=== PATIENT | female | born 1935 | race Caucasian/White ===

== ENCOUNTER 2016-05-03 12:39 | Emergency (ER) | payer MEDICARE, OTHER ==
[2016-05-03 12:58] LABS: Glucose,Whole Blood 226 mg/dL (75-99)
[2016-05-03] MEDS ORDERED: SODIUM CHLORIDE 0.9% 1,000 ML IV STA ×2 (13:02)
--- NOTE | 2016-05-03 13:28 | ED ---
General Adult HPI - General Chief complaint: Syncope Stated complaint: Fall/left arm pain Time Seen by Provider: 05/03/16 12:45 Source: patient, RN notes reviewed, old records reviewed Mode of arrival: EMS Limitations: physical limitation - History of Present Illness Initial comments: This is an 80-year-old female to the ER status post fall. Patient has syncope then fall. Patient states she went to give her son a hog he is coming over the house, she turned around and then doesn't remember anything woke up on the ground. Patient denies hitting her head complaining of left shoulder pain. Patient denies any history of chest pain shortness of breath without pain or headache. Patient currently is without chest patient was developing a headache. Patient left - Related Data Home Medications Medication Instructions Recorded Confirmed Donepezil [Aricept] 10 mg PO HS 02/15/15 05/03/16 Fenofibrate [Lofibra] 160 mg PO HS 02/15/15 05/03/16 Pantoprazole Sodium [Protonix] 40 mg PO QAM 02/15/15 05/03/16 Ascorbic Acid [Vitamin C] 500 mg PO HS 05/03/16 05/03/16 Cetirizine HCl 10 mg PO DAILY 05/03/16 05/03/16 Cholecalciferol [Vitamin D3] 5,000 unit PO HS 05/03/16 05/03/16 Clopidogrel [Plavix] 75 mg PO DAILY 05/03/16 05/03/16 Ferrous Sulfate [Feosol] 325 mg PO HS 05/03/16 05/03/16 Furosemide [Lasix] 40 mg PO DAILY 05/03/16 05/03/16 Glimepiride [Amaryl] 1 mg PO AC-BRKFST 05/03/16 05/03/16 Losartan/Hydrochlorothiazide 0.5 tab PO QAM 05/03/16 05/03/16 [Losartan-Hctz 100-25 mg Tab] Metoprolol Tartrate [Lopressor] 12.5 mg PO HS 05/03/16 05/03/16 Multivitamins, Thera [Multivitamin] 1 tab PO HS 05/03/16 05/03/16 Potassium Chloride ER [K-Dur 10] 10 meq PO HS 05/03/16 05/03/16 Sennosides [Senna] 8.6 mg PO HS PRN 05/03/16 05/03/16 Sertraline [Zoloft] 100 mg PO HS 05/03/16 05/03/16 Allergies Allergy/AdvReac Type Severity Reaction Status Date / Time No Known Allergies Allergy Verified 05/03/16 13:39 Review of Systems ROS Statement: Those systems with pertinent positive or pertinent negative responses have been documented in the HPI. ROS Other: All systems not noted in ROS Statement are negative. Past Medical History Past Medical History: Coronary Artery Disease (CAD), Diabetes Mellitus, GERD/ Reflux, Hyperlipidemia, Hypertension, Liver Disease, Myocardial Infarction (NH) , Osteoarthritis (OA) Additional Past Medical History / Comment(s): 02/15/15 Pt transferred from [facility] with L sided acdominal pain with onset 1500 02/14/15. Pain radiated to L shoulder. Pt admitted with SBO. Other HX: dysphagia at times, falls, cirrhosis, anemia, blood in stool. Last Myocardial Infarction Date:: 2009 History of Any Multi-Drug Resistant Organisms: None Reported Past Surgical History: Adenoidectomy, Cholecystectomy, Coronary Bypass/CABG, Heart Catheterization, Tonsillectomy, Tubal Ligation Additional Past Surgical History / Comment(s): 2009 Cab[facility] in [place], 04/16/10 colonoscopy with benign polypectomy, liver surgery-unkn what type, cataract removal bilaterally. Past Anesthesia/Blood Transfusion Reactions: Postoperative Nausea & Vomiting ( PONV) Past Psychological History: Depression Additional Psychological History / Comment(s): Pt has history of depression but states that was in the past and no longer an issue for her. She is . She lives alone. She uses a walker to ambulate. She does not drive-her family take her places. Smoking Status: Never smoker Past Alcohol Use History: None Reported Past Drug Use History: None Reported - Past Family History Father Family Medical History: Diabetes Mellitus Additional Family Medical History / Comment(s): Pt believes her father was diabetic. He had toes amputated. He in his 90s Mother Family Medical History: Unable to Obtain Additional Family Medical History / Comment(s): Pt knows that her mother was unhealthy but does not know what health problems she might have had. she at 87yrs. General Exam Limitations: physical limitation General appearance: alert, in no apparent distress Head exam: Present: atraumatic, normocephalic, normal inspection Eye exam: Present: normal appearance, PERRL, EOMI. Absent: scleral icterus, conjunctival injection, periorbital swelling ENT exam: Present: normal exam, mucous membranes moist Neck exam: Present: normal inspection. Absent: tenderness, meningismus, lymphadenopathy Respiratory exam: Present: normal lung sounds bilaterally. Absent: respiratory distress, wheezes, rales, rhonchi, stridor Cardiovascular Exam: Present: regular rate, normal rhythm, normal heart sounds. Absent: systolic murmur, diastolic murmur, rubs, gallop, clicks GI/Abdominal exam: Present: soft, normal bowel sounds. Absent: distended, tenderness, guarding, rebound, rigid Extremities exam: Present: normal inspection, full ROM, normal capillary refill , other (Left shoulder deformity). Absent: tenderness, pedal edema, joint swelling, calf tenderness Back exam: Present: normal inspection Neurological exam: Present: alert, oriented X3, CN II-XII intact Psychiatric exam: Present: normal affect, normal mood Skin exam: Present: warm, dry, intact, normal color. Absent: rash Course Vital Signs 05/03/16 05/03/16 05/03/16 12:41 14:20 15:14 Temperature 100.0 F H 97.8 F Pulse Rate 71 71 70 Respiratory 18 Rate Blood Pressure 149/63 88/45 O2 Sat by Pulse 95 96 98 Oximetry 05/03/16 15:47 Temperature Pulse Rate 73 Respiratory 16 Rate Blood Pressure 123/58 O2 Sat by Pulse 98 Oximetry - Reevaluation(s) Reevaluation #1: 05/03/16 16:40 Patient was no found cause of syncope. Feeling well, pain is controlled. Ambulatory without difficulty EKG Findings - EKG Comments: EKG Findings:: EKG shows normal sinus rhythm rate 76, DC 150, QRS 144, QTC 549 Medical Decision Making - Medical Decision Making 80 female to ER status post fall, fall and syncopal event, no final cause of syncope. Patient has no chest pain shortness of breath or abdominal pain, scans and tests are all negative, patient does have left humerus fracture will follow up with orthopedics with pain control - Lab Data Result diagrams: 05/03/16 13:20 05/03/16 13:20 Lab Results 05/03/16 05/03/16 05/03/16 Range/Units 12:58 13:20 13:20 WBC 8.8 (3.8-10.6) k/uL RBC 3.28 L (3.80-5.40) m/uL Hgb 9.6 L (11.4-16.0) gm/dL Hct 30.4 L (34.0-46.0) % MCV 92.8 (80.0-100.0) fL MCH 29.2 (25.0-35.0) pg MCHC 31.5 (31.0-37.0) g/dL RDW 14.2 (11.5-15.5) % Plt Count 299 (150-450) k/uL Neutrophils % 76 % Lymphocytes % 14 % Monocytes % 7 % Eosinophils % 1 % Basophils % 0 % Neutrophils # 6.7 (1.3-7.7) k/uL Lymphocytes # 1.3 (1.0-4.8) k/uL Monocytes # 0.6 (0-1.0) k/uL Eosinophils # 0.1 (0-0.7) k/uL Basophils # 0.0 (0-0.2) k/uL PT (9.0-12.0) sec INR (<1.1) APTT (22.0-30.0) sec D-Dimer (<0.60) mg/L FEU Sodium (137-145) mmol/L Potassium (3.5-5.1) mmol/L Chloride (98-107) mmol/L Carbon Dioxide (22-30) mmol/L Anion Gap mmol/L BUN (7-17) mg/dL Creatinine (0.52-1.04) mg/dL Est GFR (MDRD) Af Amer (>60 ml/min/1.73 sqM) Est GFR (MDRD) Non-Af (>60 ml/min/1.73 sqM) Glucose (74-99) mg/dL POC Glucose (mg/dL) 226 H (75-99) mg/dL POC Glu Music Director ID Gabbi, Jillian Calcium (8.4-10.2) mg/dL Phosphorus (2.5-4.5) mg/dL Magnesium (1.6-2.3) mg/dL Total Bilirubin (0.2-1.3) mg/dL AST (14-36) U/L ALT (9-52) U/L Alkaline Phosphatase (38-126) U/L Total Creatine Kinase 60 (30-135) U/L CK-MB (CK-2) 0.6 (0.0-2.4) ng/mL CK-MB (CK-2) Rel Index 1.0 Troponin I <0.012 (0.000-0.034) ng/mL Total Protein (6.3-8.2) g/dL Albumin (3.5-5.0) g/dL 05/03/16 05/03/16 Range/Units 13:20 13:20 WBC (3.8-10.6) k/uL RBC (3.80-5.40) m/uL Hgb (11.4-16.0) gm/dL Hct (34.0-46.0) % MCV (80.0-100.0) fL MCH (25.0-35.0) pg MCHC (31.0-37.0) g/dL RDW (11.5-15.5) % Plt Count (150-450) k/uL Neutrophils % % Lymphocytes % % Monocytes % % Eosinophils % % Basophils % % Neutrophils # (1.3-7.7) k/uL Lymphocytes # (1.0-4.8) k/uL Monocytes # (0-1.0) k/uL Eosinophils # (0-0.7) k/uL Basophils # (0-0.2) k/uL PT 10.6 (9.0-12.0) sec INR 1.1 (<1.1) APTT 20.8 L (22.0-30.0) sec D-Dimer 5.57 H (<0.60) mg/L FEU Sodium 141 (137-145) mmol/L Potassium 3.6 (3.5-5.1) mmol/L Chloride 102 (98-107) mmol/L Carbon Dioxide 28 (22-30) mmol/L Anion Gap 11 mmol/L BUN 32 H (7-17) mg/dL Creatinine 1.28 H (0.52-1.04) mg/dL Est GFR (MDRD) Af Amer 49 (>60 ml/min/1.73 sqM) Est GFR (MDRD) Non-Af 40 (>60 ml/min/1.73 sqM) Glucose 207 H (74-99) mg/dL POC Glucose (mg/dL) (75-99) mg/dL POC Glu Music Director ID Calcium 9.5 (8.4-10.2) mg/dL Phosphorus 2.8 (2.5-4.5) mg/dL Magnesium 2.0 (1.6-2.3) mg/dL Total Bilirubin 0.4 (0.2-1.3) mg/dL AST 27 (14-36) U/L ALT 24 (9-52) U/L Alkaline Phosphatase 47 (38-126) U/L Total Creatine Kinase (30-135) U/L CK-MB (CK-2) (0.0-2.4) ng/mL CK-MB (CK-2) Rel Index Troponin I (0.000-0.034) ng/mL Total Protein 6.5 (6.3-8.2) g/dL Albumin 3.9 (3.5-5.0) g/dL - Radiology Data Radiology results: report reviewed (X-ray left humerus positive for comminuted fracture, chest x-ray pelvis x-ray negative for traumatic injury, is CT chest for PE is negative, LOWER EXTREMITY IS NEGATIVE FOR DVT, CT BRAIN AND C-SPINE NEGATIVE FOR ACUTE DISEASE), image reviewed Disposition Clinical Impression: Comminuted left humeral fracture Disposition: HOME SELF-CARE Condition: Good Referrals: Franca Irving DO [Primary Care Provider] - 1-2 days Reed Lopez MD [STAFF PHYSICIAN] - 1-2 days
[2016-05-03 13:33] LABS: Basophils % (A) 0 %; CH 29.8; CHCM 32.3; Eosinophils # (A) 0.1 k/uL (0-0.7); Eosinophils % (A) 1 %; HCT 30.4 % (34.0-46.0); HDW 2.45; HGB 9.6 gm/dL (11.4-16.0); Luc # (Auto) 0.12; Luc % (Auto) 1; Lymphocytes # (A) 1.3 k/uL (1.0-4.8); Lymphocytes % (A) 14 %; MCH 29.2 pg (25.0-35.0); MCHC 31.5 g/dL (31.0-37.0); MCV 92.8 fL (80.0-100.0); Monocytes # (A) 0.6 k/uL (0-1.0); Monocytes % (A) 7 %; Neutrophils # (A) 6.7 k/uL (1.3-7.7); Neutrophils % (A) 76 %; RBC 3.28 m/uL (3.80-5.40); RDW 14.2 % (11.5-15.5); WBC 8.8 k/uL (3.8-10.6); WBC (Perox) 8.84
[2016-05-03 13:52] LABS: Calcium 9.5 mg/dL (8.4-10.2); Phosphorous 2.8 mg/dL (2.5-4.5); Potassium 3.6 mmol/L (3.5-5.1); Total Bilirubin 0.4 mg/dL (0.2-1.3); Total Protein 6.5 g/dL (6.3-8.2)
[2016-05-03 13:58] LABS: Creatine Kinase 60 U/L (30-135); INR 1.1 (<1.1); Prothrombin Time 10.6 sec (9.0-12.0)
[2016-05-03 14:07] LABS: Partial Thromboplastin Time 20.8 sec (22.0-30.0)
[2016-05-03 14:11] LABS: Creatine Kinase MB 0.6 ng/mL (0.0-2.4); Troponin I <0.012 ng/mL (0.000-0.034)
--- NOTE | 2016-05-03 14:12 | CT ---
EXAMINATION TYPE: CT brain melissa sunshine con DATE OF EXAM: 05/03/2016 1:48 PM COMPARISON: NONE HISTORY: Fall. Syncopal episode CT DLP: 1407.50 mGycm Automated exposure control for dose reduction was used. TECHNIQUE: CT scan of the head and cervical spine are performed without contrast. FINDINGS: There is cerebral cortical atrophy. There is no mass effect or midline shift. There is no sign of intracranial hemorrhage. The calvarium is intact. The cervical vertebra have fairly normal alignment. There is degenerative disc space narrowing from C 4 to C7 with spurring of the endplates. Facet joints are intact. I see no fracture. Skull base is int act. There is posterior endplate spur formation from C4 to C7 with variable bony spinal stenosis. Pos terior elements are intact. IMPRESSION: Cerebral atrophy. No acute intracranial abnormality. Multilevel spondylosis with evidence of some bony spinal stenosis at C4-5 and C6-7. No fracture.
[2016-05-03] MEDS ORDERED: RX INFO: IV CONTRAST WAS GIVEN 1 EACH MISC MISCELLANE PRN (14:28)
--- NOTE | 2016-05-03 14:32 | XR ---
EXAMINATION TYPE: XR humerus LT DATE OF EXAM: 05/03/2016 2:15 PM COMPARISON: NONE HISTORY: Fall. Pain and swelling. TECHNIQUE: 3 views FINDINGS: There is a comminuted impacted humeral neck fracture. There is no dislocation. There is dis placement up to 1 cm. Elbow joint appears intact. There is soft tissue deformity over the posterior e lbow that could relate to laceration. IMPRESSION: Impacted comminuted humeral neck fracture. Possible laceration at the elbow.
--- NOTE | 2016-05-03 14:34 | XR ---
EXAMINATION TYPE: XR chest 1V DATE OF EXAM: 05/03/2016 2:15 PM COMPARISON: 02/26/2015 HISTORY: Injury TECHNIQUE: Single frontal view of the chest is obtained. FINDINGS: The heart is enlarged. There is no heart failure. Costophrenic angles are clear. There are no hilar masses. Thoracic aorta is atheromatous. There are sternal wires. IMPRESSION: Cardiomegaly. No heart failure. Lungs appear clear. There is clearing of pleural effusio ns bilaterally compared to old exam.
--- NOTE | 2016-05-03 14:35 | XR ---
EXAMINATION TYPE: XR pelvis AP view DATE OF EXAM: 05/03/2016 2:15 PM COMPARISON: NONE HISTORY: Injury. Pain. TECHNIQUE: Single view FINDINGS: The pelvic ring is intact. Proximal femurs are intact. There is acetabular spurring. There is some atherosclerotic mild vascular calcification. Sacroiliac joints appear intact. IMPRESSION: No acute abnormality of the pelvis.
[2016-05-03] MEDS ORDERED: SODIUM CHLORIDE 0.9% 1,000 ML IV ONE (15:14)
--- NOTE | 2016-05-03 15:39 | CT ---
EXAMINATION TYPE: CT angio chest DATE OF EXAM: 05/03/2016 3:33 PM COMPARISON: NONE HISTORY: Fall. Syncope. Left arm pain. CT DLP: 309.70 mGycm Automated exposure control for dose reduction was used. CONTRAST: CTA scan of the thorax is performed with IV Contrast, patient injected with 80 ml mL of Visipaque 320 , pulmonary embolism protocol. There are 3-D post processed images.. FINDINGS: There is mild linear density at the lung bases consistent with focal atelectasis. Heart is enlarged. There is no pericardial effusion. There is no pleural effusion. Thoracic aorta is atheromatous. There is mild aneurysm of the ascending aorta measures 4 cm. There is normal contrast opacification of the pulmonary arteries. I see no filling defect. There are no hilar masses. There is no mediastinal adenopathy. The bony thorax is intact. IMPRESSION: NO EVIDENCE OF PULMONARY EMBOLISM. ATHEROSCLEROTIC VASCULAR DISEASE. 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 MILD ATELECTASIS AT THE POSTERIOR LUNG BASES. CARDIOMEGALY.
[2016-05-03 15:51] VITALS: BP 123/58; PULSE 73; RESP 16
[2016-05-03] MEDS ORDERED: MORPHINE SULFATE 4 MG/ML SYRINGE IVP STA (15:51)
--- NOTE | 2016-05-03 16:53 | US ---
EXAMINATION TYPE: US venous doppler duplex LE BI DATE OF EXAM: 05/03/2016 2:29 PM COMPARISON: NONE CLINICAL HISTORY: Pain. Fall SIDE PERFORMED: Bilateral VESSELS IMAGED: External Iliac Vein (EIV) Common Femoral Vein Deep Femoral Vein Greater Saphenous Vein * Femoral Vein Popliteal Vein Small Saphenous Vein * Proximal Calf Veins (* superficial vessels) TECHNOLOGIST IMPRESSION: wnl Right Leg: Negative for DVT Left Leg: Negative for DVT IMPRESSION: Normal exam. No evidence of deep venous thrombosis in the left and right leg.
[2016-05-03 17:12] LABS: Appearance,Urine Clear (Clear); Bilirubin,Urine Negative (Negative); Glucose,Urine (UA) 1+ (Negative); Ketones,Urine Negative (Negative); Leukocyte Esterase,Urine Negative (Negative); Nitrite,Urine Negative (Negative); Protein,Urine Negative (Negative); Specific Gravity,Urine 1.013 (1.001-1.035); UA Billing (MACRO vs. MICRO) CHEM; Urobilinogen,Urine <2.0 mg/dL (<2.0)
[2016-05-03 17:26] VITALS: TEMP 96.6
== END 2016-05-03 17:30 | disposition home or self-care (01) ==
LOC: EC 12:39
DX: S42.292A Other displaced fracture of upper end of left humerus, initial encounter for closed fracture (principal); R55 Syncope and collapse; W18.39XA Other fall on same level, initial encounter; I10 Essential (primary) hypertension; E78.5 Hyperlipidemia, unspecified; E11.9 Type 2 diabetes mellitus without complications; K21.9 Gastro-esophageal reflux disease without esophagitis; I25.10 Atherosclerotic heart disease of native coronary artery without angina pectoris; M19.90 Unspecified osteoarthritis, unspecified site; F32.9 Major depressive disorder, single episode, unspecified; K74.60 Unspecified cirrhosis of liver; Z95.1 Presence of aortocoronary bypass graft; Z79.02 Long term (current) use of antithrombotics/antiplatelets; Z79.84 Long term (current) use of oral hypoglycemic drugs; Z79.899 Other long term (current) drug therapy
CPT/HCPCS: 99285 ×2; 96374 ×2; 96361 ×5; 36415; 93005; 85379; 80053; 82550; 82553; 83735; 84100; 84484; 85025; 85610; 85730; 81003; 87086; 71010; 72170; 73060; 93970; 72125; 70450; 71275; J2270; Q9967

== ENCOUNTER → 2016-05-08 | Outpatient (CLI) | payer MEDICARE, OTHER ==
--- NOTE | 2016-05-09 08:26 | CT ---
EXAMINATION TYPE: CT upper extremity LT wo con DATE OF EXAM: 05/08/2016 8:03 PM COMPARISON: NONE HISTORY: Left humerus fx. CT DLP: 349.[address] of the left shoulder with reconstruction imaging. TECHNIQUE: Unenhanced CT of the left shoulder was performed with bone and soft tissue window settings submitted in the axial coronal and sagittal planes. At a separate workstation [id number] TR imaging was ob tained. FINDINGS: Mildly comminuted, mildly impacted left humeral neck fracture. 6 mm displacement of a fracture compon ent. Nondisplaced fracture is also noted in the region of the greater tuberosity. There is associated sharmin rthrosis. No additional fractures within the field of view. Glenohumeral joint space is well-preserved. There is evidence of AC joint arthropathy. Osseous struct ures about the left elbow and left ribs are grossly intact. IMPRESSION: 1. Mildly comminuted, mildly impacted left humeral neck fracture.
== END | disposition home or self-care (01) ==
LOC: RADCTMAIN 19:13
PROVIDERS: ATTEND Orthopaedic Surgery
DX: S42.292A Other displaced fracture of upper end of left humerus, initial encounter for closed fracture (principal)

== ENCOUNTER 2016-05-30 19:34 | Inpatient (IN) | payer MEDICARE, OTHER ==
[2016-05-30 20:10] LABS: Basophils % (A) 0 %; CHCM 30.8; Eosinophils # (A) 0.2 k/uL (0-0.7); Eosinophils % (A) 3 %; HCT 24.2 % (34.0-46.0); HDW 3.17; Hypochromasia Marked; Luc # (Auto) 0.21; Luc % (Auto) 4; Lymphocytes # (A) 1.3 k/uL (1.0-4.8); Lymphocytes % (A) 21 %; MCHC 30.7 g/dL (31.0-37.0); MCV 91.4 fL (80.0-100.0); Mean Platelet Volume 7.5; Monocytes # (A) 0.5 k/uL (0-1.0); Monocytes % (A) 9 %; Neutrophils # (A) 3.9 k/uL (1.3-7.7); Neutrophils % (A) 64 %; RBC 2.64 m/uL (3.80-5.40); RDW 14.4 % (11.5-15.5); WBC 6.1 k/uL (3.8-10.6); WBC (Perox) 6.22
[2016-05-30 20:18] LABS: HGB 7.4 gm/dL (11.4-16.0)
[2016-05-30 20:21] LABS: INR 1.2 (<1.1); Partial Thromboplastin Time 22.8 sec (22.0-30.0); Prothrombin Time 11.8 sec (9.0-12.0)
[2016-05-30] MEDS ORDERED: ALBUTEROL NEBULIZED 2.5 MG/3 ML INHALATION STA (20:21)
--- NOTE | 2016-05-30 20:25 | ED ---
General Adult HPI - General Chief complaint: Chest Pain Stated complaint: hyperglycemia Time Seen by Provider: 05/30/16 20:08 Source: patient Mode of arrival: EMS Limitations: no limitations - History of Present Illness Initial comments: 80-year-old female history of coronary disease with previous coronary bypass surgery about 7 years ago since with sharp anterior chest pain that began about 6:30 tonight. She's been coughing for the last several days no phlegm no distinct fever or chills. Some shortness of breath. Declines that she smokes. No nausea vomiting no radiation of pain recently broke her left shoulder is tender to focal numbness or weakness. Pain is described it somewhat pleuritic with worse with cough and deep breathe - Related Data Home Medications Medication Instructions Recorded Confirmed Donepezil [Aricept] 10 mg PO HS 02/15/15 05/30/16 Fenofibrate [Lofibra] 160 mg PO HS 02/15/15 05/30/16 Pantoprazole Sodium [Protonix] 40 mg PO QA 02/15/15 05/30/16 Ascorbic Acid [Vitamin C] 500 mg PO HS 05/03/16 05/30/16 Cetirizine HCl 10 mg PO DAILY 05/03/16 05/30/16 Cholecalciferol [Vitamin D3] 5,000 unit PO HS 05/03/16 05/30/16 Clopidogrel [Plavix] 75 mg PO DAILY 05/03/16 05/30/16 Ferrous Sulfate [Feosol] 325 mg PO HS 05/03/16 05/30/16 Furosemide [Lasix] 40 mg PO DAILY 05/03/16 05/30/16 Metoprolol Tartrate [Lopressor] 12.5 mg PO HS 05/03/16 05/30/16 Multivitamins, Thera [Multivitamin] 1 tab PO HS 05/03/16 05/30/16 Potassium Chloride ER [K-Dur 10] 10 meq PO HS 05/03/16 05/30/16 Sennosides [Senna] 8.6 mg PO HS PRN 05/03/16 05/30/16 Sertraline [Zoloft] 100 mg PO HS 05/03/16 05/30/16 Acetaminophen [Tylenol Arthritis] 1,300 mg PO BID PRN 05/30/16 05/30/16 Nitroglycerin Sl Tabs [Nitrostat] 0.4 mg SUBLINGUAL Q5M PRN 05/30/16 05/30/16 Allergies Allergy/AdvReac Type Severity Reaction Status Date / Time No Known Allergies Allergy Verified 05/30/16 20:01 Review of Systems ROS Statement: Those systems with pertinent positive or pertinent negative responses have been documented in the HPI. ROS Other: All systems not noted in ROS Statement are negative. Constitutional: Denies: fever, chills ENT: Denies: ear pain, throat pain Respiratory: Reports: cough Cardiovascular: Reports: chest pain Gastrointestinal: Denies: abdominal pain, nausea, vomiting Genitourinary: Denies: frequency Skin: Denies: rash Neurological: Denies: headache Psychiatric: Denies: anxiety, depression Hematological/Lymphatic: Denies: easy bleeding, easy bruising Past Medical History Past Medical History: Coronary Artery Disease (CAD), Diabetes Mellitus, GERD/ Reflux, Hyperlipidemia, Hypertension, Liver Disease, Myocardial Infarction (IA) , Osteoarthritis (OA) Additional Past Medical History / Comment(s): 02/15/15 Pt transferred from [facility] with L sided acdominal pain with onset 1500 02/14/15. Pain radiated to L shoulder. Pt admitted with SBO. Other HX: dysphagia at times, falls, cirrhosis, anemia, blood in stool. Last Myocardial Infarction Date:: 2009 History of Any Multi-Drug Resistant Organisms: None Reported Past Surgical History: Adenoidectomy, Cholecystectomy, Coronary Bypass/CABG, Heart Catheterization, Tonsillectomy, Tubal Ligation Additional Past Surgical History / Comment(s): 2009 Cabg in [place], 04/16/10 colonoscopy with benign polypectomy, liver surgery-unkn what type, cataract removal bilaterally. Past Anesthesia/Blood Transfusion Reactions: Postoperative Nausea & Vomiting ( PONV) Past Psychological History: Depression Additional Psychological History / Comment(s): Pt has history of depression but states that was in the past and no longer an issue for her. She is . She lives alone. She uses a walker to ambulate. She does not drive-her family take her places. Smoking Status: Never smoker Past Alcohol Use History: None Reported Past Drug Use History: None Reported - Past Family History Father Family Medical History: Diabetes Mellitus Additional Family Medical History / Comment(s): Pt believes her father was diabetic. He had toes amputated. He in his 90s Mother Family Medical History: Unable to Obtain Additional Family Medical History / Comment(s): Pt knows that her mother was unhealthy but does not know what health problems she might have had. she at 87yrs. General Exam Limitations: no limitations General appearance: alert, in no apparent distress Head exam: Present: atraumatic Eye exam: Present: PERRL, EOMI ENT exam: Present: normal oropharynx Respiratory exam: Present: wheezes Cardiovascular Exam: Present: regular rate, normal heart sounds GI/Abdominal exam: Present: soft. Absent: distended, tenderness Neurological exam: Present: alert, CN II-XII intact Psychiatric exam: Present: normal affect, normal mood Skin exam: Present: warm, dry Course Vital Signs 05/30/16 05/30/16 05/30/16 19:50 20:51 21:04 Temperature 99.3 F Pulse Rate 89 84 82 Respiratory 26 H Rate Blood Pressure 185/107 O2 Sat by Pulse 91 L Oximetry 05/30/16 21:49 Temperature 99.9 F H Pulse Rate 88 Respiratory 20 Rate Blood Pressure 158/72 O2 Sat by Pulse 98 Oximetry Medical Decision Making - Medical Decision Making Discussed with the Dr. Arechiga patient is admitted. - Lab Data Result diagrams: 05/30/16 20:00 05/30/16 20:00 Lab Results 05/30/16 05/30/16 05/30/16 Range/Units 20:00 20:00 20:00 WBC 6.1 (3.8-10.6) k/uL RBC 2.64 L (3.80-5.40) m/uL Hgb 7.4 L D (11.4-16.0) gm/dL Hct 24.2 L (34.0-46.0) % MCV 91.4 (80.0-100.0) fL MCH 28.0 (25.0-35.0) pg MCHC 30.7 L (31.0-37.0) g/dL RDW 14.4 (11.5-15.5) % Plt Count 347 (150-450) k/uL Neutrophils % 64 % Lymphocytes % 21 % Monocytes % 9 % Eosinophils % 3 % Basophils % 0 % Neutrophils # 3.9 (1.3-7.7) k/uL Lymphocytes # 1.3 (1.0-4.8) k/uL Monocytes # 0.5 (0-1.0) k/uL Eosinophils # 0.2 (0-0.7) k/uL Basophils # 0.0 (0-0.2) k/uL Hypochromasia Marked PT (9.0-12.0) sec INR (<1.1) APTT (22.0-30.0) sec D-Dimer (<0.60) mg/L FEU Sodium 140 (137-145) mmol/L Potassium 3.3 L (3.5-5.1) mmol/L Chloride 103 (98-107) mmol/L Carbon Dioxide 25 (22-30) mmol/L Anion Gap 12 mmol/L BUN 17 (7-17) mg/dL Creatinine 1.08 H (0.52-1.04) mg/dL Est GFR (MDRD) Af Amer 59 (>60 ml/min/1.73 sqM) Est GFR (MDRD) Non-Af 49 (>60 ml/min/1.73 sqM) Glucose 211 H (74-99) mg/dL Calcium 8.7 (8.4-10.2) mg/dL Magnesium 1.7 (1.6-2.3) mg/dL Total Bilirubin 0.6 (0.2-1.3) mg/dL AST 19 (14-36) U/L ALT 19 (9-52) U/L Alkaline Phosphatase 61 (38-126) U/L Total Creatine Kinase 25 L (30-135) U/L CK-MB (CK-2) 0.3 (0.0-2.4) ng/mL CK-MB (CK-2) Rel Index 1.2 Troponin I 0.034 (0.000-0.034) ng/mL NT-Pro-B Natriuret Pep pg/mL Total Protein 5.7 L (6.3-8.2) g/dL Albumin 3.2 L (3.5-5.0) g/dL Stool Occult Blood (Negative) Blood Type Blood Type Recheck Antibody Screen Spec Expiration Date 05/30/16 05/30/16 05/30/16 Range/Units 20:00 20:00 20:00 WBC (3.8-10.6) k/uL RBC (3.80-5.40) m/uL Hgb (11.4-16.0) gm/dL Hct (34.0-46.0) % MCV (80.0-100.0) fL MCH (25.0-35.0) pg MCHC (31.0-37.0) g/dL RDW (11.5-15.5) % Plt Count (150-450) k/uL Neutrophils % % Lymphocytes % % Monocytes % % Eosinophils % % Basophils % % Neutrophils # (1.3-7.7) k/uL Lymphocytes # (1.0-4.8) k/uL Monocytes # (0-1.0) k/uL Eosinophils # (0-0.7) k/uL Basophils # (0-0.2) k/uL Hypochromasia PT 11.8 (9.0-12.0) sec INR 1.2 (<1.1) APTT 22.8 (22.0-30.0) sec D-Dimer 3.03 H (<0.60) mg/L FEU Sodium (137-145) mmol/L Potassium (3.5-5.1) mmol/L Chloride (98-107) mmol/L Carbon Dioxide (22-30) mmol/L Anion Gap mmol/L BUN (7-17) mg/dL Creatinine (0.52-1.04) mg/dL Est GFR (MDRD) Af Amer (>60 ml/min/1.73 sqM) Est GFR (MDRD) Non-Af (>60 ml/min/1.73 sqM) Glucose (74-99) mg/dL Calcium (8.4-10.2) mg/dL Magnesium (1.6-2.3) mg/dL Total Bilirubin (0.2-1.3) mg/dL AST (14-36) U/L ALT (9-52) U/L Alkaline Phosphatase (38-126) U/L Total Creatine Kinase (30-135) U/L CK-MB (CK-2) (0.0-2.4) ng/mL CK-MB (CK-2) Rel Index Troponin I (0.000-0.034) ng/mL NT-Pro-B Natriuret Pep 3000 pg/mL Total Protein (6.3-8.2) g/dL Albumin (3.5-5.0) g/dL Stool Occult Blood (Negative) Blood Type Blood Type Recheck Antibody Screen Spec Expiration Date 05/30/16 05/30/16 Range/Units 20:00 21:15 WBC (3.8-10.6) k/uL RBC (3.80-5.40) m/uL Hgb (11.4-16.0) gm/dL Hct (34.0-46.0) % MCV (80.0-100.0) fL MCH (25.0-35.0) pg MCHC (31.0-37.0) g/dL RDW (11.5-15.5) % Plt Count (150-450) k/uL Neutrophils % % Lymphocytes % % Monocytes % % Eosinophils % % Basophils % % Neutrophils # (1.3-7.7) k/uL Lymphocytes # (1.0-4.8) k/uL Monocytes # (0-1.0) k/uL Eosinophils # (0-0.7) k/uL Basophils # (0-0.2) k/uL Hypochromasia PT (9.0-12.0) sec INR (<1.1) APTT (22.0-30.0) sec D-Dimer (<0.60) mg/L FEU Sodium (137-145) mmol/L Potassium (3.5-5.1) mmol/L Chloride (98-107) mmol/L Carbon Dioxide (22-30) mmol/L Anion Gap mmol/L BUN (7-17) mg/dL Creatinine (0.52-1.04) mg/dL Est GFR (MDRD) Af Amer (>60 ml/min/1.73 sqM) Est GFR (MDRD) Non-Af (>60 ml/min/1.73 sqM) Glucose (74-99) mg/dL Calcium (8.4-10.2) mg/dL Magnesium (1.6-2.3) mg/dL Total Bilirubin (0.2-1.3) mg/dL AST (14-36) U/L ALT (9-52) U/L Alkaline Phosphatase (38-126) U/L Total Creatine Kinase (30-135) U/L CK-MB (CK-2) (0.0-2.4) ng/mL CK-MB (CK-2) Rel Index Troponin I (0.000-0.034) ng/mL NT-Pro-B Natriuret Pep pg/mL Total Protein (6.3-8.2) g/dL Albumin (3.5-5.0) g/dL Stool Occult Blood Positive H (Negative) Blood Type A Positive Blood Type Recheck No Antibody Screen NEGATIVE Spec Expiration Date 06/02/2016 - 2300 - EKG Data -: EKG Interpreted by Me 05/30/16 20:22 EKG 05/30/2016 1947 ventricular rate 89 bpm, UT interval 158 ms, QRS duration 48 ms, QT interval 480 ms normal sinus rhythm right bundle branch block no acute ST-T changes - Radiology Data Radiology results: report reviewed Chest x-ray shows changes of congestive heart failure. Critical Care Time Critical Care Time: Yes Total Critical Care Time: 30 Disposition Clinical Impression: Upper GI bleeding, CHF (congestive heart failure) Disposition: ADMITTED IP TO THIS [facility] Condition: Critical Referrals: Franca Irving DO [Primary Care Provider] - 1-2 days Time of Disposition: 22:24
[2016-05-30 20:39] LABS: Calcium 8.7 mg/dL (8.4-10.2); Magnesium 1.7 mg/dL (1.6-2.3); Potassium 3.3 mmol/L (3.5-5.1); Total Bilirubin 0.6 mg/dL (0.2-1.3); Total Protein 5.7 g/dL (6.3-8.2)
--- NOTE | 2016-05-30 21:00 | XR ---
EXAMINATION TYPE: XR chest 2V DATE OF EXAM: 05/30/2016 8:42 PM COMPARISON: 05/03/2016 HISTORY: 80-year-old female with chest pain TECHNIQUE: Frontal and lateral views FINDINGS: Heart is mildly enlarged. Perihilar and interstitial densities are present with trace effusions. No f rank consolidation. IMPRESSION: Correlate for CHF with mild interstitial pulmonary edema. Trace pleural effusions.
[2016-05-30 21:10] LABS: Creatine Kinase MB 0.3 ng/mL (0.0-2.4); Troponin I 0.034 ng/mL (0.000-0.034)
[2016-05-30] MEDS ORDERED: FUROSEMIDE 10 MG/ML 2 ML VIAL IV ONE (21:28)
[2016-05-30] MEDS ORDERED: PANTOPRAZOLE 40 MG/10 ML VIAL IVP STA (21:38)
[2016-05-30] MEDS ORDERED: HYDROmorphone 1 MG/ML 1 ML SYRINGE IVP STA (21:48)
[2016-05-30] MEDS ORDERED: POTASSIUM CHLORIDE 10 MEQ, LIDOCAINE 2% INJ 10 MG in SODIUM CHLORIDE 0.9% 100 ML IVPB SCH (22:00)
[2016-05-30] MEDS ORDERED: NALOXONE 0.4 MG/ML 1 ML VIAL IV PRN (22:28)
[2016-05-30 23:33] LABS: Glucose,Whole Blood 203 mg/dL (75-99)
[2016-05-31 00:06] VITALS: BMI 31.6
[2016-05-31] MEDS ORDERED: SENNOSIDES 8.6 MG TAB PO PRN (00:54)
[2016-05-31] MEDS: HYDROmorphone 1 MG/ML 1 ML SYRINGE IVP PRN ×3 (01:08→19:46)
[2016-05-31] MEDS: ONDANSETRON 4 MG/2 ML VIAL IVP PRN (01:08)
[2016-05-31] MEDS ORDERED: BENZOCAINE/MENTHOL LOZENG 1 EACH LOZENGE MUCOUS MEM PRN (01:49)
[2016-05-31] MEDS ORDERED: RX INFO: IV CONTRAST WAS GIVEN 1 EACH MISC MISCELLANE PRN (03:06)
[2016-05-31 03:22] LABS: Anion Gap 14 mmol/L; Blood Urea Nitrogen 17 mg/dL (7-17); Calcium 8.5 mg/dL (8.4-10.2); Carbon Dioxide 21 mmol/L (22-30); Chloride 107 mmol/L (98-107); Glucose 173 mg/dL (74-99); Magnesium 1.6 mg/dL (1.6-2.3); Non-African American GFR(MDRD) 53 (>60 ml/min/1.73 sqM); Phosphorous 3.5 mg/dL (2.5-4.5); Potassium 3.4 mmol/L (3.5-5.1); Sodium 142 mmol/L (137-145)
--- NOTE | 2016-05-31 03:59 | CT ---
EXAM: CT Angiography Chest With Intravenous Contrast. CLINICAL HISTORY: Reason: SOB, Chest pain TECHNIQUE: Axial computed tomographic angiography images of the chest with intravenous contrast using pulmonary embolism protocol. CTDI is 85.10 mGy and DLP is 433.50 mGy-cm MIP reconstructed images were created and reviewed. COMPARISON: 05/03/16 CTA chest. FINDINGS: Pulmonary arteries: Current exam is more limited including in relation to motion related artifact through the lower lung allen. Also, somewhat suboptimal contrast bolus in that the degree of pulmonary arterial enhancement is less than the degree of systemic arterial enhancement. No definite central or large segmental PE is seen allowing for these limitations. Aorta: No acute findings. Thoracic aorta intact without evidence of dissection. Lungs: There are dependent changes within both lungs, right greater than left, and increased from the prior exam. No mass. Pleural spaces: New small to moderate right and small left pleural effusions. No pneumothorax. Heart: Atherosclerotic disease again includes diffuse coronary artery calcification with previous median sternotomy and CABG. Stable appearance of cardiomegaly with left ventricular hypertrophy, and aortic valve calcification. No significant pericardial effusion. No evidence of RV dysfunction. Bones: Bones are stable including multilevel degenerative changes without acute fracture seen. Thyroid: Note is made of a tiny 3 mm right thyroid nodule on series 4 image 2. Lymph nodes: Unremarkable. No enlarged lymph nodes. Upper abdomen: Stable appearance of the upper abdomen, where included. IMPRESSION: 1. No definite evidence of pulmonary embolism, assessment for which is more limited than on the prior exam however. 2. Right greater than left pleural effusion suggesting a component of mild volume overload/CHF. 3. Additional findings as above.
[2016-05-31] MEDS ORDERED: Potassium Replacement Protocol 1 EACH MISC MISCELLANE PRN (04:17)
[2016-05-31] MEDS ORDERED: Magnesium Replacement Protocol 1 EACH MISC MISCELLANE PRN (04:18)
[2016-05-31] MEDS: MAGNESIUM SULFATE-D5W PMX 1 GM in DEXTROSE/WATER 1 100ML.BAG IVPB SCH ×2 (04:51→08:40)
[2016-05-31] MEDS ORDERED: POTASSIUM CHLORIDE ER 20 MEQ TAB.ER PO SCH (05:00)
[2016-05-31 07:20] LABS: Appearance,Urine Clear (Clear); Bilirubin,Urine Negative (Negative); Glucose,Urine (UA) Negative (Negative); Ketones,Urine Negative (Negative); Leukocyte Esterase,Urine Negative (Negative); Nitrite,Urine Negative (Negative); PH, Urine 5.5 (5.0-8.0); Protein,Urine Negative (Negative); Specific Gravity,Urine 1.014 (1.001-1.035); UA Billing (MACRO vs. MICRO) CHEM; Urobilinogen,Urine <2.0 mg/dL (<2.0)
--- NOTE | 2016-05-31 07:22 | XR ---
EXAMINATION TYPE: XR chest 1V DATE OF EXAM: 05/31/2016 6:42 AM COMPARISON: 05/30/2016 HISTORY: 80 year-old female shortness of breath TECHNIQUE: Single frontal view of the chest is obtained. FINDINGS: Heart remains mild to moderately enlarged. Median sternotomy wires. Perihilar and interstitial densit ies persist but shows slight interval improvement. IMPRESSION: Continued but improving CHF with interstitial pulmonary edema.
[2016-05-31 07:50] LABS: Glucose,Whole Blood 208 mg/dL (75-99)
[2016-05-31] MEDS: LORATADINE 10 MG TAB PO SCH (08:39)
[2016-05-31] MEDS: PANTOPRAZOLE 40 MG/10 ML VIAL IV SCH (08:39)
[2016-05-31] MEDS: FUROSEMIDE 40 MG TAB PO SCH (08:39)
[2016-05-31] MEDS: INSULIN LISPRO (humaLOG) 300 UNIT/3 ML VIAL SQ SCH ×5 (08:41→20:28)
[2016-05-31 08:42] LABS: Glucose,Whole Blood 289 mg/dL (75-99)
[2016-05-31] MEDS ORDERED: PANTOPRAZOLE 40 MG/10 ML VIAL IVP SCH (09:00)
--- NOTE | 2016-05-31 09:40 | XR ---
EXAMINATION TYPE: XR abdomen 2V DATE OF EXAM: 05/31/2016 9:30 AM CLINICAL DATA: 80 year-old female with abdominal pain, H COMPARISON: 02/25/2015 FINDINGS: There is some patchy bibasilar densities projecting behind the heart on both sides. Cholecystectomy clips. No evidence for free intraperitoneal air. Scattered colonic gas is present extending distally to the rectum. No significant stool burden. No dilated small bowel or air-fluid levels seen. Some left-sided calcifications could be vascular or could represent adrenal calculi measuring up to 7 mm. Surgical material seen in the pelvis. Visceral arterial calcifications noted in the upper abdomen. Pham catheter is present. IMPRESSION: 1. Some patchy bibasilar atelectasis or infiltrates. 2.No evidence of bowel obstruction or free intraperitoneal air. 3. Either some vascular calcifications or left-sided nephrolithiasis measuring up to 7 mm.
[2016-05-31 10:39] LABS: Basophils % (A) 0 %; CH 28.3; CHCM 30.6; Eosinophils # (A) 0.1 k/uL (0-0.7); Eosinophils % (A) 1 %; HCT 31.3 % (34.0-46.0); HDW 4.06; Hypochromasia Marked; Luc % (Auto) 1; Lymphocytes # (A) 0.6 k/uL (1.0-4.8); Lymphocytes % (A) 7 %; MCH 29.1 pg (25.0-35.0); MCHC 31.2 g/dL (31.0-37.0); MCV 93.3 fL (80.0-100.0); Mean Platelet Volume 6.7; Monocytes # (A) 0.4 k/uL (0-1.0); Monocytes % (A) 4 %; Neutrophils # (A) 7.7 k/uL (1.3-7.7); Neutrophils % (A) 87 %; Poikilocytosis Moderate; RBC 3.35 m/uL (3.80-5.40); RDW 14.6 % (11.5-15.5); WBC 8.9 k/uL (3.8-10.6); WBC (Perox) 9.81
[2016-05-31 10:40] LABS: HGB 9.8 gm/dL (11.4-16.0)
--- NOTE | 2016-05-31 11:00 | CONS ---
DATE OF CONSULTATION: REASON FOR CONSULTATION: Coffee-ground emesis and severe anemia. HISTORY OF PRESENT ILLNESS: The patient is an 80-year-old pleasant lady with history of coronary artery disease status post CABG seven years ago, was admitted to the hospital because of chest pain and shortness of breath. Apparently before coming to the hospital she had an episode of coffee-ground emesis at home. She has been complaining of chest pain and epigastric pain for the last 3 days' duration. She denies any recent NSAID use. No prior history of peptic ulcer disease. She is presently receiving 2 units of PRBC transfusion for a hemoglobin of 7, since being in the hospital, she did not have any further episodes of bleeding and no black or tarry stools. She did have EGD and colonoscopy multiple years ago. PAST MEDICAL HISTORY: Significant for coronary artery disease, diabetes mellitus, hypertension, hypercholesterolemia, history of [place] in the past, degenerative joint disease. PAST SURGICAL HISTORY: Appendectomy, cholecystectomy, CABG, tonsillectomy, tubal ligation, MEDICATIONS AT HOME: 1. Nitrostat. 2. Tylenol arthritis. 3. Zoloft. 4. Senna. 5. K-Dur, 6. Multivitamin. 7. Lopressor. 8. Lasix. 9. Feosol. 10. Plavix. 11. Vitamin D3. 12. Protonix. 13. ( ). 14. Aricept. ALLERGIES: None. SOCIAL HISTORY: No smoking. No alcohol use. FAMILY HISTORY: Unremarkable. REVIEW OF SYSTEMS: CARDIOPULMONARY: Some chest pain and shortness of breath. NEUROLOGICAL: Unremarkable. SKIN: Unremarkable. ENDOCRINE: Unremarkable. PSYCHIATRIC: Unremarkable. ENT: Vision unremarkable. GENITOURINARY: Unremarkable. HEMATOLOGY: Severe anemia. PSYCHIATRIC: Unremarkable. MUSCULOSKELETAL: Chronic back pain. ENDOCRINE: Unremarkable. On physical examination, she appears comfortable in no apparent distress. Vitals as are stable. Blood pressure is 137/75, pulse 68, temperature afebrile. HEENT examination unremarkable. Conjunctivae pink. Sclerae anicteric. Oral cavity, no lesions. NECK: No JVD or lymph node enlargement. Chest was clear to auscultation. HEART: Regular rate and rhythm. ABDOMEN: Slightly distended but it was very soft, tenderness in the epigastric area. EXTREMITIES: No organomegaly. No pedal edema. SKIN: No rashes. NEURO: She is alert and oriented x3. No focal deficits. Labs done at the time of admission to hospital: Hemoglobin 7.4. WBC 6.1, platelets are normal. BUN is 21, creatinine one, troponin 0.166. BNP 3000. IMPRESSION: 1. This is a lady who presents with chest pain, epigastric pain, coffee-ground emesis x1 yesterday and noted to have severe anemia with a hemoglobin of 6 requiring 2 units of PRBC transfusion and she had mild elevation of troponin. Cardiology is going to evaluate the patient. No prior history of peptic ulcer disease or recent NSAID use. Presently receiving 2 units of PRBC transfusion and feeling much better. 2. Mild abdominal distention, rule out obstruction. 3. Exacerbation of congestive heart failure. RECOMMENDATIONS: 1. Continue with Protonix 40 mg q.12h. 2. Agree with PRBC transfusion. 3. Repeat CBC. 4. Because of the acute upper gastrointestinal bleed, will proceed with an upper endoscopy tomorrow. Discussed with the patient the risks, benefits complications and she is agreeable to it. Thank you for this consultation.
--- NOTE | 2016-05-31 11:10 | P.HPIM ---
History of Present Illness H&P Date: 05/31/16 Chief Complaint: Chest pain and shortness of breath Patient is an 80-year-old female who presented to [facility] emergency room with a chief complaint of chest pain and shortness of breath. Patient describes a sharp pain in the left side of her chest underneath her breast that comes and goes, she states that pain started 2-3 days ago and has been increasing. Patient also has a history of an episode of loss of consciousness with fall and left shoulder fracture 3 weeks ago per patient. She was evaluated in the emergency room, troponin level was slightly elevated, patient also had evidence of anemia was hemoglobin of 7.4, she had heme positive stools she was admitted to ICU she received red blood cell transfusion. Cardiology consultation and pulmonary consultation were requested for further evaluation of her chest pain and her shortness of breath. Gastroenterology consultation was requested for evaluation of anemia with heme positive stools. Past Medical History Past Medical History: Coronary Artery Disease (CAD), Diabetes Mellitus, GERD/ Reflux, Hyperlipidemia, Hypertension, Liver Disease, Myocardial Infarction ([place]) , Osteoarthritis (OA) Additional Past Medical History / Comment(s): 02/15/15 Pt transferred from [facility] with L sided acdominal pain with onset 1500 02/14/15. Pain radiated to L shoulder. Pt admitted with SBO. Other HX: dysphagia at times, falls, cirrhosis, anemia, blood in stool. Last Myocardial Infarction Date:: 2009 History of Any Multi-Drug Resistant Organisms: None Reported Past Surgical History: Adenoidectomy, Cholecystectomy, Coronary Bypass/CABG, Heart Catheterization, Tonsillectomy, Tubal Ligation Additional Past Surgical History / Comment(s): 2009 Cabg in [place], 04/16/10 colonoscopy with benign polypectomy, liver surgery-unkn what type, cataract removal bilaterally. Past Anesthesia/Blood Transfusion Reactions: Postoperative Nausea & Vomiting ( PONV) Past Psychological History: Depression Additional Psychological History / Comment(s): Pt has history of depression but states that was in the past and no longer an issue for her. She is . She lives alone. She uses a walker to ambulate. She does not drive-her family take her places. Smoking Status: Never smoker Past Alcohol Use History: None Reported Past Drug Use History: None Reported - Past Family History Father Family Medical History: Diabetes Mellitus Additional Family Medical History / Comment(s): Pt believes her father was diabetic. He had toes amputated. He in his 90s Mother Family Medical History: Unable to Obtain Additional Family Medical History / Comment(s): Pt knows that her mother was unhealthy but does not know what health problems she might have had. she at 87yrs. Medications and Allergies Home Medications Medication Instructions Recorded Confirmed Type Donepezil [Aricept] 10 mg PO HS 02/15/15 05/30/16 History Fenofibrate [Lofibra] 160 mg PO HS 02/15/15 05/30/16 History Pantoprazole Sodium [Protonix] 40 mg PO QAM 02/15/15 05/30/16 History Ascorbic Acid [Vitamin C] 500 mg PO HS 05/03/16 05/30/16 History Cetirizine HCl 10 mg PO DAILY 05/03/16 05/30/16 History Cholecalciferol [Vitamin D3] 5,000 unit PO HS 05/03/16 05/30/16 History Clopidogrel [Plavix] 75 mg PO DAILY 05/03/16 05/30/16 History Ferrous Sulfate [Feosol] 325 mg PO HS 05/03/16 05/30/16 History Furosemide [Lasix] 40 mg PO DAILY 05/03/16 05/30/16 History Metoprolol Tartrate [Lopressor] 12.5 mg PO HS 05/03/16 05/30/16 History Multivitamins, Thera [Multivitamin] 1 tab PO HS 05/03/16 05/30/16 History Potassium Chloride ER [K-Dur 10] 10 meq PO HS 05/03/16 05/30/16 History Sennosides [Senna] 8.6 mg PO HS PRN 05/03/16 05/30/16 History Sertraline [Zoloft] 100 mg PO HS 05/03/16 05/30/16 History Acetaminophen [Tylenol Arthritis] 1,300 mg PO BID PRN 05/30/16 05/30/16 History Nitroglycerin Sl Tabs [Nitrostat] 0.4 mg SUBLINGUAL Q5M PRN 05/30/16 05/30/16 History Allergies Allergy/AdvReac Type Severity Reaction Status Date / Time No Known Allergies Allergy Verified 05/30/16 20:01 Physical Exam Vitals: Vital Signs Temp Pulse Resp BP Pulse Ox 05/31/16 10:00 72 30 H 114/55 99 05/31/16 09:00 79 31 H 130/67 96 05/31/16 08:49 99.6 F 75 22 130/67 97 05/31/16 08:00 99.6 F 82 23 140/74 100 05/31/16 07:00 88 20 137/75 100 05/31/16 06:47 98.7 F 87 18 118/67 05/31/16 06:17 98.7 F 89 16 163/74 99 05/31/16 06:07 99.5 F 92 17 137/74 100 05/31/16 06:00 93 22 130/76 100 05/31/16 05:00 96 13 140/71 100 05/31/16 04:00 99.6 F 100 16 137/76 100 05/31/16 03:45 99.6 F 101 H 18 137/73 05/31/16 03:00 114 H 20 113/60 82 L 05/31/16 02:00 112 H 29 H 142/65 93 L 05/31/16 01:58 22 05/31/16 01:30 107 H 32 H 164/65 93 L 05/31/16 01:11 98.7 F 108 H 22 119/66 92 L 05/31/16 01:00 84 23 153/57 92 L 05/31/16 00:41 99.1 F 85 20 153/65 92 L 05/31/16 00:31 98.6 F 82 16 152/65 93 L 05/31/16 00:30 83 23 141/63 93 L 05/31/16 00:00 98.7 F 85 13 148/61 95 05/30/16 23:34 94 L 05/30/16 23:33 91 93 L 05/30/16 22:45 98.8 F Intake and Output 05/30/16 05/31/16 05/31/16 22:59 06:59 14:59 Intake Total 430 630 Output Total 450 190 Balance -20 440 Intake: IV 100 80 .9 KVO 100 80 Oral 20 240 Blood Product 310 310 Rc As-1 Unit 310 [id number] Rc As-1 Unit 0 310 [id number] Output: Urine 450 190 Other: Voiding Method Indwelling Catheter Indwelling Catheter # Emeses 1 Weight 76 kg 76 kg 76 kg Patient Weight 06/01/16 06:59 Weight 76 kg In general patient is alert and oriented 3 in no apparent distress HEENT head normocephalic and atraumatic Neck is supple no JVD no goiter no lymphadenopathy Chest exam reveals a few scattered crackles bilaterally no wheezing Cardiac exam reveals regular heart sounds no gallops no murmurs Abdomen is soft nontender no organomegaly Extremity exam reveals no edema no cyanosis or clubbing Results CBC & Chem 7: 05/31/16 09:58 05/31/16 02:38 Labs: Abnormal Lab Results - Last 24 Hours (Table) 05/30/16 05/31/16 05/31/16 Range/Units 23:31 02:38 02:38 RBC (3.80-5.40) m/uL Hgb (11.4-16.0) gm/dL Hct (34.0-46.0) % Lymphocytes # (1.0-4.8) k/uL Potassium 3.4 L (3.5-5.1) mmol/L Carbon Dioxide 21 L (22-30) mmol/L Glucose 173 H (74-99) mg/dL POC Glucose (mg/dL) 203 H (75-99) mg/dL Troponin I 0.166 H* (0.000-0.034) ng/mL 05/31/16 05/31/16 05/31/16 Range/Units 07:47 08:41 09:58 RBC 3.35 L (3.80-5.40) m/uL Hgb 9.8 L D (11.4-16.0) gm/dL Hct 31.3 L (34.0-46.0) % Lymphocytes # 0.6 L (1.0-4.8) k/uL Potassium (3.5-5.1) mmol/L Carbon Dioxide (22-30) mmol/L Glucose (74-99) mg/dL POC Glucose (mg/dL) 208 H 289 H (75-99) mg/dL Troponin I (0.000-0.034) ng/mL Thrombosis Risk Factor Assmnt - Choose All That Apply Any of the Below Risk Factors Present?: No Other Risk Factors: No Other congenital or acquired thrombophilia - If yes, enter type in comment: No Thrombosis Risk Factor Assessment Level: Very Low Risk Assessment and Plan Plan: #1 episodes of chest pain in the last 2-3 days, with minimal elevation in troponin level EKG showing normal sinus rhythm with right bundle branch block without acute ST or T-wave changes, continue to check troponin level cardiology consult was requested #2 anemia hemoglobin 7.4 on presentation was heme positive stools gastroenterology consultation was requested patient received red blood cell transfusion hemoglobin is up to 9.8 today, no evidence of active bleeding at this time #3 chest x-ray revealing congestive heart failure with interstitial pulmonary edema #4 elevated d-dimer CT angiogram of the chest was done and revealed no definite evidence of pulmonary embolism, exam was suboptimal. It also revealed evidence of bilateral pleural effusion right greater than left. #5 echocardiogram was ordered to rule out pericardial effusion #6 underlying history of coronary artery disease was previous history of coronary artery bypass graft surgery in the past #7 underlying history of hyperlipidemia At this time, patient is stable will monitor hemoglobin closely will monitor troponin levels Chest pain and shortness of breath has improved since admission Awaiting input from cardiology and pulmonary Awaiting echocardiogram results will follow closely
--- NOTE | 2016-05-31 12:19 | CONS ---
DATE OF CONSULTATION: Mrs. Braswell is an 80 year old female with known history of coronary artery disease, status post coronary artery bypass grafting done 7 to 8 years ago done in [place] who presented with symptoms of progressive dyspnea. She was noted to be anemic in the emergency room and received 1 unit of transfusion. She denies any change in the color or her stool or car knowledge of any acute bleeding. Sometimes she gets some blood when she wipes, but not on a regular basis. Her level of activity is limited. She has chronic dyspnea on exertion. She has been complaining of episode of chest discomfort lasting for about a minute, at times worse with deep breathing happening for the last few days. She has not been followed by cardiology for the last few years. She does not recall any recent cardiac work-up. She has no palpitation. She had a syncopal episode 2 weeks ago according to the son. She came in to open the door and then she had a syncopal episode lasting for less than a minute and she fractured her left shoulder. She has no arrhythmia. She has no clear PND, orthopnea. She has occasional peripheral edema. Her coronary risk factors are remarkable for hypertension, borderline diabetes and hyperlipidemia. Her medications at home include: 1. Potassium. 2. Protonix. 3. Metoprolol tartrate 12.5 mg daily. 4. Lasix 40 mg daily. 5. Iron. 6. Fenofibrate. 7. ( ) 60 mg daily. 8. Aricept 10 mg daily. 9. Plavix 75 mg daily. REVIEW OF SYSTEMS: RESPIRATORY SYSTEM: She had dyspnea on exertion. No recent wheezing. No history of obstructive lung disease. GI system: No documented history of peptic ulcer disease. No significant GI bleeding in the past. system: No dysuria or hematuria. Nervous system: No stroke or seizure. Past surgical history is remarkable for the coronary artery bypass grafting. PHYSICAL EXAMINATION: She is an 80-year-old female, alert, oriented, in no apparent distress. Blood pressure 140/70 with a heart rate in the 70s. HEAD: Normocephalic. EYES: Sclerae anicteric. NECK: Good upstroke. No bruit. No jugular venous distention. LUNGS: Clear to auscultation. HEART: Regular rate rhythm. S1, S2, no S3, with systolic murmur heard at the base 2/6. No diastolic murmur. No rub. ABDOMEN: Soft, nontender, positive bowel sounds. No organomegaly. EXTREMITIES: No edema. Decreased distal pulses. Lab data on presentation, her hemoglobin was 7.4, she received 1 unit of blood. It is 9.8 now. Her troponin is 0.034, 0.166 and 1.93. BUN and creatinine of 17 and 1.1. Potassium 3.4. Her chest x-ray revealed signs of heart failure, improving. Her chest CT angiogram revealed no evidence of pulmonary embolism with pleural effusion. Her EKG revealed sinus mechanism, rate of 89 right bundle branch block. No acute ST segment changes. IMPRESSION: 1. Acute anemia etiology unclear work-up in progress. The patient has heme positive stool. Source is not clear. 2. Non-ST segment elevation myocardial infarction. 3. Status post coronary artery bypass grafting. 4. History of hypertension. 5. Hyperlipidemia. RECOMMENDATIONS: From the cardiac standpoint, because of the bleeding, patient is not a candidate for anticoagulation or aggressive work-up. I will obtain echocardiogram and Doppler, increase the dose of her beta rosalba, add nitrate to her regimen as well statin. We will try to obtain the report from prior work-up in [place]. Depending on her progress, further recommendation made. Will follow her renal function closely. Depending on her heart rate, the dose of beta rosalba can be further adjusted. Thank you for this consult. We will follow with you.
[2016-05-31] MEDS: ATORVASTATIN 40 MG TAB PO SCH (12:33)
[2016-05-31 12:38] LABS: Glucose,Whole Blood 60 mg/dL (75-99)
[2016-05-31 13:01] LABS: Glucose,Whole Blood 63 mg/dL (75-99)
[2016-05-31 13:21] LABS: Glucose,Whole Blood 89 mg/dL (75-99)
[2016-05-31] MEDS: NITROGLYCERIN OINT 1 INCH/GM PACKET TOPICAL SCH ×2 (16:22→18:03)
[2016-05-31] MEDS: PIPERACILLIN-TAZOBACTAM 3.375 GM in DEXTROSE/WATER 1 50ML.BAG IVPB SCH (16:23)
[2016-05-31 17:29] LABS: Glucose,Whole Blood 104 mg/dL (75-99)
--- NOTE | 2016-05-31 18:56 | P.CNPUL ---
History of Present Illness Consult date: 05/31/16 Reason for consult: chest pain Chief complaint: Chest pain, suspected GI bleeding. History of present illness: 80-year-old female patient was presenting to the hospital because of pain across her lower chest that is somewhat pleuritic in nature it's been going on for the past 24 hours. Noted the patient to follow approximately 3 weeks ago and she sustained a fracture to her left humerus and this was being treated conservatively and she did not require any surgical intervention. Her pain started approximately 24 hours ago. No fever. No chills. Minimal amount of sputum production. She in the burst department, the patient was also found to be anemic with a hemoglobin of 7.4. She had a heme positive stool and she is suspected to have a GI bleeding. She was brought into the intensive care unit. A CT angios the chest was done that showed no evidence of any pulmonary embolism. Nevertheless, there is some infiltration in lung bases bilaterally along with some small pleural effusions typical of an underlying pneumonia. Hemodynamically she is stable. She hasn't shown any signs of GI bleeding further. The intensive care unit. She is known to have coronary artery disease along with hypertension and hyperlipidemia and diabetes mellitus. Her troponin came back positive and peaked at 1.9. EKG showing a right bundle branch block pattern with a normal sinus rhythm. The patient was also seen by cardiology. Review of Systems Further review of system was done and the positive findings are almost above the history of present illness Past Medical History Past Medical History: Coronary Artery Disease (CAD), Diabetes Mellitus, GERD/ Reflux, Hyperlipidemia, Hypertension, Liver Disease, Myocardial Infarction ([place]) , Osteoarthritis (OA) Additional Past Medical History / Comment(s): Coronary artery disease, hypertension, diabetes mellitus, hyperlipidemia, recent fall following an episode of syncope during which the patient sustained a left humeral fracture, episodes of dysphagia, chronic anemia, history of small bowel obstruction related to a ultimately turned out to be benign and was resected, chronic renal failure with stage III kidney disease, CHF with diastolic dysfunction with an ejection fraction of 55-60% based on previous echocardiogram along with aortic stenosis, previous carotid bypass surgery, osteoarthritis Last Myocardial Infarction Date:: 2009 History of Any Multi-Drug Resistant Organisms: None Reported Past Surgical History: Adenoidectomy, Cholecystectomy, Coronary Bypass/CABG, Heart Catheterization, Tonsillectomy, Tubal Ligation Additional Past Surgical History / Comment(s): 2010 Cabg in [place], 04/16/10 colonoscopy with benign polypectomy, liver surgery-unkn what type, cataract removal bilaterally. Past Anesthesia/Blood Transfusion Reactions: Postoperative Nausea & Vomiting ( PONV) Past Psychological History: Depression Additional Psychological History / Comment(s): Pt has history of depression but states that was in the past and no longer an issue for her. She is . She lives alone. She uses a walker to ambulate. She does not drive-her family take her places. Smoking Status: Never smoker Past Alcohol Use History: None Reported Past Drug Use History: None Reported - Past Family History Father Family Medical History: Diabetes Mellitus Additional Family Medical History / Comment(s): Pt believes her father was diabetic. He had toes amputated. He in his 90s Mother Family Medical History: Unable to Obtain Additional Family Medical History / Comment(s): Pt knows that her mother was unhealthy but does not know what health problems she might have had. she at 87yrs. Medications and Allergies Home Medications Medication Instructions Recorded Confirmed Type Donepezil [Aricept] 10 mg PO HS 02/15/15 05/30/16 History Fenofibrate [Lofibra] 160 mg PO 02/15/15 05/30/16 History Pantoprazole Sodium [Protonix] 40 mg PO [facility] 02/15/15 05/30/16 History Ascorbic Acid [Vitamin C] 500 mg PO HS 05/03/16 05/30/16 History Cetirizine HCl 10 mg PO DAILY 05/03/16 05/30/16 History Cholecalciferol [Vitamin D3] 5,000 unit PO 05/03/16 05/30/16 History Clopidogrel [Plavix] 75 mg PO DAILY 05/03/16 05/30/16 History Ferrous Sulfate [Feosol] 325 mg PO 05/03/16 05/30/16 History Furosemide [Lasix] 40 mg PO DAILY 05/03/16 05/30/16 History Metoprolol Tartrate [Lopressor] 12.5 mg PO HS 05/03/16 05/30/16 History Multivitamins, Thera [Multivitamin] 1 tab PO HS 05/03/16 05/30/16 History Potassium Chloride ER [K-Dur 10] 10 meq PO 05/03/16 05/30/16 History Sennosides [Senna] 8.6 mg PO HS PRN 05/03/16 05/30/16 History Sertraline [Zoloft] 100 mg PO HS 05/03/16 05/30/16 History Acetaminophen [Tylenol Arthritis] 1,300 mg PO BID PRN 05/30/16 05/30/16 History Nitroglycerin Sl Tabs [Nitrostat] 0.4 mg SUBLINGUAL Q5M PRN 05/30/16 05/30/16 History Allergies Allergy/AdvReac Type Severity Reaction Status Date / Time No Known Allergies Allergy Verified 05/30/16 20:01 Physical Exam Vitals: Vital Signs Temp Pulse Resp BP Pulse Ox 05/31/16 18:00 74 13 159/73 100 05/31/16 17:00 76 26 H 144/71 96 05/31/16 16:00 69 14 154/79 98 05/31/16 15:00 72 10 L 146/78 100 05/31/16 14:00 72 27 H 136/67 100 05/31/16 13:00 72 25 H 137/69 98 05/31/16 12:00 97.5 F L 76 25 H 150/76 100 05/31/16 11:00 72 19 135/74 98 05/31/16 10:00 72 30 H 114/55 99 05/31/16 09:00 79 31 H 130/67 96 05/31/16 08:49 99.6 F 75 22 130/67 97 05/31/16 08:00 99.6 F 82 23 140/74 100 05/31/16 07:00 88 20 137/75 100 05/31/16 06:47 98.7 F 87 18 118/67 05/31/16 06:17 98.7 F 89 16 163/74 99 05/31/16 06:07 99.5 F 92 17 137/74 100 05/31/16 06:00 93 22 130/76 100 05/31/16 05:00 96 13 140/71 100 05/31/16 04:00 99.6 F 100 16 137/76 100 05/31/16 03:45 99.6 F 101 H 18 137/73 05/31/16 03:00 114 H 20 113/60 82 L 05/31/16 02:00 112 H 29 H 142/65 93 L 05/31/16 01:58 22 05/31/16 01:30 107 H 32 H 164/65 93 L 05/31/16 01:11 98.7 F 108 H 22 119/66 92 L 05/31/16 01:00 84 23 153/57 92 L 05/31/16 00:41 99.1 F 85 20 153/65 92 L 05/31/16 00:31 98.6 F 82 16 152/65 93 L 05/31/16 00:30 83 23 141/63 93 L 05/31/16 00:00 98.7 F 85 13 148/61 95 05/30/16 23:34 94 L 05/30/16 23:33 91 93 L 05/30/16 22:45 98.8 F Intake and Output 05/31/16 05/31/16 05/31/16 06:59 14:59 22:59 Intake Total 430 1430 320 Output Total 450 430 585 Balance -20 1000 -265 Intake: IV 100 160 80 .9 KVO 100 160 80 Oral 20 960 240 Blood Product 310 310 Rc As-1 Unit 310 [id number] Rc As-1 Unit 0 310 [id number] Output: Urine 450 430 585 Other: Voiding Method Indwelling Catheter Indwelling Catheter Indwelling Catheter # Emeses 1 Weight 76 kg 76 kg 76 kg Patient Weight 06/01/16 06:59 Weight 76 kg Head exam was generally normal. There was no scleral icterus or corneal arcus. Mucous membranes were moist. Neck was supple and without jugular venous distension, thyromegaly, or carotid bruits. Carotids were easily palpable bilaterally. There was no adenopathy. Lung sounds are diminished bilaterally otherwise clear. There is some few crackles in lung bases bilaterally.Cardiac exam revealed the PMI to be normally situated and sized. The rhythm was regular and no extrasystoles were noted during several minutes of auscultation. The first and second heart sounds were normal and physiologic splitting of the second heart sound was noted. There were no murmurs, rubs, clicks, or gallops.Abdominal exam revealed normal bowel sounds. The abdomen was soft, non- tender, and without masses, organomegaly, or appreciable enlargement of the abdominal aorta.Examination of the extremities revealed easily palpable radial, femoral and pedal pulses. There was no cyanosis, clubbing or edema. Results - Laboratory Findings CBC and BMP: 05/31/16 09:58 05/31/16 02:38 PT/INR, D-dimer PT 11.8 sec (9.0-12.0) 05/30/16 20:00 INR 1.2 (<1.1) 05/30/16 20:00 D-Dimer 3.03 mg/L FEU (<0.60) H 05/30/16 20:00 Abnormal lab findings: Abnormal Labs 05/30/16 05/31/16 05/31/16 23:31 02:38 02:38 RBC Hgb Hct Lymphocytes # Potassium 3.4 L Carbon Dioxide 21 L Glucose 173 H POC Glucose (mg/dL) 203 H Troponin I 0.166 H* 05/31/16 05/31/16 05/31/16 07:47 08:41 09:58 RBC 3.35 L Hgb 9.8 L D Hct 31.3 L Lymphocytes # 0.6 L Potassium Carbon Dioxide Glucose POC Glucose (mg/dL) 208 H 289 H Troponin I 05/31/16 05/31/16 05/31/16 09:58 12:36 13:00 RBC Hgb Hct Lymphocytes # Potassium Carbon Dioxide Glucose POC Glucose (mg/dL) 60 L 63 L Troponin I 1.930 H* 05/31/16 17:27 RBC Hgb Hct Lymphocytes # Potassium Carbon Dioxide Glucose POC Glucose (mg/dL) 104 H Troponin I - Diagnostic Findings Chest x-ray: image reviewed CT scan - chest: image reviewed Assessment and Plan Plan: Assessment 1 acute bilateral lower chest pain, pleuritic in nature with development of bibasilar pulmonary infiltrates and small effusions with no evidence of any pulmonary embolism based on the CAT scan findings. Suspect bilateral pneumonia knowing that his infiltrates and effusions are on a new onset there were not present approximately 3 weeks ago. 2 troponin leak, with a right bundle branch block pattern. Patient is awaiting a cardiac evaluation by Dr. Garcia. 3 coronary artery disease appears bypass surgery 4 aortic stenosis 5 CHF with diastolic dysfunction and ejection fraction of 55-60% 6 hypertension 7 diabetes mellitus type 2 8 hyperlipidemia 9 recent syncope with a fall and fracture of the left humerus 10 anemia with suspected GI bleeding. The patient got was used with 2 units packed RBCs Plan Covered the patient wiht IV Zosyn. Watch for any signs of GI bleeding. Cardiology ventilation regarding the troponin leak. GI consultation. We'll continue to follow.
[2016-05-31] MEDS: MULTIVITAMINS, THERA 1 EACH TAB PO SCH (20:21)
[2016-05-31] MEDS: ASCORBIC ACID 500 MG TAB PO SCH (20:21)
[2016-05-31] MEDS: SERTRALINE 100 MG TAB PO SCH (20:21)
[2016-05-31] MEDS: CHOLECALCIFEROL 1,000 UNIT TAB PO SCH (20:21)
[2016-05-31] MEDS: FENOFIBRATE 160 MG TAB PO SCH (20:21)
[2016-05-31] MEDS: DONEPEZIL 10 MG TAB PO SCH (20:21)
[2016-05-31] MEDS: METOPROLOL TARTRATE 12.5 MG TAB PO SCH (20:22)
[2016-05-31] MEDS: POTASSIUM CHLORIDE ER 10 MEQ TAB.ER.PRT PO SCH (20:22)
[2016-05-31 20:29] LABS: Glucose,Whole Blood 161 mg/dL (75-99)
[2016-05-31] MEDS ORDERED: METOPROLOL TARTRATE 12.5 MG TAB PO SCH (21:00)
[2016-06-01] MEDS: HYDROmorphone 1 MG/ML 1 ML SYRINGE IVP PRN ×2 (01:33→19:47)
[2016-06-01] MEDS: PIPERACILLIN-TAZOBACTAM 3.375 GM in DEXTROSE/WATER 1 50ML.BAG IVPB SCH ×3 (01:36→15:15)
[2016-06-01] MEDS: NITROGLYCERIN OINT 1 INCH/GM PACKET TOPICAL SCH ×3 (01:36→15:15)
[2016-06-01 01:49] LABS: Glucose,Whole Blood 115 mg/dL (75-99)
[2016-06-01 04:21] LABS: Glucose,Whole Blood 240 mg/dL (75-99)
[2016-06-01 05:31] LABS: Basophils % (A) 0 %; CH 28.4; CHCM 31.2; Eosinophils # (A) 0.3 k/uL (0-0.7); Eosinophils % (A) 5 %; HCT 33.3 % (34.0-46.0); HDW 4.15; HGB 10.5 gm/dL (11.4-16.0); Hypochromasia Marked; Luc # (Auto) 0.27; Luc % (Auto) 4; Lymphocytes # (A) 0.8 k/uL (1.0-4.8); Lymphocytes % (A) 12 %; MCH 28.8 pg (25.0-35.0); MCHC 31.5 g/dL (31.0-37.0); MCV 91.6 fL (80.0-100.0); Mean Platelet Volume 6.7; Monocytes # (A) 0.7 k/uL (0-1.0); Monocytes % (A) 10 %; Neutrophils # (A) 4.7 k/uL (1.3-7.7); Neutrophils % (A) 68 %; Poikilocytosis Moderate; RBC 3.64 m/uL (3.80-5.40); RDW 14.5 % (11.5-15.5); WBC 6.8 k/uL (3.8-10.6); WBC (Perox) 7.08
[2016-06-01 06:16] LABS: Calcium 8.6 mg/dL (8.4-10.2); Magnesium 2.2 mg/dL (1.6-2.3); Phosphorous 3.9 mg/dL (2.5-4.5); Potassium 4.2 mmol/L (3.5-5.1)
[2016-06-01 07:26] LABS: Glucose,Whole Blood 143 mg/dL (75-99)
--- NOTE | 2016-06-01 08:40 | XR ---
EXAMINATION TYPE: XR chest 1V DATE OF EXAM: 06/01/2016 6:51 AM COMPARISON: 05/31/2016 INDICATION: Short of breath TECHNIQUE: Single frontal view of the chest is obtained. FINDINGS: The heart size is enlarged. The pulmonary vasculature is normal. There is interval development of a density at the right base. Correlate for developing pneumonia. IMPRESSION: 1. Clinical correlation recommended for developing pneumonia right middle lobe. 2. Increasing cardiomegaly.
[2016-06-01] MEDS: INSULIN LISPRO (humaLOG) 300 UNIT/3 ML VIAL SQ SCH ×4 (09:01→22:13)
[2016-06-01] MEDS: FUROSEMIDE 40 MG TAB PO SCH (09:04)
[2016-06-01] MEDS: METOPROLOL TARTRATE 12.5 MG TAB PO SCH ×2 (09:04→20:34)
[2016-06-01] MEDS: PANTOPRAZOLE 40 MG/10 ML VIAL IV SCH (09:04)
[2016-06-01] MEDS: LORATADINE 10 MG TAB PO SCH (09:05)
[2016-06-01] MEDS: ATORVASTATIN 40 MG TAB PO SCH (09:05)
[2016-06-01] MEDS ORDERED: PROPOFOL 10 MG/ML 20 ML VIAL IV ONE (10:02)
[2016-06-01] MEDS ORDERED: LIDOCAINE 1% INJ 10MG/ML (20 ML MDV) ONE (10:02)
[2016-06-01] MEDS ORDERED: ONDANSETRON 4 MG/2 ML VIAL ONE (10:02)
[2016-06-01] MEDS ORDERED: IV FLUID CONTINUATION 300 ML IV ONE (10:06)
--- NOTE | 2016-06-01 10:23 | ECHOF ---
Referral Reason:cad MEASUREMENTS -------- HEIGHT: 154.9 cm WEIGHT: 80.3 kg BP: 156/78 RVIDd: 3.5 cm (< 3.3) IVSd: 1.5 cm (0.6 - 1.1) LVIDd: 4.5 cm (3.9 - 5.3) LVPWd: 1.2 cm (0.6 - 1.1) IVSs: 2.0 cm LVIDs: 3.5 cm LVPWs: 1.9 cm LA Diam: 3.7 cm (2.7 - 3.8) LAESV Index (A-L): 23.04 ml/m Ao Diam: 2.9 cm (2.0 - 3.7) LA Diam: 3.4 cm (2.7 - 3.8) MV EXCURSION: 16.312 mm (> 18.000) MV EF SLOPE: 31 mm/s (70 - 150) EPSS: 1.6 cm MV E Fei: 1.71 m/s MV DecT: 290 ms MV A Fei: 1.66 m/s MV E/A Ratio: 1.03 AV maxP.52 mmHg AV meanP.09 mmHg RAP: 5.00 mmHg RVSP: 44.76 mmHg FINDINGS -------- Sinus rhythm. This was a technically adequate study. The left ventricular size is normal. There is mild concentric left ventricular hypertrophy. Overall left ventricular systolic function is normal with, an EF between 55 - 60 %. The right ventricle is mildly enlarged. Normal LA size by volume 22+/-6 ml/m2. The right atrium is normal in size. Aortic valve is trileaflet and is moderately thickened. There is moderate aortic stenosis present. Peak/mean gradient across the Aortic Valve is 41.52mmHg / 25.09mmHg. The mitral valve leaflets are mildly thickened. Mild mitral annular calcification present. Moderate mitral regurgitation is present. The peak and mean MV gradients are 19.23mmHg 7.81mmHg as measured by doppler. Mild tricuspid regurgitation present. There is mild pulmonary hypertension. The right ventricular systolic pressure, as measured by Doppler, is 44.76mmHg. The pulmonic valve was not well visualized. The aortic root size is normal. Normal inferior vena cava with normal inspiratory collapse consistent with estimated right atrial pressure of 5 mmHg. There is no pericardial effusion. CONCLUSIONS -------- 1. Sinus rhythm. 2. There is moderate aortic stenosis present. 3. Peak/mean gradient across the Aortic Valve is 41.52mmHg / 25.09mmHg. 4. The mitral valve leaflets are mildly thickened. 5. Mild mitral annular calcification present. 6. Moderate mitral regurgitation is present. 7. The peak and mean MV gradients are 19.23mmHg 7.81mmHg as measured by doppler. 8. Mild tricuspid regurgitation present. 9. There is mild pulmonary hypertension. 10. The right ventricular systolic pressure, as measured by Doppler, is 44.76mmHg. 11. The pulmonic valve was not well visualized. 12. This was a technically adequate study. 13. The aortic root size is normal. 14. Normal inferior vena cava with normal inspiratory collapse consistent with estimated right atrial pressure of 5 mmHg. 15. There is no pericardial effusion. 16. The left ventricular size is normal. 17. There is mild concentric left ventricular hypertrophy. 18. Overall left ventricular systolic function is normal with, an EF between 55 - 60 %. 19. The right ventricle is mildly enlarged. 20. Normal LA size by volume 22+/-6 ml/m2. 21. The right atrium is normal in size. 22. Aortic valve is trileaflet and is moderately thickened. GENERAL INTERN: Malathi García RDCS
--- NOTE | 2016-06-01 10:43 | P.PCN ---
Date of Procedure: 06/01/16 Procedure(s) Performed: BRIEF HISTORY: Patient is a 80-year-old, pleasant, white female, scheduled for an upper endoscopy as a part of evaluation of recent episode of coffee-ground emesis and anemia with a hemoglobin of 67.5 requiring 2 units of PRBC transfusion. PROCEDURE PERFORMED: Esophagogastroduodenoscopy. PREOPERATIVE DIAGNOSIS: Coffee-ground emesis and anemia. IV sedation per anesthesia. PROCEDURE: After informed consent was obtained, the patient was brought into the endoscopy unit. IV conscious sedation was administered by Anesthesia under continuous monitoring. Initially the Olympus GIF-140 video endoscope was inserted into the mouth. Esophagus intubated without any difficulty. It was gradually advanced into the stomach and duodenum and carefully examined. The bulb and the second part of the duodenum appeared normal. The scope at this time was withdrawn to the stomach, adequately insufflated with air, and upon careful examination, mucosa of the antrum, had mild diffuse gastritis. The body , cardia and the fundus appeared normal. The scope was then withdrawn into the esophagus. The GE junction was located at 41 cm from the incisors. The esophagus appeared normal. There were no erosions or ulcerations seen and the patient tolerated the procedure well. IMPRESSION: 1. Mild diffuse gastritis. 2. No evidence of esophagitis or peptic ulcer disease. 3. No active bleeding. RECOMMENDATIONS: The findings of this examination were discussed with the patient. She can be transferred to the floor. She will be started on a regular diet..
[2016-06-01 11:41] LABS: Glucose,Whole Blood 127 mg/dL (75-99)
--- NOTE | 2016-06-01 16:05 | P.PN ---
Subjective Principal diagnosis: Acute anemia and acute non-ST segment elevation myocardial infarction. 1-year-old female patient was presenting to the hospital because of pain across her lower chest that is somewhat pleuritic in nature it's been going on for the past 24 hours. Noted the patient to follow approximately 3 weeks ago and she sustained a fracture to her left humerus and this was being treated conservatively and she did not require any surgical intervention. Her pain started approximately 24 hours ago. No fever. No chills. Minimal amount of sputum production. She in the burst department, the patient was also found to be anemic with a hemoglobin of 7.4. She had a heme positive stool and she is suspected to have a GI bleeding. She was brought into the intensive care unit. A CT angios the chest was done that showed no evidence of any pulmonary embolism. Nevertheless, there is some infiltration in lung bases bilaterally along with some small pleural effusions typical of an underlying pneumonia. Hemodynamically she is stable. She hasn't shown any signs of GI bleeding further. The intensive care unit. She is known to have coronary artery disease along with hypertension and hyperlipidemia and diabetes mellitus. Her troponin came back positive and peaked at 1.9. EKG showing a right bundle branch block pattern with a normal sinus rhythm. The patient was also seen by cardiology. Patient was seen today on 06/01/2016, she underwent EGD and she was found to have mild diffuse gastritis, no evidence of peptic ulcer disease and no evidence of active bleeding. Patient had initial presentation of coffee-ground emesis and anemia with low hemoglobin requiring 2 units of packed RBC transfusion. Chest x-ray showed minimal density in the right lower lobe suggestive of possible pneumonia or right lower lobe atelectasis. There is also prominence of the pulmonary vasculature suggestive of mild interstitial edema. Labs showed no evidence of leukocytosis her electrolytes and basic metabolic profile are normal. Creatinine is up to 1.20 today Objective - Vital Signs Vital signs: Vital Signs Temp 98.8 F 06/01/16 09:00 Pulse 71 06/01/16 09:00 Resp 20 06/01/16 10:00 BP 143/65 06/01/16 10:00 Pulse Ox 95 06/01/16 11:15 Intake & Output 05/31/16 06/01/16 06/01/16 18:59 06:59 18:59 Intake Total 1750 240 430 Output Total 1015 625 735 Balance 735 -385 -305 Weight 76 kg 80.6 kg Intake: IV 240 240 140 .9 KVO 240 240 40 Intake, IV Titration 50 Amount Piperacillin-Tazobactam 3 50 .375 gm In Dextrose/Water 1 50ml.bag @ 12.5 mls/hr IVPB Q8HR [facility] Rx#: [id number] Oral 1200 240 Blood Product 310 Rc As-1 Unit 310 [id number] Output: Urine 101 625 735 Uretheral (Pham) 600 Other: Voiding Method Indwelling Catheter Indwelling Catheter Indwelling Catheter - Exam Head exam was generally normal. There was no scleral icterus or corneal arcus. Mucous membranes were moist. Neck was supple and without jugular venous distension, thyromegaly, or carotid bruits. Carotids were easily palpable bilaterally. There was no adenopathy. Lung sounds are diminished bilaterally otherwise clear. There is some few crackles in lung bases bilaterally.Cardiac exam revealed the PMI to be normally situated and sized. The rhythm was regular and no extrasystoles were noted during several minutes of auscultation. The first and second heart sounds were normal and physiologic splitting of the second heart sound was noted. There were no murmurs, rubs, clicks, or gallops.Abdominal exam revealed normal bowel sounds. The abdomen was soft, non- tender, and without masses, organomegaly, or appreciable enlargement of the abdominal aorta.Examination of the extremities revealed easily palpable radial, femoral and pedal pulses. There was no cyanosis, clubbing or edema. - Labs CBC & Chem 7: 06/01/16 05:03 06/01/16 05:03 Labs: Abnormal Lab Results - Last 24 Hours (Table) 05/31/16 05/31/16 06/01/16 Range/Units 17:27 20:28 01:47 RBC (3.80-5.40) m/uL Hgb (11.4-16.0) gm/dL Hct (34.0-46.0) % Lymphocytes # (1.0-4.8) k/uL Creatinine (0.52-1.04) mg/dL Glucose (74-99) mg/dL POC Glucose (mg/dL) 104 H 161 H 115 H (75-99) mg/dL 06/01/16 06/01/16 06/01/16 Range/Units 05:03 05:03 07:25 RBC 3.64 L (3.80-5.40) m/uL Hgb 10.5 L (11.4-16.0) gm/dL Hct 33.3 L (34.0-46.0) % Lymphocytes # 0.8 L (1.0-4.8) k/uL Creatinine 1.20 H (0.52-1.04) mg/dL Glucose 130 H (74-99) mg/dL POC Glucose (mg/dL) 143 H (75-99) mg/dL 06/01/16 Range/Units 11:39 RBC (3.80-5.40) m/uL Hgb (11.4-16.0) gm/dL Hct (34.0-46.0) % Lymphocytes # (1.0-4.8) k/uL Creatinine (0.52-1.04) mg/dL Glucose (74-99) mg/dL POC Glucose (mg/dL) 127 H (75-99) mg/dL Assessment and Plan Plan: 1 acute bilateral lower chest pain, pleuritic in nature with development of bibasilar pulmonary infiltrates and small effusions with no evidence of any pulmonary embolism based on the CAT scan findings. Suspect bilateral pneumonia knowing that his infiltrates and effusions are on a new onset there were not present approximately 3 weeks ago. 2 troponin leak, with a right bundle branch block pattern. Patient is awaiting a cardiac evaluation by Dr. Garcia. 3 coronary artery disease appears bypass surgery 4 aortic stenosis 5 CHF with diastolic dysfunction and ejection fraction of 55-60% 6 hypertension 7 diabetes mellitus type 2 8 hyperlipidemia 9 recent syncope with a fall and fracture of the left humerus 10 anemia with suspected GI bleeding. The patient got was used with 2 units packed RBCs 11 acute non-ST segment elevation myocardial infarction, suspect some component of diastolic dysfunction and interstitial edema. 12 erosive gastritis but no evidence of peptic ulcer disease being addressed by GI on the case. Patient is status post EGD. Recommendation: Continue present treatment plan, antibiotics, diuretics, and Protonix. We'll continue to follow. Follow-up chest x-ray in a.m. Time with Patient: Less than 30
[2016-06-01 16:32] LABS: Glucose,Whole Blood 134 mg/dL (75-99)
--- NOTE | 2016-06-01 16:36 | CDI ---
In responding to this query, please exercise your independent professional judgment. The [facility] Coding Staff and Clinical Documentation Specialists appreciate your assistance in clarifying documentation, maintaining compliance with coding guidelines, accurately documenting patients condition and capturing severity of illness. The fact that a question is asked does not imply that any particular answer is desired or expected. Communication forms are a method of clarifying documentation and are not made part of the Legal Health Record. Thank you in advance for your clarification. Last Revision, February 2015 Louis Goetz [address] [place] [address] Documentation Clarification Form Date: 06/01/2016 4:30:00 PM From: Kb Shaw, RN, BSN, CDI Admit Date: 05/30/2016 10:28:00 PM Patient Name: Dulce Maria Braswell Visit Number: [id number] Dr. Dana Matt: A diagnosis of anemia lacks specificity to accurately reflect your patients severity of condition and clarification is needed. Patient history/risk factors: 80 yo female presents with c/o chest pain, mild SOB and coffee ground emesis. Clinical Indicators: Hemoglobin: 7.4 Hematocrit: 24.2 FOB: + Treatment: 2U PRBC's, daily CBC, GI consult, cardiology consult In order to capture the severity of condition, please clarify the type of anemia and etiology if known: Acute blood loss anemia Acute on chronic blood loss anemia Chronic blood loss anemia Iron deficiency anemia Hemolytic anemia Drug induced anemia Anemia due to malignancy Nutritional anemia Anemia of chronic kidney disease Unable to determine Other, please specify Please document in your progress notes and discharge summary in order to capture severity of illness and risk of mortality. Include clinical findings that support your diagnosis. FYI: Press F11 to launch patient chart. Place X here if this finding has no clinical significance, is not applicable or if you are not able to provide any additional documentation. CHRISTINA
--- NOTE | 2016-06-01 16:44 | CDI ---
In responding to this query, please exercise your independent professional judgment. The [facility] Coding Staff and Clinical Documentation Specialists appreciate your assistance in clarifying documentation, maintaining compliance with coding guidelines, accurately documenting patients condition and capturing severity of illness. The fact that a question is asked does not imply that any particular answer is desired or expected. Communication forms are a method of clarifying documentation and are not made part of the Legal Health Record. Thank you in advance for your clarification. Last Revision, June 2015 Louis Goetz [address] [place] [address] Documentation Clarification Form Date: 06/01/2016 4:36:00 PM From: Kb Shaw, RN, BSN, CDI Admit Date: 05/30/2016 10:28:00 PM Patient Name: Dulce Maria Braswell Visit Number: [id number] Dr. Dana Matt: CHF is documented in the ED impressions, H&P and GI consult . Per the GI consult "CHF is exacerbated". History/Risk Factors: 80 yo female with a history of CAD, DM, GERD, hyperlipidemia, HTN and CABG presents with c/o chest pain, mild SOB and an episode of coffee ground emesis. Clinical Indicators: VS/Pulse OX: 185/107, 89, 26, 99.3, 91% RA BNP: not done Echocardiogram Results: LVEF 55-60% Chest X Ray (on admission): correlate for CHF with mild interstitial pulmonary edema, trace pleural effusions CXR on 05/31: improving CHF with interstitial pulmonary edema Treatment: Lasix 20mg IVP x1, Lasix 40mg PO QD, Lopressor Consults: Cardiology consult In your professional opinion, can you please clarify the acuity and type of CHF if known? Acute Chronic Acute on Chronic AND Systolic Diastolic Systolic and Diastolic Unable to determine Other, please specify If known, please specify if Heart Failure is due to: Hypertension Rheumatic Fever If the diagnosis of CHF has been ruled out, please document accordingly. Please document in your progress notes and discharge summary in order to capture severity of illness and risk of mortality. Include clinical findings that support your diagnosis. FYI: Press F11 to launch patient chart. Place X here if this finding has no clinical significance, is not applicable or if you are not able to provide any additional documentation. MTDD
--- NOTE | 2016-06-01 16:50 | CDI ---
In responding to this query, please exercise your independent professional judgment. The [facility] Coding Staff and Clinical Documentation Specialists appreciate your assistance in clarifying documentation, maintaining compliance with coding guidelines, accurately documenting patients condition and capturing severity of illness. The fact that a question is asked does not imply that any particular answer is desired or expected. Communication forms are a method of clarifying documentation and are not made part of the Legal Health Record. Thank you in advance for your clarification. Last Revision, June 2015 Louis Goetz [address] [place] [address] Documentation Clarification Form Date: 06/01/2016 4:44:00 PM From: Kb Shaw, RN, BSN, CDI Admit Date: 05/30/2016 10:28:00 PM Patient Name: Dulce Maria Braswell Visit Number: [id number] Dr. Dana Matt: "Anemia with suspected GI bleed" is documented in the pulmonary consult. Patient history/risk factors: 80 yo female with history of CAD, DM, GERD presents with chest pain, mild SOB and coffee ground emesis. Clinical Indicators: EGD/colonoscopy performed and findings: Labs: H&H on admission: 7.4, Hct: 24.2, +FOB Vital Signs: 185/107, 89, 26, 99.3, 91% RA EGD results: mild diffuse gastritis, no evidence of esophagitis or PUD, no active bleeding Medication: Protonix Consults: GI In your professional opinion, can you please clarify the underlying cause of GI bleed if known? Mild diffuse gastritis Suspected GIB ruled out Other, please specify Unable to determine Please document in your progress notes and discharge summary in order to capture severity of illness and risk of mortality. Include clinical findings that support your diagnosis. FYI: Press F11 to launch patient chart Place X here if this finding has no clinical significance, is not applicable or if you are not able to provide any additional documentation. MTDD
--- NOTE | 2016-06-01 17:08 | P.PN ---
Subjective Patient is doing fairly well today. She just returned from her EGD. Does not have any specific concerns or complaints. Objective - Vital Signs Vital signs: Vital Signs Temp 98.6 F 06/01/16 15:00 Pulse 64 06/01/16 16:00 Resp 16 06/01/16 16:00 BP 123/60 06/01/16 15:00 Pulse Ox 91 L 06/01/16 15:00 Intake & Output 05/31/16 06/01/16 06/01/16 18:59 06:59 18:59 Intake Total 1750 240 430 Output Total 6714 505 2233 Balance 565 -646 -724 Weight 76 kg 80.6 kg Intake: IV 240 240 140 .9 KVO 240 240 40 Intake, IV Titration 50 Amount Piperacillin-Tazobactam 3 50 .375 gm In Dextrose/Water 1 50ml.bag @ 12.5 mls/hr IVPB Q8HR [facility] Rx#: [id number] Oral 1200 240 Blood Product 310 Rc As-1 Unit 310 [id number] Output: Urine 4181 524 3509 Uretheral (Pham) 600 Other: Voiding Method Indwelling Catheter Indwelling Catheter Indwelling Catheter - Exam General: The patient is awake and alert, in no distress Eye: there is normal conjunctiva bilaterally. Neck: The neck is supple, there is no JVD. Cardiovascular: Normal S1-S2, no S3-S4, no murmurs. Respiratory: Lungs clear to auscultation bilaterally Gastrointestinal: Abdomen is soft, nontender Musculoskeletal: There is no pedal edema. Neurological:. Speech is normal. Skin: Skin is warm and dry - Labs CBC & Chem 7: 06/01/16 05:03 06/01/16 05:03 Labs: Abnormal Lab Results - Last 24 Hours (Table) 05/31/16 05/31/16 06/01/16 Range/Units 17:27 20:28 01:47 RBC (3.80-5.40) m/uL Hgb (11.4-16.0) gm/dL Hct (34.0-46.0) % Lymphocytes # (1.0-4.8) k/uL Creatinine (0.52-1.04) mg/dL Glucose (74-99) mg/dL POC Glucose (mg/dL) 104 H 161 H 115 H (75-99) mg/dL 06/01/16 06/01/16 06/01/16 Range/Units 05:03 05:03 07:25 RBC 3.64 L (3.80-5.40) m/uL Hgb 10.5 L (11.4-16.0) gm/dL Hct 33.3 L (34.0-46.0) % Lymphocytes # 0.8 L (1.0-4.8) k/uL Creatinine 1.20 H (0.52-1.04) mg/dL Glucose 130 H (74-99) mg/dL POC Glucose (mg/dL) 143 H (75-99) mg/dL 06/01/16 06/01/16 Range/Units 11:39 16:31 RBC (3.80-5.40) m/uL Hgb (11.4-16.0) gm/dL Hct (34.0-46.0) % Lymphocytes # (1.0-4.8) k/uL Creatinine (0.52-1.04) mg/dL Glucose (74-99) mg/dL POC Glucose (mg/dL) 127 H 134 H (75-99) mg/dL Assessment and Plan Plan: #1 non-ST elevation [place] on presentation: Seen and evaluated by cardiology. Was not a candidate for anticoagulation given GI bleed on presentation. Managed medically. Echocardiogram showed preserved EF of 55-60%. No significant valvular abnormalities. No significant wall motion abnormality reported. Appreciate cardiology recommendations. #2 chronic blood loss anemia: Status post 2 units of blood transfusion during this admission. EGD showed mild gastritis with no evidence of ulcers or active bleeding. Continue Protonix daily #3 underlying bibasilar pneumonia: Seen and evaluated by pulmonology. Currently on IV Zosyn. Improving clinically. #4 mixed hyperlipidemia: Started on Lipitor. I would check fasting lipid profile. #5 Essential hypertension: Blood pressure not well controlled. Add lisinopril 5 mg daily and continue to monitor closely. #6 coronary artery disease with history of CABG years ago Today, I reviewed her medication list and lab work results. Continue current regimen. Appreciate rehab consultant's recommendations. PT/OT evaluation. Encouraged ambulation. Advance diet as tolerated. Repeat lab work in the morning.
[2016-06-01] MEDS: LISINOPRIL 5 MG TAB PO SCH (18:22)
[2016-06-01] MEDS: MULTIVITAMINS, THERA 1 EACH TAB PO SCH (20:34)
[2016-06-01] MEDS: ASCORBIC ACID 500 MG TAB PO SCH (20:34)
[2016-06-01] MEDS: FENOFIBRATE 160 MG TAB PO SCH (20:34)
[2016-06-01] MEDS: DONEPEZIL 10 MG TAB PO SCH (20:34)
[2016-06-01] MEDS: CHOLECALCIFEROL 1,000 UNIT TAB PO SCH (20:35)
[2016-06-01] MEDS: POTASSIUM CHLORIDE ER 10 MEQ TAB.ER.PRT PO SCH (20:35)
[2016-06-01] MEDS: SERTRALINE 100 MG TAB PO SCH (20:35)
--- NOTE | 2016-06-01 20:46 | PN ---
This patient was admitted with anemia and shortness of breath. Patient had a marginally elevated troponin. Patient has a prior history of coronary artery bypass surgery. Patient's echocardiogram reveals overall normal left ventricular systolic function with mild to moderate degree of aortic stenosis and mild degree of mitral stenosis and calcified mitral annulus. Patient's initial BNP level was 3000. Chest x-ray is suggestive of congestive cardiac failure. Patient's electrolytes are normal. This patient's upper GI endoscopy showed evidence of gastritis. Patient's hemoglobin is now 10.5. Patient has microcytic anemia. Further evaluation of [id number] anemia may be considered. Patient's creatinine is 1.30. We will give patient Lasix 40 mg IV q.8 hourly, 2 doses. Her chest x-ray is suggestive of congestive cardiac failure.
[2016-06-01 21:08] LABS: Glucose,Whole Blood 203 mg/dL (75-99)
[2016-06-02] MEDS: PIPERACILLIN-TAZOBACTAM 3.375 GM in DEXTROSE/WATER 1 50ML.BAG IVPB SCH ×4 (00:53→23:05)
[2016-06-02] MEDS: NITROGLYCERIN OINT 1 INCH/GM PACKET TOPICAL SCH ×4 (01:00→23:05)
[2016-06-02] MEDS: ONDANSETRON 4 MG/2 ML VIAL IVP PRN (04:37)
[2016-06-02 07:57] LABS: Glucose,Whole Blood 144 mg/dL (75-99)
[2016-06-02] MEDS: PANTOPRAZOLE 40 MG/10 ML VIAL IV SCH (08:05)
[2016-06-02] MEDS: METOPROLOL TARTRATE 12.5 MG TAB PO SCH ×2 (08:05→20:17)
[2016-06-02] MEDS: LORATADINE 10 MG TAB PO SCH (08:05)
[2016-06-02] MEDS: INSULIN LISPRO (humaLOG) 300 UNIT/3 ML VIAL SQ SCH ×4 (08:06→21:49)
[2016-06-02] MEDS: ATORVASTATIN 40 MG TAB PO SCH (08:06)
[2016-06-02] MEDS: LISINOPRIL 5 MG TAB PO SCH (08:06)
[2016-06-02] MEDS: FUROSEMIDE 40 MG TAB PO SCH (08:06)
[2016-06-02 08:13] LABS: Basophils % (A) 0 %; CH 28.1; CHCM 30.6; Eosinophils # (A) 0.2 k/uL (0-0.7); Eosinophils % (A) 5 %; HCT 31.4 % (34.0-46.0); HDW 3.98; HGB 9.8 gm/dL (11.4-16.0); Hypochromasia Marked; Luc % (Auto) 4; Lymphocytes # (A) 0.8 k/uL (1.0-4.8); Lymphocytes % (A) 15 %; MCH 28.9 pg (25.0-35.0); MCHC 31.3 g/dL (31.0-37.0); MCV 92.5 fL (80.0-100.0); Mean Platelet Volume 6.8; Monocytes # (A) 0.4 k/uL (0-1.0); Monocytes % (A) 9 %; Neutrophils # (A) 3.4 k/uL (1.3-7.7); Neutrophils % (A) 67 %; Poikilocytosis Slight; RBC 3.39 m/uL (3.80-5.40); WBC 5.1 k/uL (3.8-10.6); WBC (Perox) 5.41
--- NOTE | 2016-06-02 08:13 | XR ---
EXAMINATION TYPE: XR chest 1V portable DATE OF EXAM: 06/02/2016 8:07 AM Comparison: 06/01/2016 Clinical History: 80-year-old female with CHF Findings: Median sternotomy wires are present with post-CABG clips in the mediastinum. The heart is mildly enla rged. Diffuse perihilar and interstitial densities and some patchy right basilar density, all relativ mariella similar prior exam. Trace fluid thickening the minor fissure. There may be trace left pleural eff usion as well. Partially visualized proximal left humeral fracture. Impression: Overall stable exam suggesting CHF with mild interstitial pulmonary edema.
[2016-06-02 08:46] LABS: Magnesium 1.8 mg/dL (1.6-2.3); Phosphorous 3.1 mg/dL (2.5-4.5)
--- NOTE | 2016-06-02 08:59 | P.PN ---
Subjective Principal diagnosis: Upper GI bleed coffee-ground emesis 80-year-old female status post EGD yesterday for coffee ground emesis evaluation with findings of mild diffuse gastritis. Tolerating small amounts of diet. Mild epigastric discomfort. Reports back pain today. Afebrile. Hemoglobin 9.8. Objective - Vital Signs Vital signs: Vital Signs Temp 97.4 F L 06/02/16 07:00 Pulse 67 06/02/16 07:00 Resp 18 06/02/16 07:00 BP 141/67 06/02/16 07:00 Pulse Ox 97 06/02/16 07:00 Intake & Output 06/01/16 06/02/16 06/02/16 18:59 06:59 18:59 Intake Total 430 250 Output Total 1335 Balance -905 250 Intake: IV 140 .9 KVO 40 Intake, IV Titration 50 Amount Piperacillin-Tazobactam 3 50 .375 gm In Dextrose/Water 1 50ml.bag @ 12.5 mls/hr IVPB Q8HR [facility] Rx#: [id number] Oral 240 250 Output: Urine 1335 Uretheral (Pham) 600 Other: Voiding Method Indwelling Catheter Bedside Commode # Voids 2 # Bowel Movements 1 - Exam General appearance: The patient is alert, oriented, in no acute distress. HET: Head is normocephalic and atraumatic. Pupils are equal and reactive. Oropharynx is clear without lesions. Neck: Supple without lymphadenopathy. Trachea midline. Heart: S1 S2. Regular rate and rhythm. Lungs: No crackles or wheezes are heard. Abdomen: Soft, mild midepigastric tenderness, nondistended with bowel sounds. No peritoneal signs. No palpable organomegaly or masses. Extremities: Normal skin color and turgor. No cyanosis, rash, ulceration, clubbing, or edema. Radial and pedal pulses are 2/4 bilaterally. Neurological: No focal deficits. Strength and sensation are grossly intact. - Labs CBC & Chem 7: 06/02/16 07:15 06/01/16 05:03 Labs: Abnormal Lab Results - Last 24 Hours (Table) 06/01/16 06/01/16 06/01/16 Range/Units 11:39 16:31 20:57 RBC (3.80-5.40) m/uL Hgb (11.4-16.0) gm/dL Hct (34.0-46.0) % Lymphocytes # (1.0-4.8) k/uL POC Glucose (mg/dL) 127 H 134 H 203 H (75-99) mg/dL Triglycerides (<150) mg/dL HDL Cholesterol (40-60) mg/dL 06/02/16 06/02/16 06/02/16 Range/Units 07:05 07:15 07:15 RBC 3.39 L (3.80-5.40) m/uL Hgb 9.8 L (11.4-16.0) gm/dL Hct 31.4 L (34.0-46.0) % Lymphocytes # 0.8 L (1.0-4.8) k/uL POC Glucose (mg/dL) 144 H (75-99) mg/dL Triglycerides 219 H (<150) mg/dL HDL Cholesterol 28 L (40-60) mg/dL Assessment and Plan (1) Coffee ground emesis Status: Acute (2) Gastritis Status: Acute (3) Upper GI bleeding Status: Acute (4) Acute blood loss anemia Status: Acute Plan: 1. Symptomatic supportive measures. Continue with Protonix 40 mg daily. 2. Monitor CBC. Continue to follow. Assessment and plan of care discussed with Dr. Santiago.
[2016-06-02 12:31] LABS: Glucose,Whole Blood 139 mg/dL (75-99)
--- NOTE | 2016-06-02 12:44 | P.PN ---
Subjective Patient is doing fairly well today. She is up in the chair Objective - Vital Signs Vital signs: Vital Signs Temp 97.4 F L 06/02/16 07:00 Pulse 67 06/02/16 07:00 Resp 18 06/02/16 07:00 BP 141/67 06/02/16 07:00 Pulse Ox 97 06/02/16 07:00 Intake & Output 06/01/16 06/02/16 06/02/16 18:59 06:59 18:59 Intake Total 430 250 Output Total 1335 Balance -905 250 Intake: IV 140 .9 KVO 40 Intake, IV Titration 50 Amount Piperacillin-Tazobactam 3 50 .375 gm In Dextrose/Water 1 50ml.bag @ 12.5 mls/hr IVPB Q8HR [facility] Rx#: [id number] Oral 240 250 Output: Urine 1335 Uretheral (Pham) 600 Other: Voiding Method Indwelling Catheter Bedside Commode # Voids 2 # Bowel Movements 1 - Exam General: The patient is awake and alert, in no distress Eye: there is normal conjunctiva bilaterally. Neck: The neck is supple, there is no JVD. Cardiovascular: Normal S1-S2, no S3-S4, no murmurs. Respiratory: Lungs clear to auscultation bilaterally Gastrointestinal: Abdomen is soft, nontender Musculoskeletal: There is no pedal edema. Neurological:. Speech is normal. Skin: Skin is warm and dry - Labs CBC & Chem 7: 06/02/16 07:15 06/01/16 05:03 Labs: Abnormal Lab Results - Last 24 Hours (Table) 06/01/16 06/01/16 06/02/16 Range/Units 16:31 20:57 07:05 RBC (3.80-5.40) m/uL Hgb (11.4-16.0) gm/dL Hct (34.0-46.0) % Lymphocytes # (1.0-4.8) k/uL POC Glucose (mg/dL) 134 H 203 H 144 H (75-99) mg/dL Triglycerides (<150) mg/dL HDL Cholesterol (40-60) mg/dL 06/02/16 06/02/16 06/02/16 Range/Units 07:15 07:15 12:24 RBC 3.39 L (3.80-5.40) m/uL Hgb 9.8 L (11.4-16.0) gm/dL Hct 31.4 L (34.0-46.0) % Lymphocytes # 0.8 L (1.0-4.8) k/uL POC Glucose (mg/dL) 139 H (75-99) mg/dL Triglycerides 219 H (<150) mg/dL HDL Cholesterol 28 L (40-60) mg/dL Assessment and Plan Plan: #1 non-ST elevation [place] on presentation: Seen and evaluated by cardiology. Was not a candidate for anticoagulation given GI bleed on presentation. Managed medically. Echocardiogram showed preserved EF of 55-60%. No significant valvular abnormalities. No significant wall motion abnormality reported. Appreciate cardiology recommendations. #2 chronic blood loss anemia: Status post 2 units of blood transfusion during this admission. EGD showed mild gastritis with no evidence of ulcers or active bleeding. Continue Protonix daily #3 underlying bibasilar pneumonia: Seen and evaluated by pulmonology. Currently on IV Zosyn. Improving clinically. #4 mixed hyperlipidemia: Started on Lipitor. Cholesterol level at goal. LDL 54 #5 Essential hypertension: Blood pressure well controlled. Added lisinopril 5 mg daily during this admission #6 coronary artery disease with history of CABG years ago Today, I reviewed her medication list and lab work results. Continue current regimen. Appreciate market research consultant's recommendations. PT/OT evaluation. Encouraged ambulation. Advance diet as tolerated. Repeat lab work in the morning. Discharge planning
[2016-06-02] MEDS: HYDROmorphone 1 MG/ML 1 ML SYRINGE IVP PRN (15:42)
[2016-06-02] MEDS: FUROSEMIDE 10 MG/ML 4 ML VIAL IV SCH ×2 (15:42→23:05)
--- NOTE | 2016-06-02 16:13 | PN ---
This patient was admitted with GI bleeding. Patient has a history of coronary artery bypass surgery. Patient is feeling better. Denies any significant shortness of breath or orthopnea or PND or cough. Patient's chest x-ray still shows evidence of congestive cardiac failure. Blood pressure is 140/67 mmHg. Oxygen saturation is 97%. HEART: S1 and S2 normal. Lungs reveal bilateral few basal rales. We will give this patient additional dose of Lasix 40 mg IV b.i.d. today and then probably continue the oral medications.
--- NOTE | 2016-06-02 16:23 | P.PN ---
Subjective 80-year-old female patient was presenting to the hospital because of pain across her lower chest that is somewhat pleuritic in nature it's been going on for the past 24 hours. Noted the patient to follow approximately 3 weeks ago and she sustained a fracture to her left humerus and this was being treated conservatively and she did not require any surgical intervention. Her pain started approximately 24 hours ago. No fever. No chills. Minimal amount of sputum production. She in the burst department, the patient was also found to be anemic with a hemoglobin of 7.4. She had a heme positive stool and she is suspected to have a GI bleeding. She was brought into the intensive care unit. A CT angios the chest was done that showed no evidence of any pulmonary embolism. Nevertheless, there is some infiltration in lung bases bilaterally along with some small pleural effusions typical of an underlying pneumonia. Hemodynamically she is stable. She hasn't shown any signs of GI bleeding further. The intensive care unit. She is known to have coronary artery disease along with hypertension and hyperlipidemia and diabetes mellitus. Her troponin came back positive and peaked at 1.9. EKG showing a right bundle branch block pattern with a normal sinus rhythm. The patient was also seen by cardiology. Patient was seen today on 06/01/2016, she underwent EGD and she was found to have mild diffuse gastritis, no evidence of peptic ulcer disease and no evidence of active bleeding. Patient had initial presentation of coffee-ground emesis and anemia with low hemoglobin requiring 2 units of packed RBC transfusion. Chest x-ray showed minimal density in the right lower lobe suggestive of possible pneumonia or right lower lobe atelectasis. There is also prominence of the pulmonary vasculature suggestive of mild interstitial edema. Labs showed no evidence of leukocytosis her electrolytes and basic metabolic profile are normal. Creatinine is up to 1.20 today The patient is seen again today 06/02/2016 in follow-up on the regular medical floor. She is awake and alert in no acute distress. Her hemoglobin has been stable currently at 9.8. She is being diuresed with Lasix 40 mg IV every 8 hours. Today's chest x-ray shows congestive heart failure with mild interstitial pulmonary edema. He is maintaining good O2 saturations in the mid 90s on room air. Currently afebrile. Objective - Vital Signs Vital signs: Vital Signs Temp 97.2 F L 06/02/16 15:00 Pulse 65 06/02/16 15:00 Resp 16 06/02/16 15:00 BP 141/89 06/02/16 15:00 Pulse Ox 94 L 06/02/16 15:00 Intake & Output 06/01/16 06/02/16 06/02/16 18:59 06:59 18:59 Intake Total 430 250 240 Output Total 1335 Balance -905 250 240 Intake: IV 140 .9 KVO 40 Intake, IV Titration 50 Amount Piperacillin-Tazobactam 3 50 .375 gm In Dextrose/Water 1 50ml.bag @ 12.5 mls/hr IVPB Q8HR [facility] Rx#: [id number] Oral 240 250 240 Output: Urine 1335 Uretheral (Pham) 600 Other: Voiding Method Indwelling Catheter Bedside Commode # Voids 2 1 # Bowel Movements 1 1 - Exam Head exam was generally normal. There was no scleral icterus or corneal arcus. Mucous membranes were moist. Neck was supple and without jugular venous distension, thyromegaly, or carotid bruits. Carotids were easily palpable bilaterally. There was no adenopathy. Lung sounds are diminished bilaterally otherwise clear. There is some few crackles in lung bases bilaterally.Cardiac exam revealed the PMI to be normally situated and sized. The rhythm was regular and no extrasystoles were noted during several minutes of auscultation. The first and second heart sounds were normal and physiologic splitting of the second heart sound was noted. There were no murmurs, rubs, clicks, or gallops.Abdominal exam revealed normal bowel sounds. The abdomen was soft, non- tender, and without masses, organomegaly, or appreciable enlargement of the abdominal aorta.Examination of the extremities revealed easily palpable radial, femoral and pedal pulses. There was no cyanosis, clubbing or edema. - Labs CBC & Chem 7: 06/02/16 07:15 06/01/16 05:03 Labs: Abnormal Lab Results - Last 24 Hours (Table) 06/01/16 06/01/16 06/02/16 Range/Units 16:31 20:57 07:05 RBC (3.80-5.40) m/uL Hgb (11.4-16.0) gm/dL Hct (34.0-46.0) % Lymphocytes # (1.0-4.8) k/uL POC Glucose (mg/dL) 134 H 203 H 144 H (75-99) mg/dL Triglycerides (<150) mg/dL HDL Cholesterol (40-60) mg/dL 06/02/16 06/02/16 06/02/16 Range/Units 07:15 07:15 12:24 RBC 3.39 L (3.80-5.40) m/uL Hgb 9.8 L (11.4-16.0) gm/dL Hct 31.4 L (34.0-46.0) % Lymphocytes # 0.8 L (1.0-4.8) k/uL POC Glucose (mg/dL) 139 H (75-99) mg/dL Triglycerides 219 H (<150) mg/dL HDL Cholesterol 28 L (40-60) mg/dL Assessment and Plan Plan: Assessment 1 acute bilateral lower chest pain, pleuritic in nature with development of bibasilar pulmonary infiltrates and small effusions with no evidence of any pulmonary embolism based on the CAT scan findings. Suspect bilateral pneumonia knowing that his infiltrates and effusions are on a new onset there were not present approximately 3 weeks ago. 2 troponin leak, with a right bundle branch block pattern. 3 coronary artery disease with previous bypass surgery 4 aortic stenosis 5 CHF with diastolic dysfunction and ejection fraction of 55-60% 6 hypertension 7 diabetes mellitus type 2 8 hyperlipidemia 9 recent syncope with a fall and fracture of the left humerus 10 anemia with suspected GI bleeding. The patient got transfused with 2 units packed RBCs Plan The patient was seen and evaluated by Dr. Hardy. She is currently stable from the pulmonary and critical care standpoint. She remains on Zosyn. No continued active bleeding. Hemoglobin stable at 9.8. We'll continue to monitor for any signs of recurrent GI bleeding. We'll continue to follow make further recommendations based on her clinical status.
[2016-06-02 16:37] LABS: Glucose,Whole Blood 139 mg/dL (75-99)
[2016-06-02] MEDS: SERTRALINE 100 MG TAB PO SCH (20:17)
[2016-06-02] MEDS: MULTIVITAMINS, THERA 1 EACH TAB PO SCH (20:17)
[2016-06-02] MEDS: POTASSIUM CHLORIDE ER 10 MEQ TAB.ER.PRT PO SCH (20:17)
[2016-06-02] MEDS: FENOFIBRATE 160 MG TAB PO SCH (20:17)
[2016-06-02] MEDS: ASCORBIC ACID 500 MG TAB PO SCH (20:17)
[2016-06-02] MEDS: CHOLECALCIFEROL 1,000 UNIT TAB PO SCH (20:17)
[2016-06-02] MEDS: DONEPEZIL 10 MG TAB PO SCH (20:17)
[2016-06-02 21:23] LABS: Glucose,Whole Blood 164 mg/dL (75-99)
[2016-06-03] MEDS: HYDROmorphone 1 MG/ML 1 ML SYRINGE IVP PRN ×3 (00:42→22:24)
[2016-06-03 07:27] LABS: Glucose,Whole Blood 152 mg/dL (75-99)
[2016-06-03] MEDS: FUROSEMIDE 40 MG TAB PO SCH (08:02)
[2016-06-03] MEDS: METOPROLOL TARTRATE 12.5 MG TAB PO SCH ×2 (08:02→21:59)
[2016-06-03] MEDS: INSULIN LISPRO (humaLOG) 300 UNIT/3 ML VIAL SQ SCH ×4 (08:02→22:01)
[2016-06-03] MEDS: PIPERACILLIN-TAZOBACTAM 3.375 GM in DEXTROSE/WATER 1 50ML.BAG IVPB SCH (08:02)
[2016-06-03] MEDS: PANTOPRAZOLE 40 MG/10 ML VIAL IV SCH (08:02)
[2016-06-03] MEDS: ATORVASTATIN 40 MG TAB PO SCH (08:02)
[2016-06-03] MEDS: LISINOPRIL 5 MG TAB PO SCH (08:02)
[2016-06-03] MEDS: NITROGLYCERIN OINT 1 INCH/GM PACKET TOPICAL SCH ×2 (08:02→15:50)
[2016-06-03] MEDS: LORATADINE 10 MG TAB PO SCH (08:02)
[2016-06-03 09:12] LABS: Calcium 8.9 mg/dL (8.4-10.2); Magnesium 1.5 mg/dL (1.6-2.3); Phosphorous 2.9 mg/dL (2.5-4.5); Potassium 3.6 mmol/L (3.5-5.1); Total Bilirubin 0.6 mg/dL (0.2-1.3); Total Protein 5.8 g/dL (6.3-8.2)
[2016-06-03 09:16] LABS: Basophils % (A) 0 %; CH 28.1; CHCM 31.3; Eosinophils # (A) 0.2 k/uL (0-0.7); Eosinophils % (A) 5 %; HCT 33.4 % (34.0-46.0); HDW 4.03; HGB 10.4 gm/dL (11.4-16.0); Hypochromasia Marked; Luc # (Auto) 0.16; Luc % (Auto) 3; Lymphocytes # (A) 0.9 k/uL (1.0-4.8); Lymphocytes % (A) 18 %; MCV 90.2 fL (80.0-100.0); Mean Platelet Volume 6.8; Monocytes # (A) 0.4 k/uL (0-1.0); Monocytes % (A) 8 %; Neutrophils # (A) 3.1 k/uL (1.3-7.7); Neutrophils % (A) 65 %; Poikilocytosis Moderate; RDW 13.5 % (11.5-15.5); WBC 4.8 k/uL (3.8-10.6); WBC (Perox) 5.34
--- NOTE | 2016-06-03 09:59 | P.PN ---
Subjective Principal diagnosis: Upper GI bleed coffee-ground emesis 80-year-old female status post EGD yesterday for coffee ground emesis evaluation with findings of mild diffuse gastritis. Tolerating healthy heart diet. Denies abdominal pain. Afebrile. Hemoglobin 10.4. No reports of GI bleeding hematemesis hematochezia or melena Objective - Vital Signs Vital signs: Vital Signs Temp 98.6 F 06/03/16 07:00 Pulse 67 06/03/16 07:00 Resp 18 06/03/16 07:00 BP 162/70 06/03/16 07:00 Pulse Ox 93 L 06/03/16 07:05 Intake & Output 06/02/16 06/03/16 06/03/16 18:59 06:59 18:59 Intake Total 480 790 Balance 480 790 Intake: IV 220 .9 KVO 220 Intake, IV Titration 50 Amount Piperacillin-Tazobactam 3 50 .375 gm In Dextrose/Water 1 50ml.bag @ 12.5 mls/hr IVPB Q8HR [facility] Rx#: [id number] Oral 480 520 Other: Voiding Method Bedside Commode Bedside Commode # Voids 3 1 # Bowel Movements 1 1 - Exam General appearance: The patient is alert, oriented, in no acute distress. HET: Head is normocephalic and atraumatic. Pupils are equal and reactive. Oropharynx is clear without lesions. Neck: Supple without lymphadenopathy. Trachea midline. Heart: S1 S2. Regular rate and rhythm. Lungs: No crackles or wheezes are heard. Abdomen: Soft, nontender, nondistended with bowel sounds. No peritoneal signs. No palpable organomegaly or masses. Extremities: Normal skin color and turgor. No cyanosis, rash, ulceration, clubbing, or edema. Radial and pedal pulses are 2/4 bilaterally. Neurological: No focal deficits. Strength and sensation are grossly intact. - Labs CBC & Chem 7: 06/03/16 08:21 06/03/16 08:21 Labs: Abnormal Lab Results - Last 24 Hours (Table) 06/02/16 06/02/16 06/02/16 Range/Units 12:24 16:34 20:54 RBC (3.80-5.40) m/uL Hgb (11.4-16.0) gm/dL Hct (34.0-46.0) % Lymphocytes # (1.0-4.8) k/uL Chloride (98-107) mmol/L Carbon Dioxide (22-30) mmol/L BUN (7-17) mg/dL Creatinine (0.52-1.04) mg/dL Glucose (74-99) mg/dL POC Glucose (mg/dL) 139 H 139 H 164 H (75-99) mg/dL Magnesium (1.6-2.3) mg/dL Total Protein (6.3-8.2) g/dL Albumin (3.5-5.0) g/dL 06/03/16 06/03/16 06/03/16 Range/Units 06:55 08:21 08:21 RBC 3.70 L (3.80-5.40) m/uL Hgb 10.4 L (11.4-16.0) gm/dL Hct 33.4 L (34.0-46.0) % Lymphocytes # 0.9 L (1.0-4.8) k/uL Chloride 95 L (98-107) mmol/L Carbon Dioxide 35 H (22-30) mmol/L BUN 19 H (7-17) mg/dL Creatinine 1.25 H (0.52-1.04) mg/dL Glucose 121 H (74-99) mg/dL POC Glucose (mg/dL) 152 H (75-99) mg/dL Magnesium 1.5 L (1.6-2.3) mg/dL Total Protein 5.8 L (6.3-8.2) g/dL Albumin 3.2 L (3.5-5.0) g/dL Assessment and Plan (1) Coffee ground emesis Narrative/Plan: Mild diffuse gastritis Status: Acute (2) Gastritis Status: Acute (3) Upper GI bleeding Status: Acute (4) Acute blood loss anemia Status: Acute Plan: 1. Discharge per medicine. We'll defer to medicine for continuance of antiplatelet therapy. Assessment and plan of care discussed with Dr. Santiago.
--- NOTE | 2016-06-03 11:44 | CDI ---
In responding to this query, please exercise your independent professional judgment. The [facility] Coding Staff and Clinical Documentation Specialists appreciate your assistance in clarifying documentation, maintaining compliance with coding guidelines, accurately documenting patients condition and capturing severity of illness. The fact that a question is asked does not imply that any particular answer is desired or expected. Communication forms are a method of clarifying documentation and are not made part of the Legal Health Record. Thank you in advance for your clarification. Last Revision, June 2015 Louis Goetz [address] [place] [address] Documentation Clarification Form Date: 06/01/2016 4:36:00 PM From: Kb Shaw, RN, BSN, CDI Admit Date: 05/30/2016 10:28:00 PM Patient Name: Dulce Maria Braswell Visit Number: [id number] Dr. Dafne Gutierrez: CHF is documented in the ED impressions, H&P and cardiology and GI consult . Per the GI consult "CHF is exacerbated". History/Risk Factors: 80 yo female with a history of CAD, DM, GERD, hyperlipidemia, HTN and CABG presents with c/o chest pain, mild SOB and an episode of coffee ground emesis. Clinical Indicators: VS/Pulse OX: 185/107, 89, 26, 99.3, 91% RA BNP: not done Echocardiogram Results: LVEF 55-60% Chest X Ray (on admission): correlate for CHF with mild interstitial pulmonary edema, trace pleural effusions CXR on 05/31: improving CHF with interstitial pulmonary edema Treatment: Lasix 20mg IVP x1, Lasix 40mg PO QD, Lopressor Consults: Cardiology consult Update: on 06/02: cardiology documents "CXR still shows evidence of congestive cardiac failure, lungs reveal b/l few rales, will give additional dose of Lasix 40mg IVP BID today and then probably continue the oral medications". In your professional opinion, can you please clarify the acuity and type of CHF if known? Acute Chronic Acute on Chronic AND Systolic Diastolic Systolic and Diastolic Unable to determine Other, please specify If known, please specify if Heart Failure is due to: Hypertension Rheumatic Fever If the diagnosis of CHF has been ruled out, please document accordingly. Please document in your progress notes and discharge summary in order to capture severity of illness and risk of mortality. Include clinical findings that support your diagnosis. FYI: Press F11 to launch patient chart. Place X here if this finding has no clinical significance, is not applicable or if you are not able to provide any additional documentation. CHRISTINA
[2016-06-03 12:04] LABS: Hemoglobin A1C 5.2 % (4.2-6.1)
[2016-06-03 12:31] LABS: Glucose,Whole Blood 184 mg/dL (75-99)
--- NOTE | 2016-06-03 13:32 | P.PN ---
Subjective Patient is doing fairly well today. She is complaining of multiple episodes of diarrhea approximately 4 bowel movements yesterday and one this morning that was mushy and watery. No fevers documented. No blood in stool. Objective - Vital Signs Vital signs: Vital Signs Temp 98.6 F 06/03/16 07:00 Pulse 67 06/03/16 07:00 Resp 18 06/03/16 07:00 BP 162/70 06/03/16 07:00 Pulse Ox 93 L 06/03/16 07:05 Intake & Output 06/02/16 06/03/16 06/03/16 18:59 06:59 18:59 Intake Total 480 790 240 Balance 480 790 240 Intake: IV 220 .9 KVO 220 Intake, IV Titration 50 Amount Piperacillin-Tazobactam 3 50 .375 gm In Dextrose/Water 1 50ml.bag @ 12.5 mls/hr IVPB Q8HR [facility] Rx#: [id number] Oral 480 520 240 Other: Voiding Method Bedside Commode Bedside Commode # Voids 3 1 # Bowel Movements 1 1 - Exam General: The patient is awake and alert, in no distress Eye: there is normal conjunctiva bilaterally. Neck: The neck is supple, there is no JVD. Cardiovascular: Normal S1-S2, no S3-S4, no murmurs. Respiratory: Lungs clear to auscultation bilaterally Gastrointestinal: Abdomen is soft, nontender Musculoskeletal: There is no pedal edema. Neurological:. Speech is normal. Skin: Skin is warm and dry - Labs CBC & Chem 7: 06/03/16 08:21 06/03/16 08:21 Labs: Abnormal Lab Results - Last 24 Hours (Table) 06/02/16 06/02/16 06/03/16 Range/Units 16:34 20:54 06:55 RBC (3.80-5.40) m/uL Hgb (11.4-16.0) gm/dL Hct (34.0-46.0) % Lymphocytes # (1.0-4.8) k/uL Chloride (98-107) mmol/L Carbon Dioxide (22-30) mmol/L BUN (7-17) mg/dL Creatinine (0.52-1.04) mg/dL Glucose (74-99) mg/dL POC Glucose (mg/dL) 139 H 164 H 152 H (75-99) mg/dL Magnesium (1.6-2.3) mg/dL Total Protein (6.3-8.2) g/dL Albumin (3.5-5.0) g/dL 06/03/16 06/03/16 06/03/16 Range/Units 08:21 08:21 12:26 RBC 3.70 L (3.80-5.40) m/uL Hgb 10.4 L (11.4-16.0) gm/dL Hct 33.4 L (34.0-46.0) % Lymphocytes # 0.9 L (1.0-4.8) k/uL Chloride 95 L (98-107) mmol/L Carbon Dioxide 35 H (22-30) mmol/L BUN 19 H (7-17) mg/dL Creatinine 1.25 H (0.52-1.04) mg/dL Glucose 121 H (74-99) mg/dL POC Glucose (mg/dL) 184 H (75-99) mg/dL Magnesium 1.5 L (1.6-2.3) mg/dL Total Protein 5.8 L (6.3-8.2) g/dL Albumin 3.2 L (3.5-5.0) g/dL Assessment and Plan Plan: #1 non-ST elevation [place] on presentation: Seen and evaluated by cardiology. Was not a candidate for anticoagulation given GI bleed on presentation. Managed medically. Echocardiogram showed preserved EF of 55-60%. No significant valvular abnormalities. No significant wall motion abnormality reported. Appreciate cardiology recommendations. #2 chronic blood loss anemia: Status post 2 units of blood transfusion during this admission. EGD showed mild gastritis with no evidence of ulcers or active bleeding. Continue Protonix daily #3 underlying bibasilar pneumonia: Seen and evaluated by pulmonology. Currently on IV Zosyn. Improving clinically. #4 mixed hyperlipidemia: Started on Lipitor. Cholesterol level at goal. LDL 54 #5 Essential hypertension: Blood pressure well controlled. Added lisinopril 5 mg daily during this admission #6 coronary artery disease with history of CABG years ago #7 Acute diarrhea: Obtain stool sample to rule out C. diff Today, I reviewed her medication list and lab work results. Continue current regimen. Plan to discharge home tomorrow if stool sample is negative for C. diff. Finish antibiotic course with Augmentin.
--- NOTE | 2016-06-03 14:25 | P.PN ---
Subjective 80-year-old female patient was presenting to the hospital because of pain across her lower chest that is somewhat pleuritic in nature it's been going on for the past 24 hours. Noted the patient to follow approximately 3 weeks ago and she sustained a fracture to her left humerus and this was being treated conservatively and she did not require any surgical intervention. Her pain started approximately 24 hours ago. No fever. No chills. Minimal amount of sputum production. She in the burst department, the patient was also found to be anemic with a hemoglobin of 7.4. She had a heme positive stool and she is suspected to have a GI bleeding. She was brought into the intensive care unit. A CT angios the chest was done that showed no evidence of any pulmonary embolism. Nevertheless, there is some infiltration in lung bases bilaterally along with some small pleural effusions typical of an underlying pneumonia. Hemodynamically she is stable. She hasn't shown any signs of GI bleeding further. The intensive care unit. She is known to have coronary artery disease along with hypertension and hyperlipidemia and diabetes mellitus. Her troponin came back positive and peaked at 1.9. EKG showing a right bundle branch block pattern with a normal sinus rhythm. The patient was also seen by cardiology. Patient was seen today on 06/01/2016, she underwent EGD and she was found to have mild diffuse gastritis, no evidence of peptic ulcer disease and no evidence of active bleeding. Patient had initial presentation of coffee-ground emesis and anemia with low hemoglobin requiring 2 units of packed RBC transfusion. Chest x-ray showed minimal density in the right lower lobe suggestive of possible pneumonia or right lower lobe atelectasis. There is also prominence of the pulmonary vasculature suggestive of mild interstitial edema. Labs showed no evidence of leukocytosis her electrolytes and basic metabolic profile are normal. Creatinine is up to 1.20 today The patient is seen again today 06/02/2016 in follow-up on the regular medical floor. She is awake and alert in no acute distress. Her hemoglobin has been stable currently at 9.8. She is being diuresed with Lasix 40 mg IV every 8 hours. Today's chest x-ray shows congestive heart failure with mild interstitial pulmonary edema. She is maintaining good O2 saturations in the mid 90s on room air. Currently afebrile. The patient is seen again today 06/03/2016 in follow-up on the regular medical floor. She is awake and alert in no acute distress. She denies any worsening shortness of breath, cough or congestion. She is hypoxic on room air at 88%. Her hemoglobin remains stable at 10.4. She is status post 2 units of packed red blood cells. She denies any dizziness or lightheadedness. Objective - Vital Signs Vital signs: Vital Signs Temp 98.6 F 06/03/16 07:00 Pulse 67 06/03/16 07:00 Resp 18 06/03/16 07:00 BP 162/70 06/03/16 07:00 Pulse Ox 93 L 06/03/16 07:05 Intake & Output 06/02/16 06/03/16 06/03/16 18:59 06:59 18:59 Intake Total 480 790 240 Balance 480 790 240 Intake: IV 220 .9 KVO 220 Intake, IV Titration 50 Amount Piperacillin-Tazobactam 3 50 .375 gm In Dextrose/Water 1 50ml.bag @ 12.5 mls/hr IVPB Q8HR [facility] Rx#: [id number] Oral 480 520 240 Other: Voiding Method Bedside Commode Bedside Commode # Voids 3 1 2 # Bowel Movements 1 1 2 - Exam Head exam was generally normal. There was no scleral icterus or corneal arcus. Mucous membranes were moist. Neck was supple and without jugular venous distension, thyromegaly, or carotid bruits. Carotids were easily palpable bilaterally. There was no adenopathy. Lung sounds are diminished bilaterally otherwise clear. There is some few crackles in lung bases bilaterally.Cardiac exam revealed the PMI to be normally situated and sized. The rhythm was regular and no extrasystoles were noted during several minutes of auscultation. The first and second heart sounds were normal and physiologic splitting of the second heart sound was noted. There were no murmurs, rubs, clicks, or gallops.Abdominal exam revealed normal bowel sounds. The abdomen was soft, non- tender, and without masses, organomegaly, or appreciable enlargement of the abdominal aorta.Examination of the extremities revealed easily palpable radial, femoral and pedal pulses. There was no cyanosis, clubbing or edema. - Labs CBC & Chem 7: 06/03/16 08:21 06/03/16 08:21 Labs: Abnormal Lab Results - Last 24 Hours (Table) 06/02/16 06/02/16 06/03/16 Range/Units 16:34 20:54 06:55 RBC (3.80-5.40) m/uL Hgb (11.4-16.0) gm/dL Hct (34.0-46.0) % Lymphocytes # (1.0-4.8) k/uL Chloride (98-107) mmol/L Carbon Dioxide (22-30) mmol/L BUN (7-17) mg/dL Creatinine (0.52-1.04) mg/dL Glucose (74-99) mg/dL POC Glucose (mg/dL) 139 H 164 H 152 H (75-99) mg/dL Magnesium (1.6-2.3) mg/dL Total Protein (6.3-8.2) g/dL Albumin (3.5-5.0) g/dL 06/03/16 06/03/16 06/03/16 Range/Units 08:21 08:21 12:26 RBC 3.70 L (3.80-5.40) m/uL Hgb 10.4 L (11.4-16.0) gm/dL Hct 33.4 L (34.0-46.0) % Lymphocytes # 0.9 L (1.0-4.8) k/uL Chloride 95 L (98-107) mmol/L Carbon Dioxide 35 H (22-30) mmol/L BUN 19 H (7-17) mg/dL Creatinine 1.25 H (0.52-1.04) mg/dL Glucose 121 H (74-99) mg/dL POC Glucose (mg/dL) 184 H (75-99) mg/dL Magnesium 1.5 L (1.6-2.3) mg/dL Total Protein 5.8 L (6.3-8.2) g/dL Albumin 3.2 L (3.5-5.0) g/dL Assessment and Plan Plan: Assessment 1 acute bilateral lower chest pain, pleuritic in nature with development of bibasilar pulmonary infiltrates and small effusions with no evidence of any pulmonary embolism based on the CAT scan findings. Suspect bilateral pneumonia knowing that his infiltrates and effusions are on a new onset there were not present approximately 3 weeks ago. 2 troponin leak, with a right bundle branch block pattern. 3 coronary artery disease with previous bypass surgery 4 aortic stenosis 5 acute exacerbation of CHF with diastolic dysfunction and ejection fraction of 55-60% 6 hypertension 7 diabetes mellitus type 2 8 hyperlipidemia 9 recent syncope with a fall and fracture of the left humerus 10 anemia with suspected GI bleeding. The patient got transfused with 2 units packed RBCs Plan The patient was seen and evaluated by Dr. Hardy. She is currently stable from the pulmonary standpoint. She remains on Augmentin. No continued active bleeding. Hemoglobin stable at 10.4. We'll continue to monitor for any signs of recurrent GI bleeding. She remains on oral diuretics. C. diff toxin screen is uncollected thus far. We will increase her activity as tolerated.
[2016-06-03 17:22] LABS: Glucose,Whole Blood 113 mg/dL (75-99)
[2016-06-03 20:54] LABS: Glucose,Whole Blood 163 mg/dL (75-99)
[2016-06-03] MEDS: CHOLECALCIFEROL 1,000 UNIT TAB PO SCH (21:59)
[2016-06-03] MEDS: ASCORBIC ACID 500 MG TAB PO SCH (21:59)
[2016-06-03] MEDS: DONEPEZIL 10 MG TAB PO SCH (22:00)
[2016-06-03] MEDS: MULTIVITAMINS, THERA 1 EACH TAB PO SCH (22:00)
[2016-06-03] MEDS: SERTRALINE 100 MG TAB PO SCH (22:00)
[2016-06-03] MEDS: POTASSIUM CHLORIDE ER 10 MEQ TAB.ER.PRT PO SCH (22:00)
[2016-06-03] MEDS: FENOFIBRATE 160 MG TAB PO SCH (22:00)
[2016-06-04] MEDS: NITROGLYCERIN OINT 1 INCH/GM PACKET TOPICAL SCH ×2 (02:13→10:00)
[2016-06-04] MEDS: AMOXIC-POT CLAV 500-125 MG 1 EACH TAB PO SCH ×2 (02:13→09:59)
[2016-06-04 06:55] LABS: Glucose,Whole Blood 144 mg/dL (75-99)
[2016-06-04 07:44] VITALS: BP 150/94; PULSE 79; RESP 24; TEMP 97.4
[2016-06-04] MEDS: INSULIN LISPRO (humaLOG) 300 UNIT/3 ML VIAL SQ SCH ×2 (09:59→12:22)
[2016-06-04] MEDS: PANTOPRAZOLE 40 MG/10 ML VIAL IV SCH (09:59)
[2016-06-04] MEDS: ATORVASTATIN 40 MG TAB PO SCH (10:00)
[2016-06-04] MEDS: LISINOPRIL 5 MG TAB PO SCH (10:00)
[2016-06-04] MEDS: METOPROLOL TARTRATE 12.5 MG TAB PO SCH (10:00)
[2016-06-04] MEDS: FUROSEMIDE 40 MG TAB PO SCH (10:01)
[2016-06-04] MEDS: LORATADINE 10 MG TAB PO SCH (10:01)
[2016-06-04] MEDS: HYDROmorphone 1 MG/ML 1 ML SYRINGE IVP PRN (10:08)
[2016-06-04 10:10] LABS: Basophils # (A) 0.1 k/uL (0-0.2); Basophils % (A) 2 %; CHCM 32.2; Eosinophils # (A) 0.2 k/uL (0-0.7); Eosinophils % (A) 4 %; HCT 35.3 % (34.0-46.0); HDW 4.06; HGB 11.5 gm/dL (11.4-16.0); Hypochromasia Moderate; Luc # (Auto) 0.15; Luc % (Auto) 3; Lymphocytes # (A) 0.9 k/uL (1.0-4.8); Lymphocytes % (A) 17 %; MCH 28.6 pg (25.0-35.0); MCHC 32.7 g/dL (31.0-37.0); MCV 87.3 fL (80.0-100.0); Mean Platelet Volume 7.5; Monocytes # (A) 0.4 k/uL (0-1.0); Monocytes % (A) 8 %; Neutrophils # (A) 3.7 k/uL (1.3-7.7); Neutrophils % (A) 67 %; Poikilocytosis Moderate; RBC 4.04 m/uL (3.80-5.40); RDW 13.6 % (11.5-15.5); WBC 5.4 k/uL (3.8-10.6); WBC (Perox) 5.94
[2016-06-04 10:45] LABS: ALT 22 U/L (9-52); AST 29 U/L (14-36); Alkaline Phosphatase 60 U/L (38-126); Anion Gap 11 mmol/L; Blood Urea Nitrogen 19 mg/dL (7-17); Calcium 9.5 mg/dL (8.4-10.2); Carbon Dioxide 32 mmol/L (22-30); Chloride 96 mmol/L (98-107); Glucose 120 mg/dL (74-99); Magnesium 1.7 mg/dL (1.6-2.3); Non-African American GFR(MDRD) 57 (>60 ml/min/1.73 sqM); Phosphorous 2.6 mg/dL (2.5-4.5); Potassium 3.8 mmol/L (3.5-5.1); Sodium 139 mmol/L (137-145); Total Bilirubin 0.7 mg/dL (0.2-1.3)
[2016-06-04 12:36] LABS: Glucose,Whole Blood 144 mg/dL (75-99)
--- NOTE | 2016-06-04 13:32 | P.PN ---
Subjective 80-year-old female patient was presenting to the hospital because of pain across her lower chest that is somewhat pleuritic in nature it's been going on for the past 24 hours. Noted the patient to follow approximately 3 weeks ago and she sustained a fracture to her left humerus and this was being treated conservatively and she did not require any surgical intervention. Her pain started approximately 24 hours ago. No fever. No chills. Minimal amount of sputum production. She in the burst department, the patient was also found to be anemic with a hemoglobin of 7.4. She had a heme positive stool and she is suspected to have a GI bleeding. She was brought into the intensive care unit. A CT angios the chest was done that showed no evidence of any pulmonary embolism. Nevertheless, there is some infiltration in lung bases bilaterally along with some small pleural effusions typical of an underlying pneumonia. Hemodynamically she is stable. She hasn't shown any signs of GI bleeding further. The intensive care unit. She is known to have coronary artery disease along with hypertension and hyperlipidemia and diabetes mellitus. Her troponin came back positive and peaked at 1.9. EKG showing a right bundle branch block pattern with a normal sinus rhythm. The patient was also seen by cardiology. Patient was seen today on 06/01/2016, she underwent EGD and she was found to have mild diffuse gastritis, no evidence of peptic ulcer disease and no evidence of active bleeding. Patient had initial presentation of coffee-ground emesis and anemia with low hemoglobin requiring 2 units of packed RBC transfusion. Chest x-ray showed minimal density in the right lower lobe suggestive of possible pneumonia or right lower lobe atelectasis. There is also prominence of the pulmonary vasculature suggestive of mild interstitial edema. Labs showed no evidence of leukocytosis her electrolytes and basic metabolic profile are normal. Creatinine is up to 1.20 today The patient is seen again today 06/02/2016 in follow-up on the regular medical floor. She is awake and alert in no acute distress. Her hemoglobin has been stable currently at 9.8. She is being diuresed with Lasix 40 mg IV every 8 hours. Today's chest x-ray shows congestive heart failure with mild interstitial pulmonary edema. She is maintaining good O2 saturations in the mid 90s on room air. Currently afebrile. The patient is seen again today 06/03/2016 in follow-up on the regular medical floor. She is awake and alert in no acute distress. She denies any worsening shortness of breath, cough or congestion. She is hypoxic on room air at 88%. Her hemoglobin remains stable at 10.4. She is status post 2 units of packed red blood cells. She denies any dizziness or lightheadedness. The patient is seen again today 06/04/2016 in follow-up. She is awake and alert in no acute distress. She is now maintaining good O2 saturations in the mid 90s on room air. She has no pulmonary complaints. Her hemoglobin is stable currently at 11.5. She is diuresed well and currently on Lasix orally. Objective - Vital Signs Vital signs: Vital Signs Temp 97.4 F L 06/04/16 07:00 Pulse 79 06/04/16 07:00 Resp 24 06/04/16 07:00 BP 150/94 06/04/16 07:00 Pulse Ox 94 L 06/04/16 07:00 Intake & Output 06/03/16 06/04/16 06/04/16 18:59 06:59 18:59 Intake Total 720 500 Output Total 600 Balance 720 -100 Weight 80 kg Intake: Oral 720 500 Output: Urine 600 Other: Voiding Method Bedside Commode Bedside Commode Bedside Commode # Voids 2 2 # Bowel Movements 2 1 - Exam Head exam was generally normal. There was no scleral icterus or corneal arcus. Mucous membranes were moist. Neck was supple and without jugular venous distension, thyromegaly, or carotid bruits. Carotids were easily palpable bilaterally. There was no adenopathy. Lung sounds are diminished bilaterally otherwise clear. There is some few crackles in lung bases bilaterally.Cardiac exam revealed the PMI to be normally situated and sized. The rhythm was regular and no extrasystoles were noted during several minutes of auscultation. The first and second heart sounds were normal and physiologic splitting of the second heart sound was noted. There were no murmurs, rubs, clicks, or gallops.Abdominal exam revealed normal bowel sounds. The abdomen was soft, non- tender, and without masses, organomegaly, or appreciable enlargement of the abdominal aorta.Examination of the extremities revealed easily palpable radial, femoral and pedal pulses. There was no cyanosis, clubbing or edema. - Labs CBC & Chem 7: 06/04/16 09:37 06/04/16 09:32 Labs: Abnormal Lab Results - Last 24 Hours (Table) 06/03/16 06/03/16 06/04/16 Range/Units 17:03 20:39 06:52 Lymphocytes # (1.0-4.8) k/uL Chloride (98-107) mmol/L Carbon Dioxide (22-30) mmol/L BUN (7-17) mg/dL Glucose (74-99) mg/dL POC Glucose (mg/dL) 113 H 163 H 144 H (75-99) mg/dL Total Protein (6.3-8.2) g/dL Albumin (3.5-5.0) g/dL 06/04/16 06/04/16 06/04/16 Range/Units 09:32 09:37 12:21 Lymphocytes # 0.9 L (1.0-4.8) k/uL Chloride 96 L (98-107) mmol/L Carbon Dioxide 32 H (22-30) mmol/L BUN 19 H (7-17) mg/dL Glucose 120 H (74-99) mg/dL POC Glucose (mg/dL) 144 H (75-99) mg/dL Total Protein 6.0 L (6.3-8.2) g/dL Albumin 3.4 L (3.5-5.0) g/dL Assessment and Plan Plan: Assessment 1 acute bilateral lower chest pain, pleuritic in nature with development of bibasilar pulmonary infiltrates and small effusions with no evidence of any pulmonary embolism based on the CAT scan findings. Suspect bilateral pneumonia knowing that his infiltrates and effusions are on a new onset there were not present approximately 3 weeks ago. 2 troponin leak, with a right bundle branch block pattern. 3 coronary artery disease with previous bypass surgery 4 aortic stenosis 5 acute exacerbation of CHF with diastolic dysfunction and ejection fraction of 55-60% 6 hypertension 7 diabetes mellitus type 2 8 hyperlipidemia 9 recent syncope with a fall and fracture of the left humerus 10 anemia with suspected GI bleeding. Status post transfusion of 2 units packed RBCs Plan The patient was seen and evaluated by Dr. Hardy. She is cleared for discharge from the pulmonary standpoint. She remains on Augmentin. No continued active bleeding. Hemoglobin stable at 11.5. She remains on oral diuretics. No further diarrhea.
--- NOTE | 2016-06-04 14:38 | P.DS ---
Providers Date of admission: 05/30/16 22:28 Expected date of discharge: 06/04/16 Attending physician: Dana Matt Consults: 05/31/16 06:54 Consult Physician Urgent Consulting Provider: Majo Garcia Consult Reason/Comments: Chest Pain, elevated troponins Do you want consulting provider notified?: Already Contacted Primary care physician: Franca Irving [facility] Course: This is a 80-year-old female with past medical history noted below who presented to the hospital initially with chest discomfort and pressure. She was evaluated in the emergency room and underwent a CT angiogram showing no evidence of PE. Patient was noted to have elevated troponin but 12 leads EKG showed no acute ischemic changes. She was noted to be anemic with a hemoglobin of 7 with no evidence of ongoing bleed. She was admitted to the intensive care unit and was seen by different specialists including cardiology, gastroenterology, and pulmonology. Below is a list of her medical problems addressed during this hospitalization. Patient improved significantly throughout her hospital stay. She was evaluated by PT/OT and was cleared for discharge home. She will follow-up with her primary care physician within the next 3-5 days. #1 non-ST elevation [place] on presentation: Seen and evaluated by cardiology. Was not a candidate for anticoagulation given GI bleed on presentation. Managed medically. Echocardiogram showed preserved EF of 55-60%. No significant valvular abnormalities. No significant wall motion abnormality reported. Appreciate cardiology recommendations. #2 chronic blood loss anemia: Status post 2 units of blood transfusion during this admission. EGD showed mild gastritis with no evidence of ulcers or active bleeding. Continue Protonix daily #3 underlying bibasilar pneumonia: Seen and evaluated by pulmonology. Will finish antibiotic course with Augmentin at home #4 mixed hyperlipidemia: Started on Lipitor. Cholesterol level at goal. LDL 54 #5 Essential hypertension: Blood pressure well controlled. Added lisinopril 5 mg daily during this admission #6 coronary artery disease with history of CABG years ago Patient Condition at Discharge: Critical Plan - Discharge Summary New Discharge Prescriptions: Amoxic-Pot Clav 875-125Mg [Augmentin 875-125] 1 tab PO Q12HR #10 tablet Lisinopril [Zestril] 5 mg PO DAILY #30 tab Discharge Medication List Donepezil [Aricept] 10 mg PO HS 02/15/15 [History] Fenofibrate [Lofibra] 160 mg PO HS 02/15/15 [History] Pantoprazole Sodium [Protonix] 40 mg PO QAM 02/15/15 [History] Ascorbic Acid [Vitamin C] 500 mg PO HS 05/03/16 [History] Cetirizine HCl 10 mg PO DAILY 05/03/16 [History] Cholecalciferol [Vitamin D3] 5,000 unit PO HS 05/03/16 [History] Clopidogrel [Plavix] 75 mg PO DAILY 05/03/16 [History] Ferrous Sulfate [Iron (65 MG Elemental)] 325 mg PO HS 05/03/16 [History] Furosemide [Lasix] 40 mg PO DAILY 05/03/16 [History] Metoprolol Tartrate [Lopressor] 12.5 mg PO HS 05/03/16 [History] Multivitamins, Thera [Multivitamin] 1 tab PO HS 05/03/16 [History] Potassium Chloride ER [K-Dur 10] 10 meq PO HS 05/03/16 [History] Sennosides [Senna] 8.6 mg PO HS PRN 05/03/16 [History] Sertraline [Zoloft] 100 mg PO HS 05/03/16 [History] Acetaminophen [Tylenol Arthritis] 1,300 mg PO BID PRN 05/30/16 [History] Nitroglycerin Sl Tabs [Nitrostat] 0.4 mg SUBLINGUAL Q5M PRN 05/30/16 [History] Amoxic-Pot Clav 875-125Mg [Augmentin 875-125] 1 tab PO Q12HR #10 tablet [Rx] Lisinopril [Zestril] 5 mg PO DAILY #30 tab 06/04/16 [Rx] Follow up Appointment(s)/Referral(s): [facility], [NON-STAFF] - Franca Irving DO [Primary Care Provider] - 3 Days Patient Instructions/Handouts: Heart Failure (DC), Gastrointestinal Bleeding ( DC) Activity/Diet/Wound Care/Special Instructions: Cardiac, diabetic diet- diabetic folder given. Discharge Disposition: HOME SELF-CARE
== END 2016-06-04 16:09 | disposition home health service (06) | DRG 377 ==
LOC: EC 19:34 → 6ICU 22:28 → 4MS4W 06-01 11:10
PROVIDERS: ADMIT Internal Medicine; ATTEND Internal Medicine
PROC: 30233N1 Transfusion of Nonautologous Red Blood Cells into Peripheral Vein, Percutaneous Approach (ICD-10-PCS; 2016-05-31)
PROC: 0T9B70Z Drainage of Bladder with Drainage Device, Via Natural or Artificial Opening (ICD-10-PCS; 2016-05-31)
PROC: 0DJ08ZZ Inspection of Upper Intestinal Tract, Via Natural or Artificial Opening Endoscopic (ICD-10-PCS; principal; 2016-06-01 07:45)
DX: K29.61 Other gastritis with bleeding (principal); I21.4 Non-ST elevation (NSTEMI) myocardial infarction; J18.9 Pneumonia, unspecified organism; I50.33 Acute on chronic diastolic (congestive) heart failure; E11.22 Type 2 diabetes mellitus with diabetic chronic kidney disease; N18.3 Chronic kidney disease, stage 3 (moderate); I13.0 Hypertensive heart and chronic kidney disease with heart failure and stage 1 through stage 4 chronic kidney disease, or unspecified chronic kidney disease; D62 Acute posthemorrhagic anemia; R13.10 Dysphagia, unspecified; I45.10 Unspecified right bundle-branch block; Z95.1 Presence of aortocoronary bypass graft; I25.10 Atherosclerotic heart disease of native coronary artery without angina pectoris; I25.2 Old myocardial infarction; K21.9 Gastro-esophageal reflux disease without esophagitis; F32.9 Major depressive disorder, single episode, unspecified; E78.2 Mixed hyperlipidemia; R29.6 Repeated falls; E78.00 Pure hypercholesterolemia, unspecified; R09.02 Hypoxemia; I08.0 Rheumatic disorders of both mitral and aortic valves; R19.7 Diarrhea, unspecified; R14.0 Abdominal distension (gaseous); K92.0 Hematemesis; G89.29 Other chronic pain; S42.302D Unspecified fracture of shaft of humerus, left arm, subsequent encounter for fracture with routine healing; M54.9 Dorsalgia, unspecified; M19.90 Unspecified osteoarthritis, unspecified site; Z79.899 Other long term (current) drug therapy; Z83.3 Family history of diabetes mellitus; Z79.02 Long term (current) use of antithrombotics/antiplatelets; Z90.49 Acquired absence of other specified parts of digestive tract; Z98.51 Tubal ligation status; Z98.42 Cataract extraction status, left eye; Z98.41 Cataract extraction status, right eye; Z86.010 Personal history of colon polyps; Z87.81 Personal history of (healed) traumatic fracture; Z87.19 Personal history of other diseases of the digestive system; Z91.81 History of falling
CPT/HCPCS: 36415; 43235; 71010; 71020; 71275; 74020; 80048; 80053; 80061; 81003; 82272; 82550; 82553; 83036; 83735; 83880; 84100; 84484; 85025; 85379; 85610; 85730; 86850; 86900; 86901; 86920; 93005; 93306; 94640; 96365; 96366; 96375; 99291

== ENCOUNTER 2016-08-13 02:54 | Inpatient (IN) | payer MEDICARE, OTHER ==
[2016-08-13] MEDS ORDERED: IPRATROPIUM-ALBUTEROL 3 ML NEB INHALATION STA (03:05)
[2016-08-13] MEDS ORDERED: VANCOMYCIN 1,000 MG in SODIUM CHLORIDE 0.9% 250 ML IVPB STA (03:06)
[2016-08-13 03:44] LABS: Basophils % (A) 0 %; CH 27.6; CHCM 30.3; Eosinophils % (A) 0 %; HCT 27.7 % (34.0-46.0); HDW 2.95; HGB 8.6 gm/dL (11.4-16.0); Hypochromasia Marked; Luc % (Auto) 4; Lymphocytes # (A) 1.3 k/uL (1.0-4.8); Lymphocytes % (A) 10 %; MCH 28.6 pg (25.0-35.0); MCHC 31.2 g/dL (31.0-37.0); MCV 91.7 fL (80.0-100.0); Mean Platelet Volume 7.6; Monocytes # (A) 1.1 k/uL (0-1.0); Monocytes % (A) 8 %; Neutrophils # (A) 10.1 k/uL (1.3-7.7); Neutrophils % (A) 78 %; RBC 3.02 m/uL (3.80-5.40); RDW 14.8 % (11.5-15.5); WBC (Perox) 12.66
[2016-08-13 03:52] LABS: INR 1.3 (<1.1); Partial Thromboplastin Time 24.3 sec (22.0-30.0); Prothrombin Time 12.5 sec (9.0-12.0)
[2016-08-13 04:15] LABS: Creatine Kinase MB 1.5 ng/mL (0.0-2.4)
[2016-08-13 04:25] LABS: Troponin I 2.1 ng/mL (0.000-0.034)
[2016-08-13] MEDS ORDERED: NALOXONE 0.4 MG/ML 1 ML VIAL IV PRN (04:51)
--- NOTE | 2016-08-13 04:51 | ED ---
SOB HPI - General Chief Complaint: Shortness of Breath Stated Complaint: fever Time Seen by Provider: 08/13/16 02:56 Source: family, EMS Mode of arrival: EMS - History of Present Illness Initial Comments: Patient complains of shortness of breath. Her symptoms have been getting worse for several days. She has not taken any specific medication for her symptoms. She was not doing anything when she began to feel this way. She denies any recent illnesses or sick contacts. She has no pain or swelling the legs. She has no palpitations. Nothing makes her symptoms better or worse. She has no headache. She has no diaphoresis. She has no nausea. - Related Data Home Medications Medication Instructions Recorded Confirmed Donepezil [Aricept] 10 mg PO HS 02/15/15 05/30/16 Fenofibrate [Lofibra] 160 mg PO HS 02/15/15 05/30/16 Pantoprazole Sodium [Protonix] 40 mg PO QAM 02/15/15 05/30/16 Ascorbic Acid [Vitamin C] 500 mg PO HS 05/03/16 05/30/16 Cetirizine HCl 10 mg PO DAILY 05/03/16 05/30/16 Cholecalciferol [Vitamin D3] 5,000 unit PO HS 05/03/16 05/30/16 Clopidogrel [Plavix] 75 mg PO DAILY 05/03/16 05/30/16 Ferrous Sulfate [Iron (65 MG 325 mg PO HS 05/03/16 05/30/16 Elemental)] Furosemide [Lasix] 40 mg PO DAILY 05/03/16 05/30/16 Metoprolol Tartrate [Lopressor] 12.5 mg PO HS 05/03/16 05/30/16 Multivitamins, Thera [Multivitamin 1 tab PO HS 05/03/16 05/30/16 (formulary)] Potassium Chloride ER [K-Dur 10] 10 meq PO HS 05/03/16 05/30/16 Sennosides [Senna] 8.6 mg PO HS PRN 05/03/16 05/30/16 Sertraline [Zoloft] 100 mg PO HS 05/03/16 05/30/16 Acetaminophen [Tylenol Arthritis] 1,300 mg PO BID PRN 05/30/16 05/30/16 Nitroglycerin Sl Tabs [Nitrostat] 0.4 mg SUBLINGUAL Q5M PRN 05/30/16 05/30/16 Previous Rx's Medication Instructions Recorded Amoxic-Pot Clav 875-125Mg 1 tab PO Q12HR #10 tablet 06/04/16 [Augmentin 875-125] Lisinopril [Zestril] 5 mg PO DAILY #30 tab 06/04/16 Allergies Allergy/AdvReac Type Severity Reaction Status Date / Time No Known Allergies Allergy Verified 05/30/16 20:01 Review of Systems ROS Statement: Those systems with pertinent positive or pertinent negative responses have been documented in the HPI. ROS Other: All systems not noted in ROS Statement are negative. Past Medical History Past Medical History: Coronary Artery Disease (CAD), Diabetes Mellitus, GERD/ Reflux, Hyperlipidemia, Hypertension, Liver Disease, Myocardial Infarction (DE) , Osteoarthritis (OA) Additional Past Medical History / Comment(s): Coronary artery disease, hypertension, diabetes mellitus, hyperlipidemia, recent fall following an episode of syncope during which the patient sustained a left humeral fracture, episodes of dysphagia, chronic anemia, history of small bowel obstruction related to a ultimately turned out to be benign and was resected, chronic renal failure with stage III kidney disease, CHF with diastolic dysfunction with an ejection fraction of 55-60% based on previous echocardiogram along with aortic stenosis, previous carotid bypass surgery, osteoarthritis Last Myocardial Infarction Date:: 2009 History of Any Multi-Drug Resistant Organisms: None Reported Past Surgical History: Adenoidectomy, Cholecystectomy, Coronary Bypass/CABG, Heart Catheterization, Tonsillectomy, Tubal Ligation Additional Past Surgical History / Comment(s): 2009 Cabg in [place], 04/16/10 colonoscopy with benign polypectomy, liver surgery-unkn what type, cataract removal bilaterally. Past Anesthesia/Blood Transfusion Reactions: Postoperative Nausea & Vomiting ( PONV) Past Psychological History: Depression Additional Psychological History / Comment(s): Pt has history of depression but states that was in the past and no longer an issue for her. She is . She lives alone. She uses a walker to ambulate. She does not drive-her family take her places. Smoking Status: Never smoker Past Alcohol Use History: None Reported Past Drug Use History: None Reported - Past Family History Father Family Medical History: Diabetes Mellitus Additional Family Medical History / Comment(s): Pt believes her father was diabetic. He had toes amputated. He in his 90s Mother Family Medical History: Unable to Obtain Additional Family Medical History / Comment(s): Pt knows that her mother was unhealthy but does not know what health problems she might have had. she at 87yrs. General Exam General appearance: alert, in no apparent distress Head exam: Present: atraumatic, normocephalic, normal inspection Eye exam: Present: normal appearance, PERRL, EOMI. Absent: scleral icterus, conjunctival injection, periorbital swelling ENT exam: Present: normal exam, mucous membranes moist Neck exam: Present: normal inspection. Absent: tenderness, meningismus, lymphadenopathy Respiratory exam: Present: normal lung sounds bilaterally. Absent: respiratory distress, wheezes, rales, rhonchi, stridor Cardiovascular Exam: Present: regular rate, normal rhythm, normal heart sounds. Absent: systolic murmur, diastolic murmur, rubs, gallop, clicks GI/Abdominal exam: Present: soft, normal bowel sounds. Absent: distended, tenderness, guarding, rebound, rigid Extremities exam: Present: normal inspection, full ROM, normal capillary refill. Absent: tenderness, pedal edema, joint swelling, calf tenderness Back exam: Present: normal inspection Neurological exam: Present: alert, oriented X3, CN II-XII intact Psychiatric exam: Present: normal affect, normal mood Skin exam: Present: warm, dry, intact, normal color. Absent: rash Course Vital Signs 08/13/16 08/13/16 08/13/16 02:56 03:14 03:23 Temperature 100.0 F H Pulse Rate 86 73 73 Respiratory 24 Rate Blood Pressure 116/53 O2 Sat by Pulse 98 Oximetry Medical Decision Making - Medical Decision Making Patient complains of shortness of breath. Her hemoglobin is low. It has dropped several grams from prior testing. She has a GI bleed. She has extremely elevated BNP. She has evidence of heart failure and her chest x-ray. Her troponin is positive. She will require admission to the hospital. - Lab Data Result diagrams: 08/13/16 03:15 Lab Results 08/13/16 08/13/16 08/13/16 Range/Units 03:15 03:15 03:15 WBC 13.0 H (3.8-10.6) k/uL RBC 3.02 L (3.80-5.40) m/uL Hgb 8.6 L (11.4-16.0) gm/dL Hct 27.7 L (34.0-46.0) % MCV 91.7 (80.0-100.0) fL MCH 28.6 (25.0-35.0) pg MCHC 31.2 (31.0-37.0) g/dL RDW 14.8 (11.5-15.5) % Plt Count 252 (150-450) k/uL Neutrophils % 78 % Lymphocytes % 10 % Monocytes % 8 % Eosinophils % 0 % Basophils % 0 % Neutrophils # 10.1 H (1.3-7.7) k/uL Lymphocytes # 1.3 (1.0-4.8) k/uL Monocytes # 1.1 H (0-1.0) k/uL Eosinophils # 0.0 (0-0.7) k/uL Basophils # 0.0 (0-0.2) k/uL Hypochromasia Marked PT (9.0-12.0) sec INR (<1.1) APTT (22.0-30.0) sec Magnesium 1.9 (1.6-2.3) mg/dL Total Creatine Kinase 448 H (30-135) U/L CK-MB (CK-2) 1.5 (0.0-2.4) ng/mL CK-MB (CK-2) Rel Index 0.3 Troponin I 2.100 H* (0.000-0.034) ng/mL NT-Pro-B Natriuret Pep pg/mL 08/13/16 08/13/16 Range/Units 03:15 03:15 WBC (3.8-10.6) k/uL RBC (3.80-5.40) m/uL Hgb (11.4-16.0) gm/dL Hct (34.0-46.0) % MCV (80.0-100.0) fL MCH (25.0-35.0) pg MCHC (31.0-37.0) g/dL RDW (11.5-15.5) % Plt Count (150-450) k/uL Neutrophils % % Lymphocytes % % Monocytes % % Eosinophils % % Basophils % % Neutrophils # (1.3-7.7) k/uL Lymphocytes # (1.0-4.8) k/uL Monocytes # (0-1.0) k/uL Eosinophils # (0-0.7) k/uL Basophils # (0-0.2) k/uL Hypochromasia PT 12.5 H (9.0-12.0) sec INR 1.3 (<1.1) APTT 24.3 (22.0-30.0) sec Magnesium (1.6-2.3) mg/dL Total Creatine Kinase (30-135) U/L CK-MB (CK-2) (0.0-2.4) ng/mL CK-MB (CK-2) Rel Index Troponin I (0.000-0.034) ng/mL NT-Pro-B Natriuret Pep [id number] pg/mL 08/13/16 04:50 twelve-lead EKG is obtained, interpreted by me showing ventricular rate 77 bpm, normal [place] interval and QRS complexes, no ST elevation or depression, interpreted by me as normal sinus rhythm. Disposition Clinical Impression: Heart failure, NSTEMI (non-ST elevated myocardial infarction) Disposition: ADMITTED IP TO THIS HOSP Condition: Serious Time of Disposition: 04:51
[2016-08-13] MEDS ORDERED: MORPHINE SULFATE 4 MG/ML SYRINGE IV STA (05:10)
--- NOTE | 2016-08-13 05:18 | XR ---
EXAM: XR Chest, 2 Views CLINICAL HISTORY: Reason: Chest Pain TECHNIQUE: Frontal and lateral views of the chest. COMPARISON: 06/02/16 chest x-ray, 05/31/15 CT FINDINGS: Lungs: Mild left basilar atelectasis or airspace disease. Pleural space: Query small left pleural effusion Heart: Median sternotomy as on prior. CABG. Cardiomegaly. Normal pulmonary vasculature. Mediastinum: Unremarkable. Bones/joints: Left proximal humerus fracture was seen on prior imaging, however, now with new rounded lytic appearance within the proximal fragment. Vasculature: Aortic calcifications. IMPRESSION: 1. Mild left basilar atelectasis or airspace disease. Possible small left pleural effusion. 2. Left proximal humerus fracture was seen on prior imaging, however, now with new rounded lytic appearance within the proximal fragment. Correlate clinically with other imaging for underlying lytic lesion and pathologic fracture versus other etiology.
[2016-08-13 05:30] LABS: Appearance,Urine Cloudy (Clear); Bacteria,Urine Rare /hpf; Bilirubin,Urine Negative (Negative); Glucose,Urine (UA) Negative (Negative); Ketones,Urine Negative (Negative); Leukocyte Esterase,Urine Moderate (Negative); Mucus,Urine Rare /hpf; Nitrite,Urine Negative (Negative); Particle Count 3961; Protein,Urine Negative (Negative); RBC,Urine 2 /hpf (0-5); Specific Gravity,Urine 1.014 (1.001-1.035); Squamous Epithelial Cell,Urine <1 /hpf (0-4); UA Billing (MACRO vs. MICRO) MICRO; Urobilinogen,Urine <2.0 mg/dL (<2.0); WBC,Urine 23 /hpf (0-5)
[2016-08-13] MEDS: ALPRAZolam 0.25 MG TAB PO PRN ×2 (08:49→22:26)
[2016-08-13] MEDS ORDERED: LISINOPRIL 5 MG TAB PO SCH (09:00)
[2016-08-13] MEDS ORDERED: CLOPIDOGREL 75 MG TAB PO SCH (09:00)
[2016-08-13] MEDS ORDERED: FAMOTIDINE 20 MG TAB PO SCH ×2 (09:00)
[2016-08-13] MEDS ORDERED: ACETAMINOPHEN TAB 325 MG TAB PO PRN (09:05)
[2016-08-13] MEDS: FUROSEMIDE 40 MG TAB PO SCH (10:01)
[2016-08-13] MEDS: HYDROmorphone 1 MG/ML 1 ML SYRINGE IVP PRN ×3 (13:06→22:26)
[2016-08-13] MEDS: PANTOPRAZOLE 40 MG/10 ML VIAL IVP SCH (13:07)
[2016-08-13] MEDS ORDERED: RX INFO: IV CONTRAST WAS GIVEN 1 EACH MISC MISCELLANE PRN (13:13)
--- NOTE | 2016-08-13 13:45 | P.HPIM ---
History of Present Illness H&P Date: 08/13/16 Chief Complaint: Chest pain and shortness of breath This is a 80-year-old female, patient of [facility]. She has a known past medical history of myocardial infarction and three-vessel coronary artery bypass graft, coronary artery disease, hyperlipidemia, hypertension, diabetes, chronic kidney disease and dementia. Also history of anemia with recent EGD and May 2016 revealing gastritis colonoscopy was several years ago. Patient reports that she has not been feeling well over the last few days. And yesterday started having chest pains across her chest radiating up into her neck down her arms. Also is having some shortness of breath and nausea. Patient is also been reporting diarrhea with black stools. She did have some bright red blood about a month ago. On admission her hemoglobin is 8.6, white count 13 troponin elevated at 2.100 BNP elevated at 13,400. She did have a temp of 100.5. She has been admitted to the hospital for a possible non- ST elevated ND and congestive heart failure. Cardiology is consulted. She's also reporting several episodes of diarrhea and stools have been black. Stool for occult blood is been ordered as well as check for C. diff. She has evidence of urinary tract infection and has been started on IV Rocephin. Review of Systems please refer to HPI otherwise unremarkable Past Medical History Past Medical History: Coronary Artery Disease (CAD), Diabetes Mellitus, GERD/ Reflux, Hyperlipidemia, Hypertension, Liver Disease, Myocardial Infarction (ND) , Osteoarthritis (OA) Additional Past Medical History / Comment(s): Coronary artery disease, hypertension, diabetes mellitus, hyperlipidemia, recent fall following an episode of syncope during which the patient sustained a left humeral fracture, episodes of dysphagia, chronic anemia, history of small bowel obstruction related to a ultimately turned out to be benign and was resected, chronic renal failure with stage III kidney disease, CHF with diastolic dysfunction with an ejection fraction of 55-60% based on previous echocardiogram along with aortic stenosis, previous carotid bypass surgery, osteoarthritis Last Myocardial Infarction Date:: 2009 History of Any Multi-Drug Resistant Organisms: None Reported Past Surgical History: Adenoidectomy, Cholecystectomy, Coronary Bypass/CABG, Heart Catheterization, Tonsillectomy, Tubal Ligation Additional Past Surgical History / Comment(s): 2009 Cabg in [place], 04/16/10 colonoscopy with benign polypectomy, liver surgery-unkn what type, cataract removal bilaterally. Past Anesthesia/Blood Transfusion Reactions: Postoperative Nausea & Vomiting ( PONV) Past Psychological History: Depression Additional Psychological History / Comment(s): Pt has history of depression but states that was in the past and no longer an issue for her. She is . She lives alone. She uses a walker to ambulate. She does not drive-her family take her places. Patient states no changes to Smoking Status: Never smoker Past Alcohol Use History: None Reported Past Drug Use History: None Reported - Past Family History Father Family Medical History: Diabetes Mellitus Additional Family Medical History / Comment(s): Pt believes her father was diabetic. He had toes amputated. He in his 90s Mother Family Medical History: Unable to Obtain Additional Family Medical History / Comment(s): Pt knows that her mother was unhealthy but does not know what health problems she might have had. she at 87yrs. Medications and Allergies Home Medications Medication Instructions Recorded Confirmed Type Donepezil [Aricept] 10 mg PO HS 02/15/15 08/13/16 History Fenofibrate [Lofibra] 160 mg PO HS 02/15/15 08/13/16 History Pantoprazole Sodium [Protonix] 40 mg PO QA 02/15/15 08/13/16 History Ascorbic Acid [Vitamin C] 500 mg PO HS 05/03/16 08/13/16 History Cetirizine HCl 10 mg PO DAILY PRN 05/03/16 08/13/16 History Cholecalciferol [Vitamin D3] 5,000 unit PO HS 05/03/16 08/13/16 History Clopidogrel [Plavix] 75 mg PO DAILY 05/03/16 08/13/16 History Furosemide [Lasix] 40 mg PO DAILY 05/03/16 08/13/16 History Metoprolol Tartrate [Lopressor] 25 mg PO HS 05/03/16 08/13/16 History Multivitamins, Thera [Multivitamin 1 tab PO HS 05/03/16 08/13/16 History (formulary)] Potassium Chloride ER [K-Dur 10] 10 meq PO HS 05/03/16 08/13/16 History Sennosides [Senna] 8.6 mg PO HS PRN 05/03/16 08/13/16 History Sertraline [Zoloft] 100 mg PO HS 05/03/16 08/13/16 History Nitroglycerin Sl Tabs [Nitrostat] 0.4 mg SUBLINGUAL Q5M PRN 05/30/16 08/13/16 History Ezetimibe [Zetia] 10 mg PO DAILY 08/13/16 08/13/16 History Allergies Allergy/AdvReac Type Severity Reaction Status Date / Time No Known Allergies Allergy Verified 08/13/16 08:10 Physical Exam Vitals: Vital Signs Temp Pulse Pulse Resp BP BP Pulse Ox 08/13/16 11:15 99.3 F 73 18 98/50 98 08/13/16 07:39 100.5 F H 79 22 117/56 99 08/13/16 07:00 84 20 122/60 98 08/13/16 06:00 60 20 116/58 98 08/13/16 05:07 81 20 115/55 99 Intake and Output 08/12/16 08/13/16 08/13/16 22:59 06:59 14:59 Other: Voiding Method Bedpan Weight 70.76 kg Patient Weight 08/14/16 06:59 Weight 70.76 kg Head normocephalic Neck supple Lungs clear to auscultation bilaterally no wheezing or crackles Heart regular rate and rhythm S1-S2, no rub or gallop Abdomen is soft diffuse tenderness positive bowel sounds Extremities no edema Neuro alert and orientated to 3 Results CBC & Chem 7: 08/13/16 03:15 Labs: Abnormal Lab Results - Last 24 Hours (Table) 08/13/16 08/13/16 Range/Units 05:15 09:14 Troponin I 1.590 H* (0.000-0.034) ng/mL Urine Appearance Cloudy H (Clear) Ur Leukocyte Esterase Moderate H (Negative) Urine WBC 23 H (0-5) /hpf Urine Bacteria Rare H (None) /hpf Hyaline Casts 4 H (0-2) /lpf Urine Mucus Rare H (None) /hpf Thrombosis Risk Factor Assmnt - Choose All That Apply Each Factor Represents 1 point: Obesity (BMI >25) Each Risk Factor Represents 3 Points: Age 75 years or older Thrombosis Risk Factor Assessment Total Risk Factor Score: 4 Thrombosis Risk Factor Assessment Level: Moderate Risk Assessment and Plan Plan: 1. Acute non-ST elevated ND with Chest pain with elevated troponins : Patient is been admitted to the sixth floor and cardiology has been consulted. Unable to start IV heparin at this time due to patient's anemia and possible GI bleed. Dr. Uribe has been consulted for critical care 2. abdominal pain with diarrhea: Check stool for C. diff. Check computed tomography scan of the abdomen and pelvis. Consult surgical service 3. Anemia with possible GI bleed: Patient reports having black stools. Hemoglobin 8.6. EGD in May 2016 revealing gastritis no active bleeding. Last colonoscopy several years ago. Consult GI service 4. Urinary tract infection: Check urine culture. Start patient on IV Rocephin 5. History of myocardial infarction with previous three-vessel coronary bypass graft 6.dementia continue Aricept 7. Essential hypertension continue lisinopril metoprolol 8. Hyperlipidemia home medications 9. Possible lytic lesion on left humerus with previous left humerus fracture about 4 months ago. Oncology will be consulted. GI prophylaxis IV Protonix Time with Patient: Greater than 30 (Greater than 50% of the total time spent in counseling and coordination of care.I performed an examination of the patient and discussed their management with the physician Drill Rig Operator Helper. I have reviewed the Physician Drill Rig Operator Helper's notes and agree with the documented findings and plan of care)
[2016-08-13] MEDS: IOHEXOL 350 MG/ML 25 ML BOTTLE (ORAL USE) PO PRN ×2 (14:27→15:36)
[2016-08-13 15:33] LABS: Calcium 8.7 mg/dL (8.4-10.2); Potassium 4.5 mmol/L (3.5-5.1); Total Bilirubin 0.7 mg/dL (0.2-1.3); Total Protein 5.8 g/dL (6.3-8.2)
--- NOTE | 2016-08-13 16:29 | CT ---
EXAMINATION TYPE: CT abdomen pelvis wo con DATE OF EXAM: 08/13/2016 4:16 PM COMPARISON: NONE HISTORY: Generalized abdominal pain with nausea and vomiting. CT DLP: 695.50 mGycm FINDINGS: LUNG BASES: Small basilar effusions and compressive atelectasis identified. There is evidence of card iomegaly. LIVER/GB: Cholecystectomy clips identified. No space-occupying hepatic lesion. PANCREAS: No pancreatic mass identified. No inflammatory process seen. SPLEEN: No evidence for splenomegaly. No intrasplenic lesions seen. ADRENALS: No adrenal nodules identified. No evidence for thickening. KIDNEYS: Atrophic changes of the right kidney. Right-sided renal vascular calcification. No evidence for renal mass. No nephrolithiasis. No hydronephrosis. BOWEL: Appendix not visualized.. No evidence of bowel obstruction. No inflammatory process. Lymph nodes: No evidence for adenopathy greater than 1 cm. Abdominal aorta: Atheromatous changes seen. No evidence for aneurysm. Genital organs: Pelvic ascites is noted. Lobulated appearance of the uterus may reflect underlying le iomyomatous change. No adnexal mass appreciated with certainty. Other: No significant abnormality. IMPRESSION: 1. SMALL BASILAR EFFUSIONS AND COMPRESSIVE ATELECTASIS. 2. ATROPHIC CHANGES OF THE RIGHT KIDNEY. 3. PELVIC ASCITES SMALL IN AMOUNT. 4. PROBABLE MYOMATOUS CHANGE OF THE UTERUS.
--- NOTE | 2016-08-13 16:58 | CONS ---
DATE OF CONSULTATION: This is an 80-year-old female who presented to the emergency department on August 13 with complaints of shortness of breath. Her symptoms have been present for a couple days, getting worse. They had been progressive in nature. She does not take any specific medications for her symptoms. She states that she has not had any recent illness. No sick contacts. Really denies any pain in the chest. No palpitations. No fluttering. No nausea, vomiting. No fever, chills. No diarrhea. She apparently was evaluated in the emergency room and admitted with a diagnosis of heart failure and non-ST segment elevation myocardial infarction. The patient had a chest x-ray that was not entirely compatible with heart failure, had a very high N-terminal proBNP and did have positive troponins. The patient was initially sleeping when I went to the room. When I woke her up, she was in no distress. She was wearing nasal O2. Denies any particular complaints. Medications include Aricept, Lofibra, Protonix, vitamin C, Zyrtec, vitamin D3, Plavix, iron, Lasix, Lopressor, multivitamins, potassium, senna, Zoloft, Tylenol and nitroglycerin. Has also been on lisinopril and Augmentin. ALLERGIES: Denied. Medical history is positive for CAD, diabetes, GERD, hyperlipidemia, hypertension, myocardial infarction, DJD. She also has a history of syncope with a previous left humeral fracture from the fall. Has a history of small bowel obstruction, chronic anemia, dysphagia, and stage III chronic kidney disease. Also suffers from heart failure, mostly diastolic in nature. She also some valvular heart disease in the form of aortic stenosis. Surgical history includes adenoidectomy, cholecystectomy bypass grafting, heart catheterization, tonsillectomy, tubal ligation, colonoscopy, and cataract surgery. Social history is positive for occasional alcohol use. She is a lifelong nonsmoker. No significant occupational history. No illicit drug use. Family history is positive for diabetes with diabetic and organ involvement. Family history is otherwise unremarkable. REVIEW OF SYSTEMS: CONSTITUTIONAL: Negative. NEUROLOGICAL: Negative. HEENT: Negative. CARDIOVASCULAR: Negative. PULMONARY: Shortness of breath. GI/: Negative. RHEUMATOLOGICAL/IMMUNOLOGIC: Negative. ENDOCRINOLOGIC: Negative. Vital signs include a temperature of 99.3, heart rate 73, respiratory rate 18, blood pressure 117/56 with a mean of 76, 2 liters of saturation 98%. Appears in no acute distress. HEENT examination is grossly unremarkable. Mucous membranes are moist. No oral lesions. Nasal O2 in place. Neck is supple. Full range of motion. No adenopathy or thyromegaly. Neck veins are flat. Cardiovascular reveals distant heart sounds. S1, S2 normal. No distinct murmur noted. No S3, S4. Lungs reveal a few scattered bibasilar crackles. All in all lung sounds are not unreasonable. No wheezes. No rhonchi. Abdomen is soft. Bowel sounds are heard. No masses or tenderness. Skin is without rash or lesion. Extremities reveal no cyanosis, clubbing or edema. Neurologic examination is nonfocal. Chest x-ray shows borderline cardiomegaly, not much else in the way of abnormality though. Maybe some minimal infiltrate or atelectasis at the bases. Lab data reveals a white count 13, hemoglobin 8.6, hematocrit 27.7, platelet count 252,000. PT 12.5, INR 1.3, PTT 24.3. CK was 448. Troponins were 2.1 and 1.590. N-terminal proBNP was 13,400. Urine suggests a possibility of a bladder infection. Her urine was cloudy. There is moderate positive leukocyte esterase, wbc's are 23, bacteria were rare. Medications are reviewed. She is on Xanax, Tylenol, vitamin D, Aricept, Zetia, Lofibra, Lasix, Dilaudid, Xopenex and Atrovent, lisinopril, metoprolol, morphine, multiple vitamins, Narcan, Zofran, Protonix, calcium replacement, Zoloft, vancomycin and ceftriaxone. ASSESSMENT: 1. Non- ST segment elevation myocardial infarction. 2. Heart failure secondary to #1. 3. History of coronary artery disease. 4. Diabetes. 5. Gastroesophageal reflux disease. 6. Hyperlipidemia. 7. Hypertension. 8. Previous history of myocardial infarction. 9. Previous bypass grafting. 10. Recent left humeral fracture. 11. Aortic stenosis. PLAN: The patient seemed to be relatively well. She is on appropriate medications. She is on ceftriaxone for possible urinary tract infection. Will continue to follow. No additional recommendations are made. Cardiology sort of running the show at this time given the non- ST segment elevation myocardial infarction and heart failure. Again, will continue to follow.
[2016-08-13] MEDS ORDERED: IV VANCOMYCIN PER PHARMACY 1 EACH MISC MISCELLANE PRN (19:00)
[2016-08-13] MEDS ORDERED: POTASSIUM CHLORIDE ER 10 MEQ TAB.ER.PRT PO SCH (21:00)
[2016-08-13] MEDS ORDERED: VANCOMYCIN 1,250 MG in SODIUM CHLORIDE 0.9% 250 ML IVPB SCH (22:00)
[2016-08-13] MEDS: METOPROLOL TARTRATE 12.5 MG TAB PO SCH (22:18)
[2016-08-13] MEDS: CHOLECALCIFEROL 1,000 UNIT TAB PO SCH (22:19)
[2016-08-13] MEDS: DONEPEZIL 10 MG TAB PO SCH (22:19)
[2016-08-13] MEDS: FENOFIBRATE 160 MG TAB PO SCH (22:20)
[2016-08-13] MEDS: MULTIVITAMINS, THERA 1 EACH TAB PO SCH (22:20)
[2016-08-13] MEDS: SERTRALINE 100 MG TAB PO SCH (22:20)
[2016-08-14 06:29] LABS: Calcium 8.4 mg/dL (8.4-10.2); Potassium 5.1 mmol/L (3.5-5.1); Total Bilirubin 0.5 mg/dL (0.2-1.3); Total Protein 5.3 g/dL (6.3-8.2)
[2016-08-14 06:33] LABS: Basophils % (A) 0 %; CH 26.7; CHCM 28.6; Eosinophils % (A) 0 %; HCT 24.6 % (34.0-46.0); HDW 2.83; Hypochromasia Marked; Luc # (Auto) 0.35; Luc % (Auto) 4; Lymphocytes # (A) 0.7 k/uL (1.0-4.8); Lymphocytes % (A) 8 %; MCH 27.1 pg (25.0-35.0); MCHC 28.9 g/dL (31.0-37.0); Mean Platelet Volume 7.4; Monocytes # (A) 0.8 k/uL (0-1.0); Monocytes % (A) 9 %; Neutrophils # (A) 6.8 k/uL (1.3-7.7); Neutrophils % (A) 78 %; RBC 2.62 m/uL (3.80-5.40); RDW 14.6 % (11.5-15.5); WBC 8.6 k/uL (3.8-10.6); WBC (Perox) 9.18
[2016-08-14] MEDS: HYDROmorphone 1 MG/ML 1 ML SYRINGE IVP PRN ×2 (06:38→23:20)
[2016-08-14 06:42] LABS: HGB 7.1 gm/dL (11.4-16.0)
[2016-08-14] MEDS ORDERED: PANTOPRAZOLE 40 MG TABLET PO SCH (07:30)
[2016-08-14] MEDS: PANTOPRAZOLE 40 MG/10 ML VIAL IVP SCH (08:15)
[2016-08-14] MEDS: FUROSEMIDE 40 MG TAB PO SCH (08:15)
[2016-08-14] MEDS: EZETIMIBE 10 MG TAB PO SCH (08:15)
--- NOTE | 2016-08-14 09:18 | P.CONS ---
History of Present Illness - Reason for Consult Consult date: 08/14/16 anemia Requesting physician: Dana Matt - History of Present Illness 80-year-old female patient Dr. Irving with a past medical history fall 3 months ago with fractured left humerus, small bowel resection secondary to adhesions and not malignant tumor in 2015, CAD/CABG, CHF, OK, diabetes mellitus , chronic kidney disease, depression, GERD, hyperlipidemia, and osteoarthritis. Consultation requested for anemia. Admitted with generalized weakness for the last few days with chest pain and shortness of breath nausea. Hemoglobin 8.6 decreased to 7.1 this morning. White count 13 currently 8.6. MCV 94. Platelet 215. INR 1.3. BUN 19. Creatinine 0.9. Troponin 2.1. ProBNP 13,400. Blood cultures preliminarily presumptive staphylococcus aureus. T-max 100.5. Urinalysis moderate leukocyte esterase. Denies overt bleeding such as hematemesis hematochezia or melena. Nursing staff reports no episodes of active GI bleeding. Computed tomography scan abdomen and pelvis without contrast reported small amount of pelvic ascites probable myomatous change of the uterus. Chest x-ray reported small left pleural effusion and left proximal humerus fracture seen on prior imaging however new rounded lytic appearance within the proximal fragment. Underlying lytic lesion/pathologic fracture versus other etiology. Denies NSAIDs or alcohol. Home medications prior to admission reviewed; Plavix daily no aspirin. Review of medical records average hemoglobin over the last few months 9-10. Reports left arm pain denies abdominal pain. EGD May 2016 for evaluation of coffee-ground emesis and anemia with findings of diffuse mild gastritis no evidence of peptic ulcer disease or active bleeding. Colonoscopy 2010 with polypectomy. Review of Systems Constitutional: Denies fever, chills, sweats, weight gain, or loss. HEENT: Negative for migraines, blurred vision or loss, earaches, drainage, tinnitus, oral mucosal lesions, dysphagia, or odynophagia. CARDIAC: CAD. Hyperlipidemia. Hypertension. CHF. CABG. OK. Negative for chest pain, arrhythmias, or palpitation. RESPIRATORY: Negative for shortness of breath, hemoptysis, cough, or sputum production. GI: See HPI for pertinent findings. : Negative for hematuria, urgency, frequency, polyuria, or dysuria. GYNc: Negative vaginal discharge. MUSCULOSKELETAL: Negative for muscle aches, swelling, arthritis, and arthralgias. NEUROLOGIC: Negative for stroke or TIA. Nephrology: Chronic kidney disease stage III. ENDOCRINE: Negative for thyroid problems. Diabetes mellitus. SKIN: Negative for rash or itching. PSYCHIATRIC: History of depression. Denies anxiety All systems: negative (See HPI) Past Medical History Past Medical History: Coronary Artery Disease (CAD), Diabetes Mellitus, GERD/ Reflux, Hyperlipidemia, Hypertension, Liver Disease, Myocardial Infarction (OK) , Osteoarthritis (OA) Additional Past Medical History / Comment(s): Coronary artery disease, hypertension, diabetes mellitus, hyperlipidemia, recent fall following an episode of syncope during which the patient sustained a left humeral fracture, episodes of dysphagia, chronic anemia, history of small bowel obstruction related to a ultimately turned out to be benign and was resected, chronic renal failure with stage III kidney disease, CHF with diastolic dysfunction with an ejection fraction of 55-60% based on previous echocardiogram along with aortic stenosis, previous carotid bypass surgery, osteoarthritis Last Myocardial Infarction Date:: 2009 History of Any Multi-Drug Resistant Organisms: None Reported Past Surgical History: Adenoidectomy, Cholecystectomy, Coronary Bypass/CABG, Heart Catheterization, Tonsillectomy, Tubal Ligation Additional Past Surgical History / Comment(s): 2009 Cabg in [place], 04/16/10 colonoscopy with benign polypectomy, liver surgery-unkn what type, cataract removal bilaterally. Past Anesthesia/Blood Transfusion Reactions: Postoperative Nausea & Vomiting ( PONV) Past Psychological History: Depression Additional Psychological History / Comment(s): Pt has history of depression but states that was in the past and no longer an issue for her. She is . She lives alone. She uses a walker to ambulate. She does not drive-her family take her places. Patient states no changes to Smoking Status: Never smoker Past Alcohol Use History: None Reported Past Drug Use History: None Reported - Past Family History Father Family Medical History: Diabetes Mellitus Additional Family Medical History / Comment(s): Pt believes her father was diabetic. He had toes amputated. He in his 90s Mother Family Medical History: Unable to Obtain Additional Family Medical History / Comment(s): Pt knows that her mother was unhealthy but does not know what health problems she might have had. she at 87yrs. Medications and Allergies Home Medications Medication Instructions Recorded Confirmed Type Donepezil [Aricept] 10 mg PO HS 02/15/15 08/13/16 History Fenofibrate [Lofibra] 160 mg PO HS 02/15/15 08/13/16 History Pantoprazole Sodium [Protonix] 40 mg PO QAM 02/15/15 08/13/16 History Ascorbic Acid [Vitamin C] 500 mg PO HS 05/03/16 08/13/16 History Cetirizine HCl 10 mg PO DAILY PRN 05/03/16 08/13/16 History Cholecalciferol [Vitamin D3] 5,000 unit PO HS 05/03/16 08/13/16 History Clopidogrel [Plavix] 75 mg PO DAILY 05/03/16 08/13/16 History Furosemide [Lasix] 40 mg PO DAILY 05/03/16 08/13/16 History Metoprolol Tartrate [Lopressor] 25 mg PO HS 05/03/16 08/13/16 History Multivitamins, Thera [Multivitamin 1 tab PO HS 05/03/16 08/13/16 History (formulary)] Potassium Chloride ER [K-Dur 10] 10 meq PO HS 05/03/16 08/13/16 History Sennosides [Senna] 8.6 mg PO HS PRN 05/03/16 08/13/16 History Sertraline [Zoloft] 100 mg PO HS 05/03/16 08/13/16 History Nitroglycerin Sl Tabs [Nitrostat] 0.4 mg SUBLINGUAL Q5M PRN 05/30/16 08/13/16 History Ezetimibe [Zetia] 10 mg PO DAILY 08/13/16 08/13/16 History Allergies Allergy/AdvReac Type Severity Reaction Status Date / Time No Known Allergies Allergy Verified 08/13/16 08:10 Physical Exam Vitals: Vital Signs Temp Pulse Resp BP Pulse Ox 08/14/16 08:00 97.6 F 72 88/49 100 08/14/16 04:00 76 19 90/51 98 08/14/16 00:00 72 19 90/51 96 08/13/16 20:00 97.7 F 78 19 116/55 98 08/13/16 16:00 97.6 F 76 22 112/55 99 08/13/16 11:15 99.3 F 73 18 98/50 98 Intake and Output 05/11/17 05/12/17 05/12/17 22:59 06:59 14:59 Intake Total 490 Balance 490 Intake: IV 240 ns 240 Intake, IV Titration 250 Amount Vancomycin 1,250 mg In 250 Sodium Chloride 0.9% 250 ml @ 125 mls/hr IVPB Q36H [facility] Rx#:[id number] Other: Voiding Method Bedpan Bedpan Weight 74.5 kg General appearance: The patient is weak and lethargic drifting in and out a conversation secondary to recent pain medications but easy to arouse and appropriate conversation. HET: Head is normocephalic and atraumatic. Pupils are equal and reactive. Oropharynx is clear without lesions. Neck: Supple without lymphadenopathy. Trachea midline. Heart: S1 S2. Regular rate and rhythm. Lungs: No crackles or wheezes are heard. Abdomen: Soft, nontender, nondistended with bowel sounds. No peritoneal signs. No palpable organomegaly or masses. Extremities: Limited mobility left upper extremity with pain. Left radial +3. Brisk cap refill. Normal skin color and turgor. No cyanosis, rash, ulceration , clubbing, or edema. Radial and pedal pulses are 2/4 bilaterally. Neurological: No focal deficits. Strength and sensation are grossly intact. Results CBC & Chem 7: 08/14/16 05:58 08/14/16 05:58 Labs: Abnormal Lab Results - Last 24 Hours (Table) 08/13/16 08/13/16 08/13/16 Range/Units 09:14 12:58 15:13 RBC (3.80-5.40) m/uL Hgb (11.4-16.0) gm/dL Hct (34.0-46.0) % MCHC (31.0-37.0) g/dL Lymphocytes # (1.0-4.8) k/uL Sodium 132 L (137-145) mmol/L Carbon Dioxide 20 L (22-30) mmol/L BUN 32 H (7-17) mg/dL Creatinine 1.27 H (0.52-1.04) mg/dL Glucose 182 H (74-99) mg/dL AST 46 H (14-36) U/L Troponin I 1.590 H* 1.370 H* (0.000-0.034) ng/mL Total Protein 5.8 L (6.3-8.2) g/dL Albumin 3.2 L (3.5-5.0) g/dL 08/14/16 08/14/16 Range/Units 05:58 05:58 RBC 2.62 L (3.80-5.40) m/uL Hgb 7.1 L D (11.4-16.0) gm/dL Hct 24.6 L (34.0-46.0) % MCHC 28.9 L (31.0-37.0) g/dL Lymphocytes # 0.7 L (1.0-4.8) k/uL Sodium 131 L (137-145) mmol/L Carbon Dioxide 18 L (22-30) mmol/L BUN 49 H (7-17) mg/dL Creatinine 2.24 H (0.52-1.04) mg/dL Glucose 157 H (74-99) mg/dL AST 39 H (14-36) U/L Troponin I (0.000-0.034) ng/mL Total Protein 5.3 L (6.3-8.2) g/dL Albumin 2.9 L (3.5-5.0) g/dL CT scan - abdomen: report reviewed (Reviewed by Dr. Santiago.) Assessment and Plan Plan: 1. Normocytic hypochromic anemia suspect component of acute blood loss possible GI bleed without overt bleeding at this time. 2. History of recent GI bleed anemia status post EGD May 2016 with findings of mild diffuse gastritis. Colonoscopy 2011 polypectomy. 3. Bacteremia with presumptive Staphylococcus aureus blood cultures. 4. Status post fall 3 months ago with possible lytic lesion left humerus. Cannot rule out underlying malignancy. 5. Non-ST elevated OK. 6. Congestive heart failure. 7. Fever possible UTI. Plan: 1. Hemoccult stool testing requested with additional stool studies. 2. Observe for overt GI bleeding. Antiplatelet medications on hold. 3. Continue to monitor CBC. Transfuse as indicated. 4. IV Protonix 40 mg daily. 5. Oncology referral. 6. Colonoscopy contingent on clinical course at this time patient is profoundly weak with moderate left upper extremity pain which would make it difficult to proceed with bowel prep at this time. We will observe closely and decide timing of inpatient colonoscopy if necessary. For now we'll obtain iron indices and follow with you. Thank you for this kind referral and the opportunity to participate in the care of your patient. This consultation was discussed with Dr. Santiago. The impression and plan of care have been directed as dictated.
[2016-08-14] MEDS ORDERED: IV VANCOMYCIN PER PHARMACY 1 EACH MISC MISCELLANE PRN (09:24)
[2016-08-14] MEDS ORDERED: FUROSEMIDE 10 MG/ML 2 ML VIAL IV ONE (09:27)
--- NOTE | 2016-08-14 10:35 | P.CRDCN ---
History of Present Illness Consult date: 08/14/16 Requesting physician: Yuan Guthrie Consult reason: congestive heart failure Chief complaint: Malaise and chest pain History of present illness: This is an 80-year-old female with known history of prior myocardial infarction and bypass surgery, hypertension, diabetes, hyperlipidemia, chronic kidney disease, anemia with recent EGD in May that revealed gastritis, colonoscopy was several years ago. Patient also has history of mild dementia. She presented to the hospital with symptoms of chest pain which radiated across the chest, up into her neck and down both arms. She was also experiencing associated shortness of breath and nausea. According to the patient shes been having frequent diarrhea stools as well as black stool. HemoGlobin on admission 8.6, 7.1 this morning. Potassium 4.5 on admission, 5.1 this morning. Creatinine 1.2 on admission, 2.2 this morning. BNP level 13,400. Troponins 2.1, 1.5, 1.3. Albumin 2.9. UTI. X-ray reveals mild left basilar atelectasis. Possible small left pleural effusion. Left proximal humerus fracture. CAT scan reveals small basilar effusions and compressive atelectasis. Atrophic changes of the right kidney. Pelvic ascites small. At the time of my examination this morning, patient is in significant pain involving her left arm. She denies any chest pain at present, lying flat in bed at the time of my examination. Is noted to have a temperature of 100.0 on admission. B/P this morning 88/50 with a heart rate in the 70s. Past Medical History Past Medical History: Coronary Artery Disease (CAD), Diabetes Mellitus, GERD/ Reflux, Hyperlipidemia, Hypertension, Liver Disease, Myocardial Infarction ([place]) , Osteoarthritis (OA) Additional Past Medical History / Comment(s): Coronary artery disease, hypertension, diabetes mellitus, hyperlipidemia, recent fall following an episode of syncope during which the patient sustained a left humeral fracture, episodes of dysphagia, chronic anemia, history of small bowel obstruction related to a ultimately turned out to be benign and was resected, chronic renal failure with stage III kidney disease, CHF with diastolic dysfunction with an ejection fraction of 55-60% based on previous echocardiogram along with aortic stenosis, previous carotid bypass surgery, osteoarthritis Last Myocardial Infarction Date:: 2009 History of Any Multi-Drug Resistant Organisms: None Reported Past Surgical History: Adenoidectomy, Cholecystectomy, Coronary Bypass/CABG, Heart Catheterization, Tonsillectomy, Tubal Ligation Additional Past Surgical History / Comment(s): 2010 Cabg in [place], 04/16/10 colonoscopy with benign polypectomy, liver surgery-unkn what type, cataract removal bilaterally. Past Anesthesia/Blood Transfusion Reactions: Postoperative Nausea & Vomiting ( PONV) Past Psychological History: Depression Additional Psychological History / Comment(s): Pt has history of depression but states that was in the past and no longer an issue for her. She is . She lives alone. She uses a walker to ambulate. She does not drive-her family take her places. Patient states no changes to Smoking Status: Never smoker Past Alcohol Use History: None Reported Past Drug Use History: None Reported - Past Family History Father Family Medical History: Diabetes Mellitus Additional Family Medical History / Comment(s): Pt believes her father was diabetic. He had toes amputated. He in his 90s Mother Family Medical History: Unable to Obtain Additional Family Medical History / Comment(s): Pt knows that her mother was unhealthy but does not know what health problems she might have had. she at 87yrs. Medications and Allergies Home Medications Medication Instructions Recorded Confirmed Type Donepezil [Aricept] 10 mg PO HS 02/15/15 08/13/16 History Fenofibrate [Lofibra] 160 mg PO HS 02/15/15 08/13/16 History Pantoprazole Sodium [Protonix] 40 mg PO QAM 02/15/15 08/13/16 History Ascorbic Acid [Vitamin C] 500 mg PO HS 05/03/16 08/13/16 History Cetirizine HCl 10 mg PO DAILY PRN 05/03/16 08/13/16 History Cholecalciferol [Vitamin D3] 5,000 unit PO HS 05/03/16 08/13/16 History Clopidogrel [Plavix] 75 mg PO DAILY 05/03/16 08/13/16 History Furosemide [Lasix] 40 mg PO DAILY 05/03/16 08/13/16 History Metoprolol Tartrate [Lopressor] 25 mg PO HS 05/03/16 08/13/16 History Multivitamins, Thera [Multivitamin 1 tab PO HS 05/03/16 08/13/16 History (formulary)] Potassium Chloride ER [K-Dur 10] 10 meq PO HS 05/03/16 08/13/16 History Sennosides [Senna] 8.6 mg PO HS PRN 05/03/16 08/13/16 History Sertraline [Zoloft] 100 mg PO HS 05/03/16 08/13/16 History Nitroglycerin Sl Tabs [Nitrostat] 0.4 mg SUBLINGUAL Q5M PRN 05/30/16 08/13/16 History Ezetimibe [Zetia] 10 mg PO DAILY 08/13/16 08/13/16 History Allergies Allergy/AdvReac Type Severity Reaction Status Date / Time No Known Allergies Allergy Verified 08/13/16 08:10 Physical Exam Vitals: Vital Signs Temp Pulse Resp BP Pulse Ox 08/14/16 08:00 97.6 F 72 88/49 100 08/14/16 04:00 76 19 90/51 98 08/14/16 00:00 72 19 90/51 96 08/13/16 20:00 97.7 F 78 19 116/55 98 08/13/16 16:00 97.6 F 76 22 112/55 99 08/13/16 11:15 99.3 F 73 18 98/50 98 Intake and Output 08/13/16 08/14/16 08/14/16 22:59 06:59 14:59 Intake Total 490 Balance 490 Intake: IV 240 ns 240 Intake, IV Titration 250 Amount Vancomycin 1,250 mg In 250 Sodium Chloride 0.9% 250 ml @ 125 mls/hr IVPB Q36H [facility] Rx#:[id number] Other: Voiding Method Bedpan Bedpan Weight 74.5 kg PHYSICAL EXAMINATION: HEENT: Head is atraumatic, normocephalic. Pupils equal, round. Neck is supple. There is elevated jugular venous pressure. HEART EXAMINATION: Heart S1 and S2 systolic murmur is heard. CHEST EXAMINATION: Lungs reveal crackles to bilateral bases. ABDOMEN: Soft, nontender. Bowel sounds are heard. No organomegaly noted. EXTREMITIES: 2+ peripheral pulses with trace evidence of peripheral edema and no calf tenderness noted. Significant pain in the left arm. NEUROLOGIC patient is awake, alert and oriented -3. . Results 08/14/16 05:58 08/14/16 05:58 Cardiac Enzymes 08/13/16 08/13/16 08/13/16 Range/Units 09:14 12:58 15:13 AST 46 H (14-36) U/L Troponin I 1.590 H* 1.370 H* (0.000-0.034) ng/mL 08/14/16 Range/Units 05:58 AST 39 H (14-36) U/L Troponin I (0.000-0.034) ng/mL CBC 08/14/16 Range/Units 05:58 WBC 8.6 (3.8-10.6) k/uL RBC 2.62 L (3.80-5.40) m/uL Hgb 7.1 L D (11.4-16.0) gm/dL Hct 24.6 L (34.0-46.0) % Plt Count 215 (150-450) k/uL Comprehensive Metabolic Panel 08/13/16 08/14/16 Range/Units 12:58 05:58 Sodium 132 L 131 L (137-145) mmol/L Potassium 4.5 5.1 (3.5-5.1) mmol/L Chloride 102 102 (98-107) mmol/L Carbon Dioxide 20 L 18 L (22-30) mmol/L BUN 32 H 49 H (7-17) mg/dL Creatinine 1.27 H 2.24 H (0.52-1.04) mg/dL Glucose 182 H 157 H (74-99) mg/dL Calcium 8.7 8.4 (8.4-10.2) mg/dL AST 46 H 39 H (14-36) U/L ALT 35 28 (9-52) U/L Alkaline Phosphatase 85 82 (38-126) U/L Total Protein 5.8 L 5.3 L (6.3-8.2) g/dL Albumin 3.2 L 2.9 L (3.5-5.0) g/dL Current Medications Generic Name Dose Route Start Last Admin Trade Name Freq PRN Reason Stop Dose Admin Acetaminophen 650 mg 08/13/16 09:05 08/13/16 09:58 Tylenol Tab PO 650 mg Q6HR PRN Administration Fever and/ or Pain Alprazolam 0.25 mg 08/13/16 04:51 08/13/16 08:49 Xanax PO 0.25 mg Q6HR PRN Administration Anxiety Cholecalciferol 5,000 unit 08/13/16 21:00 08/13/16 22:19 Vitamin D3 PO 5,000 unit HS [facility]BA Administration Donepezil HCl 10 mg 08/13/16 21:00 08/13/16 22:19 Aricept PO 10 mg HS [facility]BA Administration Ezetimibe 10 mg 08/14/16 09:00 08/14/16 08:15 Zetia PO 10 mg DAILY [facility] Administration Fenofibrate 160 mg 08/13/16 21:00 08/13/16 22:20 Lofibra PO 160 mg HS ALBA Administration Hydromorphone HCl 0.5 mg 08/13/16 12:59 08/14/16 06:38 Dilaudid IVP 0.5 mg Q3HR PRN Administration Pain Ceftriaxone Sodium 1,000 mg/ 50 mls @ 100 mls/hr 08/13/16 09:30 08/14/16 08: 14 Sodium Chloride IVPB 100 mls/hr Q24HR [facility] Administration Iohexol 25 ml 08/13/16 13:13 08/13/16 15:36 Omnipaque 350 Mg/Ml (For Oral Use) PO 08/14/16 13:13 25 ml Q60M PRN Administration CT Scan Metoprolol Tartrate 12.5 mg 08/13/16 21:00 08/13/16 22:18 Lopressor PO 12.5 mg HS [facility]BA Administration Miscellaneous Information 1 each 08/13/16 13:13 Rx Info: Iv Contrast Was Given MISCELLANE 08/15/16 13:13 DAILY PRN Per Protocol Miscellaneous Information 1 each 08/14/16 09:24 Pharmacy To Dose Iv Vancomycin MISCELLANE DIRECTED PRN Per Protocol Multivitamins 1 each 08/13/16 21:00 08/13/16 22:20 Theragran PO 1 each HS [facility]BA Administration Naloxone HCl 0.2 mg 08/13/16 04:51 Narcan IV Q2M PRN Opioid Reversal Ondansetron HCl 4 mg 08/13/16 04:51 Zofran IVP Q8HR PRN Nausea And Vomiting Pantoprazole Sodium 40 mg 08/13/16 12:00 08/14/16 08:15 Protonix IVP 40 mg DAILY [facility]BA Administration Potassium Chloride 10 meq 08/13/16 21:00 08/13/16 22:20 K-Dur 10 PO 10 meq HS [facility] Administration Sertraline HCl 100 mg 08/13/16 21:00 08/13/16 22:20 Zoloft PO 100 mg HS [facility] Administration Intake and Output 08/13/16 08/14/16 08/14/16 22:59 06:59 14:59 Intake Total 490 Balance 490 Intake: IV 240 ns 240 Intake, IV Titration 250 Amount Vancomycin 1,250 mg In 250 Sodium Chloride 0.9% 250 ml @ 125 mls/hr IVPB Q36H [facility] Rx#:[id number] Other: Voiding Method Bedpan Bedpan Weight 74.5 kg 08/14/16 05:58 08/14/16 05:58 EKG Interpretations (text) EKG shows normal sinus rhythm with a right bundle branch block pattern and ST depression noted in the lateral leads. Assessment and Plan Plan: Assessment and plan #1 non-ST elevation myocardial infarction, patient currently not on aspirin because of low hemoglobin and possible GI bleed. #2 abdominal pain with diarrhea and black stools. #3 urinary tract infection with evidence of fever , blood culture positive for staph aureus #4 history of prior myocardial infarction with previous bypass surgery #5 anemia with possible GI bleed #6 hypertension, patient is currently quite hypotensive #7 hyperlipidemia #8 possible lytic lesion on the left humerus with evidence of left humerus fracture #9 congestive heart failure, unknown LV function at this time. #10 acute on chronic renal failure, Lasix and lisinopril have been placed on hold. Plan We will obtain an echocardiogram with Doppler study. Patient is currently not on aspirin because of anemia and suspected GI bleeding. Continue this area, low dose of metoprolol tartrate if the blood pressure tolerates, hold potassium. Recommend renal consult. GI consult requested. DNP note has been reviewed, I agree with a documented findings and plan of care. Patient was seen and examined.
--- NOTE | 2016-08-14 10:56 | P.PN ---
Subjective This is a 80-year-old female, patient of [facility]. She has a known past medical history of myocardial infarction and three-vessel coronary artery bypass graft, coronary artery disease, hyperlipidemia, hypertension, diabetes, chronic kidney disease and dementia. Also history of anemia with recent EGD and May 2016 revealing gastritis colonoscopy was several years ago. She presents to the hospital with complaints of chest pain, abdominal pain , black stools with episodes of diarrhea. She's found have evidence of a non- ST elevated FL. Not able to be on aspirin or IV heparin at this time due to her significant anemia. Patient is found to have a UTI as well as positive blood cultures growing presumptive staph aureus. She currently on vancomycin and Rocephin. She still complaining of some abdominal pain. Also having some shortness of breath. Hemoglobin is 7.1 today she'll get receive 1 unit of blood. Creatinine has jumped up to 2.24. Nephrology will be consulted Lasix and lisinopril are on hold. Objective - Vital Signs Vital signs: Vital Signs Temp 97.6 F 08/14/16 08:00 Pulse 72 08/14/16 08:00 Resp 22 08/14/16 04:00 BP 88/49 08/14/16 08:00 Pulse Ox 100 08/14/16 08:00 Intake & Output 08/13/16 08/14/16 08/14/16 18:59 06:59 18:59 Intake Total 490 Balance 490 Weight 70.76 kg 74.5 kg Intake: IV 240 ns 240 Intake, IV Titration 250 Amount Vancomycin 1,250 mg In 250 Sodium Chloride 0.9% 250 ml @ 125 mls/hr IVPB [facility] Rx#:[id number] Other: Voiding Method Bedpan Bedpan - Exam Head normocephalic Neck supple Lungs diminished bilaterally Heart regular rate and rhythm S1-S2, no rub or gallop Abdomen is soft nondistended positive bowel sounds diffuse abdominal tenderness Extremities no edema Neuro sleepy pain medication. It will answer questions appropriately - Labs CBC & Chem 7: 08/14/16 05:58 08/14/16 05:58 Labs: Abnormal Lab Results - Last 24 Hours (Table) 08/13/16 08/13/16 08/14/16 Range/Units 12:58 15:13 05:58 RBC 2.62 L (3.80-5.40) m/uL Hgb 7.1 L D (11.4-16.0) gm/dL Hct 24.6 L (34.0-46.0) % MCHC 28.9 L (31.0-37.0) g/dL Lymphocytes # 0.7 L (1.0-4.8) k/uL Sodium 132 L (137-145) mmol/L Carbon Dioxide 20 L (22-30) mmol/L BUN 32 H (7-17) mg/dL Creatinine 1.27 H (0.52-1.04) mg/dL Glucose 182 H (74-99) mg/dL AST 46 H (14-36) U/L Troponin I 1.370 H* (0.000-0.034) ng/mL Total Protein 5.8 L (6.3-8.2) g/dL Albumin 3.2 L (3.5-5.0) g/dL /03/21 Range/Units 05:58 RBC (3.80-5.40) m/uL Hgb (11.4-16.0) gm/dL Hct (34.0-46.0) % MCHC (31.0-37.0) g/dL Lymphocytes # (1.0-4.8) k/uL Sodium 131 L (137-145) mmol/L Carbon Dioxide 18 L (22-30) mmol/L BUN 49 H (7-17) mg/dL Creatinine 2.24 H (0.52-1.04) mg/dL Glucose 157 H (74-99) mg/dL AST 39 H (14-36) U/L Troponin I (0.000-0.034) ng/mL Total Protein 5.3 L (6.3-8.2) g/dL Albumin 2.9 L (3.5-5.0) g/dL Assessment and Plan Plan: 1. Acute non-ST elevated FL with Chest pain with elevated troponins : No IV heparin or aspirin started due to suspected GI bleeding and anemia. Patient is followed by cardiology 2. abdominal pain with diarrhea: Check stool for C. diff. computed tomography scan of the abdomen and pelvis showing atrophic changes of the right kidney, pelvic ascites small amount, probable myomatous changes in uterus. Awaiting surgical consult 3. Anemia with possible GI bleed: Patient reports having black stools. Hemoglobin 8.6 on admission. EGD in May 2016 revealing gastritis no active bleeding. Last colonoscopy several years ago. Hemoglobin is down to 7.1. We'll give 1 unit of blood with Lasix 20 mg IV push after transfusion. Patient has been evaluated by GI service and they're not planning for any endoscopy at this point. 4. Urinary tract infection: Check urine culture. Start patient on IV Rocephin 5. History of myocardial infarction with previous three-vessel coronary bypass graft 6. dementia continue Aricept 7. Essential hypertension continue metoprolol 8. Hyperlipidemia home medications 9. Possible lytic lesion on left humerus with previous left humerus fracture about 4 months ago. Oncology will be consulted. 10. Acute on chronic kidney disease stage III: Creatinine has increased to 2.24. Hold Lasix hold lisinopril. Nephrology has been consulted 11. Bacteremia with blood culture positive for presumptive staph aureus. Continue IV vancomycin pharmacy to dose 12. Congestive heart failure: Awaiting echo and further cardiology recommendations. BNP level 14073 on admission GI prophylaxis IV Protonix I performed an examination of the patient and discussed their management with the physician Customer Success Intern. I have reviewed the Physician Customer Success Intern's notes and agree with the documented findings and plan of care
--- NOTE | 2016-08-14 12:28 | P.PN ---
Subjective Principal diagnosis: ST elevation myocardial infarction, anemia This is a pleasant 80-year-old female patient with a known history of coronary artery disease and presented here with complaints of chest pain radiating across her chest. She was found to have a non-ST segment elevation myocardial infarction. She is also found to be quite anemic and had been having diarrhea and black stools. Blood culture is also positive for presumptive staph aureus. Suspect urinary tract infection as well. Chest x-ray revealed some mild left basilar atelectasis and a small left pleural effusion. She is seen again today in follow-up 08/14/2016 on the selective care unit. She is having discomfort in her left arm she had recently sustained a fall with a humerus fracture. The , she denies any worsening shortness of breath at this time. Cough or congestion. She is maintaining good O2 saturations up to 100% on 2 L/m per nasal cannula. She does have a temperature currently at 99.5. White count 8.6. Hemoglobin 7.1. Creatinine 2.4. Echocardiogram is pending. Objective - Vital Signs Vital signs: Vital Signs Temp 99.0 F 08/14/16 12:06 Pulse 75 08/14/16 12:06 Resp 22 08/14/16 04:00 BP 101/52 08/14/16 12:06 Pulse Ox 99 08/14/16 12:06 Intake & Output 08/13/16 08/14/16 08/14/16 18:59 06:59 18:59 Intake Total 490 120 Output Total 400 Balance 490 -280 Weight 70.76 kg 74.5 kg Intake: IV 240 ns 240 Intake, IV Titration 250 Amount Vancomycin 1,250 mg In 250 Sodium Chloride 0.9% 250 ml @ 125 mls/hr IVPB Q36H [facility] Rx#:[id number] Oral 120 Blood Product 0 Rc As-1 Unit 0 [id number] Output: Urine 400 Other: Voiding Method Bedpan Bedpan - Exam GENERAL EXAM: Weak, pale. EYES: Normal reaction of pupils, equal size. NOSE: Clear with pink turbinates. THROAT: No erythema or exudates. NECK: No masses, no JVD. CHEST: No chest wall deformity. LUNGS: Equal air entry with crackles in the posterior bases more so on the left. CVS: S1 and S2 normal with an audible murmur, regular rhythm. ABDOMEN: No hepatosplenomegaly, normal bowel sounds, no guarding or rigidity. Extremities: There is 1+ peripheral edema. No clubbing, no cyanosis. Peripheral pulses are intact. - Labs CBC & Chem 7: 08/14/16 05:58 08/14/16 05:58 Labs: Abnormal Lab Results - Last 24 Hours (Table) 08/13/16 08/13/16 08/14/16 Range/Units 12:58 15:13 05:58 RBC 2.62 L (3.80-5.40) m/uL Hgb 7.1 L D (11.4-16.0) gm/dL Hct 24.6 L (34.0-46.0) % MCHC 28.9 L (31.0-37.0) g/dL Lymphocytes # 0.7 L (1.0-4.8) k/uL Sodium 132 L (137-145) mmol/L Carbon Dioxide 20 L (22-30) mmol/L BUN 32 H (7-17) mg/dL Creatinine 1.27 H (0.52-1.04) mg/dL Glucose 182 H (74-99) mg/dL AST 46 H (14-36) U/L Troponin I 1.370 H* (0.000-0.034) ng/mL Total Protein 5.8 L (6.3-8.2) g/dL Albumin 3.2 L (3.5-5.0) g/dL Crossmatch 08/14/16 08/14/16 Range/Units 05:58 09:40 RBC (3.80-5.40) m/uL Hgb (11.4-16.0) gm/dL Hct (34.0-46.0) % MCHC (31.0-37.0) g/dL Lymphocytes # (1.0-4.8) k/uL Sodium 131 L (137-145) mmol/L Carbon Dioxide 18 L (22-30) mmol/L BUN 49 H (7-17) mg/dL Creatinine 2.24 H (0.52-1.04) mg/dL Glucose 157 H (74-99) mg/dL AST 39 H (14-36) U/L Troponin I (0.000-0.034) ng/mL Total Protein 5.3 L (6.3-8.2) g/dL Albumin 2.9 L (3.5-5.0) g/dL Crossmatch See Detail Assessment and Plan Plan: Impression: #1 Non-ST segment elevation myocardial infarction. #2 Anemia, suspect possible GI bleed in a patient with recent EGD in May 2016, and last colonoscopy 2010. #3 Sepsis secondary to presumptive Staphylococcus aureus #4 Febrile illness secondary to above and suspected urinary tract infection as well. #5 Acute exacerbation of diastolic congestive heart failure. #6 Hyperlipidemia. #7 Diabetes mellitus. #8 Hypertension. #9 History of coronary artery disease with previous coronary artery bypass grafting. #10 Left upper extremity pain secondary to recent left humeral fracture. #11 Valvular heart disease. Plan: The patient was seen and evaluated by Dr. Uribe. She is currently stable from the pulmonary standpoint. GI services are involved regarding the anemia. Cardiology is on the case as well. We'll continue with her current medications. We'll continue to follow.
[2016-08-14] MEDS ORDERED: MEPERIDINE 50 MG/ML SYRINGE IVP STA (13:06)
[2016-08-14] MEDS ORDERED: ALBUTEROL NEBULIZED 2.5 MG/3 ML INHALATION STA (13:14)
--- NOTE | 2016-08-14 13:29 | XR ---
EXAMINATION TYPE: XR chest 1V portable DATE OF EXAM: 08/14/2016 1:24 PM HISTORY: Decreased O2 sats. REFERENCE: Previous study dated 08/13/2016. FINDINGS: There has been a midline sternotomy. The heart is enlarged. There is bibasilar airspace dis ease which may represent atelectasis or early pneumonia. Both CP angles are obscured. I could not exc lude small effusions. IMPRESSION: 1. CARDIOMEGALY. 2. BIBASILAR AIRSPACE DISEASE, WORSE ON THE LEFT THAN THE RIGHT. 3. I CANNOT EXCLUDE SMALL, BILATERAL EFFUSIONS.
[2016-08-14 14:12] LABS: Iron <10 ug/dL (37-170)
[2016-08-14 14:22] LABS: % Iron Saturation <3.3 % (20-50); Total Iron Binding Capacity 301 ug/dL (265-497)
[2016-08-14 15:20] LABS: Amorphous Sediment,Urine Rare /hpf; Appearance,Urine Cloudy (Clear); Bilirubin,Urine Negative (Negative); Glucose,Urine (UA) Negative (Negative); Ketones,Urine Negative (Negative); Leukocyte Esterase,Urine Negative (Negative); Mucus,Urine Few /hpf; Nitrite,Urine Negative (Negative); Particle Count 7682; Protein,Urine Negative (Negative); Specific Gravity,Urine 1.015 (1.001-1.035); Squamous Epithelial Cell,Urine <1 /hpf (0-4); UA Billing (MACRO vs. MICRO) MICRO; Urobilinogen,Urine <2.0 mg/dL (<2.0); WBC,Urine <1 /hpf (0-5)
[2016-08-14] MEDS: ACETAMINOPHEN IV (For NPO) 1,000 MG in EMPTY BAG 1 BAG IVPB PRN (15:22)
[2016-08-14] MEDS ORDERED: DOPamine DRIP 500 ML IV ONE (16:40)
[2016-08-14] MEDS ORDERED: SODIUM CHLORIDE 0.9% 1,000 ML IV ONE (17:11)
[2016-08-14] MEDS: DOPamine DRIP 800 MG in DEXTROSE/WATER 1 500ML.BAG IV SCH (17:33)
--- NOTE | 2016-08-14 18:01 | P.GSCN ---
History of Present Illness Consult date: 08/13/16 Reason for Consult: Abdominal pain Requesting physician: Melyssa Francisco History of present illness: Patient is an 80-year-old female, referred from Dr. Matt for abdominal pain. Medical history significant for anemia with recent EGD revealing gastritis in May 2016. Patient admitted through the emergency department with chest discomfort, shortness of breath and nausea. Per chart, patient had reported diarrhea with black stools at home prior to admission. Hemoglobin on admission 8.6. Hemoglobin this morning 7.1. No signs of overt bleeding per staff. Patient was ordered to have 1 unit of PRBC. Upon examination, patient is lethargic and having a possible blood transfusion reaction one hour into the transfusion per nurse at bedside. Patient is a poor historian and most of the information is taken from staff and chart. Patient is currently in the process of being transferred to the intensive care unit. Past Medical History Past Medical History: Coronary Artery Disease (CAD), Diabetes Mellitus, GERD/ Reflux, Hyperlipidemia, Hypertension, Liver Disease, Myocardial Infarction (MD) , Osteoarthritis (OA) Additional Past Medical History / Comment(s): Coronary artery disease, hypertension, diabetes mellitus, hyperlipidemia, recent fall following an episode of syncope during which the patient sustained a left humeral fracture, episodes of dysphagia, chronic anemia, history of small bowel obstruction related to a ultimately turned out to be benign and was resected, chronic renal failure with stage III kidney disease, CHF with diastolic dysfunction with an ejection fraction of 55-60% based on previous echocardiogram along with aortic stenosis, previous carotid bypass surgery, osteoarthritis Last Myocardial Infarction Date:: 2009 History of Any Multi-Drug Resistant Organisms: None Reported Past Surgical History: Adenoidectomy, Cholecystectomy, Coronary Bypass/CABG, Heart Catheterization, Tonsillectomy, Tubal Ligation Additional Past Surgical History / Comment(s): 2009 Cab[facility] in [place], 04/16/10 colonoscopy with benign polypectomy, liver surgery-unkn what type, cataract removal bilaterally. Past Anesthesia/Blood Transfusion Reactions: Postoperative Nausea & Vomiting ( PONV) Past Psychological History: Depression Additional Psychological History / Comment(s): Pt has history of depression but states that was in the past and no longer an issue for her. She is . She lives alone. She uses a walker to ambulate. She does not drive-her family take her places. Patient states no changes to Smoking Status: Never smoker Past Alcohol Use History: None Reported Past Drug Use History: None Reported - Past Family History Father Family Medical History: Diabetes Mellitus Additional Family Medical History / Comment(s): Pt believes her father was diabetic. He had toes amputated. He in his 90s Mother Family Medical History: Unable to Obtain Additional Family Medical History / Comment(s): Pt knows that her mother was unhealthy but does not know what health problems she might have had. she at 87yrs. Medications and Allergies Home Medications Medication Instructions Recorded Confirmed Type Donepezil [Aricept] 10 mg PO HS 02/15/15 08/13/16 History Fenofibrate [Lofibra] 160 mg PO HS 02/15/15 08/13/16 History Pantoprazole Sodium [Protonix] 40 mg PO QAM 02/15/15 08/13/16 History Ascorbic Acid [Vitamin C] 500 mg PO HS 05/03/16 08/13/16 History Cetirizine HCl 10 mg PO DAILY PRN 05/03/16 08/13/16 History Cholecalciferol [Vitamin D3] 5,000 unit PO HS 05/03/16 08/13/16 History Clopidogrel [Plavix] 75 mg PO DAILY 05/03/16 08/13/16 History Furosemide [Lasix] 40 mg PO DAILY 05/03/16 08/13/16 History Metoprolol Tartrate [Lopressor] 25 mg PO HS 05/03/16 08/13/16 History Multivitamins, Thera [Multivitamin 1 tab PO HS 05/03/16 08/13/16 History (formulary)] Potassium Chloride ER [K-Dur 10] 10 meq PO HS 05/03/16 08/13/16 History Sennosides [Senna] 8.6 mg PO HS PRN 05/03/16 08/13/16 History Sertraline [Zoloft] 100 mg PO HS 05/03/16 08/13/16 History Nitroglycerin Sl Tabs [Nitrostat] 0.4 mg SUBLINGUAL Q5M PRN 05/30/16 08/13/16 History Ezetimibe [Zetia] 10 mg PO DAILY 08/13/16 08/13/16 History Allergies Allergy/AdvReac Type Severity Reaction Status Date / Time No Known Allergies Allergy Verified 08/13/16 08:10 Surgical - Exam Vital Signs Temp Pulse Resp BP Pulse Ox 100.0 F H 86 24 116/53 98 08/13/16 02:56 08/13/16 02:56 08/13/16 02:56 08/13/16 02:56 08/13/16 02:56 GENERAL: Pt lethargic, appears in moderate distress. Results - Labs 08/14/16 05:58 08/14/16 05:58 Abnormal Lab Results - Last 24 Hours (Table) 08/14/16 08/14/16 08/14/16 Range/Units 05:58 05:58 05:58 RBC 2.62 L (3.80-5.40) m/uL Hgb 7.1 L D (11.4-16.0) gm/dL Hct 24.6 L (34.0-46.0) % MCHC 28.9 L (31.0-37.0) g/dL Lymphocytes # 0.7 L (1.0-4.8) k/uL Sodium 131 L (137-145) mmol/L Carbon Dioxide 18 L (22-30) mmol/L BUN 49 H (7-17) mg/dL Creatinine 2.24 H (0.52-1.04) mg/dL Glucose 157 H (74-99) mg/dL Iron <10 L (37-170) ug/dL % Saturation <3.3 L (20-50) % AST 39 H (14-36) U/L Total Protein 5.3 L (6.3-8.2) g/dL Albumin 2.9 L (3.5-5.0) g/dL Urine Appearance (Clear) Amorphous Sediment (None) /hpf Hyaline Casts (0-2) /lpf Urine Mucus (None) /hpf Crossmatch 08/14/16 08/14/16 Range/Units 09:40 14:15 RBC (3.80-5.40) m/uL Hgb (11.4-16.0) gm/dL Hct (34.0-46.0) % MCHC (31.0-37.0) g/dL Lymphocytes # (1.0-4.8) k/uL Sodium (137-145) mmol/L Carbon Dioxide (22-30) mmol/L BUN (7-17) mg/dL Creatinine (0.52-1.04) mg/dL Glucose (74-99) mg/dL Iron (37-170) ug/dL % Saturation (20-50) % AST (14-36) U/L Total Protein (6.3-8.2) g/dL Albumin (3.5-5.0) g/dL Urine Appearance Cloudy H (Clear) Amorphous Sediment Rare H (None) /hpf Hyaline Casts 4 H (0-2) /lpf Urine Mucus Few H (None) /hpf Crossmatch See Detail Diabetes panel 08/14/16 Range/Units 05:58 Sodium 131 L (137-145) mmol/L Potassium 5.1 (3.5-5.1) mmol/L Chloride 102 (98-107) mmol/L Carbon Dioxide 18 L (22-30) mmol/L BUN 49 H (7-17) mg/dL Creatinine 2.24 H (0.52-1.04) mg/dL Glucose 157 H (74-99) mg/dL Calcium 8.4 (8.4-10.2) mg/dL AST 39 H (14-36) U/L ALT 28 (9-52) U/L Alkaline Phosphatase 82 (38-126) U/L Total Protein 5.3 L (6.3-8.2) g/dL Albumin 2.9 L (3.5-5.0) g/dL Calcium panel 08/14/16 Range/Units 05:58 Calcium 8.4 (8.4-10.2) mg/dL Albumin 2.9 L (3.5-5.0) g/dL Pituitary panel 08/14/16 Range/Units 05:58 Sodium 131 L (137-145) mmol/L Potassium 5.1 (3.5-5.1) mmol/L Chloride 102 (98-107) mmol/L Carbon Dioxide 18 L (22-30) mmol/L BUN 49 H (7-17) mg/dL Creatinine 2.24 H (0.52-1.04) mg/dL Glucose 157 H (74-99) mg/dL Calcium 8.4 (8.4-10.2) mg/dL Adrenal panel 08/14/16 Range/Units 05:58 Sodium 131 L (137-145) mmol/L Potassium 5.1 (3.5-5.1) mmol/L Chloride 102 (98-107) mmol/L Carbon Dioxide 18 L (22-30) mmol/L BUN 49 H (7-17) mg/dL Creatinine 2.24 H (0.52-1.04) mg/dL Glucose 157 H (74-99) mg/dL Calcium 8.4 (8.4-10.2) mg/dL Total Bilirubin 0.5 (0.2-1.3) mg/dL AST 39 H (14-36) U/L ALT 28 (9-52) U/L Alkaline Phosphatase 82 (38-126) U/L Total Protein 5.3 L (6.3-8.2) g/dL Albumin 2.9 L (3.5-5.0) g/dL - Imaging CT scan - abdomen: report reviewed CT scan - pelvis: report reviewed Assessment and Plan Plan: Impression: 1. Anemia, suspect acute blood loss. Plan: Patient will need EGD and colonoscopy when cleared by cardiology. Continue to monitor hemoglobin and overt signs of bleeding. Continue to follow with consultants and primary service. The above impression and plan have been discussed and directed by Dr. Mehta. Gracy MATA acting as scribe for Dr. Mehta.
--- NOTE | 2016-08-14 18:02 | P.CONS ---
History of Present Illness - Reason for Consult Consult date: 08/14/16 left humerus lesion Requesting physician: Melyssa Francisco - Chief Complaint SOB, NM - History of Present Illness Mrs. Braswell is a very pleasant 80-year-old female who was brought to the hospital with complaints of progressive shortness of breath 2 days. She had non-STEMI, also congestive heart failure, blood cultures positive for staph aureus, elevated BUN and creatinine and profound anemia with a hemoglobin of 7.1. Patient denies any history of anemia but, on chart review she has been anemic since Feb 2015. Patient did have a left humerus fracture in Apr, and on patient's most 2 recent chest x-ray the Radiologist reported concerns for this area of fracture having lytic appearance, concerns for malignancy. Patient states that she fractured her arm after trauma, she was going to answer the door in a hurry and fell on outstretched arm. Patient denied any night sweats, weight loss, loss of appetite, nausea or vomiting, changes in bowel or bladder habits. She denies any other bone pains. Review of Systems All systems: negative Constitutional: Reports as per HPI Past Medical History Past Medical History: Coronary Artery Disease (CAD), Diabetes Mellitus, GERD/ Reflux, Hyperlipidemia, Hypertension, Liver Disease, Myocardial Infarction (NM) , Osteoarthritis (OA) Additional Past Medical History / Comment(s): Coronary artery disease, hypertension, diabetes mellitus, hyperlipidemia, recent fall following an episode of syncope during which the patient sustained a left humeral fracture, episodes of dysphagia, chronic anemia, history of small bowel obstruction related to a ultimately turned out to be benign and was resected, chronic renal failure with stage III kidney disease, CHF with diastolic dysfunction with an ejection fraction of 55-60% based on previous echocardiogram along with aortic stenosis, previous carotid bypass surgery, osteoarthritis Last Myocardial Infarction Date:: 2009 History of Any Multi-Drug Resistant Organisms: None Reported Past Surgical History: Adenoidectomy, Cholecystectomy, Coronary Bypass/CABG, Heart Catheterization, Tonsillectomy, Tubal Ligation Additional Past Surgical History / Comment(s): 2009 Cab[place] in [place], 04/16/10 colonoscopy with benign polypectomy, liver surgery-unkn what type, cataract removal bilaterally. Past Anesthesia/Blood Transfusion Reactions: Postoperative Nausea & Vomiting ( PONV) Past Psychological History: Depression Additional Psychological History / Comment(s): Pt has history of depression but states that was in the past and no longer an issue for her. She is . She lives alone. She uses a walker to ambulate. She does not drive-her family take her places. Patient states no changes to Smoking Status: Never smoker Past Alcohol Use History: None Reported Past Drug Use History: None Reported - Past Family History Father Family Medical History: Diabetes Mellitus Additional Family Medical History / Comment(s): Pt believes her father was diabetic. He had toes amputated. He in his 90s Mother Family Medical History: Unable to Obtain Additional Family Medical History / Comment(s): Pt knows that her mother was unhealthy but does not know what health problems she might have had. she at 87yrs. Medications and Allergies Home Medications Medication Instructions Recorded Confirmed Type Donepezil [Aricept] 10 mg PO HS 02/15/15 08/13/16 History Fenofibrate [Lofibra] 160 mg PO HS 02/15/15 08/13/16 History Pantoprazole Sodium [Protonix] 40 mg PO QAM 02/15/15 08/13/16 History Ascorbic Acid [Vitamin C] 500 mg PO HS 05/03/16 08/13/16 History Cetirizine HCl 10 mg PO DAILY PRN 05/03/16 08/13/16 History Cholecalciferol [Vitamin D3] 5,000 unit PO HS 05/03/16 08/13/16 History Clopidogrel [Plavix] 75 mg PO DAILY 05/03/16 08/13/16 History Furosemide [Lasix] 40 mg PO DAILY 05/03/16 08/13/16 History Metoprolol Tartrate [Lopressor] 25 mg PO HS 05/03/16 08/13/16 History Multivitamins, Thera [Multivitamin 1 tab PO HS 05/03/16 08/13/16 History (formulary)] Potassium Chloride ER [K-Dur 10] 10 meq PO HS 05/03/16 08/13/16 History Sennosides [Senna] 8.6 mg PO HS PRN 05/03/16 08/13/16 History Sertraline [Zoloft] 100 mg PO HS 05/03/16 08/13/16 History Nitroglycerin Sl Tabs [Nitrostat] 0.4 mg SUBLINGUAL Q5M PRN 05/30/16 08/13/16 History Ezetimibe [Zetia] 10 mg PO DAILY 08/13/16 08/13/16 History Allergies Allergy/AdvReac Type Severity Reaction Status Date / Time No Known Allergies Allergy Verified 08/13/16 08:10 Physical Exam Vitals: Vital Signs Temp Pulse Pulse Resp BP BP BP 08/14/16 16:00 98.8 F 73 22 72/37 08/14/16 15:30 78 22 78/41 08/14/16 15:00 82 14 81/40 08/14/16 14:45 88 18 82/44 08/14/16 14:30 92 20 103/50 08/14/16 14:15 94 23 93/49 08/14/16 13:24 90 08/14/16 13:10 88 08/14/16 13:00 95 148/100 08/14/16 12:36 98.8 F 69 125/71 08/14/16 12:06 99.0 F 75 101/52 08/14/16 12:00 99.0 F 75 101/52 08/14/16 11:56 99.5 F 75 83/49 08/14/16 08:00 97.6 F 72 88/49 08/14/16 04:00 76 19 90/51 08/14/16 00:00 72 19 90/51 08/13/16 20:00 97.7 F 78 19 116/55 Pulse Ox 08/14/16 16:00 98 08/14/16 15:30 97 08/14/16 15:00 94 L 08/14/16 14:45 95 08/14/16 14:30 96 08/14/16 14:15 98 08/14/16 13:24 08/14/16 13:10 08/14/16 13:00 100 08/14/16 12:36 91 L 08/14/16 12:06 99 08/14/16 12:00 99 08/14/16 11:56 99 08/14/16 08:00 100 08/14/16 04:00 98 08/14/16 00:00 96 08/13/16 20:00 98 Intake and Output 08/14/16 08/14/16 08/14/16 06:59 14:59 22:59 Intake Total 490 410 100 Output Total 695 60 Balance 490 -285 40 Intake: IV 240 200 100 ACETAMINOPHEN IV (For NPO 100 ) 1,000 mg In Empty Bag 1 bag @ 400 mls/hr IVPB Q6HR PRN Rx#:[id number] ns 240 100 100 Intake, IV Titration 250 Amount Vancomycin 1,250 mg In 250 Sodium Chloride 0.9% 250 ml @ 125 mls/hr IVPB Q36H [facility] Rx#:[id number] Oral 120 Blood Product 90 Rc As-1 Unit 90 [id number] Output: Urine 695 60 Other: Voiding Method Bedpan Weight 74.5 kg - Constitutional General appearance: average body habitus, mild distress - EENT Eyes: anicteric sclerae, normal appearance ENT: hearing grossly normal - Neck Neck: no lymphadenopathy - Respiratory Respiratory: bilateral: diminished - Cardiovascular Heart sounds: normal: S1, S2 leg Peripheral Edema: bilateral: None - Gastrointestinal General gastrointestinal: no absent bowel sounds, no decreased bowel sounds, no distended, no hepatomegaly, no hyperactive bowel sounds, normal bowel sounds, no organomegaly, no rigid, no scaphoid, soft, no splenomegaly, tenderness, no umbilical hernia, no ventral hernia Localized gastrointestinal: tender: RLQ - Integumentary Integumentary: pale - Musculoskeletal LUE pain with palpation of the upper humerus and right hand Musculoskeletal: generalized weakness - Psychiatric Psychiatric: A&O x's 3, appropriate affect, intact judgment & insight Results CBC & Chem 7: 08/14/16 05:58 08/14/16 05:58 Labs: Abnormal Lab Results - Last 24 Hours (Table) 08/14/16 08/14/16 08/14/16 Range/Units 05:58 05:58 05:58 RBC 2.62 L (3.80-5.40) m/uL Hgb 7.1 L D (11.4-16.0) gm/dL Hct 24.6 L (34.0-46.0) % MCHC 28.9 L (31.0-37.0) g/dL Lymphocytes # 0.7 L (1.0-4.8) k/uL Sodium 131 L (137-145) mmol/L Carbon Dioxide 18 L (22-30) mmol/L BUN 49 H (7-17) mg/dL Creatinine 2.24 H (0.52-1.04) mg/dL Glucose 157 H (74-99) mg/dL Iron <10 L (37-170) ug/dL % Saturation <3.3 L (20-50) % AST 39 H (14-36) U/L Total Protein 5.3 L (6.3-8.2) g/dL Albumin 2.9 L (3.5-5.0) g/dL Urine Appearance (Clear) Amorphous Sediment (None) /hpf Hyaline Casts (0-2) /lpf Urine Mucus (None) /hpf Crossmatch 08/14/16 08/14/16 Range/Units 09:40 14:15 RBC (3.80-5.40) m/uL Hgb (11.4-16.0) gm/dL Hct (34.0-46.0) % MCHC (31.0-37.0) g/dL Lymphocytes # (1.0-4.8) k/uL Sodium (137-145) mmol/L Carbon Dioxide (22-30) mmol/L BUN (7-17) mg/dL Creatinine (0.52-1.04) mg/dL Glucose (74-99) mg/dL Iron (37-170) ug/dL % Saturation (20-50) % AST (14-36) U/L Total Protein (6.3-8.2) g/dL Albumin (3.5-5.0) g/dL Urine Appearance Cloudy H (Clear) Amorphous Sediment Rare H (None) /hpf Hyaline Casts 4 H (0-2) /lpf Urine Mucus Few H (None) /hpf Crossmatch See Detail Chest x-ray: report reviewed, image reviewed CT scan - abdomen: report reviewed CT scan - pelvis: report reviewed Assessment and Plan (1) Anemia Narrative/Plan: Anemia workup has been ordered. Patient did have a transfusion reaction. Recommendation is once patient has recovered, type and cross and transfuse another unit of blood for a hemoglobin of 7.1. Status: Chronic (2) Humerus lesion, left Narrative/Plan: CT without contrast is going to be ordered for closer evaluation of the left upper extremity, further recommendations will follow based on image findings as well as laboratory workup. Status: Acute
--- NOTE | 2016-08-14 19:29 | CONS ---
DATE OF CONSULTATION: 08/14/2016 REASON FOR CONSULTATION: Renal failure. HISTORY OF PRESENT ILLNESS: Patient is an 80-year-old female who was admitted to the hospital yesterday with complaints of shortness of breath. She also had chest pain. Patient ruled in for acute UT. Troponin was about 2.1. She was also noted to have a hemoglobin of 8.6 g/dL and then it dropped to 7.1 g/dL today. Patient has been having GI bleed. Her blood pressure is running low, with systolic about 81 mmHg this morning. She was 103 mmHg systolic previously. Currently patient is receiving 1 unit packed RBCs. She is comfortable. She denies any significant ongoing chest pain. She has been voiding. Serum creatinine was 1.27 mg/dL on initial admission. It is now at 2.24. Patient did have a CT scan, but she did not receive any IV dye. Currently she is not maintained on IV fluids. PAST MEDICAL HISTORY: 1. Hypertension. 2. Coronary artery disease. 3. Type 2 diabetes. 4. Hyperlipidemia. 5. Osteoarthritis. 6. Previous history of UT. 7. CHF with diastolic dysfunction; EF of 55% to 60%. 8. History of chronic anemia. 9. History of bowel obstruction. PAST SURGICAL HISTORY: 1. Adenoidectomy. 2. Cholecystectomy. 3. Coronary artery bypass surgery. 4. Tonsillectomy. 5. Tubal ligation. 6. Colonoscopy. 7. Cataract surgery. 8. Polypectomy. SOCIAL HISTORY: Negative for smoking, drug abuse or alcohol abuse. Medications at home included: 1. Aricept. 2. Protonix. 3. Vitamin C. 4. Vitamin D3. 5. Plavix. 6. Lasix. 7. Lopressor. 8. Multivitamins. 9. Zoloft. 10. Zetia. ALLERGIES: NONE. On examination, patient is comfortable, awake, not in any acute distress. Blood pressure was 82/44 when patient was seen earlier. EXAMINATION OF THE HEART: S1 and S2. EXAMINATION OF THE LUNGS: Bilateral breath sounds are heard. Decreased breath sounds in bases. ABDOMEN: Soft, nontender. Examination of lower extremities shows no significant edema. [employer] exam is grossly intact. Patient is moving all 4 extremities. Labs show sodium 131, potassium 5.1; hemoglobin 7.1 g/dL. Serum creatinine 2.24. Troponin was 1.3. Albumin 2.9. Amylase 44 and lipase 44. Iron saturation less than 3. ASSESSMENT: 1. Acute kidney injury secondary to hypotension, hypoperfusion, currently non-oliguric. Avoid any nephrotoxic agents. MANSOOR inhibitors have been discontinued. Patient may need to be started on pressors if she remains hypotensive. Hopefully this will improve with the packed RBC transfusion. 2. Status post acute myocardial infarction, being followed by Cardiology. 3. Anemia with evidence of severe iron deficiency. 4. Bacteremia with blood culture growing Staphylococcus aureus, status post vancomycin. PLAN: Agree with transfusing packed RBCs. Will give IV iron as well in a couple of days' time once the bacteremia is cleared. Await further input. Cardiac cath is currently held secondary to bacteremia. Avoid nephrotoxic agents. Continue antibiotics. Repeat labs in a.m. Patient may need pressors if she remains hypotensive.
[2016-08-14 19:35] LABS: Reticulocyte % 4.7 % (0.5-2.0)
[2016-08-14] MEDS: CHOLECALCIFEROL 1,000 UNIT TAB PO SCH (21:44)
[2016-08-14] MEDS: METOPROLOL TARTRATE 12.5 MG TAB PO SCH (21:44)
[2016-08-14] MEDS: DONEPEZIL 10 MG TAB PO SCH (21:44)
[2016-08-14] MEDS: FENOFIBRATE 160 MG TAB PO SCH (21:44)
[2016-08-14] MEDS: MULTIVITAMINS, THERA 1 EACH TAB PO SCH (21:45)
[2016-08-14] MEDS: SERTRALINE 100 MG TAB PO SCH (21:45)
[2016-08-14] MEDS: ALPRAZolam 0.25 MG TAB PO PRN (22:13)
[2016-08-15 05:08] LABS: Basophils % (A) 0 %; CH 26.7; CHCM 28.9; Eosinophils # (A) 0.1 k/uL (0-0.7); Eosinophils % (A) 1 %; HCT 27.2 % (34.0-46.0); HDW 3.24; HGB 8.1 gm/dL (11.4-16.0); Hypochromasia Marked; Luc % (Auto) 4; Lymphocytes # (A) 0.9 k/uL (1.0-4.8); Lymphocytes % (A) 10 %; MCH 27.7 pg (25.0-35.0); MCHC 29.8 g/dL (31.0-37.0); MCV 92.8 fL (80.0-100.0); Mean Platelet Volume 7.4; Monocytes # (A) 0.8 k/uL (0-1.0); Monocytes % (A) 9 %; Neutrophils # (A) 7.1 k/uL (1.3-7.7); Neutrophils % (A) 77 %; RBC 2.93 m/uL (3.80-5.40); WBC 9.3 k/uL (3.8-10.6); WBC (Perox) 9.74
[2016-08-15 05:26] LABS: Calcium 8.4 mg/dL (8.4-10.2); Potassium 4.8 mmol/L (3.5-5.1); Total Bilirubin 0.4 mg/dL (0.2-1.3); Total Protein 5.6 g/dL (6.3-8.2)
[2016-08-15] MEDS ORDERED: VANCOMYCIN 1,250 MG in SODIUM CHLORIDE 0.9% 250 ML IVPB ONE (08:00)
[2016-08-15] MEDS: HYDROmorphone 1 MG/ML 1 ML SYRINGE IVP PRN ×2 (08:45→19:54)
[2016-08-15] MEDS: PANTOPRAZOLE 40 MG/10 ML VIAL IVP SCH (09:09)
[2016-08-15] MEDS: EZETIMIBE 10 MG TAB PO SCH (09:10)
--- NOTE | 2016-08-15 09:37 | P.PN ---
Subjective Principal diagnosis: Non ST elevation myocardial infarction, anemia This is a pleasant 80-year-old female patient with a known history of coronary artery disease and presented here with complaints of chest pain radiating across her chest. She was found to have a non-ST segment elevation myocardial infarction. She is also found to be quite anemic and had been having diarrhea and black stools. Blood culture is also positive for presumptive staph aureus. Suspect urinary tract infection as well. Chest x-ray revealed some mild left basilar atelectasis and a small left pleural effusion. She is seen again today in follow-up 08/14/2016 on the selective care unit. She is having discomfort in her left arm she had recently sustained a fall with a humerus fracture. The , she denies any worsening shortness of breath at this time. Cough or congestion. She is maintaining good O2 saturations up to 100% on 2 L/m per nasal cannula. She does have a temperature currently at 99.5. White count 8.6. Hemoglobin 7.1. Creatinine 2.4. Echocardiogram is pending. The patient is seen again today in follow-up in the intensive care unit. She was brought over yesterday following a blood transfusion reaction she developed rigors. She was given Demerol with some relief. Today, she is more awake and alert. She is in no acute distress. She continues to have some left upper extremity pain secondary to a previous fall. Computed tomography scan is pending. Some left hip pain as well. She denies any shortness of breath, cough or congestion. Her blood cultures are positive for presumptive staph aureus. She remains on vancomycin and ceftriaxone. Her chest x-ray did reveal evidence of cardiomegaly and some bibasilar airspace disease more so on the left. Small bilateral pleural effusions. He is currently maintaining good O2 saturations up to 100% on 2 L/m per nasal cannula. She's been hemodynamically stable. Afebrile. Current hemoglobin 8.1. Hemodynamically stable. She remains on dopamine at 2.5 mcg/kg/m. Objective - Vital Signs Vital signs: Vital Signs Temp 97.4 F L 08/15/16 04:00 Pulse 72 08/15/16 07:00 Resp 19 08/15/16 07:00 BP 94/48 08/15/16 07:00 Pulse Ox 100 08/15/16 07:00 Intake & Output 08/14/16 08/15/16 08/15/16 18:59 06:59 18:59 Intake Total 1560 259.207 197.999 Output Total 800 1022 45 Balance 760 -762.793 152.999 Weight 78.8 kg Intake: IV 1350 200 ACETAMINOPHEN IV (For NPO 100 ) 1,000 mg In Empty Bag 1 bag @ 400 mls/hr IVPB Q6HR PRN Rx#:[id number] Sodium Chloride 0.9% 1, 1050 200 000 ml @ 999 mls/hr IV . Q1H1M ONE Rx#:[id number] ns 200 Intake, IV Titration 9. 197.999 Amount DOPamine DRIP 800 mg In 9. 197.999 Dextrose/Water 1 500ml. bag @ 2 MCG/KG/MIN 5.58 mls/hr IV .Q24H [facility] Rx#: [id number] Oral 120 50 Blood Product 90 Rc As-1 Unit 90 [id number] Output: Urine 800 1022 45 Other: Voiding Method Indwelling Catheter Indwelling Catheter - Exam GENERAL EXAM: Weak, pale. EYES: Normal reaction of pupils, equal size. NOSE: Clear with pink turbinates. THROAT: No erythema or exudates. NECK: No masses, no JVD. CHEST: No chest wall deformity. LUNGS: Equal air entry with crackles in the posterior bases more so on the left. CVS: S1 and S2 normal with an audible murmur, regular rhythm. ABDOMEN: No hepatosplenomegaly, normal bowel sounds, no guarding or rigidity. Extremities: There is 1+ peripheral edema. No clubbing, no cyanosis. Peripheral pulses are intact. - Labs CBC & Chem 7: 08/15/16 04:41 08/15/16 04:41 Labs: Abnormal Lab Results - Last 24 Hours (Table) 08/14/16 08/14/16 08/14/16 Range/Units 05:58 05:58 09:40 RBC (3.80-5.40) m/uL Hgb (11.4-16.0) gm/dL Hct (34.0-46.0) % MCHC (31.0-37.0) g/dL Lymphocytes # (1.0-4.8) k/uL Retic Count 4.7 H (0.5-2.0) % Sodium (137-145) mmol/L Carbon Dioxide (22-30) mmol/L BUN (7-17) mg/dL Creatinine (0.52-1.04) mg/dL Glucose (74-99) mg/dL Iron <10 L (37-170) ug/dL % Saturation <3.3 L (20-50) % AST (14-36) U/L Total Protein (6.3-8.2) g/dL Albumin (3.5-5.0) g/dL Urine Appearance (Clear) Amorphous Sediment (None) /hpf Hyaline Casts (0-2) /lpf Urine Mucus (None) /hpf Crossmatch See Detail 08/14/16 08/15/16 08/15/16 Range/Units 14:15 04:41 04:41 RBC 2.93 L (3.80-5.40) m/uL Hgb 8.1 L (11.4-16.0) gm/dL Hct 27.2 L (34.0-46.0) % MCHC 29.8 L (31.0-37.0) g/dL Lymphocytes # 0.9 L (1.0-4.8) k/uL Retic Count (0.5-2.0) % Sodium 134 L (137-145) mmol/L Carbon Dioxide 17 L (22-30) mmol/L BUN 53 H (7-17) mg/dL Creatinine 2.19 H (0.52-1.04) mg/dL Glucose 170 H (74-99) mg/dL Iron (37-170) ug/dL % Saturation (20-50) % AST 58 H (14-36) U/L Total Protein 5.6 L (6.3-8.2) g/dL Albumin 2.9 L (3.5-5.0) g/dL Urine Appearance Cloudy H (Clear) Amorphous Sediment Rare H (None) /hpf Hyaline Casts 4 H (0-2) /lpf Urine Mucus Few H (None) /hpf Crossmatch Microbiology - Last 24 Hours (Table) 08/14/16 05:58 Blood Culture Gram Stain - Preliminary Blood 08/14/16 05:58 Blood Culture - Preliminary Blood 08/14/16 14:15 Urine Culture - Preliminary Urine,Catheterized Assessment and Plan Plan: Impression: #1 Non-ST segment elevation myocardial infarction. #2 Anemia, suspect possible GI bleed in a patient with recent EGD in May 2016, and last colonoscopy 2010. #3 Sepsis secondary to presumptive Staphylococcus aureus #4 Febrile illness secondary to above and suspected urinary tract infection as well. #5 Acute exacerbation of diastolic congestive heart failure. #6 Hyperlipidemia. #7 Diabetes mellitus. #8 Hypertension. #9 History of coronary artery disease with previous coronary artery bypass grafting. #10 Left upper extremity pain secondary to recent left humeral fracture. #11 Valvular heart disease. #12 Acute kidney injury secondary to hypotension/hypo-profusion. Plan: The patient was seen and evaluated by Dr. Uribe. She is currently stable from the pulmonary and critical care standpoint. We'll continue with her current medications. We'll continue to monitor her hemoglobin. Hematology and nephrology are on the case as well. We will continue to follow make further recommendations based on her clinical status.
--- NOTE | 2016-08-15 10:12 | P.PN ---
Subjective Patient is currently in the intensive care unit. She remained on dopamine drip. She is complaining of abdominal pain. She did not have a bowel movement since admission according to her. No bowel movement documented in her chart. Objective - Vital Signs Vital signs: Vital Signs Temp 97.4 F L 08/15/16 04:00 Pulse 72 08/15/16 07:00 Resp 19 08/15/16 07:00 BP 94/48 08/15/16 07:00 Pulse Ox 100 08/15/16 07:00 Intake & Output 08/14/16 08/15/16 08/15/16 18:59 06:59 18:59 Intake Total 1560 259.207 200.442 Output Total 800 1022 45 Balance 760 -762.793 155.442 Weight 78.8 kg Intake: IV 1350 200 ACETAMINOPHEN IV (For NPO 100 ) 1,000 mg In Empty Bag 1 bag @ 400 mls/hr IVPB Q6HR PRN Rx#:[id number] Sodium Chloride 0.9% 1, 1050 200 000 ml @ 999 mls/hr IV . Q1H1M [facility] Rx#:[id number] ns 200 Intake, IV Titration 9.207 200.442 Amount DOPamine DRIP 800 mg In 9.207 200.442 Dextrose/Water 1 500ml. bag @ 2 MCG/KG/MIN 5.58 mls/hr IV .Q24H [facility] Rx#: [id number] Oral 120 50 Blood Product 90 Rc As-1 Unit 90 [id number] Output: Urine 800 1022 45 Other: Voiding Method Indwelling Catheter Indwelling Catheter - Exam General: The patient is awake and alert, in no distress Eye: there is normal conjunctiva bilaterally. Neck: The neck is supple, there is no JVD. Cardiovascular: Normal S1-S2, no S3-S4, no murmurs. Respiratory: Lungs clear to auscultation bilaterally Gastrointestinal: Abdomen is soft, there is mild to moderate tenderness to palpation throughout the abdomen Musculoskeletal: There is no pedal edema. Neurological:. Speech is normal. Skin: Skin is warm and dry - Labs CBC & Chem 7: 08/15/16 04:41 08/15/16 04:41 Labs: Abnormal Lab Results - Last 24 Hours (Table) 08/14/16 08/14/16 08/14/16 Range/Units 05:58 05:58 09:40 RBC (3.80-5.40) m/uL Hgb (11.4-16.0) gm/dL Hct (34.0-46.0) % MCHC (31.0-37.0) g/dL Lymphocytes # (1.0-4.8) k/uL Retic Count 4.7 H (0.5-2.0) % Sodium (137-145) mmol/L Carbon Dioxide (22-30) mmol/L BUN (7-17) mg/dL Creatinine (0.52-1.04) mg/dL Glucose (74-99) mg/dL Iron <10 L (37-170) ug/dL % Saturation <3.3 L (20-50) % AST (14-36) U/L Total Protein (6.3-8.2) g/dL Albumin (3.5-5.0) g/dL Urine Appearance (Clear) Amorphous Sediment (None) /hpf Hyaline Casts (0-2) /lpf Urine Mucus (None) /hpf Crossmatch See Detail 08/14/16 08/15/16 08/15/16 Range/Units 14:15 04:41 04:41 RBC 2.93 L (3.80-5.40) m/uL Hgb 8.1 L (11.4-16.0) gm/dL Hct 27.2 L (34.0-46.0) % MCHC 29.8 L (31.0-37.0) g/dL Lymphocytes # 0.9 L (1.0-4.8) k/uL Retic Count (0.5-2.0) % Sodium 134 L (137-145) mmol/L Carbon Dioxide 17 L (22-30) mmol/L BUN 53 H (7-17) mg/dL Creatinine 2.19 H (0.52-1.04) mg/dL Glucose 170 H (74-99) mg/dL Iron (37-170) ug/dL % Saturation (20-50) % AST 58 H (14-36) U/L Total Protein 5.6 L (6.3-8.2) g/dL Albumin 2.9 L (3.5-5.0) g/dL Urine Appearance Cloudy H (Clear) Amorphous Sediment Rare H (None) /hpf Hyaline Casts 4 H (0-2) /lpf Urine Mucus Few H (None) /hpf Crossmatch Microbiology - Last 24 Hours (Table) 08/14/16 05:58 Blood Culture Gram Stain - Preliminary Blood 08/14/16 05:58 Blood Culture - Preliminary Blood 08/14/16 14:15 Urine Culture - Preliminary Urine,Catheterized Assessment and Plan Plan: 1. Acute non-ST elevated OH with Chest pain with elevated troponins : No IV heparin or aspirin started due to suspected GI bleeding and anemia. Patient is followed by cardiology 2. abdominal pain: computed tomography scan of the abdomen and pelvis showing atrophic changes of the right kidney, pelvic ascites small amount, probable myomatous changes in uterus. General surgery following. We will add stool softeners given constipation. 3. Anemia with possible GI bleed: Patient reports having black stools. EGD in May 2016 revealing gastritis no active bleeding. Last colonoscopy several years ago. Patient has been evaluated by GI service and they're not planning for any endoscopy at this point. Patient received 1 unit of blood during this admission 4. Urinary tract infection: Check urine culture. Start patient on IV Rocephin 5. History of myocardial infarction with previous three-vessel coronary bypass graft 6. dementia continue Aricept 7. Essential hypertension continue metoprolol 8. Hyperlipidemia home medications 9. Possible lytic lesion on left humerus with previous left humerus fracture about 4 months ago. Oncology will be consulted. 10. Acute on chronic kidney disease stage III: Creatinine has increased to 2.24. Hold Lasix hold lisinopril. Nephrology has been consulted 11. Bacteremia with blood culture positive for presumptive staph aureus. Continue IV vancomycin pharmacy to dose. Repeat blood culture ordered today 12. Congestive heart failure: Awaiting echo and further cardiology recommendations. BNP level 99995 on admission
[2016-08-15] MEDS: ONDANSETRON 4 MG/2 ML VIAL IVP PRN (10:43)
--- NOTE | 2016-08-15 11:03 | P.PN ---
Progress Note - Text The patient states he doesn't feels well today. The somewhat short of breath. Some abdominal discomfort. Denies any nausea or vomiting. However not hungry. No significant diarrhea or melena or blood per rectum at this time. No hematemesis. On examination the patient is somewhat lethargic. Temperature is normal. Vitals are stable. Abdomen is a large obese mild diffuse tenderness with some voluntary guarding but no rebound or rigidity. Some organomegaly or hernias noted. Hemoglobin is stable. WBCs normal. CT scan was reviewed showing no evidence of any significant acute intra-abdominal pathology other than some mild pelvic ascites. Impression. The melena with diarrhea and anemia stable. Generalized abdominal tenderness. Unremarkable computed tomography scan. Generalized debility multiple medical issues. Recommendation continued medical management. Bowel rest. Close monitoring. Dr. Mehta plans on EGD and colonoscopy when stable and cleared by medicine.
[2016-08-15] MEDS: ACETAMINOPHEN IV (For NPO) 1,000 MG in EMPTY BAG 1 BAG IVPB PRN (12:08)
[2016-08-15] MEDS: DOCUSATE 100 MG CAP PO SCH (12:08)
--- NOTE | 2016-08-15 15:08 | PN ---
Patient is seen for follow-up for acute kidney injury. Patient has been quite hypotensive. Her blood pressure yesterday did not improve with packed RBC transfusion and she was transferred to the ICU. She was started on dopamine at about 5 mcg. This was tried to be weaned off today but blood pressure dropped. Currently patient is on about 3 mcg of dopamine. She has had fair urine output at about 45 to 30 mL an hour. Currently patient is not on any IV fluids. Her blood culture was positive for staph aureus including the second one which was done yesterday which showed gram-positive cocci. Currently patient is maintained on vancomycin. She is scheduled for possible endoscopy on Wednesday. Her troponin has been decreasing. She did rule in for acute non-ST elevation myocardial infarction as well. On examination today the patient is sitting up and she is comfortable, not in any acute distress. Blood pressure 81/45, heart rate 73 per minute. She is afebrile. Examination of the heart S1 and S2. Examination of the lungs: Decreased breath sounds in bases. Abdomen is soft. There is tenderness noted all over. Examination of lower extremities shows no significant edema is. Chest x-ray from yesterday showed possible small bilateral effusions, bibasilar space disease with enlarged heart. ASSESSMENT: 1. Acute kidney injury, acute tubular necrosis, nonoliguric with marginal urine output. Serum creatinine is about the same as yesterday at 2.19, it was 2.24 yesterday and initially it was 1.27. 2. Severe anemia, status post packed RBC transfusion. Scheduled for possible endoscopy on Wednesday. 3. Gram-positive bacteremia, Staphylococcus aureus, maintained on IV vancomycin with repeat cultures remaining positive. Consider echocardiogram to rule out any underlying endocarditis if blood cultures continue to remain positive. 4. Abdominal pain with underlying gastrointestinal bleed, being followed by surgery. CAT scan was unremarkable. 5. Scx-LI-ptpavltfu myocardial infarction. PLAN: Continue dopamine. Will give her a bolus of about 500 mL of saline if her urine output drops. Continue the IV vancomycin with monitoring of levels and I will also start her on IV iron tomorrow.
--- NOTE | 2016-08-15 18:33 | PN ---
DATE OF SERVICE: 08/15/2016 The patient is an 80-year-old pleasant white female who was admitted to the hospital with shortness of breath, abdominal pain, and not feeling well for the last few days duration. She was also complaining of severe pain across her left arm and was subsequently diagnosed with left arm fracture and possible ( ) that is presently being investigated. However, in the meantime because of severe anemia, we are consulted because of this issue. At the time of admission to hospital her hemoglobin was 8.6 and subsequently it dropped to 7 and she was given 2 units of transfusion yesterday. The patient has been complaining of some abdominal pain. She reports no nausea or vomiting. Complains of constipation. Last upper endoscopy in May 2016 showed some gastritis, but colonoscopy was in 2010. Since being in the hospital she has not had any active bleeding, in fact denies any rectal bleeding or melena prior to hospitalization too. On physical examination, she appears comfortable but extremely sleepy and every time she wakes up she complains of left arm pain. On physical examination, vital signs 85/44, pulse is 72, afebrile, temperature 99. HEENT EXAMINATION: Unremarkable. Conjunctivae pink. Sclerae anicteric. Oral cavity, no lesions. NECK: No JVD or lymph node enlargement. CHEST: Clear to auscultation. HEART: Regular rate and rhythm. ABDOMEN: Soft. It was slightly distended. There was mild diffuse tenderness. EXTREMITIES: No pedal edema. SKIN: No rashes. NEURO: She is awake, but falling asleep easily. LABS: From today, WBC 9.3, hemoglobin 8.1, platelets are normal. BUN is 53, creatinine 2.19. Serum iron is less than 10, TIBC is 301, iron saturation is 3.3% and serum ferritin is 84. Vitamin B12 level is 944. CT of the abdomen and pelvis at the time of admission to the hospital showed atrophic changes of the right kidney, some pelvic ascites noted, and possible ( ) changes in the uterus. IMPRESSION: 1. Severe symptomatic anemia with a hemoglobin of 7, requiring 2 units of PRBC transfusion yesterday. Since being in the hospital no evidence of active ongoing bleeding. Iron indices showed low iron saturation, but normal ferritin at 88. Mild iron deficiency anemia and anemia of other etiology needs to be considered. Clinically hemodynamically stable. 2. Left humerus fracture. Presently being investigated for possible malignancy because of lytic lesions noted on the x-ray. 3. Abdominal distention, abdominal pain. Recent CT scan showed a small amount of pelvic ascites. Surgery is following the patient closely. RECOMMENDATIONS: At this time will continue to watch her closely. She will need to be investigated with a colonoscopy in the near future once she is overall more medically stable. At this time, I will continue to follow the patient does not the hospital stay. Thank you for this consultation.
[2016-08-15] MEDS: MULTIVITAMINS, THERA 1 EACH TAB PO SCH (20:13)
[2016-08-15] MEDS: FENOFIBRATE 160 MG TAB PO SCH (20:13)
[2016-08-15] MEDS: CHOLECALCIFEROL 1,000 UNIT TAB PO SCH (20:13)
[2016-08-15] MEDS: SERTRALINE 100 MG TAB PO SCH (20:13)
[2016-08-15] MEDS: DONEPEZIL 10 MG TAB PO SCH (20:13)
[2016-08-16] MEDS: ceFAZolin 2 GM in SODIUM CHLORIDE 0.9% 100 ML IVPB SCH ×2 (00:25→13:36)
[2016-08-16] MEDS: HYDROmorphone 1 MG/ML 1 ML SYRINGE IVP PRN ×3 (05:25→22:51)
[2016-08-16] MEDS: DOPamine DRIP 800 MG in DEXTROSE/WATER 1 500ML.BAG IV SCH ×2 (05:30→19:36)
[2016-08-16 05:31] LABS: Basophils % (A) 0 %; CH 26.4; CHCM 28.9; Eosinophils # (A) 0.1 k/uL (0-0.7); Eosinophils % (A) 2 %; HCT 25.4 % (34.0-46.0); HDW 3.15; HGB 7.5 gm/dL (11.4-16.0); Hypochromasia Marked; Luc # (Auto) 0.19; Luc % (Auto) 2; Lymphocytes # (A) 0.5 k/uL (1.0-4.8); Lymphocytes % (A) 6 %; MCH 27.3 pg (25.0-35.0); MCHC 29.7 g/dL (31.0-37.0); MCV 91.8 fL (80.0-100.0); Mean Platelet Volume 7.5; Monocytes # (A) 0.7 k/uL (0-1.0); Monocytes % (A) 8 %; Neutrophils # (A) 6.7 k/uL (1.3-7.7); Neutrophils % (A) 82 %; RBC 2.76 m/uL (3.80-5.40); WBC 8.1 k/uL (3.8-10.6); WBC (Perox) 8.59
[2016-08-16 05:41] LABS: Calcium 8.8 mg/dL (8.4-10.2); Potassium 5.1 mmol/L (3.5-5.1); Total Bilirubin 0.3 mg/dL (0.2-1.3); Total Protein 5.3 g/dL (6.3-8.2)
[2016-08-16] MEDS ORDERED: NA PHOS,M-B/NA PHOS,DI-BA 133 ML ENEMA RECTAL ONE (08:36)
[2016-08-16] MEDS: DOCUSATE 100 MG CAP PO SCH (08:37)
[2016-08-16] MEDS: PANTOPRAZOLE 40 MG/10 ML VIAL IVP SCH (08:37)
[2016-08-16] MEDS: EZETIMIBE 10 MG TAB PO SCH (08:38)
[2016-08-16] MEDS: POLYETHYLENE GLYCOL 3350 17 GM POWD.PACK PO SCH (09:04)
--- NOTE | 2016-08-16 10:54 | PN ---
Ms. Braswell is an 80-year-old female with history of previous myocardial infarction and bypass surgery who was admitted to the hospital with complaints of abdominal pain, chest pain and also noted to have positive troponins. Patient also had acute renal failure and high BNP levels. Blood cultures are positive for staph aureus. She complains of generalized body aches and pains including abdominal pain and some tympanic sounds. She is having some tarry stools and anemia. Patient has received blood transfusions. There is a plan for a colonoscopy on Wednesday. The patient requests some blood transfusions and also IV pressor the for blood pressure support. Today, patient appears to be ill, complaining of generalized body pains. Blood pressure is about 100/50, pulse rate is about 68, respirations 20, saturation 95%. Her lab values showed hemoglobin of 8.1. Electrolytes are normal. Creatinine is 2.19, which is stable compared to yesterday. Clinically the patient is in distress. LUNGS: Appear to be showing some diminished breath sounds at bases. HEART: S1 and S2 heard. ABDOMEN: Tympanitic. FINAL IMPRESSION: 1. Possible septicemia. 2. Gastrointestinal bleeding and anemia. 3. Findings suggestive of possible non-ST elevation myocardial infarction, though it could be secondary to demand supply mismatch and renal failure. 4. Acute renal failure. PLAN: Continue current management. Wait for colonoscopy and further studies. Continue antibiotics. Prognosis is guarded. MTDD
--- NOTE | 2016-08-16 11:02 | CT ---
EXAMINATION TYPE: CT humerus LT wo con DATE OF EXAM: 08/16/2016 10:56 AM COMPARISON: NONE HISTORY: left humerus fx, possible mass CT DLP: 408.7 mGycm Automated exposure control for dose reduction was used. FINDINGS: Comminuted fracture of the left humeral neck. Arthropathy of the shoulder. Suspect a lucent lesion in volving the left humerus pathologic fracture. IMPRESSION: SUSPECTED COMMINUTED FRACTURE OF THE LEFT HUMERAL NECK LIKELY PATHOLOGIC WITH SUSPECTED INTRAOSSEOUS BONE LESION CORRELATE FOR HISTORY OF MALIGNANCY. THERE DOES APPEAR TO BE SOFT TISSUE THICKENING IN AR EA WHICH COULD BE RELATED TO EDEMA POST FRACTURE OR SOFT TISSUE MASS CORRELATE WITH MRI.
--- NOTE | 2016-08-16 12:18 | P.PN ---
Progress Note - Text The patient is a little more alert today. Did get some IV Dilaudid the within the last hour. Complete continues to complain of pain in the left shoulder and the abdomen. No vomiting or nausea. On examination she still looks somewhat ill. She is on Levothroid the blood pressure systolic ranges in the 9200 range. Slightly pale. Abdomen is obese the mildly distended diffusely tender with some guarding but no rebound. No mass or organomegaly or hernias noted. WBC is normal. Hemoglobin 7.5 down a little from yesterday. No evidence of any active bleeding however noted. No blood per rectum. No diarrhea. Impression anemia iron deficiency probably secondary to GI blood loss. Diffuse abdominal pain and some tenderness. No evidence of any significant intra- abdominal pathology by computed tomography scan Recommendation continued supportive care medical management. We will need endoscopic studies when she is more stable. Dr. Mehta will continue to follow with her tomorrow.
[2016-08-16] MEDS: SODIUM CHLORIDE 0.9% 1,000 ML IV SCH (13:23)
--- NOTE | 2016-08-16 14:03 | P.PN ---
Subjective Patient is currently in the intensive care unit. She remained on dopamine drip. She is complaining of abdominal and left shoulder pain. She did not have a bowel movement since admission according to her. No bowel movement documented in her chart. Objective - Vital Signs Vital signs: Vital Signs Temp 98.1 F 08/16/16 12:00 Pulse 80 08/16/16 13:00 Resp 22 08/16/16 13:00 BP 105/48 08/16/16 13:00 Pulse Ox 97 08/16/16 13:00 Intake & Output 08/15/16 08/16/16 08/16/16 18:59 06:59 18:59 Intake Total 820.442 515.943 486.473 Output Total 368 449 286 Balance 452.442 66.943 200.473 Weight 78.8 kg 76.6 kg Intake: IV 270 240 80 0.9 Normal Saline 220 240 80 ACETAMINOPHEN IV (For NPO 50 ) 1,000 mg In Empty Bag 1 bag @ 400 mls/hr IVPB Q6HR PRN Rx#:[id number] Intake, IV Titration 550.442 275.943 346.473 Amount DOPamine DRIP 800 mg In 200.442 275.943 96.473 Dextrose/Water 1 500ml. bag @ 2 MCG/KG/MIN 5.58 mls/hr IV .Q24H ALBA Rx#: [id number] Sodium Chloride 0.9% 1, 150 000 ml @ 50 mls/hr IV . Q20H ALBA Rx#:[id number] Vancomycin 1,250 mg In 250 Sodium Chloride 0.9% 250 ml @ 125 mls/hr IVPB ONCE ONE Rx#:[id number] ceFAZolin 2 gm In Sodium 100 Chloride 0.9% 100 ml @ 100 mls/hr IVPB Q12H ALBA Rx#:[id number] cefTRIAXone 1,000 mg In 100 Sodium Chloride 0.9% 50 ml @ 100 mls/hr IVPB Q24HR ALBA Rx#:[id number] Oral 60 Output: Urine 368 449 286 Other: Voiding Method Indwelling Catheter Indwelling Catheter - Exam General: The patient is awake and alert, in no distress Eye: there is normal conjunctiva bilaterally. Neck: The neck is supple, there is no JVD. Cardiovascular: Normal S1-S2, no S3-S4, no murmurs. Respiratory: Lungs clear to auscultation bilaterally Gastrointestinal: Abdomen is soft, there is mild to moderate tenderness to palpation throughout the abdomen Musculoskeletal: There is no pedal edema. Neurological:. Speech is normal. Skin: Skin is warm and dry - Labs CBC & Chem 7: 08/16/16 04:29 08/16/16 04:29 Labs: Abnormal Lab Results - Last 24 Hours (Table) 08/16/16 08/16/16 Range/Units 04:29 04:29 RBC 2.76 L (3.80-5.40) m/uL Hgb 7.5 L (11.4-16.0) gm/dL Hct 25.4 L (34.0-46.0) % MCHC 29.7 L (31.0-37.0) g/dL Lymphocytes # 0.5 L (1.0-4.8) k/uL Sodium 133 L (137-145) mmol/L Carbon Dioxide 18 L (22-30) mmol/L BUN 57 H (7-17) mg/dL Creatinine 1.90 H (0.52-1.04) mg/dL Glucose 138 H (74-99) mg/dL AST 42 H (14-36) U/L Total Protein 5.3 L (6.3-8.2) g/dL Albumin 2.8 L (3.5-5.0) g/dL Microbiology - Last 24 Hours (Table) 08/14/16 05:58 Blood Culture - Final Blood 08/15/16 10:42 Blood Culture - Final Blood 08/15/16 10:42 Blood Culture Gram Stain - Preliminary Blood 08/14/16 05:58 Blood Culture Gram Stain - Preliminary Blood Blood Culture - Preliminary Presumptive Staph aureus 08/14/16 14:15 Urine Culture - Final Urine,Catheterized Assessment and Plan Plan: 1. Acute non-ST elevated SC with Chest pain with elevated troponins : No IV heparin or aspirin started due to suspected GI bleeding and anemia. Patient is followed by cardiology 2. abdominal pain: computed tomography scan of the abdomen and pelvis showing atrophic changes of the right kidney, pelvic ascites small amount, probable myomatous changes in uterus. General surgery following. We will add stool softeners given constipation. 3. Anemia with possible GI bleed: Patient reports having black stools. EGD in May 2016 revealing gastritis no active bleeding. Last colonoscopy several years ago. Patient has been evaluated by GI service and they're not planning for any endoscopy at this point. Patient received 1 unit of blood during this admission 4. Urinary tract infection: Check urine culture. Start patient on IV Rocephin 5. History of myocardial infarction with previous three-vessel coronary bypass graft 6. dementia continue Aricept 7. Essential hypertension continue metoprolol 8. Hyperlipidemia home medications 9. Possible lytic lesion on left humerus with previous left humerus fracture about 4 months ago. Oncology will be consulted. 10. Acute on chronic kidney disease stage III: Creatinine has increased to 2.24. Hold Lasix hold lisinopril. Nephrology has been consulted 11. Bacteremia with blood culture positive for presumptive staph aureus. Continue IV vancomycin pharmacy to dose. Repeat blood culture ordered today 12. Congestive heart failure 13. Left humerus fracture: Subacute with recent fall several weeks ago. Orthopedic consulted for further evaluation.
--- NOTE | 2016-08-16 14:34 | PN ---
Patient is seen for follow-up for acute kidney injury secondary to ischemic acute tubular necrosis. The patient remains on dopamine at about 4 mcg. She has just returned from CT of her arm where patient was complaining of pain, which shows suspected comminuted fracture of the left humeral neck. Patient will be receiving an enema as her abdomen is slightly more distended and she has not had bowel movement. She is tentatively scheduled for endoscopy tomorrow for work-up for gastrointestinal bleed. Patient did have an [id number] myocardial infarction at the time of admission. She has had a fair amount of urine output, staying at about 50 to 25 mL/h. On examination, blood pressure is 105/48, heart rate 80 per minute. She is afebrile. Examination of the heart S1 and S2. Examination of the lungs: Decreased breath sounds in bases. ABDOMEN: Soft, distended, mild tenderness noted all over. Examination of lower extremities shows no significant edema. [employer] exam shows patient is moving all 4 extremities. Labs show sodium 133, potassium 5.1, serum creatinine 1.9. Hemoglobin at 7.5 g/dL. ASSESSMENT: 1. Acute kidney injury, acute tubular necrosis, secondary to hypotension, hypoperfusion, currently nonoliguric with serum creatinine slightly better today. Patient remains on the dopamine, which we are trying to wean off. She does not appear to be significantly volume overloaded. I will repeat another chest x-ray tomorrow. Continue off all IV fluids for now and there was suggestion of cardiomegaly and bibasilar air space disease on the previous chest x-ray. 2. Status post [id number] myocardial infarction. 3. Anemia with gastrointestinal bleed, scheduled for endoscopy tomorrow. 4. Bacteremia with blood cultures growing Staphylococcus aureus, source unclear. The patient will be evaluated by infectious disease. 5. Fracture of the left arm noted on CT of her left humerus. PLAN: Try to wean off dopamine. Repeat chest x-ray in a.m. and continue to avoid nephrotoxic agents.
--- NOTE | 2016-08-16 16:57 | PN ---
This is an 80-year-old female who was transferred over to the in the intensive care unit a couple days ago. The patient had a reaction to a blood transfusion. She developed significant rigors and was treated with meperidine. Today she is doing much better. She is more awake and alert. The patient apparently is going to have a scope done tomorrow. Her problem right now is constipation. She is doing well otherwise. She has also had some issues with hypotension. She has positive blood cultures that are positive for staph. She was on Rocephin and vancomycin but apparently the vancomycin was discontinued. ID was consulted. Because of the hypotension. She was placed on dopamine at 4 mcg/kg per minute. She remains on that. She seems to be doing relatively well otherwise. She is on O2 at 2 liters and a 0.9 IV at 20 mL an hour. Attempts at weaning her dopamine have proven to cause significant hypotension. Current vital signs include a temperature of 97.6, heart rate 77, respiratory rate 23, blood pressure 104/49 with a mean of 67 and 2 liters saturation 97%. Appears in no acute distress. A little pale. HEENT examination is grossly unremarkable. Mucous membranes are moist. No oral lesions. Neck is supple. Full range of motion. No adenopathy or thyromegaly. Cardiovascular examination reveals regular rhythm and rate. Heart rate in the 70's and regular. Lungs reveal a few scattered mild rhonchi. No wheezes or crackles. Abdomen is soft. Bowel sounds are heard. Extremities are intact. Minimal edema. Labs are reviewed. White count 8.1, hemoglobin 7.5, hematocrit 25.4, platelet count 285,000. Sodium 133, potassium 5.4, chloride 104, CO2 18, BUN and creatinine were 57 and 1.90. Anion gap is 11. The rest of the labs are reviewed. Microbiology is showing evidence of mild presumptive staph aureus on a couple different blood cultures. No recent x-rays to report. Medications are reviewed. ASSESSMENT: 1. Non-ST segment elevation myocardial infarction. 2. Anemia, likely gastrointestinal bleed. She had a recent EGD in May of 2016 and a colonoscopy in 2010. 3. Staphylococcus aureus sepsis, causing hypotension. 4. Urinary tract infection. 5. Diastolic congestive heart failure. 6. Hyperlipidemia. 7. Diabetes. 8. Hypertension by history. 9. Coronary artery disease with previous CABG. 10. Recent left humeral fracture. 11. Valvular heart disease. 12. Acute kidney injury, somewhat improved. PLAN: Overall, the patient's condition has stabilized. Still quite ill. She remains on dopamine at 4 mcg/kg per minute. Attempts to wean that yesterday caused hypotension. Dr. Santiago apparently is going to scope her. In addition, ID was consulted. The Vanco was discontinued for unclear reasons. Will continue to follow. Prognosis is guarded. The patient is unlikely going to have both an EGD and colonoscopy by either Dr. Mehta or Dr. Mehta in the next day or two.
--- NOTE | 2016-08-16 18:37 | PN ---
DATE OF SERVICE: August 16, 2016 Patient is an 80-year-old pleasant lady admitted to the hospital with severe symptomatic anemia, shortness of breath and left arm pain from humerus fracture. She received 1 unit of blood and since then her hemoglobin has been stable. Her last hemoglobin was 8.1 g/dL. She complains of abdominal pain and abdominal distention. She has not had any bowel movements since being in the hospital. She reports no nausea or vomiting. Tolerating diet reasonably well. On physical examination, appears comfortable in no apparent distress. Vital signs are stable. Blood pressure is 104/49, pulse is 81, temperature 97.6. HEENT: Unremarkable. Conjunctivae pink. Sclerae anicteric. Oral cavity, no lesions. NECK: No JVD or lymph node enlargement. Chest was clear to auscultation. HEART: Regular rate and rhythm. ABDOMEN: Distended. Mild diffuse tenderness. EXTREMITIES: No pedal edema. SKIN: No rashes. NEURO: Alert and oriented x3. No focal deficits. LABS: Hemoglobin 7.5, WBC 8.1, platelets normal. BUN 57, creatinine 1.9. IMPRESSION: 1. Severe symptomatic anemia, but no active bleeding. Hemoglobin stable at 7.5. 2. Renal insufficiency. 3. Abdominal pain and abdominal distention, probably related to constipation. RECOMMENDATIONS: 1. CBC every day. 2. When she is stable, will consider a colonoscopy. 3. Will start her on osmotic laxatives with MiraLax 1 scoop daily and continue with stool softeners. 4. We will follow her closely during her hospital stay.
[2016-08-16 18:42] LABS: Glucose,Whole Blood 113 mg/dL (75-99)
[2016-08-16] MEDS: MULTIVITAMINS, THERA 1 EACH TAB PO SCH (20:58)
[2016-08-16] MEDS: CHOLECALCIFEROL 1,000 UNIT TAB PO SCH (20:58)
[2016-08-16] MEDS: DONEPEZIL 10 MG TAB PO SCH (20:58)
[2016-08-16] MEDS: FENOFIBRATE 160 MG TAB PO SCH (20:58)
[2016-08-16] MEDS: SERTRALINE 100 MG TAB PO SCH (20:58)
[2016-08-17] MEDS: ceFAZolin 2 GM in SODIUM CHLORIDE 0.9% 100 ML IVPB SCH ×3 (00:42→23:33)
[2016-08-17 04:00] LABS: Glucose,Whole Blood 156 mg/dL (75-99)
[2016-08-17] MEDS: ONDANSETRON 4 MG/2 ML VIAL IVP PRN (04:39)
[2016-08-17 04:45] LABS: Basophils % (A) 0 %; CH 26.9; CHCM 28.9; Eosinophils # (A) 0.1 k/uL (0-0.7); Eosinophils % (A) 1 %; HCT 24.7 % (34.0-46.0); HDW 2.98; HGB 7.2 gm/dL (11.4-16.0); Hypochromasia Marked; Luc # (Auto) 0.19; Luc % (Auto) 2; Lymphocytes # (A) 0.6 k/uL (1.0-4.8); Lymphocytes % (A) 7 %; MCH 27.1 pg (25.0-35.0); MCV 93.3 fL (80.0-100.0); Mean Platelet Volume 7.2; Monocytes # (A) 0.7 k/uL (0-1.0); Monocytes % (A) 9 %; Neutrophils # (A) 6.4 k/uL (1.3-7.7); Neutrophils % (A) 80 %; RBC 2.65 m/uL (3.80-5.40); RDW 15.2 % (11.5-15.5); WBC (Perox) 8.42
[2016-08-17 04:58] LABS: Calcium 8.7 mg/dL (8.4-10.2); Magnesium 2.6 mg/dL (1.6-2.3); Phosphorous 4.6 mg/dL (2.5-4.5); Potassium 5.1 mmol/L (3.5-5.1); Total Bilirubin 0.2 mg/dL (0.2-1.3); Total Protein 4.8 g/dL (6.3-8.2)
[2016-08-17] MEDS ORDERED: HYDROmorphone 1 MG/ML 1 ML SYRINGE ONE (05:00)
[2016-08-17] MEDS: HYDROmorphone 1 MG/ML 1 ML SYRINGE IVP PRN ×4 (05:28→23:53)
[2016-08-17] MEDS: EZETIMIBE 10 MG TAB PO SCH (08:58)
[2016-08-17] MEDS: SODIUM CHLORIDE 0.9% 1,000 ML IV SCH (08:58)
[2016-08-17] MEDS: PANTOPRAZOLE 40 MG/10 ML VIAL IVP SCH (08:59)
[2016-08-17] MEDS: POLYETHYLENE GLYCOL 3350 17 GM POWD.PACK PO SCH (08:59)
[2016-08-17] MEDS: DOCUSATE 100 MG CAP PO SCH (08:59)
--- NOTE | 2016-08-17 09:53 | P.PN ---
Subjective 80-year-old female patient who initially presented on 08/13/2016 because of increased shortness of breath. The patient was ruled in for an acute non-ST segment elevation myocardial infarction. The patient is known to have coronary artery disease with previous bypass surgery. Other comorbid conditions include hypertension diabetes mellitus and hyperlipidemia and congestion heart failure. During this current hospitalization, the patient was also found to be septic with MRSA bacteremia, acute kidney injury secondary to acute ischemic trigger necrosis, sepsis, hypotension, pressor dependence, an acute transfusion reaction secondary to her packed RBC transfusion for which the patient was given for a low hemoglobin. The patient was also suspected to have a fracture of the left humerus. A CAT scan was done yesterday showed a comminuted fracture of the left humeral neck, and pathologic fracture was suspected with a concern of an underlying malignancy. There was soft tissue thickening in the area which could be related to edema post fracture or soft tissue mass. Note that I have seen this patient back in May 2016 for chest pain and suspected GI bleeding and back then was noted the patient sustained a fracture to her left humerus and this was being treated conservatively and she did not require any surgical intervention. The patient also is known to have history of syncope during which she did have had sustained the left humeral fracture, episodes of dysphagia, chronic anemia, small bowel obstruction related to a benign lesion of the intestine that was resected, chronic renal failure stage III kidney disease, CHF with diastolic dysfunction and ejection fraction of 55- 60%, aortic stenosis and previous coronary artery bypass surgery. On 08/17/2016 I'm seeing this patient in follow-up. The patient is resting comfortably in bed. The patient has no respiratory distress. Hemodynamically she is stable and the patient has been off dopamine for more than 12 hours. She is producing adequate amount of urine output. Her pulse ox is around 98% on 2 L of oxygen nasal cannula. She has a cardiac murmur which is related to aortic stenosis. As mentioned earlier, the patient had staph aureus Ammann MSSA and the blood, on 3 different blood cultures and the most recent blood cultures negative. For that reason, the patient was covered with cefazolin 2 g every 12 hours. Renal function is improving and creatinine is down to 1.5. Rest of the electrolytes show no major abnormalities. The patient continues to have a component of non-anion gap metabolic acidosis with a bicarb level of 18. The chest x-ray from admission showed evidence of any pneumonia. Echocardiogram from May 2016 showed a ejection fraction of 55-60% along with moderate degree of aortic stenosis. Objective - Vital Signs Vital signs: Vital Signs Temp 98.2 F 08/17/16 08:00 Pulse 78 08/17/16 09:00 Resp 17 08/17/16 09:00 BP 127/73 08/17/16 09:00 Pulse Ox 98 08/17/16 09:00 Intake & Output 08/16/16 08/17/16 08/17/16 18:59 06:59 18:59 Intake Total 369.564 4402.51 150 Output Total 1037 830 395 Balance -262.289 278.51 -245 Weight 77.2 kg Intake: IV 80 0.9 Normal Saline 80 Intake, IV Titration 614.711 508.51 150 Amount DOPamine DRIP 800 mg In 114.711 8.51 Dextrose/Water 1 500ml. bag @ 2 MCG/KG/MIN 5.58 mls/hr IV .Q24H [facility] Rx#: [id number] Sodium Chloride 0.9% 1, 400 400 150 000 ml @ 50 mls/hr IV . Q20H [facility] Rx#:[id number] ceFAZolin 2 gm In Sodium 100 100 Chloride 0.9% 100 ml @ 100 mls/hr IVPB Q12H [facility] Rx#:[id number] Oral 80 600 Output: Urine 437 830 95 Stool 600 300 Other: Voiding Method Indwelling Catheter Indwelling Catheter Indwelling Catheter # Bowel Movements 0 - Exam Head exam was generally normal. There was no scleral icterus or corneal arcus. Mucous membranes were moist.Neck was supple and without jugular venous distension, thyromegaly, or carotid bruits. Carotids were easily palpable bilaterally. There was no adenopathy. Lung sounds are diminished bilaterally especially lung bases. Heart sounds are regular, positive S1-S2 and the patient is a systolic ejection murmur grade 3/6 heard throughout the precordium more so in the left apex. Abdomen is soft. Bowel sounds are present. No direct tenderness, rebound tensile guarding. Scars are present in the right upper quadrant and mid abdomen is also umbilicus.Examination of the extremities revealed easily palpable radial, femoral and pedal pulses. There was no cyanosis , clubbing or edema. - Labs CBC & Chem 7: 08/17/16 03:41 08/17/16 03:41 Labs: Abnormal Lab Results - Last 24 Hours (Table) 08/16/16 08/17/16 08/17/16 Range/Units 18:39 03:41 03:41 RBC 2.65 L (3.80-5.40) m/uL Hgb 7.2 L (11.4-16.0) gm/dL Hct 24.7 L (34.0-46.0) % MCHC 29.0 L (31.0-37.0) g/dL Lymphocytes # 0.6 L (1.0-4.8) k/uL Sodium 136 L (137-145) mmol/L Chloride 108 H (98-107) mmol/L Carbon Dioxide 18 L (22-30) mmol/L BUN 50 H (7-17) mg/dL Creatinine 1.50 H (0.52-1.04) mg/dL Glucose 130 H (74-99) mg/dL POC Glucose (mg/dL) 113 H (75-99) mg/dL Phosphorus 4.6 H (2.5-4.5) mg/dL Magnesium 2.6 H (1.6-2.3) mg/dL Total Protein 4.8 L (6.3-8.2) g/dL Albumin 2.5 L (3.5-5.0) g/dL 08/17/16 Range/Units 03:58 RBC (3.80-5.40) m/uL Hgb (11.4-16.0) gm/dL Hct (34.0-46.0) % MCHC (31.0-37.0) g/dL Lymphocytes # (1.0-4.8) k/uL Sodium (137-145) mmol/L Chloride (98-107) mmol/L Carbon Dioxide (22-30) mmol/L BUN (7-17) mg/dL Creatinine (0.52-1.04) mg/dL Glucose (74-99) mg/dL POC Glucose (mg/dL) 156 H (75-99) mg/dL Phosphorus (2.5-4.5) mg/dL Magnesium (1.6-2.3) mg/dL Total Protein (6.3-8.2) g/dL Albumin (3.5-5.0) g/dL Microbiology - Last 24 Hours (Table) 08/16/16 04:29 Blood Culture - Preliminary Blood No Growth after 24 hours 08/14/16 05:58 Blood Culture Gram Stain - Final Blood Blood Culture - Final Staphylococcus aureus 08/15/16 10:42 Blood Culture Gram Stain - Preliminary Blood Blood Culture - Preliminary Presumptive Staph aureus 08/14/16 05:58 Blood Culture - Final Blood 08/15/16 10:42 Blood Culture - Final Blood Assessment and Plan Plan: Assessment 1 acute non-ST segment elevation myocardial infarction with an underlying coronary artery disease and previous bypass surgery, currently free of any chest pain 2 hypotension most likely secondary to underlying staph septicemia, currently off pressors 3 staph aureus septicemia, MSSA. The exact source is not clear. No evidence of pneumonia. No urinary source of infection. Endocarditis is less likely. 4 moderate degree of aortic stenosis 5 CHF with diastolic dysfunction and ejection fraction of 55-60% 6 diabetes mellitus type 2 7 hypertension 8 hyperlipidemia 9 previous history of syncope and fall with a fractured left humerus 10 chronic anemia with previous blood transfusions and fibrosis thousand and 17 11 right bundle branch block pattern on EKG 12 stage III chronic renal failure with an acute kidney injury, improving 13 episodes of dysphagia 14 history of small bowel obstruction related to a benign lesion that was surgically resected 15 osteoarthritis 16 osteoarthritis 17 left humerus fracture, please refer to the previous evaluations and the CAT scan is done. 18 non-anion gap metabolic acidosis Plan Continue IV cefazolin. Put the patient on normal saline today to 50 mL an hour. Monitor renal function. Monitor hemoglobin. ID evaluation. Patient can be chest out of the intensive care unit and she can be done to a telemetry unit for further monitoring and treatment.
--- NOTE | 2016-08-17 10:09 | CONS ---
DATE OF CONSULTATION: 08/16/2016 REASON FOR CONSULTATION: Bacteremia. HISTORY OF PRESENT ILLNESS: The patient is an 80-year-old female who presented to the ER at [facility] 08/13/2016 with chief complaints of shortness of breath. Her symptoms apparently have been getting worse for several days. The patient denies significant chest pain or cough or any sputum production. The patient did tell me that she was having some abdominal pain which is mostly gaseous, nauseated. Denies significant vomiting or any diarrhea or constipation. Subsequently patient has been evaluated by the ER physician. The patient also had a CT of abdomen and pelvis that did show a small basilar effusion and compressive atelectasis, atrophic changes of the right kidney, pelvic ascites small in amount, and probable changes in the uterus. The patient was noticed to have evidence of cholecystectomy with no significant hepatic lesion. Patient's blood cultures obtained on admission were positive for Staphylococcus aureus. The patient has been treated with Rocephin and vancomycin. Blood culture coming back positive from the [facility] and even from the . ID was consulted for further recommendation regarding antibiotic therapy. Looking at the data, the patient antibiotics are cefazolin 2 grams q.12 with the addition of vancomycin and Rocephin. The patient also having a pain in her left humerus area with the patient saying she was helped by her boyfriend who tried to hold her and she started having pain in that area. No history of any fall. There is evidence of suspected comminuted fracture of the left humeral neck, likely pathologic, with suspected bone lesion. Correlate for history of malignancy. Patient overall remains to be not a very good historian so most of the information obtained from the chart and asking some leading questions. REVIEW OF SYSTEMS: CONSTITUTIONAL: Positive for weakness with fever 100.5 on admission. EYES: No complaint. ENT: No complaint. RESPIRATORY: As per HPI. CARDIOVASCULAR: No complaint. GENITOURINARY: No complaint. GASTROINTESTINAL: As per HPI. MUSCULOSKELETAL: As per HPI. INTEGUMENTARY: No complaint. PSYCHOLOGICAL: No complaint. ENDOCRINE: No complaint. NEUROLOGIC: No complaint. PAST MEDICAL HISTORY: Diabetes mellitus, gastroesophageal reflux disease, coronary artery disease, hypertension, hyperlipidemia, myocardial infarction, osteoarthritis. PAST SURGICAL HISTORY: Appendectomy, cholecystectomy, coronary artery bypass grafting, heart catheterization, tonsillectomy, tubal ligation. SOCIAL HISTORY: No history of smoking, drinking, or drug use. FAMILY HISTORY: Father with history of diabetes. Mother no history obtained. ALLERGIES: No known drug allergies. Medications currently include patient is on: Cephazolin 2 gram q.12h dose adjusted for kidney function, vitamin D3, Colace, Aricept, dopamine, Zetia, Lofibra, Dilaudid, Theragran, Narcan, Zofran, Protonix, and MiraLAX, Zoloft. On examination, blood pressure is 110/57, pulse of 77, temperature 98.1. She is 97% on 2 liters nasal cannula. General description is an elderly female lying in bed in no distress. No tachypnea or accessory muscle of respiration use. HEENT examination shows pallor. There is no scleral icterus. Oral mucous membrane is dry. NECK: Trachea central. There is no thyromegaly. LUNGS: Unlabored breathing with decreased breath sounds at base. No wheeze. HEART: S1, S2 with regular rate and rhythm with systolic murmur. ABDOMEN: Soft and minimally distended. No guarding, no rigidity. No organomegaly. EXTREMITIES: No edema feet. SKIN: No rash or mass palpable. NEUROLOGICAL: The patient is awake, alert, oriented x2. Mood and affect normal. LABS: Hemoglobin is 7.5, white count 8.1, BUN 57, creatinine 1.9. UA has been negative. Troponin is slightly elevated. Blood culture positive from eleventh, twelfth and thirteenth. CT report as mentionable above. DIAGNOSTIC IMPRESSION AND PLAN: Patient with MSSA bacteremia in a patient with no clear focus. Patient admitted to the hospital with difficulty breathing and some vague abdominal pain. Her CT scan abdomen and pelvis did not show any significant abnormality such as an abscess. The patient did have a murmur and underlying endocarditis needs to be ruled out in view of the persistent bacteremia for almost 3 days, likely representing endovascular source. If echocardiogram is negative will recommending a CLARIBEL. The other focus of explanation for possible source of this bacteremia could be the left humerus where the patient is noticed to have pathological fracture. No significant swelling or redness of the left arm was noticed. PLAN: 1. Blood culture has been repeated this morning. Will follow that to make sure no evidence of any persistent bacteremia. 2. Will start with an echocardiogram. If this is negative, will be ordering a CLARIBEL. 3. If echocardiogram is negative, recommending CT guided aspirate of the left humerus area for cultures and biopsy. 4. Will follow up on the clinical condition and cultures to further adjust the medication if needed. Thank you for this consultation. Will follow this patient along with you. CHRISTINA
--- NOTE | 2016-08-17 10:42 | ECHOF ---
Referral Reason:chf MEASUREMENTS -------- HEIGHT: 154.9 cm WEIGHT: 74.4 kg BP: 88/49 RVIDd: 3.3 cm (< 3.3) IVSd: 1.3 cm (0.6 - 1.1) LVIDd: 4.8 cm (3.9 - 5.3) LVPWd: 1.3 cm (0.6 - 1.1) IVSs: 1.7 cm LVIDs: 3.7 cm LVPWs: 1.7 cm LA Diam: 3.8 cm (2.7 - 3.8) LAESV Index (A-L): 27.46 ml/m Ao Diam: 2.7 cm (2.0 - 3.7) AV Cusp: 0.9 cm (1.5 - 2.6) MV EXCURSION: 13.536 mm (> 18.000) MV EF SLOPE: 24 mm/s (70 - 150) EPSS: 0.7 cm MV E Fei: 1.72 m/s MV DecT: 355 ms MV A Fei: 1.33 m/s MV E/A Ratio: 1.29 AV maxP.14 mmHg AV meanP.52 mmHg RAP: 5.00 mmHg RVSP: 49.95 mmHg FINDINGS -------- This was a technically adequate study. The left ventricular size is normal. There is mild concentric left ventricular hypertrophy. Overall left ventricular systolic function is normal with, an EF between 55 - 60 %. The right ventricle is mildly enlarged. Normal LA size by volume 22+/-6 ml/m2. The right atrium was not well visualized. There is moderate aortic valve sclerosis. There is moderate aortic stenosis present. Peak/mean gradient across the Aortic Valve is 43.14mmHg / 24.52mmHg. The mitral valve leaflets are moderately thickened. Moderate mitral annular calcification present. Moderate mitral regurgitation is present. Mild tricuspid regurgitation present. There is moderate pulmonary hypertension. The right ventricular systolic pressure, as measured by Doppler, is 49.95mmHg. The pulmonic valve was not well visualized. The aortic root size is normal. Normal inferior vena cava with normal inspiratory collapse consistent with estimated right atrial pressure of 5 mmHg. The pericardium is normal. CONCLUSIONS -------- 1. This was a technically adequate study. 2. The mitral valve leaflets are moderately thickened. 3. Moderate mitral annular calcification present. 4. Moderate mitral regurgitation is present. 5. Mild tricuspid regurgitation present. 6. There is moderate pulmonary hypertension. 7. The right ventricular systolic pressure, as measured by Doppler, is 49.95mmHg. 8. The pulmonic valve was not well visualized. 9. The aortic root size is normal. 10. Normal inferior vena cava with normal inspiratory collapse consistent with estimated right atrial pressure of 5 mmHg. 11. The pericardium is normal. 12. The left ventricular size is normal. 13. There is mild concentric left ventricular hypertrophy. 14. The right ventricle is mildly enlarged. 15. Normal LA size by volume 22+/-6 ml/m2. 16. The right atrium was not well visualized. 17. There is moderate aortic valve sclerosis. 18. There is moderate aortic stenosis present. 19. Peak/mean gradient across the Aortic Valve is 43.14mmHg / 24.52mmHg. INSURANCE TERRITORY MANAGER: Malathi García RDCS
--- NOTE | 2016-08-17 11:00 | PN ---
Mrs. Braswell is an 80-year-old female who was admitted to the hospital with a generalized aches, abdominal pain evidence of GI bleeding, and anemia. Patient is also hypotensive and possible sepsis. Her troponins are elevated suggestive of possible non-ST initial myocardial infarction. The patient is on dopamine. She also developed acute renal failure. She is being followed by multiple specialists. She also is complaining of shoulder pain and x-rays and CT scan showed evidence of fracture of the humerus. Patient has received some Dilaudid and at the time of examination she seems to be sleepy. Her blood pressure is about 80/40, pulse rate is about 70, respirations are 18. Neck is supple. HEART: Distant heart sounds. Lungs show diminished breath sounds. Abdomen is tympanic. EXTREMITIES: Mild edema. Lab values showed today, hemoglobin of 7.5, WBC count 8.1 potassium is 5.1, creatinine is 1.9 today. PLAN: From cardiac standpoint, we will continue current medical therapy. We will wait for further evaluation by GI department regarding GI bleeding. Given her multiple medical issues, her prognosis is poor.
--- NOTE | 2016-08-17 11:08 | P.PN ---
Subjective This is a 80-year-old female, patient of [facility]. She has a known past medical history of myocardial infarction and three-vessel coronary artery bypass graft, coronary artery disease, hyperlipidemia, hypertension, diabetes, chronic kidney disease and dementia. Also history of anemia with recent EGD and May 2016 revealing gastritis colonoscopy was several years ago. She presents to the hospital with complaints of chest pain, abdominal pain , black stools with episodes of diarrhea. She's found have evidence of a non- ST elevated PA. Not able to be on aspirin or IV heparin at this time due to her significant anemia. Patient is found to have a UTI as well as positive blood cultures growing presumptive staph aureus. She currently on vancomycin and Rocephin. She still complaining of some abdominal pain. Also having some shortness of breath. Hemoglobin is 7.1 today she'll get receive 1 unit of blood. Creatinine has jumped up to 2.24. Nephrology will be consulted Lasix and lisinopril are on hold. 08/17/2016 patient currently in the ICU. She had a reaction to blood transfusion on Wednesday. Hemoglobin is 7.2. She is having stools. Loose but not dark and no blood present. She is still complaining of some belly pain. Left arm is in sling. She has been off of the dopamine since yesterday. She is followed by multiple consulting physicians. Continue to monitor closely. The planning on transferring her to the sixth floor this afternoon. Objective - Vital Signs Vital signs: Vital Signs Temp 98.2 F 08/17/16 08:00 Pulse 78 08/17/16 09:00 Resp 17 08/17/16 09:00 BP 127/73 08/17/16 09:00 Pulse Ox 100 08/17/16 09:52 Intake & Output 08/16/16 08/17/16 08/17/16 18:59 06:59 18:59 Intake Total 948.676 4444.51 150 Output Total 1037 830 395 Balance -262.289 278.51 -245 Weight 77.2 kg Intake: IV 80 0.9 Normal Saline 80 Intake, IV Titration 614.711 508.51 150 Amount DOPamine DRIP 800 mg In 114.711 8.51 Dextrose/Water 1 500ml. bag @ 2 MCG/KG/MIN 5.58 mls/hr IV .Q24H [facility] Rx#: [id number] Sodium Chloride 0.9% 1, 400 400 150 000 ml @ 50 mls/hr IV . Q20H [facility] Rx#:[id number] ceFAZolin 2 gm In Sodium 100 100 Chloride 0.9% 100 ml @ 100 mls/hr IVPB Q12H [facility] Rx#:[id number] Oral 80 600 Output: Urine 437 830 95 Stool 600 300 Other: Voiding Method Indwelling Catheter Indwelling Catheter Indwelling Catheter # Bowel Movements 0 - Exam Head normocephalic Neck supple Lungs diminished bilaterally Heart regular rate and rhythm S1-S2, no rub or gallop positive murmur Abdomen is soft nondistended positive bowel sounds diffuse abdominal tenderness Extremities no edema Neuro awake and alert eating breakfast - Labs CBC & Chem 7: 08/17/16 03:41 08/17/16 03:41 Labs: Abnormal Lab Results - Last 24 Hours (Table) 08/16/16 08/17/16 08/17/16 Range/Units 18:39 03:41 03:41 RBC 2.65 L (3.80-5.40) m/uL Hgb 7.2 L (11.4-16.0) gm/dL Hct 24.7 L (34.0-46.0) % MCHC 29.0 L (31.0-37.0) g/dL Lymphocytes # 0.6 L (1.0-4.8) k/uL Sodium 136 L (137-145) mmol/L Chloride 108 H (98-107) mmol/L Carbon Dioxide 18 L (22-30) mmol/L BUN 50 H (7-17) mg/dL Creatinine 1.50 H (0.52-1.04) mg/dL Glucose 130 H (74-99) mg/dL POC Glucose (mg/dL) 113 H (75-99) mg/dL Phosphorus 4.6 H (2.5-4.5) mg/dL Magnesium 2.6 H (1.6-2.3) mg/dL Total Protein 4.8 L (6.3-8.2) g/dL Albumin 2.5 L (3.5-5.0) g/dL 08/17/16 Range/Units 03:58 RBC (3.80-5.40) m/uL Hgb (11.4-16.0) gm/dL Hct (34.0-46.0) % MCHC (31.0-37.0) g/dL Lymphocytes # (1.0-4.8) k/uL Sodium (137-145) mmol/L Chloride (98-107) mmol/L Carbon Dioxide (22-30) mmol/L BUN (7-17) mg/dL Creatinine (0.52-1.04) mg/dL Glucose (74-99) mg/dL POC Glucose (mg/dL) 156 H (75-99) mg/dL Phosphorus (2.5-4.5) mg/dL Magnesium (1.6-2.3) mg/dL Total Protein (6.3-8.2) g/dL Albumin (3.5-5.0) g/dL Microbiology - Last 24 Hours (Table) 08/16/16 04:29 Blood Culture - Preliminary Blood No Growth after 24 hours 08/14/16 05:58 Blood Culture Gram Stain - Final Blood Blood Culture - Final Staphylococcus aureus 08/15/16 10:42 Blood Culture Gram Stain - Preliminary Blood Blood Culture - Preliminary Presumptive Staph aureus 08/14/16 05:58 Blood Culture - Final Blood 08/15/16 10:42 Blood Culture - Final Blood Assessment and Plan Plan: 1. Acute non-ST elevated PA with Chest pain with elevated troponins : No IV heparin or aspirin started due to suspected GI bleeding and anemia. Patient is followed by cardiology 2. abdominal pain with diarrhea: Computed tomography scan of the abdomen showed no significant acute abnormalities. Followed by surgery. 3. Anemia with possible GI bleed and acute blood loss anemia with evidence of iron deficiency. Patient reports having black stools. Hemoglobin 8.6 on admission. EGD in May 2016 revealing gastritis no active bleeding. Last colonoscopy several years ago. Hemoglobin is 7.2. Awaiting GI service recommendations on possible endoscopy 4. Hypotension most likely secondary to Staphylococcus septicemia: Monitor closely. Currently off pressors. 5. History of myocardial infarction with previous three-vessel coronary bypass graft 6. dementia continue Aricept 7. Essential hypertension continue metoprolol 8. Hyperlipidemia home medications 9. Left humeral neck fracture: Suspected comminuted fracture of the left humeral neck likely pathologic with suspected intraosseous bone lesion noted on CAT scan. Oncology and orthopedics have been consulted. discussed with infectious disease. If no findings noted on CLARIBEL they are recommending biopsy and culture of the lytic lesion. 10. Acute on chronic kidney disease stage III: Creatinine showing improvement. Nephrology is following. Avoid nephrotoxic meds. 11. Bacteremia: Cultures are growing MSSA. Blood culture from yesterday is negative so far. Case discussed with infectious disease. They're recommending a CLARIBEL due to bacteremia and positive murmur. No vegetation noted on echo. 12. Moderate pulmonary hypertension noted on echo 13. Moderate aortic stenosis noted on echo GI prophylaxis IV Protonix I performed an examination of the patient and discussed their management with the physician Tower Watchman. I have reviewed the Physician Tower Watchman's notes and agree with the documented findings and plan of care
--- NOTE | 2016-08-17 12:45 | PN ---
Patient is seen for followup for acute kidney injury secondary to ATN from hypotension, hypoperfusion. Patient's renal function has been improving. She was maintained on dopamine as she was hypotensive. However, she is currently off of dopamine since noon yesterday. Patient had also ruled in for an acute IL. She was septic with blood cultures positive for staph aureus and repeat cultures on 08/15 were also positive. A source has not been identified. Patient has a murmur. There is concern for possible endocarditis. She was having abdominal pain, which seems to have improved today. Patient also has left arm fracture noted on CT of her left arm. On examination, blood pressure is 127/73, heart rate 78 per minute. She is afebrile. EXAMINATION OF THE HEART: S1 and S2. EXAMINATION OF THE LUNGS: Bilateral breath sounds are heard. Decreased breath sounds at the bases. ABDOMEN: Soft, nontender. Examination of lower extremities shows trace edema. 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 Patient is moving all 4 extremities. Labs show sodium 136, potassium 5.1, chloride 108. CO2 is 18, BUN 50. serum creatinine 1.5. Hemoglobin 7.2 g/dL. ASSESSMENT: 1. Acute kidney injury, acute tubular necrosis from hypotension and sepsis, currently improving. Patient is nonoliguric. She is off of dopamine. She is not maintained on IV fluids. 2. Status post non-ST elevation myocardial infarction. 3. Bacteremia with blood cultures growing Staphylococcus aureus, repeat blood cultures on 08/15 also are growing staph. There is concern for endocarditis. 4. Fracture of left arm noted on the CT of the left humerus. 5. Gastrointestinal bleed, currently no active bleeding tentatively scheduled for endoscopy today. 6. Anemia from gastrointestinal bleed. No active bleeding noted, status post packed RBC transfusion initially. She may need more blood if her hemoglobin drops further. PLAN: Check chest x-ray today and discontinue IV fluids if there is evidence of pulmonary vascular congestion on the chest x-ray. Currently patient is maintained on normal saline at 50 mL an hour, which I started yesterday.
[2016-08-17 13:15] LABS: Free Kappa Lt Chain Qnt, Serum 1.81 mg/dL (0.33 - 1.94); Kappa/Lambda Light Chain Ratio 1.16 (0.26 - 1.65)
--- NOTE | 2016-08-17 13:20 | XR ---
EXAMINATION TYPE: XR chest 1V portable DATE OF EXAM: 08/17/2016 1:00 PM CLINICAL HISTORY: Difficulty breathing and CHF progress study. TECHNIQUE: Single AP portable upright view of the chest is obtained. COMPARISON: Chest x-ray from 3 days earlier FINDINGS: Sternal wires are present. There is cardiomegaly with atherosclerotic thoracic aorta. Ther e is worsening central vascular congestion and developing central alveolar and interstitial edema cinthia aterally. Small bilateral pleural effusions are now present. Comminuted fracture deformity left proxi mal humerus is redemonstrated, pathologic fracture suspected on recent CT. IMPRESSION: Findings consistent with CHF exacerbation as there is cardiomegaly with new small bilater al pleural effusions, worsening central vascular congestion and developing bilateral alveolar and int erstitial edema suspected.
[2016-08-17] MEDS: DOPamine DRIP 800 MG in DEXTROSE/WATER 1 500ML.BAG IV SCH (13:59)
--- NOTE | 2016-08-17 18:05 | P.CNOR ---
History of Present Illness - [facility] Consult date: 08/17/16 History of present illness: This is a an 80-year-old female admitted with severe abdominal pain. She has suspected GI bleed with acute blood loss anemia. He is currently in the intensive care unit. She has history of pathologic fracture to the left proximal humerus since April of this year. The patient is unable to tell me who she has seen for her fracture. She is a poor historian. We're consulted for orthopedic evaluation of her left shoulder. Past Medical History Past Medical History: Coronary Artery Disease (CAD), Diabetes Mellitus, GERD/ Reflux, Hyperlipidemia, Hypertension, Liver Disease, Myocardial Infarction ([place]) , Osteoarthritis (OA) Additional Past Medical History / Comment(s): Coronary artery disease, hypertension, diabetes mellitus, hyperlipidemia, recent fall following an episode of syncope during which the patient sustained a left humeral fracture, episodes of dysphagia, chronic anemia, history of small bowel obstruction related to a ultimately turned out to be benign and was resected, chronic renal failure with stage III kidney disease, CHF with diastolic dysfunction with an ejection fraction of 55-60% based on previous echocardiogram along with aortic stenosis, previous carotid bypass surgery, osteoarthritis Last Myocardial Infarction Date:: 2009 History of Any Multi-Drug Resistant Organisms: None Reported Past Surgical History: Adenoidectomy, Cholecystectomy, Coronary Bypass/CABG, Heart Catheterization, Tonsillectomy, Tubal Ligation Additional Past Surgical History / Comment(s): 2009 Cab[place] in [place], 04/16/10 colonoscopy with benign polypectomy, liver surgery-unkn what type, cataract removal bilaterally. Past Anesthesia/Blood Transfusion Reactions: Postoperative Nausea & Vomiting ( PONV) Past Psychological History: Depression Additional Psychological History / Comment(s): Pt has history of depression but states that was in the past and no longer an issue for her. She is . She lives alone. She uses a walker to ambulate. She does not drive-her family take her places. Patient states no changes to Smoking Status: Never smoker Past Alcohol Use History: None Reported Past Drug Use History: None Reported - Past Family History Father Family Medical History: Diabetes Mellitus Additional Family Medical History / Comment(s): Pt believes her father was diabetic. He had toes amputated. He in his 90s Mother Family Medical History: Unable to Obtain Additional Family Medical History / Comment(s): Pt knows that her mother was unhealthy but does not know what health problems she might have had. she at 87yrs. Medications and Allergies Home Medications Medication Instructions Recorded Confirmed Type Donepezil [Aricept] 10 mg PO HS 02/15/15 08/13/16 History Fenofibrate [Lofibra] 160 mg PO HS 02/15/15 08/13/16 History Pantoprazole Sodium [Protonix] 40 mg PO QAM 02/15/15 08/13/16 History Ascorbic Acid [Vitamin C] 500 mg PO HS 05/03/16 08/13/16 History Cetirizine HCl 10 mg PO DAILY PRN 05/03/16 08/13/16 History Cholecalciferol [Vitamin D3] 5,000 unit PO HS 05/03/16 08/13/16 History Clopidogrel [Plavix] 75 mg PO DAILY 05/03/16 08/13/16 History Furosemide [Lasix] 40 mg PO DAILY 05/03/16 08/13/16 History Metoprolol Tartrate [Lopressor] 25 mg PO HS 05/03/16 08/13/16 History Multivitamins, Thera [Multivitamin 1 tab PO HS 05/03/16 08/13/16 History (formulary)] Potassium Chloride ER [K-Dur 10] 10 meq PO HS 05/03/16 08/13/16 History Sennosides [Senna] 8.6 mg PO HS PRN 05/03/16 08/13/16 History Sertraline [Zoloft] 100 mg PO HS 05/03/16 08/13/16 History Nitroglycerin Sl Tabs [Nitrostat] 0.4 mg SUBLINGUAL Q5M PRN 05/30/16 08/13/16 History Ezetimibe [Zetia] 10 mg PO DAILY 08/13/16 08/13/16 History Allergies Allergy/AdvReac Type Severity Reaction Status Date / Time No Known Allergies Allergy Verified 08/13/16 08:10 Physical Examination This is an 80-year-old female in no acute distress. She is alert but confused. Exam the upper extremity reveals that the left shoulder is in a sling. She is able to wiggle her fingers. Any motion of the left shoulder is painful. Radial pulses +2/4. Neurovascular status to the upper extremity is intact. Exam of the lower extremities is unremarkable. No obvious pain with log roll bilateral hips. She has normal toe motion bilaterally. Neurovascular status to the lower extremities is intact. Results Computed tomography scan of the left shoulder reveals pathologic fracture of the left proximal humerus. There is a significant amount of bone loss at the lesion. There is complete cortical loss. There is not a recent plain film for evaluation. - Labs Labs: Abnormal Lab Results - Last 24 Hours (Table) 08/16/16 08/17/16 08/17/16 Range/Units 18:39 03:41 03:41 RBC 2.65 L (3.80-5.40) m/uL Hgb 7.2 L (11.4-16.0) gm/dL Hct 24.7 L (34.0-46.0) % MCHC 29.0 L (31.0-37.0) g/dL Lymphocytes # 0.6 L (1.0-4.8) k/uL Sodium 136 L (137-145) mmol/L Chloride 108 H (98-107) mmol/L Carbon Dioxide 18 L (22-30) mmol/L BUN 50 H (7-17) mg/dL Creatinine 1.50 H (0.52-1.04) mg/dL Glucose 130 H (74-99) mg/dL POC Glucose (mg/dL) 113 H (75-99) mg/dL Phosphorus 4.6 H (2.5-4.5) mg/dL Magnesium 2.6 H (1.6-2.3) mg/dL Total Protein 4.8 L (6.3-8.2) g/dL Albumin 2.5 L (3.5-5.0) g/dL 08/17/16 Range/Units 03:58 RBC (3.80-5.40) m/uL Hgb (11.4-16.0) gm/dL Hct (34.0-46.0) % MCHC (31.0-37.0) g/dL Lymphocytes # (1.0-4.8) k/uL Sodium (137-145) mmol/L Chloride (98-107) mmol/L Carbon Dioxide (22-30) mmol/L BUN (7-17) mg/dL Creatinine (0.52-1.04) mg/dL Glucose (74-99) mg/dL POC Glucose (mg/dL) 156 H (75-99) mg/dL Phosphorus (2.5-4.5) mg/dL Magnesium (1.6-2.3) mg/dL Total Protein (6.3-8.2) g/dL Albumin (3.5-5.0) g/dL Microbiology - Last 24 Hours (Table) 08/16/16 04:29 Blood Culture - Preliminary Blood No Growth after 24 hours 08/14/16 05:58 Blood Culture Gram Stain - Final Blood Blood Culture - Final Staphylococcus aureus 08/15/16 10:42 Blood Culture Gram Stain - Preliminary Blood Blood Culture - Preliminary Presumptive Staph aureus H & H 08/14/16 08/15/16 08/16/16 Range/Units 05:58 04:41 04:29 Hgb 7.1 L D 8.1 L 7.5 L (11.4-16.0) gm/dL Hct 24.6 L 27.2 L 25.4 L (34.0-46.0) % 08/17/16 Range/Units 03:41 Hgb 7.2 L (11.4-16.0) gm/dL Hct 24.7 L (34.0-46.0) % Result Diagrams: 08/17/16 03:41 08/17/16 03:41 Assessment and Plan (1) Humerus lesion, left Status: Acute (2) Acute blood loss anemia Status: Acute Plan: The clinical and radiographic findings are discussed with the patient and her nurse. The patient is a poor candidate for any surgical intervention. We discussed possibility of plating the fracture with bone graft versus intramedullary rodding which are both extensive surgeries which she most likely would not tolerate. We will continue sling for immobilization. We will follow peripherally.
[2016-08-17] MEDS: CHOLECALCIFEROL 1,000 UNIT TAB PO SCH (22:06)
[2016-08-17] MEDS: MULTIVITAMINS, THERA 1 EACH TAB PO SCH (22:06)
[2016-08-17] MEDS: SERTRALINE 100 MG TAB PO SCH (22:06)
[2016-08-17] MEDS: FENOFIBRATE 160 MG TAB PO SCH (22:06)
[2016-08-17] MEDS: DONEPEZIL 10 MG TAB PO SCH (22:06)
[2016-08-18] MEDS: SODIUM CHLORIDE 0.9% 1,000 ML IV SCH (08:00)
[2016-08-18] MEDS ORDERED: fentaNYL (PF) 50 MCG/ML 2 ML AMP ONE (08:12)
[2016-08-18] MEDS ORDERED: MIDAZOLAM 2 MG/2 ML VIAL ONE (08:12)
[2016-08-18] MEDS ORDERED: IV FLUID CONTINUATION 1,000 ML IV ONE (08:25)
[2016-08-18] MEDS: BENZOCAINE SPRAY 100 APPLIC/CAN MUCOUS MEM ONE ×2 (08:35→08:37)
[2016-08-18] MEDS ORDERED: fentaNYL (PF) 50 MCG/ML 2 ML AMP IV ONE (08:37)
[2016-08-18] MEDS ORDERED: MIDAZOLAM 2 MG/2 ML VIAL IV ONE (08:38)
--- NOTE | 2016-08-18 09:04 | P.PCN ---
Date of Procedure: 08/18/16 Preoperative Diagnosis: Staph septicemia. Rule out endocarditis Postoperative Diagnosis: No evidence of vegetation on any valves. Severe aortic stenosis. Moderate to severe mitral regurgitation. Moderate to severe pulmonary hypertension Procedure(s) Performed: Transesophageal echocardiogram Implants: Indications for Procedure: Operative Findings: Description of Procedure: INDICATION : To assess and rule out endocarditis and vegetations on the valves. CONSENT: Verbal consent was obtained PROCEDURE: Patient was brought to the lab in a fasting state. Patient was given IV Versed after milligrams and fentanyl 25 mg. Conscious sedation. Duration was about 14 minutes. The throat was sprayed with Cetacaine. Omni probe was introduced in the oropharynx and was advanced into the esophagus. Multiple views were obtained. Patient tolerated the procedure well. Saline bubble injections were performed and color Doppler study was also performed. FINDINGS: The aortic valve is calcified, which appears to be trileaflet. By planimetry valve area of about 0.5 to 0 0.7 cm was obtained which is sized to severe aortic stenosis. The peak gradient of 45-50 was obtained with a mean of 25-30, which may be an underestimation. There is moderate to severe mitral regurgitation. There is calcification of the mitral anulus. There is moderate to severe tricuspid regurgitation. The calculated peak right ventricle systolic blood pressure 60-70. There is no evidence of PFO. Saline bubble injections study was negative. Atrial appendage is free of any clot. Left ventricle function appeared well preserved. There is bi-atrial enlargement IMPRESSION: #1. Calcific severe aortic stenosis. #2. Moderate to severe mitral regurgitation. #3. No PFO #4. No clot in the left atrial appendage. # 56 moderate to severe tricuspid regurgitation. #4. Moderate to severe pulmonary hypertension PLAN: Maximum medical therapy. If patient clinical situation improves, aortic valve replacement with TAVR approach could be considered.
--- NOTE | 2016-08-18 10:27 | P.PN ---
Subjective Principal diagnosis: Anemia sepsis bacteremia Reevaluated today in regards to anemia and GI bleeding. Nursing reports no evidence of GI bleeding. Status post CLARIBEL this morning with no evidence of vegetation on valves with severe aortic stenosis. Left humerus fracture with reports of lytic lesion. Hemoglobin yesterday 7.2. Refusing colonoscopy. Objective - Vital Signs Vital signs: Vital Signs Temp 98.2 F 08/18/16 07:00 Pulse 85 08/18/16 08:51 Resp 16 08/18/16 08:51 BP 133/64 08/18/16 08:51 Pulse Ox 95 08/18/16 08:51 Intake & Output 08/17/16 08/18/16 08/18/16 18:59 06:59 18:59 Intake Total 400 500 125 Output Total 945 800 Balance -545 -300 125 Intake: IV 125 Intake, IV Titration 400 Amount Sodium Chloride 0.9% 1, 400 000 ml @ 50 mls/hr IV . Q20H [facility] Rx#:[id number] Oral 500 Output: Urine 345 800 Stool 600 Other: Voiding Method Indwelling Catheter Indwelling Catheter # Bowel Movements 0 - Exam General appearance: The patient is alert, no acute distress week pale.. HET: Head is normocephalic and atraumatic. Pupils are equal and reactive. Oropharynx is clear without lesions. Neck: Supple without lymphadenopathy. Trachea midline. Heart: S1 S2. Regular rate and rhythm. Lungs: No crackles or wheezes are heard. Abdomen: Soft, mildly bloated with diffuse mild tenderness across mid abdomen with bowel sounds. No peritoneal signs. No palpable organomegaly or masses. Extremities: Left arm sling. Neurological: No focal deficits. Strength and sensation are grossly intact. - Labs CBC & Chem 7: 08/17/16 03:41 08/17/16 03:41 Labs: Abnormal Lab Results - Last 24 Hours (Table) 08/14/16 Range/Units 05:58 RBC Folate >2,191 H (280 - 791) ng/mL Microbiology - Last 24 Hours (Table) 08/16/16 04:29 Blood Culture - Preliminary Blood No Growth after 48 hours 08/15/16 10:42 Blood Culture Gram Stain - Final Blood Blood Culture - Final Staphylococcus aureus Assessment and Plan Plan: 1. Normocytic hypochromic iron deficiency anemia suspect component of acute blood loss possible GI bleed without overt bleeding at this time. 2. History of recent GI bleed anemia status post EGD May 2016 with findings of mild diffuse gastritis. Colonoscopy 2010 polypectomy. 3. Bacteremia with Staphylococcus aureus blood cultures. Status post CLARIBEL. 4. Status post fall 3 months ago with possible lytic lesion left humerus. Cannot rule out underlying malignancy. 5. Non-ST elevated [place]. 6. Congestive heart failure. 7. Fever possible UTI. Plan: 1. Hemoccult stool testing requested with additional stool studies; no bowel movements to evaluate 2. Observe for overt GI bleeding. Antiplatelet medications on hold. 3. Continue to monitor CBC. Transfuse as indicated. 4. IV Protonix 40 mg daily. 5. Oncology following. 6. Colonoscopy contingent on clinical course at this time patient is profoundly weak with moderate left upper extremity pain which would make it difficult to proceed with bowel prep at this time. She is also declining colonoscopy. Nursing will discuss with her son the need for colonoscopy. We will observe closely and decide timing of inpatient colonoscopy if necessary. Assessment and plan of care discussed with Dr. Goldberg
[2016-08-18] MEDS: ceFAZolin 2 GM in SODIUM CHLORIDE 0.9% 100 ML IVPB SCH ×2 (10:36→15:24)
[2016-08-18] MEDS: DOCUSATE 100 MG CAP PO SCH (10:38)
[2016-08-18] MEDS: EZETIMIBE 10 MG TAB PO SCH (10:38)
[2016-08-18] MEDS: POLYETHYLENE GLYCOL 3350 17 GM POWD.PACK PO SCH (10:38)
[2016-08-18] MEDS: PANTOPRAZOLE 40 MG/10 ML VIAL IVP SCH (10:38)
--- NOTE | 2016-08-18 11:25 | P.PN ---
Subjective Patient is seen in follow-up for acute kidney injury. Her baseline creatinine is 1 and peaked at 2.29 this admission. It was down to 1.5 as of yesterday. Patient's currently being treated for staph aureus bacteremia. There was concern for endocarditis and she underwent a CLARIBEL which revealed no vegetations however she does have severe aortic stenosis, moderate to severe mitral regurgitation and pulmonary hypertension. Patient is not a very reliable historian. She is nonoliguric. Vital signs are stable. General: The patient appeared well nourished and normally developed. HEENT: Head exam is unremarkable. Neck is without jugular venous distension. LUNGS: Lungs are clear to auscultation and percussion. Breath sounds decreased. HEART: Rate and Rhythm are regular. First and second heart sounds normal. No murmurs, rubs or gallops. ABDOMEN: Abdominal exam reveals normal bowel sounds. Non-tender and non- distended. No evidence of peritonitis. EXTREMITITES: No clubbing, cyanosis, or edema. Objective - Vital Signs Vital signs: Vital Signs Temp 98.2 F 08/18/16 07:00 Pulse 85 08/18/16 08:51 Resp 16 08/18/16 08:51 BP 133/64 08/18/16 08:51 Pulse Ox 95 08/18/16 08:51 Intake & Output 08/17/16 08/18/16 08/18/16 18:59 06:59 18:59 Intake Total 400 500 125 Output Total 945 800 Balance -545 -300 125 Intake: IV 125 Intake, IV Titration 400 Amount Sodium Chloride 0.9% 1, 400 000 ml @ 50 mls/hr IV . Q20H [facility] Rx#:[id number] Oral 500 Output: Urine 345 800 Stool 600 Other: Voiding Method Indwelling Catheter Indwelling Catheter Indwelling Catheter # Bowel Movements 0 - Labs CBC & Chem 7: 08/17/16 03:41 08/17/16 03:41 Labs: Abnormal Lab Results - Last 24 Hours (Table) 08/14/16 08/14/16 Range/Units 05:58 05:58 Total Protein (PEP) 5.8 L (6.2-8.2) g/dL Albumin (PEP) 3.49 L (3.80-4.90) g/dL Gamma Globulins 0.52 L (0.70-1.50) g/dL RBC Folate >2,191 H (280 - 791) ng/mL Microbiology - Last 24 Hours (Table) 08/16/16 04:29 Blood Culture - Preliminary Blood No Growth after 48 hours 08/15/16 10:42 Blood Culture Gram Stain - Final Blood Blood Culture - Final Staphylococcus aureus Assessment and Plan Plan: Assessment: #1. Nonoliguric acute kidney injury secondary to ischemic ATN secondary to severe sepsis. Improving. Creatinine down to 1.5 as of yesterday. #2. Volume overload as evidenced by vascular congestion on chest x-ray. #3. Severe aortic stenosis and moderate to severe mitral regurgitation. #4. Moderate to severe pulmonary hypertension. #5. Staph aureus bacteremia. #6. Anemia due to questionable GI bleed. Apparently she's been refusing colonoscopy. Plan: Hep-Lock IV fluids. Encourage oral intake. Avoid nephrotoxic agents and hypotensive episodes. Repeat electrolytes in the morning. Antibiotics per infectious disease recommendations.
--- NOTE | 2016-08-18 12:34 | P.PN ---
Subjective Principal diagnosis: Non ST elevation myocardial infarction, anemia 80-year-old female patient who initially presented on 08/13/2016 because of increased shortness of breath. The patient was ruled in for an acute non-ST segment elevation myocardial infarction. The patient is known to have coronary artery disease with previous bypass surgery. Other comorbid conditions include hypertension diabetes mellitus and hyperlipidemia and congestion heart failure. During this current hospitalization, the patient was also found to be septic with MRSA bacteremia, acute kidney injury secondary to acute ischemic trigger necrosis, sepsis, hypotension, pressor dependence, an acute transfusion reaction secondary to her packed RBC transfusion for which the patient was given for a low hemoglobin. The patient was also suspected to have a fracture of the left humerus. A CAT scan was done yesterday showed a comminuted fracture of the left humeral neck, and pathologic fracture was suspected with a concern of an underlying malignancy. There was soft tissue thickening in the area which could be related to edema post fracture or soft tissue mass. Note that I have seen this patient back in May 2016 for chest pain and suspected GI bleeding and back then was noted the patient sustained a fracture to her left humerus and this was being treated conservatively and she did not require any surgical intervention. The patient also is known to have history of syncope during which she did have had sustained the left humeral fracture, episodes of dysphagia, chronic anemia, small bowel obstruction related to a benign lesion of the intestine that was resected, chronic renal failure stage III kidney disease, CHF with diastolic dysfunction and ejection fraction of 55- 60%, aortic stenosis and previous coronary artery bypass surgery. On 08/17/2016 I'm seeing this patient in follow-up. The patient is resting comfortably in bed. The patient has no respiratory distress. Hemodynamically she is stable and the patient has been off dopamine for more than 12 hours. She is producing adequate amount of urine output. Her pulse ox is around 98% on 2 L of oxygen nasal cannula. She has a cardiac murmur which is related to aortic stenosis. As mentioned earlier, the patient had staph aureus Ammann MSSA and the blood, on 3 different blood cultures and the most recent blood cultures negative. For that reason, the patient was covered with cefazolin 2 g every 12 hours. Renal function is improving and creatinine is down to 1.5. Rest of the electrolytes show no major abnormalities. The patient continues to have a component of non-anion gap metabolic acidosis with a bicarb level of 18. The chest x-ray from admission showed evidence of any pneumonia. Echocardiogram from May 2016 showed a ejection fraction of 55-60% along with moderate degree of aortic stenosis. The patient is seen again today 08/18/2016 in follow-up on the regular medical floor. She is awake and alert in no acute distress. She did undergo transesophageal echocardiogram yesterday. There is no evidence of vegetation on any of the valves. There was noted severe aortic stenosis with moderate to severe mitral regurgitation and moderate to severe pulmonary hypertension. Today she denies any worsening shortness of breath. She is maintaining good O2 saturations in the mid 90s on 2 L/m per nasal cannula. She's been hemodynamically stable. She remains on cefazolin. Bicarb remains low at 18. She remains on sodium bicarbonate tablets. She remains in a negative balance. Creatinine improved to 1.50. Her hemoglobin is drifting down currently at 7.2. Objective - Vital Signs Vital signs: Vital Signs Temp 98.2 F 08/18/16 07:00 Pulse 85 08/18/16 08:51 Resp 16 08/18/16 08:51 BP 133/64 08/18/16 08:51 Pulse Ox 95 08/18/16 08:51 Intake & Output 08/17/16 08/18/16 08/18/16 18:59 06:59 18:59 Intake Total 400 500 125 Output Total 945 800 Balance -545 -300 125 Intake: IV 125 Intake, IV Titration 400 Amount Sodium Chloride 0.9% 1, 400 000 ml @ 50 mls/hr IV . Q20H ALBA Rx#:[id number] Oral 500 Output: Urine 345 800 Stool 600 Other: Voiding Method Indwelling Catheter Indwelling Catheter Indwelling Catheter # Bowel Movements 0 - Exam GENERAL EXAM: Weak, pale. EYES: Normal reaction of pupils, equal size. NOSE: Clear with pink turbinates. THROAT: No erythema or exudates. NECK: No masses, no JVD. CHEST: No chest wall deformity. LUNGS: Equal air entry with crackles in the posterior bases more so on the left. CVS: S1 and S2 normal with an audible murmur, regular rhythm. ABDOMEN: No hepatosplenomegaly, normal bowel sounds, no guarding or rigidity. Extremities: There is 1+ peripheral edema. No clubbing, no cyanosis. Peripheral pulses are intact. - Labs CBC & Chem 7: 08/17/16 03:41 08/17/16 03:41 Labs: Abnormal Lab Results - Last 24 Hours (Table) 08/14/16 08/14/16 Range/Units 05:58 05:58 Total Protein (PEP) 5.8 L (6.2-8.2) g/dL Albumin (PEP) 3.49 L (3.80-4.90) g/dL Gamma Globulins 0.52 L (0.70-1.50) g/dL RBC Folate >2,191 H (280 - 791) ng/mL Microbiology - Last 24 Hours (Table) 08/16/16 04:29 Blood Culture - Preliminary Blood No Growth after 48 hours 08/15/16 10:42 Blood Culture Gram Stain - Final Blood Blood Culture - Final Staphylococcus aureus Assessment and Plan Plan: Impression: #1 Non-ST segment elevation myocardial infarction. #2 Anemia, suspect possible GI bleed in a patient with recent EGD in May 2016, and last colonoscopy 2010. #3 Sepsis secondary to presumptive Staphylococcus aureus. #4 Febrile illness secondary to above and suspected urinary tract infection as well. #5 Acute exacerbation of diastolic congestive heart failure. #6 Hyperlipidemia. #7 Diabetes mellitus. #8 Hypertension. #9 History of coronary artery disease with previous coronary artery bypass grafting. #10 Left upper extremity pain secondary to recent left humeral fracture. #11 Valvular heart disease with severe aortic stenosis, moderate to severe mitral regurgitation, moderate to severe pulmonary hypertension. #12 Acute kidney injury secondary to hypotension/hypo-profusion. Plan: The patient was seen and evaluated by Dr. Matos. She remains on cefazolin. CLARIBEL showed no vegetation. Continue with her other medications. Her renal function is improving current creatinine 1.50. Nephrology is on the case. Cardiology is on the case as well and recommends medical treatment for now. If the patient's prognosis improves possible TAVR procedure down the road.
[2016-08-18] MEDS: HYDROmorphone 1 MG/ML 1 ML SYRINGE IVP PRN ×2 (13:19→21:02)
[2016-08-18] MEDS: SODIUM BICARBONATE TAB 650 MG TAB PO SCH ×3 (13:41→22:29)
--- NOTE | 2016-08-18 13:51 | P.PN ---
Objective - Vital Signs Vital signs: Vital Signs Temp 98.2 F 08/18/16 07:00 Pulse 85 08/18/16 08:51 Resp 16 08/18/16 08:51 BP 133/64 08/18/16 08:51 Pulse Ox 95 08/18/16 08:51 Intake & Output 08/17/16 08/18/16 08/18/16 18:59 06:59 18:59 Intake Total 400 500 125 Output Total 945 800 Balance -545 -300 125 Intake: IV 125 Intake, IV Titration 400 Amount Sodium Chloride 0.9% 1, 400 000 ml @ 50 mls/hr IV . Q20H ALBA Rx#:[id number] Oral 500 Output: Urine 345 800 Stool 600 Other: Voiding Method Indwelling Catheter Indwelling Catheter Indwelling Catheter # Bowel Movements 0 - Exam In general patient is alert and oriented 3 in no apparent distress HEENT head normocephalic and atraumatic Neck is supple no JVD no goiter no lymphadenopathy Chest exam reveals a few scattered rhonchi no wheezing Cardiac exam reveals regular heart sounds S1 and S2 with mild tachycardia no gallops no murmurs Abdomen is soft nontender no organomegaly Extremity exam reveals no edema no cyanosis or clubbing - Labs CBC & Chem 7: 08/17/16 03:41 08/17/16 03:41 Labs: Abnormal Lab Results - Last 24 Hours (Table) 08/14/16 08/14/16 Range/Units 05:58 05:58 Total Protein (PEP) 5.8 L (6.2-8.2) g/dL Albumin (PEP) 3.49 L (3.80-4.90) g/dL Gamma Globulins 0.52 L (0.70-1.50) g/dL RBC Folate >2,191 H (280 - 791) ng/mL Microbiology - Last 24 Hours (Table) 08/16/16 04:29 Blood Culture - Preliminary Blood No Growth after 48 hours 08/15/16 10:42 Blood Culture Gram Stain - Final Blood Blood Culture - Final Staphylococcus aureus Assessment and Plan Plan: #1 Non-ST segment elevation myocardial infarction. Evaluated by cardiology during this admission #2 Anemia, suspect possible GI bleed in a patient with recent EGD in May 2016, and last colonoscopy 2010. Gastroenterology following, will proceed with colonoscopy when general medical condition improves. #3 Sepsis, blood culture positive for Staphylococcus aureus. Currently maintained on IV vancomycin #4 Febrile illness secondary to above and suspected urinary tract infection as well. #5 Acute exacerbation of diastolic congestive heart failure. #6 Hyperlipidemia. #7 Diabetes mellitus. #8 Hypertension. #9 History of coronary artery disease with previous coronary artery bypass grafting. #10 Left upper extremity pain secondary to recent left humeral fracture. #11 Valvular heart disease with severe aortic stenosis, moderate to severe mitral regurgitation, moderate to severe pulmonary hypertension. #12 Acute kidney injury secondary to hypotension and hypoprofusion improved creatinine down to 1.5 yesterday, will recheck labs
--- NOTE | 2016-08-18 13:57 | US ---
EXAMINATION TYPE: US extremity nonvasc mass LT DATE OF EXAM: 08/18/2016 1:25 PM COMPARISON: CT CLINICAL HISTORY: Dr Mcknight ordered Biopsy and culture Lt humerus. Abnormal CT Left upper arm just inferior to left shoulder shows a vascular, hypoechoic area= 5.0 x 4.1 x 4.0 c m ?correlates with CT findings IMPRESSION: Masslike area at the site of the proximal left humeral fracture. Underlying infection is not excluded.
[2016-08-18] MEDS ORDERED: LIDOCAINE 2% INJ 20 MG/ML SQ ONE (14:30)
[2016-08-18 15:36] LABS: Glucose,Whole Blood 169 mg/dL (75-99)
[2016-08-18 15:52] LABS: Basophils % (A) 0 %; CH 26.4; CHCM 29.3; Eosinophils # (A) 0.2 k/uL (0-0.7); Eosinophils % (A) 2 %; HCT 24.7 % (34.0-46.0); HDW 3.15; HGB 7.5 gm/dL (11.4-16.0); Hypochromasia Marked; Luc # (Auto) 0.18; Luc % (Auto) 2; Lymphocytes # (A) 0.5 k/uL (1.0-4.8); Lymphocytes % (A) 6 %; MCH 27.5 pg (25.0-35.0); MCHC 30.5 g/dL (31.0-37.0); MCV 90.4 fL (80.0-100.0); Mean Platelet Volume 7.3; Monocytes # (A) 0.7 k/uL (0-1.0); Monocytes % (A) 7 %; Neutrophils % (A) 84 %; RBC 2.73 m/uL (3.80-5.40); RDW 14.9 % (11.5-15.5); WBC 9.6 k/uL (3.8-10.6); WBC (Perox) 9.26
--- NOTE | 2016-08-18 16:57 | PN ---
DATE OF SERVICE: 08/18/2016 REASON FOR FOLLOWUP: MSSA bacteremia. INTERVAL HISTORY: The patient is afebrile. She is breathing comfortably. Denies significant chest pain or cough. No abdominal pain and no diarrhea. No worsening pain in the left shoulder area. On examination, blood pressure is 133/64 with a pulse of 85, temperature 98. She is 95% on 2 L nasal cannula. General description is an elderly female lying in bed in no distress. RESPIRATORY SYSTEM: Unlabored breathing. Clear to auscultation anteriorly. HEART: S1, S2. Regular rate and rhythm. ABDOMEN: Soft. No tenderness. EXTREMITIES: No edema of the feet. LABS: No new labs have been obtained today. Blood cultures 08/16 have been negative. DIAGNOSTIC IMPRESSION AND PLAN: Patient with a methicillin-susceptible Staphylococcus aureus bacteremia which has been persistent from 08/13 to 08/15 with concern about possible endovascular source of deep infection. Patient did have a 2-D echocardiogram as well as a CLARIBEL that have been negative for endocarditis. The patient's CT and x-rays were reviewed with the radiologist of the left humerus area, where the patient did have significant destruction and swelling with a question of possible seeding by MSSA of the fracture site with resultant osteomyelitis being the likely source; needs to be excluded. After discussion of the case with the radiologist, we did order CT-guided drainage of this area, which should be sent for both biopsy and culture. Did page Orthopedics to discuss the case. Waiting for their call back.
[2016-08-18] MEDS: SERTRALINE 100 MG TAB PO SCH (21:06)
[2016-08-18] MEDS: MULTIVITAMINS, THERA 1 EACH TAB PO SCH (21:06)
[2016-08-18] MEDS: FENOFIBRATE 160 MG TAB PO SCH (21:06)
[2016-08-18] MEDS: DONEPEZIL 10 MG TAB PO SCH (21:07)
[2016-08-18] MEDS: CHOLECALCIFEROL 1,000 UNIT TAB PO SCH (21:07)
[2016-08-19] MEDS: HYDROmorphone 1 MG/ML 1 ML SYRINGE IVP PRN ×5 (00:52→21:28)
[2016-08-19] MEDS: ceFAZolin 2 GM in SODIUM CHLORIDE 0.9% 100 ML IVPB SCH ×3 (00:53→16:01)
[2016-08-19] MEDS: SODIUM BICARBONATE TAB 650 MG TAB PO SCH ×4 (01:02→22:43)
[2016-08-19] MEDS: PANTOPRAZOLE 40 MG/10 ML VIAL IVP SCH (07:52)
[2016-08-19] MEDS: EZETIMIBE 10 MG TAB PO SCH (07:52)
[2016-08-19] MEDS: POLYETHYLENE GLYCOL 3350 17 GM POWD.PACK PO SCH (07:53)
[2016-08-19] MEDS: DOCUSATE 100 MG CAP PO SCH (07:53)
[2016-08-19 09:38] LABS: Basophils % (A) 0 %; CH 26.5; CHCM 28.2; Eosinophils # (A) 0.1 k/uL (0-0.7); Eosinophils % (A) 1 %; HCT 25.9 % (34.0-46.0); HDW 2.89; HGB 7.4 gm/dL (11.4-16.0); Hypochromasia Marked; Luc % (Auto) 2; Lymphocytes # (A) 0.6 k/uL (1.0-4.8); Lymphocytes % (A) 7 %; MCHC 28.7 g/dL (31.0-37.0); MCV 94.1 fL (80.0-100.0); Mean Platelet Volume 6.9; Monocytes # (A) 0.8 k/uL (0-1.0); Monocytes % (A) 9 %; Neutrophils # (A) 7.7 k/uL (1.3-7.7); Neutrophils % (A) 82 %; RBC 2.75 m/uL (3.80-5.40); RDW 15.4 % (11.5-15.5); WBC 9.5 k/uL (3.8-10.6); WBC (Perox) 10.11
[2016-08-19 10:12] LABS: ALT 20 U/L (9-52); AST 18 U/L (14-36); Alkaline Phosphatase 108 U/L (38-126); Anion Gap 12 mmol/L; Blood Urea Nitrogen 39 mg/dL (7-17); Calcium 9.2 mg/dL (8.4-10.2); Carbon Dioxide 20 mmol/L (22-30); Chloride 111 mmol/L (98-107); Glucose 171 mg/dL (74-99); Non-African American GFR(MDRD) >60 (>60 ml/min/1.73 sqM); Potassium 4.9 mmol/L (3.5-5.1); Sodium 143 mmol/L (137-145); Total Bilirubin 0.3 mg/dL (0.2-1.3); Total Protein 5.3 g/dL (6.3-8.2)
[2016-08-19 15:11] LABS: Creatine Kinase <20 U/L (30-135)
[2016-08-19 15:21] LABS: Creatine Kinase MB 1.2 ng/mL (0.0-2.4)
--- NOTE | 2016-08-19 15:41 | PN ---
DATE OF SERVICE: 08/19/2016 Reason for follow-up is MSSA bacteremia with question of left humerus osteo. INTERVAL HISTORY: The patient is afebrile. She is currently feeling better. Breathing comfortably. Denies significant chest pain. Occasional cough. Some pain in the left humerus area, but unable to characterize further. No abdominal pain and no diarrhea. On examination, blood pressure is 193/86 with a pulse of 99, temperature 98.2. She is 96% on 2-L nasal cannula. General description is an elderly female, lying in bed in no distress. RESPIRATORY SYSTEM: Unlabored breathing. Clear to auscultation anteriorly. HEART: S1, S2. Regular rate and rhythm. ABDOMEN: Soft, no tenderness. LABS: Hemoglobin is 7.4, white count 9.5. BUN of 39, creatinine 0.85. Blood culture repeat on 08/16 negative. The patient did have a CT guided aspirate of the left humerus area which is currently pending. DIAGNOSTIC IMPRESSION AND PLAN: Patient with MSSA bacteremia and the patient did have extensive work-up, 2-D echocardiogram as well as CLARIBLE was negative. Patient did have significant abnormality on the humerus CT with the previous site of fracture done back in May. A CT guided aspirate of the area has been done. Will wait for them to be finalized. The patient will continue cefazolin. She will likely need IV antibiotic therapy for which a PICC line will be ordered for Wednesday. Continue supportive care.
--- NOTE | 2016-08-19 16:57 | P.PN ---
Subjective Principal diagnosis: Non ST elevation myocardial infarction, anemia 80-year-old female patient who initially presented on 08/13/2016 because of increased shortness of breath. The patient was ruled in for an acute non-ST segment elevation myocardial infarction. The patient is known to have coronary artery disease with previous bypass surgery. Other comorbid conditions include hypertension diabetes mellitus and hyperlipidemia and congestion heart failure. During this current hospitalization, the patient was also found to be septic with MRSA bacteremia, acute kidney injury secondary to acute ischemic trigger necrosis, sepsis, hypotension, pressor dependence, an acute transfusion reaction secondary to her packed RBC transfusion for which the patient was given for a low hemoglobin. The patient was also suspected to have a fracture of the left humerus. A CAT scan was done yesterday showed a comminuted fracture of the left humeral neck, and pathologic fracture was suspected with a concern of an underlying malignancy. There was soft tissue thickening in the area which could be related to edema post fracture or soft tissue mass. Note that I have seen this patient back in May 2016 for chest pain and suspected GI bleeding and back then was noted the patient sustained a fracture to her left humerus and this was being treated conservatively and she did not require any surgical intervention. The patient also is known to have history of syncope during which she did have had sustained the left humeral fracture, episodes of dysphagia, chronic anemia, small bowel obstruction related to a benign lesion of the intestine that was resected, chronic renal failure stage III kidney disease, CHF with diastolic dysfunction and ejection fraction of 55- 60%, aortic stenosis and previous coronary artery bypass surgery. On 08/17/2016 I'm seeing this patient in follow-up. The patient is resting comfortably in bed. The patient has no respiratory distress. Hemodynamically she is stable and the patient has been off dopamine for more than 12 hours. She is producing adequate amount of urine output. Her pulse ox is around 98% on 2 L of oxygen nasal cannula. She has a cardiac murmur which is related to aortic stenosis. As mentioned earlier, the patient had staph aureus Ammann MSSA and the blood, on 3 different blood cultures and the most recent blood cultures negative. For that reason, the patient was covered with cefazolin 2 g every 12 hours. Renal function is improving and creatinine is down to 1.5. Rest of the electrolytes show no major abnormalities. The patient continues to have a component of non-anion gap metabolic acidosis with a bicarb level of 18. The chest x-ray from admission showed evidence of any pneumonia. Echocardiogram from May 2016 showed a ejection fraction of 55-60% along with moderate degree of aortic stenosis. The patient is seen again today 08/18/2016 in follow-up on the regular medical floor. She is awake and alert in no acute distress. She did undergo transesophageal echocardiogram yesterday. There is no evidence of vegetation on any of the valves. There was noted severe aortic stenosis with moderate to severe mitral regurgitation and moderate to severe pulmonary hypertension. Today she denies any worsening shortness of breath. She is maintaining good O2 saturations in the mid 90s on 2 L/m per nasal cannula. She's been hemodynamically stable. She remains on cefazolin. Bicarb remains low at 18. She remains on sodium bicarbonate tablets. She remains in a negative balance. Creatinine improved to 1.50. Her hemoglobin is drifting down currently at 7.2. The patient is seen again today 08/19/2016 in follow-up on the regular medical floor. She is continuing to maintain O2 saturations in the 90s on 2 L/m. Nasal cannula. She is currently afebrile. No leukocytosis. Hemoglobin stable at 7.4. Bicarb is improved slightly at 20. Creatinine has recovered to 0.85. She did have a biopsy of the left shoulder results of which are pending. She still has significant discomfort in that shoulder. Objective - Vital Signs Vital signs: Vital Signs Temp 98.2 F 08/19/16 07:00 Pulse 99 08/19/16 07:00 Resp 20 08/19/16 07:00 BP 193/86 08/19/16 07:10 Pulse Ox 96 08/19/16 07:00 Intake & Output 08/18/16 08/19/16 08/19/16 18:59 06:59 18:59 Intake Total 125 60 Output Total 1650 Balance 125 -1590 Intake: IV 125 Oral 60 Output: Urine 1650 Other: Voiding Method Indwelling Catheter Indwelling Catheter Indwelling Catheter - Exam GENERAL EXAM: Weak, pale. EYES: Normal reaction of pupils, equal size. NOSE: Clear with pink turbinates. THROAT: No erythema or exudates. NECK: No masses, no JVD. CHEST: No chest wall deformity. LUNGS: Equal air entry with crackles in the posterior bases more so on the left. CVS: S1 and S2 normal with an audible murmur, regular rhythm. ABDOMEN: No hepatosplenomegaly, normal bowel sounds, no guarding or rigidity. Extremities: There is 1+ peripheral edema. No clubbing, no cyanosis. Peripheral pulses are intact. - Labs CBC & Chem 7: 08/19/16 09:02 08/19/16 09:02 Labs: Abnormal Lab Results - Last 24 Hours (Table) 08/19/16 08/19/16 08/19/16 Range/Units 09:02 09:02 14:21 RBC 2.75 L (3.80-5.40) m/uL Hgb 7.4 L (11.4-16.0) gm/dL Hct 25.9 L (34.0-46.0) % MCHC 28.7 L (31.0-37.0) g/dL Plt Count 497 H (150-450) k/uL Lymphocytes # 0.6 L (1.0-4.8) k/uL Chloride 111 H (98-107) mmol/L Carbon Dioxide 20 L (22-30) mmol/L BUN 39 H (7-17) mg/dL Glucose 171 H (74-99) mg/dL Total Creatine Kinase <20 L (30-135) U/L Total Protein 5.3 L (6.3-8.2) g/dL Albumin 2.7 L (3.5-5.0) g/dL Microbiology - Last 24 Hours (Table) 08/18/16 14:40 Gram Stain - Preliminary Aspirate Body Fluid Culture - Preliminary 08/16/16 04:29 Blood Culture - Preliminary Blood No Growth after 72 hours 08/18/16 14:40 Anaerobic Culture - Preliminary Aspirate Assessment and Plan Plan: Impression: #1 Non-ST segment elevation myocardial infarction. #2 Anemia, suspect possible GI bleed in a patient with recent EGD in May 2016, and last colonoscopy 2010. #3 Sepsis secondary to presumptive Staphylococcus aureus. #4 Febrile illness secondary to above and suspected urinary tract infection as well. #5 Acute exacerbation of diastolic congestive heart failure. #6 Hyperlipidemia. #7 Diabetes mellitus. #8 Hypertension. #9 History of coronary artery disease with previous coronary artery bypass grafting. #10 Left upper extremity pain secondary to recent left humeral fracture. #11 Valvular heart disease with severe aortic stenosis, moderate to severe mitral regurgitation, moderate to severe pulmonary hypertension. #12 Acute kidney injury secondary to hypotension/hypo-profusion. Plan: The patient was seen and evaluated by Dr. Matos. She remains on cefazolin. Continue with her other medications including and sodium bicarbonate. She has been slow to progress based on her multiple above-mentioned comorbidities. A biopsy of the left shoulder is pending as well. We will continue to follow.
[2016-08-19] MEDS ORDERED: HEPARIN SODIUM,PORCINE 5,000 UNIT/ML 1 ML VIAL IV ONE (18:02)
[2016-08-19] MEDS ORDERED: HEPARIN SODIUM,PORCINE 5,000 UNIT/ML 1 ML VIAL IV PRN (18:02)
[2016-08-19] MEDS ORDERED: HEPARIN SODIUM,PORCINE/D5W PMX 25,000 UNIT in DEXTROSE/WATER 1 500ML.BAG IV SCH (18:15)
--- NOTE | 2016-08-19 18:15 | P.PN ---
Subjective This is a 80-year-old female, patient of [facility]. She has a known past medical history of myocardial infarction and three-vessel coronary artery bypass graft, coronary artery disease, hyperlipidemia, hypertension, diabetes, chronic kidney disease and dementia. Also history of anemia with recent EGD and May 2016 revealing gastritis colonoscopy was several years ago. She presents to the hospital with complaints of chest pain, abdominal pain , black stools with episodes of diarrhea. She's found have evidence of a non- ST elevated TX. Not able to be on aspirin or IV heparin at this time due to her significant anemia. Patient is found to have a UTI as well as positive blood cultures growing presumptive staph aureus. Patient was reevaluated again on 08/19/2016 Today patient is complaining of chest pain, she will be transferred back to telemetry floor, order stool restart IV heparin and to reconsult cardiology were initiated Objective - Vital Signs Vital signs: Vital Signs Temp 98.3 F 08/19/16 15:00 Pulse 118 H 08/19/16 15:00 Resp 21 08/19/16 15:00 BP 160/93 08/19/16 15:00 Pulse Ox 94 L 08/19/16 15:00 Intake & Output 08/18/16 08/19/16 08/19/16 18:59 06:59 18:59 Intake Total 125 60 Output Total 1650 Balance 125 -1590 Intake: IV 125 Oral 60 Output: Urine 1650 Other: Voiding Method Indwelling Catheter Indwelling Catheter Indwelling Catheter - Exam In general patient is alert and oriented 3 in no apparent distress HEENT head normocephalic and atraumatic Neck is supple no JVD no goiter no lymphadenopathy Chest exam reveals a few scattered rhonchi no wheezing Cardiac exam reveals regular heart sounds S1 and S2 with mild tachycardia no gallops no murmurs Abdomen is soft nontender no organomegaly Extremity exam reveals no edema no cyanosis or clubbing - Labs CBC & Chem 7: 08/19/16 09:02 08/19/16 09:02 Labs: Abnormal Lab Results - Last 24 Hours (Table) 08/19/16 08/19/16 08/19/16 Range/Units 09:02 09:02 14:21 RBC 2.75 L (3.80-5.40) m/uL Hgb 7.4 L (11.4-16.0) gm/dL Hct 25.9 L (34.0-46.0) % MCHC 28.7 L (31.0-37.0) g/dL Plt Count 497 H (150-450) k/uL Lymphocytes # 0.6 L (1.0-4.8) k/uL Chloride 111 H (98-107) mmol/L Carbon Dioxide 20 L (22-30) mmol/L BUN 39 H (7-17) mg/dL Glucose 171 H (74-99) mg/dL Total Creatine Kinase <20 L (30-135) U/L Troponin I (0.000-0.034) ng/mL Total Protein 5.3 L (6.3-8.2) g/dL Albumin 2.7 L (3.5-5.0) g/dL 08/19/16 Range/Units 14:21 RBC (3.80-5.40) m/uL Hgb (11.4-16.0) gm/dL Hct (34.0-46.0) % MCHC (31.0-37.0) g/dL Plt Count (150-450) k/uL Lymphocytes # (1.0-4.8) k/uL Chloride (98-107) mmol/L Carbon Dioxide (22-30) mmol/L BUN (7-17) mg/dL Glucose (74-99) mg/dL Total Creatine Kinase (30-135) U/L Troponin I 0.318 H* (0.000-0.034) ng/mL Total Protein (6.3-8.2) g/dL Albumin (3.5-5.0) g/dL Microbiology - Last 24 Hours (Table) 08/18/16 14:40 Gram Stain - Preliminary Aspirate Body Fluid Culture - Preliminary 08/16/16 04:29 Blood Culture - Preliminary Blood No Growth after 72 hours 08/18/16 14:40 Anaerobic Culture - Preliminary Aspirate Assessment and Plan Plan: #1 Non-ST segment elevation myocardial infarction. Evaluated by cardiology during this admission #2 Anemia, suspect possible GI bleed in a patient with recent EGD in May 2016, and last colonoscopy 2010. Gastroenterology following, will proceed with colonoscopy when general medical condition improves. #3 Sepsis, blood culture positive for Staphylococcus aureus. Currently maintained on IV vancomycin #4 Febrile illness secondary to above and suspected urinary tract infection as well. #5 Acute exacerbation of diastolic congestive heart failure. #6 Hyperlipidemia. #7 Diabetes mellitus. #8 Hypertension. #9 History of coronary artery disease with previous coronary artery bypass grafting. #10 Left upper extremity pain secondary to recent left humeral fracture. #11 Valvular heart disease with severe aortic stenosis, moderate to severe mitral regurgitation, moderate to severe pulmonary hypertension. #12 Acute kidney injury secondary to hypotension and hypoprofusion improved creatinine down to 1.5 yesterday, will recheck labs
[2016-08-19 19:27] LABS: Basophils % (A) 0 %; CH 26.2; CHCM 28.5; Eosinophils % (A) 0 %; HCT 25.3 % (34.0-46.0); HDW 2.95; HGB 7.5 gm/dL (11.4-16.0); Hypochromasia Marked; Luc # (Auto) 0.14; Luc % (Auto) 1; Lymphocytes # (A) 0.6 k/uL (1.0-4.8); Lymphocytes % (A) 6 %; MCH 27.4 pg (25.0-35.0); MCHC 29.7 g/dL (31.0-37.0); MCV 92.4 fL (80.0-100.0); Mean Platelet Volume 6.8; Monocytes # (A) 0.8 k/uL (0-1.0); Monocytes % (A) 8 %; Neutrophils % (A) 85 %; RBC 2.73 m/uL (3.80-5.40); RDW 15.3 % (11.5-15.5); WBC 10.6 k/uL (3.8-10.6)
[2016-08-19 19:28] LABS: INR 2.2 (<1.1); Partial Thromboplastin Time 25.7 sec (22.0-30.0); Prothrombin Time 20.8 sec (9.0-12.0)
[2016-08-19 20:05] LABS: INR 2.2 (<1.1); Partial Thromboplastin Time 25.9 sec (22.0-30.0); Prothrombin Time 20.7 sec (9.0-12.0)
[2016-08-19 20:37] LABS: Glucose,Whole Blood 238 mg/dL (75-99)
[2016-08-19] MEDS: DONEPEZIL 10 MG TAB PO SCH (21:40)
[2016-08-19] MEDS: CHOLECALCIFEROL 1,000 UNIT TAB PO SCH (21:40)
[2016-08-19] MEDS: FENOFIBRATE 160 MG TAB PO SCH (21:40)
[2016-08-19] MEDS: SERTRALINE 100 MG TAB PO SCH (21:41)
[2016-08-19] MEDS: MULTIVITAMINS, THERA 1 EACH TAB PO SCH (21:41)
[2016-08-20] MEDS: ceFAZolin 2 GM in SODIUM CHLORIDE 0.9% 100 ML IVPB SCH ×4 (00:45→23:55)
[2016-08-20] MEDS: HYDROmorphone 1 MG/ML 1 ML SYRINGE IVP PRN ×3 (02:27→20:39)
[2016-08-20 06:15] LABS: Glucose,Whole Blood 235 mg/dL (75-99)
[2016-08-20 06:34] LABS: Anion Gap 11 mmol/L; Blood Urea Nitrogen 42 mg/dL (7-17); Calcium 9.5 mg/dL (8.4-10.2); Carbon Dioxide 21 mmol/L (22-30); Chloride 114 mmol/L (98-107); Glucose 218 mg/dL (74-99); Non-African American GFR(MDRD) >60 (>60 ml/min/1.73 sqM); Potassium 5.1 mmol/L (3.5-5.1); Sodium 146 mmol/L (137-145)
[2016-08-20] MEDS: SODIUM BICARBONATE TAB 650 MG TAB PO SCH ×4 (09:01→23:40)
[2016-08-20] MEDS: DOCUSATE 100 MG CAP PO SCH (09:01)
[2016-08-20] MEDS: PANTOPRAZOLE 40 MG/10 ML VIAL IVP SCH (09:01)
[2016-08-20] MEDS: POLYETHYLENE GLYCOL 3350 17 GM POWD.PACK PO SCH (09:01)
[2016-08-20] MEDS: EZETIMIBE 10 MG TAB PO SCH (09:02)
--- NOTE | 2016-08-20 09:36 | P.PN ---
Subjective Patient is seen in follow-up for acute kidney injury. Her baseline creatinine is 1 and peaked at 2.29 this admission. It was down to 0.8 today. Patient's currently being treated for staph aureus bacteremia. There was concern for endocarditis and she underwent a CLARIBEL which revealed no vegetations however she does have severe aortic stenosis, moderate to severe mitral regurgitation and pulmonary hypertension. Patient is not a very reliable historian. She is nonoliguric. She does admit to some dyspnea. She is also nauseous. She has also undergone a CT-guided aspiration at the site of the humerus fracture. Vital signs are stable. General: The patient appeared well nourished and normally developed. HEENT: Head exam is unremarkable. Neck is without jugular venous distension. LUNGS: Lungs are clear to auscultation and percussion. Breath sounds decreased. HEART: Rate and Rhythm are regular. First and second heart sounds normal. No murmurs, rubs or gallops. ABDOMEN: Abdominal exam reveals normal bowel sounds. Non-tender and non- distended. No evidence of peritonitis. EXTREMITITES: No clubbing, cyanosis, or edema. Objective - Vital Signs Vital signs: Vital Signs Temp 98.3 F 08/19/16 15:00 Pulse 110 H 08/20/16 08:00 Resp 21 08/20/16 04:00 BP 193/97 08/20/16 08:00 Pulse Ox 97 08/20/16 08:00 Intake & Output 08/19/16 08/20/16 08/20/16 18:59 06:59 18:59 Intake Total 250 48 Output Total 800 Balance 250 -800 48 Weight 79 kg Intake: Oral 250 48 Output: Urine 800 Other: Voiding Method Indwelling Catheter Indwelling Catheter - Labs CBC & Chem 7: 08/19/16 18:24 08/20/16 06:07 Labs: Abnormal Lab Results - Last 24 Hours (Table) 08/19/16 08/19/16 08/19/16 Range/Units 09:02 09:02 14:21 RBC 2.75 L (3.80-5.40) m/uL Hgb 7.4 L (11.4-16.0) gm/dL Hct 25.9 L (34.0-46.0) % MCHC 28.7 L (31.0-37.0) g/dL Plt Count 497 H (150-450) k/uL Neutrophils # (1.3-7.7) k/uL Lymphocytes # 0.6 L (1.0-4.8) k/uL PT (9.0-12.0) sec Sodium (137-145) mmol/L Chloride 111 H (98-107) mmol/L Carbon Dioxide 20 L (22-30) mmol/L BUN 39 H (7-17) mg/dL Glucose 171 H (74-99) mg/dL POC Glucose (mg/dL) (75-99) mg/dL Total Creatine Kinase <20 L (30-135) U/L Troponin I (0.000-0.034) ng/mL Total Protein 5.3 L (6.3-8.2) g/dL Albumin 2.7 L (3.5-5.0) g/dL 08/19/16 08/19/16 08/19/16 Range/Units 14:21 18:24 18:24 RBC 2.73 L (3.80-5.40) m/uL Hgb 7.5 L (11.4-16.0) gm/dL Hct 25.3 L (34.0-46.0) % MCHC 29.7 L (31.0-37.0) g/dL Plt Count 551 H (150-450) k/uL Neutrophils # 9.0 H (1.3-7.7) k/uL Lymphocytes # 0.6 L (1.0-4.8) k/uL PT 20.8 H (9.0-12.0) sec Sodium (137-145) mmol/L Chloride (98-107) mmol/L Carbon Dioxide (22-30) mmol/L BUN (7-17) mg/dL Glucose (74-99) mg/dL POC Glucose (mg/dL) (75-99) mg/dL Total Creatine Kinase (30-135) U/L Troponin I 0.318 H* (0.000-0.034) ng/mL Total Protein (6.3-8.2) g/dL Albumin (3.5-5.0) g/dL 08/19/16 08/19/16 08/20/16 Range/Units 19:42 20:35 06:07 RBC (3.80-5.40) m/uL Hgb (11.4-16.0) gm/dL Hct (34.0-46.0) % MCHC (31.0-37.0) g/dL Plt Count (150-450) k/uL Neutrophils # (1.3-7.7) k/uL Lymphocytes # (1.0-4.8) k/uL PT 20.7 H (9.0-12.0) sec Sodium 146 H (137-145) mmol/L Chloride 114 H (98-107) mmol/L Carbon Dioxide 21 L (22-30) mmol/L BUN 42 H (7-17) mg/dL Glucose 218 H (74-99) mg/dL POC Glucose (mg/dL) 238 H (75-99) mg/dL Total Creatine Kinase (30-135) U/L Troponin I (0.000-0.034) ng/mL Total Protein (6.3-8.2) g/dL Albumin (3.5-5.0) g/dL 08/20/16 Range/Units 06:13 RBC (3.80-5.40) m/uL Hgb (11.4-16.0) gm/dL Hct (34.0-46.0) % MCHC (31.0-37.0) g/dL Plt Count (150-450) k/uL Neutrophils # (1.3-7.7) k/uL Lymphocytes # (1.0-4.8) k/uL PT (9.0-12.0) sec Sodium (137-145) mmol/L Chloride (98-107) mmol/L Carbon Dioxide (22-30) mmol/L BUN (7-17) mg/dL Glucose (74-99) mg/dL POC Glucose (mg/dL) 235 H (75-99) mg/dL Total Creatine Kinase (30-135) U/L Troponin I (0.000-0.034) ng/mL Total Protein (6.3-8.2) g/dL Albumin (3.5-5.0) g/dL Microbiology - Last 24 Hours (Table) 08/16/16 04:29 Blood Culture - Preliminary Blood No Growth after 96 hours 08/18/16 14:40 Gram Stain - Preliminary Aspirate Body Fluid Culture - Preliminary Assessment and Plan Plan: Assessment: #1. Nonoliguric acute kidney injury secondary to ischemic ATN secondary to severe sepsis. Improving. Creatinine down to 0.8 today. #2. Volume overload as evidenced by vascular congestion on chest x-ray. #3. Severe aortic stenosis and moderate to severe mitral regurgitation. #4. Moderate to severe pulmonary hypertension. #5. Staph aureus bacteremia. #6. Anemia due to questionable GI bleed. Apparently she's been refusing colonoscopy. #7. Mild hypernatremia secondary to lack of oral water intake. Plan: Lasix 20 mg IV once today. Encourage oral intake. Avoid nephrotoxic agents and hypotensive episodes. Repeat electrolytes in the morning. Antibiotics per infectious disease recommendations.
--- NOTE | 2016-08-20 09:39 | P.PN ---
Subjective Principal diagnosis: Pathologic fracture left proximal humerus This is an 80-year-old female who we're following regarding her pathologic fracture to her left proximal humerus. A CT-guided biopsy was performed on . Biopsy results are still pending. Patient has been transferred out of the ICU to the select care unit. Objective - Vital Signs Vital signs: Vital Signs Temp 98.3 F 08/19/16 15:00 Pulse 110 H 08/20/16 08:00 Resp 21 08/20/16 04:00 BP 193/97 08/20/16 08:00 Pulse Ox 97 08/20/16 08:00 Intake & Output 08/19/16 08/20/16 08/20/16 18:59 06:59 18:59 Intake Total 250 48 Output Total 800 Balance 250 -800 48 Weight 79 kg Intake: Oral 250 48 Output: Urine 800 Other: Voiding Method Indwelling Catheter Indwelling Catheter - Exam This is an 80-year-old female in mild distress secondary to pain and shortness of breath. Nursing is present at bedside. Exam of left shoulder reveals that her sling is in place. She has full finger motion and wrist motion without difficulty. Radial pulse +2/4. Neurovascular status the upper extremity is intact. - Labs CBC & Chem 7: 08/19/16 18:24 08/20/16 06:07 Labs: Abnormal Lab Results - Last 24 Hours (Table) 08/19/16 08/19/16 08/19/16 Range/Units 09:02 09:02 14:21 RBC 2.75 L (3.80-5.40) m/uL Hgb 7.4 L (11.4-16.0) gm/dL Hct 25.9 L (34.0-46.0) % MCHC 28.7 L (31.0-37.0) g/dL Plt Count 497 H (150-450) k/uL Neutrophils # (1.3-7.7) k/uL Lymphocytes # 0.6 L (1.0-4.8) k/uL PT (9.0-12.0) sec Sodium (137-145) mmol/L Chloride 111 H (98-107) mmol/L Carbon Dioxide 20 L (22-30) mmol/L BUN 39 H (7-17) mg/dL Glucose 171 H (74-99) mg/dL POC Glucose (mg/dL) (75-99) mg/dL Total Creatine Kinase <20 L (30-135) U/L Troponin I (0.000-0.034) ng/mL Total Protein 5.3 L (6.3-8.2) g/dL Albumin 2.7 L (3.5-5.0) g/dL 08/19/16 08/19/16 08/19/16 Range/Units 14:21 18:24 18:24 RBC 2.73 L (3.80-5.40) m/uL Hgb 7.5 L (11.4-16.0) gm/dL Hct 25.3 L (34.0-46.0) % MCHC 29.7 L (31.0-37.0) g/dL Plt Count 551 H (150-450) k/uL Neutrophils # 9.0 H (1.3-7.7) k/uL Lymphocytes # 0.6 L (1.0-4.8) k/uL PT 20.8 H (9.0-12.0) sec Sodium (137-145) mmol/L Chloride (98-107) mmol/L Carbon Dioxide (22-30) mmol/L BUN (7-17) mg/dL Glucose (74-99) mg/dL POC Glucose (mg/dL) (75-99) mg/dL Total Creatine Kinase (30-135) U/L Troponin I 0.318 H* (0.000-0.034) ng/mL Total Protein (6.3-8.2) g/dL Albumin (3.5-5.0) g/dL 08/19/16 08/19/16 08/20/16 Range/Units 19:42 20:35 06:07 RBC (3.80-5.40) m/uL Hgb (11.4-16.0) gm/dL Hct (34.0-46.0) % MCHC (31.0-37.0) g/dL Plt Count (150-450) k/uL Neutrophils # (1.3-7.7) k/uL Lymphocytes # (1.0-4.8) k/uL PT 20.7 H (9.0-12.0) sec Sodium 146 H (137-145) mmol/L Chloride 114 H (98-107) mmol/L Carbon Dioxide 21 L (22-30) mmol/L BUN 42 H (7-17) mg/dL Glucose 218 H (74-99) mg/dL POC Glucose (mg/dL) 238 H (75-99) mg/dL Total Creatine Kinase (30-135) U/L Troponin I (0.000-0.034) ng/mL Total Protein (6.3-8.2) g/dL Albumin (3.5-5.0) g/dL 08/20/16 Range/Units 06:13 RBC (3.80-5.40) m/uL Hgb (11.4-16.0) gm/dL Hct (34.0-46.0) % MCHC (31.0-37.0) g/dL Plt Count (150-450) k/uL Neutrophils # (1.3-7.7) k/uL Lymphocytes # (1.0-4.8) k/uL PT (9.0-12.0) sec Sodium (137-145) mmol/L Chloride (98-107) mmol/L Carbon Dioxide (22-30) mmol/L BUN (7-17) mg/dL Glucose (74-99) mg/dL POC Glucose (mg/dL) 235 H (75-99) mg/dL Total Creatine Kinase (30-135) U/L Troponin I (0.000-0.034) ng/mL Total Protein (6.3-8.2) g/dL Albumin (3.5-5.0) g/dL Microbiology - Last 24 Hours (Table) 08/16/16 04:29 Blood Culture - Preliminary Blood No Growth after 96 hours 08/18/16 14:40 Gram Stain - Preliminary Aspirate Body Fluid Culture - Preliminary Assessment and Plan (1) Humerus lesion, left Status: Acute (2) Acute blood loss anemia Status: Acute Plan: The clinical and radiographic findings are discussed with the patient and her nurse. The patient is a poor candidate for any surgical intervention. We discussed possibility of plating the fracture with bone graft versus intramedullary rodding which are both extensive surgeries which she most likely would not tolerate. We will continue sling for immobilization. We will follow peripherally.
[2016-08-20] MEDS ORDERED: FUROSEMIDE 10 MG/ML 2 ML VIAL IV ONE (10:00)
[2016-08-20 11:43] LABS: Glucose,Whole Blood 284 mg/dL (75-99)
--- NOTE | 2016-08-20 12:19 | P.PN ---
Subjective This is a 80-year-old female, patient of [facility]. She has a known past medical history of myocardial infarction and three-vessel coronary artery bypass graft, coronary artery disease, hyperlipidemia, hypertension, diabetes, chronic kidney disease and dementia. Also history of anemia with recent EGD and May 2016 revealing gastritis colonoscopy was several years ago. She presents to the hospital with complaints of chest pain, abdominal pain , black stools with episodes of diarrhea. She's found have evidence of a non- ST elevated NM. Not able to be on aspirin or IV heparin at this time due to her significant anemia. Patient is found to have a UTI as well as positive blood cultures growing presumptive staph aureus. She currently on vancomycin and Rocephin. She still complaining of some abdominal pain. Also having some shortness of breath. Hemoglobin is 7.1 today she'll get receive 1 unit of blood. Creatinine has jumped up to 2.24. Nephrology will be consulted Lasix and lisinopril are on hold. 08/17/2016 patient currently in the ICU. She had a reaction to blood transfusion on Wednesday. Hemoglobin is 7.2. She is having stools. Loose but not dark and no blood present. She is still complaining of some belly pain. Left arm is in sling. She has been off of the dopamine since yesterday. She is followed by multiple consulting physicians. Continue to monitor closely. The planning on transferring her to the sixth floor this afternoon. 08/20/2016 patient still complaining of some chest pain and abdominal pain. Yesterday she was sent to the telemetry floor due to chest pain. Troponin slightly elevated 0.318 but improved since admission. Cardiology has been reconsulted. Patient reports having bowel movements, denies any nausea vomiting. Denies any difficulty with urinating. Objective - Vital Signs Vital signs: Vital Signs Temp 98.3 F 08/19/16 15:00 Pulse 110 H 08/20/16 08:00 Resp 21 08/20/16 04:00 BP 193/97 08/20/16 08:00 Pulse Ox 97 08/20/16 08:00 Intake & Output 08/19/16 08/20/16 08/20/16 18:59 06:59 18:59 Intake Total 250 48 Output Total 800 Balance 250 -800 48 Weight 79 kg Intake: Oral 250 48 Output: Urine 800 Other: Voiding Method Indwelling Catheter Indwelling Catheter Indwelling Catheter - Exam Head normocephalic Neck supple Lungs diminished bilaterally Heart regular rate and rhythm S1-S2, no rub or gallop positive murmur. Tenderness with palpation of chest wall Abdomen is soft nondistended positive bowel sounds diffuse abdominal tenderness Extremities no edema Neuro awake and alert eating breakfast - Labs CBC & Chem 7: 08/19/16 18:24 08/20/16 06:07 Labs: Abnormal Lab Results - Last 24 Hours (Table) 08/19/16 08/19/16 08/19/16 Range/Units 14:21 14:21 18:24 RBC 2.73 L (3.80-5.40) m/uL Hgb 7.5 L (11.4-16.0) gm/dL Hct 25.3 L (34.0-46.0) % MCHC 29.7 L (31.0-37.0) g/dL Plt Count 551 H (150-450) k/uL Neutrophils # 9.0 H (1.3-7.7) k/uL Lymphocytes # 0.6 L (1.0-4.8) k/uL PT (9.0-12.0) sec Sodium (137-145) mmol/L Chloride (98-107) mmol/L Carbon Dioxide (22-30) mmol/L BUN (7-17) mg/dL Glucose (74-99) mg/dL POC Glucose (mg/dL) (75-99) mg/dL Total Creatine Kinase <20 L (30-135) U/L Troponin I 0.318 H* (0.000-0.034) ng/mL 08/19/16 08/19/16 08/19/16 Range/Units 18:24 19:42 20:35 RBC (3.80-5.40) m/uL Hgb (11.4-16.0) gm/dL Hct (34.0-46.0) % MCHC (31.0-37.0) g/dL Plt Count (150-450) k/uL Neutrophils # (1.3-7.7) k/uL Lymphocytes # (1.0-4.8) k/uL PT 20.8 H 20.7 H (9.0-12.0) sec Sodium (137-145) mmol/L Chloride (98-107) mmol/L Carbon Dioxide (22-30) mmol/L BUN (7-17) mg/dL Glucose (74-99) mg/dL POC Glucose (mg/dL) 238 H (75-99) mg/dL Total Creatine Kinase (30-135) U/L Troponin I (0.000-0.034) ng/mL 08/20/16 08/20/16 08/20/16 Range/Units 06:07 06:13 11:30 RBC (3.80-5.40) m/uL Hgb (11.4-16.0) gm/dL Hct (34.0-46.0) % MCHC (31.0-37.0) g/dL Plt Count (150-450) k/uL Neutrophils # (1.3-7.7) k/uL Lymphocytes # (1.0-4.8) k/uL PT (9.0-12.0) sec Sodium 146 H (137-145) mmol/L Chloride 114 H (98-107) mmol/L Carbon Dioxide 21 L (22-30) mmol/L BUN 42 H (7-17) mg/dL Glucose 218 H (74-99) mg/dL POC Glucose (mg/dL) 235 H 284 H (75-99) mg/dL Total Creatine Kinase (30-135) U/L Troponin I (0.000-0.034) ng/mL Microbiology - Last 24 Hours (Table) 08/16/16 04:29 Blood Culture - Preliminary Blood No Growth after 96 hours 08/18/16 14:40 Gram Stain - Preliminary Aspirate Body Fluid Culture - Preliminary Assessment and Plan Plan: 1. Acute non-ST elevated NM with Chest pain with elevated troponins : No IV heparin or aspirin started due to suspected GI bleeding and anemia. Patient is followed by cardiology. Recurrent chest pain. Cardiology has been really consulted. Troponin 0.318 2. abdominal pain with diarrhea: Computed tomography scan of the abdomen showed no significant acute abnormalities. Followed by surgery. 3. Anemia with possible GI bleed and acute blood loss anemia with evidence of iron deficiency. Patient reports having black stools. Hemoglobin 8.6 on admission. EGD in May 2016 revealing gastritis no active bleeding. Last colonoscopy several years ago. Evaluated by GI service. At this time patient would likely not tolerate prep. However, GI will reevaluate her tomorrow. 4. Hypotension most likely secondary to Staphylococcus septicemia: Monitor closely. Currently off pressors. 5. History of myocardial infarction with previous three-vessel coronary bypass graft 6. dementia continue Aricept 7. Essential hypertension continue metoprolol 8. Hyperlipidemia home medications 9. Left humeral neck fracture: Suspected comminuted fracture of the left humeral neck likely pathologic with suspected intraosseous bone lesion noted on CAT scan. Patient evaluated by orthopedics. At this time the recommending sling. Likely patient wouldn't tolerate any procedure to this area 10. Acute on chronic kidney disease stage III: Acute kidney injury secondary to hypotension and hypoperfusion. Creatinine showing improvement. Nephrology is following. Avoid nephrotoxic meds. 11. Bacteremia: Cultures are growing MSSA. Followed by infectious disease. Patient underwent CLARIBEL which was negative. She underwent biopsy of left arm bone lesion yesterday. Awaiting pathology results. 13. Moderate aortic stenosis noted on echo GI prophylaxis IV Protonix I performed an examination of the patient and discussed their management with the physician Cellophaner. I have reviewed the Physician Cellophaner's notes and agree with the documented findings and plan of care
[2016-08-20 12:41] LABS: Basophils # (A) 0.1 k/uL (0-0.2); Basophils % (A) 1 %; CH 25.8; CHCM 27.2; Eosinophils # (A) 0.1 k/uL (0-0.7); Eosinophils % (A) 1 %; HCT 26.5 % (34.0-46.0); HDW 2.82; HGB 7.7 gm/dL (11.4-16.0); Hypochromasia Marked; Luc # (Auto) 0.23; Luc % (Auto) 2; Lymphocytes % (A) 9 %; MCH 27.6 pg (25.0-35.0); MCHC 29.1 g/dL (31.0-37.0); Mean Platelet Volume 7.5; Monocytes % (A) 9 %; Neutrophils # (A) 9.3 k/uL (1.3-7.7); Neutrophils % (A) 80 %; RBC 2.79 m/uL (3.80-5.40); RDW 15.2 % (11.5-15.5); WBC 11.7 k/uL (3.8-10.6); WBC (Perox) 12.18
[2016-08-20 14:02] VITALS: BMI 32.9
--- NOTE | 2016-08-20 14:52 | P.PN ---
Subjective Principal diagnosis: Chest pain This is an 80-year-old female who presented to the hospital mainly with symptoms of worsening shortness of breath. She did rule in for non-Q-wave myocardial infarction. Patient has known history of hypertension diabetes hyperlipidemia and congestive cardiac failure. Patient was also found here to be febrile and has positive blood cultures. She underwent a transesophageal echocardiographic study for this admission did not reveal any evidence of vegetation on the valves. We were reconsulted to see the patient because of some chest pain earlier on today. Patient is not a candidate to undergo any invasive procedures at this time especially in the setting of acute sepsis. We will maximize her medications. Because of the low hemoglobin, patient is not currently on a baby aspirin. We will add a beta rosalba and MANSOOR inhibitor to her medication regime, along with a statin and nitrates. Objective - Vital Signs Vital signs: Vital Signs Temp 98.3 F 08/19/16 15:00 Pulse 110 H 08/20/16 08:00 Resp 21 08/20/16 04:00 BP 193/97 08/20/16 08:00 Pulse Ox 97 08/20/16 08:00 Intake & Output 08/19/16 08/20/16 08/20/16 18:59 06:59 18:59 Intake Total 250 48 Output Total 800 Balance 250 -800 48 Weight 79 kg 79 kg Intake: Oral 250 48 Output: Urine 800 Other: Voiding Method Indwelling Catheter Indwelling Catheter Indwelling Catheter - Exam GENERAL EXAM: Weak, pale. EYES: Normal reaction of pupils, equal size. NOSE: Clear with pink turbinates. THROAT: No erythema or exudates. NECK: No masses, no JVD. CHEST: No chest wall deformity. LUNGS: Equal air entry with crackles in the posterior bases more so on the left. CVS: S1 and S2 normal with an audible murmur, regular rhythm. ABDOMEN: No hepatosplenomegaly, normal bowel sounds, no guarding or rigidity. Extremities: There is 1+ peripheral edema. No clubbing, no cyanosis. Peripheral pulses are intact. - La - Labs CBC & Chem 7: 08/20/16 06:07 08/20/16 06:07 Labs: Abnormal Lab Results - Last 24 Hours (Table) 08/19/16 08/19/16 08/19/16 Range/Units 14:21 14:21 18:24 WBC (3.8-10.6) k/uL RBC 2.73 L (3.80-5.40) m/uL Hgb 7.5 L (11.4-16.0) gm/dL Hct 25.3 L (34.0-46.0) % MCHC 29.7 L (31.0-37.0) g/dL Plt Count 551 H (150-450) k/uL Neutrophils # 9.0 H (1.3-7.7) k/uL Lymphocytes # 0.6 L (1.0-4.8) k/uL PT (9.0-12.0) sec Sodium (137-145) mmol/L Chloride (98-107) mmol/L Carbon Dioxide (22-30) mmol/L BUN (7-17) mg/dL Glucose (74-99) mg/dL POC Glucose (mg/dL) (75-99) mg/dL Total Creatine Kinase <20 L (30-135) U/L Troponin I 0.318 H* (0.000-0.034) ng/mL 08/19/16 08/19/16 08/19/16 Range/Units 18:24 19:42 20:35 WBC (3.8-10.6) k/uL RBC (3.80-5.40) m/uL Hgb (11.4-16.0) gm/dL Hct (34.0-46.0) % MCHC (31.0-37.0) g/dL Plt Count (150-450) k/uL Neutrophils # (1.3-7.7) k/uL Lymphocytes # (1.0-4.8) k/uL PT 20.8 H 20.7 H (9.0-12.0) sec Sodium (137-145) mmol/L Chloride (98-107) mmol/L Carbon Dioxide (22-30) mmol/L BUN (7-17) mg/dL Glucose (74-99) mg/dL POC Glucose (mg/dL) 238 H (75-99) mg/dL Total Creatine Kinase (30-135) U/L Troponin I (0.000-0.034) ng/mL 08/20/16 08/20/16 08/20/16 Range/Units 06:07 06:07 06:13 WBC 11.7 H (3.8-10.6) k/uL RBC 2.79 L (3.80-5.40) m/uL Hgb 7.7 L (11.4-16.0) gm/dL Hct 26.5 L (34.0-46.0) % MCHC 29.1 L (31.0-37.0) g/dL Plt Count 631 H (150-450) k/uL Neutrophils # 9.3 H (1.3-7.7) k/uL Lymphocytes # (1.0-4.8) k/uL PT (9.0-12.0) sec Sodium 146 H (137-145) mmol/L Chloride 114 H (98-107) mmol/L Carbon Dioxide 21 L (22-30) mmol/L BUN 42 H (7-17) mg/dL Glucose 218 H (74-99) mg/dL POC Glucose (mg/dL) 235 H (75-99) mg/dL Total Creatine Kinase (30-135) U/L Troponin I (0.000-0.034) ng/mL 08/20/16 Range/Units 11:30 WBC (3.8-10.6) k/uL RBC (3.80-5.40) m/uL Hgb (11.4-16.0) gm/dL Hct (34.0-46.0) % MCHC (31.0-37.0) g/dL Plt Count (150-450) k/uL Neutrophils # (1.3-7.7) k/uL Lymphocytes # (1.0-4.8) k/uL PT (9.0-12.0) sec Sodium (137-145) mmol/L Chloride (98-107) mmol/L Carbon Dioxide (22-30) mmol/L BUN (7-17) mg/dL Glucose (74-99) mg/dL POC Glucose (mg/dL) 284 H (75-99) mg/dL Total Creatine Kinase (30-135) U/L Troponin I (0.000-0.034) ng/mL Microbiology - Last 24 Hours (Table) 08/16/16 04:29 Blood Culture - Preliminary Blood No Growth after 96 hours 08/18/16 14:40 Gram Stain - Preliminary Aspirate Body Fluid Culture - Preliminary Assessment and Plan Plan: Assessment and plan #1 non-ST elevation myocardial infarction, patient currently not on aspirin because of low hemoglobin and possible GI bleed. #2 abdominal pain with diarrhea and black stools. #3 urinary tract infection with evidence of fever , blood culture positive for staph aureus #4 history of prior myocardial infarction with previous bypass surgery #5 anemia with possible GI bleed #6 hypertension, patient is currently quite hypotensive #7 hyperlipidemia #8 possible lytic lesion on the left humerus with evidence of left humerus fracture #9 congestive heart failure, unknown LV function at this time. #10 acute on chronic renal failure, Lasix and lisinopril have been placed on hold. #11 sepsis secondary to presumptive Staphylococcus aureus Plan We'll optimize the patient's medical therapy, add beta orsalba, statin, nitrates , and MANSOOR inhibitor to the medication regime. DNP note has been reviewed, I agree with a documented findings and plan of care. Patient was seen and examined.
[2016-08-20 16:40] LABS: Glucose,Whole Blood 308 mg/dL (75-99)
[2016-08-20] MEDS: ISOSORBIDE MONONITRATE ER 30 MG TAB.ER.24H PO SCH (17:54)
[2016-08-20] MEDS: LISINOPRIL 5 MG TAB PO SCH (17:54)
[2016-08-20] MEDS: INSULIN LISPRO (humaLOG) 300 UNIT/3 ML VIAL SQ SCH ×2 (18:47→21:55)
[2016-08-20 21:26] LABS: Glucose,Whole Blood 273 mg/dL (75-99)
[2016-08-20 21:32] LABS: Basophils # (A) 0.1 k/uL (0-0.2); Basophils % (A) 0 %; CH 26.2; CHCM 28.7; Eosinophils # (A) 0.1 k/uL (0-0.7); Eosinophils % (A) 1 %; HCT 23.3 % (34.0-46.0); HDW 3.01; Hypochromasia Marked; Immature Gran Flag Slight; Luc # (Auto) 0.27; Luc % (Auto) 2; Lymphocytes # (A) 1.2 k/uL (1.0-4.8); Lymphocytes % (A) 10 %; MCH 26.8 pg (25.0-35.0); MCHC 29.3 g/dL (31.0-37.0); MCV 91.3 fL (80.0-100.0); Mean Platelet Volume 7.1; Monocytes # (A) 1.2 k/uL (0-1.0); Monocytes % (A) 10 %; Neutrophils # (A) 9.6 k/uL (1.3-7.7); Neutrophils % (A) 77 %; RBC 2.55 m/uL (3.80-5.40); RDW 15.5 % (11.5-15.5); WBC 12.5 k/uL (3.8-10.6); WBC (Perox) 12.49
[2016-08-20 21:34] LABS: HGB 6.8 gm/dL (11.4-16.0)
--- NOTE | 2016-08-20 22:09 | PN ---
DATE OF SERVICE: 08/20/2016 REASON FOR FOLLOWUP: MSSA bacteremia. INTERVAL HISTORY: The patient is afebrile. She has been transferred to [facility] (Formerly [facility]) because of tachycardia. Patient remains hemodynamically stable. The patient denies significant chest pain. No cough, no abdominal pain, nausea, vomiting or any diarrhea. On examination, blood pressure is 159/97 with a pulse of 111, temperature 98. She is 98% on 2 L nasal cannula. General description is an elderly female lying in bed in no distress. RESPIRATORY SYSTEM: Unlabored breathing. Clear to auscultation anteriorly. HEART: S1, S2. Regular rate and rhythm. ABDOMEN: Soft. No tenderness. LABS: Hemoglobin 7.7, white count 11.7 with a BUN of 42, creatinine 0.81. DIAGNOSTIC IMPRESSION AND PLAN: Patient with methicillin-susceptible Staphylococcus aureus bacteremia with concern for possible deep source and a question of left humerus osteomyelitis ( ) the clinical focus of infection. Her CLARIBEL was negative. Patient will likely need a PICC line and outpatient IV antibiotic therapy for at least 6 weeks, for which we will go ahead and place a PICC line. Continue the patient on cefazolin. Continue supportive care.
[2016-08-20] MEDS: METOPROLOL TARTRATE 25 MG TAB PO SCH (23:40)
[2016-08-20] MEDS: ATORVASTATIN 40 MG TAB PO SCH (23:40)
[2016-08-20] MEDS: SERTRALINE 100 MG TAB PO SCH (23:40)
[2016-08-20] MEDS: MULTIVITAMINS, THERA 1 EACH TAB PO SCH (23:40)
[2016-08-20] MEDS: FENOFIBRATE 160 MG TAB PO SCH (23:41)
[2016-08-20] MEDS: DONEPEZIL 10 MG TAB PO SCH (23:41)
[2016-08-20] MEDS: CHOLECALCIFEROL 1,000 UNIT TAB PO SCH (23:41)
[2016-08-21] MEDS: HYDROmorphone 1 MG/ML 1 ML SYRINGE IVP PRN ×4 (00:05→22:35)
[2016-08-21] MEDS: ONDANSETRON 4 MG/2 ML VIAL IVP PRN ×3 (03:27→22:36)
[2016-08-21 06:50] LABS: Glucose,Whole Blood 242 mg/dL (75-99)
[2016-08-21] MEDS: INSULIN LISPRO (humaLOG) 300 UNIT/3 ML VIAL SQ SCH ×4 (07:05→21:28)
[2016-08-21 07:29] LABS: INR 4.4 (<1.1); Prothrombin Time 43.6 sec (9.0-12.0)
[2016-08-21 07:31] LABS: Anion Gap 9 mmol/L; Blood Urea Nitrogen 41 mg/dL (7-17); Calcium 9.3 mg/dL (8.4-10.2); Carbon Dioxide 26 mmol/L (22-30); Chloride 112 mmol/L (98-107); Glucose 225 mg/dL (74-99); Non-African American GFR(MDRD) 57 (>60 ml/min/1.73 sqM); Potassium 4.3 mmol/L (3.5-5.1); Sodium 147 mmol/L (137-145)
[2016-08-21 07:54] LABS: Basophils % (A) 0 %; CH 25.9; CHCM 27.9; Eosinophils # (A) 0.1 k/uL (0-0.7); Eosinophils % (A) 1 %; HCT 23.9 % (34.0-46.0); HDW 2.96; HGB 7.1 gm/dL (11.4-16.0); Hypochromasia Marked; Luc # (Auto) 0.22; Luc % (Auto) 2; Lymphocytes # (A) 1.4 k/uL (1.0-4.8); Lymphocytes % (A) 11 %; MCH 27.7 pg (25.0-35.0); MCHC 29.7 g/dL (31.0-37.0); MCV 93.3 fL (80.0-100.0); Mean Platelet Volume 6.8; Monocytes # (A) 1.1 k/uL (0-1.0); Monocytes % (A) 9 %; Neutrophils # (A) 9.6 k/uL (1.3-7.7); Neutrophils % (A) 78 %; RBC 2.56 m/uL (3.80-5.40); RDW 15.5 % (11.5-15.5); WBC 12.4 k/uL (3.8-10.6); WBC (Perox) 12.63
[2016-08-21] MEDS ORDERED: FUROSEMIDE 10 MG/ML 2 ML VIAL IV ONE (07:56)
--- NOTE | 2016-08-21 07:56 | P.PN ---
Subjective Patient is seen in follow-up for acute kidney injury. Her baseline creatinine is 1 and peaked at 2.29 this admission. It is 0.95 today. Patient's currently being treated for staph aureus bacteremia. There was concern for endocarditis and she underwent a CLARIBEL which revealed no vegetations however she does have severe aortic stenosis, moderate to severe mitral regurgitation and pulmonary hypertension. Patient is not a very reliable historian. She is nonoliguric. She does admit to some dyspnea. Oral intake is fair and needs to be fed as she won't eat on her own. She has also undergone a CT-guided aspiration at the site of the humerus fracture. Hemoglobin is down to 6.8 today. According to the nurse she did have black tarry stools overnight and was also passing blood clots. Vital signs are stable. General: The patient appeared well nourished and normally developed. HEENT: Head exam is unremarkable. Neck is without jugular venous distension. LUNGS: Lungs are clear to auscultation and percussion. Breath sounds decreased. HEART: Rate and Rhythm are regular. First and second heart sounds normal. No murmurs, rubs or gallops. ABDOMEN: Abdominal exam reveals normal bowel sounds. Non-tender and non- distended. No evidence of peritonitis. EXTREMITITES: No clubbing, cyanosis, or edema. Objective - Vital Signs Vital signs: Vital Signs Temp 97.2 F L 08/21/16 04:00 Pulse 71 08/21/16 04:00 Resp 22 08/21/16 04:00 BP 139/68 08/21/16 04:00 Pulse Ox 99 08/21/16 04:00 Intake & Output 08/20/16 08/21/16 08/21/16 18:59 06:59 18:59 Intake Total 688 670 Output Total 550 1500 Balance 138 -830 Weight 79 kg 79.7 kg Intake: IV 320 0.9 320 Intake, IV Titration 100 Amount ceFAZolin 2 gm In Sodium 100 Chloride 0.9% 100 ml @ 100 mls/hr IVPB Q8HR [facility] Rx#:[id number] Oral 588 350 Output: Urine 550 1200 Stool 300 Other: Voiding Method Indwelling Catheter Indwelling Catheter # Bowel Movements 1 - Labs CBC & Chem 7: 08/20/16 21:05 08/21/16 06:42 Labs: Abnormal Lab Results - Last 24 Hours (Table) 08/20/16 08/20/16 08/20/16 Range/Units 06:07 11:30 16:33 WBC 11.7 H (3.8-10.6) k/uL RBC 2.79 L (3.80-5.40) m/uL Hgb 7.7 L (11.4-16.0) gm/dL Hct 26.5 L (34.0-46.0) % MCHC 29.1 L (31.0-37.0) g/dL Plt Count 631 H (150-450) k/uL Neutrophils # 9.3 H (1.3-7.7) k/uL Monocytes # (0-1.0) k/uL PT (9.0-12.0) sec Sodium (137-145) mmol/L Chloride (98-107) mmol/L BUN (7-17) mg/dL Glucose (74-99) mg/dL POC Glucose (mg/dL) 284 H 308 H (75-99) mg/dL 08/20/16 08/20/16 08/21/16 Range/Units 20:58 21:05 06:29 WBC 12.5 H (3.8-10.6) k/uL RBC 2.55 L (3.80-5.40) m/uL Hgb 6.8 L* (11.4-16.0) gm/dL Hct 23.3 L (34.0-46.0) % MCHC 29.3 L (31.0-37.0) g/dL Plt Count 640 H (150-450) k/uL Neutrophils # 9.6 H (1.3-7.7) k/uL Monocytes # 1.2 H (0-1.0) k/uL PT (9.0-12.0) sec Sodium (137-145) mmol/L Chloride (98-107) mmol/L BUN (7-17) mg/dL Glucose (74-99) mg/dL POC Glucose (mg/dL) 273 H 242 H (75-99) mg/dL 08/21/16 08/21/16 Range/Units 06:42 06:42 WBC (3.8-10.6) k/uL RBC (3.80-5.40) m/uL Hgb (11.4-16.0) gm/dL Hct (34.0-46.0) % MCHC (31.0-37.0) g/dL Plt Count (150-450) k/uL Neutrophils # (1.3-7.7) k/uL Monocytes # (0-1.0) k/uL PT 43.6 H (9.0-12.0) sec Sodium 147 H (137-145) mmol/L Chloride 112 H (98-107) mmol/L BUN 41 H (7-17) mg/dL Glucose 225 H (74-99) mg/dL POC Glucose (mg/dL) (75-99) mg/dL Microbiology - Last 24 Hours (Table) 08/16/16 04:29 Blood Culture - Preliminary Blood No Growth after 120 hours 08/18/16 14:40 Gram Stain - Preliminary Aspirate Body Fluid Culture - Preliminary Assessment and Plan Plan: Assessment: #1. Nonoliguric acute kidney injury secondary to ischemic ATN secondary to severe sepsis. Improved. Creatinine 0.95 today. #2. Volume overload as evidenced by vascular congestion on previous chest x- ray. #3. Severe aortic stenosis and moderate to severe mitral regurgitation. #4. Moderate to severe pulmonary hypertension. #5. Staph aureus bacteremia. #6. Anemia due to underlying GI bleed. Apparently she's been refusing colonoscopy. #7. Mild hypernatremia secondary to lack of oral water intake. Plan: Patient to receive a unit of packed red blood cell transfusion today. Lasix 20 mg IV once after blood transfusion. I will give her D5W to be run at 50 mL an hour for 6 hours. Encourage oral intake. Avoid nephrotoxic agents and hypotensive episodes. Repeat electrolytes in the morning. Antibiotics per infectious disease recommendations.
[2016-08-21] MEDS ORDERED: DEXTROSE 5% IN WATER 1,000 ML IV ONE (07:57)
--- NOTE | 2016-08-21 08:48 | P.PN ---
Subjective Principal diagnosis: Pathologic fracture left proximal humerus This is an 80-year-old female who we're following regarding her pathologic fracture to her left proximal humerus. A CT-guided biopsy was performed on . Biopsy results are still pending. Patient has been transferred out of the ICU to the select care unit. Objective - Vital Signs Vital signs: Vital Signs Temp 97.2 F L 08/21/16 04:00 Pulse 71 08/21/16 04:00 Resp 22 08/21/16 04:00 BP 139/68 08/21/16 04:00 Pulse Ox 99 08/21/16 04:00 Intake & Output 08/20/16 08/21/16 08/21/16 18:59 06:59 18:59 Intake Total 688 670 Output Total 550 1500 Balance 138 -830 Weight 79 kg 79.7 kg Intake: IV 320 0.9 320 Intake, IV Titration 100 Amount ceFAZolin 2 gm In Sodium 100 Chloride 0.9% 100 ml @ 100 mls/hr IVPB Q8HR [facility] Rx#:[id number] Oral 588 350 Output: Urine 550 1200 Stool 300 Other: Voiding Method Indwelling Catheter Indwelling Catheter # Bowel Movements 1 - Exam This is an 80-year-old female in mild distress secondary to pain and shortness of breath. Exam of left shoulder reveals that her sling is in place. She has full finger motion and wrist motion without difficulty. Radial pulse +2/4. Neurovascular status the upper extremity is intact. - Labs CBC & Chem 7: 08/21/16 06:42 08/21/16 06:42 Labs: Abnormal Lab Results - Last 24 Hours (Table) 08/20/16 08/20/16 08/20/16 Range/Units 06:07 11:30 16:33 WBC 11.7 H (3.8-10.6) k/uL RBC 2.79 L (3.80-5.40) m/uL Hgb 7.7 L (11.4-16.0) gm/dL Hct 26.5 L (34.0-46.0) % MCHC 29.1 L (31.0-37.0) g/dL Plt Count 631 H (150-450) k/uL Neutrophils # 9.3 H (1.3-7.7) k/uL Monocytes # (0-1.0) k/uL PT (9.0-12.0) sec Sodium (137-145) mmol/L Chloride (98-107) mmol/L BUN (7-17) mg/dL Glucose (74-99) mg/dL POC Glucose (mg/dL) 284 H 308 H (75-99) mg/dL 08/20/16 08/20/16 08/21/16 Range/Units 20:58 21:05 06:29 WBC 12.5 H (3.8-10.6) k/uL RBC 2.55 L (3.80-5.40) m/uL Hgb 6.8 L* (11.4-16.0) gm/dL Hct 23.3 L (34.0-46.0) % MCHC 29.3 L (31.0-37.0) g/dL Plt Count 640 H (150-450) k/uL Neutrophils # 9.6 H (1.3-7.7) k/uL Monocytes # 1.2 H (0-1.0) k/uL PT (9.0-12.0) sec Sodium (137-145) mmol/L Chloride (98-107) mmol/L BUN (7-17) mg/dL Glucose (74-99) mg/dL POC Glucose (mg/dL) 273 H 242 H (75-99) mg/dL 08/21/16 08/21/16 08/21/16 Range/Units 06:42 06:42 06:42 WBC 12.4 H (3.8-10.6) k/uL RBC 2.56 L (3.80-5.40) m/uL Hgb 7.1 L (11.4-16.0) gm/dL Hct 23.9 L (34.0-46.0) % MCHC 29.7 L (31.0-37.0) g/dL Plt Count 679 H (150-450) k/uL Neutrophils # 9.6 H (1.3-7.7) k/uL Monocytes # 1.1 H (0-1.0) k/uL PT 43.6 H (9.0-12.0) sec Sodium 147 H (137-145) mmol/L Chloride 112 H (98-107) mmol/L BUN 41 H (7-17) mg/dL Glucose 225 H (74-99) mg/dL POC Glucose (mg/dL) (75-99) mg/dL Microbiology - Last 24 Hours (Table) 08/16/16 04:29 Blood Culture - Preliminary Blood No Growth after 120 hours 08/18/16 14:40 Gram Stain - Preliminary Aspirate Body Fluid Culture - Preliminary Assessment and Plan (1) Humerus lesion, left Status: Acute (2) Acute blood loss anemia Status: Acute Plan: The clinical and radiographic findings are discussed with the patient and her nurse. The patient is a poor candidate for any surgical intervention. We discussed possibility of plating the fracture with bone graft versus intramedullary rodding which are both extensive surgeries which she most likely would not tolerate. We will continue sling for immobilization, and pain management. We will sign off from an orthopedic standpoint. Please call our office with any questions or concerns regarding this patient.
[2016-08-21 08:57] LABS: Hemoglobin A1C 5.9 % (4.2-6.1)
[2016-08-21] MEDS: PANTOPRAZOLE 40 MG/10 ML VIAL IVP SCH (10:04)
[2016-08-21] MEDS: ceFAZolin 2 GM in SODIUM CHLORIDE 0.9% 100 ML IVPB SCH ×3 (10:05→23:35)
[2016-08-21] MEDS ORDERED: PHYTONADIONE 5 MG in SODIUM CHLORIDE 0.9% 50 ML IVPB STA ×2 (10:22→15:43)
--- NOTE | 2016-08-21 11:32 | P.PN ---
Subjective Principal diagnosis: GI bleed We will be consulted on this patient. She had been followed by Dr. Mehta for abdominal pain and GI bleed. The patient has had mild abdominal pain ongoing. Today she was noted to have melanotic stools and a drop in hemoglobin. Her INR is significant only elevated. She is currently being transferred to the ICU. Hemodynamically she is stable. Her cultures are showing persistent staph bacteremia. Her body fluid culture is showing staph aureus. Patient points to the upper mid abdomen as the source of her discomfort. She says it is unchanged. No nausea or vomiting. Objective - Vital Signs Vital signs: Vital Signs Temp 97.1 F L 08/21/16 08:00 Pulse 74 08/21/16 08:00 Resp 16 08/21/16 08:00 BP 150/71 08/21/16 08:00 Pulse Ox 98 08/21/16 08:51 Intake & Output 08/20/16 08/21/16 08/21/16 18:59 06:59 18:59 Intake Total 688 670 465 Output Total 550 1500 Balance 138 -830 465 Weight 79 kg 79.7 kg Intake: IV 320 0.9 320 Intake, IV Titration 100 Amount ceFAZolin 2 gm In Sodium 100 Chloride 0.9% 100 ml @ 100 mls/hr IVPB Q8HR [facility] Rx#:[id number] Oral 588 350 465 Output: Urine 550 1200 Stool 300 Other: Voiding Method Indwelling Catheter Indwelling Catheter Indwelling Catheter # Bowel Movements 1 - Exam Abdomen: Soft, nondistended, mild diffuse tenderness - Labs CBC & Chem 7: 08/21/16 06:42 08/21/16 06:42 Labs: Abnormal Lab Results - Last 24 Hours (Table) 08/20/16 08/20/16 08/20/16 Range/Units 06:07 11:30 16:33 WBC 11.7 H (3.8-10.6) k/uL RBC 2.79 L (3.80-5.40) m/uL Hgb 7.7 L (11.4-16.0) gm/dL Hct 26.5 L (34.0-46.0) % MCHC 29.1 L (31.0-37.0) g/dL Plt Count 631 H (150-450) k/uL Neutrophils # 9.3 H (1.3-7.7) k/uL Monocytes # (0-1.0) k/uL PT (9.0-12.0) sec Sodium (137-145) mmol/L Chloride (98-107) mmol/L BUN (7-17) mg/dL Glucose (74-99) mg/dL POC Glucose (mg/dL) 284 H 308 H (75-99) mg/dL Crossmatch 08/20/16 08/20/16 08/21/16 Range/Units 20:58 21:05 06:29 WBC 12.5 H (3.8-10.6) k/uL RBC 2.55 L (3.80-5.40) m/uL Hgb 6.8 L* (11.4-16.0) gm/dL Hct 23.3 L (34.0-46.0) % MCHC 29.3 L (31.0-37.0) g/dL Plt Count 640 H (150-450) k/uL Neutrophils # 9.6 H (1.3-7.7) k/uL Monocytes # 1.2 H (0-1.0) k/uL PT (9.0-12.0) sec Sodium (137-145) mmol/L Chloride (98-107) mmol/L BUN (7-17) mg/dL Glucose (74-99) mg/dL POC Glucose (mg/dL) 273 H 242 H (75-99) mg/dL Crossmatch 08/21/16 08/21/16 08/21/16 Range/Units 06:42 06:42 06:42 WBC 12.4 H (3.8-10.6) k/uL RBC 2.56 L (3.80-5.40) m/uL Hgb 7.1 L (11.4-16.0) gm/dL Hct 23.9 L (34.0-46.0) % MCHC 29.7 L (31.0-37.0) g/dL Plt Count 679 H (150-450) k/uL Neutrophils # 9.6 H (1.3-7.7) k/uL Monocytes # 1.1 H (0-1.0) k/uL PT (9.0-12.0) sec Sodium 147 H (137-145) mmol/L Chloride 112 H (98-107) mmol/L BUN 41 H (7-17) mg/dL Glucose 225 H (74-99) mg/dL POC Glucose (mg/dL) (75-99) mg/dL Crossmatch See Detail 08/21/16 Range/Units 06:42 WBC (3.8-10.6) k/uL RBC (3.80-5.40) m/uL Hgb (11.4-16.0) gm/dL Hct (34.0-46.0) % MCHC (31.0-37.0) g/dL Plt Count (150-450) k/uL Neutrophils # (1.3-7.7) k/uL Monocytes # (0-1.0) k/uL PT 43.6 H (9.0-12.0) sec Sodium (137-145) mmol/L Chloride (98-107) mmol/L BUN (7-17) mg/dL Glucose (74-99) mg/dL POC Glucose (mg/dL) (75-99) mg/dL Crossmatch Microbiology - Last 24 Hours (Table) 08/18/16 14:40 Anaerobic Culture - Preliminary Aspirate Presumptive Staph aureus 08/16/16 04:29 Blood Culture - Preliminary Blood No Growth after 120 hours 08/18/16 14:40 Gram Stain - Preliminary Aspirate Body Fluid Culture - Preliminary Assessment and Plan (1) Upper GI bleeding Narrative/Plan: Spoke with GI. Await their upper endoscopy. We'll follow with you. Status: Acute
[2016-08-21] MEDS: DOCUSATE 100 MG CAP PO SCH (11:50)
[2016-08-21] MEDS: POLYETHYLENE GLYCOL 3350 17 GM POWD.PACK PO SCH (11:51)
[2016-08-21 11:55] LABS: Glucose,Whole Blood 269 mg/dL (75-99)
--- NOTE | 2016-08-21 12:50 | P.PN ---
Subjective Principal diagnosis: Anemia sepsis bacteremia 80-year-old female admitted with acute non-ST elevated MN with chest pain and elevated troponins with abdominal pain, anemia and suspected GI bleed. During her hospitalization patient has not had evidence of bloody emesis or bowel movement until last night she had a large black-colored bowel movement with a drop in hemoglobin. Hemoglobin yesterday morning was 7.7 which has been consistent since her admission it decreased to 6.8 and presently 7.1. She received a unit of blood 5 days ago with reaction and rigors. Additionally patient has positive Staphylococcus aureus blood cultures status post CLARIBEL. Recent fall with humerus fracture status post bone biopsy secondary to radiographic imaging suggesting a possible lytic lesion. EGD colonoscopy was discussed over the past week in regards to workup of her anemia however on 2 occasions she has declined. She was transferred to the ICU this morning with an INR of 4.4. IV vitamin K has been given. Repeat CBC PT/ INR is scheduled for 2 PM. Presently reporting diffuse mild abdominal pain across the midabdomen. Black-colored bowel movement 2 hours ago. No reports of hematemesis or coffee-ground emesis. No IV pressors. Receiving intravenous Protonix. Objective - Vital Signs Vital signs: Vital Signs Temp 97.1 F L 08/21/16 08:00 Pulse 85 08/21/16 12:00 Resp 16 08/21/16 12:00 BP 150/71 08/21/16 08:00 Pulse Ox 98 08/21/16 08:51 Intake & Output 08/20/16 08/21/16 08/21/16 18:59 06:59 18:59 Intake Total 688 670 705 Output Total 550 1500 300 Balance 138 -830 405 Weight 79 kg 79.7 kg Intake: IV 320 0.9 320 Intake, IV Titration 100 Amount ceFAZolin 2 gm In Sodium 100 Chloride 0.9% 100 ml @ 100 mls/hr IVPB Q8HR [facility] Rx#:[id number] Oral 588 350 705 Output: Urine 550 1200 Stool 300 300 Other: Voiding Method Indwelling Catheter Indwelling Catheter Indwelling Catheter # Bowel Movements 1 - Exam General appearance: The patient is alert, no acute distress week pale.. HET: Head is normocephalic and atraumatic. Pupils are equal and reactive. Oropharynx is clear without lesions. Neck: Supple without lymphadenopathy. Trachea midline. Heart: S1 S2. Regular rate and rhythm. Lungs: No crackles or wheezes are heard. Abdomen: Soft, mildly bloated with diffuse mild tenderness across mid abdomen with bowel sounds. No peritoneal signs. No palpable organomegaly or masses. Extremities: Left arm sling. Rectal: Black colored stool. Neurological: No focal deficits. Strength and sensation are grossly intact. - Labs CBC & Chem 7: 08/21/16 06:42 08/21/16 06:42 Labs: Abnormal Lab Results - Last 24 Hours (Table) 08/20/16 08/20/16 08/20/16 Range/Units 06:07 16:33 20:58 WBC 11.7 H (3.8-10.6) k/uL RBC 2.79 L (3.80-5.40) m/uL Hgb 7.7 L (11.4-16.0) gm/dL Hct 26.5 L (34.0-46.0) % MCHC 29.1 L (31.0-37.0) g/dL Plt Count 631 H (150-450) k/uL Neutrophils # 9.3 H (1.3-7.7) k/uL Monocytes # (0-1.0) k/uL PT (9.0-12.0) sec Sodium (137-145) mmol/L Chloride (98-107) mmol/L BUN (7-17) mg/dL Glucose (74-99) mg/dL POC Glucose (mg/dL) 308 H 273 H (75-99) mg/dL Crossmatch 08/20/16 08/21/16 08/21/16 Range/Units 21:05 06:29 06:42 WBC 12.5 H (3.8-10.6) k/uL RBC 2.55 L (3.80-5.40) m/uL Hgb 6.8 L* (11.4-16.0) gm/dL Hct 23.3 L (34.0-46.0) % MCHC 29.3 L (31.0-37.0) g/dL Plt Count 640 H (150-450) k/uL Neutrophils # 9.6 H (1.3-7.7) k/uL Monocytes # 1.2 H (0-1.0) k/uL PT (9.0-12.0) sec Sodium 147 H (137-145) mmol/L Chloride 112 H (98-107) mmol/L BUN 41 H (7-17) mg/dL Glucose 225 H (74-99) mg/dL POC Glucose (mg/dL) 242 H (75-99) mg/dL Crossmatch 08/21/16 08/21/16 08/21/16 Range/Units 06:42 06:42 06:42 WBC 12.4 H (3.8-10.6) k/uL RBC 2.56 L (3.80-5.40) m/uL Hgb 7.1 L (11.4-16.0) gm/dL Hct 23.9 L (34.0-46.0) % MCHC 29.7 L (31.0-37.0) g/dL Plt Count 679 H (150-450) k/uL Neutrophils # 9.6 H (1.3-7.7) k/uL Monocytes # 1.1 H (0-1.0) k/uL PT 43.6 H (9.0-12.0) sec Sodium (137-145) mmol/L Chloride (98-107) mmol/L BUN (7-17) mg/dL Glucose (74-99) mg/dL POC Glucose (mg/dL) (75-99) mg/dL Crossmatch See Detail 08/21/16 Range/Units 11:52 WBC (3.8-10.6) k/uL RBC (3.80-5.40) m/uL Hgb (11.4-16.0) gm/dL Hct (34.0-46.0) % MCHC (31.0-37.0) g/dL Plt Count (150-450) k/uL Neutrophils # (1.3-7.7) k/uL Monocytes # (0-1.0) k/uL PT (9.0-12.0) sec Sodium (137-145) mmol/L Chloride (98-107) mmol/L BUN (7-17) mg/dL Glucose (74-99) mg/dL POC Glucose (mg/dL) 269 H (75-99) mg/dL Crossmatch Microbiology - Last 24 Hours (Table) 08/18/16 14:40 Anaerobic Culture - Preliminary Aspirate Presumptive Staph aureus 08/16/16 04:29 Blood Culture - Preliminary Blood No Growth after 120 hours 08/18/16 14:40 Gram Stain - Preliminary Aspirate Body Fluid Culture - Preliminary Assessment and Plan Plan: 1. Normocytic hypochromic iron deficiency anemia component of acute blood loss secondary to acute GI bleed with melena. 2. History of recent GI bleed anemia status post EGD May 2016 with findings of mild diffuse gastritis. Colonoscopy 2010 polypectomy. 3. Bacteremia with Staphylococcus aureus blood cultures. Status post CLARIBEL. 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 4. Status post fall 3 months ago with possible lytic lesion left humerus. Cannot rule out underlying malignancy. 5. Non-ST elevated MN. 6. Congestive heart failure. Plan: 1. Plans to proceed with EGD evaluation once INR is therapeutic later today/ a.m. Further recommendations to follow after review of PT/INR CBC this afternoon. Assessment and plan of care discussed with Dr. Goldberg
[2016-08-21] MEDS: METOPROLOL TARTRATE 25 MG TAB PO SCH ×2 (13:23→21:20)
[2016-08-21] MEDS: EZETIMIBE 10 MG TAB PO SCH (13:23)
[2016-08-21] MEDS: LISINOPRIL 5 MG TAB PO SCH (13:23)
[2016-08-21] MEDS: ISOSORBIDE MONONITRATE ER 30 MG TAB.ER.24H PO SCH (13:23)
[2016-08-21] MEDS: SODIUM BICARBONATE TAB 650 MG TAB PO SCH ×2 (13:24→21:20)
--- NOTE | 2016-08-21 14:06 | P.PN ---
Subjective This is a 80-year-old female, patient of [facility]. She has a known past medical history of myocardial infarction and three-vessel coronary artery bypass graft, coronary artery disease, hyperlipidemia, hypertension, diabetes, chronic kidney disease and dementia. Also history of anemia with recent EGD and May 2016 revealing gastritis colonoscopy was several years ago. She presents to the hospital with complaints of chest pain, abdominal pain , black stools with episodes of diarrhea. She's found have evidence of a non- ST elevated TN. Not able to be on aspirin or IV heparin at this time due to her significant anemia. Patient is found to have a UTI as well as positive blood cultures growing presumptive staph aureus. Patient was reevaluated again on 08/19/2016 Today patient is complaining of chest pain, she will be transferred back to telemetry floor, order stool restart IV heparin and to reconsult cardiology were initiated Patient reevaluated on 08/20/2016 see note by Melyssa GARLAND Patient was evaluated on 08/21/2016 Hgb down to 6.8 patient having shortness of breath she was transferred back to ICU Objective - Vital Signs Vital signs: Vital Signs Temp 97.1 F L 08/21/16 08:00 Pulse 66 08/21/16 13:08 Resp 15 08/21/16 13:08 BP 134/70 08/21/16 13:08 Pulse Ox 98 08/21/16 08:51 Intake & Output 08/20/16 08/21/16 08/21/16 18:59 06:59 18:59 Intake Total 688 670 725 Output Total 550 1500 375 Balance 138 -830 350 Weight 79 kg 79.7 kg Intake: IV 320 20 0.9 320 20 Intake, IV Titration 100 Amount ceFAZolin 2 gm In Sodium 100 Chloride 0.9% 100 ml @ 100 mls/hr IVPB Q8HR [facility] Rx#:[id number] Oral 588 350 705 Output: Urine 550 1200 75 Stool 300 300 Other: Voiding Method Indwelling Catheter Indwelling Catheter Indwelling Catheter # Bowel Movements 1 - Exam In general patient is alert and oriented 3 in no apparent distress HEENT head normocephalic and atraumatic Neck is supple no JVD no goiter no lymphadenopathy Chest exam reveals a few scattered rhonchi no wheezing Cardiac exam reveals regular heart sounds S1 and S2 with mild tachycardia no gallops no murmurs Abdomen is soft nontender no organomegaly Extremity exam reveals no edema no cyanosis or clubbing - Labs CBC & Chem 7: 08/21/16 06:42 08/21/16 06:42 Labs: Abnormal Lab Results - Last 24 Hours (Table) 08/20/16 08/20/16 08/20/16 Range/Units 16:33 20:58 21:05 WBC 12.5 H (3.8-10.6) k/uL RBC 2.55 L (3.80-5.40) m/uL Hgb 6.8 L* (11.4-16.0) gm/dL Hct 23.3 L (34.0-46.0) % MCHC 29.3 L (31.0-37.0) g/dL Plt Count 640 H (150-450) k/uL Neutrophils # 9.6 H (1.3-7.7) k/uL Monocytes # 1.2 H (0-1.0) k/uL PT (9.0-12.0) sec Sodium (137-145) mmol/L Chloride (98-107) mmol/L BUN (7-17) mg/dL Glucose (74-99) mg/dL POC Glucose (mg/dL) 308 H 273 H (75-99) mg/dL Crossmatch 08/21/16 08/21/16 08/21/16 Range/Units 06:29 06:42 06:42 WBC 12.4 H (3.8-10.6) k/uL RBC 2.56 L (3.80-5.40) m/uL Hgb 7.1 L (11.4-16.0) gm/dL Hct 23.9 L (34.0-46.0) % MCHC 29.7 L (31.0-37.0) g/dL Plt Count 679 H (150-450) k/uL Neutrophils # 9.6 H (1.3-7.7) k/uL Monocytes # 1.1 H (0-1.0) k/uL PT (9.0-12.0) sec Sodium 147 H (137-145) mmol/L Chloride 112 H (98-107) mmol/L BUN 41 H (7-17) mg/dL Glucose 225 H (74-99) mg/dL POC Glucose (mg/dL) 242 H (75-99) mg/dL Crossmatch 08/21/16 08/21/16 08/21/16 Range/Units 06:42 06:42 11:52 WBC (3.8-10.6) k/uL RBC (3.80-5.40) m/uL Hgb (11.4-16.0) gm/dL Hct (34.0-46.0) % MCHC (31.0-37.0) g/dL Plt Count (150-450) k/uL Neutrophils # (1.3-7.7) k/uL Monocytes # (0-1.0) k/uL PT 43.6 H (9.0-12.0) sec Sodium (137-145) mmol/L Chloride (98-107) mmol/L BUN (7-17) mg/dL Glucose (74-99) mg/dL POC Glucose (mg/dL) 269 H (75-99) mg/dL Crossmatch See Detail Microbiology - Last 24 Hours (Table) 08/18/16 14:40 Anaerobic Culture - Preliminary Aspirate Presumptive Staph aureus 08/16/16 04:29 Blood Culture - Preliminary Blood No Growth after 120 hours 08/18/16 14:40 Gram Stain - Preliminary Aspirate Body Fluid Culture - Preliminary Assessment and Plan Plan: #1 Non-ST segment elevation myocardial infarction. Evaluated by cardiology during this admission #2 Anemia, suspect possible GI bleed in a patient with recent EGD in May 2016, and last colonoscopy 2010. Gastroenterology following, will proceed with colonoscopy when general medical condition improves. HGB 6.8 yesterday and 7.1 today #3 Sepsis, blood culture positive for Staphylococcus aureus. Currently maintained on IV vancomycin #4 Febrile illness secondary to above and suspected urinary tract infection as well. #5 Acute exacerbation of diastolic congestive heart failure. #6 Hyperlipidemia. #7 Diabetes mellitus. #8 Hypertension. #9 History of coronary artery disease with previous coronary artery bypass grafting. #10 Left upper extremity pain secondary to recent left humeral fracture. #11 Valvular heart disease with severe aortic stenosis, moderate to severe mitral regurgitation, moderate to severe pulmonary hypertension. #12 Acute kidney injury secondary to hypotension and hypoprofusion improved cr down to 0.95 , will recheck labs in am # 13 Elevated INR not on any anticoagulation Dr Song following
[2016-08-21 14:57] LABS: RBC 2.41 m/uL (3.80-5.40); WBC 14.6 k/uL (3.8-10.6); WBC (Perox) 14.89
[2016-08-21 14:59] LABS: CH 25.9; CHCM 28.2; HCT 22.2 % (34.0-46.0); HDW 3.02; HGB 6.3 gm/dL (11.4-16.0); Lymphocytes % (A) 12 %; MCH 26.2 pg (25.0-35.0); MCHC 28.4 g/dL (31.0-37.0); Neutrophils % (A) 74 %; RDW 15.5 % (11.5-15.5)
[2016-08-21 15:00] LABS: Basophils # (A) 0.1 k/uL (0-0.2); Basophils % (A) 0 %; Eosinophils # (A) 0.2 k/uL (0-0.7); Eosinophils % (A) 1 %; INR 2.4 (<1.1); Luc # (Auto) 0.41; Luc % (Auto) 3; Lymphocytes # (A) 1.8 k/uL (1.0-4.8); Monocytes # (A) 1.4 k/uL (0-1.0); Monocytes % (A) 10 %; Neutrophils # (A) 10.7 k/uL (1.3-7.7); Prothrombin Time 23.4 sec (9.0-12.0)
--- NOTE | 2016-08-21 15:41 | P.PN ---
Subjective Principal diagnosis: Non ST elevation myocardial infarction, anemia 80-year-old female patient who initially presented on 08/13/2016 because of increased shortness of breath. The patient was ruled in for an acute non-ST segment elevation myocardial infarction. The patient is known to have coronary artery disease with previous bypass surgery. Other comorbid conditions include hypertension diabetes mellitus and hyperlipidemia and congestion heart failure. During this current hospitalization, the patient was also found to be septic with MRSA bacteremia, acute kidney injury secondary to acute ischemic trigger necrosis, sepsis, hypotension, pressor dependence, an acute transfusion reaction secondary to her packed RBC transfusion for which the patient was given for a low hemoglobin. The patient was also suspected to have a fracture of the left humerus. A CAT scan was done yesterday showed a comminuted fracture of the left humeral neck, and pathologic fracture was suspected with a concern of an underlying malignancy. There was soft tissue thickening in the area which could be related to edema post fracture or soft tissue mass. Note that I have seen this patient back in May 2016 for chest pain and suspected GI bleeding and back then was noted the patient sustained a fracture to her left humerus and this was being treated conservatively and she did not require any surgical intervention. The patient also is known to have history of syncope during which she did have had sustained the left humeral fracture, episodes of dysphagia, chronic anemia, small bowel obstruction related to a benign lesion of the intestine that was resected, chronic renal failure stage III kidney disease, CHF with diastolic dysfunction and ejection fraction of 55- 60%, aortic stenosis and previous coronary artery bypass surgery. On 08/17/2016 I'm seeing this patient in follow-up. The patient is resting comfortably in bed. The patient has no respiratory distress. Hemodynamically she is stable and the patient has been off dopamine for more than 12 hours. She is producing adequate amount of urine output. Her pulse ox is around 98% on 2 L of oxygen nasal cannula. She has a cardiac murmur which is related to aortic stenosis. As mentioned earlier, the patient had staph aureus Ammann MSSA and the blood, on 3 different blood cultures and the most recent blood cultures negative. For that reason, the patient was covered with cefazolin 2 g every 12 hours. Renal function is improving and creatinine is down to 1.5. Rest of the electrolytes show no major abnormalities. The patient continues to have a component of non-anion gap metabolic acidosis with a bicarb level of 18. The chest x-ray from admission showed evidence of any pneumonia. Echocardiogram from May 2016 showed a ejection fraction of 55-60% along with moderate degree of aortic stenosis. The patient is seen again today 08/18/2016 in follow-up on the regular medical floor. She is awake and alert in no acute distress. She did undergo transesophageal echocardiogram yesterday. There is no evidence of vegetation on any of the valves. There was noted severe aortic stenosis with moderate to severe mitral regurgitation and moderate to severe pulmonary hypertension. Today she denies any worsening shortness of breath. She is maintaining good O2 saturations in the mid 90s on 2 L/m per nasal cannula. She's been hemodynamically stable. She remains on cefazolin. Bicarb remains low at 18. She remains on sodium bicarbonate tablets. She remains in a negative balance. Creatinine improved to 1.50. Her hemoglobin is drifting down currently at 7.2. The patient is seen again today 08/19/2016 in follow-up on the regular medical floor. She is continuing to maintain O2 saturations in the 90s on 2 L/m. Nasal cannula. She is currently afebrile. No leukocytosis. Hemoglobin stable at 7.4. Bicarb is improved slightly at 20. Creatinine has recovered to 0.85. She did have a biopsy of the left shoulder results of which are pending. She still has significant discomfort in that shoulder. The patient was seen again today 08/21/2016 as she was now being transferred to the intensive care unit. She had developed recurrent GI bleeding. She had black tarry stools last night and a drop in her hemoglobin to 6.8. A repeat hemoglobin was 7.1 and then later today he was back to 6.3. She did have a previous reaction to a blood transfusion earlier this admission as well. Also noted was her INR 4.4. She did receive some vitamin K and it is currently 2.4. GI services and surgical services have been involved with her as well. Currently, she is seen resting fairly comfortable in bed. She is somewhat anxious due to her situation but denies any worsening shortness of breath, cough or congestion. No chest pain, no lightheadedness or dizziness. She is maintaining O2 saturations at 100% on 2 L/m per nasal cannula. She remains hemodynamically stable. Not requiring any pressor support. Objective - Vital Signs Vital signs: Vital Signs Temp 97.9 F 08/21/16 14:00 Pulse 65 08/21/16 15:00 Resp 20 08/21/16 15:00 BP 136/63 08/21/16 15:00 Pulse Ox 100 08/21/16 15:00 Intake & Output 08/20/16 08/21/16 08/21/16 18:59 06:59 18:59 Intake Total 688 670 765 Output Total 550 1500 490 Balance 138 -830 275 Weight 79 kg 79.7 kg Intake: IV 320 60 0.9 320 60 Intake, IV Titration 100 Amount ceFAZolin 2 gm In Sodium 100 Chloride 0.9% 100 ml @ 100 mls/hr IVPB Q8HR [facility] Rx#:[id number] Oral 588 350 705 Output: Urine 550 1200 190 Stool 300 300 Other: Voiding Method Indwelling Catheter Indwelling Catheter Indwelling Catheter # Bowel Movements 1 - Exam GENERAL EXAM: Weak, pale. EYES: Normal reaction of pupils, equal size. NOSE: Clear with pink turbinates. THROAT: No erythema or exudates. NECK: No masses, no JVD. CHEST: No chest wall deformity. LUNGS: Equal air entry with crackles in the posterior bases more so on the left. CVS: S1 and S2 normal with an audible murmur, regular rhythm. ABDOMEN: No hepatosplenomegaly, normal bowel sounds, no guarding or rigidity. Extremities: There is 1+ peripheral edema. No clubbing, no cyanosis. Peripheral pulses are intact. - Labs CBC & Chem 7: 08/21/16 14:40 08/21/16 06:42 Labs: Abnormal Lab Results - Last 24 Hours (Table) 08/20/16 08/20/16 08/20/16 Range/Units 16:33 20:58 21:05 WBC 12.5 H (3.8-10.6) k/uL RBC 2.55 L (3.80-5.40) m/uL Hgb 6.8 L* (11.4-16.0) gm/dL Hct 23.3 L (34.0-46.0) % MCHC 29.3 L (31.0-37.0) g/dL Plt Count 640 H (150-450) k/uL Neutrophils # 9.6 H (1.3-7.7) k/uL Monocytes # 1.2 H (0-1.0) k/uL PT (9.0-12.0) sec Sodium (137-145) mmol/L Chloride (98-107) mmol/L BUN (7-17) mg/dL Glucose (74-99) mg/dL POC Glucose (mg/dL) 308 H 273 H (75-99) mg/dL Crossmatch 08/21/16 08/21/16 08/21/16 Range/Units 06:29 06:42 06:42 WBC 12.4 H (3.8-10.6) k/uL RBC 2.56 L (3.80-5.40) m/uL Hgb 7.1 L (11.4-16.0) gm/dL Hct 23.9 L (34.0-46.0) % MCHC 29.7 L (31.0-37.0) g/dL Plt Count 679 H (150-450) k/uL Neutrophils # 9.6 H (1.3-7.7) k/uL Monocytes # 1.1 H (0-1.0) k/uL PT (9.0-12.0) sec Sodium 147 H (137-145) mmol/L Chloride 112 H (98-107) mmol/L BUN 41 H (7-17) mg/dL Glucose 225 H (74-99) mg/dL POC Glucose (mg/dL) 242 H (75-99) mg/dL Crossmatch 08/21/16 08/21/16 08/21/16 Range/Units 06:42 06:42 11:52 WBC (3.8-10.6) k/uL RBC (3.80-5.40) m/uL Hgb (11.4-16.0) gm/dL Hct (34.0-46.0) % MCHC (31.0-37.0) g/dL Plt Count (150-450) k/uL Neutrophils # (1.3-7.7) k/uL Monocytes # (0-1.0) k/uL PT 43.6 H (9.0-12.0) sec Sodium (137-145) mmol/L Chloride (98-107) mmol/L BUN (7-17) mg/dL Glucose (74-99) mg/dL POC Glucose (mg/dL) 269 H (75-99) mg/dL Crossmatch See Detail 08/21/16 08/21/16 Range/Units 14:40 14:40 WBC 14.6 H (3.8-10.6) k/uL RBC 2.41 L (3.80-5.40) m/uL Hgb 6.3 L* (11.4-16.0) gm/dL Hct 22.2 L (34.0-46.0) % MCHC 28.4 L (31.0-37.0) g/dL Plt Count 647 H (150-450) k/uL Neutrophils # 10.7 H (1.3-7.7) k/uL Monocytes # 1.4 H (0-1.0) k/uL PT 23.4 H (9.0-12.0) sec Sodium (137-145) mmol/L Chloride (98-107) mmol/L BUN (7-17) mg/dL Glucose (74-99) mg/dL POC Glucose (mg/dL) (75-99) mg/dL Crossmatch Microbiology - Last 24 Hours (Table) 08/18/16 14:40 Gram Stain - Preliminary Aspirate Body Fluid Culture - Preliminary 08/18/16 14:40 Anaerobic Culture - Preliminary Aspirate Presumptive Staph aureus 08/16/16 04:29 Blood Culture - Preliminary Blood No Growth after 120 hours Assessment and Plan Plan: Impression: #1 Non-ST segment elevation myocardial infarction. #2 Anemia, suspect possible GI bleed in a patient with recent EGD in May 2016, and last colonoscopy 2010. #3 Sepsis secondary to presumptive Staphylococcus aureus. #4 Febrile illness secondary to above and suspected urinary tract infection as well. #5 Acute exacerbation of diastolic congestive heart failure. #6 Hyperlipidemia. #7 Diabetes mellitus. #8 Hypertension. #9 History of coronary artery disease with previous coronary artery bypass grafting. #10 Left upper extremity pain secondary to recent left humeral fracture. Biopsy is pending. #11 Valvular heart disease with severe aortic stenosis, moderate to severe mitral regurgitation, moderate to severe pulmonary hypertension. #12 Acute kidney injury secondary to hypotension/hypo-profusion. Plan: The patient was seen and evaluated by Dr. Matos. We will continue to monitor her here closely in the intensive care unit. Continue to monitor her hemoglobin. We will await final decisions regarding EGD/colonoscopy which the patient has declined earlier this admission. She has been slow to progress based on her multiple above-mentioned comorbidities. We will continue to follow.
[2016-08-21] MEDS ORDERED: diphenhydrAMINE 50 MG CAP PO ONE (15:42)
[2016-08-21] MEDS ORDERED: FAMOTIDINE 20 MG TAB PO ONE (15:42)
[2016-08-21] MEDS ORDERED: methylPREDNISolone SOD SUCCI 125 MG/2 ML VIAL IV ONE (15:42)
--- NOTE | 2016-08-21 17:19 | PN ---
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 INTERVAL HISTORY: The patient is afebrile. The patient did develop a GI bleed, for which the patient has been transferred to the ICU. Patient is hemodynamically stable, not on pressor support. She is slightly more awake, alert. The patient denies significant chest pain or cough. No abdominal pain. On examination, blood pressure is 136/63 with a pulse of 65, temperature 97.9. She is 100% on 3 L nasal cannula. General description is an elderly female lying in bed in no distress. RESPIRATORY SYSTEM: Unlabored breathing. Clear to auscultation anteriorly. HEART: S1, S2. Regular rate and rhythm. ABDOMEN: Soft. No tenderness. Left humerus area with no significant swelling or redness. LABS: Hemoglobin is 6.3 with a white count of 14.6 with BUN of 41, creatinine 0.96. INR was 4.4. Repeat is 2.4. The culture from the left humerus aspirate is positive for Staphylococcus aureus. DIAGNOSTIC IMPRESSION AND PLAN: Patient with methicillin-susceptible Staphylococcus aureus bacteremia. 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 The patient will continue on cefazolin. Plan will be to get a PICC line once her INR comes down, with a plan for at least 6 weeks of outpatient IV antibiotic therapy. Plan of care was discussed with the attending physician. Continue supportive care.
[2016-08-21 18:09] LABS: Glucose,Whole Blood 219 mg/dL (75-99)
[2016-08-21] MEDS: ATORVASTATIN 40 MG TAB PO SCH (21:19)
[2016-08-21] MEDS: CHOLECALCIFEROL 1,000 UNIT TAB PO SCH (21:19)
[2016-08-21] MEDS: MULTIVITAMINS, THERA 1 EACH TAB PO SCH (21:20)
[2016-08-21] MEDS: DONEPEZIL 10 MG TAB PO SCH (21:20)
[2016-08-21] MEDS: FENOFIBRATE 160 MG TAB PO SCH (21:20)
[2016-08-21] MEDS: SERTRALINE 100 MG TAB PO SCH (21:20)
[2016-08-21 21:48] LABS: Glucose,Whole Blood 214 mg/dL (75-99)
[2016-08-22 00:26] LABS: Basophils % (A) 0 %; CH 26.5; CHCM 28.3; Eosinophils % (A) 0 %; HDW 3.58; Hypochromasia Marked; Luc % (Auto) 1; Lymphocytes # (A) 0.8 k/uL (1.0-4.8); Lymphocytes % (A) 6 %; MCH 26.1 pg (25.0-35.0); MCHC 27.8 g/dL (31.0-37.0); Mean Platelet Volume 6.7; Monocytes # (A) 0.5 k/uL (0-1.0); Monocytes % (A) 3 %; Neutrophils % (A) 90 %; Poikilocytosis Slight; RBC 3.09 m/uL (3.80-5.40); RDW 15.2 % (11.5-15.5); WBC 13.3 k/uL (3.8-10.6); WBC (Perox) 13.75
[2016-08-22 00:31] LABS: HGB 8.1 gm/dL (11.4-16.0)
[2016-08-22 06:17] LABS: CH 26.6; CHCM 28.4; HCT 29.1 % (34.0-46.0); HDW 3.71; HGB 8.4 gm/dL (11.4-16.0); Hypochromasia Marked; MCHC 28.8 g/dL (31.0-37.0); MCV 93.7 fL (80.0-100.0); Mean Platelet Volume 7.8; Poikilocytosis Slight; RBC 3.11 m/uL (3.80-5.40); RDW 15.5 % (11.5-15.5); WBC (Perox) 11.71
[2016-08-22 06:19] LABS: INR 1.4 (<1.1); Partial Thromboplastin Time 22.5 sec (22.0-30.0); Prothrombin Time 13.5 sec (9.0-12.0)
[2016-08-22] MEDS: HYDROmorphone 1 MG/ML 1 ML SYRINGE IVP PRN (06:30)
[2016-08-22 06:33] LABS: Calcium 9.6 mg/dL (8.4-10.2); Magnesium 2.5 mg/dL (1.6-2.3); Phosphorous 4.2 mg/dL (2.5-4.5); Potassium 5.2 mmol/L (3.5-5.1)
[2016-08-22 06:40] LABS: Add Differential Manual Differential
[2016-08-22 06:42] LABS: Nucleated Red Blood Cells 1 /100 WBC (0-0)
[2016-08-22 06:44] LABS: Manual Review Performed; Total Cells Counted 200; WBC 11.4 k/uL (3.8-10.6)
[2016-08-22 06:46] LABS: Polychromasia Present
[2016-08-22] MEDS: ceFAZolin 2 GM in SODIUM CHLORIDE 0.9% 100 ML IVPB SCH ×3 (09:36→23:14)
--- NOTE | 2016-08-22 09:38 | P.PN ---
Subjective Patient is seen in follow-up for acute kidney injury. Her baseline creatinine is 1 and peaked at 2.29 this admission. It was down to 0.95 yesterday and is slightly worse at 1.1 today. 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 There was concern for endocarditis and she underwent a CLARIBEL which revealed no vegetations however she does have severe aortic stenosis, moderate to severe mitral regurgitation and pulmonary hypertension. She is nonoliguric. Hemoglobin was down to 6.3 today for which she did receive 1 unit of blood transfusion. Hemoglobin is up to 8.4 today. She has been refusing a colonoscopy but there are potential plans of doing an EGD this admission. Vital signs are stable. General: The patient appeared well nourished and normally developed. HEENT: Head exam is unremarkable. Neck is without jugular venous distension. LUNGS: Lungs are clear to auscultation and percussion. Breath sounds decreased. HEART: Rate and Rhythm are regular. First and second heart sounds normal. No murmurs, rubs or gallops. ABDOMEN: Abdominal exam reveals normal bowel sounds. Non-tender and non- distended. No evidence of peritonitis. EXTREMITITES: No clubbing, cyanosis, or edema. Objective - Vital Signs Vital signs: Vital Signs Temp 96.5 F L 08/22/16 00:00 Pulse 62 08/22/16 06:00 Resp 12 08/22/16 06:00 BP 166/75 08/22/16 06:00 Pulse Ox 95 08/22/16 05:00 Intake & Output 08/21/16 08/22/16 08/22/16 18:59 06:59 18:59 Intake Total 1135 630 Output Total 970 685 Balance 165 -55 Intake: IV 430 220 0.9 120 220 PRBC 310 Intake, IV Titration 100 Amount ceFAZolin 2 gm In Sodium 100 Chloride 0.9% 100 ml @ 100 mls/hr IVPB Q8HR [facility] Rx#:[id number] Oral 705 Blood Product 0 310 Rc As-1 Unit 0 310 [id number] Output: Urine 370 685 Stool 600 Other: Voiding Method Indwelling Catheter Indwelling Catheter - Labs CBC & Chem 7: 08/22/16 05:30 08/22/16 05:30 Labs: Abnormal Lab Results - Last 24 Hours (Table) 08/21/16 08/21/16 08/21/16 Range/Units 06:42 11:52 14:40 WBC (3.8-10.6) k/uL RBC (3.80-5.40) m/uL Hgb (11.4-16.0) gm/dL Hct (34.0-46.0) % MCHC (31.0-37.0) g/dL Plt Count (150-450) k/uL Neutrophils # (1.3-7.7) k/uL Neutrophils # (Manual) (1.3-7.7) k/uL Lymphocytes # (1.0-4.8) k/uL Monocytes # (0-1.0) k/uL Nucleated RBCs (0-0) /100 WBC PT 23.4 H (9.0-12.0) sec Sodium (137-145) mmol/L Potassium (3.5-5.1) mmol/L Chloride (98-107) mmol/L BUN (7-17) mg/dL Creatinine (0.52-1.04) mg/dL Glucose (74-99) mg/dL POC Glucose (mg/dL) 269 H (75-99) mg/dL Magnesium (1.6-2.3) mg/dL Crossmatch See Detail 08/21/16 08/21/16 08/21/16 Range/Units 14:40 18:07 21:28 WBC 14.6 H (3.8-10.6) k/uL RBC 2.41 L (3.80-5.40) m/uL Hgb 6.3 L* (11.4-16.0) gm/dL Hct 22.2 L (34.0-46.0) % MCHC 28.4 L (31.0-37.0) g/dL Plt Count 647 H (150-450) k/uL Neutrophils # 10.7 H (1.3-7.7) k/uL Neutrophils # (Manual) (1.3-7.7) k/uL Lymphocytes # (1.0-4.8) k/uL Monocytes # 1.4 H (0-1.0) k/uL Nucleated RBCs (0-0) /100 WBC PT (9.0-12.0) sec Sodium (137-145) mmol/L Potassium (3.5-5.1) mmol/L Chloride (98-107) mmol/L BUN (7-17) mg/dL Creatinine (0.52-1.04) mg/dL Glucose (74-99) mg/dL POC Glucose (mg/dL) 219 H 214 H (75-99) mg/dL Magnesium (1.6-2.3) mg/dL Crossmatch 08/22/16 08/22/16 08/22/16 Range/Units 00:16 05:30 05:30 WBC 13.3 H 11.4 H (3.8-10.6) k/uL RBC 3.09 L 3.11 L (3.80-5.40) m/uL Hgb 8.1 L D 8.4 L (11.4-16.0) gm/dL Hct 29.0 L 29.1 L (34.0-46.0) % MCHC 27.8 L 28.8 L (31.0-37.0) g/dL Plt Count 611 H 627 H (150-450) k/uL Neutrophils # 12.0 H (1.3-7.7) k/uL Neutrophils # (Manual) 9.3 H (1.3-7.7) k/uL Lymphocytes # 0.8 L (1.0-4.8) k/uL Monocytes # (0-1.0) k/uL Nucleated RBCs 1 H (0-0) /100 WBC PT (9.0-12.0) sec Sodium 149 H (137-145) mmol/L Potassium 5.2 H (3.5-5.1) mmol/L Chloride 111 H (98-107) mmol/L BUN 48 H (7-17) mg/dL Creatinine 1.10 H (0.52-1.04) mg/dL Glucose 172 H (74-99) mg/dL POC Glucose (mg/dL) (75-99) mg/dL Magnesium 2.5 H (1.6-2.3) mg/dL Crossmatch 08/22/16 Range/Units 05:30 WBC (3.8-10.6) k/uL RBC (3.80-5.40) m/uL Hgb (11.4-16.0) gm/dL Hct (34.0-46.0) % MCHC (31.0-37.0) g/dL Plt Count (150-450) k/uL Neutrophils # (1.3-7.7) k/uL Neutrophils # (Manual) (1.3-7.7) k/uL Lymphocytes # (1.0-4.8) k/uL Monocytes # (0-1.0) k/uL Nucleated RBCs (0-0) /100 WBC PT 13.5 H (9.0-12.0) sec Sodium (137-145) mmol/L Potassium (3.5-5.1) mmol/L Chloride (98-107) mmol/L BUN (7-17) mg/dL Creatinine (0.52-1.04) mg/dL Glucose (74-99) mg/dL POC Glucose (mg/dL) (75-99) mg/dL Magnesium (1.6-2.3) mg/dL Crossmatch Microbiology - Last 24 Hours (Table) 08/18/16 14:40 Gram Stain - Final Aspirate Body Fluid Culture - Final 08/16/16 04:29 Blood Culture - Final Blood No Growth after 144 hours 08/18/16 14:40 Anaerobic Culture - Preliminary Aspirate Presumptive Staph aureus Assessment and Plan Plan: Assessment: #1. Nonoliguric acute kidney injury secondary to ischemic ATN secondary to severe sepsis and anemia. Creatinine up to 1.1 today. Urinalysis noted to be benign. #2. Volume overload as evidenced by vascular congestion on previous chest x- ray. #3. Severe aortic stenosis and moderate to severe mitral regurgitation. #4. Moderate to severe pulmonary hypertension. #5. 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 #6. Anemia due to underlying GI bleed. Apparently she's been refusing colonoscopy. Status post blood transfusion on August 21. Hemoglobin 8.4 this morning. #7. Hypernatremia secondary to lack of oral water intake. Plan: Start D5W to be run at 50 mL an hour. Avoid nephrotoxic agents and hypotensive episodes. Repeat electrolytes in the morning. Antibiotics per infectious disease recommendations. Monitor hemoglobin and transfuse as needed. Potential EGD per GI this admission.
[2016-08-22] MEDS: ISOSORBIDE MONONITRATE ER 30 MG TAB.ER.24H PO SCH (09:39)
[2016-08-22] MEDS: DOCUSATE 100 MG CAP PO SCH (09:39)
[2016-08-22] MEDS: LISINOPRIL 5 MG TAB PO SCH (09:39)
[2016-08-22] MEDS: EZETIMIBE 10 MG TAB PO SCH (09:39)
[2016-08-22] MEDS: INSULIN LISPRO (humaLOG) 300 UNIT/3 ML VIAL SQ SCH ×4 (09:40→21:20)
[2016-08-22] MEDS: SODIUM BICARBONATE TAB 650 MG TAB PO SCH ×2 (09:40→21:42)
[2016-08-22] MEDS: METOPROLOL TARTRATE 25 MG TAB PO SCH ×2 (09:40→21:42)
--- NOTE | 2016-08-22 10:55 | P.PN ---
Subjective Principal diagnosis: GI bleed Patient did have 1 additional melanotic stool. She says her abdominal pain is improved. She is hungry. Hemoglobin is improved. INR is now better as well at 1.4. Objective - Vital Signs Vital signs: Vital Signs Temp 98.0 F 08/22/16 08:00 Pulse 70 08/22/16 10:00 Resp 34 H 08/22/16 10:00 BP 154/85 08/22/16 10:00 Pulse Ox 96 08/22/16 08:00 Intake & Output 08/21/16 08/22/16 08/22/16 18:59 06:59 18:59 Intake Total 1135 630 Output Total 970 685 Balance 165 -55 Intake: IV 430 220 0.9 120 220 PRBC 310 Intake, IV Titration 100 Amount ceFAZolin 2 gm In Sodium 100 Chloride 0.9% 100 ml @ 100 mls/hr IVPB Q8HR [facility] Rx#:[id number] Oral 705 Blood Product 0 310 Rc As-1 Unit 0 310 [id number] Output: Urine 370 685 Stool 600 Other: Voiding Method Indwelling Catheter Indwelling Catheter Indwelling Catheter - Exam Abdomen: Soft, nondistended, mild diffuse tenderness - Labs CBC & Chem 7: 08/22/16 05:30 08/22/16 05:30 Labs: Abnormal Lab Results - Last 24 Hours (Table) 08/21/16 08/21/16 08/21/16 Range/Units 06:42 11:52 14:40 WBC (3.8-10.6) k/uL RBC (3.80-5.40) m/uL Hgb (11.4-16.0) gm/dL Hct (34.0-46.0) % MCHC (31.0-37.0) g/dL Plt Count (150-450) k/uL Neutrophils # (1.3-7.7) k/uL Neutrophils # (Manual) (1.3-7.7) k/uL Lymphocytes # (1.0-4.8) k/uL Monocytes # (0-1.0) k/uL Nucleated RBCs (0-0) /100 WBC PT 23.4 H (9.0-12.0) sec Sodium (137-145) mmol/L Potassium (3.5-5.1) mmol/L Chloride (98-107) mmol/L BUN (7-17) mg/dL Creatinine (0.52-1.04) mg/dL Glucose (74-99) mg/dL POC Glucose (mg/dL) 269 H (75-99) mg/dL Magnesium (1.6-2.3) mg/dL Crossmatch See Detail 08/21/16 08/21/16 08/21/16 Range/Units 14:40 18:07 21:28 WBC 14.6 H (3.8-10.6) k/uL RBC 2.41 L (3.80-5.40) m/uL Hgb 6.3 L* (11.4-16.0) gm/dL Hct 22.2 L (34.0-46.0) % MCHC 28.4 L (31.0-37.0) g/dL Plt Count 647 H (150-450) k/uL Neutrophils # 10.7 H (1.3-7.7) k/uL Neutrophils # (Manual) (1.3-7.7) k/uL Lymphocytes # (1.0-4.8) k/uL Monocytes # 1.4 H (0-1.0) k/uL Nucleated RBCs (0-0) /100 WBC PT (9.0-12.0) sec Sodium (137-145) mmol/L Potassium (3.5-5.1) mmol/L Chloride (98-107) mmol/L BUN (7-17) mg/dL Creatinine (0.52-1.04) mg/dL Glucose (74-99) mg/dL POC Glucose (mg/dL) 219 H 214 H (75-99) mg/dL Magnesium (1.6-2.3) mg/dL Crossmatch 08/22/16 08/22/16 08/22/16 Range/Units 00:16 05:30 05:30 WBC 13.3 H 11.4 H (3.8-10.6) k/uL RBC 3.09 L 3.11 L (3.80-5.40) m/uL Hgb 8.1 L D 8.4 L (11.4-16.0) gm/dL Hct 29.0 L 29.1 L (34.0-46.0) % MCHC 27.8 L 28.8 L (31.0-37.0) g/dL Plt Count 611 H 627 H (150-450) k/uL Neutrophils # 12.0 H (1.3-7.7) k/uL Neutrophils # (Manual) 9.3 H (1.3-7.7) k/uL Lymphocytes # 0.8 L (1.0-4.8) k/uL Monocytes # (0-1.0) k/uL Nucleated RBCs 1 H (0-0) /100 WBC PT (9.0-12.0) sec Sodium 149 H (137-145) mmol/L Potassium 5.2 H (3.5-5.1) mmol/L Chloride 111 H (98-107) mmol/L BUN 48 H (7-17) mg/dL Creatinine 1.10 H (0.52-1.04) mg/dL Glucose 172 H (74-99) mg/dL POC Glucose (mg/dL) (75-99) mg/dL Magnesium 2.5 H (1.6-2.3) mg/dL Crossmatch 08/22/16 Range/Units 05:30 WBC (3.8-10.6) k/uL RBC (3.80-5.40) m/uL Hgb (11.4-16.0) gm/dL Hct (34.0-46.0) % MCHC (31.0-37.0) g/dL Plt Count (150-450) k/uL Neutrophils # (1.3-7.7) k/uL Neutrophils # (Manual) (1.3-7.7) k/uL Lymphocytes # (1.0-4.8) k/uL Monocytes # (0-1.0) k/uL Nucleated RBCs (0-0) /100 WBC PT 13.5 H (9.0-12.0) sec Sodium (137-145) mmol/L Potassium (3.5-5.1) mmol/L Chloride (98-107) mmol/L BUN (7-17) mg/dL Creatinine (0.52-1.04) mg/dL Glucose (74-99) mg/dL POC Glucose (mg/dL) (75-99) mg/dL Magnesium (1.6-2.3) mg/dL Crossmatch Microbiology - Last 24 Hours (Table) 05/16/17 14:40 Anaerobic Culture - Final Aspirate Staphylococcus aureus 08/18/16 14:40 Gram Stain - Final Aspirate Body Fluid Culture - Final 08/16/16 04:29 Blood Culture - Final Blood No Growth after 144 hours Assessment and Plan (1) Upper GI bleeding Narrative/Plan: Continue liquid diet for now. Await GI plans regarding possible upper endoscopy. Status: Acute
--- NOTE | 2016-08-22 11:54 | P.PN ---
Subjective This is a 80-year-old female, patient of [facility]. She has a known past medical history of myocardial infarction and three-vessel coronary artery bypass graft, coronary artery disease, hyperlipidemia, hypertension, diabetes, chronic kidney disease and dementia. Also history of anemia with recent EGD and May 2016 revealing gastritis colonoscopy was several years ago. She presents to the hospital with complaints of chest pain, abdominal pain , black stools with episodes of diarrhea. She's found have evidence of a non- ST elevated HI. Not able to be on aspirin or IV heparin at this time due to her significant anemia. Patient is found to have a UTI as well as positive blood cultures growing presumptive staph aureus. Patient was reevaluated again on 08/19/2016 Today patient is complaining of chest pain, she will be transferred back to telemetry floor, order stool restart IV heparin and to reconsult cardiology were initiated Patient reevaluated on 08/20/2016 see note by Melyssa GARLAND Patient was evaluated on 08/21/2016 Hgb down to 6.8 patient having shortness of breath she was transferred back to ICU Objective - Vital Signs Vital signs: Vital Signs Temp 98.0 F 08/22/16 08:00 Pulse 70 08/22/16 10:00 Resp 34 H 08/22/16 10:00 BP 154/85 08/22/16 10:00 Pulse Ox 96 08/22/16 08:00 Intake & Output 08/21/16 08/22/16 08/22/16 18:59 06:59 18:59 Intake Total 1135 630 Output Total 970 685 Balance 165 -55 Intake: IV 430 220 0.9 120 220 PRBC 310 Intake, IV Titration 100 Amount ceFAZolin 2 gm In Sodium 100 Chloride 0.9% 100 ml @ 100 mls/hr IVPB Q8HR [facility] Rx#:[id number] Oral 705 Blood Product 0 310 Rc As-1 Unit 0 310 [id number] Output: Urine 370 685 Stool 600 Other: Voiding Method Indwelling Catheter Indwelling Catheter Indwelling Catheter - Exam In general patient is alert and oriented 3 in no apparent distress HEENT head normocephalic and atraumatic Neck is supple no JVD no goiter no lymphadenopathy Chest exam reveals a few scattered rhonchi no wheezing Cardiac exam reveals regular heart sounds S1 and S2 with mild tachycardia no gallops no murmurs Abdomen is soft nontender no organomegaly Extremity exam reveals no edema no cyanosis or clubbing - Labs CBC & Chem 7: 08/22/16 05:30 08/22/16 05:30 Labs: Abnormal Lab Results - Last 24 Hours (Table) 08/21/16 08/21/16 08/21/16 Range/Units 06:42 11:52 14:40 WBC (3.8-10.6) k/uL RBC (3.80-5.40) m/uL Hgb (11.4-16.0) gm/dL Hct (34.0-46.0) % MCHC (31.0-37.0) g/dL Plt Count (150-450) k/uL Neutrophils # (1.3-7.7) k/uL Neutrophils # (Manual) (1.3-7.7) k/uL Lymphocytes # (1.0-4.8) k/uL Monocytes # (0-1.0) k/uL Nucleated RBCs (0-0) /100 WBC PT 23.4 H (9.0-12.0) sec Sodium (137-145) mmol/L Potassium (3.5-5.1) mmol/L Chloride (98-107) mmol/L BUN (7-17) mg/dL Creatinine (0.52-1.04) mg/dL Glucose (74-99) mg/dL POC Glucose (mg/dL) 269 H (75-99) mg/dL Magnesium (1.6-2.3) mg/dL Crossmatch See Detail 08/21/16 08/21/16 08/21/16 Range/Units 14:40 18:07 21:28 WBC 14.6 H (3.8-10.6) k/uL RBC 2.41 L (3.80-5.40) m/uL Hgb 6.3 L* (11.4-16.0) gm/dL Hct 22.2 L (34.0-46.0) % MCHC 28.4 L (31.0-37.0) g/dL Plt Count 647 H (150-450) k/uL Neutrophils # 10.7 H (1.3-7.7) k/uL Neutrophils # (Manual) (1.3-7.7) k/uL Lymphocytes # (1.0-4.8) k/uL Monocytes # 1.4 H (0-1.0) k/uL Nucleated RBCs (0-0) /100 WBC PT (9.0-12.0) sec Sodium (137-145) mmol/L Potassium (3.5-5.1) mmol/L Chloride (98-107) mmol/L BUN (7-17) mg/dL Creatinine (0.52-1.04) mg/dL Glucose (74-99) mg/dL POC Glucose (mg/dL) 219 H 214 H (75-99) mg/dL Magnesium (1.6-2.3) mg/dL Crossmatch 08/22/16 08/22/16 08/22/16 Range/Units 00:16 05:30 05:30 WBC 13.3 H 11.4 H (3.8-10.6) k/uL RBC 3.09 L 3.11 L (3.80-5.40) m/uL Hgb 8.1 L D 8.4 L (11.4-16.0) gm/dL Hct 29.0 L 29.1 L (34.0-46.0) % MCHC 27.8 L 28.8 L (31.0-37.0) g/dL Plt Count 611 H 627 H (150-450) k/uL Neutrophils # 12.0 H (1.3-7.7) k/uL Neutrophils # (Manual) 9.3 H (1.3-7.7) k/uL Lymphocytes # 0.8 L (1.0-4.8) k/uL Monocytes # (0-1.0) k/uL Nucleated RBCs 1 H (0-0) /100 WBC PT (9.0-12.0) sec Sodium 149 H (137-145) mmol/L Potassium 5.2 H (3.5-5.1) mmol/L Chloride 111 H (98-107) mmol/L BUN 48 H (7-17) mg/dL Creatinine 1.10 H (0.52-1.04) mg/dL Glucose 172 H (74-99) mg/dL POC Glucose (mg/dL) (75-99) mg/dL Magnesium 2.5 H (1.6-2.3) mg/dL Crossmatch 08/22/16 Range/Units 05:30 WBC (3.8-10.6) k/uL RBC (3.80-5.40) m/uL Hgb (11.4-16.0) gm/dL Hct (34.0-46.0) % MCHC (31.0-37.0) g/dL Plt Count (150-450) k/uL Neutrophils # (1.3-7.7) k/uL Neutrophils # (Manual) (1.3-7.7) k/uL Lymphocytes # (1.0-4.8) k/uL Monocytes # (0-1.0) k/uL Nucleated RBCs (0-0) /100 WBC PT 13.5 H (9.0-12.0) sec Sodium (137-145) mmol/L Potassium (3.5-5.1) mmol/L Chloride (98-107) mmol/L BUN (7-17) mg/dL Creatinine (0.52-1.04) mg/dL Glucose (74-99) mg/dL POC Glucose (mg/dL) (75-99) mg/dL Magnesium (1.6-2.3) mg/dL Crossmatch Microbiology - Last 24 Hours (Table) 08/18/16 14:40 Anaerobic Culture - Final Aspirate Staphylococcus aureus 08/18/16 14:40 Gram Stain - Final Aspirate Body Fluid Culture - Final 08/16/16 04:29 Blood Culture - Final Blood No Growth after 144 hours Assessment and Plan Plan: #1 Non-ST segment elevation myocardial infarction. Evaluated by cardiology during this admission, no intervention recommended so far #2 Anemia, suspect possible GI bleed in a patient with recent EGD in May 2016, and last colonoscopy 2010. Gastroenterology following, will proceed with colonoscopy when general medical condition improves. HGB 6.8 yesterday and 7.1 today #3 Sepsis, blood culture positive for Staphylococcus aureus. Currently maintained on IV vancomycin #4 Febrile illness secondary to above and suspected urinary tract infection as well. #5 Acute exacerbation of diastolic congestive heart failure. #6 Hyperlipidemia. #7 Diabetes mellitus. #8 Hypertension. #9 History of coronary artery disease with previous coronary artery bypass grafting. #10 Left upper extremity pain secondary to recent left humeral fracture. #11 Valvular heart disease with severe aortic stenosis, moderate to severe mitral regurgitation, moderate to severe pulmonary hypertension. #12 Acute kidney injury secondary to hypotension and hypoprofusion improved cr down to 0.95 , will recheck labs in am # 13 Elevated INR not on any anticoagulation Dr Song following
[2016-08-22 12:24] LABS: Glucose,Whole Blood 202 mg/dL (75-99)
--- NOTE | 2016-08-22 12:27 | P.PN ---
Subjective Principal diagnosis: Non ST elevation myocardial infarction, anemia 80-year-old female patient who initially presented on 08/13/2016 because of increased shortness of breath. The patient was ruled in for an acute non-ST segment elevation myocardial infarction. The patient is known to have coronary artery disease with previous bypass surgery. Other comorbid conditions include hypertension diabetes mellitus and hyperlipidemia and congestion heart failure. During this current hospitalization, the patient was also found to be septic with MRSA bacteremia, acute kidney injury secondary to acute ischemic trigger necrosis, sepsis, hypotension, pressor dependence, an acute transfusion reaction secondary to her packed RBC transfusion for which the patient was given for a low hemoglobin. The patient was also suspected to have a fracture of the left humerus. A CAT scan was done yesterday showed a comminuted fracture of the left humeral neck, and pathologic fracture was suspected with a concern of an underlying malignancy. There was soft tissue thickening in the area which could be related to edema post fracture or soft tissue mass. Note that I have seen this patient back in May 2016 for chest pain and suspected GI bleeding and back then was noted the patient sustained a fracture to her left humerus and this was being treated conservatively and she did not require any surgical intervention. The patient also is known to have history of syncope during which she did have had sustained the left humeral fracture, episodes of dysphagia, chronic anemia, small bowel obstruction related to a benign lesion of the intestine that was resected, chronic renal failure stage III kidney disease, CHF with diastolic dysfunction and ejection fraction of 55- 60%, aortic stenosis and previous coronary artery bypass surgery. On 08/17/2016 I'm seeing this patient in follow-up. The patient is resting comfortably in bed. The patient has no respiratory distress. Hemodynamically she is stable and the patient has been off dopamine for more than 12 hours. She is producing adequate amount of urine output. Her pulse ox is around 98% on 2 L of oxygen nasal cannula. She has a cardiac murmur which is related to aortic stenosis. As mentioned earlier, the patient had staph aureus Ammann MSSA and the blood, on 3 different blood cultures and the most recent blood cultures negative. For that reason, the patient was covered with cefazolin 2 g every 12 hours. Renal function is improving and creatinine is down to 1.5. Rest of the electrolytes show no major abnormalities. The patient continues to have a component of non-anion gap metabolic acidosis with a bicarb level of 18. The chest x-ray from admission showed evidence of any pneumonia. Echocardiogram from May 2016 showed a ejection fraction of 55-60% along with moderate degree of aortic stenosis. The patient is seen again today 08/18/2016 in follow-up on the regular medical floor. She is awake and alert in no acute distress. She did undergo transesophageal echocardiogram yesterday. There is no evidence of vegetation on any of the valves. There was noted severe aortic stenosis with moderate to severe mitral regurgitation and moderate to severe pulmonary hypertension. Today she denies any worsening shortness of breath. She is maintaining good O2 saturations in the mid 90s on 2 L/m per nasal cannula. She's been hemodynamically stable. She remains on cefazolin. Bicarb remains low at 18. She remains on sodium bicarbonate tablets. She remains in a negative balance. Creatinine improved to 1.50. Her hemoglobin is drifting down currently at 7.2. The patient is seen again today 08/19/2016 in follow-up on the regular medical floor. She is continuing to maintain O2 saturations in the 90s on 2 L/m. Nasal cannula. She is currently afebrile. No leukocytosis. Hemoglobin stable at 7.4. Bicarb is improved slightly at 20. Creatinine has recovered to 0.85. She did have a biopsy of the left shoulder results of which are pending. She still has significant discomfort in that shoulder. The patient was seen again today 08/21/2016 as she was now being transferred to the intensive care unit. She had developed recurrent GI bleeding. She had black tarry stools last night and a drop in her hemoglobin to 6.8. A repeat hemoglobin was 7.1 and then later today he was back to 6.3. She did have a previous reaction to a blood transfusion earlier this admission as well. Also noted was her INR 4.4. She did receive some vitamin K and it is currently 2.4. GI services and surgical services have been involved with her as well. Currently, she is seen resting fairly comfortable in bed. She is somewhat anxious due to her situation but denies any worsening shortness of breath, cough or congestion. No chest pain, no lightheadedness or dizziness. She is maintaining O2 saturations at 100% on 2 L/m per nasal cannula. She remains hemodynamically stable. Not requiring any pressor support. The patient is seen again today 08/22/2016 in the intensive care unit. She is awake and alert in no acute distress. She did receive a unit of transfer views packed red blood cells and her current hemoglobin is 8.4. INR 1.4. GI services are on the case and are she has not had any further black tarry stools considering EGD. The patient has continued to decline a colonoscopy. She has not had any further black tarry stools or hematoemesis. She continues on Protonix IV. Aspirate of the left shoulder did come back positive for methicillin sensitive Staphylococcus aureus in her blood cultures were also positive for MSSA. She has been maintained on cefazolin. She remains hemodynamically stable. She is maintaining good O2 saturations at 96% on room air. She is afebrile. Current creatinine 1.10. Objective - Vital Signs Vital signs: Vital Signs Temp 98.0 F 08/22/16 08:00 Pulse 70 08/22/16 10:00 Resp 34 H 08/22/16 10:00 BP 154/85 08/22/16 10:00 Pulse Ox 96 08/22/16 08:00 Intake & Output 08/21/16 08/22/16 08/22/16 18:59 06:59 18:59 Intake Total 1135 630 Output Total 970 685 Balance 165 -55 Intake: IV 430 220 0.9 120 220 PRBC 310 Intake, IV Titration 100 Amount ceFAZolin 2 gm In Sodium 100 Chloride 0.9% 100 ml @ 100 mls/hr IVPB Q8HR [facility] Rx#:[id number] Oral 705 Blood Product 0 310 Rc As-1 Unit 0 310 [id number] Output: Urine 370 685 Stool 600 Other: Voiding Method Indwelling Catheter Indwelling Catheter Indwelling Catheter - Exam GENERAL EXAM: Weak, pale. EYES: Normal reaction of pupils, equal size. NOSE: Clear with pink turbinates. THROAT: No erythema or exudates. NECK: No masses, no JVD. CHEST: No chest wall deformity. LUNGS: Equal air entry with crackles in the posterior bases more so on the left. CVS: S1 and S2 normal with an audible murmur, regular rhythm. ABDOMEN: No hepatosplenomegaly, normal bowel sounds, no guarding or rigidity. Extremities: There is 1+ peripheral edema. No clubbing, no cyanosis. Peripheral pulses are intact. - Labs CBC & Chem 7: 08/22/16 05:30 08/22/16 05:30 Labs: Abnormal Lab Results - Last 24 Hours (Table) 08/21/16 08/21/16 08/21/16 Range/Units 06:42 14:40 14:40 WBC 14.6 H (3.8-10.6) k/uL RBC 2.41 L (3.80-5.40) m/uL Hgb 6.3 L* (11.4-16.0) gm/dL Hct 22.2 L (34.0-46.0) % MCHC 28.4 L (31.0-37.0) g/dL Plt Count 647 H (150-450) k/uL Neutrophils # 10.7 H (1.3-7.7) k/uL Neutrophils # (Manual) (1.3-7.7) k/uL Lymphocytes # (1.0-4.8) k/uL Monocytes # 1.4 H (0-1.0) k/uL Nucleated RBCs (0-0) /100 WBC PT 23.4 H (9.0-12.0) sec Sodium (137-145) mmol/L Potassium (3.5-5.1) mmol/L Chloride (98-107) mmol/L BUN (7-17) mg/dL Creatinine (0.52-1.04) mg/dL Glucose (74-99) mg/dL POC Glucose (mg/dL) (75-99) mg/dL Magnesium (1.6-2.3) mg/dL Crossmatch See Detail 08/21/16 08/21/16 08/22/16 Range/Units 18:07 21:28 00:16 WBC 13.3 H (3.8-10.6) k/uL RBC 3.09 L (3.80-5.40) m/uL Hgb 8.1 L D (11.4-16.0) gm/dL Hct 29.0 L (34.0-46.0) % MCHC 27.8 L (31.0-37.0) g/dL Plt Count 611 H (150-450) k/uL Neutrophils # 12.0 H (1.3-7.7) k/uL Neutrophils # (Manual) (1.3-7.7) k/uL Lymphocytes # 0.8 L (1.0-4.8) k/uL Monocytes # (0-1.0) k/uL Nucleated RBCs (0-0) /100 WBC PT (9.0-12.0) sec Sodium (137-145) mmol/L Potassium (3.5-5.1) mmol/L Chloride (98-107) mmol/L BUN (7-17) mg/dL Creatinine (0.52-1.04) mg/dL Glucose (74-99) mg/dL POC Glucose (mg/dL) 219 H 214 H (75-99) mg/dL Magnesium (1.6-2.3) mg/dL Crossmatch 08/22/16 08/22/16 08/22/16 Range/Units 05:30 05:30 05:30 WBC 11.4 H (3.8-10.6) k/uL RBC 3.11 L (3.80-5.40) m/uL Hgb 8.4 L (11.4-16.0) gm/dL Hct 29.1 L (34.0-46.0) % MCHC 28.8 L (31.0-37.0) g/dL Plt Count 627 H (150-450) k/uL Neutrophils # (1.3-7.7) k/uL Neutrophils # (Manual) 9.3 H (1.3-7.7) k/uL Lymphocytes # (1.0-4.8) k/uL Monocytes # (0-1.0) k/uL Nucleated RBCs 1 H (0-0) /100 WBC PT 13.5 H (9.0-12.0) sec Sodium 149 H (137-145) mmol/L Potassium 5.2 H (3.5-5.1) mmol/L Chloride 111 H (98-107) mmol/L BUN 48 H (7-17) mg/dL Creatinine 1.10 H (0.52-1.04) mg/dL Glucose 172 H (74-99) mg/dL POC Glucose (mg/dL) (75-99) mg/dL Magnesium 2.5 H (1.6-2.3) mg/dL Crossmatch Microbiology - Last 24 Hours (Table) 08/18/16 14:40 Anaerobic Culture - Final Aspirate Staphylococcus aureus 05/16/17 14:40 Gram Stain - Final Aspirate Body Fluid Culture - Final 08/16/16 04:29 Blood Culture - Final Blood No Growth after 144 hours Assessment and Plan Plan: Impression: #1 Non-ST segment elevation myocardial infarction. #2 Anemia, with recurrent bleeding. Status post 2 units of red blood cells. Current hemoglobin 8.4. GI services are on the case. #3 Sepsis secondary to Methicillin Sensitive Staphylococcus aureus. #4 Febrile illness secondary to above and suspected urinary tract infection as well. #5 Acute exacerbation of diastolic congestive heart failure. #6 Hyperlipidemia. #7 Diabetes mellitus. #8 Hypertension. #9 History of coronary artery disease with previous coronary artery bypass grafting. #10 Left upper extremity pain secondary to recent left humeral fracture. Aspirate is positive for MSSA. #11 Valvular heart disease with severe aortic stenosis, moderate to severe mitral regurgitation, moderate to severe pulmonary hypertension. #12 Acute kidney injury secondary to hypotension/hypo-profusion. Current creatinine 1.10. #13 Poor overall functional performance based on the above-mentioned multiple comorbidities. Plan: The patient was seen and evaluated by Dr. Matos. The patient is currently stable from the pulmonary and critical care standpoint. She is on no pressors. Her hemoglobin is 8.4. INR 1.4. She could be transferred out of the intensive care unit today. She is tolerating a clear liquid diet. We will await final decisions regarding EGD/colonoscopy which the patient has declined earlier this admission. She has been slow to progress and her overall prognosis is guarded based on her multiple above-mentioned comorbidities. We will continue to follow.
[2016-08-22] MEDS: POLYETHYLENE GLYCOL 3350 17 GM POWD.PACK PO SCH (14:36)
[2016-08-22] MEDS: DEXTROSE 5% IN WATER 1,000 ML IV SCH (14:39)
[2016-08-22] MEDS: PANTOPRAZOLE 40 MG/10 ML VIAL IVP SCH (15:44)
[2016-08-22 18:22] LABS: Glucose,Whole Blood 115 mg/dL (75-99)
[2016-08-22 21:15] LABS: Glucose,Whole Blood 103 mg/dL (75-99)
[2016-08-22] MEDS: ATORVASTATIN 40 MG TAB PO SCH (21:41)
[2016-08-22] MEDS: CHOLECALCIFEROL 1,000 UNIT TAB PO SCH (21:41)
[2016-08-22] MEDS: MULTIVITAMINS, THERA 1 EACH TAB PO SCH (21:42)
[2016-08-22] MEDS: FENOFIBRATE 160 MG TAB PO SCH (21:42)
[2016-08-22] MEDS: SERTRALINE 100 MG TAB PO SCH (21:42)
[2016-08-22] MEDS: DONEPEZIL 10 MG TAB PO SCH (21:42)
[2016-08-23] MEDS: HYDROmorphone 1 MG/ML 1 ML SYRINGE IVP PRN (03:28)
[2016-08-23 05:56] LABS: Glucose,Whole Blood 155 mg/dL (75-99)
[2016-08-23] MEDS: INSULIN LISPRO (humaLOG) 300 UNIT/3 ML VIAL SQ SCH ×4 (06:36→21:29)
[2016-08-23 06:48] LABS: Basophils % (A) 0 %; CH 26.6; CHCM 28.4; Eosinophils # (A) 0.2 k/uL (0-0.7); Eosinophils % (A) 2 %; HCT 28.6 % (34.0-46.0); HDW 3.66; HGB 8.1 gm/dL (11.4-16.0); Hypochromasia Marked; Luc # (Auto) 0.15; Luc % (Auto) 1; Lymphocytes # (A) 1.5 k/uL (1.0-4.8); Lymphocytes % (A) 14 %; MCH 26.5 pg (25.0-35.0); MCHC 28.2 g/dL (31.0-37.0); MCV 93.8 fL (80.0-100.0); Mean Platelet Volume 6.9; Monocytes # (A) 0.7 k/uL (0-1.0); Monocytes % (A) 7 %; Neutrophils # (A) 8.3 k/uL (1.3-7.7); Neutrophils % (A) 77 %; Poikilocytosis Slight; RBC 3.05 m/uL (3.80-5.40); RDW 15.5 % (11.5-15.5); WBC 10.8 k/uL (3.8-10.6); WBC (Perox) 11.13
[2016-08-23] MEDS: POLYETHYLENE GLYCOL 3350 17 GM POWD.PACK PO SCH (08:46)
[2016-08-23] MEDS: DEXTROSE 5% IN WATER 1,000 ML IV SCH (08:56)
[2016-08-23] MEDS: ceFAZolin 2 GM in SODIUM CHLORIDE 0.9% 100 ML IVPB SCH ×3 (08:57→23:19)
[2016-08-23] MEDS: LISINOPRIL 5 MG TAB PO SCH (08:58)
[2016-08-23] MEDS: SODIUM BICARBONATE TAB 650 MG TAB PO SCH ×2 (08:58→21:08)
[2016-08-23] MEDS: DOCUSATE 100 MG CAP PO SCH (08:58)
[2016-08-23] MEDS: EZETIMIBE 10 MG TAB PO SCH (08:58)
[2016-08-23] MEDS: METOPROLOL TARTRATE 25 MG TAB PO SCH ×2 (08:59→21:08)
[2016-08-23] MEDS: PANTOPRAZOLE 40 MG/10 ML VIAL IVP SCH (08:59)
[2016-08-23] MEDS: ISOSORBIDE MONONITRATE ER 30 MG TAB.ER.24H PO SCH (08:59)
--- NOTE | 2016-08-23 09:49 | P.PN ---
Subjective Patient is seen in follow-up for acute kidney injury. Her baseline creatinine is 1 and peaked at 2.29 this admission. It came down to 0.95 and was slightly worse at 1.1 yesterday. 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 There was concern for endocarditis and she underwent a CLARIBEL which revealed no vegetations however she does have severe aortic stenosis, moderate to severe mitral regurgitation and pulmonary hypertension. She is nonoliguric. Hemoglobin was down to 6.3 this admission for which she did receive blood transfusion. Hemoglobin is 8.1 today. She has been refusing a colonoscopy but there are potential plans of doing an EGD this admission. She is nauseous this morning. No active bleeding. Vital signs are stable. General: The patient appeared well nourished and normally developed. HEENT: Head exam is unremarkable. Neck is without jugular venous distension. LUNGS: Lungs are clear to auscultation and percussion. Breath sounds decreased. HEART: Rate and Rhythm are regular. First and second heart sounds normal. No murmurs, rubs or gallops. ABDOMEN: Abdominal exam reveals normal bowel sounds. Non-tender and non- distended. No evidence of peritonitis. EXTREMITITES: No clubbing, cyanosis, or edema. Objective - Vital Signs Vital signs: Vital Signs Temp 97.0 F L 08/23/16 03:50 Pulse 65 08/23/16 03:52 Resp 18 08/23/16 03:52 BP 142/63 08/23/16 03:50 Pulse Ox 93 L 08/23/16 03:50 Intake & Output 08/22/16 08/23/16 08/23/16 18:59 06:59 18:59 Intake Total 1330 Output Total 1015 750 Balance 315 -750 Intake: IV 240 0.9 240 Intake, IV Titration 250 Amount Dextrose 5% in Water 1, 150 000 ml @ 50 mls/hr IV . Q20H [facility] Rx#:[id number] ceFAZolin 2 gm In Sodium 100 Chloride 0.9% 100 ml @ 100 mls/hr IVPB Q8HR [facility] Rx#:[id number] Oral 840 Output: Urine 415 750 Stool 600 Other: Voiding Method Indwelling Catheter Indwelling Catheter - Labs CBC & Chem 7: 08/23/16 06:09 08/22/16 05:30 Labs: Abnormal Lab Results - Last 24 Hours (Table) 08/21/16 08/22/16 08/22/16 Range/Units 06:42 12:22 18:20 WBC (3.8-10.6) k/uL RBC (3.80-5.40) m/uL Hgb (11.4-16.0) gm/dL Hct (34.0-46.0) % MCHC (31.0-37.0) g/dL Plt Count (150-450) k/uL Neutrophils # (1.3-7.7) k/uL POC Glucose (mg/dL) 202 H 115 H (75-99) mg/dL Stool Occult Blood (Negative) Crossmatch See Detail 08/22/16 08/23/16 08/23/16 Range/Units 21:14 03:40 05:55 WBC (3.8-10.6) k/uL RBC (3.80-5.40) m/uL Hgb (11.4-16.0) gm/dL Hct (34.0-46.0) % MCHC (31.0-37.0) g/dL Plt Count (150-450) k/uL Neutrophils # (1.3-7.7) k/uL POC Glucose (mg/dL) 103 H 155 H (75-99) mg/dL Stool Occult Blood Positive H (Negative) Crossmatch 08/23/16 Range/Units 06:09 WBC 10.8 H (3.8-10.6) k/uL RBC 3.05 L (3.80-5.40) m/uL Hgb 8.1 L (11.4-16.0) gm/dL Hct 28.6 L (34.0-46.0) % MCHC 28.2 L (31.0-37.0) g/dL Plt Count 606 H (150-450) k/uL Neutrophils # 8.3 H (1.3-7.7) k/uL POC Glucose (mg/dL) (75-99) mg/dL Stool Occult Blood (Negative) Crossmatch Microbiology - Last 24 Hours (Table) 08/18/16 14:40 Anaerobic Culture - Final Aspirate Staphylococcus aureus 08/18/16 14:40 Gram Stain - Final Aspirate Body Fluid Culture - Final 08/16/16 04:29 Blood Culture - Final Blood No Growth after 144 hours Assessment and Plan Plan: Assessment: #1. Nonoliguric acute kidney injury secondary to ischemic ATN secondary to severe sepsis and anemia. Creatinine up to 1.1 as of yesterday. Urinalysis noted to be benign. #2. Volume overload as evidenced by vascular congestion on previous chest x- ray. #3. Severe aortic stenosis and moderate to severe mitral regurgitation. #4. Moderate to severe pulmonary hypertension. #5. 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 #6. Anemia due to underlying GI bleed. Apparently she's been refusing colonoscopy. Status post blood transfusion on August 21. Hemoglobin 8.4 this morning. #7. Hypernatremia secondary to lack of oral water intake. Plan: Continue D5W to be run at 50 mL an hour. Avoid nephrotoxic agents and hypotensive episodes. Repeat electrolytes in the morning. Antibiotics per infectious disease recommendations. Monitor hemoglobin and transfuse as needed. Potential EGD per GI this admission.
--- NOTE | 2016-08-23 10:07 | P.PN ---
Subjective 80-year-old female admitted with acute non-ST elevated [place] with chest pain and elevated troponins with abdominal pain, anemia and suspected GI bleed. During her hospitalization patient has not had evidence of bloody emesis or bowel movement until the night of the when she had a large black-colored bowel movement with a drop in hemoglobin. Hemoglobin decreased to 6.8 and she was transferred to ICU. Has received a unit of blood 5 days with reaction and rigors. Additionally patient has positive Staphylococcus aureus blood cultures status post CLARIBEL. Recent fall with humerus fracture status post bone biopsy secondary to radiographic imaging suggesting a possible lytic lesion. The patient had one smaller dark BM last night and received another unit of packed cells. No further bleeding and Hb is stable at around 8.1. Receiving protonix. Still declining colonoscopy. Objective - Vital Signs Vital signs: Vital Signs Temp 97.0 F L 08/22/16 19:33 Pulse 59 L 08/22/16 19:53 Resp 16 08/22/16 19:53 BP 108/57 08/22/16 19:33 Pulse Ox 100 08/22/16 19:33 Intake & Output 08/22/16 08/22/16 08/23/16 06:59 18:59 06:59 Intake Total 630 1330 Output Total 685 1015 Balance -55 315 Intake: IV 220 240 0.9 220 240 Intake, IV Titration 100 250 Amount Dextrose 5% in Water 1, 150 000 ml @ 50 mls/hr IV . Q20H [facility] Rx#:[id number] ceFAZolin 2 gm In Sodium 100 100 Chloride 0.9% 100 ml @ 100 mls/hr IVPB Q8HR [facility] Rx#:[id number] Oral 840 Blood Product 310 Rc As-1 Unit 310 [id number] Output: Urine 685 415 Stool 600 Other: Voiding Method Indwelling Catheter Indwelling Catheter Indwelling Catheter - Exam General: Alert, oriented in no acute distress Cardiopulmonary: Heart regular, no abnormal sounds, lungs clear with no dullness to percussion Abdomen: Soft, no tenderness or guarding, BS positive Extremities: no cyanosis or edema - Labs CBC & Chem 7: 08/23/16 06:09 08/22/16 05:30 Labs: Abnormal Lab Results - Last 24 Hours (Table) 08/21/16 08/21/16 08/22/16 Range/Units 06:42 21:28 00:16 WBC 13.3 H (3.8-10.6) k/uL RBC 3.09 L (3.80-5.40) m/uL Hgb 8.1 L D (11.4-16.0) gm/dL Hct 29.0 L (34.0-46.0) % MCHC 27.8 L (31.0-37.0) g/dL Plt Count 611 H (150-450) k/uL Neutrophils # 12.0 H (1.3-7.7) k/uL Neutrophils # (Manual) (1.3-7.7) k/uL Lymphocytes # 0.8 L (1.0-4.8) k/uL Nucleated RBCs (0-0) /100 WBC PT (9.0-12.0) sec Sodium (137-145) mmol/L Potassium (3.5-5.1) mmol/L Chloride (98-107) mmol/L BUN (7-17) mg/dL Creatinine (0.52-1.04) mg/dL Glucose (74-99) mg/dL POC Glucose (mg/dL) 214 H (75-99) mg/dL Magnesium (1.6-2.3) mg/dL Crossmatch See Detail 08/22/16 08/22/16 08/22/16 Range/Units 05:30 05:30 05:30 WBC 11.4 H (3.8-10.6) k/uL RBC 3.11 L (3.80-5.40) m/uL Hgb 8.4 L (11.4-16.0) gm/dL Hct 29.1 L (34.0-46.0) % MCHC 28.8 L (31.0-37.0) g/dL Plt Count 627 H (150-450) k/uL Neutrophils # (1.3-7.7) k/uL Neutrophils # (Manual) 9.3 H (1.3-7.7) k/uL Lymphocytes # (1.0-4.8) k/uL Nucleated RBCs 1 H (0-0) /100 WBC PT 13.5 H (9.0-12.0) sec Sodium 149 H (137-145) mmol/L Potassium 5.2 H (3.5-5.1) mmol/L Chloride 111 H (98-107) mmol/L BUN 48 H (7-17) mg/dL Creatinine 1.10 H (0.52-1.04) mg/dL Glucose 172 H (74-99) mg/dL POC Glucose (mg/dL) (75-99) mg/dL Magnesium 2.5 H (1.6-2.3) mg/dL Crossmatch 08/22/16 08/22/16 Range/Units 12:22 18:20 WBC (3.8-10.6) k/uL RBC (3.80-5.40) m/uL Hgb (11.4-16.0) gm/dL Hct (34.0-46.0) % MCHC (31.0-37.0) g/dL Plt Count (150-450) k/uL Neutrophils # (1.3-7.7) k/uL Neutrophils # (Manual) (1.3-7.7) k/uL Lymphocytes # (1.0-4.8) k/uL Nucleated RBCs (0-0) /100 WBC PT (9.0-12.0) sec Sodium (137-145) mmol/L Potassium (3.5-5.1) mmol/L Chloride (98-107) mmol/L BUN (7-17) mg/dL Creatinine (0.52-1.04) mg/dL Glucose (74-99) mg/dL POC Glucose (mg/dL) 202 H 115 H (75-99) mg/dL Magnesium (1.6-2.3) mg/dL Crossmatch Microbiology - Last 24 Hours (Table) 08/18/16 14:40 Anaerobic Culture - Final Aspirate Staphylococcus aureus 08/18/16 14:40 Gram Stain - Final Aspirate Body Fluid Culture - Final 08/16/16 04:29 Blood Culture - Final Blood No Growth after 144 hours Assessment and Plan Plan: GI bleeding stabilizing at this point. EGD around 2 months ago was normal. Is receiving protonix which would cover for gastritis/esophagitis or ulcer disease. No evidence of accelerated bleeding to require endoscopic intervention. Still declining colonoscopy. Will continue same management. Keeping EGD as a contingency based on her course.
--- NOTE | 2016-08-23 11:17 | P.PN ---
Subjective Principal diagnosis: GI bleed Patient without new complaints. No further bloody stools. She was seen by GI yesterday evening and is declining upper endoscopy at this time. Apparently she had a recent upper endoscopy 2 months ago. Her pain persisted although she states this is the same chronic abdominal pain that she has had for years. Objective - Vital Signs Vital signs: Vital Signs Temp 98.1 F 08/23/16 08:00 Pulse 60 08/23/16 08:00 Resp 16 08/23/16 08:00 BP 126/57 08/23/16 08:00 Pulse Ox 95 08/23/16 08:00 Intake & Output 08/22/16 08/23/16 08/23/16 18:59 06:59 18:59 Intake Total 1330 Output Total 1015 750 Balance 315 -750 Intake: IV 240 0.9 240 Intake, IV Titration 250 Amount Dextrose 5% in Water 1, 150 000 ml @ 50 mls/hr IV . Q20H [facility] Rx#:[id number] ceFAZolin 2 gm In Sodium 100 Chloride 0.9% 100 ml @ 100 mls/hr IVPB Q8HR [facility] Rx#:[id number] Oral 840 Output: Urine 415 750 Stool 600 Other: Voiding Method Indwelling Catheter Indwelling Catheter Indwelling Catheter - Exam Abdomen: Soft, nondistended, mild diffuse tenderness - Labs CBC & Chem 7: 08/23/16 06:09 08/22/16 05:30 Labs: Abnormal Lab Results - Last 24 Hours (Table) 08/21/16 08/22/16 08/22/16 Range/Units 06:42 12:22 18:20 WBC (3.8-10.6) k/uL RBC (3.80-5.40) m/uL Hgb (11.4-16.0) gm/dL Hct (34.0-46.0) % MCHC (31.0-37.0) g/dL Plt Count (150-450) k/uL Neutrophils # (1.3-7.7) k/uL POC Glucose (mg/dL) 202 H 115 H (75-99) mg/dL Stool Occult Blood (Negative) Crossmatch See Detail 08/22/16 08/23/16 08/23/16 Range/Units 21:14 03:40 05:55 WBC (3.8-10.6) k/uL RBC (3.80-5.40) m/uL Hgb (11.4-16.0) gm/dL Hct (34.0-46.0) % MCHC (31.0-37.0) g/dL Plt Count (150-450) k/uL Neutrophils # (1.3-7.7) k/uL POC Glucose (mg/dL) 103 H 155 H (75-99) mg/dL Stool Occult Blood Positive H (Negative) Crossmatch 08/23/16 Range/Units 06:09 WBC 10.8 H (3.8-10.6) k/uL RBC 3.05 L (3.80-5.40) m/uL Hgb 8.1 L (11.4-16.0) gm/dL Hct 28.6 L (34.0-46.0) % MCHC 28.2 L (31.0-37.0) g/dL Plt Count 606 H (150-450) k/uL Neutrophils # 8.3 H (1.3-7.7) k/uL POC Glucose (mg/dL) (75-99) mg/dL Stool Occult Blood (Negative) Crossmatch Microbiology - Last 24 Hours (Table) 08/18/16 14:40 Anaerobic Culture - Final Aspirate Staphylococcus aureus 08/18/16 14:40 Gram Stain - Final Aspirate Body Fluid Culture - Final 08/16/16 04:29 Blood Culture - Final Blood No Growth after 144 hours Assessment and Plan (1) Upper GI bleeding Narrative/Plan: Continue diet. Continue antiacid therapy. Monitor for any additional bleeding. Status: Acute
[2016-08-23 12:06] LABS: Glucose,Whole Blood 217 mg/dL (75-99)
--- NOTE | 2016-08-23 12:16 | P.PN ---
Subjective This is a 80-year-old female, patient of [facility]. She has a known past medical history of myocardial infarction and three-vessel coronary artery bypass graft, coronary artery disease, hyperlipidemia, hypertension, diabetes, chronic kidney disease and dementia. Also history of anemia with recent EGD and May 2016 revealing gastritis colonoscopy was several years ago. She presents to the hospital with complaints of chest pain, abdominal pain , black stools with episodes of diarrhea. She's found have evidence of a non- ST elevated [place]. Not able to be on aspirin or IV heparin at this time due to her significant anemia. Patient is found to have a UTI as well as positive blood cultures growing presumptive staph aureus. Patient was reevaluated again on 08/19/2016 Today patient is complaining of chest pain, she will be transferred back to telemetry floor, order stool restart IV heparin and to reconsult cardiology were initiated Patient reevaluated on 08/20/2016 see note by Melyssa GARLAND Patient was evaluated on 08/21/2016 Hgb down to 6.8 patient having shortness of breath she was transferred back to ICU Objective - Vital Signs Vital signs: Vital Signs Temp 98.1 F 08/23/16 08:00 Pulse 60 08/23/16 08:00 Resp 16 08/23/16 08:00 BP 126/57 08/23/16 08:00 Pulse Ox 95 08/23/16 08:00 Intake & Output 08/22/16 08/23/16 08/23/16 18:59 06:59 18:59 Intake Total 1330 Output Total 1015 750 Balance 315 -750 Intake: IV 240 0.9 240 Intake, IV Titration 250 Amount Dextrose 5% in Water 1, 150 000 ml @ 50 mls/hr IV . Q20H [facility] Rx#:[id number] ceFAZolin 2 gm In Sodium 100 Chloride 0.9% 100 ml @ 100 mls/hr IVPB Q8HR [facility] Rx#:[id number] Oral 840 Output: Urine 415 750 Stool 600 Other: Voiding Method Indwelling Catheter Indwelling Catheter Indwelling Catheter - Exam In general patient is alert and oriented 3 in no apparent distress HEENT head normocephalic and atraumatic Neck is supple no JVD no goiter no lymphadenopathy Chest exam reveals a few scattered rhonchi no wheezing Cardiac exam reveals regular heart sounds S1 and S2 with mild tachycardia no gallops no murmurs Abdomen is soft nontender no organomegaly Extremity exam reveals no edema no cyanosis or clubbing - Labs CBC & Chem 7: 08/23/16 06:09 08/22/16 05:30 Labs: Abnormal Lab Results - Last 24 Hours (Table) 08/21/16 08/22/16 08/22/16 Range/Units 06:42 12:22 18:20 WBC (3.8-10.6) k/uL RBC (3.80-5.40) m/uL Hgb (11.4-16.0) gm/dL Hct (34.0-46.0) % MCHC (31.0-37.0) g/dL Plt Count (150-450) k/uL Neutrophils # (1.3-7.7) k/uL POC Glucose (mg/dL) 202 H 115 H (75-99) mg/dL Stool Occult Blood (Negative) Crossmatch See Detail 08/22/16 08/23/16 08/23/16 Range/Units 21:14 03:40 05:55 WBC (3.8-10.6) k/uL RBC (3.80-5.40) m/uL Hgb (11.4-16.0) gm/dL Hct (34.0-46.0) % MCHC (31.0-37.0) g/dL Plt Count (150-450) k/uL Neutrophils # (1.3-7.7) k/uL POC Glucose (mg/dL) 103 H 155 H (75-99) mg/dL Stool Occult Blood Positive H (Negative) Crossmatch 08/23/16 08/23/16 Range/Units 06:09 12:04 WBC 10.8 H (3.8-10.6) k/uL RBC 3.05 L (3.80-5.40) m/uL Hgb 8.1 L (11.4-16.0) gm/dL Hct 28.6 L (34.0-46.0) % MCHC 28.2 L (31.0-37.0) g/dL Plt Count 606 H (150-450) k/uL Neutrophils # 8.3 H (1.3-7.7) k/uL POC Glucose (mg/dL) 217 H (75-99) mg/dL Stool Occult Blood (Negative) Crossmatch Microbiology - Last 24 Hours (Table) 08/18/16 14:40 Anaerobic Culture - Final Aspirate Staphylococcus aureus 08/18/16 14:40 Gram Stain - Final Aspirate Body Fluid Culture - Final Assessment and Plan Plan: #1 Non-ST segment elevation myocardial infarction. Evaluated by cardiology during this admission, no intervention recommended so far #2 Anemia, suspect possible GI bleed in a patient with recent EGD in May 2016, and last colonoscopy 2010. Gastroenterology following, will proceed with colonoscopy when general medical condition improves. HGB 8.1 today #3 Sepsis, blood culture positive for Staphylococcus aureus. Currently maintained on IV Cefazolin #4 Febrile illness secondary to above and suspected urinary tract infection as well. #5 Acute exacerbation of diastolic congestive heart failure. #6 Hyperlipidemia. #7 Diabetes mellitus. #8 Hypertension. #9 History of coronary artery disease with previous coronary artery bypass grafting. #10 Left upper extremity pain secondary to recent left humeral fracture. #11 Valvular heart disease with severe aortic stenosis, moderate to severe mitral regurgitation, moderate to severe pulmonary hypertension. #12 Acute kidney injury secondary to hypotension and hypoprofusion improved cr 1.1 yesterday , will recheck labs in am # 13 Elevated INR not on any anticoagulation Dr Song following
--- NOTE | 2016-08-23 14:02 | P.PN ---
Subjective 80-year-old female patient who initially presented on 08/13/2016 because of increased shortness of breath. The patient was ruled in for an acute non-ST segment elevation myocardial infarction. The patient is known to have coronary artery disease with previous bypass surgery. Other comorbid conditions include hypertension diabetes mellitus and hyperlipidemia and congestion heart failure. During this current hospitalization, the patient was also found to be septic with MRSA bacteremia, acute kidney injury secondary to acute ischemic trigger necrosis, sepsis, hypotension, pressor dependence, an acute transfusion reaction secondary to her packed RBC transfusion for which the patient was given for a low hemoglobin. The patient was also suspected to have a fracture of the left humerus. A CAT scan was done yesterday showed a comminuted fracture of the left humeral neck, and pathologic fracture was suspected with a concern of an underlying malignancy. There was soft tissue thickening in the area which could be related to edema post fracture or soft tissue mass. Note that I have seen this patient back in May 2016 for chest pain and suspected GI bleeding and back then was noted the patient sustained a fracture to her left humerus and this was being treated conservatively and she did not require any surgical intervention. The patient also is known to have history of syncope during which she did have had sustained the left humeral fracture, episodes of dysphagia, chronic anemia, small bowel obstruction related to a benign lesion of the intestine that was resected, chronic renal failure stage III kidney disease, CHF with diastolic dysfunction and ejection fraction of 55- 60%, aortic stenosis and previous coronary artery bypass surgery. On 08/17/2016 I'm seeing this patient in follow-up. The patient is resting comfortably in bed. The patient has no respiratory distress. Hemodynamically she is stable and the patient has been off dopamine for more than 12 hours. She is producing adequate amount of urine output. Her pulse ox is around 98% on 2 L of oxygen nasal cannula. She has a cardiac murmur which is related to aortic stenosis. As mentioned earlier, the patient had staph aureus Ammann MSSA and the blood, on 3 different blood cultures and the most recent blood cultures negative. For that reason, the patient was covered with cefazolin 2 g every 12 hours. Renal function is improving and creatinine is down to 1.5. Rest of the electrolytes show no major abnormalities. The patient continues to have a component of non-anion gap metabolic acidosis with a bicarb level of 18. The chest x-ray from admission showed evidence of any pneumonia. Echocardiogram from May 2016 showed a ejection fraction of 55-60% along with moderate degree of aortic stenosis. The patient is seen again today 08/18/2016 in follow-up on the regular medical floor. She is awake and alert in no acute distress. She did undergo transesophageal echocardiogram yesterday. There is no evidence of vegetation on any of the valves. There was noted severe aortic stenosis with moderate to severe mitral regurgitation and moderate to severe pulmonary hypertension. Today she denies any worsening shortness of breath. She is maintaining good O2 saturations in the mid 90s on 2 L/m per nasal cannula. She's been hemodynamically stable. She remains on cefazolin. Bicarb remains low at 18. She remains on sodium bicarbonate tablets. She remains in a negative balance. Creatinine improved to 1.50. Her hemoglobin is drifting down currently at 7.2. The patient is seen again today 08/19/2016 in follow-up on the regular medical floor. She is continuing to maintain O2 saturations in the 90s on 2 L/m. Nasal cannula. She is currently afebrile. No leukocytosis. Hemoglobin stable at 7.4. Bicarb is improved slightly at 20. Creatinine has recovered to 0.85. She did have a biopsy of the left shoulder results of which are pending. She still has significant discomfort in that shoulder. The patient was seen again today 08/21/2016 as she was now being transferred to the intensive care unit. She had developed recurrent GI bleeding. She had black tarry stools last night and a drop in her hemoglobin to 6.8. A repeat hemoglobin was 7.1 and then later today he was back to 6.3. She did have a previous reaction to a blood transfusion earlier this admission as well. Also noted was her INR 4.4. She did receive some vitamin K and it is currently 2.4. GI services and surgical services have been involved with her as well. Currently, she is seen resting fairly comfortable in bed. She is somewhat anxious due to her situation but denies any worsening shortness of breath, cough or congestion. No chest pain, no lightheadedness or dizziness. She is maintaining O2 saturations at 100% on 2 L/m per nasal cannula. She remains hemodynamically stable. Not requiring any pressor support. The patient is seen again today 08/22/2016 in the intensive care unit. She is awake and alert in no acute distress. She did receive a unit of transfer views packed red blood cells and her current hemoglobin is 8.4. INR 1.4. GI services are on the case and are she has not had any further black tarry stools considering EGD. The patient has continued to decline a colonoscopy. She has not had any further black tarry stools or hematoemesis. She continues on Protonix IV. Aspirate of the left shoulder did come back positive for methicillin sensitive Staphylococcus aureus in her blood cultures were also positive for MSSA. She has been maintained on cefazolin. She remains hemodynamically stable. She is maintaining good O2 saturations at 96% on room air. She is afebrile. Current creatinine 1.10. On 08/23/2016 the patient is on the medical floor. She is doing well. No specific complaints. No episodes of any GI bleeding. No fever or chills. No signs of septicemia. Still on IV cefazolin regarding MSSA bacteremia and possible osteomyelitis. No change in mental status. Hemoglobin is stable at 8.1. No nausea or vomiting. Tolerating diet. Objective - Vital Signs Vital signs: Vital Signs Temp 98.1 F 08/23/16 08:00 Pulse 60 08/23/16 08:00 Resp 16 08/23/16 08:00 BP 126/57 08/23/16 08:00 Pulse Ox 95 08/23/16 08:00 Intake & Output 08/22/16 08/23/16 08/23/16 18:59 06:59 18:59 Intake Total 1330 Output Total 1015 750 Balance 315 -750 Intake: IV 240 0.9 240 Intake, IV Titration 250 Amount Dextrose 5% in Water 1, 150 000 ml @ 50 mls/hr IV . Q20H [facility] Rx#:[id number] ceFAZolin 2 gm In Sodium 100 Chloride 0.9% 100 ml @ 100 mls/hr IVPB Q8HR [facility] Rx#:[id number] Oral 840 Output: Urine 415 750 Stool 600 Other: Voiding Method Indwelling Catheter Indwelling Catheter Indwelling Catheter - Exam Head exam was generally normal. There was no scleral icterus or corneal arcus. Mucous membranes were moist.Neck was supple and without jugular venous distension, thyromegaly, or carotid bruits. Carotids were easily palpable bilaterally. There was no adenopathy. Lung sounds are diminished bilaterally especially lung bases. Heart sounds are regular, positive S1-S2 and the patient is a systolic ejection murmur grade 3/6 heard throughout the precordium more so in the left apex. Abdomen is soft. Bowel sounds are present. No direct tenderness, rebound tensile guarding. Scars are present in the right upper quadrant and mid abdomen is also umbilicus.Examination of the extremities revealed easily palpable radial, femoral and pedal pulses. There was no cyanosis , clubbing or edema. - Labs CBC & Chem 7: 08/23/16 06:09 08/22/16 05:30 Labs: Abnormal Lab Results - Last 24 Hours (Table) 08/21/16 08/22/16 08/22/16 Range/Units 06:42 18:20 21:14 WBC (3.8-10.6) k/uL RBC (3.80-5.40) m/uL Hgb (11.4-16.0) gm/dL Hct (34.0-46.0) % MCHC (31.0-37.0) g/dL Plt Count (150-450) k/uL Neutrophils # (1.3-7.7) k/uL POC Glucose (mg/dL) 115 H 103 H (75-99) mg/dL Stool Occult Blood (Negative) Crossmatch See Detail 08/23/16 08/23/16 08/23/16 Range/Units 03:40 05:55 06:09 WBC 10.8 H (3.8-10.6) k/uL RBC 3.05 L (3.80-5.40) m/uL Hgb 8.1 L (11.4-16.0) gm/dL Hct 28.6 L (34.0-46.0) % MCHC 28.2 L (31.0-37.0) g/dL Plt Count 606 H (150-450) k/uL Neutrophils # 8.3 H (1.3-7.7) k/uL POC Glucose (mg/dL) 155 H (75-99) mg/dL Stool Occult Blood Positive H (Negative) Crossmatch 08/23/16 Range/Units 12:04 WBC (3.8-10.6) k/uL RBC (3.80-5.40) m/uL Hgb (11.4-16.0) gm/dL Hct (34.0-46.0) % MCHC (31.0-37.0) g/dL Plt Count (150-450) k/uL Neutrophils # (1.3-7.7) k/uL POC Glucose (mg/dL) 217 H (75-99) mg/dL Stool Occult Blood (Negative) Crossmatch Microbiology - Last 24 Hours (Table) 08/18/16 14:40 Anaerobic Culture - Final Aspirate Staphylococcus aureus Assessment and Plan Plan: Assessment 1 acute non-ST segment elevation myocardial infarction with an underlying coronary artery disease and previous bypass surgery, currently free of any chest pain 2 hypotension most likely secondary to underlying staph septicemia, currently off pressors, recovered 3 staph aureus septicemia, MSSA. The exact source is not clear. No evidence of pneumonia. No urinary source of infection. Endocarditis is less likely. 4 moderate degree of aortic stenosis 5 CHF with diastolic dysfunction and ejection fraction of 55-60% 6 diabetes mellitus type 2 7 hypertension 8 hyperlipidemia 9 previous history of syncope and fall with a fractured left humerus 10 chronic anemia with previous blood transfusions 11 right bundle branch block pattern on EKG 12 acute renal failure with an acute kidney injury, improving 13 episodes of dysphagia 14 history of small bowel obstruction related to a benign lesion that was surgically resected 15 osteoarthritis 16 osteoarthritis 17 left humerus fracture/infection, please refer to the previous evaluations and the CAT scan is done. 18 non-anion gap metabolic acidosis, recovered Plan Continue IV cefazolin. Monitor hemoglobin. ID evaluation. Watch for any signs of GI bleeding. Hemoglobin is stable. No signs of septicemia. Monitor coagulation based on recurrent GI bleeds. We'll follow.
[2016-08-23 16:49] LABS: Glucose,Whole Blood 247 mg/dL (75-99)
[2016-08-23] MEDS: ONDANSETRON 4 MG/2 ML VIAL IVP PRN (21:06)
[2016-08-23] MEDS: ATORVASTATIN 40 MG TAB PO SCH (21:07)
[2016-08-23] MEDS: CHOLECALCIFEROL 1,000 UNIT TAB PO SCH (21:07)
[2016-08-23] MEDS: DONEPEZIL 10 MG TAB PO SCH (21:08)
[2016-08-23] MEDS: SERTRALINE 100 MG TAB PO SCH (21:08)
[2016-08-23] MEDS: MULTIVITAMINS, THERA 1 EACH TAB PO SCH (21:08)
[2016-08-23] MEDS: FENOFIBRATE 160 MG TAB PO SCH (21:08)
[2016-08-23 21:43] LABS: Glucose,Whole Blood 142 mg/dL (75-99)
[2016-08-24] MEDS: HYDROmorphone 1 MG/ML 1 ML SYRINGE IVP PRN ×2 (00:16→20:37)
[2016-08-24] MEDS: INSULIN LISPRO (humaLOG) 300 UNIT/3 ML VIAL SQ SCH ×4 (06:40→21:46)
[2016-08-24] MEDS: DEXTROSE 5% IN WATER 1,000 ML IV SCH ×3 (06:40→10:18)
[2016-08-24 06:41] LABS: Glucose,Whole Blood 155 mg/dL (75-99)
[2016-08-24 06:49] LABS: CH 26.7; CHCM 28.4; HCT 29.5 % (34.0-46.0); HDW 3.59; HGB 8.4 gm/dL (11.4-16.0); Hypochromasia Marked; Immature Gran Flag Slight; MCH 26.7 pg (25.0-35.0); MCHC 28.4 g/dL (31.0-37.0); MCV 94.3 fL (80.0-100.0); Mean Platelet Volume 7.4; Poikilocytosis Slight; RBC 3.13 m/uL (3.80-5.40); RDW 15.6 % (11.5-15.5); WBC 11.2 k/uL (3.8-10.6); WBC (Perox) 11.77
[2016-08-24 07:41] LABS: Manual Review Performed; Toxic Granulation Present; Toxic Vacuolation Present
[2016-08-24 07:42] LABS: Add Differential Manual Differential
[2016-08-24 07:45] LABS: Myelocytes % 1.5 %; Nucleated Red Blood Cells 0 /100 WBC (0-0); Total Cells Counted 200
--- NOTE | 2016-08-24 07:51 | PN ---
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 INTERVAL HISTORY: The patient is afebrile. Has been breathing comfortably. Denies significant chest pain or cough. No abdominal pain or any diarrhea. On examination, blood pressure is 121/57 with a pulse of 86, temperature of 97. She is 96% on 2 L nasal cannula. General description is an elderly female, lying in bed in no distress. RESPIRATORY SYSTEM: Unlabored breath, clear to auscultation anteriorly. HEART: S1, S2, regular rate and rhythm. ABDOMEN: Soft, no tenderness. LABS: Hemoglobin is 8. 1 with a white count of 10.8. INR is 1.4. DIAGNOSTIC IMPRESSION AND PLAN: Patient with methicillin-susceptible Staphylococcus aureus bacteremia. Source is left humerus osteo with a culture at the same site. Culture was positive from the skin. Followup blood culture has been negative. PLAN: Continue patient's cefazolin 2 gm q.8h. for the baseline treatment and outpatient IV antibiotic therapy. Continue supportive care.
[2016-08-24 08:02] LABS: Potassium 4.5 mmol/L (3.5-5.1); Total Bilirubin 0.5 mg/dL (0.2-1.3); Total Protein 5.3 g/dL (6.3-8.2)
[2016-08-24] MEDS ORDERED: FUROSEMIDE 10 MG/ML 2 ML VIAL IV ONE (08:39)
--- NOTE | 2016-08-24 08:42 | P.PN ---
Subjective Patient is seen in follow-up for acute kidney injury. Her baseline creatinine is 1 and peaked at 2.29 this admission. It came down to 0.95 and is a little worse at 1.17 today. 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 There was concern for endocarditis and she underwent a CLARIBEL which revealed no vegetations however she does have severe aortic stenosis, moderate to severe mitral regurgitation and pulmonary hypertension. She is nonoliguric. Hemoglobin was down to 6.3 this admission for which she did receive blood transfusion. Hemoglobin is 8.4 today. She has been refusing a colonoscopy but there are potential plans of doing an EGD this admission. She is complaining of dyspnea this morning. No active bleeding. Vital signs are stable. General: The patient appeared well nourished and normally developed. HEENT: Head exam is unremarkable. Neck is without jugular venous distension. LUNGS: Lungs are clear to auscultation and percussion. Breath sounds decreased. HEART: Rate and Rhythm are regular. First and second heart sounds normal. No murmurs, rubs or gallops. ABDOMEN: Abdominal exam reveals normal bowel sounds. Non-tender and non- distended. No evidence of peritonitis. EXTREMITITES: No clubbing, cyanosis, or edema. Objective - Vital Signs Vital signs: Vital Signs Temp 97.0 F L 08/23/16 20:00 Pulse 50 L 08/24/16 04:00 Resp 16 08/24/16 04:00 BP 99/42 08/24/16 04:00 Pulse Ox 100 08/24/16 04:00 Intake & Output 08/23/16 08/24/16 08/24/16 18:59 06:59 18:59 Intake Total 360 Output Total 150 Balance 210 Weight 79 kg Intake: Oral 360 Output: Urine 150 Other: Voiding Method Indwelling Catheter Indwelling Catheter # Voids 1 # Bowel Movements 3 1 - Labs CBC & Chem 7: 08/24/16 06:14 08/24/16 06:14 Labs: Abnormal Lab Results - Last 24 Hours (Table) 08/23/16 08/23/16 08/23/16 Range/Units 12:04 16:47 21:27 WBC (3.8-10.6) k/uL RBC (3.80-5.40) m/uL Hgb (11.4-16.0) gm/dL Hct (34.0-46.0) % MCHC (31.0-37.0) g/dL RDW (11.5-15.5) % Plt Count (150-450) k/uL Monocytes # (Manual) (0-1.0) k/uL BUN (7-17) mg/dL Creatinine (0.52-1.04) mg/dL Glucose (74-99) mg/dL POC Glucose (mg/dL) 217 H 247 H 142 H (75-99) mg/dL Total Protein (6.3-8.2) g/dL Albumin (3.5-5.0) g/dL 08/24/16 08/24/16 08/24/16 Range/Units 06:14 06:14 06:38 WBC 11.2 H (3.8-10.6) k/uL RBC 3.13 L (3.80-5.40) m/uL Hgb 8.4 L (11.4-16.0) gm/dL Hct 29.5 L (34.0-46.0) % MCHC 28.4 L (31.0-37.0) g/dL RDW 15.6 H (11.5-15.5) % Plt Count 465 H (150-450) k/uL Monocytes # (Manual) 1.7 H (0-1.0) k/uL BUN 53 H (7-17) mg/dL Creatinine 1.17 H (0.52-1.04) mg/dL Glucose 146 H (74-99) mg/dL POC Glucose (mg/dL) 155 H (75-99) mg/dL Total Protein 5.3 L (6.3-8.2) g/dL Albumin 2.7 L (3.5-5.0) g/dL Assessment and Plan Plan: Assessment: #1. Nonoliguric acute kidney injury secondary to ischemic ATN secondary to severe sepsis and anemia. Creatinine up to 1.17 today. Urinalysis noted to be benign. #2. Volume overload as evidenced by vascular congestion on previous chest x- ray. #3. Severe aortic stenosis and moderate to severe mitral regurgitation. #4. Moderate to severe pulmonary hypertension. #5. 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 #6. Anemia due to underlying GI bleed. Apparently she's been refusing colonoscopy. Status post blood transfusion on August 21. Hemoglobin 8.4 this morning. #7. Hypernatremia secondary to lack of oral water intake. Improved with water replacement. Plan: Continue D5W - decrease rate to 20 mL an hour. Lasix 20 mg IV once today. Check chest x-ray. Avoid nephrotoxic agents and hypotensive episodes. Repeat electrolytes in the morning. Antibiotics per infectious disease recommendations. Monitor hemoglobin and transfuse as needed. Potential EGD per GI this admission.
--- NOTE | 2016-08-24 09:46 | XR ---
EXAMINATION TYPE: XR chest 2V DATE OF EXAM: 08/24/2016 9:34 AM HISTORY: dyspnea. REFERENCE: Previous study dated 08/14/2016. FINDINGS: There has been a midline sternotomy. The heart is enlarged. There is mild vascular congestion. There are bilateral effusions. There is bib asilar airspace disease. IMPRESSION: 1. CARDIOMEGALY. 2. VASCULAR CONGESTION. 3. BILATERAL EFFUSIONS. 4. BIBASILAR AIRSPACE DISEASE. 5. PLEASE CORRELATE FOR CONGESTIVE HEART FAILURE.
[2016-08-24] MEDS: ceFAZolin 2 GM in SODIUM CHLORIDE 0.9% 100 ML IVPB SCH ×3 (10:15→23:26)
[2016-08-24] MEDS: PANTOPRAZOLE 40 MG/10 ML VIAL IVP SCH (10:16)
[2016-08-24] MEDS: DOCUSATE 100 MG CAP PO SCH (10:16)
[2016-08-24] MEDS: POLYETHYLENE GLYCOL 3350 17 GM POWD.PACK PO SCH (10:16)
[2016-08-24] MEDS: EZETIMIBE 10 MG TAB PO SCH (10:17)
[2016-08-24] MEDS: METOPROLOL TARTRATE 25 MG TAB PO SCH ×2 (10:17→20:40)
[2016-08-24] MEDS: SODIUM BICARBONATE TAB 650 MG TAB PO SCH ×2 (10:17→20:40)
[2016-08-24] MEDS: ISOSORBIDE MONONITRATE ER 30 MG TAB.ER.24H PO SCH (10:17)
--- NOTE | 2016-08-24 11:22 | P.PN ---
Subjective Principal diagnosis: Acute GI bleeding, MSSA bacteremia. 80-year-old female patient who initially presented on 08/13/2016 because of increased shortness of breath. The patient was ruled in for an acute non-ST segment elevation myocardial infarction. The patient is known to have coronary artery disease with previous bypass surgery. Other comorbid conditions include hypertension diabetes mellitus and hyperlipidemia and congestion heart failure. During this current hospitalization, the patient was also found to be septic with MRSA bacteremia, acute kidney injury secondary to acute ischemic trigger necrosis, sepsis, hypotension, pressor dependence, an acute transfusion reaction secondary to her packed RBC transfusion for which the patient was given for a low hemoglobin. The patient was also suspected to have a fracture of the left humerus. A CAT scan was done yesterday showed a comminuted fracture of the left humeral neck, and pathologic fracture was suspected with a concern of an underlying malignancy. There was soft tissue thickening in the area which could be related to edema post fracture or soft tissue mass. Note that I have seen this patient back in May 2016 for chest pain and suspected GI bleeding and back then was noted the patient sustained a fracture to her left humerus and this was being treated conservatively and she did not require any surgical intervention. The patient also is known to have history of syncope during which she did have had sustained the left humeral fracture, episodes of dysphagia, chronic anemia, small bowel obstruction related to a benign lesion of the intestine that was resected, chronic renal failure stage III kidney disease, CHF with diastolic dysfunction and ejection fraction of 55- 60%, aortic stenosis and previous coronary artery bypass surgery. On 08/17/2016 I'm seeing this patient in follow-up. The patient is resting comfortably in bed. The patient has no respiratory distress. Hemodynamically she is stable and the patient has been off dopamine for more than 12 hours. She is producing adequate amount of urine output. Her pulse ox is around 98% on 2 L of oxygen nasal cannula. She has a cardiac murmur which is related to aortic stenosis. As mentioned earlier, the patient had staph aureus Ammann MSSA and the blood, on 3 different blood cultures and the most recent blood cultures negative. For that reason, the patient was covered with cefazolin 2 g every 12 hours. Renal function is improving and creatinine is down to 1.5. Rest of the electrolytes show no major abnormalities. The patient continues to have a component of non-anion gap metabolic acidosis with a bicarb level of 18. The chest x-ray from admission showed evidence of any pneumonia. Echocardiogram from May 2016 showed a ejection fraction of 55-60% along with moderate degree of aortic stenosis. The patient is seen again today 08/18/2016 in follow-up on the regular medical floor. She is awake and alert in no acute distress. She did undergo transesophageal echocardiogram yesterday. There is no evidence of vegetation on any of the valves. There was noted severe aortic stenosis with moderate to severe mitral regurgitation and moderate to severe pulmonary hypertension. Today she denies any worsening shortness of breath. She is maintaining good O2 saturations in the mid 90s on 2 L/m per nasal cannula. She's been hemodynamically stable. She remains on cefazolin. Bicarb remains low at 18. She remains on sodium bicarbonate tablets. She remains in a negative balance. Creatinine improved to 1.50. Her hemoglobin is drifting down currently at 7.2. The patient is seen again today 08/19/2016 in follow-up on the regular medical floor. She is continuing to maintain O2 saturations in the 90s on 2 L/m. Nasal cannula. She is currently afebrile. No leukocytosis. Hemoglobin stable at 7.4. Bicarb is improved slightly at 20. Creatinine has recovered to 0.85. She did have a biopsy of the left shoulder results of which are pending. She still has significant discomfort in that shoulder. The patient was seen again today 08/21/2016 as she was now being transferred to the intensive care unit. She had developed recurrent GI bleeding. She had black tarry stools last night and a drop in her hemoglobin to 6.8. A repeat hemoglobin was 7.1 and then later today he was back to 6.3. She did have a previous reaction to a blood transfusion earlier this admission as well. Also noted was her INR 4.4. She did receive some vitamin K and it is currently 2.4. GI services and surgical services have been involved with her as well. Currently, she is seen resting fairly comfortable in bed. She is somewhat anxious due to her situation but denies any worsening shortness of breath, cough or congestion. No chest pain, no lightheadedness or dizziness. She is maintaining O2 saturations at 100% on 2 L/m per nasal cannula. She remains hemodynamically stable. Not requiring any pressor support. The patient is seen again today 08/22/2016 in the intensive care unit. She is awake and alert in no acute distress. She did receive a unit of transfer views packed red blood cells and her current hemoglobin is 8.4. INR 1.4. GI services are on the case and are she has not had any further black tarry stools considering EGD. The patient has continued to decline a colonoscopy. She has not had any further black tarry stools or hematoemesis. She continues on Protonix IV. Aspirate of the left shoulder did come back positive for methicillin sensitive Staphylococcus aureus in her blood cultures were also positive for MSSA. She has been maintained on cefazolin. She remains hemodynamically stable. She is maintaining good O2 saturations at 96% on room air. She is afebrile. Current creatinine 1.10. On 08/23/2016 the patient is on the medical floor. She is doing well. No specific complaints. No episodes of any GI bleeding. No fever or chills. No signs of septicemia. Still on IV cefazolin regarding MSSA bacteremia and possible osteomyelitis. No change in mental status. Hemoglobin is stable at 8.1. No nausea or vomiting. Tolerating diet. On 08/24/2016, patient is mostly complaining of slight nausea. No abdominal pain , no melena, no hematemesis, no evidence of GI bleeding, she is also complaining of slight shortness of breath. Remains on medications as noted for her MSSA bacteremia. Hemoglobin today is 8.4. Basic metabolic profile was reviewed, BUN is 53 creatinine is 1.17. Objective - Vital Signs Vital signs: Vital Signs Temp 96.7 F L 08/24/16 08:51 Pulse 57 L 08/24/16 08:51 Resp 20 08/24/16 08:51 BP 126/58 08/24/16 08:51 Pulse Ox 100 08/24/16 09:02 Intake & Output 08/23/16 08/24/16 08/24/16 18:59 06:59 18:59 Intake Total 360 240 Output Total 150 Balance 210 240 Weight 79 kg 79 kg Intake: Oral 360 240 Output: Urine 150 Other: Voiding Method Indwelling Catheter Indwelling Catheter Indwelling Catheter # Voids 1 # Bowel Movements 3 1 - Exam Physical Exam: Revealed an 80-year-old female in no distress. HEENT:[Neck is supple.] [No neck masses.] [No thyromegaly.] [No JVD.] Chest: [Diminished breath sounds at the bases, no crackles, no rhonchi, no wheezes.] Cardiac Exam: [Normal S1 and S2, no S3 gallop, 3/6 systolic murmur throughout the precordium] Abdomen: [Soft, nontender, no megaly, no rebound, no guarding, normal bowel sounds.] Extremities: [No clubbing, no edema, no cyanosis.] Neurological Exam: [No focal neurologic deficit.] - Labs CBC & Chem 7: 08/24/16 06:14 08/24/16 06:14 Labs: Abnormal Lab Results - Last 24 Hours (Table) 08/23/16 08/23/16 08/23/16 Range/Units 12:04 16:47 21:27 WBC (3.8-10.6) k/uL RBC (3.80-5.40) m/uL Hgb (11.4-16.0) gm/dL Hct (34.0-46.0) % MCHC (31.0-37.0) g/dL RDW (11.5-15.5) % Plt Count (150-450) k/uL Monocytes # (Manual) (0-1.0) k/uL BUN (7-17) mg/dL Creatinine (0.52-1.04) mg/dL Glucose (74-99) mg/dL POC Glucose (mg/dL) 217 H 247 H 142 H (75-99) mg/dL Total Protein (6.3-8.2) g/dL Albumin (3.5-5.0) g/dL 08/24/16 08/24/16 08/24/16 Range/Units 06:14 06:14 06:38 WBC 11.2 H (3.8-10.6) k/uL RBC 3.13 L (3.80-5.40) m/uL Hgb 8.4 L (11.4-16.0) gm/dL Hct 29.5 L (34.0-46.0) % MCHC 28.4 L (31.0-37.0) g/dL RDW 15.6 H (11.5-15.5) % Plt Count 465 H (150-450) k/uL Monocytes # (Manual) 1.7 H (0-1.0) k/uL BUN 53 H (7-17) mg/dL Creatinine 1.17 H (0.52-1.04) mg/dL Glucose 146 H (74-99) mg/dL POC Glucose (mg/dL) 155 H (75-99) mg/dL Total Protein 5.3 L (6.3-8.2) g/dL Albumin 2.7 L (3.5-5.0) g/dL Assessment and Plan Plan: 1 acute non-ST segment elevation myocardial infarction with an underlying coronary artery disease and previous bypass surgery, currently free of any chest pain 2 hypotension most likely secondary to underlying staph septicemia, currently off pressors, recovered 3 staph aureus septicemia, MSSA. The exact source is not clear. No evidence of pneumonia. No urinary source of infection. Endocarditis is less likely. 4 moderate degree of aortic stenosis 5 CHF with diastolic dysfunction and ejection fraction of 55-60% 6 diabetes mellitus type 2 7 hypertension 8 hyperlipidemia 9 previous history of syncope and fall with a fractured left humerus 10 chronic anemia with previous blood transfusions 11 right bundle branch block pattern on EKG 12 acute renal failure with an acute kidney injury, improving 13 episodes of dysphagia 14 history of small bowel obstruction related to a benign lesion that was surgically resected 15 osteoarthritis 16 osteoarthritis 17 left humerus fracture/infection, please refer to the previous evaluations and the CAT scan is done. 18 non-anion gap metabolic acidosis, recovered Recommendation: Continue present treatment plan, continue to watch for any signs of bleeding, continue to monitor hemoglobin, no signs of septicemia at this point, monitor daily hemoglobin. We'll continue to follow. Time with Patient: Less than 30
--- NOTE | 2016-08-24 12:14 | P.PN ---
Subjective This is a 80-year-old female, patient of [facility]. She has a known past medical history of myocardial infarction and three-vessel coronary artery bypass graft, coronary artery disease, hyperlipidemia, hypertension, diabetes, chronic kidney disease and dementia. Also history of anemia with recent EGD and May 2016 revealing gastritis colonoscopy was several years ago. She presents to the hospital with complaints of chest pain, abdominal pain , black stools with episodes of diarrhea. She's found have evidence of a non- ST elevated PA. Not able to be on aspirin or IV heparin at this time due to her significant anemia. Patient is found to have a UTI as well as positive blood cultures growing presumptive staph aureus. She currently on vancomycin and Rocephin. She still complaining of some abdominal pain. Also having some shortness of breath. Hemoglobin is 7.1 today she'll get receive 1 unit of blood. Creatinine has jumped up to 2.24. Nephrology will be consulted Lasix and lisinopril are on hold. 08/17/2016 patient currently in the ICU. She had a reaction to blood transfusion on Wednesday. Hemoglobin is 7.2. She is having stools. Loose but not dark and no blood present. She is still complaining of some belly pain. Left arm is in sling. She has been off of the dopamine since yesterday. She is followed by multiple consulting physicians. Continue to monitor closely. The planning on transferring her to the sixth floor this afternoon. 08/20/2016 patient still complaining of some chest pain and abdominal pain. Yesterday she was sent to the telemetry floor due to chest pain. Troponin slightly elevated 0.318 but improved since admission. Cardiology has been reconsulted. Patient reports having bowel movements, denies any nausea vomiting. Denies any difficulty with urinating. 08/24/2016 patient reports being more short of breath today. Chest x-ray did show evidence of fluid congestion and possible CHF. Nephrology ordered 1 dose of IV Lasix. Patient reports having black stools. Stool for occult blood was positive. GI following. Hemoglobin 8.4. Denies any chest pain. Denies any nausea or vomiting. Objective - Vital Signs Vital signs: Vital Signs Temp 96.7 F L 08/24/16 08:51 Pulse 57 L 08/24/16 08:51 Resp 20 08/24/16 08:51 BP 126/58 08/24/16 08:51 Pulse Ox 100 08/24/16 09:02 Intake & Output 08/23/16 08/24/16 08/24/16 18:59 06:59 18:59 Intake Total 360 240 Output Total 150 Balance 210 240 Weight 79 kg 79 kg Intake: Oral 360 240 Output: Urine 150 Other: Voiding Method Indwelling Catheter Indwelling Catheter Indwelling Catheter # Voids 1 # Bowel Movements 3 1 - Exam Head normocephalic Neck supple Lungs diminished bilaterally. Crackles at bases Heart regular rate and rhythm S1-S2, no rub or gallop positive murmur. Tenderness with palpation of chest wall Abdomen is soft nondistended positive bowel sounds diffuse abdominal tenderness Extremities no edema Neuro awake and alert eating breakfast - Labs CBC & Chem 7: 08/24/16 06:14 08/24/16 06:14 Labs: Abnormal Lab Results - Last 24 Hours (Table) 08/23/16 08/23/16 08/23/16 Range/Units 12:04 16:47 21:27 WBC (3.8-10.6) k/uL RBC (3.80-5.40) m/uL Hgb (11.4-16.0) gm/dL Hct (34.0-46.0) % MCHC (31.0-37.0) g/dL RDW (11.5-15.5) % Plt Count (150-450) k/uL Monocytes # (Manual) (0-1.0) k/uL BUN (7-17) mg/dL Creatinine (0.52-1.04) mg/dL Glucose (74-99) mg/dL POC Glucose (mg/dL) 217 H 247 H 142 H (75-99) mg/dL Total Protein (6.3-8.2) g/dL Albumin (3.5-5.0) g/dL 08/24/16 08/24/16 08/24/16 Range/Units 06:14 06:14 06:38 WBC 11.2 H (3.8-10.6) k/uL RBC 3.13 L (3.80-5.40) m/uL Hgb 8.4 L (11.4-16.0) gm/dL Hct 29.5 L (34.0-46.0) % MCHC 28.4 L (31.0-37.0) g/dL RDW 15.6 H (11.5-15.5) % Plt Count 465 H (150-450) k/uL Monocytes # (Manual) 1.7 H (0-1.0) k/uL BUN 53 H (7-17) mg/dL Creatinine 1.17 H (0.52-1.04) mg/dL Glucose 146 H (74-99) mg/dL POC Glucose (mg/dL) 155 H (75-99) mg/dL Total Protein 5.3 L (6.3-8.2) g/dL Albumin 2.7 L (3.5-5.0) g/dL Assessment and Plan Plan: #1 acute Non-ST segment elevation myocardial infarction. Evaluated by cardiology during this admission, no intervention recommended so far #2 Anemia, suspect possible GI bleed in a patient with recent EGD in May 2016, and last colonoscopy 2010. Gastroenterology following. Await their further recommendations. Hemoglobin 8.4. Stool for occult blood positive. Continue Protonix #3 sepsis and bacteremia with MSSA likely secondary to left humerus osteomyelitis. Infectious diseases recommending cefazolin for 6 weeks #4 UTI. Urine culture no growth #5 Acute exacerbation of diastolic congestive heart failure. Chest x-ray still showing fluid overload. Patient is receiving another dose of IV Lasix #6 Hyperlipidemia. #7 Diabetes mellitus. #8 essential Hypertension. #9 History of coronary artery disease with previous coronary artery bypass grafting. #10 Left upper extremity pain secondary to recent left humeral fracture. #11 Valvular heart disease with severe aortic stenosis, moderate to severe mitral regurgitation, moderate to severe pulmonary hypertension. #12 Acute kidney injury secondary to hypotension and hypoprofusion. Nephrology following # 13 coagulopathy resolved non-any anticoagulation GI prophylaxis IV Protonix. Continue SCDs I performed an examination of the patient and discussed their management with the physician Printing Sales Representative. I have reviewed the Physician Printing Sales Representative's notes and agree with the documented findings and plan of care
[2016-08-24 12:52] LABS: INR 1.5 (<1.1); Prothrombin Time 14.2 sec (9.0-12.0)
[2016-08-24] MEDS: IPRATROPIUM-ALBUTEROL 3 ML NEB INHALATION SCH ×3 (16:12→20:02)
[2016-08-24 17:15] LABS: Glucose,Whole Blood 199 mg/dL (75-99)
[2016-08-24] MEDS: CHOLECALCIFEROL 1,000 UNIT TAB PO SCH (20:39)
[2016-08-24] MEDS: ATORVASTATIN 40 MG TAB PO SCH (20:39)
[2016-08-24] MEDS: DONEPEZIL 10 MG TAB PO SCH (20:39)
[2016-08-24] MEDS: SERTRALINE 100 MG TAB PO SCH (20:40)
[2016-08-24] MEDS: FENOFIBRATE 160 MG TAB PO SCH (20:40)
[2016-08-24] MEDS: MULTIVITAMINS, THERA 1 EACH TAB PO SCH (20:40)
[2016-08-24 21:29] LABS: Glucose,Whole Blood 247 mg/dL (75-99)
[2016-08-25] MEDS: IPRATROPIUM-ALBUTEROL 3 ML NEB INHALATION SCH ×4 (07:36→18:59)
[2016-08-25 07:43] LABS: Glucose,Whole Blood 113 mg/dL (75-99)
--- NOTE | 2016-08-25 07:44 | PN ---
DATE OF SERVICE: 08/24/2016 Reason for follow-up: MSSA bacteremia secondary to left humerus osteomyelitis. INTERVAL HISTORY: The patient is afebrile. She has become nausea but no vomiting. Denies significant chest pain or cough. No abdominal pain. No diarrhea. On examination blood pressure 92/58 with a pulse of 93, temperature 97.1. She is 100% on 2 liters nasal cannula. GENERAL DESCRIPTION: Elderly female lying in bed in no distress. RESPIRATORY SYSTEM: Unlabored breathing. Clear to auscultation anteriorly. HEART: S1, S2. Regular rate and rhythm. ABDOMEN: Soft, no tenderness. LABS: Hemoglobin is 8.4, white count 11.2 with a BUN of 53, creatinine 1.17. DIAGNOSTIC IMPRESSION AND PLAN: Patient with Methicillin-susceptible Staph aureus bacteremia sepsis left humerus osteomyelitis status post drainage. I will be discussing with Ortho if the patient may benefit from for further surgical debridement of the necrotic tissue. The patient will be kept on cefazolin 2 gm q8 hours for another 6 weeks for which a PICC line will be placed. Continue supportive care. MTDD
[2016-08-25] MEDS ORDERED: LIDOCAINE 2% INJ 20 MG/ML SQ ONE (07:45)
[2016-08-25] MEDS: METOPROLOL TARTRATE 25 MG TAB PO SCH ×2 (07:46→20:36)
[2016-08-25] MEDS: ceFAZolin 2 GM in SODIUM CHLORIDE 0.9% 100 ML IVPB SCH ×3 (07:46→20:43)
[2016-08-25] MEDS: EZETIMIBE 10 MG TAB PO SCH (07:46)
[2016-08-25] MEDS: ISOSORBIDE MONONITRATE ER 30 MG TAB.ER.24H PO SCH (07:46)
[2016-08-25] MEDS: SODIUM BICARBONATE TAB 650 MG TAB PO SCH ×2 (07:46→20:37)
[2016-08-25] MEDS: DOCUSATE 100 MG CAP PO SCH (07:46)
[2016-08-25] MEDS: INSULIN LISPRO (humaLOG) 300 UNIT/3 ML VIAL SQ SCH ×4 (07:47→21:41)
[2016-08-25] MEDS: PANTOPRAZOLE 40 MG/10 ML VIAL IVP SCH (07:47)
[2016-08-25] MEDS: POLYETHYLENE GLYCOL 3350 17 GM POWD.PACK PO SCH (07:47)
[2016-08-25] MEDS: DEXTROSE 5% IN WATER 1,000 ML IV SCH (07:47)
[2016-08-25] MEDS: ONDANSETRON 4 MG/2 ML VIAL IVP PRN (08:19)
[2016-08-25 09:03] LABS: Calcium 8.8 mg/dL (8.4-10.2); Potassium 4.6 mmol/L (3.5-5.1); Total Bilirubin 0.4 mg/dL (0.2-1.3); Total Protein 5.5 g/dL (6.3-8.2)
[2016-08-25 09:06] LABS: Basophils % (A) 0 %; CH 26.9; CHCM 29.9; Eosinophils # (A) 0.2 k/uL (0-0.7); Eosinophils % (A) 2 %; HDW 3.91; HGB 8.2 gm/dL (11.4-16.0); Hypochromasia Marked; Luc # (Auto) 0.28; Luc % (Auto) 2; Lymphocytes # (A) 1.2 k/uL (1.0-4.8); Lymphocytes % (A) 11 %; MCH 27.3 pg (25.0-35.0); MCHC 30.3 g/dL (31.0-37.0); MCV 90.1 fL (80.0-100.0); Mean Platelet Volume 7.3; Monocytes # (A) 1.4 k/uL (0-1.0); Monocytes % (A) 12 %; Neutrophils # (A) 8.3 k/uL (1.3-7.7); Neutrophils % (A) 73 %; Poikilocytosis Slight; RDW 15.5 % (11.5-15.5); WBC 11.4 k/uL (3.8-10.6); WBC (Perox) 10.86
--- NOTE | 2016-08-25 10:33 | IR ---
PICC LINE PLACEMENT: HISTORY: Infection requiring long-term antibiotic therapy PROCEDURE: Ultrasound and fluoroscopic guidance of PICC line placement. COMPLICATIONS: None ANESTHESIA: 1. 1% Lidocaine locally. FINDINGS/TECHNIQUE: The procedure was explained to the patient. The risks, complications, benefits and alternatives were discussed and any questions were answered. Informed consent was obtained. The patient was placed supine on the fluoroscopic table and prepped and draped in the usual sterile [facility] ion. Utilizing a 21 gauge needle and sonographic and fluoroscopic guidance, access in the vein was achieved and there is placement of a 0.018 guidewire. The vein is patent. A 4-F sheath was placed o ormmel the guidewire. The guidewire and dilator were removed and a 4-F. PICC line was placed through th e sheath with the tip at the level of the SVC. The sheath was removed, the catheter was flushed and sutured into position. The patient was stable throughout the procedure and remained stable upon disc harge from the Department of Radiology. The vein puncture was patent under ultrasound. A rodriguez scale image was obtained to document patency of the vein punctured. All elements of the maximal barrier technique were utilized. FLUOROSCOPY TIME: 0.2 minute IMPRESSION: Successful PICC line placement under ultrasound and fluoroscopic guidance.
--- NOTE | 2016-08-25 12:02 | P.PN ---
Subjective Principal diagnosis: Upper GI bleed Patient is evaluated at bedside. Patient complains of nausea without vomiting. Complains of diffuse abdominal pain states not worse than yesterday. Reports decreased appetite. Patient had a nonbloody bowel movement this morning. Hemoglobin stable at 8.2. Afebrile. Objective - Vital Signs Vital signs: Vital Signs Temp 96.4 F L 08/25/16 10:45 Pulse 52 L 08/25/16 10:45 Resp 18 08/25/16 10:45 BP 105/51 08/25/16 10:45 Pulse Ox 98 08/25/16 10:45 Intake & Output 08/24/16 08/25/16 08/25/16 18:59 06:59 18:59 Intake Total 550 Output Total 200 Balance 550 -200 Weight 79 kg Intake: IV 160 Dextrose 5% in Water 1, 160 000 ml @ 20 mls/hr IV . Q24H [facility] Rx#:[id number] Oral 390 Output: Urine 200 Other: Voiding Method Indwelling Catheter Indwelling Catheter Indwelling Catheter # Voids 100 - Exam GENERAL: Pt awake and alert, well-nourished, and in no acute distress. LUNGS: Breath sounds diminished to auscultation bilaterally. No wheezes, rales , or rhonchi. HEART: Heart S1, S2, no S3 or S4. Regular rate and rhythm. Systolic murmur. ABDOMEN: Soft, mild diffuse tenderness, nondistended, normoactive bowel sounds. No guarding, no rebound. NEUROLOGICAL: Pt oriented x 3. - Labs CBC & Chem 7: 08/25/16 07:56 08/25/16 07:56 Labs: Abnormal Lab Results - Last 24 Hours (Table) 08/24/16 08/24/16 08/24/16 Range/Units 12:01 17:08 21:16 WBC (3.8-10.6) k/uL RBC (3.80-5.40) m/uL Hgb (11.4-16.0) gm/dL Hct (34.0-46.0) % MCHC (31.0-37.0) g/dL Plt Count (150-450) k/uL Neutrophils # (1.3-7.7) k/uL Monocytes # (0-1.0) k/uL PT 14.2 H (9.0-12.0) sec BUN (7-17) mg/dL Creatinine (0.52-1.04) mg/dL Glucose (74-99) mg/dL POC Glucose (mg/dL) 199 H 247 H (75-99) mg/dL Total Protein (6.3-8.2) g/dL Albumin (3.5-5.0) g/dL 08/25/16 08/25/16 08/25/16 Range/Units 07:17 07:56 07:56 WBC 11.4 H (3.8-10.6) k/uL RBC 3.00 L (3.80-5.40) m/uL Hgb 8.2 L (11.4-16.0) gm/dL Hct 27.0 L (34.0-46.0) % MCHC 30.3 L (31.0-37.0) g/dL Plt Count 582 H (150-450) k/uL Neutrophils # 8.3 H (1.3-7.7) k/uL Monocytes # 1.4 H (0-1.0) k/uL PT (9.0-12.0) sec BUN 55 H (7-17) mg/dL Creatinine 1.31 H (0.52-1.04) mg/dL Glucose 112 H (74-99) mg/dL POC Glucose (mg/dL) 113 H (75-99) mg/dL Total Protein 5.5 L (6.3-8.2) g/dL Albumin 2.8 L (3.5-5.0) g/dL Assessment and Plan Plan: Impression: 1. Upper GI bleed, stable. Plan: Continue diet. Continue Protonix. Continue to monitor hemoglobin and overt signs of bleeding. Patient is currently declining EGD or colonoscopy. Continue to follow with consultants and primary service. The above impression and plan have been discussed and directed by Dr. Mehta. Gracy MATA acting as scribe for Dr. Mehta.
--- NOTE | 2016-08-25 12:16 | P.PN ---
Subjective Patient is seen in follow-up for acute kidney injury. Her baseline creatinine is 1 and peaked at 2.29 this admission. It came down to 0.95 and is elevated at 1.31 today. 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 There was concern for endocarditis and she underwent a CLARIBEL which revealed no vegetations however she does have severe aortic stenosis, moderate to severe mitral regurgitation and pulmonary hypertension. She is nonoliguric. Hemoglobin was down to 6.3 this admission for which she did receive blood transfusion. Hemoglobin is 8.2 today. She has been refusing a colonoscopy/EGD. No active bleeding. Vital signs are stable. General: The patient appeared well nourished and normally developed. HEENT: Head exam is unremarkable. Neck is without jugular venous distension. LUNGS: Lungs are clear to auscultation and percussion. Breath sounds decreased. HEART: Rate and Rhythm are regular. First and second heart sounds normal. No murmurs, rubs or gallops. ABDOMEN: Abdominal exam reveals normal bowel sounds. Non-tender and non- distended. No evidence of peritonitis. EXTREMITITES: No clubbing, cyanosis, or edema. Objective - Vital Signs Vital signs: Vital Signs Temp 96.4 F L 08/25/16 10:45 Pulse 52 L 08/25/16 10:45 Resp 18 08/25/16 10:45 BP 105/51 08/25/16 10:45 Pulse Ox 98 08/25/16 10:45 Intake & Output 08/24/16 08/25/16 08/25/16 18:59 06:59 18:59 Intake Total 550 Output Total 200 Balance 550 -200 Weight 79 kg Intake: IV 160 Dextrose 5% in Water 1, 160 000 ml @ 20 mls/hr IV . Q24H [facility] Rx#:[id number] Oral 390 Output: Urine 200 Other: Voiding Method Indwelling Catheter Indwelling Catheter Indwelling Catheter # Voids 100 - Labs CBC & Chem 7: 08/25/16 07:56 08/25/16 07:56 Labs: Abnormal Lab Results - Last 24 Hours (Table) 08/24/16 08/24/16 08/24/16 Range/Units 12:01 17:08 21:16 WBC (3.8-10.6) k/uL RBC (3.80-5.40) m/uL Hgb (11.4-16.0) gm/dL Hct (34.0-46.0) % MCHC (31.0-37.0) g/dL Plt Count (150-450) k/uL Neutrophils # (1.3-7.7) k/uL Monocytes # (0-1.0) k/uL PT 14.2 H (9.0-12.0) sec BUN (7-17) mg/dL Creatinine (0.52-1.04) mg/dL Glucose (74-99) mg/dL POC Glucose (mg/dL) 199 H 247 H (75-99) mg/dL Total Protein (6.3-8.2) g/dL Albumin (3.5-5.0) g/dL 08/25/16 08/25/16 08/25/16 Range/Units 07:17 07:56 07:56 WBC 11.4 H (3.8-10.6) k/uL RBC 3.00 L (3.80-5.40) m/uL Hgb 8.2 L (11.4-16.0) gm/dL Hct 27.0 L (34.0-46.0) % MCHC 30.3 L (31.0-37.0) g/dL Plt Count 582 H (150-450) k/uL Neutrophils # 8.3 H (1.3-7.7) k/uL Monocytes # 1.4 H (0-1.0) k/uL PT (9.0-12.0) sec BUN 55 H (7-17) mg/dL Creatinine 1.31 H (0.52-1.04) mg/dL Glucose 112 H (74-99) mg/dL POC Glucose (mg/dL) 113 H (75-99) mg/dL Total Protein 5.5 L (6.3-8.2) g/dL Albumin 2.8 L (3.5-5.0) g/dL Assessment and Plan Plan: Assessment: #1. Nonoliguric acute kidney injury secondary to ischemic ATN secondary to severe sepsis and anemia. patient also received a dose of Lasix yesterday.Creatinine up to 1.31 today. Urinalysis noted to be benign. #2. Volume overload as evidenced by vascular congestion on previous chest x- ray. #3. Severe aortic stenosis and moderate to severe mitral regurgitation. #4. Moderate to severe pulmonary hypertension. #5. 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 #6. Anemia due to underlying GI bleed. Apparently she's been refusing colonoscopy. Status post blood transfusion on August 21. Hemoglobin 8.4 this morning. #7. Hypernatremia secondary to lack of oral water intake. Improved with water replacement. Plan: Hep-Lock IV fluids. Avoid nephrotoxic agents and hypotensive episodes. Repeat electrolytes in the morning. Antibiotics per infectious disease recommendations. Monitor hemoglobin and transfuse as needed. Dyspnea is improved today. May repeat a dose of Lasix if needed.
[2016-08-25 13:05] LABS: Glucose,Whole Blood 134 mg/dL (75-99)
--- NOTE | 2016-08-25 15:42 | P.PN ---
Subjective Principal diagnosis: Non ST elevation myocardial infarction, anemia 80-year-old female patient who initially presented on 08/13/2016 because of increased shortness of breath. The patient was ruled in for an acute non-ST segment elevation myocardial infarction. The patient is known to have coronary artery disease with previous bypass surgery. Other comorbid conditions include hypertension diabetes mellitus and hyperlipidemia and congestion heart failure. During this current hospitalization, the patient was also found to be septic with MRSA bacteremia, acute kidney injury secondary to acute ischemic trigger necrosis, sepsis, hypotension, pressor dependence, an acute transfusion reaction secondary to her packed RBC transfusion for which the patient was given for a low hemoglobin. The patient was also suspected to have a fracture of the left humerus. A CAT scan was done yesterday showed a comminuted fracture of the left humeral neck, and pathologic fracture was suspected with a concern of an underlying malignancy. There was soft tissue thickening in the area which could be related to edema post fracture or soft tissue mass. Note that I have seen this patient back in May 2016 for chest pain and suspected GI bleeding and back then was noted the patient sustained a fracture to her left humerus and this was being treated conservatively and she did not require any surgical intervention. The patient also is known to have history of syncope during which she did have had sustained the left humeral fracture, episodes of dysphagia, chronic anemia, small bowel obstruction related to a benign lesion of the intestine that was resected, chronic renal failure stage III kidney disease, CHF with diastolic dysfunction and ejection fraction of 55- 60%, aortic stenosis and previous coronary artery bypass surgery. On 08/17/2016 I'm seeing this patient in follow-up. The patient is resting comfortably in bed. The patient has no respiratory distress. Hemodynamically she is stable and the patient has been off dopamine for more than 12 hours. She is producing adequate amount of urine output. Her pulse ox is around 98% on 2 L of oxygen nasal cannula. She has a cardiac murmur which is related to aortic stenosis. As mentioned earlier, the patient had staph aureus Ammann MSSA and the blood, on 3 different blood cultures and the most recent blood cultures negative. For that reason, the patient was covered with cefazolin 2 g every 12 hours. Renal function is improving and creatinine is down to 1.5. Rest of the electrolytes show no major abnormalities. The patient continues to have a component of non-anion gap metabolic acidosis with a bicarb level of 18. The chest x-ray from admission showed evidence of any pneumonia. Echocardiogram from May 2016 showed a ejection fraction of 55-60% along with moderate degree of aortic stenosis. The patient is seen again today 08/18/2016 in follow-up on the regular medical floor. She is awake and alert in no acute distress. She did undergo transesophageal echocardiogram yesterday. There is no evidence of vegetation on any of the valves. There was noted severe aortic stenosis with moderate to severe mitral regurgitation and moderate to severe pulmonary hypertension. Today she denies any worsening shortness of breath. She is maintaining good O2 saturations in the mid 90s on 2 L/m per nasal cannula. She's been hemodynamically stable. She remains on cefazolin. Bicarb remains low at 18. She remains on sodium bicarbonate tablets. She remains in a negative balance. Creatinine improved to 1.50. Her hemoglobin is drifting down currently at 7.2. The patient is seen again today 08/19/2016 in follow-up on the regular medical floor. She is continuing to maintain O2 saturations in the 90s on 2 L/m. Nasal cannula. She is currently afebrile. No leukocytosis. Hemoglobin stable at 7.4. Bicarb is improved slightly at 20. Creatinine has recovered to 0.85. She did have a biopsy of the left shoulder results of which are pending. She still has significant discomfort in that shoulder. The patient was seen again today 08/21/2016 as she was now being transferred to the intensive care unit. She had developed recurrent GI bleeding. She had black tarry stools last night and a drop in her hemoglobin to 6.8. A repeat hemoglobin was 7.1 and then later today he was back to 6.3. She did have a previous reaction to a blood transfusion earlier this admission as well. Also noted was her INR 4.4. She did receive some vitamin K and it is currently 2.4. GI services and surgical services have been involved with her as well. Currently, she is seen resting fairly comfortable in bed. She is somewhat anxious due to her situation but denies any worsening shortness of breath, cough or congestion. No chest pain, no lightheadedness or dizziness. She is maintaining O2 saturations at 100% on 2 L/m per nasal cannula. She remains hemodynamically stable. Not requiring any pressor support. The patient is seen again today 08/22/2016 in the intensive care unit. She is awake and alert in no acute distress. She did receive a unit of transfer views packed red blood cells and her current hemoglobin is 8.4. INR 1.4. GI services are on the case and are she has not had any further black tarry stools considering EGD. The patient has continued to decline a colonoscopy. She has not had any further black tarry stools or hematoemesis. She continues on Protonix IV. Aspirate of the left shoulder did come back positive for methicillin sensitive Staphylococcus aureus in her blood cultures were also positive for MSSA. She has been maintained on cefazolin. She remains hemodynamically stable. She is maintaining good O2 saturations at 96% on room air. She is afebrile. Current creatinine 1.10. On 08/23/2016 the patient is on the medical floor. She is doing well. No specific complaints. No episodes of any GI bleeding. No fever or chills. No signs of septicemia. Still on IV cefazolin regarding MSSA bacteremia and possible osteomyelitis. No change in mental status. Hemoglobin is stable at 8.1. No nausea or vomiting. Tolerating diet. On 08/24/2016, patient is mostly complaining of slight nausea. No abdominal pain , no melena, no hematemesis, no evidence of GI bleeding, she is also complaining of slight shortness of breath. Remains on medications as noted for her MSSA bacteremia. Hemoglobin today is 8.4. Basic metabolic profile was reviewed, BUN is 53 creatinine is 1.17. The patient is seen again today 08/25/2016 in follow-up on the regular medical floor. She is awake and alert in no acute distress. She remains quite weak and mainly in bed at this point. She is maintaining good O2 saturations in the upper 90s on room air. She is afebrile. No further active bleeding documented. Current hemoglobin 8.2. White count 11.4. Creatinine 1.31. She remains on cefazolin for her MSSA and both the blood and the bone aspirate. Objective - Vital Signs Vital signs: Vital Signs Temp 96.3 F L 08/25/16 14:55 Pulse 55 L 08/25/16 14:55 Resp 18 08/25/16 14:55 BP 96/50 08/25/16 14:55 Pulse Ox 99 08/25/16 14:55 Intake & Output 08/24/16 08/25/16 08/25/16 18:59 06:59 18:59 Intake Total 550 Output Total 200 250 Balance 550 -200 -250 Weight 79 kg Intake: IV 160 Dextrose 5% in Water 1, 160 000 ml @ 20 mls/hr IV . Q24H [facility] Rx#:[id number] Oral 390 Output: Urine 200 250 Other: Voiding Method Indwelling Catheter Indwelling Catheter Indwelling Catheter # Voids 100 - Exam GENERAL EXAM: Weak, pale. EYES: Normal reaction of pupils, equal size. NOSE: Clear with pink turbinates. THROAT: No erythema or exudates. NECK: No masses, no JVD. CHEST: No chest wall deformity. LUNGS: Equal air entry with crackles in the posterior bases more so on the left. CVS: S1 and S2 normal with an audible murmur, regular rhythm. ABDOMEN: No hepatosplenomegaly, normal bowel sounds, no guarding or rigidity. Extremities: There is 1+ peripheral edema. No clubbing, no cyanosis. Peripheral pulses are intact. - Labs CBC & Chem 7: 08/25/16 07:56 08/25/16 07:56 Labs: Abnormal Lab Results - Last 24 Hours (Table) 08/24/16 08/24/16 08/25/16 Range/Units 17:08 21:16 07:17 WBC (3.8-10.6) k/uL RBC (3.80-5.40) m/uL Hgb (11.4-16.0) gm/dL Hct (34.0-46.0) % MCHC (31.0-37.0) g/dL Plt Count (150-450) k/uL Neutrophils # (1.3-7.7) k/uL Monocytes # (0-1.0) k/uL BUN (7-17) mg/dL Creatinine (0.52-1.04) mg/dL Glucose (74-99) mg/dL POC Glucose (mg/dL) 199 H 247 H 113 H (75-99) mg/dL Total Protein (6.3-8.2) g/dL Albumin (3.5-5.0) g/dL 08/25/16 08/25/16 08/25/16 Range/Units 07:56 07:56 12:53 WBC 11.4 H (3.8-10.6) k/uL RBC 3.00 L (3.80-5.40) m/uL Hgb 8.2 L (11.4-16.0) gm/dL Hct 27.0 L (34.0-46.0) % MCHC 30.3 L (31.0-37.0) g/dL Plt Count 582 H (150-450) k/uL Neutrophils # 8.3 H (1.3-7.7) k/uL Monocytes # 1.4 H (0-1.0) k/uL BUN 55 H (7-17) mg/dL Creatinine 1.31 H (0.52-1.04) mg/dL Glucose 112 H (74-99) mg/dL POC Glucose (mg/dL) 134 H (75-99) mg/dL Total Protein 5.5 L (6.3-8.2) g/dL Albumin 2.8 L (3.5-5.0) g/dL Assessment and Plan Plan: Impression: #1 Non-ST segment elevation myocardial infarction. #2 Anemia, with recurrent bleeding. Status post 2 units of red blood cells. Current hemoglobin 8.2. GI services are on the case. #3 Sepsis secondary to Methicillin Sensitive Staphylococcus aureus. #4 Febrile illness secondary to above and suspected urinary tract infection as well. #5 Acute exacerbation of diastolic congestive heart failure. #6 Hyperlipidemia. #7 Diabetes mellitus. #8 Hypertension. #9 History of coronary artery disease with previous coronary artery bypass grafting. #10 Left upper extremity pain secondary to recent left humeral fracture. Aspirate is positive for MSSA. #11 Valvular heart disease with severe aortic stenosis, moderate to severe mitral regurgitation, moderate to severe pulmonary hypertension. #12 Acute kidney injury secondary to hypotension/hypo-profusion. Current creatinine 1.31. #13 Poor overall functional performance based on the above-mentioned multiple comorbidities. Plan: The patient was seen and evaluated by Dr. Hardy. She is currently stable from the pulmonary standpoint. She did have a PICC line placed today. She remains on cefazolin. She remains on sodium bicarbonate as well. Continue to monitor.
[2016-08-25] MEDS ORDERED: FUROSEMIDE 10 MG/ML 4 ML VIAL IV STA (16:56)
[2016-08-25 17:44] LABS: Glucose,Whole Blood 182 mg/dL (75-99)
--- NOTE | 2016-08-25 17:50 | XR ---
EXAMINATION TYPE: XR chest 1V portable DATE OF EXAM: 08/25/2016 5:18 PM COMPARISON: NONE HISTORY: Short of breath TECHNIQUE: Single frontal view of the chest is obtained. FINDINGS: There is pulmonary edema. Heart is enlarged. There are sternal wires. There is old left hu merus fracture noted. There is blunting of costophrenic angles. IMPRESSION: Congestive heart failure with pleural effusions and pulmonary edema. No change compared to yesterday.
--- NOTE | 2016-08-25 19:27 | P.PN ---
Subjective This is a 80-year-old female, patient of [facility]. She has a known past medical history of myocardial infarction and three-vessel coronary artery bypass graft, coronary artery disease, hyperlipidemia, hypertension, diabetes, chronic kidney disease and dementia. Also history of anemia with recent EGD and May 2016 revealing gastritis colonoscopy was several years ago. She presents to the hospital with complaints of chest pain, abdominal pain , black stools with episodes of diarrhea. She's found have evidence of a non- ST elevated FL. Not able to be on aspirin or IV heparin at this time due to her significant anemia. Patient is found to have a UTI as well as positive blood cultures growing presumptive staph aureus. Patient was reevaluated again on 08/19/2016 Today patient is complaining of chest pain, she will be transferred back to telemetry floor, order stool restart IV heparin and to reconsult cardiology were initiated Patient reevaluated on 08/20/2016 see note by Melyssa GARLAND Patient was evaluated on 08/21/2016 Hgb down to 6.8 patient having shortness of breath she was transferred back to ICU Objective - Vital Signs Vital signs: Vital Signs Temp 96.3 F L 08/25/16 14:55 Pulse 62 08/25/16 19:07 Resp 18 08/25/16 15:16 BP 96/50 08/25/16 14:55 Pulse Ox 99 08/25/16 14:55 Intake & Output 08/25/16 08/25/16 08/26/16 06:59 18:59 06:59 Output Total 200 250 Balance -200 -250 Output: Urine 200 250 Other: Voiding Method Indwelling Catheter Indwelling Catheter # Voids 100 - Exam In general patient is alert and oriented 3 in no apparent distress HEENT head normocephalic and atraumatic Neck is supple no JVD no goiter no lymphadenopathy Chest exam reveals a few scattered rhonchi no wheezing Cardiac exam reveals regular heart sounds S1 and S2 with mild tachycardia no gallops no murmurs Abdomen is soft nontender no organomegaly Extremity exam reveals no edema no cyanosis or clubbing - Labs CBC & Chem 7: 08/25/16 07:56 08/25/16 07:56 Labs: Abnormal Lab Results - Last 24 Hours (Table) 08/24/16 08/25/16 08/25/16 Range/Units 21:16 07:17 07:56 WBC 11.4 H (3.8-10.6) k/uL RBC 3.00 L (3.80-5.40) m/uL Hgb 8.2 L (11.4-16.0) gm/dL Hct 27.0 L (34.0-46.0) % MCHC 30.3 L (31.0-37.0) g/dL Plt Count 582 H (150-450) k/uL Neutrophils # 8.3 H (1.3-7.7) k/uL Monocytes # 1.4 H (0-1.0) k/uL BUN (7-17) mg/dL Creatinine (0.52-1.04) mg/dL Glucose (74-99) mg/dL POC Glucose (mg/dL) 247 H 113 H (75-99) mg/dL Total Protein (6.3-8.2) g/dL Albumin (3.5-5.0) g/dL 08/25/16 08/25/16 08/25/16 Range/Units 07:56 12:53 17:33 WBC (3.8-10.6) k/uL RBC (3.80-5.40) m/uL Hgb (11.4-16.0) gm/dL Hct (34.0-46.0) % MCHC (31.0-37.0) g/dL Plt Count (150-450) k/uL Neutrophils # (1.3-7.7) k/uL Monocytes # (0-1.0) k/uL BUN 55 H (7-17) mg/dL Creatinine 1.31 H (0.52-1.04) mg/dL Glucose 112 H (74-99) mg/dL POC Glucose (mg/dL) 134 H 182 H (75-99) mg/dL Total Protein 5.5 L (6.3-8.2) g/dL Albumin 2.8 L (3.5-5.0) g/dL Assessment and Plan Plan: #1 Non-ST segment elevation myocardial infarction. Evaluated by cardiology during this admission, no intervention recommended so far #2 Anemia, suspect possible GI bleed in a patient with recent EGD in May 2016, and last colonoscopy 2010. Gastroenterology following, will proceed with colonoscopy when general medical condition improves. HGB 8.1 today #3 Sepsis, blood culture positive for Staphylococcus aureus. Currently maintained on IV Cefazolin #4 Febrile illness secondary to above and suspected urinary tract infection as well. #5 Acute exacerbation of diastolic congestive heart failure. #6 Hyperlipidemia. #7 Diabetes mellitus. #8 Hypertension. #9 History of coronary artery disease with previous coronary artery bypass grafting. #10 Left upper extremity pain secondary to recent left humeral fracture. #11 Valvular heart disease with severe aortic stenosis, moderate to severe mitral regurgitation, moderate to severe pulmonary hypertension. #12 Acute kidney injury secondary to hypotension and hypoprofusion improved cr 1.1 yesterday , will recheck labs in am # 13 Elevated INR not on any anticoagulation Dr Song following
[2016-08-25] MEDS: CHOLECALCIFEROL 1,000 UNIT TAB PO SCH (20:35)
[2016-08-25] MEDS: FENOFIBRATE 160 MG TAB PO SCH (20:36)
[2016-08-25] MEDS: DONEPEZIL 10 MG TAB PO SCH (20:36)
[2016-08-25] MEDS: ATORVASTATIN 40 MG TAB PO SCH (20:36)
[2016-08-25] MEDS: SERTRALINE 100 MG TAB PO SCH (20:37)
[2016-08-25] MEDS: MULTIVITAMINS, THERA 1 EACH TAB PO SCH (20:37)
[2016-08-25] MEDS: FUROSEMIDE 10 MG/ML 4 ML VIAL IV SCH (20:43)
[2016-08-25 21:34] LABS: Glucose,Whole Blood 135 mg/dL (75-99)
[2016-08-26] MEDS: HYDROmorphone 1 MG/ML 1 ML SYRINGE IVP PRN ×2 (01:48→14:54)
--- NOTE | 2016-08-26 07:18 | PN ---
DATE OF SERVICE: 08/25/2016 Reason for follow up is MSSA bacteremia site of the left humerus and osteomyelitis. INTERVAL HISTORY: The patient is afebrile. Has been breathing comfortably. Denies significant chest pain. Some nausea. No vomiting and no diarrhea. On examination, blood pressure is 96/50 with a pulse of 55, temperature 96.3. She is 90% on 2 liters nasal cannula chem. General description is an elderly female lying in bed in no distress. RESPIRATORY SYSTEM: Unlabored breathing. Clear to auscultation anteriorly. HEART: S1, S2. Regular rate and rhythm. ABDOMEN: Soft. No tenderness. LABS: Hemoglobin 8.2. White count 11.4 with BUN of 55 and creatinine 1.31. DIAGNOSTIC IMPRESSION AND PLAN: Patient with Methicillin-sensitive Staphylococcus aureus bacteremia secondary to the left humerus osteo. Patient on cefazolin and that will be continued for 6 to 8 week course with close patient follow up. Continue supportive care. MTDD
[2016-08-26 07:28] LABS: Glucose,Whole Blood 125 mg/dL (75-99)
[2016-08-26] MEDS: INSULIN LISPRO (humaLOG) 300 UNIT/3 ML VIAL SQ SCH ×4 (08:00→22:04)
[2016-08-26] MEDS: ONDANSETRON 4 MG/2 ML VIAL IVP PRN ×2 (08:09→17:45)
[2016-08-26] MEDS: ceFAZolin 2 GM in SODIUM CHLORIDE 0.9% 100 ML IVPB SCH ×2 (08:10→22:00)
--- NOTE | 2016-08-26 09:14 | IR ---
EXAMINATION TYPE: IR fluoroscopic guided FNA left humeral lesion DATE OF EXAM: 08/20/2016 12:30 PM COMPARISON: CT 08/16/2016 HISTORY: Left humeral lesion. Procedure discussed with the patient risk applications benefits and alternatives were discussed. Any questions answered. Informed consent obtained. Patient placed supine on the fluoroscopic table and pr epped and draped in usual sterile fashion. All elements of maximal barrier technique and clin tech nique utilized. 3 passes were made into the left humeral lesion. Fluid was aspirated and sent for requested laborator y analysis. Samples were also given the for pathology and cytologic analysis. Patient stable throughout procedure. IMPRESSION: 1. Successful fluoroscopically guided FNA left humeral lesion.
[2016-08-26] MEDS: IPRATROPIUM-ALBUTEROL 3 ML NEB INHALATION SCH ×4 (09:27→20:13)
[2016-08-26] MEDS: EZETIMIBE 10 MG TAB PO SCH (09:45)
[2016-08-26] MEDS: FUROSEMIDE 10 MG/ML 4 ML VIAL IV SCH ×2 (09:45→22:00)
[2016-08-26] MEDS: METOPROLOL TARTRATE 25 MG TAB PO SCH ×2 (09:45→21:59)
[2016-08-26] MEDS: PANTOPRAZOLE 40 MG TABLET PO SCH (09:45)
[2016-08-26] MEDS: SODIUM BICARBONATE TAB 650 MG TAB PO SCH ×2 (09:45→22:00)
[2016-08-26] MEDS: DOCUSATE 100 MG CAP PO SCH (09:45)
[2016-08-26] MEDS: ISOSORBIDE MONONITRATE ER 30 MG TAB.ER.24H PO SCH (09:45)
[2016-08-26] MEDS: POLYETHYLENE GLYCOL 3350 17 GM POWD.PACK PO SCH (09:45)
--- NOTE | 2016-08-26 10:00 | P.PN ---
Subjective Principal diagnosis: Anemia sepsis bacteremia 80-year-old female admitted with acute non-ST elevated UT with chest pain and elevated troponins with abdominal pain, MSSA bacteremia site of the left humerus and osteomyelitis, anemia with subsequent GI bleed melanotic stool. Nursing reports Yordy bowel movement yesterday. She is anxious this morning reporting some difficulty breathing with shoulder discomfort. Intermittent nausea. Appetite poor. Hemoglobin 8.2 yesterday. PICC line placed yesterday. EGD colonoscopy was discussed over the past week in regards to workup of her anemia however on 2 occasions she has declined. Colonoscopy planned once she was medically optimized. Objective - Vital Signs Vital signs: Vital Signs Temp 96.5 F L 08/26/16 07:00 Pulse 52 L 08/26/16 09:27 Resp 16 08/26/16 07:00 BP 137/65 08/26/16 07:00 Pulse Ox 99 08/26/16 07:00 Intake & Output 08/25/16 08/26/16 08/26/16 18:59 06:59 18:59 Intake Total 40 Output Total 250 2100 Balance - Intake: Oral 40 Output: Urine 250 2100 Other: Voiding Method Indwelling Catheter Indwelling Catheter - Exam General appearance: The patient is alert, no acute distress anxious. HET: Head is normocephalic and atraumatic. Pupils are equal and reactive. Oropharynx is clear without lesions. Neck: Supple without lymphadenopathy. Trachea midline. Heart: S1 S2. Regular rate and rhythm. Lungs: Mr. bases bilaterally. Abdomen: Soft, mildly bloated with diffuse mild tenderness across mid abdomen with bowel sounds. No peritoneal signs. No palpable organomegaly or masses. Extremities: Left arm sling. PICC line without erythema or drainage. Neurological: No focal deficits. Strength and sensation are grossly intact. - Labs CBC & Chem 7: 08/25/16 07:56 08/25/16 07:56 Labs: Abnormal Lab Results - Last 24 Hours (Table) 08/25/16 08/25/16 08/25/16 Range/Units 12:53 17:33 21:28 POC Glucose (mg/dL) 134 H 182 H 135 H (75-99) mg/dL 08/26/16 Range/Units 07:09 POC Glucose (mg/dL) 125 H (75-99) mg/dL Assessment and Plan Plan: 1. Normocytic hypochromic iron deficiency anemia component of acute blood loss secondary to acute GI bleed with melena. 2. History of recent GI bleed anemia status post EGD May 2016 with findings of mild diffuse gastritis. Colonoscopy 2011 polypectomy. Patient refusing EGD colonoscopy at this time. Source of melanotic stool could be small bowel pathology. 3. Bacteremia with Staphylococcus aureus blood cultures. Status post CLARIBEL. 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 4. Status post fall 3 months ago FNA left humerus bone no evidence of carcinoma. 5. Non-ST elevated UT. 6. Congestive heart failure. Plan: 1. Discharge planning to ECF. Continue supportive measures and GI prophylaxis. Consideration for capsule endoscopy can be contingent based on clinical course. Presently no active bleeding hemoglobin stable. We'll follow as needed. Please notify service for additional questions or concerns. Assessment and plan of care discussed with Dr. Goldberg
[2016-08-26] MEDS: ALPRAZolam 0.25 MG TAB PO PRN ×2 (10:32→17:45)
--- NOTE | 2016-08-26 10:56 | P.PN ---
Subjective Patient is seen in follow-up for acute kidney injury. Her baseline creatinine is 1 and peaked at 2.29 this admission. It came down to 0.95 and was elevated at 1.31 yesterday. 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 There was concern for endocarditis and she underwent a CLARIBEL which revealed no vegetations however she does have severe aortic stenosis, moderate to severe mitral regurgitation and pulmonary hypertension. She is nonoliguric. Hemoglobin was down to 6.3 this admission for which she did receive blood transfusion. Hemoglobin 8.2 as of yesterday. She has been refusing a colonoscopy/EGD. No active bleeding. She does admit to dyspnea and she did receive IV Lasix yesterday. Vital signs are stable. General: The patient appeared well nourished and normally developed. HEENT: Head exam is unremarkable. Neck is without jugular venous distension. LUNGS: Lungs are clear to auscultation and percussion. Breath sounds decreased. HEART: Rate and Rhythm are regular. First and second heart sounds normal. No murmurs, rubs or gallops. ABDOMEN: Abdominal exam reveals normal bowel sounds. Non-tender and non- distended. No evidence of peritonitis. EXTREMITITES: No clubbing, cyanosis, or edema. Objective - Vital Signs Vital signs: Vital Signs Temp 96.5 F L 08/26/16 07:00 Pulse 52 L 08/26/16 09:27 Resp 16 08/26/16 07:00 BP 137/65 08/26/16 07:00 Pulse Ox 99 08/26/16 07:00 Intake & Output 08/25/16 08/26/16 08/26/16 18:59 06:59 18:59 Intake Total 40 Output Total 250 2100 Balance - Intake: Oral 40 Output: Urine 250 2100 Other: Voiding Method Indwelling Catheter Indwelling Catheter - Labs CBC & Chem 7: 08/25/16 07:56 08/25/16 07:56 Labs: Abnormal Lab Results - Last 24 Hours (Table) 08/25/16 08/25/16 08/25/16 Range/Units 12:53 17:33 21:28 POC Glucose (mg/dL) 134 H 182 H 135 H (75-99) mg/dL 08/26/16 Range/Units 07:09 POC Glucose (mg/dL) 125 H (75-99) mg/dL Assessment and Plan Plan: Assessment: #1. Nonoliguric acute kidney injury secondary to ischemic ATN secondary to severe sepsis and anemia. Also being diuresed. Creatinine up to 1.31 as of yesterday. Urinalysis noted to be benign. #2. Volume overload as evidenced by vascular congestion on previous chest x- ray. #3. Severe aortic stenosis and moderate to severe mitral regurgitation. #4. Moderate to severe pulmonary hypertension. #5. 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 #6. Anemia due to underlying GI bleed. Apparently she's been refusing colonoscopy. Status post blood transfusion on August 21. Gastroenterology following. Potential capsule endoscopy as an outpatient. #7. Hypernatremia secondary to lack of oral water intake. Improved with water replacement. Plan: Start Lasix 20 mg IV twice daily. Avoid nephrotoxic agents and hypotensive episodes. Repeat electrolytes in the morning. Antibiotics per infectious disease recommendations. Monitor hemoglobin and transfuse as needed.
[2016-08-26] MEDS ORDERED: FUROSEMIDE 10 MG/ML 2 ML VIAL IV SCH (11:00)
[2016-08-26 11:16] LABS: Basophils % (A) 0 %; CH 26.5; CHCM 29.1; Eosinophils # (A) 0.1 k/uL (0-0.7); Eosinophils % (A) 1 %; HCT 27.3 % (34.0-46.0); HDW 3.78; HGB 7.9 gm/dL (11.4-16.0); Hypochromasia Marked; Luc # (Auto) 0.13; Luc % (Auto) 2; Lymphocytes # (A) 0.8 k/uL (1.0-4.8); Lymphocytes % (A) 9 %; MCH 26.4 pg (25.0-35.0); MCV 91.1 fL (80.0-100.0); Monocytes # (A) 0.5 k/uL (0-1.0); Monocytes % (A) 6 %; Neutrophils # (A) 7.4 k/uL (1.3-7.7); Neutrophils % (A) 82 %; Poikilocytosis Slight; RDW 15.6 % (11.5-15.5); WBC (Perox) 9.24
[2016-08-26 11:56] LABS: Calcium 8.8 mg/dL (8.4-10.2); Potassium 3.9 mmol/L (3.5-5.1); Total Bilirubin 0.4 mg/dL (0.2-1.3); Total Protein 5.1 g/dL (6.3-8.2)
[2016-08-26 12:31] LABS: Glucose,Whole Blood 147 mg/dL (75-99)
--- NOTE | 2016-08-26 14:01 | P.PN ---
Subjective Principal diagnosis: Non ST elevation myocardial infarction, anemia 80-year-old female patient who initially presented on 08/13/2016 because of increased shortness of breath. The patient was ruled in for an acute non-ST segment elevation myocardial infarction. The patient is known to have coronary artery disease with previous bypass surgery. Other comorbid conditions include hypertension diabetes mellitus and hyperlipidemia and congestion heart failure. During this current hospitalization, the patient was also found to be septic with MRSA bacteremia, acute kidney injury secondary to acute ischemic trigger necrosis, sepsis, hypotension, pressor dependence, an acute transfusion reaction secondary to her packed RBC transfusion for which the patient was given for a low hemoglobin. The patient was also suspected to have a fracture of the left humerus. A CAT scan was done yesterday showed a comminuted fracture of the left humeral neck, and pathologic fracture was suspected with a concern of an underlying malignancy. There was soft tissue thickening in the area which could be related to edema post fracture or soft tissue mass. Note that I have seen this patient back in May 2016 for chest pain and suspected GI bleeding and back then was noted the patient sustained a fracture to her left humerus and this was being treated conservatively and she did not require any surgical intervention. The patient also is known to have history of syncope during which she did have had sustained the left humeral fracture, episodes of dysphagia, chronic anemia, small bowel obstruction related to a benign lesion of the intestine that was resected, chronic renal failure stage III kidney disease, CHF with diastolic dysfunction and ejection fraction of 55- 60%, aortic stenosis and previous coronary artery bypass surgery. On 08/17/2016 I'm seeing this patient in follow-up. The patient is resting comfortably in bed. The patient has no respiratory distress. Hemodynamically she is stable and the patient has been off dopamine for more than 12 hours. She is producing adequate amount of urine output. Her pulse ox is around 98% on 2 L of oxygen nasal cannula. She has a cardiac murmur which is related to aortic stenosis. As mentioned earlier, the patient had staph aureus Ammann MSSA and the blood, on 3 different blood cultures and the most recent blood cultures negative. For that reason, the patient was covered with cefazolin 2 g every 12 hours. Renal function is improving and creatinine is down to 1.5. Rest of the electrolytes show no major abnormalities. The patient continues to have a component of non-anion gap metabolic acidosis with a bicarb level of 18. The chest x-ray from admission showed evidence of any pneumonia. Echocardiogram from May 2016 showed a ejection fraction of 55-60% along with moderate degree of aortic stenosis. The patient is seen again today 08/18/2016 in follow-up on the regular medical floor. She is awake and alert in no acute distress. She did undergo transesophageal echocardiogram yesterday. There is no evidence of vegetation on any of the valves. There was noted severe aortic stenosis with moderate to severe mitral regurgitation and moderate to severe pulmonary hypertension. Today she denies any worsening shortness of breath. She is maintaining good O2 saturations in the mid 90s on 2 L/m per nasal cannula. She's been hemodynamically stable. She remains on cefazolin. Bicarb remains low at 18. She remains on sodium bicarbonate tablets. She remains in a negative balance. Creatinine improved to 1.50. Her hemoglobin is drifting down currently at 7.2. The patient is seen again today 08/19/2016 in follow-up on the regular medical floor. She is continuing to maintain O2 saturations in the 90s on 2 L/m. Nasal cannula. She is currently afebrile. No leukocytosis. Hemoglobin stable at 7.4. Bicarb is improved slightly at 20. Creatinine has recovered to 0.85. She did have a biopsy of the left shoulder results of which are pending. She still has significant discomfort in that shoulder. The patient was seen again today 08/21/2016 as she was now being transferred to the intensive care unit. She had developed recurrent GI bleeding. She had black tarry stools last night and a drop in her hemoglobin to 6.8. A repeat hemoglobin was 7.1 and then later today he was back to 6.3. She did have a previous reaction to a blood transfusion earlier this admission as well. Also noted was her INR 4.4. She did receive some vitamin K and it is currently 2.4. GI services and surgical services have been involved with her as well. Currently, she is seen resting fairly comfortable in bed. She is somewhat anxious due to her situation but denies any worsening shortness of breath, cough or congestion. No chest pain, no lightheadedness or dizziness. She is maintaining O2 saturations at 100% on 2 L/m per nasal cannula. She remains hemodynamically stable. Not requiring any pressor support. The patient is seen again today 08/22/2016 in the intensive care unit. She is awake and alert in no acute distress. She did receive a unit of transfer views packed red blood cells and her current hemoglobin is 8.4. INR 1.4. GI services are on the case and are she has not had any further black tarry stools considering EGD. The patient has continued to decline a colonoscopy. She has not had any further black tarry stools or hematoemesis. She continues on Protonix IV. Aspirate of the left shoulder did come back positive for methicillin sensitive Staphylococcus aureus in her blood cultures were also positive for MSSA. She has been maintained on cefazolin. She remains hemodynamically stable. She is maintaining good O2 saturations at 96% on room air. She is afebrile. Current creatinine 1.10. On 08/23/2016 the patient is on the medical floor. She is doing well. No specific complaints. No episodes of any GI bleeding. No fever or chills. No signs of septicemia. Still on IV cefazolin regarding MSSA bacteremia and possible osteomyelitis. No change in mental status. Hemoglobin is stable at 8.1. No nausea or vomiting. Tolerating diet. On 08/24/2016, patient is mostly complaining of slight nausea. No abdominal pain , no melena, no hematemesis, no evidence of GI bleeding, she is also complaining of slight shortness of breath. Remains on medications as noted for her MSSA bacteremia. Hemoglobin today is 8.4. Basic metabolic profile was reviewed, BUN is 53 creatinine is 1.17. The patient is seen again today 08/25/2016 in follow-up on the regular medical floor. She is awake and alert in no acute distress. She remains quite weak and mainly in bed at this point. She is maintaining good O2 saturations in the upper 90s on room air. She is afebrile. No further active bleeding documented. Current hemoglobin 8.2. White count 11.4. Creatinine 1.31. She remains on cefazolin for her MSSA and both the blood and the bone aspirate. The patient seen again today 08/26/2016 in follow-up on the regular medical floor. She did have episode of shortness of breath yesterday afternoon. A chest x-ray was consistent with congestive heart failure but not significantly worse as compared to previous. She is on Lasix 40 mg IV every 12 hours. Her renal function is about the same current creatinine 1.27. BUN 52. He remains on bicarb 650 mg twice a day. Her hemoglobin is 7.9 today. There are no plans for EGD/colonoscopy as the patient has continued to decline them as offered by GI services. He has been afebrile. Hemodynamically stable. Maintaining good O2 saturations in the 90s on room air. She remains on cefazolin for the MSSA bacteremia and left shoulder aspirate. A PICC line was placed yesterday. Objective - Vital Signs Vital signs: Vital Signs Temp 96.5 F L 08/26/16 07:00 Pulse 52 L 08/26/16 09:27 Resp 16 08/26/16 07:00 BP 137/65 08/26/16 07:00 Pulse Ox 99 08/26/16 07:00 Intake & Output 08/25/16 08/26/16 08/26/16 18:59 06:59 18:59 Intake Total 40 Output Total 250 2100 Balance -250 -2059 Intake: Oral 40 Output: Urine 250 2100 Other: Voiding Method Indwelling Catheter Indwelling Catheter - Exam GENERAL EXAM: Weak, pale. EYES: Normal reaction of pupils, equal size. NOSE: Clear with pink turbinates. THROAT: No erythema or exudates. NECK: No masses, no JVD. CHEST: No chest wall deformity. LUNGS: Equal air entry with crackles in the posterior bases more so on the left. CVS: S1 and S2 normal with an audible murmur, regular rhythm. ABDOMEN: No hepatosplenomegaly, normal bowel sounds, no guarding or rigidity. Extremities: There is 1+ peripheral edema. No clubbing, no cyanosis. Peripheral pulses are intact. - Labs CBC & Chem 7: 08/26/16 10:26 08/26/16 10:26 Labs: Abnormal Lab Results - Last 24 Hours (Table) 08/25/16 08/25/16 08/26/16 Range/Units 17:33 21:28 07:09 RBC (3.80-5.40) m/uL Hgb (11.4-16.0) gm/dL Hct (34.0-46.0) % MCHC (31.0-37.0) g/dL RDW (11.5-15.5) % Plt Count (150-450) k/uL Lymphocytes # (1.0-4.8) k/uL BUN (7-17) mg/dL Creatinine (0.52-1.04) mg/dL Glucose (74-99) mg/dL POC Glucose (mg/dL) 182 H 135 H 125 H (75-99) mg/dL Total Protein (6.3-8.2) g/dL Albumin (3.5-5.0) g/dL 08/26/16 08/26/16 08/26/16 Range/Units 10:26 10:26 12:23 RBC 3.00 L (3.80-5.40) m/uL Hgb 7.9 L (11.4-16.0) gm/dL Hct 27.3 L (34.0-46.0) % MCHC 29.0 L (31.0-37.0) g/dL RDW 15.6 H (11.5-15.5) % Plt Count 509 H (150-450) k/uL Lymphocytes # 0.8 L (1.0-4.8) k/uL BUN 52 H (7-17) mg/dL Creatinine 1.27 H (0.52-1.04) mg/dL Glucose 114 H (74-99) mg/dL POC Glucose (mg/dL) 147 H (75-99) mg/dL Total Protein 5.1 L (6.3-8.2) g/dL Albumin 2.7 L (3.5-5.0) g/dL Assessment and Plan Plan: Impression: #1 Non-ST segment elevation myocardial infarction. #2 Anemia, with recurrent bleeding. Status post 2 units of red blood cells. Current hemoglobin 7.9. GI services are on the case. #3 Sepsis secondary to Methicillin Sensitive Staphylococcus aureus in both the blood and left shoulder aspirate. #4 Febrile illness secondary to above and suspected urinary tract infection as well. #5 Acute exacerbation of diastolic congestive heart failure. #6 Hyperlipidemia. #7 Diabetes mellitus. #8 Hypertension. #9 History of coronary artery disease with previous coronary artery bypass grafting. #10 Left upper extremity pain secondary to recent left humeral fracture. Aspirate is positive for MSSA. #11 Valvular heart disease with severe aortic stenosis, moderate to severe mitral regurgitation, moderate to severe pulmonary hypertension. #12 Acute kidney injury secondary to hypotension/hypo-profusion. Current creatinine 1.31. #13 Poor overall functional performance based on the above-mentioned multiple comorbidities. Plan: The patient was seen and evaluated by Dr. Hardy. She is currently stable from the pulmonary standpoint. She did have a PICC line placed yesterday. She remains on cefazolin. Continue diuretics. Continue to monitor.
--- NOTE | 2016-08-26 14:55 | P.PN ---
Subjective Patient is evaluated at bedside. Patient complains of nausea without vomiting. Patient complains of shortness of breath. Reports improvement in abdominal pain. Reports decreased appetite. Reports flatus with brown bowel movement last night. Hemoglobin 7.9 from 8.2 yesterday. Afebrile. No evidence of leukocytosis. Objective - Vital Signs Vital signs: Vital Signs Temp 96.5 F L 08/26/16 07:00 Pulse 52 L 08/26/16 09:27 Resp 16 08/26/16 07:00 BP 137/65 08/26/16 07:00 Pulse Ox 99 08/26/16 07:00 Intake & Output 08/25/16 08/26/16 08/26/16 18:59 06:59 18:59 Intake Total 40 Output Total 250 2100 Balance -250 -2059 Intake: Oral 40 Output: Urine 250 2100 Other: Voiding Method Indwelling Catheter Indwelling Catheter - Exam GENERAL: Pt awake and alert, well-nourished, and in no acute distress. LUNGS: Breath sounds diminished to auscultation bilaterally. No wheezes, rales , or rhonchi. HEART: Heart S1, S2, no S3 or S4. Regular rate and rhythm. Systolic murmur. ABDOMEN: Soft, mild diffuse tenderness, nondistended, normoactive bowel sounds. No guarding, no rebound. NEUROLOGICAL: Pt oriented x 3. - Labs CBC & Chem 7: 08/26/16 10:26 08/26/16 10:26 Labs: Abnormal Lab Results - Last 24 Hours (Table) 08/25/16 08/25/16 08/26/16 Range/Units 17:33 21:28 07:09 RBC (3.80-5.40) m/uL Hgb (11.4-16.0) gm/dL Hct (34.0-46.0) % MCHC (31.0-37.0) g/dL RDW (11.5-15.5) % Plt Count (150-450) k/uL Lymphocytes # (1.0-4.8) k/uL BUN (7-17) mg/dL Creatinine (0.52-1.04) mg/dL Glucose (74-99) mg/dL POC Glucose (mg/dL) 182 H 135 H 125 H (75-99) mg/dL Total Protein (6.3-8.2) g/dL Albumin (3.5-5.0) g/dL 08/26/16 08/26/16 08/26/16 Range/Units 10:26 10:26 12:23 RBC 3.00 L (3.80-5.40) m/uL Hgb 7.9 L (11.4-16.0) gm/dL Hct 27.3 L (34.0-46.0) % MCHC 29.0 L (31.0-37.0) g/dL RDW 15.6 H (11.5-15.5) % Plt Count 509 H (150-450) k/uL Lymphocytes # 0.8 L (1.0-4.8) k/uL BUN 52 H (7-17) mg/dL Creatinine 1.27 H (0.52-1.04) mg/dL Glucose 114 H (74-99) mg/dL POC Glucose (mg/dL) 147 H (75-99) mg/dL Total Protein 5.1 L (6.3-8.2) g/dL Albumin 2.7 L (3.5-5.0) g/dL Assessment and Plan Plan: Impression: 1. Upper GI bleed, stable. Plan: Continue diet. Continue Protonix. Continue to monitor hemoglobin and overt signs of bleeding. Patient is currently declining EGD or colonoscopy. Surgical service will sign off, please consult if services needed. The above impression and plan have been discussed and directed by Dr. Mehta. Gracy MATA acting as scribe for Dr. Mehta.
--- NOTE | 2016-08-26 17:00 | P.PN ---
Subjective This is a 80-year-old female, patient of [facility]. She has a known past medical history of myocardial infarction and three-vessel coronary artery bypass graft, coronary artery disease, hyperlipidemia, hypertension, diabetes, chronic kidney disease and dementia. Also history of anemia with recent EGD and May 2016 revealing gastritis colonoscopy was several years ago. She presents to the hospital with complaints of chest pain, abdominal pain , black stools with episodes of diarrhea. She's found have evidence of a non- ST elevated GA. Not able to be on aspirin or IV heparin at this time due to her significant anemia. Patient is found to have a UTI as well as positive blood cultures growing presumptive staph aureus. Patient was reevaluated again on 08/19/2016 Today patient is complaining of chest pain, she will be transferred back to telemetry floor, order stool restart IV heparin and to reconsult cardiology were initiated Patient reevaluated on 08/20/2016 see note by Melyssa GARLAND Patient was evaluated on 08/21/2016 Hgb down to 6.8 patient having shortness of breath she was transferred back to ICU Objective - Vital Signs Vital signs: Vital Signs Temp 96.5 F L 08/26/16 15:00 Pulse 64 08/26/16 16:18 Resp 16 08/26/16 15:00 BP 100/53 08/26/16 15:00 Pulse Ox 99 08/26/16 15:00 Intake & Output 08/25/16 08/26/16 08/26/16 18:59 06:59 18:59 Intake Total 40 Output Total 250 2100 Balance Intake: Oral 40 Output: Urine 250 2100 Other: Voiding Method Indwelling Catheter Indwelling Catheter - Exam In general patient is alert and oriented 3 in no apparent distress HEENT head normocephalic and atraumatic Neck is supple no JVD no goiter no lymphadenopathy Chest exam reveals a few scattered rhonchi no wheezing Cardiac exam reveals regular heart sounds S1 and S2 with mild tachycardia no gallops no murmurs Abdomen is soft nontender no organomegaly Extremity exam reveals no edema no cyanosis or clubbing - Labs CBC & Chem 7: 08/26/16 10:26 08/26/16 10:26 Labs: Abnormal Lab Results - Last 24 Hours (Table) 08/25/16 08/25/16 08/26/16 Range/Units 17:33 21:28 07:09 RBC (3.80-5.40) m/uL Hgb (11.4-16.0) gm/dL Hct (34.0-46.0) % MCHC (31.0-37.0) g/dL RDW (11.5-15.5) % Plt Count (150-450) k/uL Lymphocytes # (1.0-4.8) k/uL BUN (7-17) mg/dL Creatinine (0.52-1.04) mg/dL Glucose (74-99) mg/dL POC Glucose (mg/dL) 182 H 135 H 125 H (75-99) mg/dL Total Protein (6.3-8.2) g/dL Albumin (3.5-5.0) g/dL 08/26/16 08/26/16 08/26/16 Range/Units 10:26 10:26 12:23 RBC 3.00 L (3.80-5.40) m/uL Hgb 7.9 L (11.4-16.0) gm/dL Hct 27.3 L (34.0-46.0) % MCHC 29.0 L (31.0-37.0) g/dL RDW 15.6 H (11.5-15.5) % Plt Count 509 H (150-450) k/uL Lymphocytes # 0.8 L (1.0-4.8) k/uL BUN 52 H (7-17) mg/dL Creatinine 1.27 H (0.52-1.04) mg/dL Glucose 114 H (74-99) mg/dL POC Glucose (mg/dL) 147 H (75-99) mg/dL Total Protein 5.1 L (6.3-8.2) g/dL Albumin 2.7 L (3.5-5.0) g/dL Assessment and Plan Plan: #1 Non-ST segment elevation myocardial infarction. Evaluated by cardiology during this admission, no intervention recommended so far #2 Anemia, suspect possible GI bleed in a patient with recent EGD in May 2016, and last colonoscopy 2010. Gastroenterology following, will proceed with colonoscopy when general medical condition improves. HGB 7.9 today Will give her a dose of IV iron and monitor hemoglobin closely #3 Sepsis, blood culture positive for Staphylococcus aureus. Currently maintained on IV Cefazolin #4 Febrile illness secondary to above and suspected urinary tract infection as well. #5 Acute exacerbation of diastolic congestive heart failure. #6 Hyperlipidemia. #7 Diabetes mellitus. #8 Hypertension. #9 History of coronary artery disease with previous coronary artery bypass grafting. #10 Left upper extremity pain secondary to recent left humeral fracture. #11 Valvular heart disease with severe aortic stenosis, moderate to severe mitral regurgitation, moderate to severe pulmonary hypertension. #12 Acute kidney injury secondary to hypotension and hypoprofusion improved cr 1.1 yesterday , will recheck labs in am # 13 Elevated INR not on any anticoagulation Dr Song following
[2016-08-26 17:05] LABS: Glucose,Whole Blood 134 mg/dL (75-99)
--- NOTE | 2016-08-26 17:11 | PN ---
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 INTERVAL HISTORY: The patient is afebrile. She seems to be slightly sleepy and a little lethargic; apparently she did receive a dose of Xanax for anxiety. No nausea or vomiting has been noted or any diarrhea per the RN. On examination, blood pressure is 100/53 with a pulse of 85, temperature 96.5. She is 99% on room air. General description is an elderly female lying in bed in no distress. RESPIRATORY SYSTEM: Unlabored breathing. Clear to auscultation anteriorly. HEART: S1, S2. Regular rate and rhythm. ABDOMEN: Soft. No tenderness. LABS: Hemoglobin is 7.9, white count of 9. BUN of 52, creatinine 1.27. DIAGNOSTIC IMPRESSION AND PLAN: Patient with methicillin-susceptible Staphylococcus aureus bacteremia. Source is likely left humerus osteomyelitis. She grew the same organism. Follow-up blood culture has been negative. Patient to be maintained on cefazolin 2 grams q.8 for at least 6 to 8 weeks per her clinical response with weekly monitoring of her blood work. Continue supportive care.
[2016-08-26] MEDS ORDERED: SODIUM FERRIC GLUCONAT-SUCROSE 125 MG in SODIUM CHLORIDE 0.9% 100 ML IVPB ONE (17:15)
[2016-08-26] MEDS: HYDROcodone/APAP 5-325MG 1 EACH TAB PO PRN (17:46)
[2016-08-26 21:06] LABS: Glucose,Whole Blood 183 mg/dL (75-99)
[2016-08-26] MEDS: DONEPEZIL 10 MG TAB PO SCH (21:59)
[2016-08-26] MEDS: SERTRALINE 100 MG TAB PO SCH (21:59)
[2016-08-26] MEDS: MULTIVITAMINS, THERA 1 EACH TAB PO SCH (21:59)
[2016-08-26] MEDS: ATORVASTATIN 40 MG TAB PO SCH (21:59)
[2016-08-26] MEDS: FENOFIBRATE 160 MG TAB PO SCH (21:59)
[2016-08-26] MEDS: CHOLECALCIFEROL 1,000 UNIT TAB PO SCH (21:59)
[2016-08-26] MEDS: MELATONIN 5 MG TABLET PO SCH (22:53)
[2016-08-27] MEDS: HYDROcodone/APAP 5-325MG 1 EACH TAB PO PRN ×2 (04:03→10:03)
[2016-08-27 07:26] LABS: Glucose,Whole Blood 173 mg/dL (75-99)
[2016-08-27] MEDS: IPRATROPIUM-ALBUTEROL 3 ML NEB INHALATION SCH ×4 (08:01→20:27)
[2016-08-27] MEDS: SODIUM BICARBONATE TAB 650 MG TAB PO SCH (08:06)
[2016-08-27] MEDS: ISOSORBIDE MONONITRATE ER 30 MG TAB.ER.24H PO SCH (08:06)
[2016-08-27] MEDS: INSULIN LISPRO (humaLOG) 300 UNIT/3 ML VIAL SQ SCH ×4 (08:06→22:00)
[2016-08-27] MEDS: METOPROLOL TARTRATE 25 MG TAB PO SCH ×2 (08:06→22:00)
[2016-08-27] MEDS: ceFAZolin 2 GM in SODIUM CHLORIDE 0.9% 100 ML IVPB SCH ×2 (08:06→21:59)
[2016-08-27] MEDS: PANTOPRAZOLE 40 MG TABLET PO SCH (08:06)
[2016-08-27] MEDS: POLYETHYLENE GLYCOL 3350 17 GM POWD.PACK PO SCH (08:06)
[2016-08-27] MEDS: DOCUSATE 100 MG CAP PO SCH (08:06)
[2016-08-27] MEDS: FUROSEMIDE 10 MG/ML 4 ML VIAL IV SCH ×2 (08:06→22:00)
[2016-08-27] MEDS: EZETIMIBE 10 MG TAB PO SCH (08:06)
[2016-08-27] MEDS: ALPRAZolam 0.25 MG TAB PO PRN (08:06)
--- NOTE | 2016-08-27 09:50 | XR ---
EXAMINATION TYPE: XR chest 1V portable DATE OF EXAM: 08/27/2016 9:21 AM COMPARISON: 08/25/2016 HISTORY: Shortness of breath FINDINGS: Noted is pulmonary venous congestion with scattered infiltrates. There is also cardiomegaly and small effusions. IMPRESSION: Findings compatible with congestive failure. Infiltrates of other etiology are not excluded. Clinical correlation and progress studies are recommended.
[2016-08-27 10:25] LABS: Calcium 8.6 mg/dL (8.4-10.2); Potassium 3.4 mmol/L (3.5-5.1); Total Bilirubin 0.3 mg/dL (0.2-1.3)
[2016-08-27 10:26] LABS: Basophils % (A) 0 %; CH 26.3; CHCM 28.7; Eosinophils # (A) 0.1 k/uL (0-0.7); Eosinophils % (A) 1 %; HCT 25.9 % (34.0-46.0); HDW 3.66; HGB 7.8 gm/dL (11.4-16.0); Hypochromasia Marked; Luc # (Auto) 0.12; Luc % (Auto) 2; Lymphocytes # (A) 0.7 k/uL (1.0-4.8); Lymphocytes % (A) 9 %; MCH 27.7 pg (25.0-35.0); MCHC 30.3 g/dL (31.0-37.0); MCV 91.6 fL (80.0-100.0); Mean Platelet Volume 6.8; Monocytes # (A) 0.4 k/uL (0-1.0); Monocytes % (A) 6 %; Neutrophils # (A) 6.2 k/uL (1.3-7.7); Neutrophils % (A) 82 %; Poikilocytosis Slight; RBC 2.83 m/uL (3.80-5.40); RDW 15.4 % (11.5-15.5); WBC 7.6 k/uL (3.8-10.6); WBC (Perox) 7.81
[2016-08-27] MEDS: POTASSIUM CHLORIDE 10 MEQ, LIDOCAINE 2% INJ 10 MG in SODIUM CHLORIDE 0.9% 100 ML IVPB SCH ×4 (10:59→14:18)
--- NOTE | 2016-08-27 11:09 | P.PN ---
Subjective Patient is seen in follow-up for acute kidney injury. Her baseline creatinine is 1 and peaked at 2.29 this admission. It came down to 0.95 and is elevated at 1.33 today. 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 There was concern for endocarditis and she underwent a CLARIBEL which revealed no vegetations however she does have severe aortic stenosis, moderate to severe mitral regurgitation and pulmonary hypertension. She is nonoliguric. Hemoglobin was down to 6.3 this admission for which she did receive blood transfusion. Hemoglobin 7.8 this morning. She has been refusing a colonoscopy/EGD. No active bleeding. She does admit to dyspnea and and is maintained on Lasix 40 mg IV twice daily. Vital signs are stable. General: The patient appeared well nourished and normally developed. HEENT: Head exam is unremarkable. Neck is without jugular venous distension. LUNGS: Lungs are clear to auscultation and percussion. Breath sounds decreased. HEART: Rate and Rhythm are regular. First and second heart sounds normal. No murmurs, rubs or gallops. ABDOMEN: Abdominal exam reveals normal bowel sounds. Non-tender and non- distended. No evidence of peritonitis. EXTREMITITES: No clubbing, cyanosis, or edema. Objective - Vital Signs Vital signs: Vital Signs Temp 97.2 F L 08/27/16 07:00 Pulse 60 08/27/16 08:13 Resp 17 08/27/16 07:00 BP 111/51 08/27/16 07:00 Pulse Ox 94 L 08/27/16 08:02 Intake & Output 08/26/16 08/27/16 08/27/16 18:59 06:59 18:59 Intake Total 100 Output Total 1600 1400 Balance -1500 -1400 Intake: Intake, IV Titration 100 Amount Sodium Ferric Gluconat- 100 Sucrose 125 mg In Sodium Chloride 0.9% 100 ml @ 100 mls/hr IVPB ONCE ONE Rx#:[id number] Output: Urine 1000 1400 Stool 600 0 Other: Voiding Method Indwelling Catheter Indwelling Catheter Indwelling Catheter # Bowel Movements 0 - Labs CBC & Chem 7: 08/27/16 09:31 08/27/16 09:31 Labs: Abnormal Lab Results - Last 24 Hours (Table) 08/26/16 08/26/16 08/26/16 Range/Units 10:26 10:26 12:23 RBC 3.00 L (3.80-5.40) m/uL Hgb 7.9 L (11.4-16.0) gm/dL Hct 27.3 L (34.0-46.0) % MCHC 29.0 L (31.0-37.0) g/dL RDW 15.6 H (11.5-15.5) % Plt Count 509 H (150-450) k/uL Lymphocytes # 0.8 L (1.0-4.8) k/uL Potassium (3.5-5.1) mmol/L BUN 52 H (7-17) mg/dL Creatinine 1.27 H (0.52-1.04) mg/dL Glucose 114 H (74-99) mg/dL POC Glucose (mg/dL) 147 H (75-99) mg/dL Total Protein 5.1 L (6.3-8.2) g/dL Albumin 2.7 L (3.5-5.0) g/dL 08/26/16 08/26/16 08/27/16 Range/Units 16:56 20:54 07:16 RBC (3.80-5.40) m/uL Hgb (11.4-16.0) gm/dL Hct (34.0-46.0) % MCHC (31.0-37.0) g/dL RDW (11.5-15.5) % Plt Count (150-450) k/uL Lymphocytes # (1.0-4.8) k/uL Potassium (3.5-5.1) mmol/L BUN (7-17) mg/dL Creatinine (0.52-1.04) mg/dL Glucose (74-99) mg/dL POC Glucose (mg/dL) 134 H 183 H 173 H (75-99) mg/dL Total Protein (6.3-8.2) g/dL Albumin (3.5-5.0) g/dL 08/27/16 08/27/16 Range/Units 09:31 09:31 RBC 2.83 L (3.80-5.40) m/uL Hgb 7.8 L (11.4-16.0) gm/dL Hct 25.9 L (34.0-46.0) % MCHC 30.3 L (31.0-37.0) g/dL RDW (11.5-15.5) % Plt Count 460 H (150-450) k/uL Lymphocytes # 0.7 L (1.0-4.8) k/uL Potassium 3.4 L (3.5-5.1) mmol/L BUN 49 H (7-17) mg/dL Creatinine 1.33 H (0.52-1.04) mg/dL Glucose 150 H (74-99) mg/dL POC Glucose (mg/dL) (75-99) mg/dL Total Protein 5.0 L (6.3-8.2) g/dL Albumin 2.6 L (3.5-5.0) g/dL Assessment and Plan Plan: Assessment: #1. Nonoliguric acute kidney injury secondary to ischemic ATN secondary to severe sepsis and anemia. Also being diuresed. Creatinine 1.33 today. Urinalysis noted to be benign. #2. Volume overload as evidenced by vascular congestion on previous chest x- ray. #3. Severe aortic stenosis and moderate to severe mitral regurgitation. #4. Moderate to severe pulmonary hypertension. #5. 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 #6. Anemia due to underlying GI bleed. Apparently she's been refusing colonoscopy. Status post blood transfusion on August 21. Gastroenterology following. Potential capsule endoscopy as an outpatient. #7. Hypernatremia secondary to lack of oral water intake. Resolved. #8. Hypokalemia secondary to diuresis. Plan: Continue Lasix 40 mg IV twice daily. Avoid nephrotoxic agents and hypotensive episodes. Repeat electrolytes in the morning. Antibiotics per infectious disease recommendations. Monitor hemoglobin and transfuse as needed. Replace potassium. 40 mEq today. Check magnesium level.
[2016-08-27 12:43] LABS: Glucose,Whole Blood 155 mg/dL (75-99)
--- NOTE | 2016-08-27 13:43 | P.PN ---
Subjective Principal diagnosis: Non ST elevation myocardial infarction, anemia 80-year-old female patient who initially presented on 08/13/2016 because of increased shortness of breath. The patient was ruled in for an acute non-ST segment elevation myocardial infarction. The patient is known to have coronary artery disease with previous bypass surgery. Other comorbid conditions include hypertension diabetes mellitus and hyperlipidemia and congestion heart failure. During this current hospitalization, the patient was also found to be septic with MRSA bacteremia, acute kidney injury secondary to acute ischemic trigger necrosis, sepsis, hypotension, pressor dependence, an acute transfusion reaction secondary to her packed RBC transfusion for which the patient was given for a low hemoglobin. The patient was also suspected to have a fracture of the left humerus. A CAT scan was done yesterday showed a comminuted fracture of the left humeral neck, and pathologic fracture was suspected with a concern of an underlying malignancy. There was soft tissue thickening in the area which could be related to edema post fracture or soft tissue mass. Note that I have seen this patient back in May 2016 for chest pain and suspected GI bleeding and back then was noted the patient sustained a fracture to her left humerus and this was being treated conservatively and she did not require any surgical intervention. The patient also is known to have history of syncope during which she did have had sustained the left humeral fracture, episodes of dysphagia, chronic anemia, small bowel obstruction related to a benign lesion of the intestine that was resected, chronic renal failure stage III kidney disease, CHF with diastolic dysfunction and ejection fraction of 55- 60%, aortic stenosis and previous coronary artery bypass surgery. On 08/17/2016 I'm seeing this patient in follow-up. The patient is resting comfortably in bed. The patient has no respiratory distress. Hemodynamically she is stable and the patient has been off dopamine for more than 12 hours. She is producing adequate amount of urine output. Her pulse ox is around 98% on 2 L of oxygen nasal cannula. She has a cardiac murmur which is related to aortic stenosis. As mentioned earlier, the patient had staph aureus Ammann MSSA and the blood, on 3 different blood cultures and the most recent blood cultures negative. For that reason, the patient was covered with cefazolin 2 g every 12 hours. Renal function is improving and creatinine is down to 1.5. Rest of the electrolytes show no major abnormalities. The patient continues to have a component of non-anion gap metabolic acidosis with a bicarb level of 18. The chest x-ray from admission showed evidence of any pneumonia. Echocardiogram from May 2016 showed a ejection fraction of 55-60% along with moderate degree of aortic stenosis. The patient is seen again today 08/18/2016 in follow-up on the regular medical floor. She is awake and alert in no acute distress. She did undergo transesophageal echocardiogram yesterday. There is no evidence of vegetation on any of the valves. There was noted severe aortic stenosis with moderate to severe mitral regurgitation and moderate to severe pulmonary hypertension. Today she denies any worsening shortness of breath. She is maintaining good O2 saturations in the mid 90s on 2 L/m per nasal cannula. She's been hemodynamically stable. She remains on cefazolin. Bicarb remains low at 18. She remains on sodium bicarbonate tablets. She remains in a negative balance. Creatinine improved to 1.50. Her hemoglobin is drifting down currently at 7.2. The patient is seen again today 08/19/2016 in follow-up on the regular medical floor. She is continuing to maintain O2 saturations in the 90s on 2 L/m. Nasal cannula. She is currently afebrile. No leukocytosis. Hemoglobin stable at 7.4. Bicarb is improved slightly at 20. Creatinine has recovered to 0.85. She did have a biopsy of the left shoulder results of which are pending. She still has significant discomfort in that shoulder. The patient was seen again today 08/21/2016 as she was now being transferred to the intensive care unit. She had developed recurrent GI bleeding. She had black tarry stools last night and a drop in her hemoglobin to 6.8. A repeat hemoglobin was 7.1 and then later today he was back to 6.3. She did have a previous reaction to a blood transfusion earlier this admission as well. Also noted was her INR 4.4. She did receive some vitamin K and it is currently 2.4. GI services and surgical services have been involved with her as well. Currently, she is seen resting fairly comfortable in bed. She is somewhat anxious due to her situation but denies any worsening shortness of breath, cough or congestion. No chest pain, no lightheadedness or dizziness. She is maintaining O2 saturations at 100% on 2 L/m per nasal cannula. She remains hemodynamically stable. Not requiring any pressor support. The patient is seen again today 08/22/2016 in the intensive care unit. She is awake and alert in no acute distress. She did receive a unit of transfer views packed red blood cells and her current hemoglobin is 8.4. INR 1.4. GI services are on the case and are she has not had any further black tarry stools considering EGD. The patient has continued to decline a colonoscopy. She has not had any further black tarry stools or hematoemesis. She continues on Protonix IV. Aspirate of the left shoulder did come back positive for methicillin sensitive Staphylococcus aureus in her blood cultures were also positive for MSSA. She has been maintained on cefazolin. She remains hemodynamically stable. She is maintaining good O2 saturations at 96% on room air. She is afebrile. Current creatinine 1.10. On 08/23/2016 the patient is on the medical floor. She is doing well. No specific complaints. No episodes of any GI bleeding. No fever or chills. No signs of septicemia. Still on IV cefazolin regarding MSSA bacteremia and possible osteomyelitis. No change in mental status. Hemoglobin is stable at 8.1. No nausea or vomiting. Tolerating diet. On 08/24/2016, patient is mostly complaining of slight nausea. No abdominal pain , no melena, no hematemesis, no evidence of GI bleeding, she is also complaining of slight shortness of breath. Remains on medications as noted for her MSSA bacteremia. Hemoglobin today is 8.4. Basic metabolic profile was reviewed, BUN is 53 creatinine is 1.17. The patient is seen again today 08/25/2016 in follow-up on the regular medical floor. She is awake and alert in no acute distress. She remains quite weak and mainly in bed at this point. She is maintaining good O2 saturations in the upper 90s on room air. She is afebrile. No further active bleeding documented. Current hemoglobin 8.2. White count 11.4. Creatinine 1.31. She remains on cefazolin for her MSSA and both the blood and the bone aspirate. The patient seen again today 08/26/2016 in follow-up on the regular medical floor. She did have episode of shortness of breath yesterday afternoon. A chest x-ray was consistent with congestive heart failure but not significantly worse as compared to previous. She is on Lasix 40 mg IV every 12 hours. Her renal function is about the same current creatinine 1.27. BUN 52. He remains on bicarb 650 mg twice a day. Her hemoglobin is 7.9 today. There are no plans for EGD/colonoscopy as the patient has continued to decline them as offered by GI services. He has been afebrile. Hemodynamically stable. Maintaining good O2 saturations in the 90s on room air. She remains on cefazolin for the MSSA bacteremia and left shoulder aspirate. A PICC line was placed yesterday. The patient is seen again today 08/27/2016 in follow-up in the regular medical floor. Her chest x-ray does continue to show evidence of congestive heart failure and some small pleural effusions. She is still requiring 2 L/m per nasal cannula to maintain O2 saturations in the 90s. We'll plan to do an ultrasound of the chest to determine if there is enough fluid for thoracentesis today. Objective - Vital Signs Vital signs: Vital Signs Temp 97.2 F L 08/27/16 07:00 Pulse 64 08/27/16 12:21 Resp 17 08/27/16 07:00 BP 111/51 08/27/16 07:00 Pulse Ox 94 L 08/27/16 08:02 Intake & Output 08/26/16 08/27/16 08/27/16 18:59 06:59 18:59 Intake Total 100 Output Total 1600 1400 Balance -1500 -1400 Intake: Intake, IV Titration 100 Amount Sodium Ferric Gluconat- 100 Sucrose 125 mg In Sodium Chloride 0.9% 100 ml @ 100 mls/hr IVPB ONCE ONE Rx#:[id number] Output: Urine 1000 1400 Stool 600 0 Other: Voiding Method Indwelling Catheter Indwelling Catheter Indwelling Catheter # Bowel Movements 0 - Exam GENERAL EXAM: Weak, pale. EYES: Normal reaction of pupils, equal size. NOSE: Clear with pink turbinates. THROAT: No erythema or exudates. NECK: No masses, no JVD. CHEST: No chest wall deformity. LUNGS: Equal air entry with crackles in the posterior bases more so on the left. CVS: S1 and S2 normal with an audible murmur, regular rhythm. ABDOMEN: No hepatosplenomegaly, normal bowel sounds, no guarding or rigidity. Extremities: There is 1+ peripheral edema. No clubbing, no cyanosis. Peripheral pulses are intact. - Labs CBC & Chem 7: 08/27/16 09:31 08/27/16 09:31 Labs: Abnormal Lab Results - Last 24 Hours (Table) 08/26/16 08/26/16 08/27/16 Range/Units 16:56 20:54 07:16 RBC (3.80-5.40) m/uL Hgb (11.4-16.0) gm/dL Hct (34.0-46.0) % MCHC (31.0-37.0) g/dL Plt Count (150-450) k/uL Lymphocytes # (1.0-4.8) k/uL Potassium (3.5-5.1) mmol/L BUN (7-17) mg/dL Creatinine (0.52-1.04) mg/dL Glucose (74-99) mg/dL POC Glucose (mg/dL) 134 H 183 H 173 H (75-99) mg/dL Total Protein (6.3-8.2) g/dL Albumin (3.5-5.0) g/dL 08/27/16 08/27/16 08/27/16 Range/Units 09:31 09:31 12:28 RBC 2.83 L (3.80-5.40) m/uL Hgb 7.8 L (11.4-16.0) gm/dL Hct 25.9 L (34.0-46.0) % MCHC 30.3 L (31.0-37.0) g/dL Plt Count 460 H (150-450) k/uL Lymphocytes # 0.7 L (1.0-4.8) k/uL Potassium 3.4 L (3.5-5.1) mmol/L BUN 49 H (7-17) mg/dL Creatinine 1.33 H (0.52-1.04) mg/dL Glucose 150 H (74-99) mg/dL POC Glucose (mg/dL) 155 H (75-99) mg/dL Total Protein 5.0 L (6.3-8.2) g/dL Albumin 2.6 L (3.5-5.0) g/dL Assessment and Plan Plan: Impression: #1 Non-ST segment elevation myocardial infarction. #2 Anemia, with recurrent bleeding. Status post 2 units of red blood cells. Current hemoglobin 7.8. GI services are on the case. #3 Sepsis secondary to Methicillin Sensitive Staphylococcus aureus in both the blood and left shoulder aspirate. #4 Febrile illness secondary to above and suspected urinary tract infection as well. #5 Acute exacerbation of diastolic congestive heart failure. #6 Hyperlipidemia. #7 Diabetes mellitus. #8 Hypertension. #9 History of coronary artery disease with previous coronary artery bypass grafting. #10 Left upper extremity pain secondary to recent left humeral fracture. Aspirate is positive for MSSA. #11 Valvular heart disease with severe aortic stenosis, moderate to severe mitral regurgitation, moderate to severe pulmonary hypertension. #12 Acute kidney injury secondary to hypotension/hypo-profusion. Current creatinine 1.33. #13 Poor overall functional performance based on the above-mentioned multiple comorbidities. Plan: The patient was seen and evaluated by Dr. Hardy. Her chest x-ray and labs were reviewed. We will order ultrasound of the chest to determine if there is enough fluid for thoracentesis. In the interim we'll continue with her current medications. We'll continue to follow.
--- NOTE | 2016-08-27 14:13 | P.PN ---
Subjective This is a 80-year-old female, patient of [facility]. She has a known past medical history of myocardial infarction and three-vessel coronary artery bypass graft, coronary artery disease, hyperlipidemia, hypertension, diabetes, chronic kidney disease and dementia. Also history of anemia with recent EGD and May 2016 revealing gastritis colonoscopy was several years ago. She presents to the hospital with complaints of chest pain, abdominal pain , black stools with episodes of diarrhea. She's found have evidence of a non- ST elevated AR. Not able to be on aspirin or IV heparin at this time due to her significant anemia. Patient is found to have a UTI as well as positive blood cultures growing presumptive staph aureus. She currently on vancomycin and Rocephin. She still complaining of some abdominal pain. Also having some shortness of breath. Hemoglobin is 7.1 today she'll get receive 1 unit of blood. Creatinine has jumped up to 2.24. Nephrology will be consulted Lasix and lisinopril are on hold. 08/17/2016 patient currently in the ICU. She had a reaction to blood transfusion on Wednesday. Hemoglobin is 7.2. She is having stools. Loose but not dark and no blood present. She is still complaining of some belly pain. Left arm is in sling. She has been off of the dopamine since yesterday. She is followed by multiple consulting physicians. Continue to monitor closely. The planning on transferring her to the sixth floor this afternoon. 08/20/2016 patient still complaining of some chest pain and abdominal pain. Yesterday she was sent to the telemetry floor due to chest pain. Troponin slightly elevated 0.318 but improved since admission. Cardiology has been reconsulted. Patient reports having bowel movements, denies any nausea vomiting. Denies any difficulty with urinating. 08/24/2016 patient reports being more short of breath today. Chest x-ray did show evidence of fluid congestion and possible CHF. Nephrology ordered 1 dose of IV Lasix. Patient reports having black stools. Stool for occult blood was positive. GI following. Hemoglobin 8.4. Denies any chest pain. Denies any nausea or vomiting. 08/27/2016 patient still complaining of some epigastric abdominal pain with chest pains. They're the same pains that she is been dealing with. She was also having some difficulty swallowing. She was evaluated by speech therapy and they have adjusted her diet to thickened liquids. She reports having formed regular stools. Denies any nausea or vomiting. Decrease in appetite. Objective - Vital Signs Vital signs: Vital Signs Temp 97.2 F L 08/27/16 07:00 Pulse 64 08/27/16 12:21 Resp 17 08/27/16 07:00 BP 111/51 08/27/16 07:00 Pulse Ox 94 L 08/27/16 08:02 Intake & Output 08/26/16 08/27/16 08/27/16 18:59 06:59 18:59 Intake Total 100 Output Total 1600 1400 Balance -1500 -1400 Intake: Intake, IV Titration 100 Amount Sodium Ferric Gluconat- 100 Sucrose 125 mg In Sodium Chloride 0.9% 100 ml @ 100 mls/hr IVPB ONCE ONE Rx#:[id number] Output: Urine 1000 1400 Stool 600 0 Other: Voiding Method Indwelling Catheter Indwelling Catheter Indwelling Catheter # Bowel Movements 0 - Exam Head normocephalic Neck supple Lungs diminished bilaterally. Crackles at bases Heart regular rate and rhythm S1-S2, no rub or gallop positive murmur. Tenderness with palpation of chest wall Abdomen is soft nondistended positive bowel sounds epigastric tenderness Extremities no edema Neuro awake and alert eating breakfast - Labs CBC & Chem 7: 08/27/16 09:31 08/27/16 09:31 Labs: Abnormal Lab Results - Last 24 Hours (Table) 08/26/16 08/26/16 08/27/16 Range/Units 16:56 20:54 07:16 RBC (3.80-5.40) m/uL Hgb (11.4-16.0) gm/dL Hct (34.0-46.0) % MCHC (31.0-37.0) g/dL Plt Count (150-450) k/uL Lymphocytes # (1.0-4.8) k/uL Potassium (3.5-5.1) mmol/L BUN (7-17) mg/dL Creatinine (0.52-1.04) mg/dL Glucose (74-99) mg/dL POC Glucose (mg/dL) 134 H 183 H 173 H (75-99) mg/dL Total Protein (6.3-8.2) g/dL Albumin (3.5-5.0) g/dL 08/27/16 08/27/16 08/27/16 Range/Units 09:31 09:31 12:28 RBC 2.83 L (3.80-5.40) m/uL Hgb 7.8 L (11.4-16.0) gm/dL Hct 25.9 L (34.0-46.0) % MCHC 30.3 L (31.0-37.0) g/dL Plt Count 460 H (150-450) k/uL Lymphocytes # 0.7 L (1.0-4.8) k/uL Potassium 3.4 L (3.5-5.1) mmol/L BUN 49 H (7-17) mg/dL Creatinine 1.33 H (0.52-1.04) mg/dL Glucose 150 H (74-99) mg/dL POC Glucose (mg/dL) 155 H (75-99) mg/dL Total Protein 5.0 L (6.3-8.2) g/dL Albumin 2.6 L (3.5-5.0) g/dL Assessment and Plan Plan: #1 acute Non-ST segment elevation myocardial infarction. Evaluated by cardiology during this admission, no intervention recommended so far #2 Anemia, suspect possible GI bleed in a patient with recent EGD in May 2016, and last colonoscopy 2010. Gastroenterology following. Stool for occult blood positive. Continue Protonix. Discussed with GI service. If patient becomes symptomatic and having evidence of active bleeding they may proceed with a capsule endoscopy. Hemoglobin 7.8 #3 sepsis and bacteremia with MSSA likely secondary to left humerus osteomyelitis. Infectious diseases recommending cefazolin 2 g for 6 to 8 weeks weeks #4 UTI. Urine culture no growth #5 Acute exacerbation of diastolic congestive heart failure. Continue IV Lasix. Pulmonary following ordered chest ultrasound to review of possible thoracentesis needed #6 Hyperlipidemia. #7 Diabetes mellitus. #8 essential Hypertension. #9 History of coronary artery disease with previous coronary artery bypass grafting. #10 Left upper extremity pain secondary to recent left humeral fracture. #11 Valvular heart disease with severe aortic stenosis, moderate to severe mitral regurgitation, moderate to severe pulmonary hypertension. #12 Acute kidney injury secondary to hypotension and hypoprofusion. Nephrology following # 13 coagulopathy resolved not on any anticoagulation #14 hypokalemia patient receiving potassium supplement GI prophylaxis IV Protonix. Continue SCDs I performed an examination of the patient and discussed their management with the physician Fruit Peeler. I have reviewed the Physician Fruit Peeler's notes and agree with the documented findings and plan of care
[2016-08-27] MEDS: HYDROmorphone 1 MG/ML 1 ML SYRINGE IVP PRN ×2 (14:58→23:57)
--- NOTE | 2016-08-27 15:13 | US ---
EXAMINATION TYPE: US chest DATE OF EXAM: 08/27/2016 2:52 PM COMPARISON: CXR CLINICAL HISTORY: bilat pleural effusions. Effusions EXAM MEASUREMENTS: Right Pleural Effusion fluid pocket: 9.2 cm Right skin to fluid thickness: 4.3 cm Left Pleural Effusion fluid pocket: 5.8 cm Left skin to fluid thickness: 4.8 cm IMPRESSIONS: Right side marked for possible thoracentesis outside the dept. Left side marked for possible thoracentesis outside the dept. Pulmonologists are able to review the images in the patient?s EMR.
[2016-08-27 15:15] LABS: Erythrocyte Sedimentation Rate 93 mm/hr (0-20)
[2016-08-27 17:26] LABS: Glucose,Whole Blood 111 mg/dL (75-99)
[2016-08-27 20:34] LABS: Glucose,Whole Blood 157 mg/dL (75-99)
[2016-08-27] MEDS: FENOFIBRATE 160 MG TAB PO SCH (21:59)
[2016-08-27] MEDS: CHOLECALCIFEROL 1,000 UNIT TAB PO SCH (21:59)
[2016-08-27] MEDS: ATORVASTATIN 40 MG TAB PO SCH (22:00)
[2016-08-27] MEDS: MULTIVITAMINS, THERA 1 EACH TAB PO SCH (22:00)
[2016-08-27] MEDS: SERTRALINE 100 MG TAB PO SCH (22:00)
[2016-08-27] MEDS: MELATONIN 5 MG TABLET PO SCH (22:00)
[2016-08-27] MEDS: DONEPEZIL 10 MG TAB PO SCH (22:00)
[2016-08-28 07:23] LABS: Glucose,Whole Blood 141 mg/dL (75-99)
[2016-08-28] MEDS: POLYETHYLENE GLYCOL 3350 17 GM POWD.PACK PO SCH (08:12)
[2016-08-28] MEDS: INSULIN LISPRO (humaLOG) 300 UNIT/3 ML VIAL SQ SCH ×4 (08:12→22:38)
[2016-08-28] MEDS: PANTOPRAZOLE 40 MG TABLET PO SCH (08:12)
[2016-08-28] MEDS: FUROSEMIDE 10 MG/ML 4 ML VIAL IV SCH ×2 (08:12→22:22)
[2016-08-28] MEDS: DOCUSATE 100 MG CAP PO SCH (08:13)
[2016-08-28] MEDS: EZETIMIBE 10 MG TAB PO SCH (08:13)
[2016-08-28] MEDS: METOPROLOL TARTRATE 25 MG TAB PO SCH ×2 (08:14→22:22)
[2016-08-28] MEDS: ceFAZolin 2 GM in SODIUM CHLORIDE 0.9% 100 ML IVPB SCH ×2 (08:14→22:21)
[2016-08-28] MEDS: ISOSORBIDE MONONITRATE ER 30 MG TAB.ER.24H PO SCH (08:14)
[2016-08-28 08:22] LABS: Basophils % (A) 0 %; CH 26.5; CHCM 29.8; Eosinophils # (A) 0.2 k/uL (0-0.7); Eosinophils % (A) 2 %; HCT 25.6 % (34.0-46.0); HDW 3.82; HGB 7.8 gm/dL (11.4-16.0); Hypochromasia Marked; Luc # (Auto) 0.13; Luc % (Auto) 2; Lymphocytes # (A) 0.9 k/uL (1.0-4.8); Lymphocytes % (A) 10 %; MCH 27.2 pg (25.0-35.0); MCHC 30.7 g/dL (31.0-37.0); MCV 88.8 fL (80.0-100.0); Monocytes # (A) 0.4 k/uL (0-1.0); Monocytes % (A) 5 %; Neutrophils # (A) 7.2 k/uL (1.3-7.7); Neutrophils % (A) 81 %; Poikilocytosis Slight; RBC 2.88 m/uL (3.80-5.40); RDW 15.3 % (11.5-15.5); WBC 8.8 k/uL (3.8-10.6); WBC (Perox) 8.99
[2016-08-28] MEDS: ONDANSETRON 4 MG/2 ML VIAL IVP PRN (08:23)
[2016-08-28] MEDS: HYDROcodone/APAP 5-325MG 1 EACH TAB PO PRN (08:24)
[2016-08-28] MEDS: ALPRAZolam 0.25 MG TAB PO PRN ×2 (08:24→14:16)
--- NOTE | 2016-08-28 08:40 | PN ---
DATE OF SERVICE: 08/27/2016 Reason for follow-up is MSSA bacteremia with left humerus osteo. INTERVAL HISTORY: The patient is afebrile. She seemed to be slightly more awake, alert, breathing comfortably. Denies significant chest pain, occasional cough. No abdominal pain. No diarrhea. On examination, blood pressure 124/58 with a pulse of 60, temperature 98. She is 96% on 2-L nasal cannula. General description is an elderly female, lying in bed in no distress. RESPIRATORY SYSTEM: Unlabored breathing. Clear to auscultation. HEART: S1, S2. Regular rate and rhythm. ABDOMEN: Soft, no tenderness. LABS: Hemoglobin is 7.6, white count 7.6. BUN of 14. Creatinine is 1.33. Sed rate 93. DIAGNOSTIC IMPRESSION AND PLAN: Patient with Methicillin-sensitive Staphylococcus aureus bacteremia. 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 Follow-up blood culture 08/16 has been negative. Patient at this time will continue with cefazolin 2 grams q.8 for 6 weeks with monitoring of blood work. Continue supportive care. MTDD
[2016-08-28 08:43] LABS: Calcium 8.6 mg/dL (8.4-10.2); Magnesium 1.8 mg/dL (1.6-2.3); Total Bilirubin 0.5 mg/dL (0.2-1.3); Total Protein 5.3 g/dL (6.3-8.2)
[2016-08-28 08:47] LABS: Potassium 4.1 mmol/L (3.5-5.1)
--- NOTE | 2016-08-28 08:56 | P.PN ---
Subjective Patient is seen in follow-up for acute kidney injury. Her baseline creatinine is 1 and peaked at 2.29 this admission. It is down to 1.11 today. 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 There was concern for endocarditis and she underwent a CLARIBEL which revealed no vegetations however she does have severe aortic stenosis, moderate to severe mitral regurgitation and pulmonary hypertension. She is nonoliguric. Hemoglobin was down to 6.3 this admission for which she did receive blood transfusion. Hemoglobin 7.8 this morning. She has been refusing a colonoscopy/EGD. No active bleeding. She does admit to dyspnea and and is maintained on Lasix 40 mg IV twice daily. She did have an episode of vomiting this morning. Vital signs are stable. General: The patient appeared well nourished and normally developed. HEENT: Head exam is unremarkable. Neck is without jugular venous distension. LUNGS: Lungs are clear to auscultation and percussion. Breath sounds decreased. HEART: Rate and Rhythm are regular. First and second heart sounds normal. No murmurs, rubs or gallops. ABDOMEN: Abdominal exam reveals normal bowel sounds. Non-tender and non- distended. No evidence of peritonitis. EXTREMITITES: No clubbing, cyanosis, or edema. Objective - Vital Signs Vital signs: Vital Signs Temp 96.8 F L 08/28/16 07:32 Pulse 66 08/28/16 07:32 Resp 19 08/28/16 07:32 BP 143/66 08/28/16 07:32 Pulse Ox 99 08/28/16 07:32 Intake & Output 08/27/16 08/28/16 08/28/16 18:59 06:59 18:59 Output Total 1200 1150 Balance -1200 -1150 Weight 79 kg Output: Urine 1200 1150 Other: Voiding Method Indwelling Catheter Indwelling Catheter # Voids 1 # Bowel Movements 1 - Labs CBC & Chem 7: 08/28/16 08:02 08/28/16 08:02 Labs: Abnormal Lab Results - Last 24 Hours (Table) 08/27/16 08/27/16 08/27/16 Range/Units 09:31 09:31 12:28 RBC 2.83 L (3.80-5.40) m/uL Hgb 7.8 L (11.4-16.0) gm/dL Hct 25.9 L (34.0-46.0) % MCHC 30.3 L (31.0-37.0) g/dL Plt Count 460 H (150-450) k/uL Lymphocytes # 0.7 L (1.0-4.8) k/uL ESR 93 H (0-20) mm/hr Potassium 3.4 L (3.5-5.1) mmol/L BUN 49 H (7-17) mg/dL Creatinine 1.33 H (0.52-1.04) mg/dL Glucose 150 H (74-99) mg/dL POC Glucose (mg/dL) 155 H (75-99) mg/dL Total Protein 5.0 L (6.3-8.2) g/dL Albumin 2.6 L (3.5-5.0) g/dL 08/27/16 08/27/16 08/28/16 Range/Units 17:14 20:19 07:22 RBC (3.80-5.40) m/uL Hgb (11.4-16.0) gm/dL Hct (34.0-46.0) % MCHC (31.0-37.0) g/dL Plt Count (150-450) k/uL Lymphocytes # (1.0-4.8) k/uL ESR (0-20) mm/hr Potassium (3.5-5.1) mmol/L BUN (7-17) mg/dL Creatinine (0.52-1.04) mg/dL Glucose (74-99) mg/dL POC Glucose (mg/dL) 111 H 157 H 141 H (75-99) mg/dL Total Protein (6.3-8.2) g/dL Albumin (3.5-5.0) g/dL 08/28/16 08/28/16 Range/Units 08:02 08:02 RBC 2.88 L (3.80-5.40) m/uL Hgb 7.8 L (11.4-16.0) gm/dL Hct 25.6 L (34.0-46.0) % MCHC 30.7 L (31.0-37.0) g/dL Plt Count (150-450) k/uL Lymphocytes # 0.9 L (1.0-4.8) k/uL ESR (0-20) mm/hr Potassium (3.5-5.1) mmol/L BUN 46 H (7-17) mg/dL Creatinine 1.11 H (0.52-1.04) mg/dL Glucose 130 H (74-99) mg/dL POC Glucose (mg/dL) (75-99) mg/dL Total Protein 5.3 L (6.3-8.2) g/dL Albumin 2.7 L (3.5-5.0) g/dL Assessment and Plan Plan: Assessment: #1. Nonoliguric acute kidney injury secondary to ischemic ATN secondary to severe sepsis and anemia. Also being diuresed. Creatinine down to 1.11 today. Urinalysis noted to be benign. #2. Volume overload as evidenced by vascular congestion on previous chest x- ray. #3. Severe aortic stenosis and moderate to severe mitral regurgitation. #4. Moderate to severe pulmonary hypertension. #5. 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 #6. Anemia due to underlying GI bleed. Apparently she's been refusing colonoscopy. Status post blood transfusion on August 21. Gastroenterology following. Potential capsule endoscopy as an outpatient. #7. Hypernatremia secondary to lack of oral water intake. Resolved. #8. Hypokalemia secondary to diuresis. Improved. Magnesium 1.8. Plan: Continue Lasix 40 mg IV twice daily. Avoid nephrotoxic agents and hypotensive episodes. Repeat electrolytes in the morning. Antibiotics per infectious disease recommendations. Monitor hemoglobin and transfuse as needed. Pulmonology following. Potential thoracentesis.
[2016-08-28] MEDS: IPRATROPIUM-ALBUTEROL 3 ML NEB INHALATION SCH ×4 (09:15→19:40)
--- NOTE | 2016-08-28 11:38 | P.PN ---
Subjective Principal diagnosis: Non ST elevation myocardial infarction, anemia 80-year-old female patient who initially presented on 08/13/2016 because of increased shortness of breath. The patient was ruled in for an acute non-ST segment elevation myocardial infarction. The patient is known to have coronary artery disease with previous bypass surgery. Other comorbid conditions include hypertension diabetes mellitus and hyperlipidemia and congestion heart failure. During this current hospitalization, the patient was also found to be septic with MRSA bacteremia, acute kidney injury secondary to acute ischemic trigger necrosis, sepsis, hypotension, pressor dependence, an acute transfusion reaction secondary to her packed RBC transfusion for which the patient was given for a low hemoglobin. The patient was also suspected to have a fracture of the left humerus. A CAT scan was done yesterday showed a comminuted fracture of the left humeral neck, and pathologic fracture was suspected with a concern of an underlying malignancy. There was soft tissue thickening in the area which could be related to edema post fracture or soft tissue mass. Note that I have seen this patient back in May 2016 for chest pain and suspected GI bleeding and back then was noted the patient sustained a fracture to her left humerus and this was being treated conservatively and she did not require any surgical intervention. The patient also is known to have history of syncope during which she did have had sustained the left humeral fracture, episodes of dysphagia, chronic anemia, small bowel obstruction related to a benign lesion of the intestine that was resected, chronic renal failure stage III kidney disease, CHF with diastolic dysfunction and ejection fraction of 55- 60%, aortic stenosis and previous coronary artery bypass surgery. On 08/17/2016 I'm seeing this patient in follow-up. The patient is resting comfortably in bed. The patient has no respiratory distress. Hemodynamically she is stable and the patient has been off dopamine for more than 12 hours. She is producing adequate amount of urine output. Her pulse ox is around 98% on 2 L of oxygen nasal cannula. She has a cardiac murmur which is related to aortic stenosis. As mentioned earlier, the patient had staph aureus Ammann MSSA and the blood, on 3 different blood cultures and the most recent blood cultures negative. For that reason, the patient was covered with cefazolin 2 g every 12 hours. Renal function is improving and creatinine is down to 1.5. Rest of the electrolytes show no major abnormalities. The patient continues to have a component of non-anion gap metabolic acidosis with a bicarb level of 18. The chest x-ray from admission showed evidence of any pneumonia. Echocardiogram from May 2016 showed a ejection fraction of 55-60% along with moderate degree of aortic stenosis. The patient is seen again today 08/18/2016 in follow-up on the regular medical floor. She is awake and alert in no acute distress. She did undergo transesophageal echocardiogram yesterday. There is no evidence of vegetation on any of the valves. There was noted severe aortic stenosis with moderate to severe mitral regurgitation and moderate to severe pulmonary hypertension. Today she denies any worsening shortness of breath. She is maintaining good O2 saturations in the mid 90s on 2 L/m per nasal cannula. She's been hemodynamically stable. She remains on cefazolin. Bicarb remains low at 18. She remains on sodium bicarbonate tablets. She remains in a negative balance. Creatinine improved to 1.50. Her hemoglobin is drifting down currently at 7.2. The patient is seen again today 08/19/2016 in follow-up on the regular medical floor. She is continuing to maintain O2 saturations in the 90s on 2 L/m. Nasal cannula. She is currently afebrile. No leukocytosis. Hemoglobin stable at 7.4. Bicarb is improved slightly at 20. Creatinine has recovered to 0.85. She did have a biopsy of the left shoulder results of which are pending. She still has significant discomfort in that shoulder. The patient was seen again today 08/21/2016 as she was now being transferred to the intensive care unit. She had developed recurrent GI bleeding. She had black tarry stools last night and a drop in her hemoglobin to 6.8. A repeat hemoglobin was 7.1 and then later today he was back to 6.3. She did have a previous reaction to a blood transfusion earlier this admission as well. Also noted was her INR 4.4. She did receive some vitamin K and it is currently 2.4. GI services and surgical services have been involved with her as well. Currently, she is seen resting fairly comfortable in bed. She is somewhat anxious due to her situation but denies any worsening shortness of breath, cough or congestion. No chest pain, no lightheadedness or dizziness. She is maintaining O2 saturations at 100% on 2 L/m per nasal cannula. She remains hemodynamically stable. Not requiring any pressor support. The patient is seen again today 08/22/2016 in the intensive care unit. She is awake and alert in no acute distress. She did receive a unit of transfer views packed red blood cells and her current hemoglobin is 8.4. INR 1.4. GI services are on the case and are she has not had any further black tarry stools considering EGD. The patient has continued to decline a colonoscopy. She has not had any further black tarry stools or hematoemesis. She continues on Protonix IV. Aspirate of the left shoulder did come back positive for methicillin sensitive Staphylococcus aureus in her blood cultures were also positive for MSSA. She has been maintained on cefazolin. She remains hemodynamically stable. She is maintaining good O2 saturations at 96% on room air. She is afebrile. Current creatinine 1.10. On 08/23/2016 the patient is on the medical floor. She is doing well. No specific complaints. No episodes of any GI bleeding. No fever or chills. No signs of septicemia. Still on IV cefazolin regarding MSSA bacteremia and possible osteomyelitis. No change in mental status. Hemoglobin is stable at 8.1. No nausea or vomiting. Tolerating diet. On 08/24/2016, patient is mostly complaining of slight nausea. No abdominal pain , no melena, no hematemesis, no evidence of GI bleeding, she is also complaining of slight shortness of breath. Remains on medications as noted for her MSSA bacteremia. Hemoglobin today is 8.4. Basic metabolic profile was reviewed, BUN is 53 creatinine is 1.17. The patient is seen again today 08/25/2016 in follow-up on the regular medical floor. She is awake and alert in no acute distress. She remains quite weak and mainly in bed at this point. She is maintaining good O2 saturations in the upper 90s on room air. She is afebrile. No further active bleeding documented. Current hemoglobin 8.2. White count 11.4. Creatinine 1.31. She remains on cefazolin for her MSSA and both the blood and the bone aspirate. The patient seen again today 08/26/2016 in follow-up on the regular medical floor. She did have episode of shortness of breath yesterday afternoon. A chest x-ray was consistent with congestive heart failure but not significantly worse as compared to previous. She is on Lasix 40 mg IV every 12 hours. Her renal function is about the same current creatinine 1.27. BUN 52. He remains on bicarb 650 mg twice a day. Her hemoglobin is 7.9 today. There are no plans for EGD/colonoscopy as the patient has continued to decline them as offered by GI services. He has been afebrile. Hemodynamically stable. Maintaining good O2 saturations in the 90s on room air. She remains on cefazolin for the MSSA bacteremia and left shoulder aspirate. A PICC line was placed yesterday. The patient is seen again today 08/27/2016 in follow-up in the regular medical floor. Her chest x-ray does continue to show evidence of congestive heart failure and some small pleural effusions. She is still requiring 2 L/m per nasal cannula to maintain O2 saturations in the 90s. We'll plan to do an ultrasound of the chest to determine if there is enough fluid for thoracentesis today. The patient is seen again today 08/28/2016 in follow-up on the regular medical floor. She is awake and alert in no acute distress. Her main complaint is that of nausea. No worsening shortness of breath, cough or congestion. She is dyspneic on minimal exertion however. Ultrasound of the chest did reveal a 9.2 cm pocket of fluid on the right and a 5.8 cm pocket of fluid on the left. We' ll plan for right sided thoracentesis today. The patient and her family at the bedside are agreeable. She is maintaining good O2 saturations in the high 90s on 2 L/m per nasal cannula. She's been hemodynamically stable. Current hemoglobin 7.8. Objective - Vital Signs Vital signs: Vital Signs Temp 96.8 F L 08/28/16 07:32 Pulse 66 08/28/16 07:32 Resp 19 08/28/16 07:32 BP 143/66 08/28/16 07:32 Pulse Ox 99 08/28/16 07:32 Intake & Output 08/27/16 08/28/16 08/28/16 18:59 06:59 18:59 Intake Total 100 Output Total 1200 1150 Balance -1200 -1150 100 Weight 79 kg Intake: Intake, IV Titration 100 Amount ceFAZolin 2 gm In Sodium 100 Chloride 0.9% 100 ml @ 100 mls/hr IVPB Q12HR [facility] Rx#:[id number] Output: Urine 1200 1150 Other: Voiding Method Indwelling Catheter Indwelling Catheter # Voids 1 # Bowel Movements 1 1 - Exam GENERAL EXAM: Weak, pale. EYES: Normal reaction of pupils, equal size. NOSE: Clear with pink turbinates. THROAT: No erythema or exudates. NECK: No masses, no JVD. CHEST: No chest wall deformity. LUNGS: Equal air entry with crackles in the posterior bases more so on the left. CVS: S1 and S2 normal with an audible murmur, regular rhythm. ABDOMEN: No hepatosplenomegaly, normal bowel sounds, no guarding or rigidity. Extremities: There is 1+ peripheral edema. No clubbing, no cyanosis. Peripheral pulses are intact. - Labs CBC & Chem 7: 08/28/16 08:02 08/28/16 08:02 Labs: Abnormal Lab Results - Last 24 Hours (Table) 08/27/16 08/27/16 08/27/16 Range/Units 09:31 12:28 17:14 RBC (3.80-5.40) m/uL Hgb (11.4-16.0) gm/dL Hct (34.0-46.0) % MCHC (31.0-37.0) g/dL Lymphocytes # (1.0-4.8) k/uL ESR 93 H (0-20) mm/hr BUN (7-17) mg/dL Creatinine (0.52-1.04) mg/dL Glucose (74-99) mg/dL POC Glucose (mg/dL) 155 H 111 H (75-99) mg/dL Total Protein (6.3-8.2) g/dL Albumin (3.5-5.0) g/dL 08/27/16 08/28/16 08/28/16 Range/Units 20:19 07:22 08:02 RBC 2.88 L (3.80-5.40) m/uL Hgb 7.8 L (11.4-16.0) gm/dL Hct 25.6 L (34.0-46.0) % MCHC 30.7 L (31.0-37.0) g/dL Lymphocytes # 0.9 L (1.0-4.8) k/uL ESR (0-20) mm/hr BUN (7-17) mg/dL Creatinine (0.52-1.04) mg/dL Glucose (74-99) mg/dL POC Glucose (mg/dL) 157 H 141 H (75-99) mg/dL Total Protein (6.3-8.2) g/dL Albumin (3.5-5.0) g/dL 08/28/16 Range/Units 08:02 RBC (3.80-5.40) m/uL Hgb (11.4-16.0) gm/dL Hct (34.0-46.0) % MCHC (31.0-37.0) g/dL Lymphocytes # (1.0-4.8) k/uL ESR (0-20) mm/hr BUN 46 H (7-17) mg/dL Creatinine 1.11 H (0.52-1.04) mg/dL Glucose 130 H (74-99) mg/dL POC Glucose (mg/dL) (75-99) mg/dL Total Protein 5.3 L (6.3-8.2) g/dL Albumin 2.7 L (3.5-5.0) g/dL Assessment and Plan Plan: Impression: #1 Non-ST segment elevation myocardial infarction. #2 Anemia, with recurrent bleeding. Status post 2 units of red blood cells. Current hemoglobin 7.8. GI services are on the case. #3 Sepsis secondary to Methicillin Sensitive Staphylococcus aureus in both the blood and left shoulder aspirate. #4 Febrile illness secondary to above and suspected urinary tract infection as well. #5 Acute exacerbation of diastolic congestive heart failure. #6 Hyperlipidemia. #7 Diabetes mellitus. #8 Hypertension. #9 History of coronary artery disease with previous coronary artery bypass grafting. #10 Left upper extremity pain secondary to recent left humeral fracture. Aspirate is positive for MSSA. #11 Valvular heart disease with severe aortic stenosis, moderate to severe mitral regurgitation, moderate to severe pulmonary hypertension. #12 Acute kidney injury secondary to hypotension/hypo-profusion. Current creatinine 1.11. #13 Poor overall functional performance based on the above-mentioned multiple comorbidities. Plan: The patient was seen and evaluated by Dr. Hardy. The ultrasound of the chest was reviewed. We'll plan for a right-sided thoracentesis today. In the interim we'll continue with her current medications. We'll continue to follow.
[2016-08-28 12:11] LABS: Glucose,Whole Blood 187 mg/dL (75-99)
--- NOTE | 2016-08-28 12:18 | P.PN ---
Subjective This is a 80-year-old female, patient of [facility]. She has a known past medical history of myocardial infarction and three-vessel coronary artery bypass graft, coronary artery disease, hyperlipidemia, hypertension, diabetes, chronic kidney disease and dementia. Also history of anemia with recent EGD and May 2016 revealing gastritis colonoscopy was several years ago. She presents to the hospital with complaints of chest pain, abdominal pain , black stools with episodes of diarrhea. She's found have evidence of a non- ST elevated [place]. Not able to be on aspirin or IV heparin at this time due to her significant anemia. Patient is found to have a UTI as well as positive blood cultures growing presumptive staph aureus. She currently on vancomycin and Rocephin. She still complaining of some abdominal pain. Also having some shortness of breath. Hemoglobin is 7.1 today she'll get receive 1 unit of blood. Creatinine has jumped up to 2.24. Nephrology will be consulted Lasix and lisinopril are on hold. 08/17/2016 patient currently in the ICU. She had a reaction to blood transfusion on Wednesday. Hemoglobin is 7.2. She is having stools. Loose but not dark and no blood present. She is still complaining of some belly pain. Left arm is in sling. She has been off of the dopamine since yesterday. She is followed by multiple consulting physicians. Continue to monitor closely. The planning on transferring her to the sixth floor this afternoon. 08/20/2016 patient still complaining of some chest pain and abdominal pain. Yesterday she was sent to the telemetry floor due to chest pain. Troponin slightly elevated 0.318 but improved since admission. Cardiology has been reconsulted. Patient reports having bowel movements, denies any nausea vomiting. Denies any difficulty with urinating. 08/24/2016 patient reports being more short of breath today. Chest x-ray did show evidence of fluid congestion and possible CHF. Nephrology ordered 1 dose of IV Lasix. Patient reports having black stools. Stool for occult blood was positive. GI following. Hemoglobin 8.4. Denies any chest pain. Denies any nausea or vomiting. 08/27/2016 patient still complaining of some epigastric abdominal pain with chest pains. They're the same pains that she is been dealing with. She was also having some difficulty swallowing. She was evaluated by speech therapy and they have adjusted her diet to thickened liquids. She reports having formed regular stools. Denies any nausea or vomiting. Decrease in appetite. 08/28/2016 patient lying in bed still complaining of epigastric abdominal pain and some chest pain. She'll be trying to work with physical therapy this morning. She was found to have evidence of bilateral pleural effusion's noted on chest ultrasound. And she will be undergoing a right-sided thoracentesis this afternoon. Patient is evaluated by speech therapy and she is scheduled for modified barium swallow study later today. Patient denies any vomiting. She did have a brown stool today. Denies any difficulty urinating. Case discussed with granddaughter at bedside Objective - Vital Signs Vital signs: Vital Signs Temp 96.8 F L 08/28/16 07:32 Pulse 66 08/28/16 07:32 Resp 19 08/28/16 07:32 BP 143/66 08/28/16 07:32 Pulse Ox 99 08/28/16 07:32 Intake & Output 08/27/16 08/28/16 08/28/16 18:59 06:59 18:59 Intake Total 100 Output Total 1200 1150 Balance -1200 -1150 100 Weight 79 kg Intake: Intake, IV Titration 100 Amount ceFAZolin 2 gm In Sodium 100 Chloride 0.9% 100 ml @ 100 mls/hr IVPB Q12HR [facility] Rx#:[id number] Output: Urine 1200 1150 Other: Voiding Method Indwelling Catheter Indwelling Catheter # Voids 1 # Bowel Movements 1 1 - Exam Head normocephalic Neck supple Lungs diminished bilaterally. Crackles at bases Heart regular rate and rhythm S1-S2, no rub or gallop positive murmur. Tenderness with palpation of chest wall Abdomen is soft nondistended positive bowel sounds epigastric tenderness Extremities no edema Neuro awake and alert eating breakfast - Labs CBC & Chem 7: 08/28/16 08:02 08/28/16 08:02 Labs: Abnormal Lab Results - Last 24 Hours (Table) 08/27/16 08/27/16 08/27/16 Range/Units 09:31 12:28 17:14 RBC (3.80-5.40) m/uL Hgb (11.4-16.0) gm/dL Hct (34.0-46.0) % MCHC (31.0-37.0) g/dL Lymphocytes # (1.0-4.8) k/uL ESR 93 H (0-20) mm/hr BUN (7-17) mg/dL Creatinine (0.52-1.04) mg/dL Glucose (74-99) mg/dL POC Glucose (mg/dL) 155 H 111 H (75-99) mg/dL Total Protein (6.3-8.2) g/dL Albumin (3.5-5.0) g/dL 08/27/16 08/28/16 08/28/16 Range/Units 20:19 07:22 08:02 RBC 2.88 L (3.80-5.40) m/uL Hgb 7.8 L (11.4-16.0) gm/dL Hct 25.6 L (34.0-46.0) % MCHC 30.7 L (31.0-37.0) g/dL Lymphocytes # 0.9 L (1.0-4.8) k/uL ESR (0-20) mm/hr BUN (7-17) mg/dL Creatinine (0.52-1.04) mg/dL Glucose (74-99) mg/dL POC Glucose (mg/dL) 157 H 141 H (75-99) mg/dL Total Protein (6.3-8.2) g/dL Albumin (3.5-5.0) g/dL 08/28/16 08/28/16 Range/Units 08:02 12:09 RBC (3.80-5.40) m/uL Hgb (11.4-16.0) gm/dL Hct (34.0-46.0) % MCHC (31.0-37.0) g/dL Lymphocytes # (1.0-4.8) k/uL ESR (0-20) mm/hr BUN 46 H (7-17) mg/dL Creatinine 1.11 H (0.52-1.04) mg/dL Glucose 130 H (74-99) mg/dL POC Glucose (mg/dL) 187 H (75-99) mg/dL Total Protein 5.3 L (6.3-8.2) g/dL Albumin 2.7 L (3.5-5.0) g/dL Assessment and Plan Plan: #1 acute Non-ST segment elevation myocardial infarction. Evaluated by cardiology during this admission, no intervention recommended so far #2 Anemia, suspect possible GI bleed in a patient with recent EGD in May 2016, and last colonoscopy 2010. Gastroenterology following. Stool for occult blood positive. Continue Protonix. Discussed with GI service. If patient becomes symptomatic and having evidence of active bleeding they may proceed with a capsule endoscopy. 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 Infectious diseases recommending cefazolin 2 g for 6 to 8 weeks weeks #4 UTI. Urine culture no growth #5 Acute exacerbation of diastolic congestive heart failure. Continue IV Lasix. Pulmonary following ordered chest ultrasound to review of possible thoracentesis needed #6 Hyperlipidemia. #7 Diabetes mellitus. #8 essential Hypertension. #9 History of coronary artery disease with previous coronary artery bypass grafting. #10 Left upper extremity pain secondary to recent left humeral fracture. #11 Valvular heart disease with severe aortic stenosis, moderate to severe mitral regurgitation, moderate to severe pulmonary hypertension. #12 Acute kidney injury secondary to hypotension and hypoprofusion. Due to sepsis and anemia. Nephrology following. Creatinine is showing improvement down to 1.11 # 13 coagulopathy resolved not on any anticoagulation #14 hypokalemia patient receiving potassium supplement #15 right sided pleural effusion patient scheduled for thoracentesis today #16 dysphagia: evaluated by speech therapy scheduled for modified barium swallow GI prophylaxis IV Protonix. Continue SCDs I performed an examination of the patient and discussed their management with the physician Logistics Tech. I have reviewed the Physician Logistics Tech's notes and agree with the documented findings and plan of care
--- NOTE | 2016-08-28 12:32 | XR ---
EXAMINATION TYPE: XR chest 1V portable DATE OF EXAM: 08/28/2016 12:26 PM COMPARISON: Prior chest x-ray 27 Aug 2016 HISTORY: Status post right thoracentesis TECHNIQUE: Single frontal view of the chest is obtained. FINDINGS: There is interval improved aeration at the right lung base. Right-sided PICC line is again noted. No pneumothorax. Patient is post median sternotomy and the heart is enlarged. Left lower lobe atelectasis versus pneumonia or edema and associated effusion persists. IMPRESSION: No evident complication status post right thoracentesis
--- NOTE | 2016-08-28 12:37 | PCN ---
DATE OF PROCEDURE: OPERATIVE REPORT: Right-sided thoracentesis. PREOPERATIVE DIAGNOSIS: Large right pleural effusion. POSTOPERATIVE DIAGNOSIS: Large right pleural effusion. ANESTHESIA USED: 2 mL of 1% lidocaine. PROCEDURE: Patient was placed in the sitting upright position. The area below the right scapula was prepared in a sterile fashion and drapes were applied. The area of the fluid was earlier localized by ultrasound guidance. At the level of the eighth intercostal space and tip of the scapula, the area was locally anesthetized, and a 26-gauge needle was inserted, advanced into the pleural space until the fluid was localized with the needle. Then a stab wound was made in that area of the skin with a size 11 scalpel and then a thoracentesis catheter and needle were used, inserted at the same site, advanced into the pleural space and as soon as the fluid was obtained. The needle was pulled out of the pleural space, and the catheter was advanced further. Freely flowing fluid which was nba in color, 1200 mL of fluid drained, nonbloody, felt to be transudative in nature. Fluid was sent for different diagnostic studies. No evidence of any immediate complications. Chest x-ray was ordered postoperatively.
[2016-08-28] MEDS: HYDROmorphone 1 MG/ML 1 ML SYRINGE IVP PRN (14:15)
[2016-08-28 17:17] LABS: Glucose,Whole Blood 154 mg/dL (75-99)
[2016-08-28 20:10] LABS: LDH, Body Fluid Source Pleural Fluid; T. Protein, Body Fluid Source Pleural Fluid; Total Protein, Body Fluid 1059 mg/dL
[2016-08-28 21:05] LABS: Glucose,Whole Blood 166 mg/dL (75-99)
[2016-08-28] MEDS: ATORVASTATIN 40 MG TAB PO SCH (22:22)
[2016-08-28] MEDS: SERTRALINE 100 MG TAB PO SCH (22:22)
[2016-08-28] MEDS: MELATONIN 5 MG TABLET PO SCH (22:22)
[2016-08-28] MEDS: DONEPEZIL 10 MG TAB PO SCH (22:23)
[2016-08-28] MEDS: CHOLECALCIFEROL 1,000 UNIT TAB PO SCH (22:23)
[2016-08-28] MEDS: FENOFIBRATE 160 MG TAB PO SCH (22:23)
[2016-08-28] MEDS: MULTIVITAMINS, THERA 1 EACH TAB PO SCH (22:23)
--- NOTE | 2016-08-28 22:25 | PN ---
DATE OF SERVICE: 08/28/2016 REASON FOR FOLLOWUP: MSSA bacteremia with left humerus osteomyelitis. INTERVAL HISTORY: The patient is afebrile. She did have thoracentesis done today by Pulmonary. Patient has tolerated the procedure and denies having any chest pain, shortness of breath, cough. No abdominal pain. No diarrhea. On examination, blood pressure 98/43 with a pulse of 60, temperature 96.9. She is 90% on 2 L nasal cannula. General description is an elderly female lying in bed in no distress. RESPIRATORY SYSTEM: Unlabored breathing. Clear to auscultation anteriorly. HEART: S1, S2. Regular rate and rhythm. ABDOMEN: Soft. No tenderness. EXTREMITIES: No edema of the feet. LABS: Hemoglobin is 7.8, white count 8.8. DIAGNOSTIC IMPRESSION AND PLAN: Patient with methicillin-susceptible Staphylococcus aureus bacteremia. Source is likely left humerus osteomyelitis. She is currently covered with cefazolin, did get a PICC line. Plan will be for at least 6 weeks of IV antibiotic therapy with close outpatient followup. Continue supportive care.
[2016-08-29] MEDS: HYDROcodone/APAP 5-325MG 1 EACH TAB PO PRN (06:40)
[2016-08-29 07:43] LABS: Glucose,Whole Blood 169 mg/dL (75-99)
[2016-08-29] MEDS: ceFAZolin 2 GM in SODIUM CHLORIDE 0.9% 100 ML IVPB SCH ×2 (07:58→22:00)
[2016-08-29] MEDS: INSULIN LISPRO (humaLOG) 300 UNIT/3 ML VIAL SQ SCH ×4 (07:59→22:01)
[2016-08-29] MEDS: ISOSORBIDE MONONITRATE ER 30 MG TAB.ER.24H PO SCH (07:59)
[2016-08-29] MEDS: FUROSEMIDE 10 MG/ML 4 ML VIAL IV SCH ×2 (07:59→22:00)
[2016-08-29] MEDS: EZETIMIBE 10 MG TAB PO SCH (07:59)
[2016-08-29] MEDS: DOCUSATE 100 MG CAP PO SCH (07:59)
[2016-08-29] MEDS: POLYETHYLENE GLYCOL 3350 17 GM POWD.PACK PO SCH (08:00)
[2016-08-29] MEDS: PANTOPRAZOLE 40 MG TABLET PO SCH (08:00)
[2016-08-29] MEDS: METOPROLOL TARTRATE 25 MG TAB PO SCH ×2 (08:00→22:01)
[2016-08-29] MEDS: IPRATROPIUM-ALBUTEROL 3 ML NEB INHALATION SCH ×4 (08:06→19:11)
[2016-08-29 08:10] LABS: Basophils % (A) 0 %; CH 26.3; CHCM 29.4; Eosinophils # (A) 0.1 k/uL (0-0.7); Eosinophils % (A) 2 %; HCT 23.3 % (34.0-46.0); HDW 3.73; Hypochromasia Marked; Luc # (Auto) 0.15; Luc % (Auto) 2; Lymphocytes % (A) 12 %; MCH 26.9 pg (25.0-35.0); MCHC 30.1 g/dL (31.0-37.0); MCV 89.3 fL (80.0-100.0); Mean Platelet Volume 6.7; Monocytes # (A) 0.5 k/uL (0-1.0); Monocytes % (A) 6 %; Neutrophils # (A) 6.5 k/uL (1.3-7.7); Neutrophils % (A) 79 %; Poikilocytosis Slight; RBC 2.61 m/uL (3.80-5.40); RDW 15.5 % (11.5-15.5); WBC 8.3 k/uL (3.8-10.6); WBC (Perox) 6.64
[2016-08-29 08:12] LABS: Anion Gap 8 mmol/L; Blood Urea Nitrogen 45 mg/dL (7-17); Calcium 8.6 mg/dL (8.4-10.2); Carbon Dioxide 30 mmol/L (22-30); Chloride 101 mmol/L (98-107); Glucose 140 mg/dL (74-99); Magnesium 1.6 mg/dL (1.6-2.3); Non-African American GFR(MDRD) 53 (>60 ml/min/1.73 sqM); Potassium 3.9 mmol/L (3.5-5.1); Sodium 139 mmol/L (137-145)
--- NOTE | 2016-08-29 11:17 | P.PN ---
Subjective Principal diagnosis: Non ST elevation myocardial infarction, anemia 80-year-old female patient who initially presented on 08/13/2016 because of increased shortness of breath. The patient was ruled in for an acute non-ST segment elevation myocardial infarction. The patient is known to have coronary artery disease with previous bypass surgery. Other comorbid conditions include hypertension diabetes mellitus and hyperlipidemia and congestion heart failure. During this current hospitalization, the patient was also found to be septic with MRSA bacteremia, acute kidney injury secondary to acute ischemic trigger necrosis, sepsis, hypotension, pressor dependence, an acute transfusion reaction secondary to her packed RBC transfusion for which the patient was given for a low hemoglobin. The patient was also suspected to have a fracture of the left humerus. A CAT scan was done yesterday showed a comminuted fracture of the left humeral neck, and pathologic fracture was suspected with a concern of an underlying malignancy. There was soft tissue thickening in the area which could be related to edema post fracture or soft tissue mass. Note that I have seen this patient back in May 2016 for chest pain and suspected GI bleeding and back then was noted the patient sustained a fracture to her left humerus and this was being treated conservatively and she did not require any surgical intervention. The patient also is known to have history of syncope during which she did have had sustained the left humeral fracture, episodes of dysphagia, chronic anemia, small bowel obstruction related to a benign lesion of the intestine that was resected, chronic renal failure stage III kidney disease, CHF with diastolic dysfunction and ejection fraction of 55- 60%, aortic stenosis and previous coronary artery bypass surgery. On 08/17/2016 I'm seeing this patient in follow-up. The patient is resting comfortably in bed. The patient has no respiratory distress. Hemodynamically she is stable and the patient has been off dopamine for more than 12 hours. She is producing adequate amount of urine output. Her pulse ox is around 98% on 2 L of oxygen nasal cannula. She has a cardiac murmur which is related to aortic stenosis. As mentioned earlier, the patient had staph aureus Ammann MSSA and the blood, on 3 different blood cultures and the most recent blood cultures negative. For that reason, the patient was covered with cefazolin 2 g every 12 hours. Renal function is improving and creatinine is down to 1.5. Rest of the electrolytes show no major abnormalities. The patient continues to have a component of non-anion gap metabolic acidosis with a bicarb level of 18. The chest x-ray from admission showed evidence of any pneumonia. Echocardiogram from May 2016 showed a ejection fraction of 55-60% along with moderate degree of aortic stenosis. The patient is seen again today 08/18/2016 in follow-up on the regular medical floor. She is awake and alert in no acute distress. She did undergo transesophageal echocardiogram yesterday. There is no evidence of vegetation on any of the valves. There was noted severe aortic stenosis with moderate to severe mitral regurgitation and moderate to severe pulmonary hypertension. Today she denies any worsening shortness of breath. She is maintaining good O2 saturations in the mid 90s on 2 L/m per nasal cannula. She's been hemodynamically stable. She remains on cefazolin. Bicarb remains low at 18. She remains on sodium bicarbonate tablets. She remains in a negative balance. Creatinine improved to 1.50. Her hemoglobin is drifting down currently at 7.2. The patient is seen again today 08/19/2016 in follow-up on the regular medical floor. She is continuing to maintain O2 saturations in the 90s on 2 L/m. Nasal cannula. She is currently afebrile. No leukocytosis. Hemoglobin stable at 7.4. Bicarb is improved slightly at 20. Creatinine has recovered to 0.85. She did have a biopsy of the left shoulder results of which are pending. She still has significant discomfort in that shoulder. The patient was seen again today 08/21/2016 as she was now being transferred to the intensive care unit. She had developed recurrent GI bleeding. She had black tarry stools last night and a drop in her hemoglobin to 6.8. A repeat hemoglobin was 7.1 and then later today he was back to 6.3. She did have a previous reaction to a blood transfusion earlier this admission as well. Also noted was her INR 4.4. She did receive some vitamin K and it is currently 2.4. GI services and surgical services have been involved with her as well. Currently, she is seen resting fairly comfortable in bed. She is somewhat anxious due to her situation but denies any worsening shortness of breath, cough or congestion. No chest pain, no lightheadedness or dizziness. She is maintaining O2 saturations at 100% on 2 L/m per nasal cannula. She remains hemodynamically stable. Not requiring any pressor support. The patient is seen again today 08/22/2016 in the intensive care unit. She is awake and alert in no acute distress. She did receive a unit of transfer views packed red blood cells and her current hemoglobin is 8.4. INR 1.4. GI services are on the case and are she has not had any further black tarry stools considering EGD. The patient has continued to decline a colonoscopy. She has not had any further black tarry stools or hematoemesis. She continues on Protonix IV. Aspirate of the left shoulder did come back positive for methicillin sensitive Staphylococcus aureus in her blood cultures were also positive for MSSA. She has been maintained on cefazolin. She remains hemodynamically stable. She is maintaining good O2 saturations at 96% on room air. She is afebrile. Current creatinine 1.10. On 08/23/2016 the patient is on the medical floor. She is doing well. No specific complaints. No episodes of any GI bleeding. No fever or chills. No signs of septicemia. Still on IV cefazolin regarding MSSA bacteremia and possible osteomyelitis. No change in mental status. Hemoglobin is stable at 8.1. No nausea or vomiting. Tolerating diet. On 08/24/2016, patient is mostly complaining of slight nausea. No abdominal pain , no melena, no hematemesis, no evidence of GI bleeding, she is also complaining of slight shortness of breath. Remains on medications as noted for her MSSA bacteremia. Hemoglobin today is 8.4. Basic metabolic profile was reviewed, BUN is 53 creatinine is 1.17. The patient is seen again today 08/25/2016 in follow-up on the regular medical floor. She is awake and alert in no acute distress. She remains quite weak and mainly in bed at this point. She is maintaining good O2 saturations in the upper 90s on room air. She is afebrile. No further active bleeding documented. Current hemoglobin 8.2. White count 11.4. Creatinine 1.31. She remains on cefazolin for her MSSA and both the blood and the bone aspirate. The patient seen again today 08/26/2016 in follow-up on the regular medical floor. She did have episode of shortness of breath yesterday afternoon. A chest x-ray was consistent with congestive heart failure but not significantly worse as compared to previous. She is on Lasix 40 mg IV every 12 hours. Her renal function is about the same current creatinine 1.27. BUN 52. He remains on bicarb 650 mg twice a day. Her hemoglobin is 7.9 today. There are no plans for EGD/colonoscopy as the patient has continued to decline them as offered by GI services. He has been afebrile. Hemodynamically stable. Maintaining good O2 saturations in the 90s on room air. She remains on cefazolin for the MSSA bacteremia and left shoulder aspirate. A PICC line was placed yesterday. The patient is seen again today 08/27/2016 in follow-up in the regular medical floor. Her chest x-ray does continue to show evidence of congestive heart failure and some small pleural effusions. She is still requiring 2 L/m per nasal cannula to maintain O2 saturations in the 90s. We'll plan to do an ultrasound of the chest to determine if there is enough fluid for thoracentesis today. The patient is seen again today 08/28/2016 in follow-up on the regular medical floor. She is awake and alert in no acute distress. Her main complaint is that of nausea. No worsening shortness of breath, cough or congestion. She is dyspneic on minimal exertion however. Ultrasound of the chest did reveal a 9.2 cm pocket of fluid on the right and a 5.8 cm pocket of fluid on the left. We' ll plan for right sided thoracentesis today. The patient and her family at the bedside are agreeable. She is maintaining good O2 saturations in the high 90s on 2 L/m per nasal cannula. She's been hemodynamically stable. Current hemoglobin 7.8. The patient is seen again today 08/29/2016 in follow-up on the regular medical floor. She is currently awake and alert in no acute distress. She is breathing slightly better today as compared to yesterday. She did have a thoracentesis performed with approximately 1.2 L of fluid removed. Fluid analysis is pending. Her chest x-ray did reveal significant improvement in the right lung pleural effusion however she continues with a moderate-sized left pleural effusion as well. We'll plan to perform a thoracentesis today. He is maintaining good O2 saturations in the high 90s on 2 L/m per nasal cannula. She is currently afebrile. Her hemoglobin continues to drift down currently at 7.0. No signs of active bleeding. Her renal function has improved to creatinine of 1.01. Objective - Vital Signs Vital signs: Vital Signs Temp 97.3 F L 08/29/16 07:00 Pulse 64 08/29/16 08:14 Resp 16 08/29/16 07:00 BP 124/65 08/29/16 07:00 Pulse Ox 99 08/29/16 07:00 Intake & Output 08/28/16 08/29/16 08/29/16 18:59 06:59 18:59 Intake Total 100 Output Total 2575 1550 Balance -0345 -1550 Weight 79 kg Intake: Intake, IV Titration 100 Amount ceFAZolin 2 gm In Sodium 100 Chloride 0.9% 100 ml @ 100 mls/hr IVPB Q12HR [facility] Rx#:[id number] Output: Urine 1375 1550 Stool 0 Other 1200 Other: Voiding Method Indwelling Catheter Indwelling Catheter Indwelling Catheter # Voids 1 1 # Bowel Movements 1 - Exam GENERAL EXAM: Weak, pale. EYES: Normal reaction of pupils, equal size. NOSE: Clear with pink turbinates. THROAT: No erythema or exudates. NECK: No masses, no JVD. CHEST: No chest wall deformity. LUNGS: Equal air entry with crackles in the posterior bases more so on the left. CVS: S1 and S2 normal with an audible murmur, regular rhythm. ABDOMEN: No hepatosplenomegaly, normal bowel sounds, no guarding or rigidity. Extremities: There is 1+ peripheral edema. No clubbing, no cyanosis. Peripheral pulses are intact. - Labs CBC & Chem 7: 08/29/16 07:23 08/29/16 07:23 Labs: Abnormal Lab Results - Last 24 Hours (Table) 08/28/16 08/28/16 08/28/16 Range/Units 12:09 17:15 21:03 RBC (3.80-5.40) m/uL Hgb (11.4-16.0) gm/dL Hct (34.0-46.0) % MCHC (31.0-37.0) g/dL BUN (7-17) mg/dL Glucose (74-99) mg/dL POC Glucose (mg/dL) 187 H 154 H 166 H (75-99) mg/dL 08/29/16 08/29/16 08/29/16 Range/Units 07:20 07:23 07:23 RBC 2.61 L (3.80-5.40) m/uL Hgb 7.0 L* (11.4-16.0) gm/dL Hct 23.3 L (34.0-46.0) % MCHC 30.1 L (31.0-37.0) g/dL BUN 45 H (7-17) mg/dL Glucose 140 H (74-99) mg/dL POC Glucose (mg/dL) 169 H (75-99) mg/dL Microbiology - Last 24 Hours (Table) 08/28/16 12:15 Gram Stain - Preliminary Pleural Fluid Body Fluid Culture - Preliminary Assessment and Plan Plan: Impression: #1 Non-ST segment elevation myocardial infarction. #2 Anemia, with recurrent bleeding. Status post 2 units of red blood cells. Current hemoglobin 7.0. GI services are on the case. #3 Sepsis secondary to Methicillin Sensitive Staphylococcus aureus in both the blood and left shoulder aspirate. #4 Febrile illness secondary to above and suspected urinary tract infection as well. #5 Acute exacerbation of diastolic congestive heart failure. #6 Hyperlipidemia. #7 Diabetes mellitus. #8 Hypertension. #9 History of coronary artery disease with previous coronary artery bypass grafting. #10 Left upper extremity pain secondary to recent left humeral fracture. Aspirate is positive for MSSA. #11 Valvular heart disease with severe aortic stenosis, moderate to severe mitral regurgitation, moderate to severe pulmonary hypertension. #12 Acute kidney injury secondary to hypotension/hypo-profusion. Current creatinine 1.01. #13 Poor overall functional performance based on the above-mentioned multiple comorbidities. Plan: The patient was seen and evaluated by Dr. Hardy. The chest xray and ultrasound of the chest was reviewed. We'll plan for a left-sided thoracentesis today. In the interim we'll continue with her current medications. Continue to monitor her hemoglobin. We will increase her activity as tolerated. We'll continue to follow. Time with Patient: Greater than 30
--- NOTE | 2016-08-29 11:52 | P.PN ---
Subjective Patient is doing fairly well today. She is complaining of uncontrolled left shoulder pain. She does not have any concerns otherwise. Objective - Vital Signs Vital signs: Vital Signs Temp 97.3 F L 08/29/16 07:00 Pulse 64 08/29/16 08:14 Resp 16 08/29/16 07:00 BP 124/65 08/29/16 07:00 Pulse Ox 99 08/29/16 07:00 Intake & Output 08/28/16 08/29/16 08/29/16 18:59 06:59 18:59 Intake Total 100 Output Total 2575 1550 Balance -2475 -1550 Weight 79 kg Intake: Intake, IV Titration 100 Amount ceFAZolin 2 gm In Sodium 100 Chloride 0.9% 100 ml @ 100 mls/hr IVPB Q12HR [facility] Rx#:[id number] Output: Urine 1375 1550 Stool 0 Other 1200 Other: Voiding Method Indwelling Catheter Indwelling Catheter Indwelling Catheter # Voids 1 1 # Bowel Movements 1 - Exam General: The patient is awake and alert, in no distress Eye: there is normal conjunctiva bilaterally. Neck: The neck is supple, there is no JVD. Cardiovascular: Normal S1-S2, no S3-S4, no murmurs. Respiratory: Lungs clear to auscultation bilaterally Gastrointestinal: Abdomen is soft, nontender Musculoskeletal: There is no pedal edema. Neurological:. Speech is normal. Skin: Skin is warm and dry - Labs CBC & Chem 7: 08/29/16 07:23 08/29/16 07:23 Labs: Abnormal Lab Results - Last 24 Hours (Table) 08/28/16 08/28/16 08/28/16 Range/Units 12:09 17:15 21:03 RBC (3.80-5.40) m/uL Hgb (11.4-16.0) gm/dL Hct (34.0-46.0) % MCHC (31.0-37.0) g/dL BUN (7-17) mg/dL Glucose (74-99) mg/dL POC Glucose (mg/dL) 187 H 154 H 166 H (75-99) mg/dL 08/29/16 08/29/16 08/29/16 Range/Units 07:20 07:23 07:23 RBC 2.61 L (3.80-5.40) m/uL Hgb 7.0 L* (11.4-16.0) gm/dL Hct 23.3 L (34.0-46.0) % MCHC 30.1 L (31.0-37.0) g/dL BUN 45 H (7-17) mg/dL Glucose 140 H (74-99) mg/dL POC Glucose (mg/dL) 169 H (75-99) mg/dL Microbiology - Last 24 Hours (Table) 08/28/16 12:15 Gram Stain - Preliminary Pleural Fluid Body Fluid Culture - Preliminary Assessment and Plan Plan: #1 acute Non-ST segment elevation myocardial infarction. Evaluated by cardiology during this admission, no intervention recommended. Continue medical management #2 Anemia, suspect possible GI bleed in a patient with recent EGD in May 2016, and last colonoscopy 2010. Discussed with GI service. If patient becomes symptomatic and having evidence of active bleeding they may proceed with a capsule endoscopy. 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 Infectious diseases recommending cefazolin 2 g for 6 to 8 weeks weeks #4 UTI. Urine culture no growth #5 Acute exacerbation of diastolic congestive heart failure. #6 Hyperlipidemia. #7 Diabetes mellitus. #8 essential Hypertension. #9 History of coronary artery disease with previous coronary artery bypass grafting. #10 Left upper extremity pain secondary to recent left humeral fracture. #11 Valvular heart disease with severe aortic stenosis, moderate to severe mitral regurgitation, moderate to severe pulmonary hypertension. #12 Acute kidney injury secondary to hypotension and hypoprofusion. Due to sepsis and anemia. Nephrology following. Creatinine is showing improvement down to 1.11 # 13 coagulopathy resolved not on any anticoagulation #14 hypokalemia patient receiving potassium supplement #15 right sided pleural effusion patient scheduled for thoracentesis today #16 dysphagia: evaluated by speech therapy
[2016-08-29 12:08] LABS: Glucose,Whole Blood 281 mg/dL (75-99)
[2016-08-29] MEDS: HYDROcodone/APAP 10-325MG 1 EACH TAB PO PRN ×2 (12:14→18:29)
[2016-08-29 17:21] LABS: Glucose,Whole Blood 211 mg/dL (75-99)
[2016-08-29 20:25] LABS: Glucose,Whole Blood 247 mg/dL (75-99)
[2016-08-29] MEDS: MELATONIN 5 MG TABLET PO SCH (22:00)
[2016-08-29] MEDS: SERTRALINE 100 MG TAB PO SCH (22:00)
[2016-08-29] MEDS: MULTIVITAMINS, THERA 1 EACH TAB PO SCH (22:01)
[2016-08-29] MEDS: ATORVASTATIN 40 MG TAB PO SCH (22:01)
[2016-08-29] MEDS: CHOLECALCIFEROL 1,000 UNIT TAB PO SCH (22:01)
[2016-08-29] MEDS: FENOFIBRATE 160 MG TAB PO SCH (22:01)
[2016-08-29] MEDS: DONEPEZIL 10 MG TAB PO SCH (22:01)
[2016-08-30] MEDS: HYDROcodone/APAP 10-325MG 1 EACH TAB PO PRN ×3 (00:58→18:15)
[2016-08-30 07:05] LABS: Glucose,Whole Blood 140 mg/dL (75-99)
[2016-08-30] MEDS: DOCUSATE 100 MG CAP PO SCH (07:54)
[2016-08-30] MEDS: EZETIMIBE 10 MG TAB PO SCH (07:54)
[2016-08-30] MEDS: PANTOPRAZOLE 40 MG TABLET PO SCH (07:54)
[2016-08-30] MEDS: FUROSEMIDE 10 MG/ML 4 ML VIAL IV SCH ×2 (07:54→21:14)
[2016-08-30] MEDS: METOPROLOL TARTRATE 25 MG TAB PO SCH ×2 (07:54→21:13)
[2016-08-30] MEDS: POLYETHYLENE GLYCOL 3350 17 GM POWD.PACK PO SCH (07:54)
[2016-08-30] MEDS: ISOSORBIDE MONONITRATE ER 30 MG TAB.ER.24H PO SCH (07:54)
[2016-08-30] MEDS: ceFAZolin 2 GM in SODIUM CHLORIDE 0.9% 100 ML IVPB SCH ×2 (07:55→21:08)
[2016-08-30] MEDS: ALPRAZolam 0.25 MG TAB PO PRN ×3 (07:55→21:13)
[2016-08-30] MEDS: INSULIN LISPRO (humaLOG) 300 UNIT/3 ML VIAL SQ SCH ×4 (07:55→21:53)
[2016-08-30 08:24] LABS: Basophils % (A) 0 %; CH 26.7; CHCM 30.5; Eosinophils # (A) 0.2 k/uL (0-0.7); Eosinophils % (A) 2 %; HDW 3.76; HGB 7.7 gm/dL (11.4-16.0); Hypochromasia Marked; Luc # (Auto) 0.13; Luc % (Auto) 2; Lymphocytes # (A) 1.5 k/uL (1.0-4.8); Lymphocytes % (A) 19 %; MCHC 30.8 g/dL (31.0-37.0); MCV 87.5 fL (80.0-100.0); Mean Platelet Volume 7.1; Monocytes # (A) 0.6 k/uL (0-1.0); Monocytes % (A) 7 %; Neutrophils # (A) 5.6 k/uL (1.3-7.7); Neutrophils % (A) 70 %; Poikilocytosis Slight; RBC 2.86 m/uL (3.80-5.40); RDW 15.6 % (11.5-15.5); WBC (Perox) 8.25
[2016-08-30] MEDS: IPRATROPIUM-ALBUTEROL 3 ML NEB INHALATION SCH ×4 (08:46→19:40)
[2016-08-30 12:29] LABS: Glucose,Whole Blood 163 mg/dL (75-99)
--- NOTE | 2016-08-30 13:00 | P.PN ---
Subjective Principal diagnosis: Acute GI bleeding, MSSA bacteremia. 80-year-old female patient who initially presented on 08/13/2016 because of increased shortness of breath. The patient was ruled in for an acute non-ST segment elevation myocardial infarction. The patient is known to have coronary artery disease with previous bypass surgery. Other comorbid conditions include hypertension diabetes mellitus and hyperlipidemia and congestion heart failure. During this current hospitalization, the patient was also found to be septic with MRSA bacteremia, acute kidney injury secondary to acute ischemic trigger necrosis, sepsis, hypotension, pressor dependence, an acute transfusion reaction secondary to her packed RBC transfusion for which the patient was given for a low hemoglobin. The patient was also suspected to have a fracture of the left humerus. A CAT scan was done yesterday showed a comminuted fracture of the left humeral neck, and pathologic fracture was suspected with a concern of an underlying malignancy. There was soft tissue thickening in the area which could be related to edema post fracture or soft tissue mass. Note that I have seen this patient back in May 2016 for chest pain and suspected GI bleeding and back then was noted the patient sustained a fracture to her left humerus and this was being treated conservatively and she did not require any surgical intervention. The patient also is known to have history of syncope during which she did have had sustained the left humeral fracture, episodes of dysphagia, chronic anemia, small bowel obstruction related to a benign lesion of the intestine that was resected, chronic renal failure stage III kidney disease, CHF with diastolic dysfunction and ejection fraction of 55- 60%, aortic stenosis and previous coronary artery bypass surgery. On 08/17/2016 I'm seeing this patient in follow-up. The patient is resting comfortably in bed. The patient has no respiratory distress. Hemodynamically she is stable and the patient has been off dopamine for more than 12 hours. She is producing adequate amount of urine output. Her pulse ox is around 98% on 2 L of oxygen nasal cannula. She has a cardiac murmur which is related to aortic stenosis. As mentioned earlier, the patient had staph aureus Ammann MSSA and the blood, on 3 different blood cultures and the most recent blood cultures negative. For that reason, the patient was covered with cefazolin 2 g every 12 hours. Renal function is improving and creatinine is down to 1.5. Rest of the electrolytes show no major abnormalities. The patient continues to have a component of non-anion gap metabolic acidosis with a bicarb level of 18. The chest x-ray from admission showed evidence of any pneumonia. Echocardiogram from May 2016 showed a ejection fraction of 55-60% along with moderate degree of aortic stenosis. The patient is seen again today 08/18/2016 in follow-up on the regular medical floor. She is awake and alert in no acute distress. She did undergo transesophageal echocardiogram yesterday. There is no evidence of vegetation on any of the valves. There was noted severe aortic stenosis with moderate to severe mitral regurgitation and moderate to severe pulmonary hypertension. Today she denies any worsening shortness of breath. She is maintaining good O2 saturations in the mid 90s on 2 L/m per nasal cannula. She's been hemodynamically stable. She remains on cefazolin. Bicarb remains low at 18. She remains on sodium bicarbonate tablets. She remains in a negative balance. Creatinine improved to 1.50. Her hemoglobin is drifting down currently at 7.2. The patient is seen again today 08/19/2016 in follow-up on the regular medical floor. She is continuing to maintain O2 saturations in the 90s on 2 L/m. Nasal cannula. She is currently afebrile. No leukocytosis. Hemoglobin stable at 7.4. Bicarb is improved slightly at 20. Creatinine has recovered to 0.85. She did have a biopsy of the left shoulder results of which are pending. She still has significant discomfort in that shoulder. The patient was seen again today 08/21/2016 as she was now being transferred to the intensive care unit. She had developed recurrent GI bleeding. She had black tarry stools last night and a drop in her hemoglobin to 6.8. A repeat hemoglobin was 7.1 and then later today he was back to 6.3. She did have a previous reaction to a blood transfusion earlier this admission as well. Also noted was her INR 4.4. She did receive some vitamin K and it is currently 2.4. GI services and surgical services have been involved with her as well. Currently, she is seen resting fairly comfortable in bed. She is somewhat anxious due to her situation but denies any worsening shortness of breath, cough or congestion. No chest pain, no lightheadedness or dizziness. She is maintaining O2 saturations at 100% on 2 L/m per nasal cannula. She remains hemodynamically stable. Not requiring any pressor support. The patient is seen again today 08/22/2016 in the intensive care unit. She is awake and alert in no acute distress. She did receive a unit of transfer views packed red blood cells and her current hemoglobin is 8.4. INR 1.4. GI services are on the case and are she has not had any further black tarry stools considering EGD. The patient has continued to decline a colonoscopy. She has not had any further black tarry stools or hematoemesis. She continues on Protonix IV. Aspirate of the left shoulder did come back positive for methicillin sensitive Staphylococcus aureus in her blood cultures were also positive for MSSA. She has been maintained on cefazolin. She remains hemodynamically stable. She is maintaining good O2 saturations at 96% on room air. She is afebrile. Current creatinine 1.10. On 08/23/2016 the patient is on the medical floor. She is doing well. No specific complaints. No episodes of any GI bleeding. No fever or chills. No signs of septicemia. Still on IV cefazolin regarding MSSA bacteremia and possible osteomyelitis. No change in mental status. Hemoglobin is stable at 8.1. No nausea or vomiting. Tolerating diet. On 08/24/2016, patient is mostly complaining of slight nausea. No abdominal pain , no melena, no hematemesis, no evidence of GI bleeding, she is also complaining of slight shortness of breath. Remains on medications as noted for her MSSA bacteremia. Hemoglobin today is 8.4. Basic metabolic profile was reviewed, BUN is 53 creatinine is 1.17. The patient is seen again today 08/25/2016 in follow-up on the regular medical floor. She is awake and alert in no acute distress. She remains quite weak and mainly in bed at this point. She is maintaining good O2 saturations in the upper 90s on room air. She is afebrile. No further active bleeding documented. Current hemoglobin 8.2. White count 11.4. Creatinine 1.31. She remains on cefazolin for her MSSA and both the blood and the bone aspirate. The patient seen again today 08/26/2016 in follow-up on the regular medical floor. She did have episode of shortness of breath yesterday afternoon. A chest x-ray was consistent with congestive heart failure but not significantly worse as compared to previous. She is on Lasix 40 mg IV every 12 hours. Her renal function is about the same current creatinine 1.27. BUN 52. He remains on bicarb 650 mg twice a day. Her hemoglobin is 7.9 today. There are no plans for EGD/colonoscopy as the patient has continued to decline them as offered by GI services. He has been afebrile. Hemodynamically stable. Maintaining good O2 saturations in the 90s on room air. She remains on cefazolin for the MSSA bacteremia and left shoulder aspirate. A PICC line was placed yesterday. The patient is seen again today 08/27/2016 in follow-up in the regular medical floor. Her chest x-ray does continue to show evidence of congestive heart failure and some small pleural effusions. She is still requiring 2 L/m per nasal cannula to maintain O2 saturations in the 90s. We'll plan to do an ultrasound of the chest to determine if there is enough fluid for thoracentesis today. The patient is seen again today 08/28/2016 in follow-up on the regular medical floor. She is awake and alert in no acute distress. Her main complaint is that of nausea. No worsening shortness of breath, cough or congestion. She is dyspneic on minimal exertion however. Ultrasound of the chest did reveal a 9.2 cm pocket of fluid on the right and a 5.8 cm pocket of fluid on the left. We' ll plan for right sided thoracentesis today. The patient and her family at the bedside are agreeable. She is maintaining good O2 saturations in the high 90s on 2 L/m per nasal cannula. She's been hemodynamically stable. Current hemoglobin 7.8. The patient is seen again today 08/29/2016 in follow-up on the regular medical floor. She is currently awake and alert in no acute distress. She is breathing slightly better today as compared to yesterday. She did have a thoracentesis performed with approximately 1.2 L of fluid removed. Fluid analysis is pending. Her chest x-ray did reveal significant improvement in the right lung pleural effusion however she continues with a moderate-sized left pleural effusion as well. We'll plan to perform a thoracentesis today. He is maintaining good O2 saturations in the high 90s on 2 L/m per nasal cannula. She is currently afebrile. Her hemoglobin continues to drift down currently at 7.0. No signs of active bleeding. Her renal function has improved to creatinine of 1.01. On 08/30/2016, patient is about the same. I was planning to do a left-sided thoracentesis on this patient yesterday, however we had difficulty placing the patient in the proper disposition because of her left shoulder pain. I could not raise the left upper extremity up enough to safely perform a safety thoracentesis. Hence I decided to treat her pleural effusion medically rather than surgically. Her right-sided pleural effusion has completely resolved based on the last chest x-ray, however her small pleural effusions and the left side is about 5 cm pocket, hoping it will improve with diuretics only. Patient is still complaining of aches and pains, some shortness of breath, no chest pain , no nausea, no vomiting, no melena and no hematemesis. Hemoglobin is 7.7 WBC count is 8.0. Last chest x-ray was from 08/28, and I plan to repeat chest x-ray in a.m. Objective - Vital Signs Vital signs: Vital Signs Temp 96.5 F L 08/30/16 07:00 Pulse 64 08/30/16 12:00 Resp 16 08/30/16 08:00 BP 133/62 08/30/16 07:00 Pulse Ox 100 08/30/16 07:00 Intake & Output 08/29/16 08/30/16 08/30/16 18:59 06:59 18:59 Output Total 1200 1125 Balance -1200 -1125 Output: Urine 1200 1125 Other: Voiding Method Indwelling Catheter Indwelling Catheter Indwelling Catheter # Voids 1 # Bowel Movements 0 - Exam Physical Exam: Revealed an 80-year-old female in no distress. HEENT:[Neck is supple.] [No neck masses.] [No thyromegaly.] [No JVD.] Chest: [Diminished breath sounds at the bases, no crackles, no rhonchi, no wheezes.] Cardiac Exam: [Normal S1 and S2, no S3 gallop, 3/6 systolic murmur throughout the precordium] Abdomen: [Soft, nontender, no megaly, no rebound, no guarding, normal bowel sounds.] Extremities: [No clubbing, no edema, no cyanosis.] Neurological Exam: [No focal neurologic deficit.] - Labs CBC & Chem 7: 08/30/16 07:58 08/29/16 07:23 Labs: Abnormal Lab Results - Last 24 Hours (Table) 08/29/16 08/29/16 08/30/16 Range/Units 17:18 20:21 07:03 RBC (3.80-5.40) m/uL Hgb (11.4-16.0) gm/dL Hct (34.0-46.0) % MCHC (31.0-37.0) g/dL RDW (11.5-15.5) % POC Glucose (mg/dL) 211 H 247 H 140 H (75-99) mg/dL 08/30/16 08/30/16 Range/Units 07:58 12:21 RBC 2.86 L (3.80-5.40) m/uL Hgb 7.7 L (11.4-16.0) gm/dL Hct 25.0 L (34.0-46.0) % MCHC 30.8 L (31.0-37.0) g/dL RDW 15.6 H (11.5-15.5) % POC Glucose (mg/dL) 163 H (75-99) mg/dL Microbiology - Last 24 Hours (Table) 08/28/16 12:15 Gram Stain - Preliminary Pleural Fluid Body Fluid Culture - Preliminary Assessment and Plan Plan: 1 acute non-ST segment elevation myocardial infarction with an underlying coronary artery disease and previous bypass surgery, currently free of any chest pain 2 hypotension most likely secondary to underlying staph septicemia, currently off pressors, recovered 3 staph aureus septicemia, MSSA. The exact source is not clear. No evidence of pneumonia. No urinary source of infection. Endocarditis is less likely. 4 moderate degree of aortic stenosis 5 CHF with diastolic dysfunction and ejection fraction of 55-60% 6 diabetes mellitus type 2 7 hypertension 8 hyperlipidemia 9 previous history of syncope and fall with a fractured left humerus 10 chronic anemia with previous blood transfusions 11 right bundle branch block pattern on EKG 12 acute renal failure with an acute kidney injury, improving 13 episodes of dysphagia 14 history of small bowel obstruction related to a benign lesion that was surgically resected 15 osteoarthritis 16 osteoarthritis 17 left humerus fracture/infection, please refer to the previous evaluations and the CAT scan is done. 18 non-anion gap metabolic acidosis, recovered 19 status post right-sided thoracentesis were in 1200 mL of free flowing fluid was removed. The reported protein and LDH on the fluid does not make any sense , obviously there is a lab error. However the fluid itself clinically seems to be transudative and fluid of congestive heart failure anyway. No growth was noted in the fluid. Cytology is pending. Recommendation: Continue present treatment plan, continue to watch for any signs of bleeding, continue to monitor hemoglobin, no signs of septicemia at this point, monitor daily hemoglobin. We'll continue to follow. Time with Patient: Less than 30
--- NOTE | 2016-08-30 13:02 | PN ---
DATE OF SERVICE: 08/29/2016 Reason for follow up is MSSA bacteremia with left humerus osteomyelitis. INTERVAL HISTORY: The patient is afebrile. He is breathing comfortably. Denies significant chest pain. No cough. She complained of some epigastric discomfort now, but no vomiting and no diarrhea. On examination, blood pressure is 124/65 with a pulse of 57, temperature 97.4. She is 99% on 2 liters nasal cannula. General description is an elderly female lying in bed in no distress. RESPIRATORY SYSTEM: Unlabored breathing. Clear to auscultation anteriorly. HEART: S1, S2, regular rate and rhythm. ABDOMEN: Soft and minimally tender right upper quadrant area. LABS: Hemoglobin is 7, white count 8.30 with a BUN of 45, creatinine 1.101. DIAGNOSTIC IMPRESSION AND PLAN: 1. Patient with methicillin susceptible Staphylococcus aureus bacteremia. Source is left humerus osteomyelitis with patient currently on cefazolin. Follow up blood culture has been negative. She is to continue cefazolin 2 gram for a total of 6 to 8 weeks with weekly monitoring of blood work. 2. Patient with gastric discomfort with anemia and question of possible peptic ulcer disease. Currently on Protonix. May benefit from a gastrointestinal reevaluation. Continue supportive care. MTDD
--- NOTE | 2016-08-30 14:20 | P.PN ---
Subjective Patient is doing fairly well today. She is complaining of uncontrolled left shoulder pain. She does not have any concerns otherwise. Objective - Vital Signs Vital signs: Vital Signs Temp 96.5 F L 08/30/16 07:00 Pulse 64 08/30/16 12:00 Resp 16 08/30/16 08:00 BP 133/62 08/30/16 07:00 Pulse Ox 100 08/30/16 07:00 Intake & Output 08/29/16 08/30/16 08/30/16 18:59 06:59 18:59 Output Total 1200 1125 Balance -1200 -1125 Output: Urine 1200 1125 Other: Voiding Method Indwelling Catheter Indwelling Catheter Indwelling Catheter # Voids 1 # Bowel Movements 0 - Exam General: The patient is awake and alert, in no distress Eye: there is normal conjunctiva bilaterally. Neck: The neck is supple, there is no JVD. Cardiovascular: Normal S1-S2, no S3-S4, no murmurs. Respiratory: Lungs clear to auscultation bilaterally Gastrointestinal: Abdomen is soft, nontender Musculoskeletal: There is no pedal edema. Neurological:. Speech is normal. Skin: Skin is warm and dry - Labs CBC & Chem 7: 08/30/16 07:58 08/29/16 07:23 Labs: Abnormal Lab Results - Last 24 Hours (Table) 08/29/16 08/29/16 08/30/16 Range/Units 17:18 20:21 07:03 RBC (3.80-5.40) m/uL Hgb (11.4-16.0) gm/dL Hct (34.0-46.0) % MCHC (31.0-37.0) g/dL RDW (11.5-15.5) % POC Glucose (mg/dL) 211 H 247 H 140 H (75-99) mg/dL 08/30/16 08/30/16 Range/Units 07:58 12:21 RBC 2.86 L (3.80-5.40) m/uL Hgb 7.7 L (11.4-16.0) gm/dL Hct 25.0 L (34.0-46.0) % MCHC 30.8 L (31.0-37.0) g/dL RDW 15.6 H (11.5-15.5) % POC Glucose (mg/dL) 163 H (75-99) mg/dL Microbiology - Last 24 Hours (Table) 08/28/16 12:15 Gram Stain - Preliminary Pleural Fluid Body Fluid Culture - Preliminary Assessment and Plan Plan: #1 acute Non-ST segment elevation myocardial infarction. Evaluated by cardiology during this admission, no intervention recommended. Continue medical management #2 Anemia, suspect possible GI bleed in a patient with recent EGD in May 2016, and last colonoscopy 2010. Discussed with GI service. If patient becomes symptomatic and having evidence of active bleeding they may proceed with a capsule endoscopy. 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 Infectious diseases recommending cefazolin 2 g for 6 to 8 weeks weeks #4 UTI. Urine culture no growth #5 Acute exacerbation of diastolic congestive heart failure. #6 Hyperlipidemia. #7 Diabetes mellitus. #8 essential Hypertension. #9 History of coronary artery disease with previous coronary artery bypass grafting. #10 Left upper extremity pain secondary to recent left humeral fracture. #11 Valvular heart disease with severe aortic stenosis, moderate to severe mitral regurgitation, moderate to severe pulmonary hypertension. #12 Acute kidney injury secondary to hypotension and hypoprofusion. Due to sepsis and anemia. Nephrology following. Creatinine is showing improvement down to 1.11 # 13 coagulopathy resolved not on any anticoagulation #14 hypokalemia patient receiving potassium supplement #15 right sided pleural effusion patient scheduled for thoracentesis today #16 dysphagia: evaluated by speech therapy
[2016-08-30 17:16] LABS: Glucose,Whole Blood 136 mg/dL (75-99)
[2016-08-30 19:20] LABS: Creatine Kinase <20 U/L (30-135)
[2016-08-30 19:33] LABS: Creatine Kinase MB 0.5 ng/mL (0.0-2.4)
[2016-08-30 19:45] LABS: Troponin I 0.066 ng/mL (0.000-0.034)
[2016-08-30] MEDS ORDERED: MORPHINE SULFATE 2 MG/ML SYRINGE IVP ONE (20:46)
[2016-08-30] MEDS: FENOFIBRATE 160 MG TAB PO SCH (21:13)
[2016-08-30] MEDS: MELATONIN 5 MG TABLET PO SCH (21:13)
[2016-08-30] MEDS: ATORVASTATIN 40 MG TAB PO SCH (21:13)
[2016-08-30] MEDS: DONEPEZIL 10 MG TAB PO SCH (21:13)
[2016-08-30] MEDS: MULTIVITAMINS, THERA 1 EACH TAB PO SCH (21:13)
[2016-08-30] MEDS: CHOLECALCIFEROL 1,000 UNIT TAB PO SCH (21:13)
[2016-08-30 21:46] LABS: Glucose,Whole Blood 274 mg/dL (75-99)
[2016-08-30] MEDS: SERTRALINE 100 MG TAB PO SCH (21:53)
[2016-08-31] MEDS: HYDROcodone/APAP 10-325MG 1 EACH TAB PO PRN ×5 (03:10→23:13)
[2016-08-31 07:22] LABS: Glucose,Whole Blood 168 mg/dL (75-99)
[2016-08-31] MEDS: IPRATROPIUM-ALBUTEROL 3 ML NEB INHALATION SCH ×4 (07:28→20:47)
[2016-08-31 07:50] LABS: Basophils % (A) 0 %; CH 26.1; CHCM 29.9; Eosinophils # (A) 0.1 k/uL (0-0.7); Eosinophils % (A) 2 %; HCT 20.3 % (34.0-46.0); HDW 3.68; Hypochromasia Marked; Luc # (Auto) 0.12; Luc % (Auto) 2; Lymphocytes # (A) 1.3 k/uL (1.0-4.8); Lymphocytes % (A) 19 %; MCH 27.1 pg (25.0-35.0); MCHC 31.1 g/dL (31.0-37.0); MCV 87.1 fL (80.0-100.0); Mean Platelet Volume 7.3; Monocytes # (A) 0.6 k/uL (0-1.0); Monocytes % (A) 8 %; Neutrophils # (A) 4.8 k/uL (1.3-7.7); Neutrophils % (A) 69 %; Poikilocytosis Slight; RBC 2.33 m/uL (3.80-5.40); RDW 15.8 % (11.5-15.5); WBC (Perox) 6.82
[2016-08-31 07:52] LABS: HGB 6.3 gm/dL (11.4-16.0)
[2016-08-31] MEDS: INSULIN LISPRO (humaLOG) 300 UNIT/3 ML VIAL SQ SCH ×4 (07:56→21:59)
[2016-08-31] MEDS: ONDANSETRON 4 MG/2 ML VIAL IVP PRN (07:56)
[2016-08-31] MEDS: ceFAZolin 2 GM in SODIUM CHLORIDE 0.9% 100 ML IVPB SCH (07:57)
[2016-08-31] MEDS: FUROSEMIDE 10 MG/ML 4 ML VIAL IV SCH ×2 (07:57→21:58)
[2016-08-31] MEDS: DOCUSATE 100 MG CAP PO SCH (07:57)
[2016-08-31] MEDS: ALPRAZolam 0.25 MG TAB PO PRN ×2 (07:57→23:13)
[2016-08-31] MEDS: PANTOPRAZOLE 40 MG TABLET PO SCH (07:58)
[2016-08-31] MEDS: POLYETHYLENE GLYCOL 3350 17 GM POWD.PACK PO SCH (07:58)
[2016-08-31] MEDS: EZETIMIBE 10 MG TAB PO SCH (07:58)
[2016-08-31] MEDS: ISOSORBIDE MONONITRATE ER 30 MG TAB.ER.24H PO SCH ×2 (07:59→08:02)
[2016-08-31] MEDS: METOPROLOL TARTRATE 25 MG TAB PO SCH ×3 (07:59→22:00)
--- NOTE | 2016-08-31 08:13 | XR ---
EXAMINATION TYPE: XR chest 1V portable DATE OF EXAM: 08/31/2016 COMPARISON: Prior chest x-ray 08/28/2016 HISTORY: Congestive heart failure TECHNIQUE: Single frontal view of the chest is obtained. FINDINGS: Patient is rotated. Heart is enlarged. Right-sided PICC line is stable. Patient is post me batla sternotomy. There is obscured left hemidiaphragm and heart border. Patchy basilar density also s uspected on the right. IMPRESSION: Correlate for congestive heart failure or volume overload, pneumonia with associated par apneumonic effusion.
[2016-08-31 08:24] LABS: ALT 21 U/L (9-52); AST 20 U/L (14-36); Alkaline Phosphatase 50 U/L (38-126); Blood Urea Nitrogen 43 mg/dL (7-17); Calcium 8.3 mg/dL (8.4-10.2); Chloride 92 mmol/L (98-107); Glucose 142 mg/dL (74-99); Non-African American GFR(MDRD) 57 (>60 ml/min/1.73 sqM); Potassium 3.7 mmol/L (3.5-5.1); Sodium 135 mmol/L (137-145); Total Bilirubin 0.3 mg/dL (0.2-1.3); Total Protein 4.4 g/dL (6.3-8.2)
[2016-08-31 08:30] LABS: Anion Gap 4 mmol/L
[2016-08-31 08:45] LABS: Carbon Dioxide 39 mmol/L (22-30)
--- NOTE | 2016-08-31 11:32 | PN ---
DATE OF SERVICE: 08/30/2016 Reason for follow-up: Methicillin-susceptible Staph aureus bacteremia with left humerus osteomyelitis. INTERVAL HISTORY: The patient is afebrile. She is complaining of pain when she takes a deep breath. No significant cough. Nausea but no vomiting. Did have some pain in the left arm area yesterday last night, though improved today. On examination, blood pressure is 104/56 with a pulse of 56, temperature is 97.3. She is 95% on room air. General description is an elderly female, lying in bed in no distress. RESPIRATORY SYSTEM: Unlabored breathing, clear to auscultation anteriorly. HEART: S1, S2. Regular rate and rhythm. ABDOMEN: Soft, no tenderness. LABS: Hemoglobin 7.7 with a white count of 8. DIAGNOSTIC IMPRESSION AND PLAN: Patient with Methicillin-susceptible Staph aureus bacteremia, source left humerus osteomyelitis. The patient did continue cefazolin 2 grams q8hr , the patient already has a PICC line. Continue another 6 weeks of IV antibiotic, hence the patient already received about 2 weeks with monitoring of her labs in outpatient. Continue supportive care. CHRISTINA
[2016-08-31 12:15] LABS: Glucose,Whole Blood 256 mg/dL (75-99)
--- NOTE | 2016-08-31 13:44 | P.PN ---
Subjective Principal diagnosis: Acute GI bleeding, MSSA bacteremia. 80-year-old female patient who initially presented on 08/13/2016 because of increased shortness of breath. The patient was ruled in for an acute non-ST segment elevation myocardial infarction. The patient is known to have coronary artery disease with previous bypass surgery. Other comorbid conditions include hypertension diabetes mellitus and hyperlipidemia and congestion heart failure. During this current hospitalization, the patient was also found to be septic with MRSA bacteremia, acute kidney injury secondary to acute ischemic trigger necrosis, sepsis, hypotension, pressor dependence, an acute transfusion reaction secondary to her packed RBC transfusion for which the patient was given for a low hemoglobin. The patient was also suspected to have a fracture of the left humerus. A CAT scan was done yesterday showed a comminuted fracture of the left humeral neck, and pathologic fracture was suspected with a concern of an underlying malignancy. There was soft tissue thickening in the area which could be related to edema post fracture or soft tissue mass. Note that I have seen this patient back in May 2016 for chest pain and suspected GI bleeding and back then was noted the patient sustained a fracture to her left humerus and this was being treated conservatively and she did not require any surgical intervention. The patient also is known to have history of syncope during which she did have had sustained the left humeral fracture, episodes of dysphagia, chronic anemia, small bowel obstruction related to a benign lesion of the intestine that was resected, chronic renal failure stage III kidney disease, CHF with diastolic dysfunction and ejection fraction of 55- 60%, aortic stenosis and previous coronary artery bypass surgery. On 08/17/2016 I'm seeing this patient in follow-up. The patient is resting comfortably in bed. The patient has no respiratory distress. Hemodynamically she is stable and the patient has been off dopamine for more than 12 hours. She is producing adequate amount of urine output. Her pulse ox is around 98% on 2 L of oxygen nasal cannula. She has a cardiac murmur which is related to aortic stenosis. As mentioned earlier, the patient had staph aureus Ammann MSSA and the blood, on 3 different blood cultures and the most recent blood cultures negative. For that reason, the patient was covered with cefazolin 2 g every 12 hours. Renal function is improving and creatinine is down to 1.5. Rest of the electrolytes show no major abnormalities. The patient continues to have a component of non-anion gap metabolic acidosis with a bicarb level of 18. The chest x-ray from admission showed evidence of any pneumonia. Echocardiogram from May 2016 showed a ejection fraction of 55-60% along with moderate degree of aortic stenosis. The patient is seen again today 08/18/2016 in follow-up on the regular medical floor. She is awake and alert in no acute distress. She did undergo transesophageal echocardiogram yesterday. There is no evidence of vegetation on any of the valves. There was noted severe aortic stenosis with moderate to severe mitral regurgitation and moderate to severe pulmonary hypertension. Today she denies any worsening shortness of breath. She is maintaining good O2 saturations in the mid 90s on 2 L/m per nasal cannula. She's been hemodynamically stable. She remains on cefazolin. Bicarb remains low at 18. She remains on sodium bicarbonate tablets. She remains in a negative balance. Creatinine improved to 1.50. Her hemoglobin is drifting down currently at 7.2. The patient is seen again today 08/19/2016 in follow-up on the regular medical floor. She is continuing to maintain O2 saturations in the 90s on 2 L/m. Nasal cannula. She is currently afebrile. No leukocytosis. Hemoglobin stable at 7.4. Bicarb is improved slightly at 20. Creatinine has recovered to 0.85. She did have a biopsy of the left shoulder results of which are pending. She still has significant discomfort in that shoulder. The patient was seen again today 08/21/2016 as she was now being transferred to the intensive care unit. She had developed recurrent GI bleeding. She had black tarry stools last night and a drop in her hemoglobin to 6.8. A repeat hemoglobin was 7.1 and then later today he was back to 6.3. She did have a previous reaction to a blood transfusion earlier this admission as well. Also noted was her INR 4.4. She did receive some vitamin K and it is currently 2.4. GI services and surgical services have been involved with her as well. Currently, she is seen resting fairly comfortable in bed. She is somewhat anxious due to her situation but denies any worsening shortness of breath, cough or congestion. No chest pain, no lightheadedness or dizziness. She is maintaining O2 saturations at 100% on 2 L/m per nasal cannula. She remains hemodynamically stable. Not requiring any pressor support. The patient is seen again today 08/22/2016 in the intensive care unit. She is awake and alert in no acute distress. She did receive a unit of transfer views packed red blood cells and her current hemoglobin is 8.4. INR 1.4. GI services are on the case and are she has not had any further black tarry stools considering EGD. The patient has continued to decline a colonoscopy. She has not had any further black tarry stools or hematoemesis. She continues on Protonix IV. Aspirate of the left shoulder did come back positive for methicillin sensitive Staphylococcus aureus in her blood cultures were also positive for MSSA. She has been maintained on cefazolin. She remains hemodynamically stable. She is maintaining good O2 saturations at 96% on room air. She is afebrile. Current creatinine 1.10. On 08/23/2016 the patient is on the medical floor. She is doing well. No specific complaints. No episodes of any GI bleeding. No fever or chills. No signs of septicemia. Still on IV cefazolin regarding MSSA bacteremia and possible osteomyelitis. No change in mental status. Hemoglobin is stable at 8.1. No nausea or vomiting. Tolerating diet. On 08/24/2016, patient is mostly complaining of slight nausea. No abdominal pain , no melena, no hematemesis, no evidence of GI bleeding, she is also complaining of slight shortness of breath. Remains on medications as noted for her MSSA bacteremia. Hemoglobin today is 8.4. Basic metabolic profile was reviewed, BUN is 53 creatinine is 1.17. The patient is seen again today 08/25/2016 in follow-up on the regular medical floor. She is awake and alert in no acute distress. She remains quite weak and mainly in bed at this point. She is maintaining good O2 saturations in the upper 90s on room air. She is afebrile. No further active bleeding documented. Current hemoglobin 8.2. White count 11.4. Creatinine 1.31. She remains on cefazolin for her MSSA and both the blood and the bone aspirate. The patient seen again today 08/26/2016 in follow-up on the regular medical floor. She did have episode of shortness of breath yesterday afternoon. A chest x-ray was consistent with congestive heart failure but not significantly worse as compared to previous. She is on Lasix 40 mg IV every 12 hours. Her renal function is about the same current creatinine 1.27. BUN 52. He remains on bicarb 650 mg twice a day. Her hemoglobin is 7.9 today. There are no plans for EGD/colonoscopy as the patient has continued to decline them as offered by GI services. He has been afebrile. Hemodynamically stable. Maintaining good O2 saturations in the 90s on room air. She remains on cefazolin for the MSSA bacteremia and left shoulder aspirate. A PICC line was placed yesterday. The patient is seen again today 08/27/2016 in follow-up in the regular medical floor. Her chest x-ray does continue to show evidence of congestive heart failure and some small pleural effusions. She is still requiring 2 L/m per nasal cannula to maintain O2 saturations in the 90s. We'll plan to do an ultrasound of the chest to determine if there is enough fluid for thoracentesis today. The patient is seen again today 08/28/2016 in follow-up on the regular medical floor. She is awake and alert in no acute distress. Her main complaint is that of nausea. No worsening shortness of breath, cough or congestion. She is dyspneic on minimal exertion however. Ultrasound of the chest did reveal a 9.2 cm pocket of fluid on the right and a 5.8 cm pocket of fluid on the left. We' ll plan for right sided thoracentesis today. The patient and her family at the bedside are agreeable. She is maintaining good O2 saturations in the high 90s on 2 L/m per nasal cannula. She's been hemodynamically stable. Current hemoglobin 7.8. The patient is seen again today 08/29/2016 in follow-up on the regular medical floor. She is currently awake and alert in no acute distress. She is breathing slightly better today as compared to yesterday. She did have a thoracentesis performed with approximately 1.2 L of fluid removed. Fluid analysis is pending. Her chest x-ray did reveal significant improvement in the right lung pleural effusion however she continues with a moderate-sized left pleural effusion as well. We'll plan to perform a thoracentesis today. He is maintaining good O2 saturations in the high 90s on 2 L/m per nasal cannula. She is currently afebrile. Her hemoglobin continues to drift down currently at 7.0. No signs of active bleeding. Her renal function has improved to creatinine of 1.01. On 08/30/2016, patient is about the same. I was planning to do a left-sided thoracentesis on this patient yesterday, however we had difficulty placing the patient in the proper disposition because of her left shoulder pain. I could not raise the left upper extremity up enough to safely perform a safety thoracentesis. Hence I decided to treat her pleural effusion medically rather than surgically. Her right-sided pleural effusion has completely resolved based on the last chest x-ray, however her small pleural effusions and the left side is about 5 cm pocket, hoping it will improve with diuretics only. Patient is still complaining of aches and pains, some shortness of breath, no chest pain , no nausea, no vomiting, no melena and no hematemesis. Hemoglobin is 7.7 WBC count is 8.0. Last chest x-ray was from 08/28, and I plan to repeat chest x-ray in a.m. On 08/31/2016, patient remains generally weak, fatigued, had apparently intermittent episodes of nausea and vomiting last night. No documented melena or hematemesis, however her hemoglobin today is 6.3. Her admitting physician was notified by the nurses, and the patient is to receive 1 unit of packed RBCs today, and follow-up hemoglobin will be retested. Pulmonary-mar patient is about the same, continues to have a small left pleural effusion, the right- sided pleural effusion has completely resolved after the last thoracentesis. I still believe the patient will likely benefit from left thoracentesis, however positioning the patient was quite difficult to be able to do a safety thoracentesis, and I have recommended medical treatment rather than surgical intervention. Overall, the patient is not making significant dramatic recovery , based on the fact that she has multiple comorbidities as noted above. Objective - Vital Signs Vital signs: Vital Signs Temp 97.1 F L 08/31/16 12:28 Pulse 79 08/31/16 12:28 Resp 18 08/31/16 12:28 BP 91/42 08/31/16 12:28 Pulse Ox 95 08/31/16 12:28 Intake & Output 08/30/16 08/31/16 08/31/16 18:59 06:59 18:59 Intake Total 400 610 Output Total 1000 1200 0 Balance -1000 -800 610 Intake: Intake, IV Titration 100 Amount ceFAZolin 2 gm In Sodium 100 Chloride 0.9% 100 ml @ 100 mls/hr IVPB Q12HR [facility] Rx#:[id number] Oral 400 200 Blood Product 310 Rc As-1 Unit 0 [id number] Output: Urine 1000 1200 Stool 0 Other: Voiding Method Indwelling Catheter Indwelling Catheter Indwelling Catheter # Voids 1 # Bowel Movements 0 - Exam Physical Exam: Revealed an 80-year-old female in no distress. Looks frail, and chronically ill. Patient also looks pale. HEENT:[Neck is supple.] [No neck masses.] [No thyromegaly.] [No JVD.] Chest: [Diminished breath sounds at the bases, no crackles, no rhonchi, no wheezes.] Cardiac Exam: [Normal S1 and S2, no S3 gallop, 3/6 systolic murmur throughout the precordium] Abdomen: [Soft, nontender, no megaly, no rebound, no guarding, normal bowel sounds.] Extremities: [No clubbing, no edema, no cyanosis.] Neurological Exam: [No focal neurologic deficit.] - Labs CBC & Chem 7: 08/31/16 07:15 08/31/16 07:15 Labs: Abnormal Lab Results - Last 24 Hours (Table) 08/30/16 08/30/16 08/30/16 Range/Units 17:14 18:36 21:43 RBC (3.80-5.40) m/uL Hgb (11.4-16.0) gm/dL Hct (34.0-46.0) % RDW (11.5-15.5) % Sodium (137-145) mmol/L Chloride (98-107) mmol/L Carbon Dioxide (22-30) mmol/L BUN (7-17) mg/dL Glucose (74-99) mg/dL POC Glucose (mg/dL) 136 H 274 H (75-99) mg/dL Calcium (8.4-10.2) mg/dL Total Creatine Kinase <20 L (30-135) U/L Troponin I 0.066 H* (0.000-0.034) ng/mL Total Protein (6.3-8.2) g/dL Albumin (3.5-5.0) g/dL Crossmatch 08/31/16 08/31/16 08/31/16 Range/Units 07:12 07:15 07:15 RBC 2.33 L (3.80-5.40) m/uL Hgb 6.3 L* (11.4-16.0) gm/dL Hct 20.3 L (34.0-46.0) % RDW 15.8 H (11.5-15.5) % Sodium 135 L (137-145) mmol/L Chloride 92 L (98-107) mmol/L Carbon Dioxide 39 H (22-30) mmol/L BUN 43 H (7-17) mg/dL Glucose 142 H (74-99) mg/dL POC Glucose (mg/dL) 168 H (75-99) mg/dL Calcium 8.3 L (8.4-10.2) mg/dL Total Creatine Kinase (30-135) U/L Troponin I (0.000-0.034) ng/mL Total Protein 4.4 L (6.3-8.2) g/dL Albumin 2.2 L (3.5-5.0) g/dL Crossmatch 08/31/16 08/31/16 Range/Units 09:00 12:14 RBC (3.80-5.40) m/uL Hgb (11.4-16.0) gm/dL Hct (34.0-46.0) % RDW (11.5-15.5) % Sodium (137-145) mmol/L Chloride (98-107) mmol/L Carbon Dioxide (22-30) mmol/L BUN (7-17) mg/dL Glucose (74-99) mg/dL POC Glucose (mg/dL) 256 H (75-99) mg/dL Calcium (8.4-10.2) mg/dL Total Creatine Kinase (30-135) U/L Troponin I (0.000-0.034) ng/mL Total Protein (6.3-8.2) g/dL Albumin (3.5-5.0) g/dL Crossmatch See Detail Microbiology - Last 24 Hours (Table) 08/28/16 12:15 Gram Stain - Preliminary Pleural Fluid Body Fluid Culture - Preliminary Assessment and Plan Plan: 1 acute non-ST segment elevation myocardial infarction with an underlying coronary artery disease and previous bypass surgery, currently free of any chest pain 2 hypotension most likely secondary to underlying staph septicemia, currently off pressors, recovered 3 staph aureus septicemia, MSSA. The exact source is not clear. No evidence of pneumonia. No urinary source of infection. Endocarditis is less likely. 4 moderate degree of aortic stenosis 5 CHF with diastolic dysfunction and ejection fraction of 55-60% 6 diabetes mellitus type 2 7 hypertension 8 hyperlipidemia 9 previous history of syncope and fall with a fractured left humerus 10 chronic anemia with previous blood transfusions 11 right bundle branch block pattern on EKG 12 acute renal failure with an acute kidney injury, improving 13 episodes of dysphagia 14 history of small bowel obstruction related to a benign lesion that was surgically resected 15 osteoarthritis 16 osteoarthritis 17 left humerus fracture/infection, please refer to the previous evaluations and the CAT scan is done. 18 non-anion gap metabolic acidosis, recovered 19 status post right-sided thoracentesis were in 1200 mL of free flowing fluid was removed. The reported protein and LDH on the fluid does not make any sense , obviously there is a lab error. However the fluid itself clinically seems to be transudative and fluid of congestive heart failure anyway. No growth was noted in the fluid. Cytology is pending. Recommendation: Continue present treatment plan, transfused today for hemoglobin of 6.3, most likely the patient is having recurrent episodes of GI bleeding. And ongoing blood losses. We will continue to follow, prognosis is definitely poor. Time with Patient: Less than 30
--- NOTE | 2016-08-31 14:30 | P.PN ---
Subjective Patient is still complaining of left shoulder pain today. Her hemoglobin dropped this morning requiring 2 units of blood transfusion which is getting right now. Objective - Vital Signs Vital signs: Vital Signs Temp 97 F L 08/31/16 14:20 Pulse 81 08/31/16 14:20 Resp 18 08/31/16 14:20 BP 111/48 08/31/16 14:20 Pulse Ox 98 08/31/16 14:20 Intake & Output 08/30/16 08/31/16 08/31/16 18:59 06:59 18:59 Intake Total 400 920 Output Total 1000 1200 0 Balance -1000 -800 920 Intake: Intake, IV Titration 100 Amount ceFAZolin 2 gm In Sodium 100 Chloride 0.9% 100 ml @ 100 mls/hr IVPB Q12HR [facility] Rx#:[id number] Oral 400 200 Blood Product 620 Rc As-1 Unit 310 [id number] Output: Urine 1000 1200 Stool 0 Other: Voiding Method Indwelling Catheter Indwelling Catheter Indwelling Catheter # Voids 1 # Bowel Movements 0 - Exam General: The patient is awake and alert, in no distress Eye: there is normal conjunctiva bilaterally. Neck: The neck is supple, there is no JVD. Cardiovascular: Normal S1-S2, no S3-S4, no murmurs. Respiratory: Lungs clear to auscultation bilaterally Gastrointestinal: Abdomen is soft, nontender Musculoskeletal: There is no pedal edema. Neurological:. Speech is normal. Skin: Skin is warm and dry - Labs CBC & Chem 7: 08/31/16 07:15 08/31/16 07:15 Labs: Abnormal Lab Results - Last 24 Hours (Table) 08/30/16 08/30/16 08/30/16 Range/Units 17:14 18:36 21:43 RBC (3.80-5.40) m/uL Hgb (11.4-16.0) gm/dL Hct (34.0-46.0) % RDW (11.5-15.5) % Sodium (137-145) mmol/L Chloride (98-107) mmol/L Carbon Dioxide (22-30) mmol/L BUN (7-17) mg/dL Glucose (74-99) mg/dL POC Glucose (mg/dL) 136 H 274 H (75-99) mg/dL Calcium (8.4-10.2) mg/dL Total Creatine Kinase <20 L (30-135) U/L Troponin I 0.066 H* (0.000-0.034) ng/mL Total Protein (6.3-8.2) g/dL Albumin (3.5-5.0) g/dL Crossmatch 08/31/16 08/31/16 08/31/16 Range/Units 07:12 07:15 07:15 RBC 2.33 L (3.80-5.40) m/uL Hgb 6.3 L* (11.4-16.0) gm/dL Hct 20.3 L (34.0-46.0) % RDW 15.8 H (11.5-15.5) % Sodium 135 L (137-145) mmol/L Chloride 92 L (98-107) mmol/L Carbon Dioxide 39 H (22-30) mmol/L BUN 43 H (7-17) mg/dL Glucose 142 H (74-99) mg/dL POC Glucose (mg/dL) 168 H (75-99) mg/dL Calcium 8.3 L (8.4-10.2) mg/dL Total Creatine Kinase (30-135) U/L Troponin I (0.000-0.034) ng/mL Total Protein 4.4 L (6.3-8.2) g/dL Albumin 2.2 L (3.5-5.0) g/dL Crossmatch 08/31/16 08/31/16 Range/Units 09:00 12:14 RBC (3.80-5.40) m/uL Hgb (11.4-16.0) gm/dL Hct (34.0-46.0) % RDW (11.5-15.5) % Sodium (137-145) mmol/L Chloride (98-107) mmol/L Carbon Dioxide (22-30) mmol/L BUN (7-17) mg/dL Glucose (74-99) mg/dL POC Glucose (mg/dL) 256 H (75-99) mg/dL Calcium (8.4-10.2) mg/dL Total Creatine Kinase (30-135) U/L Troponin I (0.000-0.034) ng/mL Total Protein (6.3-8.2) g/dL Albumin (3.5-5.0) g/dL Crossmatch See Detail Microbiology - Last 24 Hours (Table) 08/28/16 12:15 Gram Stain - Preliminary Pleural Fluid Body Fluid Culture - Preliminary Assessment and Plan Plan: #1 acute Non-ST segment elevation myocardial infarction. Evaluated by cardiology during this admission, no intervention recommended. Continue medical management #2 Anemia, suspect possible GI bleed in a patient with recent EGD in May 2016, and last colonoscopy 2010. Discussed with GI service. If patient becomes symptomatic and having evidence of active bleeding they may proceed with a capsule endoscopy. 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 Infectious diseases recommending cefazolin 2 g for 6 to 8 weeks weeks #4 UTI. Urine culture no growth #5 Acute exacerbation of diastolic congestive heart failure. #6 Hyperlipidemia. #7 Diabetes mellitus. #8 essential Hypertension. #9 History of coronary artery disease with previous coronary artery bypass grafting. #10 Left upper extremity pain secondary to recent left humeral fracture. #11 Valvular heart disease with severe aortic stenosis, moderate to severe mitral regurgitation, moderate to severe pulmonary hypertension. #12 Acute kidney injury secondary to hypotension and hypoprofusion. Due to sepsis and anemia. Nephrology following. Creatinine is showing improvement down to 1.11 # 13 coagulopathy resolved not on any anticoagulation #14 hypokalemia patient receiving potassium supplement #15 right sided pleural effusion patient scheduled for thoracentesis today #16 dysphagia: evaluated by speech therapy Patient had another drop in her hemoglobin this morning with no evidence of ongoing bleed. She is getting 2 units of blood transfusion right now. Appreciate toy consultant's recommendations. Continue supportive care. Repeat lab work in the morning.
[2016-08-31 17:00] LABS: Glucose,Whole Blood 177 mg/dL (75-99)
[2016-08-31 18:07] LABS: CH 26.8; Hypochromasia Marked; Poikilocytosis Slight
[2016-08-31 18:36] LABS: CHCM 30.2; HCT 22.1 % (34.0-46.0); HDW 3.79; HGB 6.6 gm/dL (11.4-16.0); MCH 26.7 pg (25.0-35.0); MCV 88.8 fL (80.0-100.0); Mean Platelet Volume 7.1; RBC 2.49 m/uL (3.80-5.40); RDW 15.7 % (11.5-15.5); WBC 6.8 k/uL (3.8-10.6)
--- NOTE | 2016-08-31 19:36 | CT ---
EXAMINATION TYPE: CT abdomen pelvis wo con DATE OF EXAM: 08/31/2016 7:27 PM COMPARISON: 08/13/2016 HISTORY: Patient complains of bloating. Possible GI bleed. CT DLP: 652.00 mGycm Automated exposure control for dose reduction was used. TECHNIQUE: Helical acquisition of images was performed from the lung bases through the pelvis. FINDINGS: There are bilateral pleural effusions. There is atelectasis and infiltrate at the lung bases. Heart i s enlarged. Liver shows no focal defect. There are clips from cholecystectomy. There is no pancreatic mass. Splee n appears normal. There is severe cortical thinning of the right kidney. There is no hydronephrosis. There is no retrop eritoneal adenopathy. Abdominal aorta is atheromatous. There are multiple surgical clips on the anter ior abdomen. There is a Pham catheter in the urinary bladder. Bladder is almost empty. There is mild free fluid in the pelvis. There is mild ascites. I see no evidence of intestinal obstruction. There are no dilated loops. I see no bony destructive pr ocess. IMPRESSION: THERE ARE BILATERAL PLEURAL EFFUSIONS WITH BASILAR INFILTRATES AND ATELECTASIS THAT ARE INCREASED SLI GHTLY COMPARED TO LAST EXAM. CARDIOMEGALY. ATHEROSCLEROTIC VASCULAR DISEASE. ADVANCED RIGHT RENAL COR TICAL ATROPHY. MILD ASCITES IS UNCHANGED. THERE IS SOME MILD SUBCUTANEOUS EDEMA AROUND THE PELVIS RAUL T IS INCREASED COMPARED TO OLD EXAM.
[2016-08-31 21:07] LABS: Glucose,Whole Blood 184 mg/dL (75-99)
[2016-08-31] MEDS: DONEPEZIL 10 MG TAB PO SCH (21:59)
[2016-08-31] MEDS: FENOFIBRATE 160 MG TAB PO SCH (21:59)
[2016-08-31] MEDS: CHOLECALCIFEROL 1,000 UNIT TAB PO SCH (21:59)
[2016-08-31] MEDS: MELATONIN 5 MG TABLET PO SCH (21:59)
[2016-08-31] MEDS: ATORVASTATIN 40 MG TAB PO SCH (22:00)
[2016-08-31] MEDS: SERTRALINE 100 MG TAB PO SCH (22:00)
[2016-08-31] MEDS: MULTIVITAMINS, THERA 1 EACH TAB PO SCH (22:00)
[2016-09-01] MEDS: ceFAZolin 2 GM in SODIUM CHLORIDE 0.9% 100 ML IVPB SCH ×3 (01:16→23:16)
[2016-09-01] MEDS: HYDROcodone/APAP 10-325MG 1 EACH TAB PO PRN ×4 (03:08→21:29)
[2016-09-01 06:32] LABS: Basophils % (A) 0 %; CH 27.1; CHCM 31.4; Eosinophils # (A) 0.2 k/uL (0-0.7); Eosinophils % (A) 2 %; HCT 24.5 % (34.0-46.0); HDW 4.54; HGB 7.7 gm/dL (11.4-16.0); Hypochromasia Marked; Luc # (Auto) 0.15; Luc % (Auto) 2; Lymphocytes # (A) 1.4 k/uL (1.0-4.8); Lymphocytes % (A) 17 %; MCH 27.2 pg (25.0-35.0); MCHC 31.3 g/dL (31.0-37.0); MCV 86.9 fL (80.0-100.0); Mean Platelet Volume 6.9; Monocytes # (A) 0.6 k/uL (0-1.0); Monocytes % (A) 8 %; Neutrophils # (A) 5.5 k/uL (1.3-7.7); Neutrophils % (A) 71 %; Poikilocytosis Moderate; RBC 2.82 m/uL (3.80-5.40); RDW 15.9 % (11.5-15.5); WBC 7.8 k/uL (3.8-10.6); WBC (Perox) 7.67
[2016-09-01 06:51] LABS: ALT 21 U/L (9-52); AST 17 U/L (14-36); Alkaline Phosphatase 53 U/L (38-126); Blood Urea Nitrogen 46 mg/dL (7-17); Calcium 8.2 mg/dL (8.4-10.2); Chloride 88 mmol/L (98-107); Glucose 138 mg/dL (74-99); Non-African American GFR(MDRD) 51 (>60 ml/min/1.73 sqM); Potassium 3.5 mmol/L (3.5-5.1); Sodium 136 mmol/L (137-145); Total Bilirubin 0.4 mg/dL (0.2-1.3); Total Protein 4.6 g/dL (6.3-8.2)
[2016-09-01 06:58] LABS: Anion Gap 6 mmol/L
[2016-09-01 07:11] LABS: Carbon Dioxide 42 mmol/L (22-30)
[2016-09-01 07:36] LABS: Glucose,Whole Blood 157 mg/dL (75-99)
[2016-09-01] MEDS: INSULIN LISPRO (humaLOG) 300 UNIT/3 ML VIAL SQ SCH ×4 (08:44→21:39)
[2016-09-01] MEDS: IPRATROPIUM-ALBUTEROL 3 ML NEB INHALATION SCH ×5 (09:25→20:04)
[2016-09-01] MEDS: ALPRAZolam 0.25 MG TAB PO PRN ×2 (09:26→21:30)
[2016-09-01] MEDS: FUROSEMIDE 10 MG/ML 4 ML VIAL IV SCH ×2 (09:27→21:39)
[2016-09-01] MEDS: ISOSORBIDE MONONITRATE ER 30 MG TAB.ER.24H PO SCH (09:27)
[2016-09-01] MEDS: METOPROLOL TARTRATE 25 MG TAB PO SCH ×2 (09:28→21:33)
[2016-09-01] MEDS: PANTOPRAZOLE 40 MG TABLET PO SCH (09:28)
[2016-09-01] MEDS: POLYETHYLENE GLYCOL 3350 17 GM POWD.PACK PO SCH (09:28)
[2016-09-01] MEDS: EZETIMIBE 10 MG TAB PO SCH (09:28)
[2016-09-01] MEDS: DOCUSATE 100 MG CAP PO SCH (09:29)
--- NOTE | 2016-09-01 10:22 | PN ---
DATE OF SERVICE: 08/31/2016 Reason for follow-up is MSSA bacteremia and left humerus osteomyelitis. INTERVAL HISTORY: The patient is afebrile. She has been complaining of pain in her left shoulder and left arm area since yesterday. No history of any trauma. The patient denies significant chest pain. Occasional cough. Some abdominal discomfort, but an episode of vomiting yesterday. On examination, blood pressure 124/57 with a pulse of 80, temperature 97.5. She is 97% on 3 liters nasal cannula. General description is an elderly female, lying in bed in no distress. RESPIRATORY SYSTEM: Unlabored breathing. Clear to auscultation anteriorly. HEART: S1, S2. Regular rate and rhythm. ABDOMEN: Soft, slightly distended. Mildly tender. Left arm area in sling. No open area. LABS: Hemoglobin 6.3, white count of 7 with a BUN of 43, creatinine 0.94. DIAGNOSTIC IMPRESSION AND PLAN: Patient with Methicillin-sensitive Staphylococcus aureus bacteremia source is left humerus osteomyelitis. Aspirate from the same area grew the same pathogen. She is currently on cefazolin 2 grams daily and that will be continued. Management of her medical condition per the ortho surgeon. Patient may benefit from GI Reevaluation because of persistent anemia. Family was present at beside. Their questions were answered. CHRISTINA
--- NOTE | 2016-09-01 10:58 | P.PN ---
Subjective Patient is seen in follow-up for acute kidney injury. Her baseline creatinine is 1 and peaked at 2.29 this admission. It is down to 1.04 today. 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 There was concern for endocarditis and she underwent a CLARIBEL which revealed no vegetations however she does have severe aortic stenosis, moderate to severe mitral regurgitation and pulmonary hypertension. She is nonoliguric. Hemoglobin was down to 6.3 again on 08/31/16 for which she did receive blood transfusion. Hemoglobin 7.7 this morning. She has been refusing a colonoscopy/EGD. No active bleeding. She does admit to dyspnea and and is maintained on Lasix 40 mg IV twice daily. She also underwent a thoracentesis on August 28 with 1.2 L drained. Her bicarb level is up to 42 today. Vital signs are stable. General: The patient appeared well nourished and normally developed. HEENT: Head exam is unremarkable. Neck is without jugular venous distension. LUNGS: Lungs are clear to auscultation and percussion. Breath sounds decreased. HEART: Rate and Rhythm are regular. First and second heart sounds normal. No murmurs, rubs or gallops. ABDOMEN: Abdominal exam reveals normal bowel sounds. Non-tender and non- distended. No evidence of peritonitis. EXTREMITITES: No clubbing, cyanosis, or edema. Objective - Vital Signs Vital signs: Vital Signs Temp 97.0 F L 09/01/16 07:00 Pulse 69 09/01/16 07:00 Resp 20 09/01/16 07:00 BP 122/52 09/01/16 07:00 Pulse Ox 99 09/01/16 07:00 Intake & Output 08/31/16 09/01/16 09/01/16 18:59 06:59 18:59 Intake Total 1120 620 Output Total 750 1600 Balance 370 -980 Intake: Intake, IV Titration 100 Amount ceFAZolin 2 gm In Sodium 100 Chloride 0.9% 100 ml @ 100 mls/hr IVPB Q12HR [facility] Rx#:[id number] Oral 400 300 Blood Product 620 320 Rc As-1 Unit 310 [id number] Rc As-3 Unit 0 [id number] Output: Urine 750 1600 Uretheral (Pham) 800 Stool 0 0 Other: Voiding Method Indwelling Catheter Indwelling Catheter # Voids 0 # Bowel Movements 0 - Labs CBC & Chem 7: 09/01/16 06:20 09/01/16 06:20 Labs: Abnormal Lab Results - Last 24 Hours (Table) 08/31/16 08/31/16 08/31/16 Range/Units 09:00 12:14 16:58 RBC (3.80-5.40) m/uL Hgb (11.4-16.0) gm/dL Hct (34.0-46.0) % MCHC (31.0-37.0) g/dL RDW (11.5-15.5) % Sodium (137-145) mmol/L Chloride (98-107) mmol/L Carbon Dioxide (22-30) mmol/L BUN (7-17) mg/dL Glucose (74-99) mg/dL POC Glucose (mg/dL) 256 H 177 H (75-99) mg/dL Calcium (8.4-10.2) mg/dL Total Protein (6.3-8.2) g/dL Albumin (3.5-5.0) g/dL Crossmatch See Detail 08/31/16 08/31/16 09/01/16 Range/Units 17:15 21:04 06:20 RBC 2.49 L 2.82 L (3.80-5.40) m/uL Hgb 6.6 L* 7.7 L (11.4-16.0) gm/dL Hct 22.1 L 24.5 L (34.0-46.0) % MCHC 30.0 L (31.0-37.0) g/dL RDW 15.7 H 15.9 H (11.5-15.5) % Sodium (137-145) mmol/L Chloride (98-107) mmol/L Carbon Dioxide (22-30) mmol/L BUN (7-17) mg/dL Glucose (74-99) mg/dL POC Glucose (mg/dL) 184 H (75-99) mg/dL Calcium (8.4-10.2) mg/dL Total Protein (6.3-8.2) g/dL Albumin (3.5-5.0) g/dL Crossmatch 09/01/16 09/01/16 Range/Units 06:20 07:05 RBC (3.80-5.40) m/uL Hgb (11.4-16.0) gm/dL Hct (34.0-46.0) % MCHC (31.0-37.0) g/dL RDW (11.5-15.5) % Sodium 136 L (137-145) mmol/L Chloride 88 L (98-107) mmol/L Carbon Dioxide 42 H* (22-30) mmol/L BUN 46 H (7-17) mg/dL Glucose 138 H (74-99) mg/dL POC Glucose (mg/dL) 157 H (75-99) mg/dL Calcium 8.2 L (8.4-10.2) mg/dL Total Protein 4.6 L (6.3-8.2) g/dL Albumin 2.3 L (3.5-5.0) g/dL Crossmatch Microbiology - Last 24 Hours (Table) 08/28/16 12:15 Gram Stain - Preliminary Pleural Fluid Body Fluid Culture - Preliminary Assessment and Plan Plan: Assessment: #1. Nonoliguric acute kidney injury secondary to ischemic ATN secondary to severe sepsis and anemia. Also being diuresed. Creatinine down to 1.04 today. Urinalysis noted to be benign. #2. Volume overload as evidenced by vascular congestion on previous chest x- ray. #3. Severe aortic stenosis and moderate to severe mitral regurgitation. #4. Moderate to severe pulmonary hypertension. #5. 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 #6. Anemia due to underlying GI bleed. Apparently she's been refusing colonoscopy. Status post multiple blood transfusions this admission. Gastroenterology following. Potential capsule endoscopy as an outpatient. #7. Hypernatremia secondary to lack of oral water intake. Resolved. #8. Hypokalemia secondary to diuresis. #9. Metabolic alkalosis secondary to volume contraction from diuresis. Plan: Continue Lasix 40 mg IV twice daily for now. I will add IV Diamox 250 mg twice daily. Avoid nephrotoxic agents and hypotensive episodes. Repeat electrolytes in the morning. Antibiotics per infectious disease recommendations. Monitor hemoglobin and transfuse as needed.
[2016-09-01 11:57] LABS: Glucose,Whole Blood 245 mg/dL (75-99)
--- NOTE | 2016-09-01 12:25 | P.PN ---
Subjective Principal diagnosis: Non ST elevation myocardial infarction, anemia 80-year-old female patient who initially presented on 08/13/2016 because of increased shortness of breath. The patient was ruled in for an acute non-ST segment elevation myocardial infarction. The patient is known to have coronary artery disease with previous bypass surgery. Other comorbid conditions include hypertension diabetes mellitus and hyperlipidemia and congestion heart failure. During this current hospitalization, the patient was also found to be septic with MRSA bacteremia, acute kidney injury secondary to acute ischemic trigger necrosis, sepsis, hypotension, pressor dependence, an acute transfusion reaction secondary to her packed RBC transfusion for which the patient was given for a low hemoglobin. The patient was also suspected to have a fracture of the left humerus. A CAT scan was done yesterday showed a comminuted fracture of the left humeral neck, and pathologic fracture was suspected with a concern of an underlying malignancy. There was soft tissue thickening in the area which could be related to edema post fracture or soft tissue mass. Note that I have seen this patient back in May 2016 for chest pain and suspected GI bleeding and back then was noted the patient sustained a fracture to her left humerus and this was being treated conservatively and she did not require any surgical intervention. The patient also is known to have history of syncope during which she did have had sustained the left humeral fracture, episodes of dysphagia, chronic anemia, small bowel obstruction related to a benign lesion of the intestine that was resected, chronic renal failure stage III kidney disease, CHF with diastolic dysfunction and ejection fraction of 55- 60%, aortic stenosis and previous coronary artery bypass surgery. On 08/17/2016 I'm seeing this patient in follow-up. The patient is resting comfortably in bed. The patient has no respiratory distress. Hemodynamically she is stable and the patient has been off dopamine for more than 12 hours. She is producing adequate amount of urine output. Her pulse ox is around 98% on 2 L of oxygen nasal cannula. She has a cardiac murmur which is related to aortic stenosis. As mentioned earlier, the patient had staph aureus Ammann MSSA and the blood, on 3 different blood cultures and the most recent blood cultures negative. For that reason, the patient was covered with cefazolin 2 g every 12 hours. Renal function is improving and creatinine is down to 1.5. Rest of the electrolytes show no major abnormalities. The patient continues to have a component of non-anion gap metabolic acidosis with a bicarb level of 18. The chest x-ray from admission showed evidence of any pneumonia. Echocardiogram from May 2016 showed a ejection fraction of 55-60% along with moderate degree of aortic stenosis. The patient is seen again today 08/18/2016 in follow-up on the regular medical floor. She is awake and alert in no acute distress. She did undergo transesophageal echocardiogram yesterday. There is no evidence of vegetation on any of the valves. There was noted severe aortic stenosis with moderate to severe mitral regurgitation and moderate to severe pulmonary hypertension. Today she denies any worsening shortness of breath. She is maintaining good O2 saturations in the mid 90s on 2 L/m per nasal cannula. She's been hemodynamically stable. She remains on cefazolin. Bicarb remains low at 18. She remains on sodium bicarbonate tablets. She remains in a negative balance. Creatinine improved to 1.50. Her hemoglobin is drifting down currently at 7.2. The patient is seen again today 08/19/2016 in follow-up on the regular medical floor. She is continuing to maintain O2 saturations in the 90s on 2 L/m. Nasal cannula. She is currently afebrile. No leukocytosis. Hemoglobin stable at 7.4. Bicarb is improved slightly at 20. Creatinine has recovered to 0.85. She did have a biopsy of the left shoulder results of which are pending. She still has significant discomfort in that shoulder. The patient was seen again today 08/21/2016 as she was now being transferred to the intensive care unit. She had developed recurrent GI bleeding. She had black tarry stools last night and a drop in her hemoglobin to 6.8. A repeat hemoglobin was 7.1 and then later today he was back to 6.3. She did have a previous reaction to a blood transfusion earlier this admission as well. Also noted was her INR 4.4. She did receive some vitamin K and it is currently 2.4. GI services and surgical services have been involved with her as well. Currently, she is seen resting fairly comfortable in bed. She is somewhat anxious due to her situation but denies any worsening shortness of breath, cough or congestion. No chest pain, no lightheadedness or dizziness. She is maintaining O2 saturations at 100% on 2 L/m per nasal cannula. She remains hemodynamically stable. Not requiring any pressor support. The patient is seen again today 08/22/2016 in the intensive care unit. She is awake and alert in no acute distress. She did receive a unit of transfer views packed red blood cells and her current hemoglobin is 8.4. INR 1.4. GI services are on the case and are she has not had any further black tarry stools considering EGD. The patient has continued to decline a colonoscopy. She has not had any further black tarry stools or hematoemesis. She continues on Protonix IV. Aspirate of the left shoulder did come back positive for methicillin sensitive Staphylococcus aureus in her blood cultures were also positive for MSSA. She has been maintained on cefazolin. She remains hemodynamically stable. She is maintaining good O2 saturations at 96% on room air. She is afebrile. Current creatinine 1.10. On 08/23/2016 the patient is on the medical floor. She is doing well. No specific complaints. No episodes of any GI bleeding. No fever or chills. No signs of septicemia. Still on IV cefazolin regarding MSSA bacteremia and possible osteomyelitis. No change in mental status. Hemoglobin is stable at 8.1. No nausea or vomiting. Tolerating diet. On 08/24/2016, patient is mostly complaining of slight nausea. No abdominal pain , no melena, no hematemesis, no evidence of GI bleeding, she is also complaining of slight shortness of breath. Remains on medications as noted for her MSSA bacteremia. Hemoglobin today is 8.4. Basic metabolic profile was reviewed, BUN is 53 creatinine is 1.17. The patient is seen again today 08/25/2016 in follow-up on the regular medical floor. She is awake and alert in no acute distress. She remains quite weak and mainly in bed at this point. She is maintaining good O2 saturations in the upper 90s on room air. She is afebrile. No further active bleeding documented. Current hemoglobin 8.2. White count 11.4. Creatinine 1.31. She remains on cefazolin for her MSSA and both the blood and the bone aspirate. The patient seen again today 08/26/2016 in follow-up on the regular medical floor. She did have episode of shortness of breath yesterday afternoon. A chest x-ray was consistent with congestive heart failure but not significantly worse as compared to previous. She is on Lasix 40 mg IV every 12 hours. Her renal function is about the same current creatinine 1.27. BUN 52. He remains on bicarb 650 mg twice a day. Her hemoglobin is 7.9 today. There are no plans for EGD/colonoscopy as the patient has continued to decline them as offered by GI services. He has been afebrile. Hemodynamically stable. Maintaining good O2 saturations in the 90s on room air. She remains on cefazolin for the MSSA bacteremia and left shoulder aspirate. A PICC line was placed yesterday. The patient is seen again today 08/27/2016 in follow-up in the regular medical floor. Her chest x-ray does continue to show evidence of congestive heart failure and some small pleural effusions. She is still requiring 2 L/m per nasal cannula to maintain O2 saturations in the 90s. We'll plan to do an ultrasound of the chest to determine if there is enough fluid for thoracentesis today. The patient is seen again today 08/28/2016 in follow-up on the regular medical floor. She is awake and alert in no acute distress. Her main complaint is that of nausea. No worsening shortness of breath, cough or congestion. She is dyspneic on minimal exertion however. Ultrasound of the chest did reveal a 9.2 cm pocket of fluid on the right and a 5.8 cm pocket of fluid on the left. We' ll plan for right sided thoracentesis today. The patient and her family at the bedside are agreeable. She is maintaining good O2 saturations in the high 90s on 2 L/m per nasal cannula. She's been hemodynamically stable. Current hemoglobin 7.8. The patient is seen again today 08/29/2016 in follow-up on the regular medical floor. She is currently awake and alert in no acute distress. She is breathing slightly better today as compared to yesterday. She did have a thoracentesis performed with approximately 1.2 L of fluid removed. Fluid analysis is pending. Her chest x-ray did reveal significant improvement in the right lung pleural effusion however she continues with a moderate-sized left pleural effusion as well. We'll plan to perform a thoracentesis today. He is maintaining good O2 saturations in the high 90s on 2 L/m per nasal cannula. She is currently afebrile. Her hemoglobin continues to drift down currently at 7.0. No signs of active bleeding. Her renal function has improved to creatinine of 1.01. On 08/30/2016, patient is about the same. I was planning to do a left-sided thoracentesis on this patient yesterday, however we had difficulty placing the patient in the proper disposition because of her left shoulder pain. I could not raise the left upper extremity up enough to safely perform a safety thoracentesis. Hence I decided to treat her pleural effusion medically rather than surgically. Her right-sided pleural effusion has completely resolved based on the last chest x-ray, however her small pleural effusions and the left side is about 5 cm pocket, hoping it will improve with diuretics only. Patient is still complaining of aches and pains, some shortness of breath, no chest pain , no nausea, no vomiting, no melena and no hematemesis. Hemoglobin is 7.7 WBC count is 8.0. Last chest x-ray was from 08/28, and I plan to repeat chest x-ray in a.m. On 08/31/2016, patient remains generally weak, fatigued, had apparently intermittent episodes of nausea and vomiting last night. No documented melena or hematemesis, however her hemoglobin today is 6.3. Her admitting physician was notified by the nurses, and the patient is to receive 1 unit of packed RBCs today, and follow-up hemoglobin will be retested. Pulmonary-mar patient is about the same, continues to have a small left pleural effusion, the right- sided pleural effusion has completely resolved after the last thoracentesis. I still believe the patient will likely benefit from left thoracentesis, however positioning the patient was quite difficult to be able to do a safety thoracentesis, and I have recommended medical treatment rather than surgical intervention. Overall, the patient is not making significant dramatic recovery , based on the fact that she has multiple comorbidities as noted above. The patient is seen again today 09/01/2016 in follow-up on the regular medical floor. She is currently awake and alert in no acute distress. She is asking to go home. She denies any worsening shortness of breath, cough or congestion. Her chest x-ray continues to show some small left pleural effusion. She remains on diuretics. Her hemoglobin remains stable at 7.7. She is status post a total of 4 units of packed red blood cells since her admission. She remains on appropriate antibiotics for Staphylococcus aureus bacteremia and left shoulder infection. Objective - Vital Signs Vital signs: Vital Signs Temp 97.0 F L 09/01/16 07:00 Pulse 65 09/01/16 11:48 Resp 14 09/01/16 11:48 BP 122/52 09/01/16 07:00 Pulse Ox 95 09/01/16 11:35 Intake & Output 08/31/16 09/01/16 09/01/16 18:59 06:59 18:59 Intake Total 1120 620 Output Total 750 1600 Balance 370 -980 Intake: Intake, IV Titration 100 Amount ceFAZolin 2 gm In Sodium 100 Chloride 0.9% 100 ml @ 100 mls/hr IVPB Q12HR [facility] Rx#:[id number] Oral 400 300 Blood Product 620 320 Rc As-1 Unit 310 [id number] Rc As-3 Unit 0 [id number] Output: Urine 750 1600 Uretheral (Pham) 800 Stool 0 0 Other: Voiding Method Indwelling Catheter Indwelling Catheter # Voids 0 # Bowel Movements 0 - Exam GENERAL EXAM: Weak, pale. EYES: Normal reaction of pupils, equal size. NOSE: Clear with pink turbinates. THROAT: No erythema or exudates. NECK: No masses, no JVD. CHEST: No chest wall deformity. LUNGS: Equal air entry with crackles in the posterior bases more so on the left. CVS: S1 and S2 normal with an audible murmur, regular rhythm. ABDOMEN: No hepatosplenomegaly, normal bowel sounds, no guarding or rigidity. Extremities: There is 1+ peripheral edema. No clubbing, no cyanosis. Peripheral pulses are intact. - Labs CBC & Chem 7: 09/01/16 06:20 09/01/16 06:20 Labs: Abnormal Lab Results - Last 24 Hours (Table) 08/31/16 08/31/16 08/31/16 Range/Units 09:00 16:58 17:15 RBC 2.49 L (3.80-5.40) m/uL Hgb 6.6 L* (11.4-16.0) gm/dL Hct 22.1 L (34.0-46.0) % MCHC 30.0 L (31.0-37.0) g/dL RDW 15.7 H (11.5-15.5) % Sodium (137-145) mmol/L Chloride (98-107) mmol/L Carbon Dioxide (22-30) mmol/L BUN (7-17) mg/dL Glucose (74-99) mg/dL POC Glucose (mg/dL) 177 H (75-99) mg/dL Calcium (8.4-10.2) mg/dL Total Protein (6.3-8.2) g/dL Albumin (3.5-5.0) g/dL Crossmatch See Detail 08/31/16 09/01/16 09/01/16 Range/Units 21:04 06:20 06:20 RBC 2.82 L (3.80-5.40) m/uL Hgb 7.7 L (11.4-16.0) gm/dL Hct 24.5 L (34.0-46.0) % MCHC (31.0-37.0) g/dL RDW 15.9 H (11.5-15.5) % Sodium 136 L (137-145) mmol/L Chloride 88 L (98-107) mmol/L Carbon Dioxide 42 H* (22-30) mmol/L BUN 46 H (7-17) mg/dL Glucose 138 H (74-99) mg/dL POC Glucose (mg/dL) 184 H (75-99) mg/dL Calcium 8.2 L (8.4-10.2) mg/dL Total Protein 4.6 L (6.3-8.2) g/dL Albumin 2.3 L (3.5-5.0) g/dL Crossmatch 09/01/16 09/01/16 Range/Units 07:05 11:55 RBC (3.80-5.40) m/uL Hgb (11.4-16.0) gm/dL Hct (34.0-46.0) % MCHC (31.0-37.0) g/dL RDW (11.5-15.5) % Sodium (137-145) mmol/L Chloride (98-107) mmol/L Carbon Dioxide (22-30) mmol/L BUN (7-17) mg/dL Glucose (74-99) mg/dL POC Glucose (mg/dL) 157 H 245 H (75-99) mg/dL Calcium (8.4-10.2) mg/dL Total Protein (6.3-8.2) g/dL Albumin (3.5-5.0) g/dL Crossmatch Microbiology - Last 24 Hours (Table) 08/28/16 12:15 Gram Stain - Final Pleural Fluid Body Fluid Culture - Final Assessment and Plan Plan: Impression: #1 Non-ST segment elevation myocardial infarction. #2 Anemia, with recurrent bleeding. Status post 4 units of red blood cells. Current hemoglobin 7.7. GI services was on the case. #3 Sepsis secondary to Methicillin Sensitive Staphylococcus aureus in both the blood and left shoulder aspirate. #4 Febrile illness secondary to above and suspected urinary tract infection as well. #5 Acute exacerbation of diastolic congestive heart failure. #6 Hyperlipidemia. #7 Diabetes mellitus. #8 Hypertension. #9 History of coronary artery disease with previous coronary artery bypass grafting. #10 Left upper extremity pain secondary to recent left humeral fracture. Aspirate is positive for MSSA. #11 Valvular heart disease with severe aortic stenosis, moderate to severe mitral regurgitation, moderate to severe pulmonary hypertension. #12 Acute kidney injury secondary to hypotension/hypo-profusion. Current creatinine 1.04. #13 Bilateral pleural effusions more so on the right, status post 1.2 L of fluid removed from the right lung. No plans for left-sided thoracentesis at this time. #14 Poor overall functional performance based on the above-mentioned multiple comorbidities. Plan: The patient was seen and evaluated by Dr. Uribe. The chest xray and labs were reviewed. No plans for left-sided thoracentesis at this time. We'll continue with her diuretics. Continue to monitor hemoglobin. Will increase her activity as tolerated. We will continue to follow.
[2016-09-01 16:56] LABS: Glucose,Whole Blood 172 mg/dL (75-99)
--- NOTE | 2016-09-01 17:14 | P.PN ---
Subjective This is a 80-year-old female, patient of [facility]. She has a known past medical history of myocardial infarction and three-vessel coronary artery bypass graft, coronary artery disease, hyperlipidemia, hypertension, diabetes, chronic kidney disease and dementia. Also history of anemia with recent EGD and May 2016 revealing gastritis colonoscopy was several years ago. She presents to the hospital with complaints of chest pain, abdominal pain , black stools with episodes of diarrhea. She's found have evidence of a non- ST elevated [place]. Not able to be on aspirin or IV heparin at this time due to her significant anemia. Patient is found to have a UTI as well as positive blood cultures growing presumptive staph aureus. Patient was reevaluated again on 08/19/2016 Today patient is complaining of chest pain, she will be transferred back to telemetry floor, order stool restart IV heparin and to reconsult cardiology were initiated Patient reevaluated on 08/20/2016 see note by Melyssa GARLAND Patient was evaluated on 08/21/2016 Hgb down to 6.8 patient having shortness of breath she was transferred back to ICU Objective - Vital Signs Vital signs: Vital Signs Temp 97.2 F L 09/01/16 15:00 Pulse 65 09/01/16 16:00 Resp 20 09/01/16 16:00 BP 112/56 09/01/16 15:00 Pulse Ox 100 09/01/16 15:00 Intake & Output 08/31/16 09/01/16 09/01/16 18:59 06:59 18:59 Intake Total 1120 620 Output Total 750 1600 0 Balance 370 -980 0 Weight 79 kg Intake: Intake, IV Titration 100 Amount ceFAZolin 2 gm In Sodium 100 Chloride 0.9% 100 ml @ 100 mls/hr IVPB Q12HR [facility] Rx#:[id number] Oral 400 300 Blood Product 620 320 Rc As-1 Unit 310 [id number] Rc As-3 Unit 0 [id number] Output: Urine 750 1600 Uretheral (Pham) 800 Stool 0 0 0 Other: Voiding Method Indwelling Catheter Indwelling Catheter Indwelling Catheter # Voids 0 # Bowel Movements 0 1 - Exam In general patient is alert and oriented 3 in no apparent distress HEENT head normocephalic and atraumatic Neck is supple no JVD no goiter no lymphadenopathy Chest exam reveals a few scattered rhonchi no wheezing Cardiac exam reveals regular heart sounds S1 and S2 with mild tachycardia no gallops no murmurs Abdomen is soft nontender no organomegaly Extremity exam reveals no edema no cyanosis or clubbing - Labs CBC & Chem 7: 09/01/16 06:20 09/01/16 06:20 Labs: Abnormal Lab Results - Last 24 Hours (Table) 08/31/16 08/31/16 08/31/16 Range/Units 09:00 17:15 21:04 RBC 2.49 L (3.80-5.40) m/uL Hgb 6.6 L* (11.4-16.0) gm/dL Hct 22.1 L (34.0-46.0) % MCHC 30.0 L (31.0-37.0) g/dL RDW 15.7 H (11.5-15.5) % Sodium (137-145) mmol/L Chloride (98-107) mmol/L Carbon Dioxide (22-30) mmol/L BUN (7-17) mg/dL Glucose (74-99) mg/dL POC Glucose (mg/dL) 184 H (75-99) mg/dL Calcium (8.4-10.2) mg/dL Total Protein (6.3-8.2) g/dL Albumin (3.5-5.0) g/dL Crossmatch See Detail 09/01/16 09/01/16 09/01/16 Range/Units 06:20 06:20 07:05 RBC 2.82 L (3.80-5.40) m/uL Hgb 7.7 L (11.4-16.0) gm/dL Hct 24.5 L (34.0-46.0) % MCHC (31.0-37.0) g/dL RDW 15.9 H (11.5-15.5) % Sodium 136 L (137-145) mmol/L Chloride 88 L (98-107) mmol/L Carbon Dioxide 42 H* (22-30) mmol/L BUN 46 H (7-17) mg/dL Glucose 138 H (74-99) mg/dL POC Glucose (mg/dL) 157 H (75-99) mg/dL Calcium 8.2 L (8.4-10.2) mg/dL Total Protein 4.6 L (6.3-8.2) g/dL Albumin 2.3 L (3.5-5.0) g/dL Crossmatch 09/01/16 09/01/16 Range/Units 11:55 16:50 RBC (3.80-5.40) m/uL Hgb (11.4-16.0) gm/dL Hct (34.0-46.0) % MCHC (31.0-37.0) g/dL RDW (11.5-15.5) % Sodium (137-145) mmol/L Chloride (98-107) mmol/L Carbon Dioxide (22-30) mmol/L BUN (7-17) mg/dL Glucose (74-99) mg/dL POC Glucose (mg/dL) 245 H 172 H (75-99) mg/dL Calcium (8.4-10.2) mg/dL Total Protein (6.3-8.2) g/dL Albumin (3.5-5.0) g/dL Crossmatch Microbiology - Last 24 Hours (Table) 08/28/16 12:15 Gram Stain - Final Pleural Fluid Body Fluid Culture - Final Assessment and Plan Plan: #1 Non-ST segment elevation myocardial infarction. Evaluated by cardiology during this admission, no intervention recommended so far #2 Anemia, suspect possible GI bleed in a patient with recent EGD in May 2016, and last colonoscopy 2010. Gastroenterology following, will proceed with colonoscopy when general medical condition improves. HGB 7.9 today Will give her a dose of IV iron and monitor hemoglobin closely #3 Sepsis, blood culture positive for Staphylococcus aureus. Currently maintained on IV Cefazolin #4 Febrile illness secondary to above and suspected urinary tract infection as well. #5 Acute exacerbation of diastolic congestive heart failure. #6 Hyperlipidemia. #7 Diabetes mellitus. #8 Hypertension. #9 History of coronary artery disease with previous coronary artery bypass grafting. #10 Left upper extremity pain secondary to recent left humeral fracture. #11 Valvular heart disease with severe aortic stenosis, moderate to severe mitral regurgitation, moderate to severe pulmonary hypertension. #12 Acute kidney injury secondary to hypotension and hypoprofusion improved cr 1.1 yesterday , will recheck labs in am # 13 Elevated INR not on any anticoagulation Dr Song following Medication and labs were reviewed continue was current management prognosis is guarded due to age and severity of illness
[2016-09-01 20:43] LABS: Glucose,Whole Blood 152 mg/dL (75-99)
[2016-09-01] MEDS: DONEPEZIL 10 MG TAB PO SCH (21:33)
[2016-09-01] MEDS: CHOLECALCIFEROL 1,000 UNIT TAB PO SCH (21:33)
[2016-09-01] MEDS: SERTRALINE 100 MG TAB PO SCH (21:34)
[2016-09-01] MEDS: MELATONIN 5 MG TABLET PO SCH (21:34)
[2016-09-01] MEDS: MULTIVITAMINS, THERA 1 EACH TAB PO SCH (21:34)
[2016-09-01] MEDS: ATORVASTATIN 40 MG TAB PO SCH (21:34)
[2016-09-01] MEDS: FENOFIBRATE 160 MG TAB PO SCH (21:34)
--- NOTE | 2016-09-02 05:24 | PN ---
DATE OF SERVICE: 09/01/2016 Reason for followup is MSSA bacteremia with left humerus osteomyelitis. INTERVAL HISTORY: The patient is afebrile. She has been complaining of pain in her left shoulder area. Patient denies significant chest pain with occasional cough. Some discomfort in the abdominal area, but no vomiting. On examination, blood pressure is 112/56 with a pulse of 64, temperature 97.2. She is 100% on 3 L nasal cannula. General description is an elderly female lying in bed in no distress. RESPIRATORY SYSTEM: Unlabored breathing. Clear to auscultation anteriorly. HEART: S1, S2. Regular rate and rhythm. ABDOMEN: Soft, no tenderness. Left shoulder is current in a sling with some marked tenderness noticed LABS: Hemoglobin is 7.7, white count 7.8 with a BUN of 46 creatinine 1.04. DIAGNOSTIC IMPRESSION AND PLAN: The patient with methicillin-susceptible Staphylococcus aureus bacteremia with left humerus osteomyelitis currently covered with cefazolin that will be continued. Follow up blood culture has been negative so far. Once stabilized from the other consultants, she will be able to go to rehab to finish her antibiotic therapy with outpatient followup. Continue supportive care. CHRISTINA
[2016-09-02 07:11] LABS: Glucose,Whole Blood 129 mg/dL (75-99)
[2016-09-02 07:28] LABS: Calcium 8.3 mg/dL (8.4-10.2); Potassium 3.6 mmol/L (3.5-5.1); Total Bilirubin 0.3 mg/dL (0.2-1.3); Total Protein 4.8 g/dL (6.3-8.2)
[2016-09-02] MEDS: IPRATROPIUM-ALBUTEROL 3 ML NEB INHALATION SCH ×4 (07:31→19:17)
[2016-09-02] MEDS: INSULIN LISPRO (humaLOG) 300 UNIT/3 ML VIAL SQ SCH ×4 (08:38→22:25)
[2016-09-02] MEDS: METOPROLOL TARTRATE 25 MG TAB PO SCH ×2 (08:39→20:54)
[2016-09-02] MEDS: PANTOPRAZOLE 40 MG TABLET PO SCH (08:39)
[2016-09-02] MEDS: EZETIMIBE 10 MG TAB PO SCH (08:39)
[2016-09-02] MEDS: DOCUSATE 100 MG CAP PO SCH (08:40)
[2016-09-02] MEDS: ISOSORBIDE MONONITRATE ER 30 MG TAB.ER.24H PO SCH (08:41)
[2016-09-02] MEDS: FUROSEMIDE 10 MG/ML 4 ML VIAL IV SCH ×2 (08:41→10:55)
[2016-09-02] MEDS: POLYETHYLENE GLYCOL 3350 17 GM POWD.PACK PO SCH (08:41)
[2016-09-02] MEDS: ceFAZolin 2 GM in SODIUM CHLORIDE 0.9% 100 ML IVPB SCH ×2 (08:58→21:08)
--- NOTE | 2016-09-02 10:49 | P.PN ---
Subjective Patient is seen in follow-up for acute kidney injury. Her baseline creatinine is 1 and peaked at 2.29 this admission. It was down to 1.04 yesterday and is 1.17 today. 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 There was concern for endocarditis and she underwent a CLARIBEL which revealed no vegetations however she does have severe aortic stenosis, moderate to severe mitral regurgitation and pulmonary hypertension. She is nonoliguric. Hemoglobin was down to 6.3 again on 08/31/16 for which she did receive blood transfusion. Hemoglobin 7.7 this morning. She has been refusing a colonoscopy/EGD. No active bleeding. She does admit to dyspnea which is improved today and is maintained on Lasix 40 mg IV twice daily. She also underwent a thoracentesis on August 28 with 1.2 L drained. Her bicarb level is up to 44 today. Vital signs are stable. General: The patient appeared well nourished and normally developed. HEENT: Head exam is unremarkable. Neck is without jugular venous distension. LUNGS: Lungs are clear to auscultation and percussion. Breath sounds decreased. HEART: Rate and Rhythm are regular. First and second heart sounds normal. No murmurs, rubs or gallops. ABDOMEN: Abdominal exam reveals normal bowel sounds. Non-tender and non- distended. No evidence of peritonitis. EXTREMITITES: No clubbing, cyanosis, or edema. Objective - Vital Signs Vital signs: Vital Signs Temp 97 F L 09/02/16 07:00 Pulse 68 09/02/16 07:47 Resp 20 09/02/16 07:00 BP 117/56 09/02/16 07:00 Pulse Ox 100 09/02/16 07:00 Intake & Output 09/01/16 09/02/16 09/02/16 18:59 06:59 18:59 Intake Total 200 Output Total 900 650 Balance -900 -450 Weight 79 kg Intake: Oral 200 Output: Urine 900 650 Stool 0 Other: Voiding Method Indwelling Catheter Indwelling Catheter # Voids 0 # Bowel Movements 1 2 - Labs CBC & Chem 7: 09/01/16 06:20 09/02/16 06:40 Labs: Abnormal Lab Results - Last 24 Hours (Table) 09/01/16 09/01/16 09/01/16 Range/Units 11:55 16:50 20:32 Sodium (137-145) mmol/L Chloride (98-107) mmol/L Carbon Dioxide (22-30) mmol/L BUN (7-17) mg/dL Creatinine (0.52-1.04) mg/dL Glucose (74-99) mg/dL POC Glucose (mg/dL) 245 H 172 H 152 H (75-99) mg/dL Calcium (8.4-10.2) mg/dL Total Protein (6.3-8.2) g/dL Albumin (3.5-5.0) g/dL 09/02/16 09/02/16 Range/Units 06:40 07:06 Sodium 134 L (137-145) mmol/L Chloride 85 L (98-107) mmol/L Carbon Dioxide 44 H* (22-30) mmol/L BUN 40 H (7-17) mg/dL Creatinine 1.17 H (0.52-1.04) mg/dL Glucose 119 H (74-99) mg/dL POC Glucose (mg/dL) 129 H (75-99) mg/dL Calcium 8.3 L (8.4-10.2) mg/dL Total Protein 4.8 L (6.3-8.2) g/dL Albumin 2.4 L (3.5-5.0) g/dL Microbiology - Last 24 Hours (Table) 08/28/16 12:15 Gram Stain - Final Pleural Fluid Body Fluid Culture - Final Assessment and Plan Plan: Assessment: #1. Nonoliguric acute kidney injury secondary to ischemic ATN secondary to severe sepsis and anemia. Also being diuresed. Creatinine mildly worse today at 1.17. Urinalysis noted to be benign. #2. Volume overload as evidenced by vascular congestion on previous chest x- ray. Improving. #3. Severe aortic stenosis and moderate to severe mitral regurgitation. #4. Moderate to severe pulmonary hypertension. #5. 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 #6. Anemia due to underlying GI bleed. Apparently she's been refusing colonoscopy. Status post multiple blood transfusions this admission. Gastroenterology following. Potential capsule endoscopy as an outpatient. #7. Hypernatremia secondary to lack of oral water intake. Resolved. #8. Hypokalemia secondary to diuresis. #9. Metabolic alkalosis secondary to volume contraction from diuresis. Plan: Hold tonight's dose of Lasix. I will increase IV Diamox to 500 mg twice daily. Check ABG. Avoid nephrotoxic agents and hypotensive episodes. Repeat electrolytes in the morning. Antibiotics per infectious disease recommendations. Monitor hemoglobin and transfuse as needed.
--- NOTE | 2016-09-02 11:07 | P.PN ---
Subjective Principal diagnosis: Anemia sepsis bacteremia 80-year-old female admitted with acute non-ST elevated DE with chest pain and elevated troponins with abdominal pain, MSSA bacteremia site of the left humerus and osteomyelitis, anemia with subsequent GI bleed melanotic stool. Nursing reports black colored bowel movement this morning. Hemoglobin 6.3 over weekend received 1 unit of blood. EGD colonoscopy was discussed over the past few weeks in regards to workup of her anemia however on 2 occasions she has declined. Colonoscopy planned once she was medically optimized. Objective - Vital Signs Vital signs: Vital Signs Temp 97 F L 09/02/16 07:00 Pulse 68 09/02/16 07:47 Resp 20 09/02/16 07:00 BP 117/56 09/02/16 07:00 Pulse Ox 100 09/02/16 07:00 Intake & Output 09/01/16 09/02/16 09/02/16 18:59 06:59 18:59 Intake Total 200 Output Total 900 650 Balance -900 -450 Weight 79 kg Intake: Oral 200 Output: Urine 900 650 Stool 0 Other: Voiding Method Indwelling Catheter Indwelling Catheter # Voids 0 # Bowel Movements 1 2 - Exam General appearance: The patient is alert, no acute distress anxious. HET: Head is normocephalic and atraumatic. Pupils are equal and reactive. Oropharynx is clear without lesions. Neck: Supple without lymphadenopathy. Trachea midline. Heart: S1 S2. Regular rate and rhythm. Lungs: Mr. bases bilaterally. Abdomen: Soft, mildly bloated with diffuse mild tenderness across mid abdomen with bowel sounds. No peritoneal signs. No palpable organomegaly or masses. Extremities: Left arm sling. PICC line without erythema or drainage. Neurological: No focal deficits. Strength and sensation are grossly intact. Rectal: soft black stool. - Labs CBC & Chem 7: 09/01/16 06:20 09/02/16 06:40 Labs: Abnormal Lab Results - Last 24 Hours (Table) 09/01/16 09/01/16 09/01/16 Range/Units 11:55 16:50 20:32 Sodium (137-145) mmol/L Chloride (98-107) mmol/L Carbon Dioxide (22-30) mmol/L BUN (7-17) mg/dL Creatinine (0.52-1.04) mg/dL Glucose (74-99) mg/dL POC Glucose (mg/dL) 245 H 172 H 152 H (75-99) mg/dL Calcium (8.4-10.2) mg/dL Total Protein (6.3-8.2) g/dL Albumin (3.5-5.0) g/dL 09/02/16 09/02/16 Range/Units 06:40 07:06 Sodium 134 L (137-145) mmol/L Chloride 85 L (98-107) mmol/L Carbon Dioxide 44 H* (22-30) mmol/L BUN 40 H (7-17) mg/dL Creatinine 1.17 H (0.52-1.04) mg/dL Glucose 119 H (74-99) mg/dL POC Glucose (mg/dL) 129 H (75-99) mg/dL Calcium 8.3 L (8.4-10.2) mg/dL Total Protein 4.8 L (6.3-8.2) g/dL Albumin 2.4 L (3.5-5.0) g/dL Microbiology - Last 24 Hours (Table) 08/28/16 12:15 Gram Stain - Final Pleural Fluid Body Fluid Culture - Final Assessment and Plan Plan: 1. Normocytic hypochromic iron deficiency anemia component of acute blood loss secondary to acute active GI bleed with melena with drop in hemoglobin. 2. History of recent GI bleed anemia status post EGD May 2016 with findings of mild diffuse gastritis. Colonoscopy 2011 polypectomy. Source of melanotic stool could be small bowel pathology. 3. Bacteremia with Staphylococcus aureus blood cultures. Status post CLARIBEL. Left humerus osteomyelitis. 4. Status post fall 3 months ago FNA left humerus bone no evidence of carcinoma. 5. Non-ST elevated [place]. 6. Congestive heart failure. Plan: 1. Clear Liquids. Nothing by mouth after midnight. 2. Serial CBC every 6 hours. 3. PT/INR. 4. EGD evaluation tomorrow possible small bowel capsule endoscopy based on EGD findings. Continue GI prophylaxis. 5. Colonoscopy contingent on medical course. We'll continue to evaluate. Assessment and plan a care discussed with Dr. Santiago.
--- NOTE | 2016-09-02 11:09 | PN ---
This is an 80-year-old female, very frail. She is doing about the same as she was yesterday when we saw her in evaluation. She wants to go home. She denies any worsening of her shortness of breath. Denies any cough or chest congestion. Not coughing up any phlegm. She does have a small left pleural effusion. She remains on diuretics. Her hemoglobin is reasonably stable. She has required 4 units of PRBCs since her admission. The patient is on appropriate antibiotic for her Staph aureus bacteremia and left shoulder infection. She has a history of non-ST segment elevation myocardial infarction, anemia, sepsis secondary to MRSA, diastolic CHF, hyperlipidemia, diabetes, hypertension, CAD with previous bypass grafting, left upper extremity pain secondary humeral fracture, valvular heart disease, pulmonary hypertension, mitral regurgitation, acute kidney injury, bilateral pleural effusions, status post thoracentesis and overall general medical debility. Vital signs are reviewed. Temperature 97, heart rate 68, respiratory rate 20, blood pressure 117/56, mean 76, saturations are 100% on 3 L. Appears in no acute distress. HEENT examination is grossly unremarkable. Mucous membranes are moist. No oral lesions. Neck is supple. Full range of motion. No adenopathy. Neck veins are flat. Cardiovascular examination reveals distant heart sounds. S1, S2 normal. There is a soft systolic murmur. No S3, S4. Lungs reveal relatively clear breath sounds. A few scattered rhonchi. No wheezes or crackles. Abdomen is soft. Bowel sounds are heard. Extremities are intact. No cyanosis, clubbing or edema. Skin is without rash. Her left arm is in a sling. Labs are reviewed. Sodium 134, potassium 3.6, chloride 85, CO2 of 44, BUN and creatinine were 40 and 1.17. The rest of the labs look okay. No recent chest x-ray. ASSESSMENT: 1. Non-ST segment-elevation myocardial infarction. 2. Anemia, status post 4 units of PRBCs. 3. Sepsis secondary to number. 4. Urinary tract infection. 5. Diastolic congestive heart failure. 6. Hyperlipidemia. 7. Diabetes. 8. Hypertension. 9. Coronary artery disease/coronary artery bypass grafting. 10. Left humeral fracture. 11. Valvular heart disease. 12. Pulmonary hypertension. 13. Mitral regurgitation. 14. Acute kidney injury. 15. Status post right-sided thoracentesis for large right pleural effusion. 16. General medical debility. PLAN: The patient is doing better. Will continue to follow. No additional recommendations are made at this time. No additional thoracentesis. Will continue to watch the hemoglobin. Respiratory status is currently stable.
[2016-09-02 11:23] LABS: ABG Base Excess 16.9 mmol/L; ABG HCO3 42 mmol/L (21-25); ABG Oxygen Saturation 94.3 % (94-97); ABG PCO2 54 mmHg (35-45); ABG PO2 68 mmHg (83-108); ABG TCO2 43 mmol/L (19-24)
[2016-09-02] MEDS: HYDROcodone/APAP 10-325MG 1 EACH TAB PO PRN ×2 (11:48→20:49)
[2016-09-02 12:14] LABS: CH 27.1; CHCM 30.3; HCT 22.1 % (34.0-46.0); HDW 4.11; Hypochromasia Marked; MCHC 30.1 g/dL (31.0-37.0); MCV 89.9 fL (80.0-100.0); Mean Platelet Volume 7.3; Poikilocytosis Moderate; RBC 2.46 m/uL (3.80-5.40); RDW 15.5 % (11.5-15.5)
[2016-09-02 12:28] LABS: Glucose,Whole Blood 204 mg/dL (75-99)
[2016-09-02 12:32] LABS: HGB 6.7 gm/dL (11.4-16.0)
[2016-09-02 13:00] LABS: Prothrombin Time 104.4 sec (9.0-12.0)
[2016-09-02 13:21] LABS: INR 9.8 (<1.1)
[2016-09-02] MEDS ORDERED: PHYTONADIONE ORAL 5 MG/5 ML ORAL.SYRG PO STA (13:31)
--- NOTE | 2016-09-02 13:59 | P.PN ---
Subjective This is a 80-year-old female, patient of [facility]. She has a known past medical history of myocardial infarction and three-vessel coronary artery bypass graft, coronary artery disease, hyperlipidemia, hypertension, diabetes, chronic kidney disease and dementia. Also history of anemia with recent EGD and May 2016 revealing gastritis colonoscopy was several years ago. She presents to the hospital with complaints of chest pain, abdominal pain , black stools with episodes of diarrhea. She's found have evidence of a non- ST elevated [place]. Not able to be on aspirin or IV heparin at this time due to her significant anemia. Patient is found to have a UTI as well as positive blood cultures growing presumptive staph aureus. Patient was reevaluated again on 08/19/2016 Today patient is complaining of chest pain, she will be transferred back to telemetry floor, order stool restart IV heparin and to reconsult cardiology were initiated Patient reevaluated on 08/20/2016 see note by Melyssa GARLAND Patient was evaluated on 08/21/2016 Hgb down to 6.8 patient having shortness of breath she was transferred back to ICU Objective - Vital Signs Vital signs: Vital Signs Temp 97 F L 09/02/16 07:00 Pulse 68 09/02/16 07:47 Resp 20 09/02/16 07:00 BP 117/56 09/02/16 07:00 Pulse Ox 100 09/02/16 07:00 Intake & Output 09/01/16 09/02/16 09/02/16 18:59 06:59 18:59 Intake Total 200 0 Output Total 900 650 Balance -900 -450 0 Weight 79 kg Intake: Oral 200 Blood Product 0 Rc As-1 Unit 0 [id number] Output: Urine 900 650 Stool 0 Other: Voiding Method Indwelling Catheter Indwelling Catheter # Voids 0 # Bowel Movements 1 2 - Exam In general patient is alert and oriented 3 in no apparent distress HEENT head normocephalic and atraumatic Neck is supple no JVD no goiter no lymphadenopathy Chest exam reveals a few scattered rhonchi no wheezing Cardiac exam reveals regular heart sounds S1 and S2 with mild tachycardia no gallops no murmurs Abdomen is soft nontender no organomegaly Extremity exam reveals no edema no cyanosis or clubbing - Labs CBC & Chem 7: 09/02/16 11:40 09/02/16 06:40 Labs: Abnormal Lab Results - Last 24 Hours (Table) 08/31/16 09/01/16 09/01/16 Range/Units 09:00 16:50 20:32 RBC (3.80-5.40) m/uL Hgb (11.4-16.0) gm/dL Hct (34.0-46.0) % MCHC (31.0-37.0) g/dL PT (9.0-12.0) sec INR (<1.1) ABG pH (7.35-7.45) ABG pCO2 (35-45) mmHg ABG pO2 (83-108) mmHg ABG HCO3 (21-25) mmol/L ABG Total CO2 (19-24) mmol/L Sodium (137-145) mmol/L Chloride (98-107) mmol/L Carbon Dioxide (22-30) mmol/L BUN (7-17) mg/dL Creatinine (0.52-1.04) mg/dL Glucose (74-99) mg/dL POC Glucose (mg/dL) 172 H 152 H (75-99) mg/dL Calcium (8.4-10.2) mg/dL Total Protein (6.3-8.2) g/dL Albumin (3.5-5.0) g/dL Crossmatch See Detail 09/02/16 09/02/16 09/02/16 Range/Units 06:40 07:06 11:09 RBC (3.80-5.40) m/uL Hgb (11.4-16.0) gm/dL Hct (34.0-46.0) % MCHC (31.0-37.0) g/dL PT (9.0-12.0) sec INR (<1.1) ABG pH 7.50 H (7.35-7.45) ABG pCO2 54 H (35-45) mmHg ABG pO2 68 L (83-108) mmHg ABG HCO3 42 H* (21-25) mmol/L ABG Total CO2 43 H (19-24) mmol/L Sodium 134 L (137-145) mmol/L Chloride 85 L (98-107) mmol/L Carbon Dioxide 44 H* (22-30) mmol/L BUN 40 H (7-17) mg/dL Creatinine 1.17 H (0.52-1.04) mg/dL Glucose 119 H (74-99) mg/dL POC Glucose (mg/dL) 129 H (75-99) mg/dL Calcium 8.3 L (8.4-10.2) mg/dL Total Protein 4.8 L (6.3-8.2) g/dL Albumin 2.4 L (3.5-5.0) g/dL Crossmatch 09/02/16 09/02/16 09/02/16 Range/Units 11:40 11:40 12:25 RBC 2.46 L (3.80-5.40) m/uL Hgb 6.7 L* (11.4-16.0) gm/dL Hct 22.1 L (34.0-46.0) % MCHC 30.1 L (31.0-37.0) g/dL PT 104.4 H (9.0-12.0) sec INR 9.8 H* (<1.1) ABG pH (7.35-7.45) ABG pCO2 (35-45) mmHg ABG pO2 (83-108) mmHg ABG HCO3 (21-25) mmol/L ABG Total CO2 (19-24) mmol/L Sodium (137-145) mmol/L Chloride (98-107) mmol/L Carbon Dioxide (22-30) mmol/L BUN (7-17) mg/dL Creatinine (0.52-1.04) mg/dL Glucose (74-99) mg/dL POC Glucose (mg/dL) 204 H (75-99) mg/dL Calcium (8.4-10.2) mg/dL Total Protein (6.3-8.2) g/dL Albumin (3.5-5.0) g/dL Crossmatch Microbiology - Last 24 Hours (Table) 08/28/16 12:15 Gram Stain - Final Pleural Fluid Body Fluid Culture - Final Assessment and Plan Plan: #1 Non-ST segment elevation myocardial infarction. Evaluated by cardiology during this admission, no intervention recommended so far #2 Anemia, suspect possible GI bleed in a patient with recent EGD in May 2016, and last colonoscopy 2010. Gastroenterology following, will proceed with colonoscopy when general medical condition improves. HGB 6.7 today Will give her 1 unit of red blood cells and monitor hemoglobin closely #3 Sepsis, blood culture positive for Staphylococcus aureus. Currently maintained on IV Cefazolin #4 Febrile illness secondary to above and suspected urinary tract infection as well. #5 Acute exacerbation of diastolic congestive heart failure. #6 Hyperlipidemia. #7 Diabetes mellitus. #8 Hypertension. #9 History of coronary artery disease with previous coronary artery bypass grafting. #10 Left upper extremity pain secondary to recent left humeral fracture. #11 Valvular heart disease with severe aortic stenosis, moderate to severe mitral regurgitation, moderate to severe pulmonary hypertension. #12 Acute kidney injury secondary to hypotension and hypoprofusion improved cr 1.1 yesterday , will recheck labs in am # 13 Elevated INR not on any anticoagulation, INR is up to 9.8 today she will be given vitamin K [address] Song following, he was notified of finding Medication and labs were reviewed continue was current management prognosis is guarded due to age and severity of illness
--- NOTE | 2016-09-02 15:00 | PN ---
DATE OF SERVICE: 09/02/2016 Reason for followup is MSSA bacteremia with left humerus infection. INTERVAL HISTORY: The patient is afebrile. She is slightly more awake, alert, breathing comfortably. Denies any significant chest pain or cough or any significant pain to the left arm area. On examination, blood pressure 117/56 with a pulse of 68, temperature 97. She is 100% on 3 L nasal cannula. General description is an elderly female, up in the chair in no distress. RESPIRATORY SYSTEM: Unlabored breathing. Clear to auscultation anteriorly. HEART: S1, S2, regular rate and rhythm. ABDOMEN: Soft, no tenderness. LABS: Hemoglobin 6.7, white count 8.0 with a BUN of 40, creatinine is 1.17. DIAGNOSTIC IMPRESSION AND PLAN: Patient with methicillin-susceptible Staphylococcus aureus bacteremia, source of the left humerus osteomyelitis. The patient is currently covered with cephazolin. Continued care if she continued to finish dose of 6 to 8 weeks of therapy with close outpatient followup. Continue supportive care.
[2016-09-02 16:55] LABS: Glucose,Whole Blood 148 mg/dL (75-99)
[2016-09-02] MEDS ORDERED: PHYTONADIONE 10 MG in SODIUM CHLORIDE 0.9% 50 ML IVPB STA (18:47)
[2016-09-02 20:16] LABS: Basophils % (A) 0 %; CH 27.3; CHCM 30.1; Eosinophils # (A) 0.2 k/uL (0-0.7); Eosinophils % (A) 3 %; HCT 28.4 % (34.0-46.0); HDW 3.93; Hypochromasia Marked; Luc # (Auto) 0.14; Luc % (Auto) 2; Lymphocytes # (A) 1.3 k/uL (1.0-4.8); Lymphocytes % (A) 19 %; MCH 27.2 pg (25.0-35.0); MCHC 29.8 g/dL (31.0-37.0); MCV 91.1 fL (80.0-100.0); Monocytes # (A) 0.4 k/uL (0-1.0); Monocytes % (A) 6 %; Neutrophils % (A) 71 %; Poikilocytosis Slight; RBC 3.12 m/uL (3.80-5.40); RDW 15.5 % (11.5-15.5); WBC 7.1 k/uL (3.8-10.6); WBC (Perox) 7.57
[2016-09-02 20:28] LABS: INR 4.4 (<1.1); Prothrombin Time 43.5 sec (9.0-12.0)
[2016-09-02 20:41] LABS: HGB 8.5 gm/dL (11.4-16.0)
[2016-09-02] MEDS: ATORVASTATIN 40 MG TAB PO SCH (20:53)
[2016-09-02] MEDS: CHOLECALCIFEROL 1,000 UNIT TAB PO SCH (20:54)
[2016-09-02] MEDS: DONEPEZIL 10 MG TAB PO SCH (20:54)
[2016-09-02] MEDS: FENOFIBRATE 160 MG TAB PO SCH (20:54)
[2016-09-02] MEDS: MELATONIN 5 MG TABLET PO SCH (20:55)
[2016-09-02] MEDS: MULTIVITAMINS, THERA 1 EACH TAB PO SCH (20:55)
[2016-09-02] MEDS: SERTRALINE 100 MG TAB PO SCH (20:55)
[2016-09-02 21:17] LABS: Glucose,Whole Blood 134 mg/dL (75-99)
[2016-09-03] MEDS: HYDROcodone/APAP 10-325MG 1 EACH TAB PO PRN ×3 (02:11→16:53)
[2016-09-03 02:57] LABS: Basophils % (A) 0 %; CH 27.1; CHCM 30.3; Eosinophils # (A) 0.1 k/uL (0-0.7); Eosinophils % (A) 1 %; HCT 27.5 % (34.0-46.0); HDW 3.99; HGB 8.5 gm/dL (11.4-16.0); Hypochromasia Marked; Luc # (Auto) 0.11; Luc % (Auto) 1; Lymphocytes # (A) 0.9 k/uL (1.0-4.8); Lymphocytes % (A) 8 %; MCH 27.7 pg (25.0-35.0); MCHC 30.9 g/dL (31.0-37.0); MCV 89.9 fL (80.0-100.0); Mean Platelet Volume 7.3; Monocytes # (A) 0.9 k/uL (0-1.0); Monocytes % (A) 9 %; Neutrophils # (A) 8.6 k/uL (1.3-7.7); Neutrophils % (A) 81 %; Poikilocytosis Slight; RBC 3.06 m/uL (3.80-5.40); RDW 15.7 % (11.5-15.5); WBC 10.6 k/uL (3.8-10.6); WBC (Perox) 11.41
[2016-09-03 06:57] LABS: Basophils % (A) 0 %; CH 27.1; CHCM 30.3; Eosinophils # (A) 0.1 k/uL (0-0.7); Eosinophils % (A) 1 %; HCT 26.8 % (34.0-46.0); HDW 3.99; HGB 8.2 gm/dL (11.4-16.0); Hypochromasia Marked; Luc % (Auto) 1; Lymphocytes # (A) 0.9 k/uL (1.0-4.8); Lymphocytes % (A) 12 %; MCH 27.5 pg (25.0-35.0); MCHC 30.6 g/dL (31.0-37.0); Mean Platelet Volume 7.1; Monocytes # (A) 0.5 k/uL (0-1.0); Monocytes % (A) 7 %; Neutrophils # (A) 5.8 k/uL (1.3-7.7); Neutrophils % (A) 78 %; Poikilocytosis Slight; RBC 2.98 m/uL (3.80-5.40); RDW 15.8 % (11.5-15.5); WBC 7.5 k/uL (3.8-10.6); WBC (Perox) 7.92
[2016-09-03 07:16] LABS: Potassium 3.3 mmol/L (3.5-5.1); Total Protein 4.8 g/dL (6.3-8.2)
[2016-09-03 07:24] LABS: INR 1.5 (<1.1); Partial Thromboplastin Time 32.4 sec (22.0-30.0); Prothrombin Time 14.7 sec (9.0-12.0)
[2016-09-03 07:46] LABS: Calcium 8.3 mg/dL (8.4-10.2); Total Bilirubin 0.4 mg/dL (0.2-1.3)
[2016-09-03 07:49] LABS: Glucose,Whole Blood 129 mg/dL (75-99)
[2016-09-03] MEDS: INSULIN LISPRO (humaLOG) 300 UNIT/3 ML VIAL SQ SCH ×4 (08:29→21:41)
[2016-09-03] MEDS: ceFAZolin 2 GM in SODIUM CHLORIDE 0.9% 100 ML IVPB SCH ×2 (08:37→20:38)
[2016-09-03] MEDS: FUROSEMIDE 10 MG/ML 4 ML VIAL IV SCH ×2 (08:37→20:37)
[2016-09-03] MEDS ORDERED: LIDOCAINE 1% INJ 10MG/ML (20 ML MDV) ONE (09:02)
[2016-09-03] MEDS ORDERED: PROPOFOL 10 MG/ML 20 ML VIAL IV ONE (09:02)
[2016-09-03] MEDS ORDERED: IV FLUID CONTINUATION 700 ML IV ONE (09:04)
[2016-09-03] MEDS ORDERED: POTASSIUM CHLORIDE ER 20 MEQ TAB.ER PO STA (09:07)
--- NOTE | 2016-09-03 09:08 | P.PN ---
Subjective Your asked to see the patient again, as her INR has been quite elevated. She has been having some black stools with intermittent drops in hemoglobin, and endoscopic procedure is planned. Objective - Vital Signs Vital signs: Vital Signs Temp 96.8 F L 09/03/16 07:00 Pulse 65 09/03/16 07:00 Resp 16 09/03/16 07:00 BP 123/58 09/03/16 07:00 Pulse Ox 100 09/03/16 07:00 Intake & Output 09/02/16 09/03/16 09/03/16 18:59 06:59 18:59 Intake Total 310 Output Total 1000 1150 Balance -690 -1150 Intake: Blood Product 310 Rc As-1 Unit 310 [id number] Output: Urine 1000 1150 Other: Voiding Method Indwelling Catheter Indwelling Catheter # Bowel Movements 1 0 - Constitutional General appearance: Present: no acute distress - EENT Eyes: Present: PERRLA ENT: Present: hearing grossly normal, normal oropharynx - Respiratory Respiratory: bilateral: diminished - Cardiovascular Rhythm: regular Heart sounds: normal: S1, S2 - Gastrointestinal General gastrointestinal: Present: normal bowel sounds, soft - Integumentary Integumentary: Present: calor (Mild, bilateral lower extremities) - Neurologic Neurologic: Present: CNII-XII intact - Musculoskeletal Musculoskeletal: Present: left sided weakness (Left upper extremity due to osteomyelitis and fracture) - Labs CBC & Chem 7: 09/03/16 06:35 09/03/16 06:35 Labs: Abnormal Lab Results - Last 24 Hours (Table) 08/31/16 09/02/16 09/02/16 Range/Units 09:00 11:09 11:40 RBC 2.46 L (3.80-5.40) m/uL Hgb 6.7 L* (11.4-16.0) gm/dL Hct 22.1 L (34.0-46.0) % MCHC 30.1 L (31.0-37.0) g/dL RDW (11.5-15.5) % Neutrophils # (1.3-7.7) k/uL Lymphocytes # (1.0-4.8) k/uL PT (9.0-12.0) sec INR (<1.1) APTT (22.0-30.0) sec ABG pH 7.50 H (7.35-7.45) ABG pCO2 54 H (35-45) mmHg ABG pO2 68 L (83-108) mmHg ABG HCO3 42 H* (21-25) mmol/L ABG Total CO2 43 H (19-24) mmol/L Sodium (137-145) mmol/L Potassium (3.5-5.1) mmol/L Chloride (98-107) mmol/L Carbon Dioxide (22-30) mmol/L BUN (7-17) mg/dL Creatinine (0.52-1.04) mg/dL Glucose (74-99) mg/dL POC Glucose (mg/dL) (75-99) mg/dL Calcium (8.4-10.2) mg/dL Total Protein (6.3-8.2) g/dL Albumin (3.5-5.0) g/dL Crossmatch See Detail 09/02/16 09/02/16 09/02/16 Range/Units 11:40 12:25 16:53 RBC (3.80-5.40) m/uL Hgb (11.4-16.0) gm/dL Hct (34.0-46.0) % MCHC (31.0-37.0) g/dL RDW (11.5-15.5) % Neutrophils # (1.3-7.7) k/uL Lymphocytes # (1.0-4.8) k/uL PT 104.4 H (9.0-12.0) sec INR 9.8 H* (<1.1) APTT (22.0-30.0) sec ABG pH (7.35-7.45) ABG pCO2 (35-45) mmHg ABG pO2 (83-108) mmHg ABG HCO3 (21-25) mmol/L ABG Total CO2 (19-24) mmol/L Sodium (137-145) mmol/L Potassium (3.5-5.1) mmol/L Chloride (98-107) mmol/L Carbon Dioxide (22-30) mmol/L BUN (7-17) mg/dL Creatinine (0.52-1.04) mg/dL Glucose (74-99) mg/dL POC Glucose (mg/dL) 204 H 148 H (75-99) mg/dL Calcium (8.4-10.2) mg/dL Total Protein (6.3-8.2) g/dL Albumin (3.5-5.0) g/dL Crossmatch 09/02/16 09/02/16 09/02/16 Range/Units 20:07 20:07 21:16 RBC 3.12 L (3.80-5.40) m/uL Hgb 8.5 L D (11.4-16.0) gm/dL Hct 28.4 L (34.0-46.0) % MCHC 29.8 L (31.0-37.0) g/dL RDW (11.5-15.5) % Neutrophils # (1.3-7.7) k/uL Lymphocytes # (1.0-4.8) k/uL PT 43.5 H (9.0-12.0) sec INR (<1.1) APTT (22.0-30.0) sec ABG pH (7.35-7.45) ABG pCO2 (35-45) mmHg ABG pO2 (83-108) mmHg ABG HCO3 (21-25) mmol/L ABG Total CO2 (19-24) mmol/L Sodium (137-145) mmol/L Potassium (3.5-5.1) mmol/L Chloride (98-107) mmol/L Carbon Dioxide (22-30) mmol/L BUN (7-17) mg/dL Creatinine (0.52-1.04) mg/dL Glucose (74-99) mg/dL POC Glucose (mg/dL) 134 H (75-99) mg/dL Calcium (8.4-10.2) mg/dL Total Protein (6.3-8.2) g/dL Albumin (3.5-5.0) g/dL Crossmatch 09/03/16 09/03/16 09/03/16 Range/Units 02:04 06:35 06:35 RBC 3.06 L 2.98 L (3.80-5.40) m/uL Hgb 8.5 L 8.2 L (11.4-16.0) gm/dL Hct 27.5 L 26.8 L (34.0-46.0) % MCHC 30.9 L 30.6 L (31.0-37.0) g/dL RDW 15.7 H 15.8 H (11.5-15.5) % Neutrophils # 8.6 H (1.3-7.7) k/uL Lymphocytes # 0.9 L 0.9 L (1.0-4.8) k/uL PT (9.0-12.0) sec INR (<1.1) APTT (22.0-30.0) sec ABG pH (7.35-7.45) ABG pCO2 (35-45) mmHg ABG pO2 (83-108) mmHg ABG HCO3 (21-25) mmol/L ABG Total CO2 (19-24) mmol/L Sodium 135 L (137-145) mmol/L Potassium 3.3 L (3.5-5.1) mmol/L Chloride 86 L (98-107) mmol/L Carbon Dioxide 41 H* (22-30) mmol/L BUN 43 H (7-17) mg/dL Creatinine 1.16 H (0.52-1.04) mg/dL Glucose 122 H (74-99) mg/dL POC Glucose (mg/dL) (75-99) mg/dL Calcium 8.3 L (8.4-10.2) mg/dL Total Protein 4.8 L (6.3-8.2) g/dL Albumin 2.4 L (3.5-5.0) g/dL Crossmatch 09/03/16 09/03/16 Range/Units 06:35 06:44 RBC (3.80-5.40) m/uL Hgb (11.4-16.0) gm/dL Hct (34.0-46.0) % MCHC (31.0-37.0) g/dL RDW (11.5-15.5) % Neutrophils # (1.3-7.7) k/uL Lymphocytes # (1.0-4.8) k/uL PT 14.7 H (9.0-12.0) sec INR (<1.1) APTT 32.4 H (22.0-30.0) sec ABG pH (7.35-7.45) ABG pCO2 (35-45) mmHg ABG pO2 (83-108) mmHg ABG HCO3 (21-25) mmol/L ABG Total CO2 (19-24) mmol/L Sodium (137-145) mmol/L Potassium (3.5-5.1) mmol/L Chloride (98-107) mmol/L Carbon Dioxide (22-30) mmol/L BUN (7-17) mg/dL Creatinine (0.52-1.04) mg/dL Glucose (74-99) mg/dL POC Glucose (mg/dL) 129 H (75-99) mg/dL Calcium (8.4-10.2) mg/dL Total Protein (6.3-8.2) g/dL Albumin (3.5-5.0) g/dL Crossmatch Assessment and Plan (1) Coagulopathy Narrative/Plan: The clinically this is most likely due to vitamin K deficiency. The patient has had a prolonged hospitalization, with decreased oral intake, as well as ongoing antibiotic therapy. This should improve with vitamin K supplementation. Oral recommendation has been prescribed, but may not be effective, given possible GI blood loss which could increased transit time, as well as ongoing antibiotic treatment. Therefore IV vitamin K will be ordered and coags checked tomorrow. Status: Acute (2) Acute blood loss anemia Narrative/Plan: Her anemia is only partially due to blood loss. She has baseline anemia because of inflammation and antibiotic use. Baseline hemoglobin appears to be in the 7-8 range, with drops into the 6 range due to blood loss. At this time the degree of blood loss is on appear to be severe enough to warrant plasma infusion. This should improve with correction of adenopathy. Once coagulopathy is corrected, she can proceed with the GI workup. In the meantime , continue current plan of monitoring and supplementation with transfusion as needed to keep hemoglobin greater than 7 Status: Acute
[2016-09-03] MEDS: IPRATROPIUM-ALBUTEROL 3 ML NEB INHALATION SCH ×4 (09:42→19:38)
--- NOTE | 2016-09-03 09:42 | P.PCN ---
Date of Procedure: 09/03/16 Preoperative Diagnosis: Postoperative Diagnosis: Procedure(s) Performed: BRIEF HISTORY: Patient is a 80-year-old, pleasant, white female, admitted hospital 2 weeks ago with symptomatic anemia and left humerus fracture. During the hospitalization she continues to have intermittent black tarry stools with drop in hemoglobin from 8-6 g/dL requiring blood transfusions. Yesterday she had a large episode of melanotic stool and once again dropped her hemoglobin to 6.9 and was noted to have coagulative debris secondary to vitamin K deficiency. She was given White M.D. and INR normalized this morning. She is scheduled for an upper endoscopy to evaluate for upper GI source of bleeding. PROCEDURE PERFORMED: Esophagogastroduodenoscopy and cautery. PREOPERATIVE DIAGNOSIS: GI bleed and black tarry stools. IV sedation per anesthesia. PROCEDURE: After informed consent was obtained, the patient was brought into the endoscopy unit. IV sedation was administered by Anesthesia under continuous monitoring. Initially the Olympus GIF-140 video endoscope was inserted into the mouth. Esophagus intubated without any difficulty. It was gradually advanced into the stomach and duodenum and carefully examined. There was some fresh blood noted in the second part of the duodenum and upon careful examination there was a 1 cm using angiectasia identified. This was cauterized using the Gold probe with good hemostasis. The rest of the bulb and the second part of the duodenum appeared normal. The scope at this time was withdrawn to the stomach, adequately insufflated with air, and upon careful examination, mucosa of the antrum, body, cardia and the fundus appeared normal. The scope was then withdrawn into the esophagus. The GE junction was located at 39 cm from the incisors. There was circumferential erythema the GE junction consistent with LA grade B reflux esophagitis and the patient tolerated the procedure well. IMPRESSION: 1. 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 2. LA grade B reflux esophagitis. RECOMMENDATIONS: The findings of this examination were discussed with the patient . She'll be started on a full liquid diet and will continue to monitor her hemoglobin and hematocrit closely.. Implants: Indications for Procedure: Operative Findings: Description of Procedure:
--- NOTE | 2016-09-03 10:21 | P.PN ---
Subjective This is a 80-year-old female, patient of [facility]. She has a known past medical history of myocardial infarction and three-vessel coronary artery bypass graft, coronary artery disease, hyperlipidemia, hypertension, diabetes, chronic kidney disease and dementia. Also history of anemia with recent EGD and May 2016 revealing gastritis colonoscopy was several years ago. She presents to the hospital with complaints of chest pain, abdominal pain , black stools with episodes of diarrhea. She's found have evidence of a non- ST elevated MO. Not able to be on aspirin or IV heparin at this time due to her significant anemia. Patient is found to have a UTI as well as positive blood cultures growing presumptive staph aureus. She currently on vancomycin and Rocephin. She still complaining of some abdominal pain. Also having some shortness of breath. Hemoglobin is 7.1 today she'll get receive 1 unit of blood. Creatinine has jumped up to 2.24. Nephrology will be consulted Lasix and lisinopril are on hold. 08/17/2016 patient currently in the ICU. She had a reaction to blood transfusion on Wednesday. Hemoglobin is 7.2. She is having stools. Loose but not dark and no blood present. She is still complaining of some belly pain. Left arm is in sling. She has been off of the dopamine since yesterday. She is followed by multiple consulting physicians. Continue to monitor closely. The planning on transferring her to the sixth floor this afternoon. 08/20/2016 patient still complaining of some chest pain and abdominal pain. Yesterday she was sent to the telemetry floor due to chest pain. Troponin slightly elevated 0.318 but improved since admission. Cardiology has been reconsulted. Patient reports having bowel movements, denies any nausea vomiting. Denies any difficulty with urinating. 08/24/2016 patient reports being more short of breath today. Chest x-ray did show evidence of fluid congestion and possible CHF. Nephrology ordered 1 dose of IV Lasix. Patient reports having black stools. Stool for occult blood was positive. GI following. Hemoglobin 8.4. Denies any chest pain. Denies any nausea or vomiting. 08/27/2016 patient still complaining of some epigastric abdominal pain with chest pains. They're the same pains that she is been dealing with. She was also having some difficulty swallowing. She was evaluated by speech therapy and they have adjusted her diet to thickened liquids. She reports having formed regular stools. Denies any nausea or vomiting. Decrease in appetite. 08/28/2016 patient lying in bed still complaining of epigastric abdominal pain and some chest pain. She'll be trying to work with physical therapy this morning. She was found to have evidence of bilateral pleural effusion's noted on chest ultrasound. And she will be undergoing a right-sided thoracentesis this afternoon. Patient is evaluated by speech therapy and she is scheduled for modified barium swallow study later today. Patient denies any vomiting. She did have a brown stool today. Denies any difficulty urinating. Case discussed with granddaughter at bedside 09/03/2016 patient underwent EGD today. Still reporting abdominal discomfort and chest pain at times. Denies any nausea or vomiting. Had large black stool yesterday. She did receive a unit of blood as well as vitamin K for elevated INR. INR today 1.5. Hemoglobin 8.2 Objective - Vital Signs Vital signs: Vital Signs Temp 96.8 F L 09/03/16 07:00 Pulse 65 09/03/16 07:00 Resp 16 09/03/16 07:00 BP 123/58 09/03/16 07:00 Pulse Ox 100 09/03/16 07:00 Intake & Output 09/02/16 09/03/16 09/03/16 18:59 06:59 18:59 Intake Total 310 100 Output Total 1000 1150 Balance -690 -1150 100 Intake: IV 100 Blood Product 310 Rc As-1 Unit 310 [id number] Output: Urine 1000 1150 Other: Voiding Method Indwelling Catheter Indwelling Catheter # Bowel Movements 1 0 - Exam Head normocephalic Neck supple Lungs diminished bilaterally. Crackles at bases Heart regular rate and rhythm S1-S2, no rub or gallop positive murmur. Tenderness with palpation of chest wall Abdomen is soft nondistended positive bowel sounds epigastric tenderness Extremities no edema Neuro awake and alert eating breakfast - Labs CBC & Chem 7: 09/03/16 06:35 09/03/16 06:35 Labs: Abnormal Lab Results - Last 24 Hours (Table) 08/31/16 09/02/16 09/02/16 Range/Units 09:00 11:09 11:40 RBC 2.46 L (3.80-5.40) m/uL Hgb 6.7 L* (11.4-16.0) gm/dL Hct 22.1 L (34.0-46.0) % MCHC 30.1 L (31.0-37.0) g/dL RDW (11.5-15.5) % Neutrophils # (1.3-7.7) k/uL Lymphocytes # (1.0-4.8) k/uL PT (9.0-12.0) sec INR (<1.1) APTT (22.0-30.0) sec ABG pH 7.50 H (7.35-7.45) ABG pCO2 54 H (35-45) mmHg ABG pO2 68 L (83-108) mmHg ABG HCO3 42 H* (21-25) mmol/L ABG Total CO2 43 H (19-24) mmol/L Sodium (137-145) mmol/L Potassium (3.5-5.1) mmol/L Chloride (98-107) mmol/L Carbon Dioxide (22-30) mmol/L BUN (7-17) mg/dL Creatinine (0.52-1.04) mg/dL Glucose (74-99) mg/dL POC Glucose (mg/dL) (75-99) mg/dL Calcium (8.4-10.2) mg/dL Total Protein (6.3-8.2) g/dL Albumin (3.5-5.0) g/dL Crossmatch See Detail 09/02/16 09/02/16 09/02/16 Range/Units 11:40 12:25 16:53 RBC (3.80-5.40) m/uL Hgb (11.4-16.0) gm/dL Hct (34.0-46.0) % MCHC (31.0-37.0) g/dL RDW (11.5-15.5) % Neutrophils # (1.3-7.7) k/uL Lymphocytes # (1.0-4.8) k/uL PT 104.4 H (9.0-12.0) sec INR 9.8 H* (<1.1) APTT (22.0-30.0) sec ABG pH (7.35-7.45) ABG pCO2 (35-45) mmHg ABG pO2 (83-108) mmHg ABG HCO3 (21-25) mmol/L ABG Total CO2 (19-24) mmol/L Sodium (137-145) mmol/L Potassium (3.5-5.1) mmol/L Chloride (98-107) mmol/L Carbon Dioxide (22-30) mmol/L BUN (7-17) mg/dL Creatinine (0.52-1.04) mg/dL Glucose (74-99) mg/dL POC Glucose (mg/dL) 204 H 148 H (75-99) mg/dL Calcium (8.4-10.2) mg/dL Total Protein (6.3-8.2) g/dL Albumin (3.5-5.0) g/dL Crossmatch 09/02/16 09/02/16 09/02/16 Range/Units 20:07 20:07 21:16 RBC 3.12 L (3.80-5.40) m/uL Hgb 8.5 L D (11.4-16.0) gm/dL Hct 28.4 L (34.0-46.0) % MCHC 29.8 L (31.0-37.0) g/dL RDW (11.5-15.5) % Neutrophils # (1.3-7.7) k/uL Lymphocytes # (1.0-4.8) k/uL PT 43.5 H (9.0-12.0) sec INR (<1.1) APTT (22.0-30.0) sec ABG pH (7.35-7.45) ABG pCO2 (35-45) mmHg ABG pO2 (83-108) mmHg ABG HCO3 (21-25) mmol/L ABG Total CO2 (19-24) mmol/L Sodium (137-145) mmol/L Potassium (3.5-5.1) mmol/L Chloride (98-107) mmol/L Carbon Dioxide (22-30) mmol/L BUN (7-17) mg/dL Creatinine (0.52-1.04) mg/dL Glucose (74-99) mg/dL POC Glucose (mg/dL) 134 H (75-99) mg/dL Calcium (8.4-10.2) mg/dL Total Protein (6.3-8.2) g/dL Albumin (3.5-5.0) g/dL Crossmatch 09/03/16 09/03/16 09/03/16 Range/Units 02:04 06:35 06:35 RBC 3.06 L 2.98 L (3.80-5.40) m/uL Hgb 8.5 L 8.2 L (11.4-16.0) gm/dL Hct 27.5 L 26.8 L (34.0-46.0) % MCHC 30.9 L 30.6 L (31.0-37.0) g/dL RDW 15.7 H 15.8 H (11.5-15.5) % Neutrophils # 8.6 H (1.3-7.7) k/uL Lymphocytes # 0.9 L 0.9 L (1.0-4.8) k/uL PT (9.0-12.0) sec INR (<1.1) APTT (22.0-30.0) sec ABG pH (7.35-7.45) ABG pCO2 (35-45) mmHg ABG pO2 (83-108) mmHg ABG HCO3 (21-25) mmol/L ABG Total CO2 (19-24) mmol/L Sodium 135 L (137-145) mmol/L Potassium 3.3 L (3.5-5.1) mmol/L Chloride 86 L (98-107) mmol/L Carbon Dioxide 41 H* (22-30) mmol/L BUN 43 H (7-17) mg/dL Creatinine 1.16 H (0.52-1.04) mg/dL Glucose 122 H (74-99) mg/dL POC Glucose (mg/dL) (75-99) mg/dL Calcium 8.3 L (8.4-10.2) mg/dL Total Protein 4.8 L (6.3-8.2) g/dL Albumin 2.4 L (3.5-5.0) g/dL Crossmatch 09/03/16 09/03/16 Range/Units 06:35 06:44 RBC (3.80-5.40) m/uL Hgb (11.4-16.0) gm/dL Hct (34.0-46.0) % MCHC (31.0-37.0) g/dL RDW (11.5-15.5) % Neutrophils # (1.3-7.7) k/uL Lymphocytes # (1.0-4.8) k/uL PT 14.7 H (9.0-12.0) sec INR (<1.1) APTT 32.4 H (22.0-30.0) sec ABG pH (7.35-7.45) ABG pCO2 (35-45) mmHg ABG pO2 (83-108) mmHg ABG HCO3 (21-25) mmol/L ABG Total CO2 (19-24) mmol/L Sodium (137-145) mmol/L Potassium (3.5-5.1) mmol/L Chloride (98-107) mmol/L Carbon Dioxide (22-30) mmol/L BUN (7-17) mg/dL Creatinine (0.52-1.04) mg/dL Glucose (74-99) mg/dL POC Glucose (mg/dL) 129 H (75-99) mg/dL Calcium (8.4-10.2) mg/dL Total Protein (6.3-8.2) g/dL Albumin (3.5-5.0) g/dL Crossmatch Assessment and Plan Plan: #1 acute Non-ST segment elevation myocardial infarction. Evaluated by cardiology during this admission, no intervention recommended so far #2 acute blood loss anemia secondary to GI bleed. 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 She underwent cauterization of that area. Also there is a leg grade B reflux esophagitis. Continue Protonix. Continue monitoring CBC. She did receive 1 unit of blood yesterday. 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 Infectious diseases recommending cefazolin 2 g for 6 to 8 weeks weeks #4 UTI. Urine culture no growth #5 Acute exacerbation of diastolic congestive heart failure. Continue IV Lasix. Pulmonary following ordered chest ultrasound to review of possible thoracentesis needed #6 Hyperlipidemia. #7 Diabetes mellitus. #8 essential Hypertension. #9 History of coronary artery disease with previous coronary artery bypass grafting. #10 Left upper extremity pain secondary to recent left humeral fracture. #11 Valvular heart disease with severe aortic stenosis, moderate to severe mitral regurgitation, moderate to severe pulmonary hypertension. #12 Acute kidney injury secondary to hypotension and hypoprofusion. Due to sepsis and anemia. Nephrology following. # 13 coagulopathy secondary to vitamin K deficiency due to poor oral intake. Patient evaluated by hematology. She did receive vitamin K. INR is 1.5. Continue to monitor PT/INRs #14 hypokalemia patient receiving potassium supplement #15 right sided pleural effusion status post thoracentesis #16 elevated CO2: Patient receiving Diamox. CO2 down to 41 GI prophylaxis IV Protonix. Continue SCDs I performed an examination of the patient and discussed their management with the physician Billing Auditor. I have reviewed the Physician Billing Auditor's notes and agree with the documented findings and plan of care
[2016-09-03] MEDS: DOCUSATE 100 MG CAP PO SCH (10:27)
[2016-09-03] MEDS: ISOSORBIDE MONONITRATE ER 30 MG TAB.ER.24H PO SCH (10:27)
[2016-09-03] MEDS: METOPROLOL TARTRATE 25 MG TAB PO SCH ×2 (10:27→20:37)
[2016-09-03] MEDS: EZETIMIBE 10 MG TAB PO SCH (10:28)
[2016-09-03] MEDS: PANTOPRAZOLE 40 MG TABLET PO SCH (10:28)
[2016-09-03] MEDS: POLYETHYLENE GLYCOL 3350 17 GM POWD.PACK PO SCH ×2 (10:28→11:53)
[2016-09-03 11:59] LABS: Glucose,Whole Blood 144 mg/dL (75-99)
--- NOTE | 2016-09-03 14:46 | PN ---
This is an 80-year-old female that we been seeing. She is very frail. The patient today complains of abdominal discomfort. Her breathing is good, though. She states that she feels not having any shortness of breath. No chest congestion. No coughing. Currently her biggest issue is the belly pain. She does have a small left pleural effusion. She is status post right-sided thoracentesis. Left-sided was contemplated but because of her humeral fracture, it was not done. She has required 4 units of PRBCs since admission. She looks again very frail. The patient has a history of non-ST segment elevation myocardial infarction, anemia, sepsis secondary to MRSA, diastolic CHF, hyperlipidemia, diabetes, hypertension, CAD with previous bypass grafting, humeral fracture secondary with left upper extremity pain, valvular heart disease, pulmonary hypertension, mitral regurgitation, acute kidney injury, bilateral effusions with a thoracentesis on the right side. Overall, general state it is not particularly good and she again looks relatively frail and it is somewhat pale-looking. No acute distress, though. Current vital signs are stable. She is afebrile. Temperature 96.8, heart rate is 65, respirations 16, blood pressure 123/58, mean 79, 2 L saturation at 100%. No respiratory distress. No audible wheezing. Not using accessory muscles. No nasal flaring or anything like that. HEENT examination is grossly unremarkable. Again mucous membranes are moist. No oral lesions. Neck is supple. Cardiovascular examination reveals a regular rhythm and rate. Heart rate 65. No distinct murmur is noted. S3, S4, is not noted. Lungs are relatively clear. No wheezes or rhonchi. She does not take real deep breaths. Abdomen is relatively soft. She does not really wince when I palpate her abdomen. Does not appear to have a surgical belly. Bowel sounds are noted. Extremities are intact. There is no edema. Skin is without rash. Left arm is in a sling as it has been for the last couple of days. Labs are reviewed. White count 7.5, hemoglobin stable at 8.2, hematocrit 26.8, platelet count 302,000. PT 14.7, INR 1.5, PTT 32.4, sodium 135, potassium 3.3, chloride is 86, CO2 of 41, BUN and creatinine were 43 and 1.16. The rest of the labs look okay. Microbiology is positive for staph aureus and blood also staph aureus and the aspirate assume from the left shoulder. Urine is negative. I do not see a sputum sample. Medications are reviewed. She is on appropriate medications. ASSESSMENT: 1. Non- ST segment-elevation myocardial infarction. 2. Anemia, status post 4 units of PRBCs. 3. Sepsis secondary to urinary tract infection. 4. Diastolic congestive heart failure. 5. Hyperlipidemia. 6. Diabetes. 7. Methicillin-resistant Staphylococcus aureus bacteremia. 8. Hyperlipidemia. 9. Diabetes. 10. Hypertension. 11. Coronary artery disease/coronary artery bypass grafting. 12. Left humeral fracture. 13. Valvular heart disease. 14. Pulmonary hypertension. 15. Mitral regurgitation. 16. Acute kidney injury. 17. Status post right-sided thoracentesis for moderate to large right-sided pleural effusion. 18. General medical debility. PLAN: The patient's overall prognosis not particularly good. Given her age and her multiple medical problems, I think she is at high risk for prolonged hospitalization and/or complication of hospitalization. Will continue to follow. Additional recommendations and suggestions are forthcoming. Again prognosis is very guarded.
[2016-09-03 16:51] LABS: Glucose,Whole Blood 132 mg/dL (75-99)
[2016-09-03 20:29] LABS: Glucose,Whole Blood 124 mg/dL (75-99)
[2016-09-03] MEDS: MULTIVITAMINS, THERA 1 EACH TAB PO SCH (20:37)
[2016-09-03] MEDS: SERTRALINE 100 MG TAB PO SCH (20:38)
[2016-09-03] MEDS: DONEPEZIL 10 MG TAB PO SCH (20:38)
[2016-09-03] MEDS: ATORVASTATIN 40 MG TAB PO SCH (20:38)
[2016-09-03] MEDS: FENOFIBRATE 160 MG TAB PO SCH (20:38)
[2016-09-03] MEDS: MELATONIN 5 MG TABLET PO SCH (20:38)
[2016-09-03] MEDS: CHOLECALCIFEROL 1,000 UNIT TAB PO SCH (21:41)
[2016-09-04 07:11] LABS: INR 1.2 (<1.1); Prothrombin Time 12.3 sec (9.0-12.0)
[2016-09-04 07:18] LABS: Glucose,Whole Blood 125 mg/dL (75-99)
[2016-09-04 07:36] LABS: Basophils % (A) 0 %; CH 27.2; CHCM 30.6; Calcium 8.2 mg/dL (8.4-10.2); Eosinophils # (A) 0.2 k/uL (0-0.7); Eosinophils % (A) 4 %; HCT 24.7 % (34.0-46.0); HDW 3.97; HGB 7.6 gm/dL (11.4-16.0); Hypochromasia Marked; Luc # (Auto) 0.12; Luc % (Auto) 2; Lymphocytes # (A) 0.8 k/uL (1.0-4.8); Lymphocytes % (A) 15 %; MCH 27.5 pg (25.0-35.0); MCHC 30.7 g/dL (31.0-37.0); MCV 89.5 fL (80.0-100.0); Mean Platelet Volume 7.2; Monocytes # (A) 0.6 k/uL (0-1.0); Monocytes % (A) 10 %; Neutrophils # (A) 3.9 k/uL (1.3-7.7); Neutrophils % (A) 70 %; Poikilocytosis Slight; Potassium 3.1 mmol/L (3.5-5.1); RBC 2.76 m/uL (3.80-5.40); RDW 15.5 % (11.5-15.5); Total Bilirubin 0.3 mg/dL (0.2-1.3); Total Protein 4.8 g/dL (6.3-8.2); WBC 5.6 k/uL (3.8-10.6); WBC (Perox) 5.88
[2016-09-04] MEDS: IPRATROPIUM-ALBUTEROL 3 ML NEB INHALATION SCH ×4 (07:49→20:10)
[2016-09-04] MEDS: INSULIN LISPRO (humaLOG) 300 UNIT/3 ML VIAL SQ SCH ×4 (08:05→23:16)
[2016-09-04] MEDS: FUROSEMIDE 10 MG/ML 4 ML VIAL IV SCH ×2 (08:09→22:41)
[2016-09-04] MEDS: DOCUSATE 100 MG CAP PO SCH (08:10)
[2016-09-04] MEDS: METOPROLOL TARTRATE 25 MG TAB PO SCH ×2 (08:10→22:42)
[2016-09-04] MEDS: ceFAZolin 2 GM in SODIUM CHLORIDE 0.9% 100 ML IVPB SCH ×2 (08:10→22:44)
[2016-09-04] MEDS: PANTOPRAZOLE 40 MG TABLET PO SCH (08:10)
[2016-09-04] MEDS: ISOSORBIDE MONONITRATE ER 30 MG TAB.ER.24H PO SCH (08:10)
[2016-09-04] MEDS: EZETIMIBE 10 MG TAB PO SCH (08:10)
[2016-09-04] MEDS: POLYETHYLENE GLYCOL 3350 17 GM POWD.PACK PO SCH (08:13)
[2016-09-04] MEDS: HYDROcodone/APAP 10-325MG 1 EACH TAB PO PRN ×3 (08:15→22:37)
--- NOTE | 2016-09-04 09:06 | PN ---
DATE OF SERVICE: 09/03/2016 Reason for followup MSSA bacteremia secondary to the left humerus osteomyelitis. INTERVAL HISTORY: The patient is afebrile. She is still complaining of abdominal discomfort, some nausea, but no vomiting. Denies any chest pain or shortness of breath, occasional cough and also pain the left arm area. On examination, blood pressure 104/43, pulse of 86, temperature 97.1. She is 100% on 3 L nasal cannula. General description is an elderly female, up in the chair in no distress. RESPIRATORY SYSTEM: Unlabored breathing. Clear to auscultation anteriorly. HEART: S1, S2, regular rate and rhythm. ABDOMEN: Soft, slightly distended. No guarding or rigidity. LABS: Hemoglobin 8.2, white count 7.5. BUN of 43 with a creatinine of 1.16. DIAGNOSTIC IMPRESSION AND PLAN: Patient with methicillin-sensitive Staphylococcus aureus bacteremia significant to the left humerus osteomyelitis. Patient currently on cefazolin which she has been tolerating. Already received more than 2 weeks now. She will continue 4 to 6 weeks depending on the clinical response. Once stable from the other consultants, she should be able to go home from ID standpoint with outpatient followup.
[2016-09-04] MEDS ORDERED: POTASSIUM CHLORIDE ER 20 MEQ TAB.ER PO STA (09:29)
--- NOTE | 2016-09-04 10:14 | P.PN ---
Subjective Principal diagnosis: Anemia sepsis bacteremia Status post EGD yesterday for evaluation of melena with findings of 170 m bleeding angiectasia in the second portion of the duodenum status post cautery. No bleeding through the night. Denies abdominal pain. Hemoglobin 7.6. INR 1.2. Objective - Vital Signs Vital signs: Vital Signs Temp 97.6 F 09/04/16 07:00 Pulse 66 09/04/16 07:00 Resp 20 09/04/16 07:00 BP 121/52 09/04/16 07:00 Pulse Ox 97 09/04/16 07:00 Intake & Output 09/03/16 09/04/16 09/04/16 18:59 06:59 18:59 Intake Total 190 Output Total 600 850 Balance -410 -850 Weight 79 kg Intake: IV 100 Oral 90 Output: Urine 600 850 Other: Voiding Method Indwelling Catheter Indwelling Catheter # Voids 1 # Bowel Movements 1 - Exam General appearance: The patient is alert, no acute distress anxious. HET: Head is normocephalic and atraumatic. Pupils are equal and reactive. Oropharynx is clear without lesions. Neck: Supple without lymphadenopathy. Trachea midline. Heart: S1 S2. Regular rate and rhythm. Lungs: Mr. bases bilaterally. Abdomen: Soft, mildly bloated with diffuse mild tenderness across mid abdomen with bowel sounds. No peritoneal signs. No palpable organomegaly or masses. Extremities: Left arm sling. PICC line without erythema or drainage. Neurological: No focal deficits. Strength and sensation are grossly intact. - Labs CBC & Chem 7: 09/04/16 06:55 09/04/16 06:55 Labs: Abnormal Lab Results - Last 24 Hours (Table) 09/03/16 09/03/16 09/03/16 Range/Units 11:52 16:43 20:26 RBC (3.80-5.40) m/uL Hgb (11.4-16.0) gm/dL Hct (34.0-46.0) % MCHC (31.0-37.0) g/dL Lymphocytes # (1.0-4.8) k/uL PT (9.0-12.0) sec Potassium (3.5-5.1) mmol/L Chloride (98-107) mmol/L Carbon Dioxide (22-30) mmol/L BUN (7-17) mg/dL Creatinine (0.52-1.04) mg/dL Glucose (74-99) mg/dL POC Glucose (mg/dL) 144 H 132 H 124 H (75-99) mg/dL Calcium (8.4-10.2) mg/dL Total Protein (6.3-8.2) g/dL Albumin (3.5-5.0) g/dL 09/04/16 09/04/16 09/04/16 Range/Units 06:55 06:55 06:55 RBC 2.76 L (3.80-5.40) m/uL Hgb 7.6 L (11.4-16.0) gm/dL Hct 24.7 L (34.0-46.0) % MCHC 30.7 L (31.0-37.0) g/dL Lymphocytes # 0.8 L (1.0-4.8) k/uL PT 12.3 H (9.0-12.0) sec Potassium 3.1 L (3.5-5.1) mmol/L Chloride 88 L (98-107) mmol/L Carbon Dioxide 43 H* (22-30) mmol/L BUN 41 H (7-17) mg/dL Creatinine 1.16 H (0.52-1.04) mg/dL Glucose 115 H (74-99) mg/dL POC Glucose (mg/dL) (75-99) mg/dL Calcium 8.2 L (8.4-10.2) mg/dL Total Protein 4.8 L (6.3-8.2) g/dL Albumin 2.4 L (3.5-5.0) g/dL 09/04/16 Range/Units 07:03 RBC (3.80-5.40) m/uL Hgb (11.4-16.0) gm/dL Hct (34.0-46.0) % MCHC (31.0-37.0) g/dL Lymphocytes # (1.0-4.8) k/uL PT (9.0-12.0) sec Potassium (3.5-5.1) mmol/L Chloride (98-107) mmol/L Carbon Dioxide (22-30) mmol/L BUN (7-17) mg/dL Creatinine (0.52-1.04) mg/dL Glucose (74-99) mg/dL POC Glucose (mg/dL) 125 H (75-99) mg/dL Calcium (8.4-10.2) mg/dL Total Protein (6.3-8.2) g/dL Albumin (3.5-5.0) g/dL Assessment and Plan Plan: 1. Normocytic hypochromic iron deficiency anemia component of acute blood loss secondary to acute active GI bleed with melena with drop in hemoglobin. 2. History of recent GI bleed anemia status post EGD May 2016 with findings of mild diffuse gastritis. Colonoscopy 2010 polypectomy. Source of melanotic stool secondary to bleeding angiectasia in the second portion the duodenum status post EGD exacerbated by coagulopathy which appears to be nutritional in source. 3. Bacteremia with Staphylococcus aureus blood cultures. Status post CLARIBEL. Left humerus osteomyelitis. 4. Status post fall 3 months ago FNA left humerus bone no evidence of carcinoma. 5. Non-ST elevated DC. 6. Congestive heart failure. Plan: 1. Diet as tolerated. Continue Protonix on discharge. 2. Daily PT/INR with close observation to keep less than 1.5 to prevent recurrent GI bleeding. 3. CBC monitoring. 4. Colonoscopy not planned at this time can be pursued as an outpatient when medically optimized. Assessment and plan a care discussed with Dr. Santiago.
[2016-09-04] MEDS ORDERED: FUROSEMIDE 10 MG/ML 2 ML VIAL IV ONE (11:01)
[2016-09-04 12:14] LABS: Glucose,Whole Blood 125 mg/dL (75-99)
--- NOTE | 2016-09-04 12:46 | P.PN ---
Subjective Principal diagnosis: Non ST elevation myocardial infarction, anemia 80-year-old female patient who initially presented on 08/13/2016 because of increased shortness of breath. The patient was ruled in for an acute non-ST segment elevation myocardial infarction. The patient is known to have coronary artery disease with previous bypass surgery. Other comorbid conditions include hypertension diabetes mellitus and hyperlipidemia and congestion heart failure. During this current hospitalization, the patient was also found to be septic with MRSA bacteremia, acute kidney injury secondary to acute ischemic trigger necrosis, sepsis, hypotension, pressor dependence, an acute transfusion reaction secondary to her packed RBC transfusion for which the patient was given for a low hemoglobin. The patient was also suspected to have a fracture of the left humerus. A CAT scan was done yesterday showed a comminuted fracture of the left humeral neck, and pathologic fracture was suspected with a concern of an underlying malignancy. There was soft tissue thickening in the area which could be related to edema post fracture or soft tissue mass. Note that I have seen this patient back in May 2016 for chest pain and suspected GI bleeding and back then was noted the patient sustained a fracture to her left humerus and this was being treated conservatively and she did not require any surgical intervention. The patient also is known to have history of syncope during which she did have had sustained the left humeral fracture, episodes of dysphagia, chronic anemia, small bowel obstruction related to a benign lesion of the intestine that was resected, chronic renal failure stage III kidney disease, CHF with diastolic dysfunction and ejection fraction of 55- 60%, aortic stenosis and previous coronary artery bypass surgery. On 08/17/2016 I'm seeing this patient in follow-up. The patient is resting comfortably in bed. The patient has no respiratory distress. Hemodynamically she is stable and the patient has been off dopamine for more than 12 hours. She is producing adequate amount of urine output. Her pulse ox is around 98% on 2 L of oxygen nasal cannula. She has a cardiac murmur which is related to aortic stenosis. As mentioned earlier, the patient had staph aureus Ammann MSSA and the blood, on 3 different blood cultures and the most recent blood cultures negative. For that reason, the patient was covered with cefazolin 2 g every 12 hours. Renal function is improving and creatinine is down to 1.5. Rest of the electrolytes show no major abnormalities. The patient continues to have a component of non-anion gap metabolic acidosis with a bicarb level of 18. The chest x-ray from admission showed evidence of any pneumonia. Echocardiogram from May 2016 showed a ejection fraction of 55-60% along with moderate degree of aortic stenosis. The patient is seen again today 08/18/2016 in follow-up on the regular medical floor. She is awake and alert in no acute distress. She did undergo transesophageal echocardiogram yesterday. There is no evidence of vegetation on any of the valves. There was noted severe aortic stenosis with moderate to severe mitral regurgitation and moderate to severe pulmonary hypertension. Today she denies any worsening shortness of breath. She is maintaining good O2 saturations in the mid 90s on 2 L/m per nasal cannula. She's been hemodynamically stable. She remains on cefazolin. Bicarb remains low at 18. She remains on sodium bicarbonate tablets. She remains in a negative balance. Creatinine improved to 1.50. Her hemoglobin is drifting down currently at 7.2. The patient is seen again today 08/19/2016 in follow-up on the regular medical floor. She is continuing to maintain O2 saturations in the 90s on 2 L/m. Nasal cannula. She is currently afebrile. No leukocytosis. Hemoglobin stable at 7.4. Bicarb is improved slightly at 20. Creatinine has recovered to 0.85. She did have a biopsy of the left shoulder results of which are pending. She still has significant discomfort in that shoulder. The patient was seen again today 08/21/2016 as she was now being transferred to the intensive care unit. She had developed recurrent GI bleeding. She had black tarry stools last night and a drop in her hemoglobin to 6.8. A repeat hemoglobin was 7.1 and then later today he was back to 6.3. She did have a previous reaction to a blood transfusion earlier this admission as well. Also noted was her INR 4.4. She did receive some vitamin K and it is currently 2.4. GI services and surgical services have been involved with her as well. Currently, she is seen resting fairly comfortable in bed. She is somewhat anxious due to her situation but denies any worsening shortness of breath, cough or congestion. No chest pain, no lightheadedness or dizziness. She is maintaining O2 saturations at 100% on 2 L/m per nasal cannula. She remains hemodynamically stable. Not requiring any pressor support. The patient is seen again today 08/22/2016 in the intensive care unit. She is awake and alert in no acute distress. She did receive a unit of transfer views packed red blood cells and her current hemoglobin is 8.4. INR 1.4. GI services are on the case and are she has not had any further black tarry stools considering EGD. The patient has continued to decline a colonoscopy. She has not had any further black tarry stools or hematoemesis. She continues on Protonix IV. Aspirate of the left shoulder did come back positive for methicillin sensitive Staphylococcus aureus in her blood cultures were also positive for MSSA. She has been maintained on cefazolin. She remains hemodynamically stable. She is maintaining good O2 saturations at 96% on room air. She is afebrile. Current creatinine 1.10. On 08/23/2016 the patient is on the medical floor. She is doing well. No specific complaints. No episodes of any GI bleeding. No fever or chills. No signs of septicemia. Still on IV cefazolin regarding MSSA bacteremia and possible osteomyelitis. No change in mental status. Hemoglobin is stable at 8.1. No nausea or vomiting. Tolerating diet. On 08/24/2016, patient is mostly complaining of slight nausea. No abdominal pain , no melena, no hematemesis, no evidence of GI bleeding, she is also complaining of slight shortness of breath. Remains on medications as noted for her MSSA bacteremia. Hemoglobin today is 8.4. Basic metabolic profile was reviewed, BUN is 53 creatinine is 1.17. The patient is seen again today 08/25/2016 in follow-up on the regular medical floor. She is awake and alert in no acute distress. She remains quite weak and mainly in bed at this point. She is maintaining good O2 saturations in the upper 90s on room air. She is afebrile. No further active bleeding documented. Current hemoglobin 8.2. White count 11.4. Creatinine 1.31. She remains on cefazolin for her MSSA and both the blood and the bone aspirate. The patient seen again today 08/26/2016 in follow-up on the regular medical floor. She did have episode of shortness of breath yesterday afternoon. A chest x-ray was consistent with congestive heart failure but not significantly worse as compared to previous. She is on Lasix 40 mg IV every 12 hours. Her renal function is about the same current creatinine 1.27. BUN 52. He remains on bicarb 650 mg twice a day. Her hemoglobin is 7.9 today. There are no plans for EGD/colonoscopy as the patient has continued to decline them as offered by GI services. He has been afebrile. Hemodynamically stable. Maintaining good O2 saturations in the 90s on room air. She remains on cefazolin for the MSSA bacteremia and left shoulder aspirate. A PICC line was placed yesterday. The patient is seen again today 08/27/2016 in follow-up in the regular medical floor. Her chest x-ray does continue to show evidence of congestive heart failure and some small pleural effusions. She is still requiring 2 L/m per nasal cannula to maintain O2 saturations in the 90s. We'll plan to do an ultrasound of the chest to determine if there is enough fluid for thoracentesis today. The patient is seen again today 08/28/2016 in follow-up on the regular medical floor. She is awake and alert in no acute distress. Her main complaint is that of nausea. No worsening shortness of breath, cough or congestion. She is dyspneic on minimal exertion however. Ultrasound of the chest did reveal a 9.2 cm pocket of fluid on the right and a 5.8 cm pocket of fluid on the left. We' ll plan for right sided thoracentesis today. The patient and her family at the bedside are agreeable. She is maintaining good O2 saturations in the high 90s on 2 L/m per nasal cannula. She's been hemodynamically stable. Current hemoglobin 7.8. The patient is seen again today 08/29/2016 in follow-up on the regular medical floor. She is currently awake and alert in no acute distress. She is breathing slightly better today as compared to yesterday. She did have a thoracentesis performed with approximately 1.2 L of fluid removed. Fluid analysis is pending. Her chest x-ray did reveal significant improvement in the right lung pleural effusion however she continues with a moderate-sized left pleural effusion as well. We'll plan to perform a thoracentesis today. He is maintaining good O2 saturations in the high 90s on 2 L/m per nasal cannula. She is currently afebrile. Her hemoglobin continues to drift down currently at 7.0. No signs of active bleeding. Her renal function has improved to creatinine of 1.01. On 08/30/2016, patient is about the same. I was planning to do a left-sided thoracentesis on this patient yesterday, however we had difficulty placing the patient in the proper disposition because of her left shoulder pain. I could not raise the left upper extremity up enough to safely perform a safety thoracentesis. Hence I decided to treat her pleural effusion medically rather than surgically. Her right-sided pleural effusion has completely resolved based on the last chest x-ray, however her small pleural effusions and the left side is about 5 cm pocket, hoping it will improve with diuretics only. Patient is still complaining of aches and pains, some shortness of breath, no chest pain , no nausea, no vomiting, no melena and no hematemesis. Hemoglobin is 7.7 WBC count is 8.0. Last chest x-ray was from 08/28, and I plan to repeat chest x-ray in a.m. On 08/31/2016, patient remains generally weak, fatigued, had apparently intermittent episodes of nausea and vomiting last night. No documented melena or hematemesis, however her hemoglobin today is 6.3. Her admitting physician was notified by the nurses, and the patient is to receive 1 unit of packed RBCs today, and follow-up hemoglobin will be retested. Pulmonary-mar patient is about the same, continues to have a small left pleural effusion, the right- sided pleural effusion has completely resolved after the last thoracentesis. I still believe the patient will likely benefit from left thoracentesis, however positioning the patient was quite difficult to be able to do a safety thoracentesis, and I have recommended medical treatment rather than surgical intervention. Overall, the patient is not making significant dramatic recovery , based on the fact that she has multiple comorbidities as noted above. The patient is seen again today 09/01/2016 in follow-up on the regular medical floor. She is currently awake and alert in no acute distress. She is asking to go home. She denies any worsening shortness of breath, cough or congestion. Her chest x-ray continues to show some small left pleural effusion. She remains on diuretics. Her hemoglobin remains stable at 7.7. She is status post a total of 4 units of packed red blood cells since her admission. She remains on appropriate antibiotics for Staphylococcus aureus bacteremia and left shoulder infection. The patient is seen again today 09/04/2016 in follow-up on the regular medical floor. She did undergo EGD yesterday was found to have a 1 cm bleeding angiectasia in the second part of the duodenum which was cauterized. She does have esophagitis as well. Current hemoglobin 7.6. Unfortunately, the patient continues to do poorly. She is not eating or drinking now. She continues to get progressively weaker. She is maintaining good O2 saturations in the high 90s on 3 L/m per nasal cannula. She has been afebrile. Objective - Vital Signs Vital signs: Vital Signs Temp 97.6 F 09/04/16 07:00 Pulse 76 09/04/16 11:45 Resp 20 09/04/16 07:00 BP 121/52 09/04/16 07:00 Pulse Ox 97 09/04/16 07:00 Intake & Output 09/03/16 09/04/16 09/04/16 18:59 06:59 18:59 Intake Total 190 Output Total 600 850 Balance -410 -850 Weight 79 kg Intake: IV 100 Oral 90 Output: Urine 600 850 Other: Voiding Method Indwelling Catheter Indwelling Catheter Indwelling Catheter # Voids 1 # Bowel Movements 1 - Exam GENERAL EXAM: Weak, pale, lethargic. EYES: Normal reaction of pupils, equal size. NOSE: Clear with pink turbinates. THROAT: No erythema or exudates. NECK: No masses, no JVD. CHEST: No chest wall deformity. LUNGS: Equal air entry with crackles in the posterior bases more so on the left. CVS: S1 and S2 normal with an audible murmur, regular rhythm. ABDOMEN: No hepatosplenomegaly, normal bowel sounds, no guarding or rigidity. Extremities: There is 1+ peripheral edema. No clubbing, no cyanosis. Peripheral pulses are intact. - Labs CBC & Chem 7: 09/04/16 06:55 09/04/16 06:55 Labs: Abnormal Lab Results - Last 24 Hours (Table) 09/03/16 09/03/16 09/04/16 Range/Units 16:43 20:26 06:55 RBC (3.80-5.40) m/uL Hgb (11.4-16.0) gm/dL Hct (34.0-46.0) % MCHC (31.0-37.0) g/dL Lymphocytes # (1.0-4.8) k/uL PT (9.0-12.0) sec Potassium 3.1 L (3.5-5.1) mmol/L Chloride 88 L (98-107) mmol/L Carbon Dioxide 43 H* (22-30) mmol/L BUN 41 H (7-17) mg/dL Creatinine 1.16 H (0.52-1.04) mg/dL Glucose 115 H (74-99) mg/dL POC Glucose (mg/dL) 132 H 124 H (75-99) mg/dL Calcium 8.2 L (8.4-10.2) mg/dL Total Protein 4.8 L (6.3-8.2) g/dL Albumin 2.4 L (3.5-5.0) g/dL 09/04/16 09/04/16 09/04/16 Range/Units 06:55 06:55 07:03 RBC 2.76 L (3.80-5.40) m/uL Hgb 7.6 L (11.4-16.0) gm/dL Hct 24.7 L (34.0-46.0) % MCHC 30.7 L (31.0-37.0) g/dL Lymphocytes # 0.8 L (1.0-4.8) k/uL PT 12.3 H (9.0-12.0) sec Potassium (3.5-5.1) mmol/L Chloride (98-107) mmol/L Carbon Dioxide (22-30) mmol/L BUN (7-17) mg/dL Creatinine (0.52-1.04) mg/dL Glucose (74-99) mg/dL POC Glucose (mg/dL) 125 H (75-99) mg/dL Calcium (8.4-10.2) mg/dL Total Protein (6.3-8.2) g/dL Albumin (3.5-5.0) g/dL 09/04/16 Range/Units 12:07 RBC (3.80-5.40) m/uL Hgb (11.4-16.0) gm/dL Hct (34.0-46.0) % MCHC (31.0-37.0) g/dL Lymphocytes # (1.0-4.8) k/uL PT (9.0-12.0) sec Potassium (3.5-5.1) mmol/L Chloride (98-107) mmol/L Carbon Dioxide (22-30) mmol/L BUN (7-17) mg/dL Creatinine (0.52-1.04) mg/dL Glucose (74-99) mg/dL POC Glucose (mg/dL) 125 H (75-99) mg/dL Calcium (8.4-10.2) mg/dL Total Protein (6.3-8.2) g/dL Albumin (3.5-5.0) g/dL Assessment and Plan Plan: Impression: #1 Non-ST segment elevation myocardial infarction. #2 Anemia, with recurrent bleeding. Status post 5 units of red blood cells. Current hemoglobin 7.6. She had undergone an EGD in 09/03/2016 and was found to have a bleeding angiectasia in the second part of the duodenum and is status post cautery. There is also noted esophagitis. #3 Sepsis secondary to Methicillin Sensitive Staphylococcus aureus in both the blood and left shoulder aspirate. #4 Febrile illness secondary to above and suspected urinary tract infection as well. #5 Acute exacerbation of diastolic congestive heart failure. #6 Hyperlipidemia. #7 Diabetes mellitus. #8 Hypertension. #9 History of coronary artery disease with previous coronary artery bypass grafting. #10 Left upper extremity pain secondary to recent left humeral fracture. Aspirate is positive for MSSA. #11 Valvular heart disease with severe aortic stenosis, moderate to severe mitral regurgitation, moderate to severe pulmonary hypertension. #12 Acute kidney injury secondary to hypotension/hypo-profusion. Current creatinine 1.16. #13 Bilateral pleural effusions more so on the right, status post 1.2 L of fluid removed from the right lung. No plans for left-sided thoracentesis at this time. #14 Poor overall functional performance based on the above-mentioned multiple comorbidities. Plan: The patient was seen and evaluated by Dr. Uribe. The patient's overall prognosis remains quite poor based on her multiple above-mentioned comorbidities. She probably should be considered for hospice/comfort care. In the interim, we'll continue with her diuretics. Continue to monitor hemoglobin. We will continue to follow.
--- NOTE | 2016-09-04 14:14 | P.PN ---
Subjective This is a 80-year-old female, patient of [facility]. She has a known past medical history of myocardial infarction and three-vessel coronary artery bypass graft, coronary artery disease, hyperlipidemia, hypertension, diabetes, chronic kidney disease and dementia. Also history of anemia with recent EGD and May 2016 revealing gastritis colonoscopy was several years ago. She presents to the hospital with complaints of chest pain, abdominal pain , black stools with episodes of diarrhea. She's found have evidence of a non- ST elevated [place]. Not able to be on aspirin or IV heparin at this time due to her significant anemia. Patient is found to have a UTI as well as positive blood cultures growing presumptive staph aureus. She currently on vancomycin and Rocephin. She still complaining of some abdominal pain. Also having some shortness of breath. Hemoglobin is 7.1 today she'll get receive 1 unit of blood. Creatinine has jumped up to 2.24. Nephrology will be consulted Lasix and lisinopril are on hold. 08/17/2016 patient currently in the ICU. She had a reaction to blood transfusion on Wednesday. Hemoglobin is 7.2. She is having stools. Loose but not dark and no blood present. She is still complaining of some belly pain. Left arm is in sling. She has been off of the dopamine since yesterday. She is followed by multiple consulting physicians. Continue to monitor closely. The planning on transferring her to the sixth floor this afternoon. 08/20/2016 patient still complaining of some chest pain and abdominal pain. Yesterday she was sent to the telemetry floor due to chest pain. Troponin slightly elevated 0.318 but improved since admission. Cardiology has been reconsulted. Patient reports having bowel movements, denies any nausea vomiting. Denies any difficulty with urinating. 08/24/2016 patient reports being more short of breath today. Chest x-ray did show evidence of fluid congestion and possible CHF. Nephrology ordered 1 dose of IV Lasix. Patient reports having black stools. Stool for occult blood was positive. GI following. Hemoglobin 8.4. Denies any chest pain. Denies any nausea or vomiting. 08/27/2016 patient still complaining of some epigastric abdominal pain with chest pains. They're the same pains that she is been dealing with. She was also having some difficulty swallowing. She was evaluated by speech therapy and they have adjusted her diet to thickened liquids. She reports having formed regular stools. Denies any nausea or vomiting. Decrease in appetite. 08/28/2016 patient lying in bed still complaining of epigastric abdominal pain and some chest pain. She'll be trying to work with physical therapy this morning. She was found to have evidence of bilateral pleural effusion's noted on chest ultrasound. And she will be undergoing a right-sided thoracentesis this afternoon. Patient is evaluated by speech therapy and she is scheduled for modified barium swallow study later today. Patient denies any vomiting. She did have a brown stool today. Denies any difficulty urinating. Case discussed with granddaughter at bedside 09/03/2016 patient underwent EGD today. Still reporting abdominal discomfort and chest pain at times. Denies any nausea or vomiting. Had large black stool yesterday. She did receive a unit of blood as well as vitamin K for elevated INR. INR today 1.5. Hemoglobin 8.2 09/04/2016 patient still complaining of some chest discomfort and abdominal discomfort. Did have an dark brown stool yesterday. Underwent EGD yesterday. Humulin 7.6 she is receiving 1 unit of blood. Per nursing patient is refusing physical therapy and is not eating. Objective - Vital Signs Vital signs: Vital Signs Temp 97.1 F L 09/04/16 14:12 Pulse 58 L 09/04/16 14:12 Resp 18 09/04/16 14:12 BP 114/50 09/04/16 14:12 Pulse Ox 100 09/04/16 14:12 Intake & Output 09/03/16 09/04/16 09/04/16 18:59 06:59 18:59 Intake Total 190 0 Output Total 600 850 Balance -410 -850 0 Weight 79 kg Intake: IV 100 Oral 90 Blood Product 0 Rc As-1 Unit 0 [id number] Output: Urine 600 850 Other: Voiding Method Indwelling Catheter Indwelling Catheter Indwelling Catheter # Voids 1 # Bowel Movements 1 - Exam Head normocephalic Neck supple Lungs diminished bilaterally. Crackles at bases Heart regular rate and rhythm S1-S2, no rub or gallop positive murmur. Tenderness with palpation of chest wall Abdomen is soft nondistended positive bowel sounds epigastric tenderness Extremities no edema Neuro awake and alert eating breakfast - Labs CBC & Chem 7: 09/04/16 06:55 09/04/16 06:55 Labs: Abnormal Lab Results - Last 24 Hours (Table) 09/03/16 09/03/16 09/04/16 Range/Units 16:43 20:26 06:55 RBC (3.80-5.40) m/uL Hgb (11.4-16.0) gm/dL Hct (34.0-46.0) % MCHC (31.0-37.0) g/dL Lymphocytes # (1.0-4.8) k/uL PT (9.0-12.0) sec Potassium 3.1 L (3.5-5.1) mmol/L Chloride 88 L (98-107) mmol/L Carbon Dioxide 43 H* (22-30) mmol/L BUN 41 H (7-17) mg/dL Creatinine 1.16 H (0.52-1.04) mg/dL Glucose 115 H (74-99) mg/dL POC Glucose (mg/dL) 132 H 124 H (75-99) mg/dL Calcium 8.2 L (8.4-10.2) mg/dL Total Protein 4.8 L (6.3-8.2) g/dL Albumin 2.4 L (3.5-5.0) g/dL Crossmatch 09/04/16 09/04/16 09/04/16 Range/Units 06:55 06:55 07:03 RBC 2.76 L (3.80-5.40) m/uL Hgb 7.6 L (11.4-16.0) gm/dL Hct 24.7 L (34.0-46.0) % MCHC 30.7 L (31.0-37.0) g/dL Lymphocytes # 0.8 L (1.0-4.8) k/uL PT 12.3 H (9.0-12.0) sec Potassium (3.5-5.1) mmol/L Chloride (98-107) mmol/L Carbon Dioxide (22-30) mmol/L BUN (7-17) mg/dL Creatinine (0.52-1.04) mg/dL Glucose (74-99) mg/dL POC Glucose (mg/dL) 125 H (75-99) mg/dL Calcium (8.4-10.2) mg/dL Total Protein (6.3-8.2) g/dL Albumin (3.5-5.0) g/dL Crossmatch 09/04/16 09/04/16 Range/Units 11:14 12:07 RBC (3.80-5.40) m/uL Hgb (11.4-16.0) gm/dL Hct (34.0-46.0) % MCHC (31.0-37.0) g/dL Lymphocytes # (1.0-4.8) k/uL PT (9.0-12.0) sec Potassium (3.5-5.1) mmol/L Chloride (98-107) mmol/L Carbon Dioxide (22-30) mmol/L BUN (7-17) mg/dL Creatinine (0.52-1.04) mg/dL Glucose (74-99) mg/dL POC Glucose (mg/dL) 125 H (75-99) mg/dL Calcium (8.4-10.2) mg/dL Total Protein (6.3-8.2) g/dL Albumin (3.5-5.0) g/dL Crossmatch See Detail Assessment and Plan Plan: #1 acute Non-ST segment elevation myocardial infarction. Evaluated by cardiology during this admission, no intervention recommended so far #2 acute blood loss anemia secondary to GI bleed. 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 She underwent cauterization of that area. Also there is a leg grade B reflux esophagitis. Continue Protonix. Continue monitoring CBC. Patient hemoglobin is down to 7.6. 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 Infectious diseases recommending cefazolin 2 g for 6 to 8 weeks weeks #4 UTI. Urine culture no growth #5 Acute exacerbation of diastolic congestive heart failure. Continue IV Lasix. Pulmonary following ordered chest ultrasound to review of possible thoracentesis needed #6 Hyperlipidemia. #7 Diabetes mellitus. #8 essential Hypertension. #9 History of coronary artery disease with previous coronary artery bypass grafting. #10 Left upper extremity pain secondary to recent left humeral fracture. #11 Valvular heart disease with severe aortic stenosis, moderate to severe mitral regurgitation, moderate to severe pulmonary hypertension. #12 Acute kidney injury secondary to hypotension and hypoprofusion. Due to sepsis and anemia. Nephrology following. # 13 coagulopathy secondary to vitamin K deficiency due to poor oral intake. Patient evaluated by hematology. She did receive vitamin K. INR is 1.5. Continue to monitor PT/INRs #14 hypokalemia patient receiving potassium supplement #15 right sided pleural effusion status post thoracentesis #16 elevated CO2: Patient receiving Diamox. GI prophylaxis IV Protonix. Continue SCDs I performed an examination of the patient and discussed their management with the physician Clinical Auditor. I have reviewed the Physician Clinical Auditor's notes and agree with the documented findings and plan of care
[2016-09-04] MEDS: MEGESTROL 400 MG/10 ML CUP PO SCH (16:36)
[2016-09-04 17:44] LABS: Glucose,Whole Blood 119 mg/dL (75-99)
--- NOTE | 2016-09-04 19:34 | PN ---
DATE OF SERVICE: 09/04/2016 REASON FOR FOLLOWUP: MSSA bacteremia and left humerus osteomyelitis. INTERVAL HISTORY: The patient is afebrile. She is complaining of some gastric upset, nausea. Denies significant chest pain or shortness of breath or cough. On examination, blood pressure is 114/50 with a pulse of 58, temperature 97.1. She is 100% on room air. General description is an elderly female up in the chair in no distress. RESPIRATORY SYSTEM: Unlabored breathing. Clear to auscultation anteriorly. HEART: S1, S2. Regular rate and rhythm. ABDOMEN: Soft. Slightly distended and tender to touch in the epigastric area. LABS: Hemoglobin 7.3, white count 5.6 with a BUN of 41, creatinine 1.16. DIAGNOSTIC IMPRESSION AND PLAN: Patient with methicillin-susceptible Staphylococcus aureus bacteremia, currently covered with cefazolin; should be continued for at least 6 to 8 weeks total. Patient seems to have problems with GI bleeding. GI Service is following closely. Continue management of ( ) per them when stabilized from other consultants. She is able to go home from ID standpoint and finish antibiotic therapy in the outpatient setting.
[2016-09-04 21:20] LABS: Glucose,Whole Blood 188 mg/dL (75-99)
[2016-09-04] MEDS: ALPRAZolam 0.25 MG TAB PO PRN (22:37)
[2016-09-04] MEDS: MELATONIN 5 MG TABLET PO SCH (22:41)
[2016-09-04] MEDS: CHOLECALCIFEROL 1,000 UNIT TAB PO SCH (22:41)
[2016-09-04] MEDS: MULTIVITAMINS, THERA 1 EACH TAB PO SCH (22:41)
[2016-09-04] MEDS: ATORVASTATIN 40 MG TAB PO SCH (22:42)
[2016-09-04] MEDS: DONEPEZIL 10 MG TAB PO SCH (22:42)
[2016-09-04] MEDS: FENOFIBRATE 160 MG TAB PO SCH (22:42)
[2016-09-04] MEDS: SERTRALINE 100 MG TAB PO SCH (22:42)
[2016-09-05] MEDS: HYDROcodone/APAP 10-325MG 1 EACH TAB PO PRN ×3 (06:23→20:44)
[2016-09-05 07:05] LABS: Basophils % (A) 0 %; CH 27.3; CHCM 29.9; Eosinophils # (A) 0.2 k/uL (0-0.7); Eosinophils % (A) 4 %; HCT 29.5 % (34.0-46.0); HDW 4.07; HGB 8.8 gm/dL (11.4-16.0); Hypochromasia Marked; Luc # (Auto) 0.11; Luc % (Auto) 2; Lymphocytes % (A) 16 %; MCH 27.4 pg (25.0-35.0); MCHC 29.9 g/dL (31.0-37.0); MCV 91.7 fL (80.0-100.0); Monocytes # (A) 0.6 k/uL (0-1.0); Monocytes % (A) 10 %; Neutrophils # (A) 4.1 k/uL (1.3-7.7); Neutrophils % (A) 68 %; Poikilocytosis Moderate; RBC 3.21 m/uL (3.80-5.40); RDW 15.6 % (11.5-15.5); WBC (Perox) 6.21
[2016-09-05 07:15] LABS: INR 1.3 (<1.1); Prothrombin Time 12.4 sec (9.0-12.0)
[2016-09-05 07:23] LABS: Glucose,Whole Blood 97 mg/dL (75-99)
[2016-09-05 07:26] LABS: Calcium 8.5 mg/dL (8.4-10.2); Potassium 3.1 mmol/L (3.5-5.1); Total Bilirubin 0.3 mg/dL (0.2-1.3)
[2016-09-05] MEDS: PANTOPRAZOLE 40 MG TABLET PO SCH (08:14)
[2016-09-05] MEDS: EZETIMIBE 10 MG TAB PO SCH (08:14)
[2016-09-05] MEDS: DOCUSATE 100 MG CAP PO SCH (08:14)
[2016-09-05] MEDS: MEGESTROL 400 MG/10 ML CUP PO SCH (08:14)
[2016-09-05] MEDS: FUROSEMIDE 10 MG/ML 4 ML VIAL IV SCH (08:14)
[2016-09-05] MEDS: ceFAZolin 2 GM in SODIUM CHLORIDE 0.9% 100 ML IVPB SCH ×2 (08:15→20:48)
[2016-09-05] MEDS: INSULIN LISPRO (humaLOG) 300 UNIT/3 ML VIAL SQ SCH ×4 (08:15→20:58)
[2016-09-05] MEDS: METOPROLOL TARTRATE 25 MG TAB PO SCH ×3 (08:16→20:45)
[2016-09-05] MEDS: POLYETHYLENE GLYCOL 3350 17 GM POWD.PACK PO SCH (08:16)
[2016-09-05] MEDS: ISOSORBIDE MONONITRATE ER 30 MG TAB.ER.24H PO SCH (08:16)
[2016-09-05] MEDS: POTASSIUM CHLORIDE ER 20 MEQ TAB.ER PO SCH ×2 (08:21→08:23)
[2016-09-05] MEDS ORDERED: Potassium Replacement Protocol 1 EACH MISC MISCELLANE PRN (08:37)
[2016-09-05] MEDS: IPRATROPIUM-ALBUTEROL 3 ML NEB INHALATION SCH ×4 (08:39→19:33)
[2016-09-05] MEDS: POTASSIUM CHLORIDE 10 MEQ, LIDOCAINE 2% INJ 10 MG in SODIUM CHLORIDE 0.9% 100 ML IV SCH ×2 (09:00→10:30)
--- NOTE | 2016-09-05 09:17 | P.PN ---
Subjective Subjective This is a 80-year-old female, patient of [facility]. She has a known past medical history of myocardial infarction and three-vessel coronary artery bypass graft, coronary artery disease, hyperlipidemia, hypertension, diabetes, chronic kidney disease and dementia. Also history of anemia with recent EGD and May 2016 revealing gastritis colonoscopy was several years ago. She presents to the hospital with complaints of chest pain, abdominal pain , black stools with episodes of diarrhea. She's found have evidence of a non- ST elevated [place]. Not able to be on aspirin or IV heparin at this time due to her significant anemia. Patient is found to have a UTI as well as positive blood cultures growing presumptive staph aureus. She currently on vancomycin and Rocephin. She still complaining of some abdominal pain. Also having some shortness of breath. Hemoglobin is 7.1 today she'll get receive 1 unit of blood. Creatinine has jumped up to 2.24. Nephrology will be consulted Lasix and lisinopril are on hold. 08/17/2016 patient currently in the ICU. She had a reaction to blood transfusion on Wednesday. Hemoglobin is 7.2. She is having stools. Loose but not dark and no blood present. She is still complaining of some belly pain. Left arm is in sling. She has been off of the dopamine since yesterday. She is followed by multiple consulting physicians. Continue to monitor closely. The planning on transferring her to the sixth floor this afternoon. 08/20/2016 patient still complaining of some chest pain and abdominal pain. Yesterday she was sent to the telemetry floor due to chest pain. Troponin slightly elevated 0.318 but improved since admission. Cardiology has been reconsulted. Patient reports having bowel movements, denies any nausea vomiting. Denies any difficulty with urinating. 08/24/2016 patient reports being more short of breath today. Chest x-ray did show evidence of fluid congestion and possible CHF. Nephrology ordered 1 dose of IV Lasix. Patient reports having black stools. Stool for occult blood was positive. GI following. Hemoglobin 8.4. Denies any chest pain. Denies any nausea or vomiting. 08/27/2016 patient still complaining of some epigastric abdominal pain with chest pains. They're the same pains that she is been dealing with. She was also having some difficulty swallowing. She was evaluated by speech therapy and they have adjusted her diet to thickened liquids. She reports having formed regular stools. Denies any nausea or vomiting. Decrease in appetite. 08/28/2016 patient lying in bed still complaining of epigastric abdominal pain and some chest pain. She'll be trying to work with physical therapy this morning. She was found to have evidence of bilateral pleural effusion's noted on chest ultrasound. And she will be undergoing a right-sided thoracentesis this afternoon. Patient is evaluated by speech therapy and she is scheduled for modified barium swallow study later today. Patient denies any vomiting. She did have a brown stool today. Denies any difficulty urinating. Case discussed with granddaughter at bedside 09/03/2016 patient underwent EGD today. Still reporting abdominal discomfort and chest pain at times. Denies any nausea or vomiting. Had large black stool yesterday. She did receive a unit of blood as well as vitamin K for elevated INR. INR today 1.5. Hemoglobin 8.2 09/04/2016 patient still complaining of some chest discomfort and abdominal discomfort. Did have an dark brown stool yesterday. Underwent EGD yesterday. Humulin 7.6 she is receiving 1 unit of blood. Per nursing patient is refusing physical therapy and is not eating. 09/05/2016 nursing reports patient is much encouragement to take oral liquids currently is refusing physical therapy and to take a diet. Patient continues to squeezes her eyes shut tight and will not open eyes when attempting to engage patient in conversation. CO2 this morning is 41. Currently on nasal cannula 3 L. Hemoglobin is up to 8.8 did receive 1 unit of packed red blood cells on September 04. Objective - Vital Signs Vital signs: Vital Signs Temp 97.3 F L 09/05/16 07:00 Pulse 80 09/05/16 08:58 Resp 19 09/05/16 07:00 BP 95/44 09/05/16 07:00 Pulse Ox 98 09/05/16 07:00 Intake & Output 09/04/16 09/05/16 09/05/16 18:59 06:59 18:59 Intake Total 310 Output Total 1850 Balance 310 -1850 Intake: Blood Product 310 Rc As-1 Unit 310 [id number] Output: Urine 1850 Other: Voiding Method Indwelling Catheter Indwelling Catheter Indwelling Catheter # Voids 1 # Bowel Movements 0 0 - Exam Physical exam 80-year-old female resting in bed appears in no acute distress Lungs posterior diminished at the bases dry crackles noted currently on 3 L nasal cannula sats are documented 98% Heart S1-S2 audible regular Abdomen soft nontender no frequent stooling indwelling Pham catheter in place Extremities Venodyne's on to the bilateral lower extremities no edema - Labs CBC & Chem 7: 09/05/16 06:30 09/05/16 06:30 Labs: Abnormal Lab Results - Last 24 Hours (Table) 09/04/16 09/04/16 09/04/16 Range/Units 11:14 12:07 17:24 RBC (3.80-5.40) m/uL Hgb (11.4-16.0) gm/dL Hct (34.0-46.0) % MCHC (31.0-37.0) g/dL RDW (11.5-15.5) % PT (9.0-12.0) sec Potassium (3.5-5.1) mmol/L Chloride (98-107) mmol/L Carbon Dioxide (22-30) mmol/L BUN (7-17) mg/dL Creatinine (0.52-1.04) mg/dL POC Glucose (mg/dL) 125 H 119 H (75-99) mg/dL Total Protein (6.3-8.2) g/dL Albumin (3.5-5.0) g/dL Crossmatch See Detail 09/04/16 09/05/16 09/05/16 Range/Units 21:18 06:30 06:30 RBC 3.21 L (3.80-5.40) m/uL Hgb 8.8 L (11.4-16.0) gm/dL Hct 29.5 L (34.0-46.0) % MCHC 29.9 L (31.0-37.0) g/dL RDW 15.6 H (11.5-15.5) % PT 12.4 H (9.0-12.0) sec Potassium (3.5-5.1) mmol/L Chloride (98-107) mmol/L Carbon Dioxide (22-30) mmol/L BUN (7-17) mg/dL Creatinine (0.52-1.04) mg/dL POC Glucose (mg/dL) 188 H (75-99) mg/dL Total Protein (6.3-8.2) g/dL Albumin (3.5-5.0) g/dL Crossmatch 09/05/16 Range/Units 06:30 RBC (3.80-5.40) m/uL Hgb (11.4-16.0) gm/dL Hct (34.0-46.0) % MCHC (31.0-37.0) g/dL RDW (11.5-15.5) % PT (9.0-12.0) sec Potassium 3.1 L (3.5-5.1) mmol/L Chloride 91 L (98-107) mmol/L Carbon Dioxide 41 H* (22-30) mmol/L BUN 37 H (7-17) mg/dL Creatinine 1.11 H (0.52-1.04) mg/dL POC Glucose (mg/dL) (75-99) mg/dL Total Protein 5.0 L (6.3-8.2) g/dL Albumin 2.5 L (3.5-5.0) g/dL Crossmatch Assessment and Plan Plan: Assessment and Plan Plan: #1 acute Non-ST segment elevation myocardial infarction. Evaluated by cardiology during this admission, no intervention recommended so far #2 acute blood loss anemia secondary to GI bleed. 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 She underwent cauterization of that area. Also there is grade B reflux esophagitis. Continue Protonix. Continue monitoring CBC. 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 Infectious diseases recommending cefazolin 2 g for 6 to 8 weeks weeks #4 UTI. Urine culture no growth #5 Acute exacerbation of diastolic congestive heart failure. Continue IV Lasix. Pulmonary following ordered chest ultrasound to review of possible thoracentesis needed #6 Hyperlipidemia. #7 Diabetes mellitus. Type II tox-eirmjzs-pwvmgrlsn hemoglobin A1c 5.9 #8 essential Hypertension. #9 History of coronary artery disease with previous coronary artery bypass grafting. #10 Left upper extremity pain secondary to recent left humeral fracture. #11 Valvular heart disease with severe aortic stenosis, moderate to severe mitral regurgitation, moderate to severe pulmonary hypertension. #12 Acute kidney injury secondary to hypotension and hypoprofusion. Due to sepsis and anemia. Nephrology following. # 13 coagulopathy secondary to vitamin K deficiency due to poor oral intake. Patient evaluated by hematology. She did receive vitamin K. INR is 1.3. Continue to monitor PT/INRs #14 hypokalemia patient receiving potassium supplement persist #15 right sided pleural effusion status post thoracentesis #16 elevated CO2: Patient receiving Diamox. Encephalopathy likely metabolic GI prophylaxis IV Protonix. Continue SCDs Titrate the O2 down keep sats greater than 88% Poor overall functional performance based on the above-mentioned multiple comorbidities The above dictated assessment and findings were discussed with dr virginia Faulkner and the plan of care have been dictated as directed. Karol Lemos nurse practitioner acting as a scribe for dr coleman
[2016-09-05 12:20] LABS: Glucose,Whole Blood 92 mg/dL (75-99)
--- NOTE | 2016-09-05 12:48 | P.PN ---
Subjective Principal diagnosis: This is a 80-year-old female with acute kidney injury which resolved and is being followed up because of metabolic alkalosis and hypokalemia. She was admitted with chest pain had acute AR. Additionally she has bacteremia with staph aureus secondary to possibly left humerus osteomyelitis. She is currently on acetazolamide and her bicarb still remains high. She's not feeling well she is complaining of chest pain. Also short of breath. She is somewhat inconsistent about her complaints. To the nurses she is saying that the pain is actually the left shoulder. She is known with UTI, diabetes type 2, history of coronary artery bypass graft , severe aortic stenosis and pulmonary hypertension moderate. Objective - Vital Signs Vital signs: Vital Signs Temp 97.3 F L 09/05/16 07:00 Pulse 76 09/05/16 12:35 Resp 19 09/05/16 07:00 BP 127/65 09/05/16 11:13 Pulse Ox 98 09/05/16 11:13 Intake & Output 09/04/16 09/05/16 09/05/16 18:59 06:59 18:59 Intake Total 310 Output Total 1850 Balance 310 -1850 Intake: Blood Product 310 Rc As-1 Unit 310 [id number] Output: Urine 1850 Other: Voiding Method Indwelling Catheter Indwelling Catheter Indwelling Catheter # Voids 1 # Bowel Movements 0 0 On examination she looks anxious. Warm to touch. HEENT exam no JVP neck is supple, No facial asymmetry Lungs are clear to auscultation percussion good air entry bilaterally Heart sounds are unremarkable no murmur rub gallop Abdomen soft nontender, no masses or organomegaly. Extremity exam was no edema Neurologically awake alert oriented. - Labs CBC & Chem 7: 09/05/16 06:30 09/05/16 06:30 Labs: Abnormal Lab Results - Last 24 Hours (Table) 09/04/16 09/04/16 09/04/16 Range/Units 11:14 17:24 21:18 RBC (3.80-5.40) m/uL Hgb (11.4-16.0) gm/dL Hct (34.0-46.0) % MCHC (31.0-37.0) g/dL RDW (11.5-15.5) % PT (9.0-12.0) sec Potassium (3.5-5.1) mmol/L Chloride (98-107) mmol/L Carbon Dioxide (22-30) mmol/L BUN (7-17) mg/dL Creatinine (0.52-1.04) mg/dL POC Glucose (mg/dL) 119 H 188 H (75-99) mg/dL Total Protein (6.3-8.2) g/dL Albumin (3.5-5.0) g/dL Crossmatch See Detail 09/05/16 09/05/16 09/05/16 Range/Units 06:30 06:30 06:30 RBC 3.21 L (3.80-5.40) m/uL Hgb 8.8 L (11.4-16.0) gm/dL Hct 29.5 L (34.0-46.0) % MCHC 29.9 L (31.0-37.0) g/dL RDW 15.6 H (11.5-15.5) % PT 12.4 H (9.0-12.0) sec Potassium 3.1 L (3.5-5.1) mmol/L Chloride 91 L (98-107) mmol/L Carbon Dioxide 41 H* (22-30) mmol/L BUN 37 H (7-17) mg/dL Creatinine 1.11 H (0.52-1.04) mg/dL POC Glucose (mg/dL) (75-99) mg/dL Total Protein 5.0 L (6.3-8.2) g/dL Albumin 2.5 L (3.5-5.0) g/dL Crossmatch Assessment and Plan Plan: Impression. 1. Acute kidney injury from prerenal resolved. 2. Metabolic alkalosis from diuresis. Lasix dose has been reduced. Currently on acetazolamide IV. 3. Hypokalemia secondary to diuretics. 4. Staph aureus bacteremia with osteitis left humerus. 5. Acute AR with acute radius history of coronary artery bypass graft. Patient complains of pain but inconsistent in its location. Recommendation. Will check a troponin level. Discontinue acetazolamide IV and watch her bicarb given her IV Lasix has been reduced from 40 every 12 hours to 20 once a day. Replace potassium she needs about 60 mEq.
[2016-09-05] MEDS: POTASSIUM CHLORIDE 10 MEQ in WATER FOR INJECTION 1 100ML.BAG IVPB SCH ×2 (14:12→15:07)
[2016-09-05] MEDS: HYDROmorphone 1 MG/ML 1 ML SYRINGE IVP PRN (15:07)
[2016-09-05 17:41] LABS: Glucose,Whole Blood 113 mg/dL (75-99)
[2016-09-05 20:09] LABS: Glucose,Whole Blood 142 mg/dL (75-99)
[2016-09-05] MEDS: FENOFIBRATE 160 MG TAB PO SCH (20:45)
[2016-09-05] MEDS: SERTRALINE 100 MG TAB PO SCH (20:45)
[2016-09-05] MEDS: ATORVASTATIN 40 MG TAB PO SCH (20:45)
[2016-09-05] MEDS: DONEPEZIL 10 MG TAB PO SCH (20:45)
[2016-09-05] MEDS: MULTIVITAMINS, THERA 1 EACH TAB PO SCH (20:45)
[2016-09-05] MEDS: CHOLECALCIFEROL 1,000 UNIT TAB PO SCH (20:46)
[2016-09-05] MEDS: MELATONIN 5 MG TABLET PO SCH (20:46)
[2016-09-05] MEDS: ALPRAZolam 0.25 MG TAB PO PRN (20:48)
[2016-09-06 07:13] LABS: Basophils % (A) 0 %; CH 27.5; CHCM 29.9; Eosinophils # (A) 0.2 k/uL (0-0.7); Eosinophils % (A) 3 %; HCT 31.4 % (34.0-46.0); HDW 3.73; HGB 9.4 gm/dL (11.4-16.0); Hypochromasia Marked; Luc # (Auto) 0.11; Luc % (Auto) 2; Lymphocytes % (A) 15 %; MCH 27.8 pg (25.0-35.0); MCV 92.4 fL (80.0-100.0); Monocytes # (A) 0.6 k/uL (0-1.0); Monocytes % (A) 10 %; Neutrophils # (A) 4.5 k/uL (1.3-7.7); Neutrophils % (A) 70 %; Poikilocytosis Slight; RDW 15.6 % (11.5-15.5); WBC 6.3 k/uL (3.8-10.6); WBC (Perox) 6.83
[2016-09-06 07:23] LABS: INR 1.3 (<1.1); Prothrombin Time 12.5 sec (9.0-12.0)
[2016-09-06 07:26] LABS: Chloride 95 mmol/L (98-107); Glucose 86 mg/dL (74-99); Potassium 3.2 mmol/L (3.5-5.1); Sodium 142 mmol/L (137-145); Total Protein 4.8 g/dL (6.3-8.2)
[2016-09-06 07:28] LABS: Glucose,Whole Blood 95 mg/dL (75-99)
[2016-09-06 07:28] LABS: ALT 20 U/L (9-52); AST 21 U/L (14-36); Alkaline Phosphatase 69 U/L (38-126); Anion Gap 7 mmol/L; Blood Urea Nitrogen 30 mg/dL (7-17); Calcium 8.9 mg/dL (8.4-10.2); Non-African American GFR(MDRD) 53 (>60 ml/min/1.73 sqM); Total Bilirubin 0.2 mg/dL (0.2-1.3)
[2016-09-06] MEDS: INSULIN LISPRO (humaLOG) 300 UNIT/3 ML VIAL SQ SCH ×4 (07:39→21:15)
[2016-09-06 07:57] LABS: Carbon Dioxide 40 mmol/L (22-30)
[2016-09-06] MEDS: ceFAZolin 2 GM in SODIUM CHLORIDE 0.9% 100 ML IVPB SCH ×2 (08:01→20:41)
[2016-09-06] MEDS: ISOSORBIDE MONONITRATE ER 30 MG TAB.ER.24H PO SCH (08:01)
[2016-09-06] MEDS: DOCUSATE 100 MG CAP PO SCH (08:01)
[2016-09-06] MEDS: POLYETHYLENE GLYCOL 3350 17 GM POWD.PACK PO SCH (08:01)
[2016-09-06] MEDS: METOPROLOL TARTRATE 25 MG TAB PO SCH ×2 (08:01→20:41)
[2016-09-06] MEDS: PANTOPRAZOLE 40 MG TABLET PO SCH (08:01)
[2016-09-06] MEDS: MEGESTROL 400 MG/10 ML CUP PO SCH (08:01)
[2016-09-06] MEDS: EZETIMIBE 10 MG TAB PO SCH (08:01)
[2016-09-06] MEDS: IPRATROPIUM-ALBUTEROL 3 ML NEB INHALATION SCH ×4 (08:11→20:18)
[2016-09-06] MEDS ORDERED: FUROSEMIDE 10 MG/ML 2 ML VIAL IV SCH (09:00)
--- NOTE | 2016-09-06 09:05 | P.PN ---
Subjective 80-year-old female being seen this morning on rounds. Is sitting up in bed significant more awake and alert feeding self. Will answer questions appropriately. Nursing reports patient was complaining of generalized pain yesterday was given a [place] last night for generalized body aches. Labs were reviewed this morning hemoglobin stable at 9.4 white count 6.3 CO2 40 currently nasal cannula at 2 L sats are 95-98% did note the recommendations by nephrology service patient reportedly had an episode of chest discomfort currently patient is denying chest pain when questioning per recommendations by nephrology patient currently is on Lasix 20 mg IV daily potassium 3.2 in which replacement is being given no other new events. Objective - Vital Signs Vital signs: Vital Signs Temp 97.5 F L 09/06/16 07:00 Pulse 63 09/06/16 07:00 Resp 20 09/06/16 07:00 BP 125/65 09/06/16 07:00 Pulse Ox 98 09/06/16 07:00 Intake & Output 09/05/16 09/06/16 09/06/16 18:59 06:59 18:59 Intake Total 120 Output Total 800 1750 Balance -800 -1750 120 Intake: Oral 120 Output: Urine 800 1750 Other: Voiding Method Indwelling Catheter Indwelling Catheter Indwelling Catheter # Voids 1 # Bowel Movements 0 0 - Exam Physical exam 80-year-old female sitting up in bed this morning is awake and is alert and is oriented times to place and self follow simple commands feeding self Lungs essentially clear with adequate air movement no wheezing no rhonchi no cough noted Heart S1-S2 audible denying chest pain Abdomen soft nontender not distended indwelling Pham catheter in place no documented bowel movements no nausea no vomiting Extremities no evidence of edema - Labs CBC & Chem 7: 09/06/16 07:00 09/06/16 07:00 Labs: Abnormal Lab Results - Last 24 Hours (Table) 09/05/16 09/05/16 09/06/16 Range/Units 17:34 20:07 07:00 RBC (3.80-5.40) m/uL Hgb (11.4-16.0) gm/dL Hct (34.0-46.0) % MCHC (31.0-37.0) g/dL RDW (11.5-15.5) % PT 12.5 H (9.0-12.0) sec Potassium (3.5-5.1) mmol/L Chloride (98-107) mmol/L Carbon Dioxide (22-30) mmol/L BUN (7-17) mg/dL POC Glucose (mg/dL) 113 H 142 H (75-99) mg/dL Total Protein (6.3-8.2) g/dL Albumin (3.5-5.0) g/dL 09/06/16 09/06/16 Range/Units 07:00 07:00 RBC 3.40 L (3.80-5.40) m/uL Hgb 9.4 L (11.4-16.0) gm/dL Hct 31.4 L (34.0-46.0) % MCHC 30.0 L (31.0-37.0) g/dL RDW 15.6 H (11.5-15.5) % PT (9.0-12.0) sec Potassium 3.2 L (3.5-5.1) mmol/L Chloride 95 L (98-107) mmol/L Carbon Dioxide 40 H* (22-30) mmol/L BUN 30 H (7-17) mg/dL POC Glucose (mg/dL) (75-99) mg/dL Total Protein 4.8 L (6.3-8.2) g/dL Albumin 2.5 L (3.5-5.0) g/dL Assessment and Plan Plan: Assessment and Plan Plan: #1 acute Non-ST segment elevation myocardial infarction. Evaluated by cardiology during this admission, no intervention recommended so far #2 acute blood loss anemia secondary to GI bleed. 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 She underwent cauterization of that area. Also there is grade B reflux esophagitis. Continue Protonix. Continue monitoring CBC. 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 Infectious diseases recommending cefazolin 2 g for 6 to 8 weeks weeks #4 UTI. Urine culture no growth #5 Acute exacerbation of diastolic congestive heart failure. Continue IV Lasix. currently pulmonary signed off on September 04 no further pulmonary recommendations #6 Hyperlipidemia. #7 Diabetes mellitus. Type II [id number] hemoglobin A1c 5.9 #8 essential Hypertension. #9 History of coronary artery disease with previous coronary artery bypass grafting. #10 Left upper extremity pain secondary to recent left humeral fracture. #11 Valvular heart disease with severe aortic stenosis, moderate to severe mitral regurgitation, moderate to severe pulmonary hypertension. #12 Acute kidney injury secondary to hypotension and hypoprofusion. Due to sepsis and anemia. Nephrology following. # 13 coagulopathy secondary to vitamin K deficiency due to poor oral intake. Patient evaluated by hematology. She did receive vitamin K. INR is 1.3. Continue to monitor PT/INRs #14 hypokalemia patient receiving potassium supplement persist #15 right sided pleural effusion status post thoracentesis #16 elevated CO2: Patient receiving Diamox. Acute on chronic hypercapnic respiratory failure Acute metabolic Encephalopathy GI prophylaxis IV Protonix. Continue SCDs Titrate the O2 down keep sats greater than 88% Valvular heart disease with severe aortic stenosis, moderate to severe mitral regurgitation, moderate to severe pulmonary hypertension Poor overall functional performance based on the above-mentioned multiple comorbidities The above dictated assessment and findings were discussed with dr virginia Faulkner and the plan of care have been dictated as directed. Karol Lemos nurse practitioner acting as a scribe for dr coleman
[2016-09-06] MEDS: POTASSIUM CHLORIDE ER 20 MEQ TAB.ER PO SCH ×2 (09:21→10:00)
[2016-09-06] MEDS: HYDROmorphone 1 MG/ML 1 ML SYRINGE IVP PRN ×2 (10:00→20:40)
[2016-09-06 12:16] LABS: Glucose,Whole Blood 122 mg/dL (75-99)
--- NOTE | 2016-09-06 14:23 | P.PN ---
Subjective Principal diagnosis: This is a 80-year-old female with acute kidney injury which resolved and is being followed up because of metabolic alkalosis and hypokalemia. She was admitted with chest pain had acute HI. Additionally she has bacteremia with staph aureus secondary to possibly left humerus osteomyelitis. She was on before meals to the lumbar dishes discontinued yesterday, and her Lasix was reduced to 20 mg IV daily She continues to feel unwell now complaining of abdominal discomfort. She says she has not had a bowel movement for 2 days. Currently on MiraLAX. Appetite is poor. Denies any chest pain or shoulder pain that she had yesterday. She is known with UTI, diabetes type 2, history of coronary artery bypass graft , severe aortic stenosis and pulmonary hypertension moderate. Objective - Vital Signs Vital signs: Vital Signs Temp 97.5 F L 09/06/16 07:00 Pulse 72 09/06/16 12:15 Resp 20 09/06/16 07:00 BP 125/65 09/06/16 07:00 Pulse Ox 98 09/06/16 07:00 Intake & Output 09/05/16 09/06/16 09/06/16 18:59 06:59 18:59 Intake Total 120 Output Total 800 1750 Balance -800 -1750 120 Intake: Oral 120 Output: Urine 800 1750 Other: Voiding Method Indwelling Catheter Indwelling Catheter Indwelling Catheter # Voids 1 # Bowel Movements 0 0 0 Examination she looks somewhat depressed anxious. HEENT exam no JVP neck is supple no facial asymmetry Lungs are clear to auscultation percussion fair air entry bilaterally Heart sounds are remarkable for grade 2 systolic ejection murmur with diminished carotid upstrokes suggestive of aortic stenosis. Abdomen is soft slightly protuberant and perhaps bloated. Minimally tender but generalized. No masses felt. - Labs CBC & Chem 7: 09/06/16 07:00 09/06/16 07:00 Labs: Abnormal Lab Results - Last 24 Hours (Table) 09/05/16 09/05/16 09/06/16 Range/Units 17:34 20:07 07:00 RBC (3.80-5.40) m/uL Hgb (11.4-16.0) gm/dL Hct (34.0-46.0) % MCHC (31.0-37.0) g/dL RDW (11.5-15.5) % PT 12.5 H (9.0-12.0) sec Potassium (3.5-5.1) mmol/L Chloride (98-107) mmol/L Carbon Dioxide (22-30) mmol/L BUN (7-17) mg/dL POC Glucose (mg/dL) 113 H 142 H (75-99) mg/dL Total Protein (6.3-8.2) g/dL Albumin (3.5-5.0) g/dL 09/06/16 09/06/16 09/06/16 Range/Units 07:00 07:00 12:00 RBC 3.40 L (3.80-5.40) m/uL Hgb 9.4 L (11.4-16.0) gm/dL Hct 31.4 L (34.0-46.0) % MCHC 30.0 L (31.0-37.0) g/dL RDW 15.6 H (11.5-15.5) % PT (9.0-12.0) sec Potassium 3.2 L (3.5-5.1) mmol/L Chloride 95 L (98-107) mmol/L Carbon Dioxide 40 H* (22-30) mmol/L BUN 30 H (7-17) mg/dL POC Glucose (mg/dL) 122 H (75-99) mg/dL Total Protein 4.8 L (6.3-8.2) g/dL Albumin 2.5 L (3.5-5.0) g/dL Assessment and Plan Plan: Impression. 1. Acute kidney injury from prerenal resolved. 2. Metabolic alkalosis from diuresis. Lasix dose has been reduced to 20 mg IV as of 09/05/2016 and acetazolamide was discontinued yesterday 09/05/2016 3. Hypokalemia secondary to diuretics. Potassium 3.2, she's received 80 mEq oral 4. Staph aureus bacteremia with osteitis left humerus. 5. Acute HI with history of coronary artery bypass graft. Chest pain free today. 6. Abdominal pain possibly constipation 7. Urinary retention requiring Pham catheter Recommendation. Maintain current medications. Watch bicarb. Continue IV Lasix 20 mg and Switched to by mouth Lasix 20 mg.
[2016-09-06 17:10] LABS: Glucose,Whole Blood 143 mg/dL (75-99)
[2016-09-06 20:29] LABS: Glucose,Whole Blood 123 mg/dL (75-99)
[2016-09-06] MEDS: DONEPEZIL 10 MG TAB PO SCH (20:41)
[2016-09-06] MEDS: MULTIVITAMINS, THERA 1 EACH TAB PO SCH (20:41)
[2016-09-06] MEDS: MELATONIN 5 MG TABLET PO SCH (20:41)
[2016-09-06] MEDS: SERTRALINE 100 MG TAB PO SCH (20:41)
[2016-09-06] MEDS: ATORVASTATIN 40 MG TAB PO SCH (20:41)
[2016-09-06] MEDS: FENOFIBRATE 160 MG TAB PO SCH (20:41)
[2016-09-06] MEDS: CHOLECALCIFEROL 1,000 UNIT TAB PO SCH (20:41)
[2016-09-06] MEDS: ONDANSETRON 4 MG/2 ML VIAL IVP PRN (20:42)
[2016-09-07] MEDS: HYDROmorphone 1 MG/ML 1 ML SYRINGE IVP PRN ×3 (00:58→12:55)
[2016-09-07 07:08] LABS: Basophils % (A) 0 %; CH 27.1; CHCM 29.4; Eosinophils # (A) 0.2 k/uL (0-0.7); Eosinophils % (A) 3 %; HCT 31.4 % (34.0-46.0); HDW 3.45; HGB 9.4 gm/dL (11.4-16.0); Hypochromasia Marked; Luc # (Auto) 0.12; Luc % (Auto) 2; Lymphocytes # (A) 1.1 k/uL (1.0-4.8); Lymphocytes % (A) 18 %; MCH 27.7 pg (25.0-35.0); MCHC 29.9 g/dL (31.0-37.0); MCV 92.6 fL (80.0-100.0); Mean Platelet Volume 7.1; Monocytes # (A) 0.5 k/uL (0-1.0); Monocytes % (A) 9 %; Neutrophils # (A) 4.1 k/uL (1.3-7.7); Neutrophils % (A) 69 %; Poikilocytosis Slight; RBC 3.39 m/uL (3.80-5.40); WBC (Perox) 6.36
[2016-09-07 07:24] LABS: Glucose,Whole Blood 100 mg/dL (75-99)
[2016-09-07] MEDS: INSULIN LISPRO (humaLOG) 300 UNIT/3 ML VIAL SQ SCH ×2 (07:30→12:35)
[2016-09-07 07:43] VITALS: RESP 18
[2016-09-07 07:47] LABS: INR 1.3 (<1.1); Prothrombin Time 13.1 sec (9.0-12.0)
[2016-09-07 07:51] LABS: ALT 18 U/L (9-52); AST 21 U/L (14-36); Alkaline Phosphatase 68 U/L (38-126); Anion Gap 6 mmol/L; Blood Urea Nitrogen 24 mg/dL (7-17); Calcium 8.9 mg/dL (8.4-10.2); Carbon Dioxide 38 mmol/L (22-30); Chloride 98 mmol/L (98-107); Glucose 86 mg/dL (74-99); Non-African American GFR(MDRD) 55 (>60 ml/min/1.73 sqM); Sodium 142 mmol/L (137-145); Total Bilirubin 0.4 mg/dL (0.2-1.3); Total Protein 5.2 g/dL (6.3-8.2)
[2016-09-07] MEDS: IPRATROPIUM-ALBUTEROL 3 ML NEB INHALATION SCH ×3 (08:09→15:39)
--- NOTE | 2016-09-07 08:20 | PN ---
DATE OF SERVICE: 09/06/2016 Reason for followup is MSSA bacteremia with left humerus osteomyelitis. INTERVAL HISTORY: The patient is afebrile. She is complaining of some epigastric discomfort, nausea but no vomiting. Denies any significant chest pain or shortness of breath. Does have some pain in the left shoulder area. On examination, blood pressure is 150/59 with a pulse of 78, temperature 98.5, she is 100% on 2 L nasal cannula. General description is an elderly female, lying in bed in no distress. RESPIRATORY SYSTEM: Unlabored breathing. Clear to auscultation anteriorly. HEART: S1, S2, regular rate and rhythm. ABDOMEN: Soft, slightly distended and tender in the epigastric area. LABS: Hemoglobin 9.4, white count 6.3 with a BUN of 30, creatinine 1.0. DIAGNOSTIC IMPRESSION AND PLAN: Patient with methicillin-susceptible Staphylococcus aureus bacteremia with left humerus osteomyelitis, patient currently on IV cefazolin tolerating it so far. Plan to continue with cefazolin for another 4 to 6 weeks with clinical response with close outpatient followup. Continue supportive care.
[2016-09-07] MEDS: MEGESTROL 400 MG/10 ML CUP PO SCH (08:25)
[2016-09-07] MEDS: METOPROLOL TARTRATE 25 MG TAB PO SCH (08:26)
[2016-09-07] MEDS: ceFAZolin 2 GM in SODIUM CHLORIDE 0.9% 100 ML IVPB SCH (08:26)
[2016-09-07] MEDS: HYDROcodone/APAP 10-325MG 1 EACH TAB PO PRN ×2 (08:26→17:16)
[2016-09-07] MEDS: EZETIMIBE 10 MG TAB PO SCH (08:26)
[2016-09-07] MEDS: ISOSORBIDE MONONITRATE ER 30 MG TAB.ER.24H PO SCH (08:26)
[2016-09-07] MEDS: PANTOPRAZOLE 40 MG TABLET PO SCH (08:26)
[2016-09-07] MEDS: DOCUSATE 100 MG CAP PO SCH (08:26)
[2016-09-07] MEDS: POLYETHYLENE GLYCOL 3350 17 GM POWD.PACK PO SCH (08:27)
[2016-09-07] MEDS ORDERED: FUROSEMIDE 20 MG TAB PO SCH (09:00)
[2016-09-07 12:06] LABS: Glucose,Whole Blood 91 mg/dL (75-99)
--- NOTE | 2016-09-07 14:41 | P.DS ---
Providers Date of admission: 08/13/16 04:51 Expected date of discharge: 09/07/16 Attending physician: Yuan Guthrie Consults: 08/13/16 04:53 Consult Physician Routine Consulting Provider: Majo Garcia Consult Reason/Comments: chf Do you want consulting provider notified?: Yes 08/13/16 10:51 Consult Physician Routine Consulting Provider: Rell Song Consult Reason/Comments: possible left humerus lytic lesion Do you want consulting provider notified?: Yes 08/13/16 13:12 Consult Physician Routine Consulting Provider: Wily Uribe Consult Reason/Comments: critical care Do you want consulting provider notified?: Yes 08/14/16 09:27 Consult Physician Routine Consulting Provider: Zahida Santana Consult Reason/Comments: ARF Do you want consulting provider notified?: Yes 08/15/16 15:39 Consult Physician Routine Consulting Provider: Taylor Mcknight Consult Reason/Comments: Positive blood cultures Do you want consulting provider notified?: Yes 09/02/16 11:02 Consult Physician Routine Consulting Provider: Ela Santiago Consult Reason/Comments: GI bleed Do you want consulting provider notified?: Already Contacted Primary care physician: Franca Irving Hospital Course: Discharge diagnosis #1 acute Non-ST segment elevation myocardial infarction. Evaluated by cardiology during this admission, no intervention recommended so far #2 acute blood loss anemia secondary to GI bleed. 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 She underwent cauterization of that area. Also there is a leg grade B reflux esophagitis. Continue Protonix. Continue monitoring CBC. Patient hemoglobin is down to 7.6. 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 Infectious diseases recommending cefazolin 2 g IV every 12 hours for 4 more weeks per infectious disease #4 UTI. Urine culture no growth #5 Acute exacerbation of diastolic congestive heart failure. Continue IV Lasix. Pulmonary following ordered chest ultrasound to review of possible thoracentesis needed #6 Hyperlipidemia. #7 Diabetes mellitus. #8 essential Hypertension. #9 History of coronary artery disease with previous coronary artery bypass grafting. #10 Left upper extremity pain secondary to recent left humeral fracture. #11 Valvular heart disease with severe aortic stenosis, moderate to severe mitral regurgitation, moderate to severe pulmonary hypertension. #12 Acute kidney injury secondary to hypotension and hypoprofusion. Due to sepsis and anemia. Nephrology following. # 13 coagulopathy secondary to vitamin K deficiency due to poor oral intake. Patient evaluated by hematology. She did receive vitamin K. INR is 1.5. Continue to monitor PT/INRs #14 hypokalemia patient receiving potassium supplement #15 right sided pleural effusion status post thoracentesis #16 elevated CO2: Patient had been given Diamox and Lasix dose decreased Hospital course This is a 80-year-old female, patient of [facility]. She has a known past medical history of myocardial infarction and three-vessel coronary artery bypass graft, coronary artery disease, hyperlipidemia, hypertension, diabetes, chronic kidney disease and dementia. Also history of anemia with recent EGD and May 2016 revealing gastritis colonoscopy was several years ago. She presents to the hospital with complaints of chest pain, abdominal pain , black stools with episodes of diarrhea. She's found have evidence of a non- ST elevated NH. Not able to be on aspirin or IV heparin at this time due to her significant anemia. Patient is found to have a UTI as well as positive blood cultures growing presumptive staph aureus. She currently on vancomycin and Rocephin. She still complaining of some abdominal pain. Patient required transfer to the ICU due to severe reaction during the blood transfusion. Also had evidence of hypotension had been on dopamine. Patient was seen evaluated by multiple consulting physicians was included cardiology, pulmonary for critical care, GI service, nephrology and infectious disease. Patient developed acute kidney injury due to hypoperfusion hypoperfusion as well as sepsis and anemia. Kidney functions have shown improvement and normalized. Initially we had to hold on MANSOOR inhibitor as well as aspirin, Plavix and IV heparin during her acute NH secondary to her anemia and acute kidney injury. As stated kidney functions did improve with IV fluid hydration. Patient would tolerate the 80s to be restarted. We'll continue to monitor kidney function closely outpatient. Patient's sepsis and bacteremia were secondary to the left humerus osteomyelitis. Blood culture were positive MSSA. Infectious diseases recommending ceftezole in 2 g IV every 12 hours for 4 more weeks. This will be given via PICC line. Patient underwent a CLARIBEL which was unremarkable. She had a biopsy obtained of that left humerus with no evidence of cancer. Patient had a prolonged complicated hospitalization. She required multiple blood transfusions. She eventually was able to tolerate an EGD. 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 She underwent cauterization of this area. We've been monitoring her hemoglobin. Hemoglobin at discharge is 9.4 patient is stable for discharge. Her overall condition is guarded. Would recommend monitoring CBC, BMP and PT/INR frequently. At this time we'll check them on Wednesday. Also patient was seen by hematology in regards to the elevated INR level which was likely related to vitamin K deficiency. She had received some vitamin K during this admission. INR is at 1.3 at time of discharge. Patient had also developed a right-sided pleural effusion and required a thoracentesis as well. Patient is stable for discharge. Please refer to chart for any further details. She'll be discharged to [facility] for further rehabilitation I performed an examination of the patient and discussed their management with the physician Manager Endoscopy. I have reviewed the Physician Manager Endoscopy's notes and agree with the documented findings and plan of care Patient Condition at Discharge: Stable Plan - Discharge Summary New Discharge Prescriptions: New ALPRAZolam [Xanax] 0.25 mg PO TID PRN #90 tab PRN Reason: Anxiety Atorvastatin [Lipitor] 40 mg PO HS tab ceFAZolin [Kefzol] 2 gm IV Q12HR #56 bag Docusate [Colace] 100 mg PO DAILY #0 cap Furosemide [Lasix] 20 mg PO DAILY tab HYDROcodone/APAP 10-325MG [[facility] 10-325] 1 each PO Q4H PRN #40 tab PRN Reason: Moderate Pain Isosorbide Mononitrate ER [Imdur] 30 mg PO DAILY tab Megestrol [Megace] 800 mg PO DAILY dose Metoprolol Tartrate [Lopressor] 25 mg PO BID tab Polyethylene Glycol 3350 [Miralax] 17 gm PO DAILY pack Continue Fenofibrate [Lofibra] 160 mg PO HS Donepezil [Aricept] 10 mg PO HS Pantoprazole Sodium [Protonix] 40 mg PO QAM Ascorbic Acid [Vitamin C] 500 mg PO HS Cetirizine HCl 10 mg PO DAILY PRN PRN Reason: Allergy Symptoms Cholecalciferol [Vitamin D3] 5,000 unit PO HS Multivitamins, Thera [Multivitamin (formulary)] 1 tab PO HS Sertraline [Zoloft] 100 mg PO HS Potassium Chloride ER [K-Dur 10] 10 meq PO HS Nitroglycerin Sl Tabs [Nitrostat] 0.4 mg SUBLINGUAL Q5M PRN PRN Reason: Chest Pain Lisinopril [Zestril] 5 mg PO DAILY #30 tab Ezetimibe [Zetia] 10 mg PO DAILY Discontinued Clopidogrel [Plavix] 75 mg PO DAILY Furosemide [Lasix] 40 mg PO DAILY Sennosides [Senna] 8.6 mg PO HS PRN PRN Reason: Constipation Metoprolol Tartrate [Lopressor] 25 mg PO HS Discharge Medication List Donepezil [Aricept] 10 mg PO HS 02/15/15 [History] Fenofibrate [Lofibra] 160 mg PO HS 02/15/15 [History] Pantoprazole Sodium [Protonix] 40 mg PO QAM 02/15/15 [History] Ascorbic Acid [Vitamin C] 500 mg PO HS 05/03/16 [History] Cetirizine HCl 10 mg PO DAILY PRN 05/03/16 [History] Cholecalciferol [Vitamin D3] 5,000 unit PO HS 05/03/16 [History] Multivitamins, Thera [Multivitamin (formulary)] 1 tab PO HS 05/03/16 [History] Potassium Chloride ER [K-Dur 10] 10 meq PO HS 05/03/16 [History] Sertraline [Zoloft] 100 mg PO HS 05/03/16 [History] Nitroglycerin Sl Tabs [Nitrostat] 0.4 mg SUBLINGUAL Q5M PRN 05/30/16 [History] Lisinopril [Zestril] 5 mg PO DAILY #30 tab 06/04/16 [Rx] Ezetimibe [Zetia] 10 mg PO DAILY 08/13/16 [History] ALPRAZolam [Xanax] 0.25 mg PO TID PRN #90 tab 09/07/16 [Rx] Atorvastatin [Lipitor] 40 mg PO HS tab 09/07/16 [Rx] Docusate [Colace] 100 mg PO DAILY #0 cap 09/07/16 [Rx] Furosemide [Lasix] 20 mg PO DAILY tab 09/07/16 [Rx] HYDROcodone/APAP 10-325MG [[facility] 10-325] 1 each PO Q4H PRN #40 tab 09/07/16 [Rx] Isosorbide Mononitrate ER [Imdur] 30 mg PO DAILY tab 09/07/16 [Rx] Megestrol [Megace] 800 mg PO DAILY dose 09/07/16 [Rx] Metoprolol Tartrate [Lopressor] 25 mg PO BID tab 09/07/16 [Rx] Polyethylene Glycol 3350 [Miralax] 17 gm PO DAILY pack 09/07/16 [Rx] ceFAZolin [Kefzol] 2 gm IV Q12HR #56 bag 09/07/16 [Rx] Follow up Appointment(s)/Referral(s): Franca Irving DO [Primary Care Provider] - 1 Week Taylor Mcknight MD [STAFF PHYSICIAN] - 1 Week Patient Instructions/Handouts: Myocardial Infarction (DC), Heart Failure (DC), Type 2 Diabetes in Adults (DC) Activity/Diet/Wound Care/Special Instructions: Cardiac diet. Activity as tolerated Discharge patient to [facility]. Dr. Guthrie to follow at [facility] Discharge Disposition: TRANSFER TO SNF/ECF
[2016-09-07 15:03] VITALS: BP 135/61; TEMP 98
[2016-09-07 15:41] VITALS: PULSE 80
--- NOTE | 2016-09-07 19:46 | PN ---
DATE OF SERVICE: 09/07/2016 REASON FOR FOLLOWUP: MSSA bacteremia with left humerus osteomyelitis. INTERVAL HISTORY: The patient is afebrile. Has been complaining of some dry hacky cough. Unable to bring up sputum. No chest pain. Breathing is baseline. Denies worsening abdominal pain. On examination, blood pressure 132/61, pulse 75, temperature 97.9, afebrile. GENERAL DESCRIPTION: Elderly female, lying in bed, in no distress. RESPIRATORY: Unlabored breathing. LUNGS: Clear to auscultation. HEART: S1 and S2 irregular rate and rhythm. ABDOMEN: Soft. Mildly distended. LABS: Hemoglobin 11.4, white count 6.0, BUN 24, creatinine 0.097. DIAGNOSTIC IMPRESSION: MSSA bacteremia, source is left humerus osteomyelitis. The patient is currently on cefazolin 2 gram ( ). Continue for another 4 to 6 weeks depending on ( ). Care discussed with primary team.
== END 2016-09-07 17:21 | DRG 853 ==
LOC: EC 02:54 → 6SEL 04:51 → 6ICU 08-14 13:44 → 4MS4W 08-17 19:47 → 6SEL 08-19 18:42 → 6ICU 08-21 11:34 → 6SEL 08-22 19:28 → 4MS4W 08-24 14:13
PROVIDERS: ADMIT Internal Medicine; ATTEND Internal Medicine
PROC: 30233N1 Transfusion of Nonautologous Red Blood Cells into Peripheral Vein, Percutaneous Approach (ICD-10-PCS; 2016-08-14)
PROC: 02HV33Z Insertion of Infusion Device into Superior Vena Cava, Percutaneous Approach (ICD-10-PCS; 2016-08-25 12:00)
PROC: 0P9 Upper Bones, Drainage (ICD-10-PCS; principal; 2016-08-26)
PROC: B246ZZ4 Ultrasonography of Right and Left Heart, Transesophageal (ICD-10-PCS; 2016-08-26)
PROC: 0W993ZX Drainage of Right Pleural Cavity, Percutaneous Approach, Diagnostic (ICD-10-PCS; 2016-08-28)
PROC: 0D598ZZ Destruction of Duodenum, Via Natural or Artificial Opening Endoscopic (ICD-10-PCS; 2016-09-03)
DX: A41.01 Sepsis due to Methicillin susceptible Staphylococcus aureus (principal); I21.4 Non-ST elevation (NSTEMI) myocardial infarction; N17.0 Acute kidney failure with tubular necrosis; I50.33 Acute on chronic diastolic (congestive) heart failure; J90 Pleural effusion, not elsewhere classified; R18.8 Other ascites; E87.0 Hyperosmolality and hypernatremia; D62 Acute posthemorrhagic anemia; N18.3 Chronic kidney disease, stage 3 (moderate); E87.4 Mixed disorder of acid-base balance; I13.0 Hypertensive heart and chronic kidney disease with heart failure and stage 1 through stage 4 chronic kidney disease, or unspecified chronic kidney disease; J98.11 Atelectasis; M86.9 Osteomyelitis, unspecified; N39.0 Urinary tract infection, site not specified; M84.422A Pathological fracture, left humerus, initial encounter for fracture; E11.22 Type 2 diabetes mellitus with diabetic chronic kidney disease; E11.69 Type 2 diabetes mellitus with other specified complication; I27.2 Other secondary pulmonary hypertension; R13.10 Dysphagia, unspecified; I08.3 Combined rheumatic disorders of mitral, aortic and tricuspid valves; F03.90 Unspecified dementia, unspecified severity, without behavioral disturbance, psychotic disturbance, mood disturbance, and anxiety; I99.8 Other disorder of circulatory system; E56.1 Deficiency of vitamin K; E66.9 Obesity, unspecified; E78.5 Hyperlipidemia, unspecified; E87.6 Hypokalemia; F32.9 Major depressive disorder, single episode, unspecified; F41.9 Anxiety disorder, unspecified; I25.10 Atherosclerotic heart disease of native coronary artery without angina pectoris; I25.2 Old myocardial infarction; I45.10 Unspecified right bundle-branch block; K21.0 Gastro-esophageal reflux disease with esophagitis; K59.00 Constipation, unspecified; M19.90 Unspecified osteoarthritis, unspecified site; R65.20 Severe sepsis without septic shock; T50.2X5A Adverse effect of carbonic-anhydrase inhibitors, benzothiadiazides and other diuretics, initial encounter; T80.92XA Unspecified transfusion reaction, initial encounter; G89.29 Other chronic pain; R19.7 Diarrhea, unspecified; M25.512 Pain in left shoulder; M25.552 Pain in left hip; D50.9 Iron deficiency anemia, unspecified; R79.1 Abnormal coagulation profile; Y84.8 Other medical procedures as the cause of abnormal reaction of the patient, or of later complication, without mention of misadventure at the time of the procedure; Z79.02 Long term (current) use of antithrombotics/antiplatelets; Z79.899 Other long term (current) drug therapy; Z91.81 History of falling; Z95.1 Presence of aortocoronary bypass graft
CPT/HCPCS: 20220; 36415; 36569; 36600; 43270; 71010; 71020; 74176; 76000; 76604; 76937; 77001; 80048; 80053; 80202; 81001; 82150; 82272; 82550; 82553; 82607; 82728; 82747; 82805; 83036; 83540; 83550; 83605; 83615; 83690; 83735; 83880; 83883; 84100; 84157; 84165; 84484; 85025; 85027; 85045; 85610; 85652; 85730; 86334; 86850; 86880; 86900; 86901; 86920; 87040; 87070; 87075; 87077; 87086; 87186; 87205; 88108; 88173; 88305; 88341; 88342; 93005; 93306; 93312; 93320; 93325; 94640; 94760; 96365; 96366; 96375; 99285

== ENCOUNTER 2016-09-13 15:25 | Inpatient (IN) | payer MEDICARE, OTHER ==
--- NOTE | 2016-09-13 16:12 | ED ---
General Adult HPI - General Chief complaint: Upper Respiratory Infection Stated complaint: POSS PNEUMONIA Time Seen by Provider: 09/13/16 15:38 Source: patient Mode of arrival: ambulatory Limitations: no limitations - History of Present Illness Initial comments: Dr. Dumont called from [facility] requesting the the transfer to [facility], earlier in the month the patient was admitted to our hospital and she was inpatient for a few weeks she was discharged tomorrow Menjivar and a she had a trouble breathing she ended up in [facility] where they diagnosed her with this CSF, pneumonia, UTI, respiratory distress she was also on a BiPAP for a short time and a she wanted to come to [facility]. Arrival she still short winded but not as bad as she was there still complaining about some chest pain with deep breaths some swelling of the feet a lot of congestion in the chest. Had a fever and chills - Related Data Home Medications Medication Instructions Recorded Confirmed Fenofibrate [Lofibra] 160 mg PO HS 02/15/15 08/13/16 Pantoprazole Sodium [Protonix] 40 mg PO DAILY 02/15/15 08/13/16 Ascorbic Acid [Vitamin C] 500 mg PO HS 05/03/16 08/13/16 Cetirizine HCl 10 mg PO DAILY PRN 05/03/16 08/13/16 Cholecalciferol [Vitamin D3] 5,000 unit PO HS 05/03/16 08/13/16 Multivitamins, Thera [Multivitamin 1 tab PO HS 05/03/16 08/13/16 (formulary)] Potassium Chloride ER [K-Dur 10] 10 meq PO HS 05/03/16 08/13/16 Sertraline [Zoloft] 100 mg PO HS 05/03/16 08/13/16 Nitroglycerin Sl Tabs [Nitrostat] 0.4 mg SUBLINGUAL Q5M PRN 05/30/16 08/13/16 Ezetimibe [Zetia] 10 mg PO DAILY 08/13/16 08/13/16 ALPRAZolam [Xanax] 0.25 mg PO TID PRN 09/13/16 09/13/16 Bisacodyl [Dulcolax] 10 mg RECTAL DAILY PRN 09/13/16 09/13/16 Hydrocodone/Acetaminophen [[place] 1 tab PO Q4H PRN 09/13/16 09/13/16 10-325 Tablet] INSULIN LISPRO (humaLOG) [HumaLOG] See Protocol SQ ACHS 09/13/16 09/13/16 Magnesium Hydroxide [Milk of 2,400 mg PO DAILY PRN 09/13/16 09/13/16 Magnesia] Metoprolol Tartrate [Lopressor] 25 mg PO BID@0800,209909/13/16 09/13/16 Na Phos,M-B/Na Phos,Di-Ba [Fleet 133 ml RECTAL DAILY PRN 09/13/16 09/13/16 Adult] ceFAZolin [Kefzol] 2,000 mg IV BID@0800,209909/13/16 09/13/16 Previous Rx's Medication Instructions Recorded Lisinopril [Zestril] 5 mg PO DAILY #30 tab 06/04/16 Atorvastatin [Lipitor] 40 mg PO HS tab 09/07/16 Docusate [Colace] 100 mg PO DAILY #0 cap 09/07/16 Furosemide [Lasix] 20 mg PO DAILY tab 09/07/16 Isosorbide Mononitrate ER [Imdur] 30 mg PO DAILY tab 09/07/16 Megestrol [Megace] 800 mg PO DAILY dose 09/07/16 Polyethylene Glycol 3350 [Miralax] 17 gm PO DAILY pack 09/07/16 Allergies Allergy/AdvReac Type Severity Reaction Status Date / Time No Known Allergies Allergy Verified 09/13/16 16:02 Review of Systems ROS Statement: Those systems with pertinent positive or pertinent negative responses have been documented in the HPI. ROS Other: All systems not noted in ROS Statement are negative. Past Medical History Past Medical History: Coronary Artery Disease (CAD), Diabetes Mellitus, GERD/ Reflux, Hyperlipidemia, Hypertension, Liver Disease, Myocardial Infarction ([place]) , Osteoarthritis (OA) Additional Past Medical History / Comment(s): Coronary artery disease, hypertension, diabetes mellitus, hyperlipidemia, recent fall following an episode of syncope during which the patient sustained a left humeral fracture, episodes of dysphagia, chronic anemia, history of small bowel obstruction related to a ultimately turned out to be benign and was resected, chronic renal failure with stage III kidney disease, CHF with diastolic dysfunction with an ejection fraction of 55-60% based on previous echocardiogram along with aortic stenosis, previous carotid bypass surgery, osteoarthritis Last Myocardial Infarction Date:: 2009 History of Any Multi-Drug Resistant Organisms: None Reported Past Surgical History: Adenoidectomy, Cholecystectomy, Coronary Bypass/CABG, Heart Catheterization, Tonsillectomy, Tubal Ligation Additional Past Surgical History / Comment(s): 2010 Cabg in [place], 04/16/10 colonoscopy with benign polypectomy, liver surgery-unkn what type, cataract removal bilaterally. Past Anesthesia/Blood Transfusion Reactions: Postoperative Nausea & Vomiting ( PONV) Past Psychological History: Depression Additional Psychological History / Comment(s): Pt has history of depression but states that was in the past and no longer an issue for her. She is . She lives alone. She uses a walker to ambulate. She does not drive-her family take her places. Patient states no changes to Smoking Status: Never smoker Past Alcohol Use History: None Reported Past Drug Use History: None Reported - Past Family History Father Family Medical History: Diabetes Mellitus Additional Family Medical History / Comment(s): Pt believes her father was diabetic. He had toes amputated. He in his 90s Mother Family Medical History: Unable to Obtain Additional Family Medical History / Comment(s): Pt knows that her mother was unhealthy but does not know what health problems she might have had. she at 87yrs. General Exam - General Exam Comments Initial Comments: General: The patient is awake and alert, in no distress, and does not appear acutely ill. GCS is 15 Skin: Skin is warm and dry and no rashes or lesions are noted. Looks quite pale Eye: Pupils are equal, round and reactive to light, extra-ocular movements are intact; there is normal conjunctiva bilaterally. Ears, nose, mouth and throat: There are moist mucous membranes and no oral lesions. Neck: The neck is supple, there is no tenderness . Cardiovascular: There is a regular rate and rhythm. No murmur, rub or gallop is appreciated. Respiratory: To auscultation bilateral, noticed crackles at the bottom of the both lungs Gastrointestinal: Soft, non-distended, non-tender abdomen without masses or organomegaly noted. There is no rebound or guarding present. Bowel sounds are unremarkable. Back: There is no tenderness to palpation in the midline. There is no obvious deformity. Musculoskeletal: Normal ROM, no tenderness, There is no pedal edema. There is no calf tenderness or swelling. No cords were appreciated. Neurological: CN II-XII intact, Cranial nerves III through XII are intact. There are no obvious motor or sensory deficits. Coordination appears grossly intact. Speech is normal. Psychiatric: Cooperative, appropriate mood & affect, normal judgment. Limitations: no limitations Course Vital Signs 09/13/16 15:45 Temperature 99.6 F Pulse Rate 77 Respiratory 18 Rate Blood Pressure 144/73 O2 Sat by Pulse 96 Oximetry Disposition Clinical Impression: Congestive heart failure, Pneumonia, Acute lower UTI, Respiratory distress Disposition: ADMITTED IP TO THIS HOSP Condition: Good Referrals: Franca Irving DO [Primary Care Provider] - 1-2 days
[2016-09-13] MEDS ORDERED: ACETAMINOPHEN TAB 325 MG TAB PO PRN (16:13)
[2016-09-13] MEDS ORDERED: NALOXONE 0.4 MG/ML 1 ML VIAL IV PRN (16:13)
[2016-09-13] MEDS ORDERED: MAGNESIUM HYDROXIDE 2,400 MG/10 ML CUP PO PRN (16:24)
[2016-09-13] MEDS ORDERED: NITROGLYCERIN SL TABS 0.4 MG TAB SUBLINGUAL PRN (16:24)
[2016-09-13] MEDS ORDERED: LORATADINE 10 MG TAB PO PRN (16:24)
[2016-09-13] MEDS: SODIUM CHLORIDE 0.9% 1,000 ML IV SCH (17:14)
[2016-09-13] MEDS ORDERED: VANCOMYCIN 1,500 MG in SODIUM CHLORIDE 0.9% 250 ML IVPB SCH (17:15)
[2016-09-13 17:24] LABS: Glucose,Whole Blood 183 mg/dL (75-99)
[2016-09-13 17:48] LABS: Basophils % (A) 0 %; CH 26.9; CHCM 29.6; Eosinophils % (A) 0 %; HCT 32.1 % (34.0-46.0); HDW 3.08; HGB 9.6 gm/dL (11.4-16.0); Hypochromasia Marked; Luc # (Auto) 0.05; Luc % (Auto) 1; Lymphocytes # (A) 0.5 k/uL (1.0-4.8); Lymphocytes % (A) 5 %; MCH 27.2 pg (25.0-35.0); MCHC 29.8 g/dL (31.0-37.0); MCV 91.1 fL (80.0-100.0); Mean Platelet Volume 7.2; Monocytes # (A) 0.2 k/uL (0-1.0); Monocytes % (A) 2 %; Neutrophils # (A) 8.7 k/uL (1.3-7.7); Neutrophils % (A) 93 %; RBC 3.52 m/uL (3.80-5.40); RDW 14.6 % (11.5-15.5); WBC 9.4 k/uL (3.8-10.6); WBC (Perox) 9.83
[2016-09-13 17:58] LABS: Anion Gap 10 mmol/L; Blood Urea Nitrogen 20 mg/dL (7-17); Calcium 9.1 mg/dL (8.4-10.2); Carbon Dioxide 29 mmol/L (22-30); Chloride 100 mmol/L (98-107); Glucose 158 mg/dL (74-99); Magnesium 1.8 mg/dL (1.6-2.3); Non-African American GFR(MDRD) >60 (>60 ml/min/1.73 sqM); Phosphorous 3.7 mg/dL (2.5-4.5); Potassium 4.4 mmol/L (3.5-5.1); Sodium 139 mmol/L (137-145)
[2016-09-13 18:05] VITALS: BMI 28.8
[2016-09-13] MEDS ORDERED: Magnesium Replacement Protocol 1 EACH MISC MISCELLANE PRN (18:13)
--- NOTE | 2016-09-13 18:18 | XR ---
EXAMINATION TYPE: XR chest 1V portable DATE OF EXAM: 09/13/2016 COMPARISON: 08/31/2016 HISTORY: Short of breath TECHNIQUE: Single frontal view of the chest is obtained. FINDINGS: Heart is enlarged. There is pulmonary edema. There is blunting of costophrenic angles and more on the left side. There are sternal wires. IMPRESSION: Congestive heart failure with pulmonary edema and pleural effusions. Pleural fluid is in creased on the right side and unchanged on the left side compared to old exam.
[2016-09-13] MEDS: MAGNESIUM SULFATE-D5W PMX 1 GM in DEXTROSE/WATER 1 100ML.BAG IVPB SCH ×2 (18:25→20:29)
[2016-09-13 18:56] LABS: INR 1.3 (<1.1); Prothrombin Time 12.9 sec (9.0-12.0)
[2016-09-13] MEDS: HYDROcodone/APAP 10-325MG 1 EACH TAB PO PRN (20:29)
[2016-09-13] MEDS: ATORVASTATIN 40 MG TAB PO SCH (20:30)
[2016-09-13] MEDS: METOPROLOL TARTRATE 25 MG TAB PO SCH (20:30)
[2016-09-13] MEDS: CHOLECALCIFEROL 1,000 UNIT TAB PO SCH (20:30)
[2016-09-13] MEDS: ASCORBIC ACID 500 MG TAB PO SCH (20:30)
[2016-09-13] MEDS: SERTRALINE 100 MG TAB PO SCH (20:31)
[2016-09-13] MEDS: POTASSIUM CHLORIDE ER 10 MEQ TAB.ER.PRT PO SCH (20:31)
[2016-09-13] MEDS: MULTIVITAMINS, THERA 1 EACH TAB PO SCH (20:31)
[2016-09-13] MEDS ORDERED: FENOFIBRATE 160 MG TAB PO SCH (21:00)
[2016-09-13] MEDS: MORPHINE SULFATE 2 MG/ML SYRINGE IV PRN (23:19)
[2016-09-14] MEDS: PIPERACILLIN-TAZOBACTAM 3.375 GM in DEXTROSE/WATER 1 50ML.BAG IVPB SCH ×4 (01:29→23:33)
[2016-09-14 01:37] LABS: Glucose,Whole Blood 126 mg/dL (75-99)
[2016-09-14] MEDS: MORPHINE SULFATE 2 MG/ML SYRINGE IV PRN ×7 (02:18→23:18)
[2016-09-14 05:10] LABS: Basophils % (A) 0 %; CH 27.1; CHCM 31.3; Eosinophils # (A) 0.1 k/uL (0-0.7); Eosinophils % (A) 1 %; HCT 34.2 % (34.0-46.0); HDW 3.22; HGB 10.8 gm/dL (11.4-16.0); Hypochromasia Moderate; Luc # (Auto) 0.12; Luc % (Auto) 1; Lymphocytes # (A) 1.1 k/uL (1.0-4.8); Lymphocytes % (A) 12 %; MCH 27.3 pg (25.0-35.0); MCHC 31.5 g/dL (31.0-37.0); MCV 86.8 fL (80.0-100.0); Monocytes # (A) 0.6 k/uL (0-1.0); Monocytes % (A) 6 %; Neutrophils # (A) 7.6 k/uL (1.3-7.7); Neutrophils % (A) 80 %; RBC 3.94 m/uL (3.80-5.40); RDW 14.5 % (11.5-15.5); WBC 9.5 k/uL (3.8-10.6); WBC (Perox) 10.68
[2016-09-14 05:39] LABS: ALT 17 U/L (9-52); AST 26 U/L (14-36); Alkaline Phosphatase 68 U/L (38-126); Anion Gap 10 mmol/L; Blood Urea Nitrogen 22 mg/dL (7-17); Calcium 9.3 mg/dL (8.4-10.2); Carbon Dioxide 30 mmol/L (22-30); Chloride 101 mmol/L (98-107); Glucose 102 mg/dL (74-99); Magnesium 2.5 mg/dL (1.6-2.3); Non-African American GFR(MDRD) >60 (>60 ml/min/1.73 sqM); Potassium 4.6 mmol/L (3.5-5.1); Sodium 141 mmol/L (137-145); Total Bilirubin 0.4 mg/dL (0.2-1.3); Total Protein 5.5 g/dL (6.3-8.2)
[2016-09-14] MEDS: HYDROcodone/APAP 10-325MG 1 EACH TAB PO PRN ×4 (06:33→21:50)
--- NOTE | 2016-09-14 07:44 | XR ---
EXAMINATION TYPE: XR chest 1V portable DATE OF EXAM: 09/14/2016 COMPARISON: 09/13/2016 INDICATION: Short of breath TECHNIQUE: Single frontal view of the chest is obtained. FINDINGS: The heart size is enlarged. The pulmonary vasculature is normal. Right lower lobe infiltrate is present. Small right pleural effusion may be present. Moderate left pl eural effusion is present. PICC line enters on the right with the tip in the proximal superior vena cava region. Sternotomy wires are present. Findings are similar to 09/13/2016. IMPRESSION: 1. Moderate left and small right pleural effusion. 2. Mild opacity over the right lower lung field. Infiltrate and pleural effusion could be considered.
[2016-09-14] MEDS: METOPROLOL TARTRATE 25 MG TAB PO SCH ×2 (08:30→20:10)
[2016-09-14] MEDS: FUROSEMIDE 20 MG TAB PO SCH ×2 (08:31→10:24)
[2016-09-14] MEDS: EZETIMIBE 10 MG TAB PO SCH (08:31)
[2016-09-14] MEDS: DOCUSATE 100 MG CAP PO SCH (08:31)
[2016-09-14] MEDS: POLYETHYLENE GLYCOL 3350 17 GM POWD.PACK PO SCH (08:32)
[2016-09-14] MEDS: PANTOPRAZOLE 40 MG TABLET PO SCH (08:32)
[2016-09-14] MEDS: MEGESTROL 400 MG/10 ML CUP PO SCH (08:32)
[2016-09-14] MEDS: LISINOPRIL 5 MG TAB PO SCH (08:32)
[2016-09-14] MEDS: ISOSORBIDE MONONITRATE ER 30 MG TAB.ER.24H PO SCH (08:32)
[2016-09-14] MEDS ORDERED: FUROSEMIDE 10 MG/ML 2 ML VIAL IV SCH (09:30)
--- NOTE | 2016-09-14 10:43 | P.HPIM ---
History of Present Illness H&P Date: 09/14/16 Chief Complaint: Cough after choking on a piece of toast This is a 80-year-old female, patient of Dr. Fuentes. She was recently discharged from [facility] and 09/07/2016 after prolonged hospitalization to [facility]. At that time she had been evaluated for an acute non-ST elevated [place], acute GI bleed secondary to a 1 cm bleedingangiectasia in the second part of the duodenum that had required cauterization. And there is also evidence of esophagitis. She also was treated for sepsis and bacteremia with MSSA likely secondary to the left humerus osteomyelitis. She had been on IV ceftezole and and she was requiring that for 4 more weeks outpatient. She also had evidence of an acute diastolic CHF exacerbation. She also has a history of hyperlipidemia, hypertension, diabetes mellitus, coronary artery disease with previous coronary bypass grafting, and severe aortic stenosis. Patient initially presented to [facility] after choking on a piece of toast yesterday morning at [facility]. Patient continued to cough and had shortness of breath. Due to her recent hospitalization and extensive hospitalization at [facility]. Patient was transferred from [facility] yesterday. Patient was admitted to the ICU. She is currently stable. She does complain of pain in her shoulder chest and abdomen. These have been chronic pains for the patient. The troponin checked was at 0.094. Chest x-ray showing moderate left and small right pleural effusion. Mild opacity over the right lung field. Infiltrate and pleural effusion could be considered. Patient was started on IV Zosyn for possible aspiration pneumonia. Pulmonary and cardiology have been consulted. Initial chest x-ray had shown concerns about congestive heart failure. She was started on Lasix 40 mg IV every 12 hours. Patient still reports a poor appetite at times. But does appear to have improved since during her hospitalization. She denies any nausea or vomiting. Reports having formed normal stools. Last bowel movement yesterday. Denies any burning with urination. Review of Systems Please refer to HPI otherwise unremarkable Past Medical History Past Medical History: Coronary Artery Disease (CAD), Diabetes Mellitus, GERD/ Reflux, Hyperlipidemia, Hypertension, Liver Disease, Myocardial Infarction ([place]) , Osteoarthritis (OA) Additional Past Medical History / Comment(s): Coronary artery disease, hypertension, diabetes mellitus, hyperlipidemia, recent fall following an episode of syncope during which the patient sustained a left humeral fracture, episodes of dysphagia, chronic anemia, history of small bowel obstruction related to a ultimately turned out to be benign and was resected, chronic renal failure with stage III kidney disease, CHF with diastolic dysfunction with an ejection fraction of 55-60% based on previous echocardiogram along with aortic stenosis, previous carotid bypass surgery, osteoarthritis Last Myocardial Infarction Date:: 2009 History of Any Multi-Drug Resistant Organisms: None Reported Past Surgical History: Adenoidectomy, Cholecystectomy, Coronary Bypass/CABG, Heart Catheterization, Tonsillectomy, Tubal Ligation Additional Past Surgical History / Comment(s): 2009 Cabg in [place], 04/16/10 colonoscopy with benign polypectomy, liver surgery-unkn what type, cataract removal bilaterally. Past Anesthesia/Blood Transfusion Reactions: Postoperative Nausea & Vomiting ( PONV) Past Psychological History: Depression Additional Psychological History / Comment(s): Pt has history of depression but states that was in the past and no longer an issue for her. She is . She lives alone. She uses a walker to ambulate. She does not drive-her family take her places. Patient states no changes to Smoking Status: Never smoker Past Alcohol Use History: None Reported Past Drug Use History: None Reported - Past Family History Father Family Medical History: Diabetes Mellitus Additional Family Medical History / Comment(s): Pt believes her father was diabetic. He had toes amputated. He in his 90s Mother Family Medical History: Unable to Obtain Additional Family Medical History / Comment(s): Pt knows that her mother was unhealthy but does not know what health problems she might have had. she at 87yrs. Medications and Allergies Home Medications Medication Instructions Recorded Confirmed Type Fenofibrate [Lofibra] 160 mg PO HS 02/15/15 09/13/16 History Pantoprazole Sodium [Protonix] 40 mg PO DAILY 02/15/15 09/13/16 History Ascorbic Acid [Vitamin C] 500 mg PO HS 05/03/16 09/13/16 History Cetirizine HCl 10 mg PO DAILY PRN 05/03/16 09/13/16 History Cholecalciferol [Vitamin D3] 5,000 unit PO HS 05/03/16 09/13/16 History Multivitamins, Thera [Multivitamin 1 tab PO HS 05/03/16 09/13/16 History (formulary)] Potassium Chloride ER [K-Dur 10] 10 meq PO HS 05/03/16 09/13/16 History Sertraline [Zoloft] 100 mg PO HS 05/03/16 09/13/16 History Nitroglycerin Sl Tabs [Nitrostat] 0.4 mg SUBLINGUAL Q5M PRN 05/30/16 09/13/16 History Ezetimibe [Zetia] 10 mg PO DAILY 08/13/16 09/13/16 History ALPRAZolam [Xanax] 0.25 mg PO TID PRN 09/13/16 09/13/16 History Bisacodyl [Dulcolax] 10 mg RECTAL DAILY PRN 09/13/16 09/13/16 History Hydrocodone/Acetaminophen [[place] 1 tab PO Q4H PRN 09/13/16 09/13/16 History 10-325 Tablet] INSULIN LISPRO (humaLOG) [HumaLOG] See Protocol SQ ACHS 09/13/16 09/13/16 History Magnesium Hydroxide [Milk of 2,400 mg PO DAILY PRN 09/13/16 09/13/16 History Magnesia] Metoprolol Tartrate [Lopressor] 25 mg PO BID@0800,2100 09/13/16 09/13/16 History Na Phos,M-B/Na Phos,Di-Ba [Fleet 133 ml RECTAL DAILY PRN 09/13/16 09/13/16 History Adult] ceFAZolin [Kefzol] 2,000 mg IV BID@0800,2100 09/13/16 09/13/16 History Allergies Allergy/AdvReac Type Severity Reaction Status Date / Time No Known Allergies Allergy Verified 09/13/16 16:02 Physical Exam Vitals: Vital Signs Temp Pulse Pulse Resp BP BP Pulse Ox 09/14/16 10:00 67 29 H 152/79 99 09/14/16 09:00 67 16 155/75 97 09/14/16 08:00 97.7 F 66 12 167/81 100 09/14/16 07:29 77 36 H 167/81 100 09/14/16 07:28 111 H 34 H 167/81 100 09/14/16 07:27 74 48 H 167/81 99 09/14/16 07:26 69 34 H 167/81 100 09/14/16 07:25 80 33 H 174/95 100 09/14/16 07:24 65 17 174/95 100 09/14/16 07:23 72 15 174/95 100 09/14/16 07:22 67 14 174/95 100 09/14/16 07:21 58 L 13 174/95 09/14/16 07:20 64 17 174/95 99 09/14/16 07:19 82 13 174/95 100 09/14/16 07:18 67 15 174/95 100 09/14/16 07:17 67 12 174/95 09/14/16 07:16 69 16 174/95 100 09/14/16 07:15 67 12 174/95 09/14/16 07:14 66 14 174/95 09/14/16 07:13 69 18 174/95 09/14/16 07:12 72 13 174/95 09/14/16 07:11 71 12 174/95 100 09/14/16 07:10 65 12 174/95 09/14/16 07:09 65 19 174/95 100 09/14/16 07:08 65 12 174/95 09/14/16 07:07 66 14 174/95 09/14/16 07:06 69 25 H 174/95 100 09/14/16 07:05 66 12 174/95 09/14/16 07:00 69 14 174/95 09/14/16 06:30 66 24 171/109 100 09/14/16 06:00 66 15 184/67 100 09/14/16 05:30 70 18 184/67 09/14/16 05:00 70 20 163/70 09/14/16 04:30 72 21 163/70 09/14/16 04:00 98.0 F 67 27 H 165/75 09/14/16 03:30 66 22 165/75 09/14/16 03:00 67 23 157/77 09/14/16 02:30 68 17 157/77 09/14/16 02:00 71 20 165/70 09/14/16 01:30 67 25 H 165/70 09/14/16 01:00 67 25 H 166/68 09/14/16 00:30 68 18 166/68 09/14/16 00:00 98.2 F 65 25 H 149/68 100 09/13/16 23:30 66 14 149/68 100 09/13/16 23:18 70 48 H 177/90 100 09/13/16 23:00 68 15 177/90 100 09/13/16 22:30 71 15 177/90 100 09/13/16 22:00 75 23 168/82 90 L 09/13/16 21:30 82 23 168/82 92 L 09/13/16 21:00 85 24 168/67 93 L 09/13/16 20:30 86 24 168/67 93 L 09/13/16 20:28 93 L 09/13/16 20:00 98.6 F 82 18 170/67 91 L 09/13/16 19:30 82 18 170/67 90 L 09/13/16 19:00 78 24 170/77 93 L 09/13/16 18:30 75 16 170/77 93 L 09/13/16 18:00 77 20 164/71 92 L 09/13/16 17:50 78 20 164/71 94 L 09/13/16 17:40 74 14 164/71 95 09/13/16 17:30 78 14 164/71 95 09/13/16 17:24 98.5 F 79 14 88 L 09/13/16 16:59 98 F 78 20 142/78 97 09/13/16 16:45 78 20 159/72 97 09/13/16 16:35 97.5 F L 78 14 164/71 94 L 09/13/16 15:45 99.6 F 77 18 144/73 96 Intake and Output 09/13/16 09/14/16 09/14/16 22:59 06:59 14:59 Intake Total 260 130.0 130 Output Total 601 281 86 Balance -341 -151.0 44 Intake: IV 240 130.0 130 Magnesium Sulfate-D5w Pmx 200 1 gm In Dextrose/Water 1 100ml.bag @ 100 mls/hr IVPB Q1H [facility] Rx#: [id number] Piperacillin-Tazobactam 3 50.0 50 .375 gm In Dextrose/Water 1 50ml.bag @ 12.5 mls/hr IVPB Q8HR [facility] Rx#: [id number] Sodium Chloride 0.9% 1, 40 80 80 000 ml @ 20 mls/hr IV . Q24H [facility] Rx#:[id number] Intake, IV Titration 20 Amount Sodium Chloride 0.9% 1, 20 000 ml @ 20 mls/hr IV . Q24H [facility]BA Rx#:[id number] Output: Urine 601 281 86 Other: Voiding Method Indwelling Catheter Indwelling Catheter Weight 71.6 kg 72.8 kg Head normocephalic Neck supple Lungs clear to auscultation bilaterally no wheezing or crackles Heart regular rate and rhythm S1-S2, no rub or gallop Abdomen is soft nontender nondistended positive bowel sounds no hepatosplenomegaly Extremities no edema of the lower extremity is. Left arm in sling. Neuro alert and orientated to 3 Results CBC & Chem 7: 09/14/16 04:48 09/14/16 04:48 Labs: Abnormal Lab Results - Last 24 Hours (Table) 09/13/16 09/13/16 09/13/16 Range/Units 17:22 17:34 17:34 RBC 3.52 L (3.80-5.40) m/uL Hgb 9.6 L (11.4-16.0) gm/dL Hct 32.1 L (34.0-46.0) % MCHC 29.8 L (31.0-37.0) g/dL Plt Count (150-450) k/uL Neutrophils # 8.7 H (1.3-7.7) k/uL Lymphocytes # 0.5 L (1.0-4.8) k/uL PT (9.0-12.0) sec BUN 20 H (7-17) mg/dL Glucose 158 H (74-99) mg/dL POC Glucose (mg/dL) 183 H (75-99) mg/dL Magnesium (1.6-2.3) mg/dL Troponin I (0.000-0.034) ng/mL Total Protein (6.3-8.2) g/dL Albumin (3.5-5.0) g/dL 09/13/16 09/13/16 09/14/16 Range/Units 17:35 17:39 01:35 RBC (3.80-5.40) m/uL Hgb (11.4-16.0) gm/dL Hct (34.0-46.0) % MCHC (31.0-37.0) g/dL Plt Count (150-450) k/uL Neutrophils # (1.3-7.7) k/uL Lymphocytes # (1.0-4.8) k/uL PT 12.9 H (9.0-12.0) sec BUN (7-17) mg/dL Glucose (74-99) mg/dL POC Glucose (mg/dL) 126 H (75-99) mg/dL Magnesium (1.6-2.3) mg/dL Troponin I 0.094 H* (0.000-0.034) ng/mL Total Protein (6.3-8.2) g/dL Albumin (3.5-5.0) g/dL 09/14/16 09/14/16 Range/Units 04:48 04:48 RBC (3.80-5.40) m/uL Hgb 10.8 L (11.4-16.0) gm/dL Hct (34.0-46.0) % MCHC (31.0-37.0) g/dL Plt Count 554 H (150-450) k/uL Neutrophils # (1.3-7.7) k/uL Lymphocytes # (1.0-4.8) k/uL PT (9.0-12.0) sec BUN 22 H (7-17) mg/dL Glucose 102 H (74-99) mg/dL POC Glucose (mg/dL) (75-99) mg/dL Magnesium 2.5 H (1.6-2.3) mg/dL Troponin I (0.000-0.034) ng/mL Total Protein 5.5 L (6.3-8.2) g/dL Albumin 2.7 L (3.5-5.0) g/dL Microbiology - Last 24 Hours (Table) 09/13/16 17:34 Urine Culture - Preliminary Urine,Catheterized Thrombosis Risk Factor Assmnt - Choose All That Apply Any of the Below Risk Factors Present?: Yes Each Factor Represents 1 point: Sepsis (< 1month) Other Risk Factors: Yes Each Risk Factor Represents 3 Points: Age 75 years or older Other congenital or acquired thrombophilia - If yes, enter type in comment: No Thrombosis Risk Factor Assessment Total Risk Factor Score: 4 Thrombosis Risk Factor Assessment Level: Moderate Risk Assessment and Plan Plan: 1. Possible aspiration pneumonia: Patient choked on toast. Patient be evaluated by speech therapy. She's currently on IV Zosyn. Pulmonary service has been consulted 2. Moderate left and small right pleural effusion noted on chest x-ray. Pulmonary has ordered a chest ultrasound. Patient has required thoracentesis in the past 3. Acute diastolic CHF exacerbation: Patient started on IV Lasix. Cardiology consulted 4. 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 Infectious disease consulted. She had been on ceftezole in. We'll await further recommendations 5. Recent acute non-ST elevated myocardial infarction. Unable to tolerate aspirin due to GI bleed. Patient will be reevaluated by cardiology 6. 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 She also has reflux esophagitis. Continue Protonix 40 mg by mouth daily. Hemoglobin currently stable at 10.8. Continue to monitor 7. Pain control: patient continues to complain of pain in the left arm, chest, and abdomen. She is receiving IV morphine and [place]. 8. Essential hypertension 9. Hyperlipidemia 10. Depression continue Zoloft 11. Poor appetite continue the Megace 12. Diabetes mellitus type 2: Add sliding scale coverage GI prophylaxis Protonix and DVT prophylaxis SCDs Time with Patient: Greater than 30 (Greater than 50% of the total time spent in counseling and coordination of care. I performed an examination of the patient and discussed their management with the physician Fine Dining Server. I have reviewed the Physician Fine Dining Server's notes and agree with the documented findings and plan of care)
[2016-09-14] MEDS: FUROSEMIDE 10 MG/ML 4 ML VIAL IV SCH ×2 (10:44→21:14)
--- NOTE | 2016-09-14 10:52 | US ---
EXAMINATION TYPE: US chest DATE OF EXAM: 09/14/2016 COMPARISON: NONE CLINICAL HISTORY: left pleural effusion. EXAM MEASUREMENTS: Left Pleural Effusion fluid pocket: 4.2 cm Left skin to fluid thickness: 3.0 cm Left side marked for possible thoracentesis outside the dept. Pulmonologists are able to review the images in the patient?s EMR. IMPRESSIONS: Left pleural effusion
[2016-09-14 12:05] LABS: Glucose,Whole Blood 133 mg/dL (75-99)
--- NOTE | 2016-09-14 12:50 | CONS ---
DATE OF CONSULTATION: September 13, 2016. REASON FOR CONSULTATION: 1. Sepsis and question of possible aspiration pneumonia. 2. 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 INTERVAL HISTORY: The patient is an 80-year-old female well known to my service who was recently extended stay at this facility where the patient besides other medical problems did have methicillin susceptible Staphylococcus aureus bacteremia felt to be secondary to the left humerus osteomyelitis and follow-up blood culture has been negative. The patient did have a PICC line and is getting IV cefazolin at [facility]. The patient did have a pleural effusion during this admission that did require thoracocentesis and did have multiple EGDs. The patient did have sudden onset of extremely shortness of breath. The patient c/o occasional shortness of breath and then she says she was soaked in her sweat. Patient was subsequently rushed to the [facility] ER. Patient has been evaluated by the ER physician in that facility. The patient did have a CT angiogram that was negative for pulmonary embolism. However, xray did show bilateral pleural effusion and some compressive atelectasis. The patient subsequently has been transferred to [facility] for continuity of care. The patient denies having any fever or chills. The patient did have some cough, not bringing up any sputum. She did mention that she had some difficulty swallowing small amounts of food though. The patient denies having nausea, vomiting and no diarrhea. The abdominal pain seems to have overall improved. REVIEW OF SYSTEMS: CONSTITUTIONAL: Positive for weakness. EYES: No complaint. ENT: No complaint. RESPIRATORY: As per HPI. CARDIOVASCULAR: No complaint. GENITOURINARY: No complaint. RESPIRATORY: No complaint. MUSCULOSKELETAL: As per HPI. INTEGUMENT: No complaint. PSYCHOLOGICAL: No complaint. ENDOCRINE: No complaint. NEUROLOGICAL: No complaint. 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 Adenoidectomy. 2. Cholecystectomy. 3. Coronary artery bypass grafting. 4. Heart catheterization. 5. Tonsillectomy. 6. Tubal ligation. 7. Multiple EGDs. 8. Aspirate of the left humerus. SOCIAL HISTORY: No history of smoking, drinking, or drug use. She is . Currently living at [facility] getting rehab. FAMILY HISTORY: Father with history of diabetes, in his 90s. Mother of old age at age 87. ALLERGIES: No known drug allergies. Medications currently include the patient is on: 1. Tylenol. 2. [place]. 3. Vitamin C. 4. Lipitor. 5. Vitamin D3. 6. Colace. 7. Zetia. 8. Lofibra. 9. Lasix. 10. Imdur. 11. Zestril. 12. Claritin. 13. Megace. 14. Lopressor. 15. Lipitor. 16. Morphine sulfate. 17. Piptazobactam. 18. Vancomycin, pharmacy to dose. On examination, blood pressure is 177/90 with a pulse of 68, temperature is 98.6. She is 100 percent on 2 liters nasal cannula. General description is an elderly female, lying in bed in no distress. No tachypnea or accessory muscles of respiration use. HEENT examination shows no pallor. There is no scleral icterus. Oral mucous membranes dry. NECK: Trachea central, no thyromegaly. LUNGS: Unlabored breathing with decreased breath sounds at the base. No wheeze. HEART: S1, S2 irregular rhythm. ABDOMEN: Soft, no tenderness. No guarding or rigidity. EXTREMITIES: No edema of the feet. Skin: No rash or mass palpable. NEUROLOGICAL: The patient is awake, alert, oriented x3. Mood and affect normal. LABS: Hemoglobin 9.6, white count 9.4 with a BUN of 23, creatinine 0.80. Troponin was slightly elevated. DIAGNOSTIC IMPRESSION AND PLAN: 1. Patient admitted to hospital with sudden of shortness of breath with significant sweating. The patient was transferred to [facility] ER where the patient did have CT angiogram that was negative for pulmonary embolism, however, did show bilateral pleural effusion atelectasis and elevated troponin with question of possible cardiac event and pulmonary pleural effusion, and fluid overload responsible for her underlying respiratory symptoms, pneumonia, though less likely, cannot be excluded especially with the patient history of coughing after food intake with a question of possible aspiration pneumonitis. 2. Patient with left humerus osteomyelitis with Methicillin-susceptible Staph aureus bacteremia. PLAN: 1. Will try to obtain sputum for gram stain culture and sensitivity. 2. The patient will continue Zosyn and vancomycin, pharmacy to dose with a target trough of 15. 3. Will follow up on the clinical condition and cultures to further adjust the medication if needed. Thank you for this consultation. We will follow this patient along with you. CHRISTINA
[2016-09-14] MEDS: INSULIN LISPRO (humaLOG) 300 UNIT/3 ML VIAL SQ SCH ×3 (13:43→21:16)
[2016-09-14 13:51] LABS: Hemoglobin A1C 5.5 % (4.2-6.1)
--- NOTE | 2016-09-14 14:44 | P.CNPUL ---
History of Present Illness Consult date: 09/14/16 Requesting physician: Yuan Guthrie Reason for consult: other (Bilateral pleural effusions) Chief complaint: Cough and shortness of breath after choking on a piece of toast. History of present illness: This is an 80-year-old female who is quite familiar to my service, I saw this patient on her last admission, and I saw her mostly for pleural effusion and I performed a right sided thoracentesis. The fluid was felt to be secondary to congestive heart failure. Patient had a small left pleural effusion which we left alone because of the size and because of the fact that the patient could not be positioned well to perform a safety thoracentesis on the left side. And this is mostly because of her inability to raise her left upper extremity. At any rate patient was discharged on 09/07/2016, and her problems at the time included acute non-ST elevation myocardial infarction, acute GI bleeding secondary to angiectasia in the second part of the duodenum requiring cauterization. Patient was also treated for sepsis and bacteremia with MSSA left humerus osteomyelitis. Patient was actually discharged on IV antibiotics for 4 weeks. Her other problems included hypertension diabetes, coronary artery disease, severe aortic stenosis. Yesterday, patient was sent to the hospital after choking on a piece of toast at [facility]. Patient continued to cough and cough and she also developed shortness of breath. Hence and raises were made for the patient to be admitted and we were asked to see her on consultation. Presently the patient is relatively asymptomatic, she does have abnormal chest x-ray showing moderate left and small right pleural effusion, and there also a mild opacity over the right lower lobe, could be infiltrate in nature. Ultrasound of the chest showed a small pocket of left pleural effusion , 4.2 cm, seems to be a bit smaller compared to the ultrasound done 2 weeks ago. At the time of my evaluation, the patient was noted to be relatively asymptomatic. Review of Systems 14 point review of systems were obtained, please refer to pertinent positives and negatives in the HPI. Past Medical History Past Medical History: Coronary Artery Disease (CAD), Diabetes Mellitus, GERD/ Reflux, Hyperlipidemia, Hypertension, Liver Disease, Myocardial Infarction (AL) , Osteoarthritis (OA) Additional Past Medical History / Comment(s): Coronary artery disease, hypertension, diabetes mellitus, hyperlipidemia, recent fall following an episode of syncope during which the patient sustained a left humeral fracture, episodes of dysphagia, chronic anemia, history of small bowel obstruction related to a ultimately turned out to be benign and was resected, chronic renal failure with stage III kidney disease, CHF with diastolic dysfunction with an ejection fraction of 55-60% based on previous echocardiogram along with aortic stenosis, previous carotid bypass surgery, osteoarthritis Last Myocardial Infarction Date:: 2009 History of Any Multi-Drug Resistant Organisms: None Reported Past Surgical History: Adenoidectomy, Cholecystectomy, Coronary Bypass/CABG, Heart Catheterization, Tonsillectomy, Tubal Ligation Additional Past Surgical History / Comment(s): 2009 Cabg in [place], 04/16/10 colonoscopy with benign polypectomy, liver surgery-unkn what type, cataract removal bilaterally. Past Anesthesia/Blood Transfusion Reactions: Postoperative Nausea & Vomiting ( PONV) Past Psychological History: Depression Additional Psychological History / Comment(s): Pt has history of depression but states that was in the past and no longer an issue for her. She is . She lives alone. She uses a walker to ambulate. She does not drive-her family take her places. Patient states no changes to Smoking Status: Never smoker Past Alcohol Use History: None Reported Past Drug Use History: None Reported - Past Family History Father Family Medical History: Diabetes Mellitus Additional Family Medical History / Comment(s): Pt believes her father was diabetic. He had toes amputated. He in his 90s Mother Family Medical History: Unable to Obtain Additional Family Medical History / Comment(s): Pt knows that her mother was unhealthy but does not know what health problems she might have had. she at 87yrs. Medications and Allergies Home Medications Medication Instructions Recorded Confirmed Type Fenofibrate [Lofibra] 160 mg PO HS 02/15/15 09/13/16 History Pantoprazole Sodium [Protonix] 40 mg PO DAILY 02/15/15 09/13/16 History Ascorbic Acid [Vitamin C] 500 mg PO HS 05/03/16 09/13/16 History Cetirizine HCl 10 mg PO DAILY PRN 05/03/16 09/13/16 History Cholecalciferol [Vitamin D3] 5,000 unit PO HS 05/03/16 09/13/16 History Multivitamins, Thera [Multivitamin 1 tab PO HS 05/03/16 09/13/16 History (formulary)] Potassium Chloride ER [K-Dur 10] 10 meq PO HS 05/03/16 09/13/16 History Sertraline [Zoloft] 100 mg PO HS 05/03/16 09/13/16 History Nitroglycerin Sl Tabs [Nitrostat] 0.4 mg SUBLINGUAL Q5M PRN 05/30/16 09/13/16 History Ezetimibe [Zetia] 10 mg PO DAILY 08/13/16 09/13/16 History ALPRAZolam [Xanax] 0.25 mg PO TID PRN 09/13/16 09/13/16 History Bisacodyl [Dulcolax] 10 mg RECTAL DAILY PRN 09/13/16 09/13/16 History Hydrocodone/Acetaminophen [[place] 1 tab PO Q4H PRN 09/13/16 09/13/16 History 10-325 Tablet] INSULIN LISPRO (humaLOG) [HumaLOG] See Protocol SQ ACHS 09/13/16 09/13/16 History Magnesium Hydroxide [Milk of 2,400 mg PO DAILY PRN 09/13/16 09/13/16 History Magnesia] Metoprolol Tartrate [Lopressor] 25 mg PO BID@0800,2100 09/13/16 09/13/16 History Na Phos,M-B/Na Phos,Di-Ba [Fleet 133 ml RECTAL DAILY PRN 09/13/16 09/13/16 History Adult] ceFAZolin [Kefzol] 2,000 mg IV BID@0800,2100 09/13/16 09/13/16 History Allergies Allergy/AdvReac Type Severity Reaction Status Date / Time No Known Allergies Allergy Verified 09/13/16 16:02 Physical Exam Vitals: Vital Signs Temp Pulse Pulse Resp BP BP Pulse Ox 09/14/16 13:00 62 22 118/58 97 09/14/16 12:00 97.8 F 59 L 18 137/63 98 09/14/16 11:00 66 12 147/71 99 09/14/16 10:00 67 18 152/79 99 09/14/16 09:00 67 16 155/75 97 09/14/16 08:00 97.7 F 66 12 167/81 100 09/14/16 07:29 77 36 H 167/81 100 09/14/16 07:28 111 H 34 H 167/81 100 09/14/16 07:27 74 48 H 167/81 99 09/14/16 07:26 69 34 H 167/81 100 09/14/16 07:25 80 33 H 174/95 100 09/14/16 07:24 65 17 174/95 100 09/14/16 07:23 72 15 174/95 100 09/14/16 07:22 67 14 174/95 100 09/14/16 07:21 58 L 13 174/95 100 09/14/16 07:20 64 17 174/95 99 09/14/16 07:19 82 13 174/95 100 09/14/16 07:18 67 15 174/95 100 09/14/16 07:17 67 12 174/95 100 09/14/16 07:16 69 16 174/95 100 09/14/16 07:15 67 12 174/95 09/14/16 07:14 66 14 174/95 100 09/14/16 07:13 69 18 174/95 100 09/14/16 07:12 72 13 174/95 100 09/14/16 07:11 71 12 174/95 100 09/14/16 07:10 65 12 174/95 100 09/14/16 07:09 65 19 174/95 100 09/14/16 07:08 65 12 174/95 09/14/16 07:07 66 14 174/95 100 09/14/16 07:06 69 25 H 174/95 09/14/16 07:05 66 12 174/95 100 09/14/16 07:00 69 14 174/95 09/14/16 06:30 66 24 171/109 100 09/14/16 06:00 66 15 184/67 09/14/16 05:30 70 18 184/67 09/14/16 05:00 70 20 163/70 09/14/16 04:30 72 21 163/70 09/14/16 04:00 98.0 F 67 27 H 165/75 09/14/16 03:30 66 22 165/75 09/14/16 03:00 67 23 157/77 100 09/14/16 02:30 68 17 157/77 09/14/16 02:00 71 20 165/70 09/14/16 01:30 67 25 H 165/70 09/14/17 01:00 67 25 H 166/68 100 09/14/16 00:30 68 18 166/68 100 09/14/16 00:00 98.2 F 65 25 H 149/68 100 09/13/16 23:30 66 14 149/68 100 09/13/16 23:18 70 48 H 177/90 100 09/13/16 23:00 68 15 177/90 100 09/13/16 22:30 71 15 177/90 100 09/13/16 22:00 75 23 168/82 90 L 09/13/16 21:30 82 23 168/82 92 L 09/13/16 21:00 85 24 168/67 93 L 09/13/16 20:30 86 24 168/67 93 L 09/13/16 20:28 93 L 09/13/16 20:00 98.6 F 82 18 170/67 91 L 09/13/16 19:30 82 18 170/67 90 L 09/13/16 19:00 78 24 170/77 93 L 09/13/16 18:30 75 16 170/77 93 L 09/13/16 18:00 77 20 164/71 92 L 09/13/16 17:50 78 20 164/71 94 L 09/13/16 17:40 74 14 164/71 95 09/13/16 17:30 78 14 164/71 95 09/13/16 17:24 98.5 F 79 14 88 L 09/13/16 16:59 98 F 78 20 142/78 97 09/13/16 16:45 78 20 159/72 97 09/13/16 16:35 97.5 F L 78 14 164/71 94 L 09/13/16 15:45 99.6 F 77 18 144/73 96 Intake and Output 09/13/16 09/14/16 09/14/16 22:59 06:59 14:59 Intake Total 260 130.0 150 Output Total 601 281 126 Balance -341 -151.0 24 Intake: IV 240 130.0 150 Magnesium Sulfate-D5w Pmx 200 1 gm In Dextrose/Water 1 100ml.bag @ 100 mls/hr IVPB Q1H [facility] Rx#: [id number] Piperacillin-Tazobactam 3 50.0 50 .375 gm In Dextrose/Water 1 50ml.bag @ 12.5 mls/hr IVPB Q8HR [facility] Rx#: [id number] Sodium Chloride 0.9% 1, 40 80 100 000 ml @ 20 mls/hr IV . Q24H [facility] Rx#:[id number] Intake, IV Titration 20 Amount Sodium Chloride 0.9% 1, 20 000 ml @ 20 mls/hr IV . Q24H [facility] Rx#:[id number] Output: Urine 601 281 126 Other: Voiding Method Indwelling Catheter Indwelling Catheter Indwelling Catheter Weight 71.6 kg 72.8 kg Physical Exam: Revealed an 80-year-old female in no distress. HEENT:[Neck is supple.] [No neck masses.] [No thyromegaly.] [No JVD.] Chest: [Diminished breath sounds at the bases, no crackles or rhonchi or wheezes ] Cardiac Exam: [Normal S1 and S2, no S3 gallop, 3/6 systolic murmur throughout the precordium.] Abdomen: [Soft, nontender, no megaly, no rebound, no guarding, normal bowel sounds.] Extremities: [Left upper extremity is splinted, otherwise unremarkable.] Neurological Exam: [No focal neurologic deficit.] Results - Laboratory Findings CBC and BMP: 09/14/16 04:48 09/14/16 04:48 PT/INR, D-dimer PT 12.9 sec (9.0-12.0) H 09/13/16 17:39 INR 1.3 (<1.1) 09/13/16 17:39 Abnormal lab findings: Abnormal Labs 09/13/16 09/13/16 09/13/16 17:22 17:34 17:34 RBC 3.52 L Hgb 9.6 L Hct 32.1 L MCHC 29.8 L Plt Count Neutrophils # 8.7 H Lymphocytes # 0.5 L PT BUN 20 H Glucose 158 H POC Glucose (mg/dL) 183 H Magnesium Troponin I Total Protein Albumin 09/13/16 09/13/16 09/14/16 17:35 17:39 01:35 RBC Hgb Hct MCHC Plt Count Neutrophils # Lymphocytes # PT 12.9 H BUN Glucose POC Glucose (mg/dL) 126 H Magnesium Troponin I 0.094 H* Total Protein Albumin 09/14/16 09/14/16 09/14/16 04:48 04:48 12:03 RBC Hgb 10.8 L Hct MCHC Plt Count 554 H Neutrophils # Lymphocytes # PT BUN 22 H Glucose 102 H POC Glucose (mg/dL) 133 H Magnesium 2.5 H Troponin I Total Protein 5.5 L Albumin 2.7 L - Diagnostic Findings Chest x-ray: image reviewed (Small bilateral pleural effusions noted and right lower lobe opacity was also noted.) Additional studies: Ultrasound of the chest was reviewed and agree with the reading as per radiologist. Assessment and Plan Plan: Impression: 1 possible acute aspiration pneumonia, patient is presently on IV antibiotics in the form of Zosyn. And I think that is appropriate for now. 2 bilateral pleural effusions left more so than right, patient has chronic congestive heart failure, previous thoracentesis on the right side showed a transudate of pleural effusion. 3 acute on chronic diastolic congestive heart failure 4 left humerus osteomyelitis secondary to MSSA 5 history of recent non-ST elevation myocardial infarction 6 history of recent upper GI bleeding/duodenal in nature 7 multiple comorbidities including type 2 diabetes, depression, medical debility , hyperlipidemia, essential hypertension, chronic pain syndrome. Recommendation: Reviewed the ultrasound, no need for thoracentesis at this point , the size of the effusion is rather small, and the risks outweigh the benefits at this point. Continue antibiotics for presumptive aspiration pneumonia, and we'll continue to follow. Patient could be transferred out of the ICU to a monitored bed on selective. Time with Patient: Greater than 30
--- NOTE | 2016-09-14 16:29 | CONS ---
DATE OF CONSULTATION: Mrs. Braswell is an 80-year-old female who was transferred from [facility]. She has been at [facility] for a prolonged hospitalization recently and presented again to the emergency room at [facility] with symptoms of dyspnea and a feeling of some food stuck in her throat. She felt dyspneic with it and had some chest pain. She has a prior cardiac history, status post coronary artery bypass grafting performed in [place], prior history of anemia as well as history of aortic and mitral valve disease. Patient is NO CODE, and during her last hospitalization she had a transesophageal echocardiogram as well as transthoracic echocardiogram. Her left ventricular systolic function has been in normal. Her transesophageal echocardiogram showed a normal ventricular systolic function with evidence of severe aortic stenosis as well as moderate to severe mitral regurgitation with a calcified aortic valve and right-sided pulmonary hypertension with a right-sided pressure of 60 to 70 mmHg. Patient at that time was evaluated by Dr. Jimenez, and when she stabilized she was to be reevaluated for the possibility of undergoing TAVR; although discussing the issue with the patient, she cannot recall anything about this issue. She has some chronic peripheral edema. She denies any dizziness. She has some palpitations. No dizziness or recent syncope. No clear PND. No orthopnea. She has chronic pain related to her shoulder and her back and has been on chronic pain medication. During her last admission she had evidence of renal function abnormalities, which have improved. Her coronary risk factors are positive for hyperlipidemia and hypertension. She is diabetic. She is a nonsmoker. Her medications include: 1. Lipitor 40 mg daily. 2. Zyrtec 10 mg daily. 3. Fenofibrate 160 mg daily. 4. Lasix 20 mg daily. 5. Isosorbide mononitrate 30 mg daily. 6. Zestril 5 mg daily. 7. Metoprolol tartrate 25 mg twice a day. 8. Potassium. 9. Zoloft. REVIEW OF SYSTEMS: RESPIRATORY SYSTEM: She had dyspnea on exertion. No recent wheezing. GI SYSTEM: She has no recent nausea or vomiting. SYSTEM: No recent dysuria. NERVOUS SYSTEM: She said that she had a prior history of mini stroke, although I am not sure when it was documented. Past surgical history is remarkable for coronary artery bypass grafting. PHYSICAL EXAMINATION: She is an 80-year-old female in mild discomfort. Alert, mildly dyspneic. Blood pressure running in the 160s, heart rate in the 60s. HEAD: Normocephalic. EYES: Sclerae anicteric. NECK: No jugular venous distention. LUNGS: No wheezes or rales. HEART: Regular rate and rhythm. S1, S2 with systolic murmur 3/6 at the base and a holosystolic murmur at the apex. ABDOMEN: Soft, nontender. Positive bowel sounds. No organomegaly. EXTREMITIES: One plus edema bilaterally. Lab data revealed BUN and creatinine of 22 and 0.8; potassium 4.6. Troponin 0.094. Chest x-ray on presentation shows mild congestion. No EKG is available to me at this point. IMPRESSION: 1. Symptoms of dyspnea with possible mild congestive heart failure on the basis of diastolic dysfunction and valvular disease. Patient has multi-valvular disease. 2. Status post coronary artery bypass grafting. 3. Aortic stenosis, severe, with moderate to severe mitral regurgitation and tricuspid regurgitation. 4. History of chronic back pain. 5. Prior history of renal failure, stable. 6. History of pulmonary hypertension. 7. Status post fracture of the left humerus; not felt to be a surgical candidate. 8. Prior episode of esophagitis and gastrointestinal bleeding. Her hemoglobin was down to the 7 range. 9. Diabetes. 10. Hypertension. 11. Hyperlipidemia. RECOMMENDATIONS: From the cardiac standpoint, I will increase the dose of her diuretics for the next 24 hours, follow her renal function. I will review her prior workup to see if she is a candidate for any valvular intervention, although she poses a very high risk for any intervention because of her multiple issues. Depending on her progress, further recommendations will be made. Patient from the cardiac standpoint should be able to be transferred to the telemetry floor. Thank you for this consult. Will follow with you.
[2016-09-14] MEDS: SODIUM CHLORIDE 0.9% 1,000 ML IV SCH (16:38)
[2016-09-14 18:17] LABS: Glucose,Whole Blood 194 mg/dL (75-99)
[2016-09-14] MEDS: SERTRALINE 100 MG TAB PO SCH (20:09)
[2016-09-14] MEDS: ASCORBIC ACID 500 MG TAB PO SCH (20:10)
[2016-09-14] MEDS: MULTIVITAMINS, THERA 1 EACH TAB PO SCH (20:10)
[2016-09-14] MEDS: CHOLECALCIFEROL 1,000 UNIT TAB PO SCH (20:10)
[2016-09-14] MEDS: POTASSIUM CHLORIDE ER 10 MEQ TAB.ER.PRT PO SCH (20:10)
[2016-09-14] MEDS: ATORVASTATIN 40 MG TAB PO SCH (20:16)
[2016-09-14 21:17] LABS: Glucose,Whole Blood 106 mg/dL (75-99)
--- NOTE | 2016-09-14 22:40 | PN ---
DATE OF SERVICE: 09/14/2016 Reason for follow-up: 1. MSSA bacteremia secondery to left humerus osteomyelitis. 2. Question of aspiration pneumonia. INTERVAL HISTORY The patient is afebrile. She is slightly comfortably. The patient denies significant chest pain. Occasional cough. No abdominal pain. Still has some pain in the left humerus, worsening though. On examination, blood pressure 129/64 with a pulse of 51, temperature is 97.8. She is 95% on 3 liters nasal cannula. General description is an elderly female, lying in bed in no distress. RESPIRATORY SYSTEM: Unlabored breathing with decreased breath sounds at the base. HEART: S1, S2 regular rate and rhythm. ABDOMEN: Soft. EXTREMITIES : No edema of feet. LABS: Hemoglobin is 10.5, white count 9.5 with a BUN of 22, creatinine 0.80. DIAGNOSTIC IMPRESSION AND PLAN: Patient admitted to hospital with difficulty in breathing with underlying bilateral pleural effusion, with question of possible cardiac condition, clinical suspicion remains low for pneumonia. Currently covered with Zosyn. pt also with methicillin susceptible Staphylococcus aureus left humerus osteomyelitis. Continue supportive care. MTDD
[2016-09-15] MEDS: HYDROcodone/APAP 10-325MG 1 EACH TAB PO PRN ×4 (04:14→20:29)
[2016-09-15 05:42] LABS: Glucose,Whole Blood 82 mg/dL (75-99)
[2016-09-15 06:24] LABS: ALT 15 U/L (9-52); AST 23 U/L (14-36); Alkaline Phosphatase 63 U/L (38-126); Anion Gap 10 mmol/L; Blood Urea Nitrogen 26 mg/dL (7-17); Calcium 8.9 mg/dL (8.4-10.2); Carbon Dioxide 29 mmol/L (22-30); Chloride 100 mmol/L (98-107); Glucose 75 mg/dL (74-99); Non-African American GFR(MDRD) 55 (>60 ml/min/1.73 sqM); Potassium 4.3 mmol/L (3.5-5.1); Sodium 139 mmol/L (137-145); Total Bilirubin 0.5 mg/dL (0.2-1.3); Total Protein 5.5 g/dL (6.3-8.2)
[2016-09-15] MEDS: INSULIN LISPRO (humaLOG) 300 UNIT/3 ML VIAL SQ SCH ×4 (06:34→20:39)
[2016-09-15 06:39] LABS: Basophils % (A) 0 %; CH 26.7; CHCM 29.9; Eosinophils # (A) 0.4 k/uL (0-0.7); Eosinophils % (A) 4 %; HCT 29.9 % (34.0-46.0); HDW 3.04; Hypochromasia Marked; Luc # (Auto) 0.17; Luc % (Auto) 2; Lymphocytes # (A) 1.8 k/uL (1.0-4.8); Lymphocytes % (A) 19 %; MCH 27.2 pg (25.0-35.0); MCHC 30.4 g/dL (31.0-37.0); MCV 89.4 fL (80.0-100.0); Mean Platelet Volume 6.6; Monocytes # (A) 0.6 k/uL (0-1.0); Monocytes % (A) 6 %; Neutrophils # (A) 6.4 k/uL (1.3-7.7); Neutrophils % (A) 69 %; RBC 3.35 m/uL (3.80-5.40); RDW 14.4 % (11.5-15.5); WBC 9.3 k/uL (3.8-10.6); WBC (Perox) 9.99
[2016-09-15] MEDS: MORPHINE SULFATE 2 MG/ML SYRINGE IV PRN ×3 (06:44→22:29)
[2016-09-15 06:49] LABS: HGB 9.1 gm/dL (11.4-16.0)
[2016-09-15] MEDS: MEGESTROL 400 MG/10 ML CUP PO SCH (08:43)
[2016-09-15] MEDS: PANTOPRAZOLE 40 MG TABLET PO SCH (08:43)
[2016-09-15] MEDS: POLYETHYLENE GLYCOL 3350 17 GM POWD.PACK PO SCH (08:43)
[2016-09-15] MEDS: ISOSORBIDE MONONITRATE ER 30 MG TAB.ER.24H PO SCH (08:44)
[2016-09-15] MEDS: LISINOPRIL 5 MG TAB PO SCH (08:44)
[2016-09-15] MEDS: FUROSEMIDE 10 MG/ML 4 ML VIAL IV SCH ×2 (08:44→20:30)
[2016-09-15] MEDS: DOCUSATE 100 MG CAP PO SCH (08:45)
[2016-09-15] MEDS: METOPROLOL TARTRATE 25 MG TAB PO SCH ×2 (08:45→20:28)
[2016-09-15] MEDS: EZETIMIBE 10 MG TAB PO SCH (08:45)
[2016-09-15] MEDS: PIPERACILLIN-TAZOBACTAM 3.375 GM in DEXTROSE/WATER 1 50ML.BAG IVPB SCH ×3 (09:19→23:35)
[2016-09-15 11:27] LABS: Glucose,Whole Blood 85 mg/dL (75-99)
--- NOTE | 2016-09-15 12:56 | P.PN ---
Subjective Principal diagnosis: R lower lobe infiltrate, possible pneumonia This is a 80-year-old female, She was recently discharged from [facility] and 09/07/2016 after prolonged hospitalization to [facility]. At that time she had been evaluated for an acute non-ST elevated IN, acute GI bleed secondary to a 1 cm bleeding angiectasia in the second part of the duodenum that had required cauterization. And there is also evidence of esophagitis. She also was treated for sepsis and bacteremia with MSSA likely secondary to the left humerus osteomyelitis. She had been on IV ceftezole and and she was requiring that for 4 more weeks outpatient. She also had evidence of an acute diastolic CHF exacerbation. She also has a history of hyperlipidemia, hypertension, diabetes mellitus, coronary artery disease with previous coronary bypass grafting, and severe aortic stenosis. Patient initially presented to [facility] after choking on a piece of toast yesterday morning at [facility]. Patient states that she choked on a piece of toast at [facility] she was transferred back to [facility] emergency room chest x-ray revealed evidence of right lower lobe infiltrate with pleural effusion she was started on IV antibiotic and was admitted to telemetry floor cardiology and pulmonary consultations were requested On review of systems there is no fever or chills no headache no dizziness no chest pain no shortness of breath she has occasional cough She denies any nausea or vomiting. Reports having formed normal stools. Last bowel movement yesterday. Denies any burning with urination. Objective - Vital Signs Vital signs: Vital Signs Temp 98.4 F 09/15/16 11:37 Pulse 58 L 09/15/16 11:37 Resp 18 09/15/16 11:37 BP 131/59 09/15/16 11:37 Pulse Ox 98 09/15/16 11:37 Intake & Output 09/14/16 09/15/16 09/15/16 18:59 06:59 18:59 Intake Total 170 190 120 Output Total 166 1200 Balance 4 -1010 120 Weight 72.8 kg 74.5 kg Intake: IV 170 190 Piperacillin-Tazobactam 3 50 50 .375 gm In Dextrose/Water 1 50ml.bag @ 12.5 mls/hr IVPB Q8HR [facility] Rx#: [id number] Sodium Chloride 0.9% 1, 120 140 000 ml @ 20 mls/hr IV . Q24H [facility] Rx#:[id number] Oral 120 Output: Urine 166 1200 Other: Voiding Method Indwelling Catheter Indwelling Catheter Indwelling Catheter - Exam In general patient is alert and oriented 3 in no apparent distress HEENT head normocephalic and atraumatic Neck is supple no JVD no goiter no lymphadenopathy Chest exam reveals a few scattered crackles no wheezing Cardiac exam reveals regular heart sounds no gallops no murmurs Abdomen is soft with mild diffuse tenderness no organomegaly no palpable masses Extremity exam reveals no edema no cyanosis or clubbing - Labs CBC & Chem 7: 09/15/16 05:42 09/15/16 05:37 Labs: Abnormal Lab Results - Last 24 Hours (Table) 09/14/16 09/14/16 09/15/16 Range/Units 18:15 21:15 05:37 RBC (3.80-5.40) m/uL Hgb (11.4-16.0) gm/dL Hct (34.0-46.0) % MCHC (31.0-37.0) g/dL Plt Count (150-450) k/uL BUN 26 H (7-17) mg/dL POC Glucose (mg/dL) 194 H 106 H (75-99) mg/dL Total Protein 5.5 L (6.3-8.2) g/dL Albumin 2.8 L (3.5-5.0) g/dL 09/15/16 Range/Units 05:42 RBC 3.35 L (3.80-5.40) m/uL Hgb 9.1 L D (11.4-16.0) gm/dL Hct 29.9 L (34.0-46.0) % MCHC 30.4 L (31.0-37.0) g/dL Plt Count 500 H (150-450) k/uL BUN (7-17) mg/dL POC Glucose (mg/dL) (75-99) mg/dL Total Protein (6.3-8.2) g/dL Albumin (3.5-5.0) g/dL Microbiology - Last 24 Hours (Table) 09/13/16 17:34 Urine Culture - Preliminary Urine,Catheterized Gram Neg Bacilli 09/13/16 17:34 Blood Culture - Preliminary Blood No Growth after 24 hours 09/13/16 17:35 Blood Culture - Preliminary Blood No Growth after 24 hours Assessment and Plan Plan: 1. Possible aspiration pneumonia: Patient choked on toast. Patient be evaluated by speech therapy. She's currently on IV Zosyn. Pulmonary service has been consulted 2. Moderate left and small right pleural effusion noted on chest x-ray. Pulmonary has ordered a chest ultrasound. Patient has required thoracentesis in the past 3. Acute diastolic CHF exacerbation: Patient started on IV Lasix. Cardiology consulted 4. 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 Infectious disease consulted. She had been on ceftezole in. We'll await further recommendations 5. Recent acute non-ST elevated myocardial infarction. Unable to tolerate aspirin due to GI bleed. Patient will be reevaluated by cardiology 6. 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 She also has reflux esophagitis. Continue Protonix 40 mg by mouth daily. Hemoglobin currently stable at 10.8. Continue to monitor 7. Pain control: patient continues to complain of pain in the left arm, chest, and abdomen. She is receiving IV morphine and [place]. 8. Essential hypertension 9. Hyperlipidemia 10. Depression continue Zoloft 11. Poor appetite continue the Megace 12. Diabetes mellitus type 2 Added sliding scale coverage
--- NOTE | 2016-09-15 13:40 | P.PN ---
Subjective This is an 80-year-old female who is quite familiar to my service, I saw this patient on her last admission, and I saw her mostly for pleural effusion and I performed a right sided thoracentesis. The fluid was felt to be secondary to congestive heart failure. Patient had a small left pleural effusion which we left alone because of the size and because of the fact that the patient could not be positioned well to perform a safety thoracentesis on the left side. And this is mostly because of her inability to raise her left upper extremity. At any rate patient was discharged on 09/07/2016, and her problems at the time included acute non-ST elevation myocardial infarction, acute GI bleeding secondary to angiectasia in the second part of the duodenum requiring cauterization. Patient was also treated for sepsis and bacteremia with MSSA left humerus osteomyelitis. Patient was actually discharged on IV antibiotics for 4 weeks. Her other problems included hypertension diabetes, coronary artery disease, severe aortic stenosis. Yesterday, patient was sent to the hospital after choking on a piece of toast at [facility]. Patient continued to cough and cough and she also developed shortness of breath. Hence and raises were made for the patient to be admitted and we were asked to see her on consultation. Presently the patient is relatively asymptomatic, she does have abnormal chest x-ray showing moderate left and small right pleural effusion, and there also a mild opacity over the right lower lobe, could be infiltrate in nature. Ultrasound of the chest showed a small pocket of left pleural effusion , 4.2 cm, seems to be a bit smaller compared to the ultrasound done 2 weeks ago. At the time of my evaluation, the patient was noted to be relatively asymptomatic. The patient is seen again today 09/15/2016 in follow-up in the selective care unit. She is currently resting comfortably in bed. She is awake and alert in no acute distress. She is breathing easier today as compared to yesterday. She is maintaining good O2 saturations on the upper 90s on 3 L/m per nasal cannula. She's been afebrile. No leukocytosis. Hemoglobin stable. Current hemoglobin 9.1. Objective - Vital Signs Vital signs: Vital Signs Temp 98.4 F 09/15/16 11:37 Pulse 58 L 09/15/16 12:00 Resp 18 09/15/16 12:00 BP 131/59 09/15/16 11:37 Pulse Ox 98 09/15/16 11:37 Intake & Output 09/14/16 09/15/16 09/15/16 18:59 06:59 18:59 Intake Total 170 190 120 Output Total 166 1200 Balance 4 -1010 120 Weight 72.8 kg 74.5 kg Intake: IV 170 190 Piperacillin-Tazobactam 3 50 50 .375 gm In Dextrose/Water 1 50ml.bag @ 12.5 mls/hr IVPB Q8HR [facility] Rx#: [id number] Sodium Chloride 0.9% 1, 120 140 000 ml @ 20 mls/hr IV . Q24H [facility] Rx#:[id number] Oral 120 Output: Urine 166 1200 Other: Voiding Method Indwelling Catheter Indwelling Catheter Indwelling Catheter - Exam GENERAL EXAM: Alert, fairly comfortable in no apparent distress. HEAD: Normocephalic. EYES: Normal reaction of pupils, equal size. NOSE: Clear with pink turbinates. THROAT: No erythema or exudates. NECK: No masses, no JVD. CHEST: No chest wall deformity. LUNGS: Equal air entry with faint crackles in the posterior bases. CVS: S1 and S2 normal with an audible murmur, regular rhythm. ABDOMEN: No hepatosplenomegaly, normal bowel sounds, no guarding or rigidity. SPINE: No scoliosis or deformity SKIN: No rashes CENTRAL NERVOUS SYSTEM: No focal deficits, tone is normal in all 4 extremities. Extremities: There is trace peripheral edema. No clubbing, no cyanosis. Peripheral pulses intact. Left upper extremity remains in a sling. - Labs CBC & Chem 7: 09/15/16 05:42 09/15/16 05:37 Labs: Abnormal Lab Results - Last 24 Hours (Table) 09/14/16 09/14/16 09/15/16 Range/Units 18:15 21:15 05:37 RBC (3.80-5.40) m/uL Hgb (11.4-16.0) gm/dL Hct (34.0-46.0) % MCHC (31.0-37.0) g/dL Plt Count (150-450) k/uL BUN 26 H (7-17) mg/dL POC Glucose (mg/dL) 194 H 106 H (75-99) mg/dL Total Protein 5.5 L (6.3-8.2) g/dL Albumin 2.8 L (3.5-5.0) g/dL 09/15/16 Range/Units 05:42 RBC 3.35 L (3.80-5.40) m/uL Hgb 9.1 L D (11.4-16.0) gm/dL Hct 29.9 L (34.0-46.0) % MCHC 30.4 L (31.0-37.0) g/dL Plt Count 500 H (150-450) k/uL BUN (7-17) mg/dL POC Glucose (mg/dL) (75-99) mg/dL Total Protein (6.3-8.2) g/dL Albumin (3.5-5.0) g/dL Microbiology - Last 24 Hours (Table) 09/13/16 17:34 Urine Culture - Preliminary Urine,Catheterized Gram Neg Bacilli 09/13/16 17:34 Blood Culture - Preliminary Blood No Growth after 24 hours 09/13/16 17:35 Blood Culture - Preliminary Blood No Growth after 24 hours Assessment and Plan Plan: Impression: 1 possible acute aspiration pneumonia, patient is presently on IV antibiotics in the form of Zosyn. And I think that is appropriate for now. 2 bilateral pleural effusions left more so than right, patient has chronic congestive heart failure, previous thoracentesis on the right side showed a transudate of pleural effusion. 3 acute on chronic diastolic congestive heart failure 4 left humerus osteomyelitis secondary to MSSA 5 history of recent non-ST elevation myocardial infarction 6 history of recent upper GI bleeding/duodenal in nature 7 multiple comorbidities including type 2 diabetes, depression, medical debility , hyperlipidemia, essential hypertension, chronic pain syndrome. Plan: The patient was seen and evaluated by Dr. Hardy. There are no plans for thoracentesis at this time. We'll continue to diurese the patient. We'll continue antibiotics in form of Zosyn. We'll continue to follow.
--- NOTE | 2016-09-15 15:06 | P.PN ---
Subjective Principal diagnosis: CHF This is an 80-year-old female who was admitted to the hospital here with symptoms of dyspnea and feeling some food stuck in her throat. Patient has a prior cardiac history significant for coronary artery bypass grafting surgery, anemia, aortic and mitral valve disease, patient had a CLARIBEL as well as a regular echo performed on her last admission which revealed a normal left ventricular systolic function with evidence of severe aortic stenosis and moderate to severe mitral regurg with a calcified aortic valve. Right-sided pulmonary hypertension with a right sided pressure of 60-70 mg of mercury. Patient at that time was evaluated by Dr. Jimenez and it was felt that when she stabilized she be reevaluated for possibly undergoing a TAVR procedure. Patient was initiated on IV Lasix yesterday, continues to diurese well overall. Creatinine today is 0.9. At the time of my examination this morning she is complaining of left shoulder and hip pain with mild nausea and decreased appetite. Continues to feel mildly short of breath, continues to have peripheral edema. Objective - Vital Signs Vital signs: Vital Signs Temp 98.4 F 09/15/16 11:37 Pulse 58 L 09/15/16 12:00 Resp 18 09/15/16 12:00 BP 131/59 09/15/16 11:37 Pulse Ox 98 09/15/16 11:37 Intake & Output 09/14/16 09/15/16 09/15/16 18:59 06:59 18:59 Intake Total 170 190 240 Output Total 166 1200 Balance 4 -1010 240 Weight 72.8 kg 74.5 kg Intake: IV 170 190 Piperacillin-Tazobactam 3 50 50 .375 gm In Dextrose/Water 1 50ml.bag @ 12.5 mls/hr IVPB Q8HR [facility] Rx#: [id number] Sodium Chloride 0.9% 1, 120 140 000 ml @ 20 mls/hr IV . Q24H [facility] Rx#:[id number] Oral 240 Output: Urine 166 1200 Other: Voiding Method Indwelling Catheter Indwelling Catheter Indwelling Catheter - Exam PHYSICAL EXAMINATION: HEENT: Head is atraumatic, normocephalic. Pupils equal, round. Neck is supple. There is no elevated jugular venous pressure. HEART EXAMINATION: S1 and S2 systolic murmur and holosystolic murmur are heard. CHEST EXAMINATION: Lungs are clear to auscultation and precussion. No chest wall tenderness is noted on palpation or with deep breathing. ABDOMEN: Soft, nontender. Bowel sounds are heard. No organomegaly noted. EXTREMITIES: 2+ peripheral pulses with 1+ evidence of peripheral edema and no calf tenderness noted. NEUROLOGIC patient is awake, alert and oriented -3. . - Labs CBC & Chem 7: 09/15/16 05:42 09/15/16 05:37 Labs: Abnormal Lab Results - Last 24 Hours (Table) 09/14/16 09/14/16 09/15/16 Range/Units 18:15 21:15 05:37 RBC (3.80-5.40) m/uL Hgb (11.4-16.0) gm/dL Hct (34.0-46.0) % MCHC (31.0-37.0) g/dL Plt Count (150-450) k/uL BUN 26 H (7-17) mg/dL POC Glucose (mg/dL) 194 H 106 H (75-99) mg/dL Total Protein 5.5 L (6.3-8.2) g/dL Albumin 2.8 L (3.5-5.0) g/dL 09/15/16 Range/Units 05:42 RBC 3.35 L (3.80-5.40) m/uL Hgb 9.1 L D (11.4-16.0) gm/dL Hct 29.9 L (34.0-46.0) % MCHC 30.4 L (31.0-37.0) g/dL Plt Count 500 H (150-450) k/uL BUN (7-17) mg/dL POC Glucose (mg/dL) (75-99) mg/dL Total Protein (6.3-8.2) g/dL Albumin (3.5-5.0) g/dL Microbiology - Last 24 Hours (Table) 09/13/16 17:34 Urine Culture - Preliminary Urine,Catheterized Gram Neg Bacilli 09/13/16 17:34 Blood Culture - Preliminary Blood No Growth after 24 hours 09/13/16 17:35 Blood Culture - Preliminary Blood No Growth after 24 hours Assessment and Plan (1) Diastolic CHF, acute on chronic Status: Acute (2) Severe aortic stenosis Status: Acute (3) Moderate mitral regurgitation Status: Acute (4) Tricuspid regurgitation Status: Acute (5) Renal failure, chronic Status: Acute (6) Pulmonary HTN Status: Acute (7) Left humeral fracture Status: Acute (8) Diabetes Status: Acute (9) HTN (hypertension) Status: Acute (10) Hyperlipemia Status: Acute Plan: Cardiology's perspective, we'll recommend to continue diuresis with IV Lasix for another 24 hours. We will check lytes BUN and creatinine in the morning. DNP note has been reviewed, I agree with a documented findings and plan of care. Patient was seen and examined.
[2016-09-15] MEDS: SODIUM CHLORIDE 0.9% 1,000 ML IV SCH (15:48)
[2016-09-15 16:54] LABS: Glucose,Whole Blood 129 mg/dL (75-99)
[2016-09-15] MEDS: CHOLECALCIFEROL 1,000 UNIT TAB PO SCH (20:28)
[2016-09-15] MEDS: POTASSIUM CHLORIDE ER 10 MEQ TAB.ER.PRT PO SCH (20:29)
[2016-09-15] MEDS: ASCORBIC ACID 500 MG TAB PO SCH (20:29)
[2016-09-15] MEDS: SERTRALINE 100 MG TAB PO SCH (20:29)
[2016-09-15] MEDS: MULTIVITAMINS, THERA 1 EACH TAB PO SCH (20:29)
[2016-09-15] MEDS: ATORVASTATIN 40 MG TAB PO SCH (20:29)
[2016-09-15 20:37] LABS: Glucose,Whole Blood 111 mg/dL (75-99)
[2016-09-16] MEDS: HYDROcodone/APAP 10-325MG 1 EACH TAB PO PRN ×4 (03:43→20:41)
[2016-09-16 04:38] VITALS: RESP 18
--- NOTE | 2016-09-16 06:00 | PN ---
DATE OF SERVICE: 09/15/2016 Reason for followup is: 1. Possible aspiration pneumonitis. 2. MSSA bacteremia and left humerus osteomyelitis. INTERVAL HISTORY: The patient is afebrile. She is breathing more comfortably. Occasional cough. No chest pain or abdominal pain. Did complain of some pain in her left shoulder area. On examination, blood pressure 126/57 with a pulse of 64, temperature 97.9. She is 100% on 3 L nasal cannula. General description is an elderly female, lying in bed in no distress. RESPIRATORY SYSTEM: Unlabored breathing. Clear to auscultation anteriorly. HEART: S1, S2, Regular rate and rhythm. ABDOMEN: Soft, no tenderness. LABS: Hemoglobin 9.1, white count 9.3 with a BUN of 26, creatinine 0.98. Blood cultures so far negative. DIAGNOSTIC IMPRESSION AND PLAN: Patient admitted to hospital with acute shortness of breath, occasional cough, possible aspiration pneumonitis with bilateral pleural effusion and elevated troponin. Currently being evaluated by cardiology and pulmonary services. Currently on Zosyn, to be continued. If all the cultures remain to be negative, will be transitioned back to the cefazolin to finish her therapy for her underlying osteomyelitis. Continue supportive care. CHRISTINA
[2016-09-16 06:07] LABS: Glucose,Whole Blood 86 mg/dL (75-99)
[2016-09-16 06:27] LABS: Basophils % (A) 0 %; CH 26.8; CHCM 29.6; Eosinophils # (A) 0.3 k/uL (0-0.7); Eosinophils % (A) 4 %; HCT 33.2 % (34.0-46.0); HDW 2.84; HGB 9.8 gm/dL (11.4-16.0); Hypochromasia Marked; Luc # (Auto) 0.12; Luc % (Auto) 1; Lymphocytes # (A) 1.7 k/uL (1.0-4.8); Lymphocytes % (A) 20 %; MCH 26.6 pg (25.0-35.0); MCHC 29.4 g/dL (31.0-37.0); MCV 90.4 fL (80.0-100.0); Mean Platelet Volume 6.8; Monocytes # (A) 0.6 k/uL (0-1.0); Monocytes % (A) 7 %; Neutrophils # (A) 5.8 k/uL (1.3-7.7); Neutrophils % (A) 68 %; RBC 3.67 m/uL (3.80-5.40); RDW 14.5 % (11.5-15.5); WBC 8.5 k/uL (3.8-10.6); WBC (Perox) 8.82
[2016-09-16] MEDS: INSULIN LISPRO (humaLOG) 300 UNIT/3 ML VIAL SQ SCH ×4 (06:44→21:08)
[2016-09-16 06:50] LABS: Calcium 9.1 mg/dL (8.4-10.2); Potassium 4.1 mmol/L (3.5-5.1); Total Bilirubin 0.5 mg/dL (0.2-1.3); Total Protein 5.5 g/dL (6.3-8.2)
[2016-09-16] MEDS: MEGESTROL 400 MG/10 ML CUP PO SCH (08:40)
[2016-09-16] MEDS: METOPROLOL TARTRATE 25 MG TAB PO SCH ×2 (08:41→20:44)
[2016-09-16] MEDS: FUROSEMIDE 10 MG/ML 4 ML VIAL IV SCH (08:41)
[2016-09-16] MEDS: EZETIMIBE 10 MG TAB PO SCH (08:41)
[2016-09-16] MEDS: POLYETHYLENE GLYCOL 3350 17 GM POWD.PACK PO SCH (08:41)
[2016-09-16] MEDS: DOCUSATE 100 MG CAP PO SCH (08:41)
[2016-09-16] MEDS: ISOSORBIDE MONONITRATE ER 30 MG TAB.ER.24H PO SCH (08:42)
[2016-09-16] MEDS: PANTOPRAZOLE 40 MG TABLET PO SCH (08:42)
[2016-09-16] MEDS: LISINOPRIL 5 MG TAB PO SCH (08:42)
[2016-09-16] MEDS: PIPERACILLIN-TAZOBACTAM 3.375 GM in DEXTROSE/WATER 1 50ML.BAG IVPB SCH ×2 (09:52→15:54)
--- NOTE | 2016-09-16 10:55 | P.PN ---
Subjective This is an 80-year-old female who is quite familiar to my service, I saw this patient on her last admission, and I saw her mostly for pleural effusion and I performed a right sided thoracentesis. The fluid was felt to be secondary to congestive heart failure. Patient had a small left pleural effusion which we left alone because of the size and because of the fact that the patient could not be positioned well to perform a safety thoracentesis on the left side. And this is mostly because of her inability to raise her left upper extremity. At any rate patient was discharged on 09/07/2016, and her problems at the time included acute non-ST elevation myocardial infarction, acute GI bleeding secondary to angiectasia in the second part of the duodenum requiring cauterization. Patient was also treated for sepsis and bacteremia with MSSA left humerus osteomyelitis. Patient was actually discharged on IV antibiotics for 4 weeks. Her other problems included hypertension diabetes, coronary artery disease, severe aortic stenosis. Yesterday, patient was sent to the hospital after choking on a piece of toast at [facility]. Patient continued to cough and cough and she also developed shortness of breath. Hence and raises were made for the patient to be admitted and we were asked to see her on consultation. Presently the patient is relatively asymptomatic, she does have abnormal chest x-ray showing moderate left and small right pleural effusion, and there also a mild opacity over the right lower lobe, could be infiltrate in nature. Ultrasound of the chest showed a small pocket of left pleural effusion , 4.2 cm, seems to be a bit smaller compared to the ultrasound done 2 weeks ago. At the time of my evaluation, the patient was noted to be relatively asymptomatic. The patient is seen again today 09/15/2016 in follow-up in the selective care unit. She is currently resting comfortably in bed. She is awake and alert in no acute distress. She is breathing easier today as compared to yesterday. She is maintaining good O2 saturations on the upper 90s on 3 L/m per nasal cannula. She's been afebrile. No leukocytosis. Hemoglobin stable. Current hemoglobin 9.1. The patient is seen again today 09/16/2016 in follow-up on the selective care unit. She is resting quite comfortably in bed. She is awake and alert in no acute distress. She did attempt to stand to get to the commode however her legs were quite weak and she could not support herself. She does have some dyspnea on minimal exertion. She is maintaining good O2 saturations in high 90s on 1.5 L/m per nasal cannula. She's been afebrile. No leukocytosis. Hemoglobin stable at 9.8. Creatinine 1.11. Her urine is positive for Pseudomonas. She is currently on Zosyn. Objective - Vital Signs Vital signs: Vital Signs Temp 98.2 F 09/16/16 08:00 Pulse 73 09/16/16 08:00 Resp 18 09/16/16 08:00 BP 189/84 09/16/16 08:00 Pulse Ox 98 09/16/16 08:00 Intake & Output 09/15/16 09/16/16 09/16/16 18:59 06:59 18:59 Intake Total 360 210 Output Total 700 1950 Balance -340 -1740 Weight 77.5 kg Intake: IV 120 160 Sodium Chloride 0.9% 1, 120 160 000 ml @ 20 mls/hr IV . Q24H [facility] Rx#:[id number] Oral 240 50 Output: Urine 700 1950 Other: Voiding Method Indwelling Catheter Indwelling Catheter Indwelling Catheter # Bowel Movements 0 - Exam GENERAL EXAM: Alert, fairly comfortable in no apparent distress. HEAD: Normocephalic. EYES: Normal reaction of pupils, equal size. NOSE: Clear with pink turbinates. THROAT: No erythema or exudates. NECK: No masses, no JVD. CHEST: No chest wall deformity. LUNGS: Equal air entry with faint crackles in the posterior bases. CVS: S1 and S2 normal with an audible murmur, regular rhythm. ABDOMEN: No hepatosplenomegaly, normal bowel sounds, no guarding or rigidity. SPINE: No scoliosis or deformity SKIN: No rashes CENTRAL NERVOUS SYSTEM: No focal deficits, tone is normal in all 4 extremities. Extremities: There is trace peripheral edema. No clubbing, no cyanosis. Peripheral pulses intact. Left upper extremity remains in a sling. - Labs CBC & Chem 7: 09/16/16 05:29 09/16/16 05:29 Labs: Abnormal Lab Results - Last 24 Hours (Table) 09/15/16 09/15/16 09/16/16 Range/Units 16:51 20:35 05:29 RBC 3.67 L (3.80-5.40) m/uL Hgb 9.8 L (11.4-16.0) gm/dL Hct 33.2 L (34.0-46.0) % MCHC 29.4 L (31.0-37.0) g/dL Plt Count 525 H (150-450) k/uL Chloride (98-107) mmol/L Carbon Dioxide (22-30) mmol/L BUN (7-17) mg/dL Creatinine (0.52-1.04) mg/dL POC Glucose (mg/dL) 129 H 111 H (75-99) mg/dL Total Protein (6.3-8.2) g/dL Albumin (3.5-5.0) g/dL 09/16/16 Range/Units 05:29 RBC (3.80-5.40) m/uL Hgb (11.4-16.0) gm/dL Hct (34.0-46.0) % MCHC (31.0-37.0) g/dL Plt Count (150-450) k/uL Chloride 96 L (98-107) mmol/L Carbon Dioxide 32 H (22-30) mmol/L BUN 28 H (7-17) mg/dL Creatinine 1.11 H (0.52-1.04) mg/dL POC Glucose (mg/dL) (75-99) mg/dL Total Protein 5.5 L (6.3-8.2) g/dL Albumin 2.8 L (3.5-5.0) g/dL Microbiology - Last 24 Hours (Table) 09/13/16 17:34 Urine Culture - Final Urine,Catheterized Pseudomonas aeruginosa 09/13/16 17:34 Blood Culture - Preliminary Blood No Growth after 48 hours 09/13/16 17:35 Blood Culture - Preliminary Blood No Growth after 48 hours Assessment and Plan Plan: Impression: 1 possible acute aspiration pneumonia, patient is presently on IV antibiotics in the form of Zosyn. And I think that is appropriate for now. 2 bilateral pleural effusions left more so than right, patient has chronic congestive heart failure, previous thoracentesis on the right side showed a transudate of pleural effusion. 3 acute on chronic diastolic congestive heart failure 4 left humerus osteomyelitis secondary to MSSA 5 history of recent non-ST elevation myocardial infarction 6 history of recent upper GI bleeding/duodenal in nature 7 Pseudomonas urinary tract infection. 8 multiple comorbidities including type 2 diabetes, depression, medical debility , hyperlipidemia, essential hypertension, chronic pain syndrome. Plan: The patient was seen and evaluated by Dr. Hardy. We'll continue to diurese the patient. We'll continue antibiotics in form of Zosyn. PT/OT has been ordered. She also has a barium swallow pending. We'll continue to follow.
[2016-09-16 12:02] LABS: Glucose,Whole Blood 92 mg/dL (75-99)
--- NOTE | 2016-09-16 13:37 | P.PN ---
Subjective Principal diagnosis: R lower lobe infiltrate, possible pneumonia This is a 80-year-old female, She was recently discharged from [facility] and 09/07/2016 after prolonged hospitalization to [facility]. At that time she had been evaluated for an acute non-ST elevated [place], acute GI bleed secondary to a 1 cm bleeding angiectasia in the second part of the duodenum that had required cauterization. And there is also evidence of esophagitis. She also was treated for sepsis and bacteremia with MSSA likely secondary to the left humerus osteomyelitis. She had been on IV ceftezole and and she was requiring that for 4 more weeks outpatient. She also had evidence of an acute diastolic CHF exacerbation. She also has a history of hyperlipidemia, hypertension, diabetes mellitus, coronary artery disease with previous coronary bypass grafting, and severe aortic stenosis. Patient initially presented to [facility] after choking on a piece of toast yesterday morning at [facility]. Patient states that she choked on a piece of toast at [facility] she was transferred back to [facility] emergency room chest x-ray revealed evidence of right lower lobe infiltrate with pleural effusion she was started on IV antibiotic and was admitted to telemetry floor cardiology and pulmonary consultations were requested On review of systems there is no fever or chills no headache no dizziness no chest pain no shortness of breath she has occasional cough She denies any nausea or vomiting. Reports having formed normal stools. Last bowel movement yesterday. Denies any burning with urination. Objective - Vital Signs Vital signs: Vital Signs Temp 98.2 F 09/16/16 08:00 Pulse 73 09/16/16 08:00 Resp 18 09/16/16 08:00 BP 189/84 09/16/16 08:00 Pulse Ox 98 09/16/16 08:00 Intake & Output 09/15/16 09/16/16 09/16/16 18:59 06:59 18:59 Intake Total 360 210 50 Output Total 700 1950 Balance -340 1742 50 Weight 77.5 kg Intake: IV 120 160 Sodium Chloride 0.9% 1, 120 160 000 ml @ 20 mls/hr IV . Q24H [facility] Rx#:[id number] Oral 240 50 50 Output: Urine 700 1950 Other: Voiding Method Indwelling Catheter Indwelling Catheter Indwelling Catheter # Bowel Movements 0 - Exam In general patient is alert and oriented 3 in no apparent distress HEENT head normocephalic and atraumatic Neck is supple no JVD no goiter no lymphadenopathy Chest exam reveals a few scattered crackles no wheezing Cardiac exam reveals regular heart sounds no gallops no murmurs Abdomen is soft with mild diffuse tenderness no organomegaly no palpable masses Extremity exam reveals no edema no cyanosis or clubbing - Labs CBC & Chem 7: 09/16/16 05:29 09/16/16 05:29 Labs: Abnormal Lab Results - Last 24 Hours (Table) 09/15/16 09/15/16 09/16/16 Range/Units 16:51 20:35 05:29 RBC 3.67 L (3.80-5.40) m/uL Hgb 9.8 L (11.4-16.0) gm/dL Hct 33.2 L (34.0-46.0) % MCHC 29.4 L (31.0-37.0) g/dL Plt Count 525 H (150-450) k/uL Chloride (98-107) mmol/L Carbon Dioxide (22-30) mmol/L BUN (7-17) mg/dL Creatinine (0.52-1.04) mg/dL POC Glucose (mg/dL) 129 H 111 H (75-99) mg/dL Total Protein (6.3-8.2) g/dL Albumin (3.5-5.0) g/dL 09/16/16 Range/Units 05:29 RBC (3.80-5.40) m/uL Hgb (11.4-16.0) gm/dL Hct (34.0-46.0) % MCHC (31.0-37.0) g/dL Plt Count (150-450) k/uL Chloride 96 L (98-107) mmol/L Carbon Dioxide 32 H (22-30) mmol/L BUN 28 H (7-17) mg/dL Creatinine 1.11 H (0.52-1.04) mg/dL POC Glucose (mg/dL) (75-99) mg/dL Total Protein 5.5 L (6.3-8.2) g/dL Albumin 2.8 L (3.5-5.0) g/dL Microbiology - Last 24 Hours (Table) 09/13/16 17:34 Urine Culture - Final Urine,Catheterized Pseudomonas aeruginosa 09/13/16 17:34 Blood Culture - Preliminary Blood No Growth after 48 hours 09/13/16 17:35 Blood Culture - Preliminary Blood No Growth after 48 hours Assessment and Plan Plan: 1. Possible aspiration pneumonia: Patient choked on toast. Patient be evaluated by speech therapy. She's currently on IV Zosyn. Pulmonary service has been consulted 2. Moderate left and small right pleural effusion noted on chest x-ray. Pulmonary has ordered a chest ultrasound. Patient has required thoracentesis in the past 3. Acute diastolic CHF exacerbation: Patient started on IV Lasix. Cardiology consulted 4. 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 Infectious disease consulted. 5. Recent acute non-ST elevated myocardial infarction. Unable to tolerate aspirin due to GI bleed. Patient will be reevaluated by cardiology 6. 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 She also has reflux esophagitis. Continue Protonix 40 mg by mouth daily. Hemoglobin currently stable at 10.8. Continue to monitor 7. Pain control: patient continues to complain of pain in the left arm, chest, and abdomen. She is receiving IV morphine and [place]. 8. Urinary tract infection with pseudomonas aeruginosa continue was current antibiotic 9. Hyperlipidemia 10. Depression continue Zoloft 11. Poor appetite continue the Megace 12. Diabetes mellitus type 2 Added sliding scale coverage 13. For DVT prophylaxis patient on Lovenox for GI prophylaxis patient on Pepcid
--- NOTE | 2016-09-16 15:13 | P.PN ---
Subjective Principal diagnosis: CHF Is a pleasant 80-year-old female who was admitted hospital with symptoms of dyspnea and feeling some stuck in her throat. Patient has a prior cardiac history significant for coronary artery bypass grafting surgery, anemia , aortic and mitral valve disease, she had a CLARIBEL as it well as a regular echo performed on her last admission which revealed a normal LV systolic function and evidence of severe aortic stenosis and moderate to severe mitral regurg with a calcified aortic valve. Also showed right-sided pulmonary hypertension with a right sided pressure of 60-70 millimeters mercury. At that time patient was evaluated by Dr. Jimenez it was felt that when she stabilized she should be evaluated for possible TAVR procedure. After admission currently, patient was initiated on IV Lasix. Creatinine today is 1.1 at the time of my examination patient is sitting up in a chair feels her breathing is stable no improvement since yesterday. She does feel her edema has improved significantly. She is currently on Lasix 40 mg IV push every 12 hours. Objective - Vital Signs Vital signs: Vital Signs Temp 98.6 F 09/16/16 12:00 Pulse 66 09/16/16 12:00 Resp 18 09/16/16 12:00 BP 122/58 09/16/16 12:00 Pulse Ox 97 09/16/16 12:00 Intake & Output 09/15/16 09/16/16 09/16/16 18:59 06:59 18:59 Intake Total 360 210 50 Output Total 700 1950 Balance -340 1742 50 Weight 77.5 kg Intake: IV 120 160 Sodium Chloride 0.9% 1, 120 160 000 ml @ 20 mls/hr IV . Q24H [facility] Rx#:[id number] Oral 240 50 50 Output: Urine 700 1950 Other: Voiding Method Indwelling Catheter Indwelling Catheter Indwelling Catheter # Bowel Movements 0 - Exam PHYSICAL EXAMINATION: HEENT: Head is atraumatic, normocephalic. Pupils equal, round. Neck is supple. There is no elevated jugular venous pressure. HEART EXAMINATION: Heart sounds regular, S1 and S2 systolic murmur and holosystolic murmur heard. CHEST EXAMINATION: Lungs are clear to auscultation and precussion. No chest wall tenderness is noted on palpation or with deep breathing. ABDOMEN: Soft, nontender. Bowel sounds are heard. No organomegaly noted. EXTREMITIES: 2+ peripheral pulses with evidence of trace peripheral edema and no calf tenderness noted. NEUROLOGIC patient is awake, alert and oriented x3. . - Labs CBC & Chem 7: 09/16/16 05:29 09/16/16 05:29 Labs: Abnormal Lab Results - Last 24 Hours (Table) 09/15/16 09/15/16 09/16/16 Range/Units 16:51 20:35 05:29 RBC 3.67 L (3.80-5.40) m/uL Hgb 9.8 L (11.4-16.0) gm/dL Hct 33.2 L (34.0-46.0) % MCHC 29.4 L (31.0-37.0) g/dL Plt Count 525 H (150-450) k/uL Chloride (98-107) mmol/L Carbon Dioxide (22-30) mmol/L BUN (7-17) mg/dL Creatinine (0.52-1.04) mg/dL POC Glucose (mg/dL) 129 H 111 H (75-99) mg/dL Total Protein (6.3-8.2) g/dL Albumin (3.5-5.0) g/dL 09/16/16 Range/Units 05:29 RBC (3.80-5.40) m/uL Hgb (11.4-16.0) gm/dL Hct (34.0-46.0) % MCHC (31.0-37.0) g/dL Plt Count (150-450) k/uL Chloride 96 L (98-107) mmol/L Carbon Dioxide 32 H (22-30) mmol/L BUN 28 H (7-17) mg/dL Creatinine 1.11 H (0.52-1.04) mg/dL POC Glucose (mg/dL) (75-99) mg/dL Total Protein 5.5 L (6.3-8.2) g/dL Albumin 2.8 L (3.5-5.0) g/dL Microbiology - Last 24 Hours (Table) 09/13/16 17:34 Urine Culture - Final Urine,Catheterized Pseudomonas aeruginosa 09/13/16 17:34 Blood Culture - Preliminary Blood No Growth after 48 hours 09/13/16 17:35 Blood Culture - Preliminary Blood No Growth after 48 hours Assessment and Plan Plan: Assessment and plan #1 acute on chronic diastolic congestive heart failure #2 severe aortic stenosis #3 moderate mitral regurgitation #4 chronic renal failure #5 pulmonary hypertension #6 diabetes #7 hypertension #8 hyperlipidemia From cardiology perspective, we will stop IV Lasix and initiate the patient on Lasix 40 mg by mouth 3 times a day. We will continue to monitor renal function. Further recommendations to follow. [employer] note has been reviewed, I agree with a documented findings and plan of care. Patient was seen and examined.
[2016-09-16] MEDS: FAMOTIDINE 20 MG TAB PO SCH (15:54)
[2016-09-16] MEDS: MORPHINE SULFATE 2 MG/ML SYRINGE IV PRN ×2 (15:54→20:43)
[2016-09-16] MEDS: ENOXAPARIN 40 MG/0.4 ML SYRINGE SQ SCH (15:54)
[2016-09-16] MEDS: SODIUM CHLORIDE 0.9% 1,000 ML IV SCH (15:56)
[2016-09-16] MEDS: FUROSEMIDE 40 MG TAB PO SCH (15:56)
--- NOTE | 2016-09-16 16:07 | FL ---
EXAMINATION TYPE: FL barium swallow w video DATE OF EXAM: 09/16/2016 COMPARISON: NONE HISTORY: Difficulty swallowing TECHNIQUE: Fluoroscopy. FINDINGS: Fluoroscopic guidance was provided for the procedure performed in conjunction with the [facility] ech pathology department. Please see complete report forthcoming from the Speech Pathology departmen t. Various consistencies from thin liquid to solids were administered. No aspiration was evident. No significant pooling was observed in the vallecula. IMPRESSION: 1. Significant abnormality not identified. Please see complete report forthcoming from the speech pat hology department.
--- NOTE | 2016-09-16 16:31 | CDI ---
In responding to this query, please exercise your independent professional judgment. The [facility] Coding Staff and Clinical Documentation Specialists appreciate your assistance in clarifying documentation, maintaining compliance with coding guidelines, accurately documenting patients condition and capturing severity of illness. The fact that a question is asked does not imply that any particular answer is desired or expected. Communication forms are a method of clarifying documentation and are not made part of the Legal Health Record. Thank you in advance for your clarification. Last Revision, June [address] [place] [address] Documentation Clarification Form Date: 09/16/2016 3:55:00 PM From: Ema Hays RN, CCDS Admit Date: 09/13/2016 4:24:00 PM Patient Name: Dulce Maria Braswell Visit Number: [id number] Discharge Date: Dr. Taylor Mcknight Osteomyelitis has been documented in the H&P, and progress notes: Treatment: IV Zosyn Clinical Indicators: Patient with ongoing treatment via PICC line for osteomyelitis of the left humerus . Patient denies having any fever or chills. She complains of left shoulder and hip pain. She had a fall and sustained a left humeral fracture. Patient did have prior blood culture positive for Staphylococcus aureus bacteremia felt to be secondary to the left humerus osteomyelitis and follow-up blood culture has been negative. In your professional opinion, please further specify the following: Acuity: Acute Chronic Subacute Unable to Determine Cause: Viral (specify organism if know): Bacterial (specify organism if know): Other (please specify): Unable to Determine Associated condition (if applicable): Diabetic Major osseous defect (specify site) Other (please specify): Please document in your progress notes and discharge summary in order to capture severity of illness and risk of mortality. Include clinical findings that support your diagnosis. FYI: Press F11 to launch patient chart ___x__ Place X here if this finding has no clinical significance, is not applicable or if you are not able to provide any additional documentation. CHRISTINA
[2016-09-16 17:10] LABS: Glucose,Whole Blood 109 mg/dL (75-99)
[2016-09-16] MEDS: MULTIVITAMINS, THERA 1 EACH TAB PO SCH (20:44)
[2016-09-16] MEDS: ATORVASTATIN 40 MG TAB PO SCH (20:44)
[2016-09-16] MEDS: ASCORBIC ACID 500 MG TAB PO SCH (20:44)
[2016-09-16] MEDS: CHOLECALCIFEROL 1,000 UNIT TAB PO SCH (20:44)
[2016-09-16] MEDS: POTASSIUM CHLORIDE ER 10 MEQ TAB.ER.PRT PO SCH (20:44)
[2016-09-16] MEDS: SERTRALINE 100 MG TAB PO SCH (20:45)
[2016-09-16 20:59] LABS: Glucose,Whole Blood 131 mg/dL (75-99)
[2016-09-17] MEDS: PIPERACILLIN-TAZOBACTAM 3.375 GM in DEXTROSE/WATER 1 50ML.BAG IVPB SCH ×2 (01:07→10:14)
[2016-09-17] MEDS: MORPHINE SULFATE 2 MG/ML SYRINGE IV PRN ×3 (01:07→10:13)
[2016-09-17] MEDS: HYDROcodone/APAP 10-325MG 1 EACH TAB PO PRN (02:49)
--- NOTE | 2016-09-17 05:18 | PN ---
DATE OF SERVICE: 09/16/2016 REASON FOR FOLLOWUP: 1. MSSA, left humerus acute osteomyelitis. 2. Possible aspiration pneumonia. 3. UTI. INTERVAL HISTORY: The patient is afebrile. She is breathing comfortably. Complaining of some pain in the left shoulder area. No nausea or vomiting. No abdominal pain or any diarrhea. On examination, blood pressure 126/62 with a pulse of 67, temperature 98.6. She is 96% 1.5 L nasal cannula. General description is an elderly female, lying in bed in no distress. RESPIRATORY SYSTEM: Unlabored breathing with decreased breath sounds at the base. No wheeze. HEART: S1, S2. Regular rate and rhythm. ABDOMEN: Soft. No tenderness. LABS: Hemoglobin 9.8, white count 8.5 with a BUN of 28, creatinine 1.11. Urine did show Pseudomonas aeruginosa, which is sensitive pathogen. Unfortunately no UA was done to see how infected the urine was. DIAGNOSTIC IMPRESSION AND PLAN: Patient admitted to the hospital with difficulty in breathing, which is more likely cardiopulmonary condition with evidence of perfusion and slightly elevated troponin with concern for possible aspiration pneumonitis. She has received about 5 days of Zosyn that should be enough. Will be planning to transition her to cefazolin on discharge and the Zosyn should cover the mild urinary tract infection with urine showing Pseudomonas. Continue supportive care. CHRISTINA
[2016-09-17 06:03] LABS: Glucose,Whole Blood 97 mg/dL (75-99)
[2016-09-17] MEDS: INSULIN LISPRO (humaLOG) 300 UNIT/3 ML VIAL SQ SCH ×2 (06:46→13:08)
[2016-09-17 07:09] LABS: Basophils % (A) 0 %; CH 26.9; CHCM 30.4; Eosinophils # (A) 0.3 k/uL (0-0.7); Eosinophils % (A) 3 %; HCT 33.1 % (34.0-46.0); HDW 2.94; Hypochromasia Marked; Luc # (Auto) 0.16; Luc % (Auto) 2; Lymphocytes # (A) 1.8 k/uL (1.0-4.8); Lymphocytes % (A) 21 %; MCH 26.6 pg (25.0-35.0); MCHC 30.1 g/dL (31.0-37.0); MCV 88.4 fL (80.0-100.0); Mean Platelet Volume 6.7; Monocytes # (A) 0.6 k/uL (0-1.0); Monocytes % (A) 7 %; Neutrophils # (A) 5.8 k/uL (1.3-7.7); Neutrophils % (A) 67 %; RBC 3.74 m/uL (3.80-5.40); RDW 14.6 % (11.5-15.5); WBC 8.7 k/uL (3.8-10.6); WBC (Perox) 9.54
[2016-09-17 07:21] LABS: ALT 18 U/L (9-52); AST 23 U/L (14-36); Alkaline Phosphatase 64 U/L (38-126); Anion Gap 10 mmol/L; Blood Urea Nitrogen 24 mg/dL (7-17); Calcium 9.2 mg/dL (8.4-10.2); Carbon Dioxide 35 mmol/L (22-30); Chloride 95 mmol/L (98-107); Glucose 85 mg/dL (74-99); Non-African American GFR(MDRD) 50 (>60 ml/min/1.73 sqM); Sodium 140 mmol/L (137-145); Total Bilirubin 0.5 mg/dL (0.2-1.3); Total Protein 5.5 g/dL (6.3-8.2)
[2016-09-17] MEDS: ENOXAPARIN 40 MG/0.4 ML SYRINGE SQ SCH (09:54)
[2016-09-17] MEDS: DOCUSATE 100 MG CAP PO SCH (09:55)
[2016-09-17] MEDS: METOPROLOL TARTRATE 25 MG TAB PO SCH (09:58)
[2016-09-17] MEDS: EZETIMIBE 10 MG TAB PO SCH (09:59)
[2016-09-17] MEDS: FAMOTIDINE 20 MG TAB PO SCH (09:59)
[2016-09-17] MEDS: MEGESTROL 400 MG/10 ML CUP PO SCH (09:59)
[2016-09-17] MEDS: ISOSORBIDE MONONITRATE ER 30 MG TAB.ER.24H PO SCH (10:00)
[2016-09-17] MEDS: POLYETHYLENE GLYCOL 3350 17 GM POWD.PACK PO SCH (10:00)
[2016-09-17] MEDS: PANTOPRAZOLE 40 MG TABLET PO SCH (10:00)
[2016-09-17] MEDS: FUROSEMIDE 40 MG TAB PO SCH (10:03)
[2016-09-17] MEDS: LISINOPRIL 5 MG TAB PO SCH (10:03)
[2016-09-17 12:07] LABS: Glucose,Whole Blood 194 mg/dL (75-99)
--- NOTE | 2016-09-17 12:21 | P.PN ---
Subjective This is an 80-year-old female who is quite familiar to my service, I saw this patient on her last admission, and I saw her mostly for pleural effusion and I performed a right sided thoracentesis. The fluid was felt to be secondary to congestive heart failure. Patient had a small left pleural effusion which we left alone because of the size and because of the fact that the patient could not be positioned well to perform a safety thoracentesis on the left side. And this is mostly because of her inability to raise her left upper extremity. At any rate patient was discharged on 09/07/2016, and her problems at the time included acute non-ST elevation myocardial infarction, acute GI bleeding secondary to angiectasia in the second part of the duodenum requiring cauterization. Patient was also treated for sepsis and bacteremia with MSSA left humerus osteomyelitis. Patient was actually discharged on IV antibiotics for 4 weeks. Her other problems included hypertension diabetes, coronary artery disease, severe aortic stenosis. Yesterday, patient was sent to the hospital after choking on a piece of toast at [facility]. Patient continued to cough and cough and she also developed shortness of breath. Hence and raises were made for the patient to be admitted and we were asked to see her on consultation. Presently the patient is relatively asymptomatic, she does have abnormal chest x-ray showing moderate left and small right pleural effusion, and there also a mild opacity over the right lower lobe, could be infiltrate in nature. Ultrasound of the chest showed a small pocket of left pleural effusion , 4.2 cm, seems to be a bit smaller compared to the ultrasound done 2 weeks ago. At the time of my evaluation, the patient was noted to be relatively asymptomatic. The patient is seen again today 09/15/2016 in follow-up in the selective care unit. She is currently resting comfortably in bed. She is awake and alert in no acute distress. She is breathing easier today as compared to yesterday. She is maintaining good O2 saturations on the upper 90s on 3 L/m per nasal cannula. She's been afebrile. No leukocytosis. Hemoglobin stable. Current hemoglobin 9.1. The patient is seen again today 09/16/2016 in follow-up on the selective care unit. She is resting quite comfortably in bed. She is awake and alert in no acute distress. She did attempt to stand to get to the commode however her legs were quite weak and she could not support herself. She does have some dyspnea on minimal exertion. She is maintaining good O2 saturations in high 90s on 1.5 L/m per nasal cannula. She's been afebrile. No leukocytosis. Hemoglobin stable at 9.8. Creatinine 1.11. Her urine is positive for Pseudomonas. She is currently on Zosyn. The patient is seen again today 09/17/2016 in follow-up on the selective care unit. She has awake and alert in no acute distress. She has been up with assistance and up in the chair. She is getting stronger. She denies any worsening shortness of breath, cough or congestion. Her only complaint is that of continued left shoulder discomfort. She is maintaining good O2 saturations in the 90s on room air. She's been afebrile. No leukocytosis. Hemoglobin stable at 10.0. Objective - Vital Signs Vital signs: Vital Signs Temp 98.1 F 09/17/16 00:00 Pulse 65 09/17/16 04:00 Resp 18 09/17/16 04:00 BP 149/72 09/17/16 04:00 Pulse Ox 96 09/17/16 04:00 Intake & Output 09/16/16 09/17/16 09/17/16 18:59 06:59 18:59 Intake Total 200 340 Output Total 1200 1600 Balance -1000 -1260 Intake: IV 340 Piperacillin-Tazobactam 3 100 .375 gm In Dextrose/Water 1 50ml.bag @ 12.5 mls/hr IVPB Q8HR [facility] Rx#: [id number] Sodium Chloride 0.9% 1, 240 000 ml @ 20 mls/hr IV . Q24H [facility] Rx#:[id number] Oral 200 Output: Urine 1200 1600 Uretheral (Pham) 400 Other: Voiding Method Indwelling Catheter Indwelling Catheter # Bowel Movements 1 - Exam GENERAL EXAM: Alert, fairly comfortable in no apparent distress. HEAD: Normocephalic. EYES: Normal reaction of pupils, equal size. NOSE: Clear with pink turbinates. THROAT: No erythema or exudates. NECK: No masses, no JVD. CHEST: No chest wall deformity. LUNGS: Equal air entry with faint crackles in the posterior bases. CVS: S1 and S2 normal with an audible murmur, regular rhythm. ABDOMEN: No hepatosplenomegaly, normal bowel sounds, no guarding or rigidity. SPINE: No scoliosis or deformity SKIN: No rashes CENTRAL NERVOUS SYSTEM: No focal deficits, tone is normal in all 4 extremities. Extremities: There is trace peripheral edema. No clubbing, no cyanosis. Peripheral pulses intact. Left upper extremity remains in a sling. - Labs CBC & Chem 7: 09/17/16 06:31 09/17/16 06:31 Labs: Abnormal Lab Results - Last 24 Hours (Table) 09/16/16 09/16/16 09/17/16 Range/Units 16:50 20:57 06:31 RBC 3.74 L (3.80-5.40) m/uL Hgb 10.0 L (11.4-16.0) gm/dL Hct 33.1 L (34.0-46.0) % MCHC 30.1 L (31.0-37.0) g/dL Plt Count 532 H (150-450) k/uL Chloride (98-107) mmol/L Carbon Dioxide (22-30) mmol/L BUN (7-17) mg/dL Creatinine (0.52-1.04) mg/dL POC Glucose (mg/dL) 109 H 131 H (75-99) mg/dL Total Protein (6.3-8.2) g/dL Albumin (3.5-5.0) g/dL 09/17/16 09/17/16 Range/Units 06:31 11:57 RBC (3.80-5.40) m/uL Hgb (11.4-16.0) gm/dL Hct (34.0-46.0) % MCHC (31.0-37.0) g/dL Plt Count (150-450) k/uL Chloride 95 L (98-107) mmol/L Carbon Dioxide 35 H (22-30) mmol/L BUN 24 H (7-17) mg/dL Creatinine 1.05 H (0.52-1.04) mg/dL POC Glucose (mg/dL) 194 H (75-99) mg/dL Total Protein 5.5 L (6.3-8.2) g/dL Albumin 2.8 L (3.5-5.0) g/dL Microbiology - Last 24 Hours (Table) 09/13/16 17:34 Blood Culture - Preliminary Blood No Growth after 72 hours 09/13/16 17:35 Blood Culture - Preliminary Blood No Growth after 72 hours Assessment and Plan Plan: Impression: 1 possible acute aspiration pneumonia, patient is presently on IV antibiotics in the form of Zosyn. And I think that is appropriate for now. 2 bilateral pleural effusions left more so than right, patient has chronic congestive heart failure, previous thoracentesis on the right side showed a transudate of pleural effusion. 3 acute on chronic diastolic congestive heart failure 4 left humerus osteomyelitis secondary to MSSA 5 history of recent non-ST elevation myocardial infarction 6 history of recent upper GI bleeding/duodenal in nature 7 Pseudomonas urinary tract infection. 8 multiple comorbidities including type 2 diabetes, depression, medical debility , hyperlipidemia, essential hypertension, chronic pain syndrome. Plan: The patient was seen and evaluated by Dr. Hardy. Stable from the pulmonary standpoint and could be transferred back to the ECF. Antibiotics per ID.
--- NOTE | 2016-09-17 13:33 | XR ---
EXAMINATION TYPE: XR shoulder complete LT, XR humerus LT DATE OF EXAM: 09/17/2016 CLINICAL HISTORY: Left humeral fracture with new pain TECHNIQUE: Three views of the left shoulder are obtained. 2 views of left humerus are acquired. COMPARISON: Left humeral x-ray May 03, 2016. FINDINGS: Osseous structures are demineralized is noted to lower radiographic sensitivity. Comminuted displaced fracture right proximal humeral metaphysis is redemonstrated. Some interval callus formati on is present. No new fracture is seen. Overlying soft tissue is unremarkable. Visualized ribs are in tact. IMPRESSION: There is interval healing of comminuted displaced proximal left humeral fracture. No new fractures are evident.
--- NOTE | 2016-09-17 13:50 | XR ---
EXAMINATION TYPE: XR chest 1V portable DATE OF EXAM: 09/17/2016 CLINICAL HISTORY: Difficulty breathing progress study. TECHNIQUE: Single AP portable upright view of the chest is obtained. COMPARISON: Chest x-ray from 3 days earlier. FINDINGS: A right-sided PICC line is stable in appearance. There is persistent moderate to large lef t pleural effusion and associated left basilar atelectasis and/or infiltrate. There is small to moder ate-sized right pleural effusion. Underlying cardiomegaly is suspected. There is atherosclerotic thor acic aorta. Central vascular congestion is seen. There is healing fracture left proximal humerus. Con trast from recent swallow study is seen in the upper abdomen. IMPRESSION: Overall stable findings, suspect CHF exacerbation or fluid overload state as there is c ardiomegaly with moderate to large left and small to moderate size right pleural effusion as well as central vascular congestion, underlying bibasilar atelectasis and/or infiltrate is noted.
--- NOTE | 2016-09-17 13:53 | P.DS ---
Providers Date of admission: 09/13/16 16:24 Expected date of discharge: 09/17/16 Attending physician: Yuan Guthrie Consults: 09/13/16 16:13 Consult Physician Stat Consulting Provider: Miranda Matos Consult Reason/Comments: Congestive heart failure, pneumonia, respiratory distress Do you want consulting provider notified?: Yes Consult Physician Stat Consulting Provider: Janie Jimenez Consult Reason/Comments: Chest pain, congestive heart failure Do you want consulting provider notified?: Yes Consult Physician Stat Consulting Provider: Taylor Mcknight Consult Reason/Comments: Multi organ infectious disease Do you want consulting provider notified?: Yes Primary care physician: Franca Irving Hospital Course: Discharge diagnosis 1. Possible aspiration pneumonia: Patient choked on toast. Patient be evaluated by speech therapy. She's currently on IV Zosyn. Pulmonary service has been consulted 2. Moderate left and small right pleural effusion noted on chest x-ray. Followed by pulmonary service. No thoracentesis needed during this admission. Pleural effusions are likely's due to her congestive heart failure 3. Acute on chronicdiastolic CHF exacerbation: cardiology is switched her over to oral Lasix 4. 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 Infectious disease consulted. 5. Recent acute non-ST elevated myocardial infarction. Unable to tolerate aspirin due to GI bleed. Patient will be reevaluated by cardiology 6. 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 She also has reflux esophagitis. Continue Protonix 40 mg by mouth daily. Hemoglobin currently stable at 10.8. Continue to monitor 8. Urinary tract infection with pseudomonas aeruginosa continue was current antibiotic 9. Hyperlipidemia 10. Depression continue Zoloft 11. Poor appetite continue the Megace 12. Diabetes mellitus type 2 Added sliding scale coverage Hospital course this is a 80-year-old female, patient of Dr. Fuentes. She was recently discharged from [facility] and 09/07/2016 after prolonged hospitalization to [facility]. At that time she had been evaluated for an acute non-ST elevated NM, acute GI bleed secondary to a 1 cm bleedingangiectasia in the second part of the duodenum that had required cauterization. And there is also evidence of esophagitis. She also was treated for sepsis and bacteremia with MSSA likely secondary to the left humerus osteomyelitis. She had been on IV ceftezole and and she was requiring that for 4 more weeks outpatient. She also had evidence of an acute diastolic CHF exacerbation. She also has a history of hyperlipidemia, hypertension, diabetes mellitus, coronary artery disease with previous coronary bypass grafting, and severe aortic stenosis. Patient initially presented to [facility] after choking on a piece of toast yesterday morning at [facility]. Patient continued to cough and had shortness of breath. Due to her recent hospitalization and extensive hospitalization at [facility]. Patient was transferred from [facility] yesterday. Patient was admitted to the ICU. She is currently stable. She does complain of pain in her shoulder chest and abdomen. These have been chronic pains for the patient. The troponin checked was at 0.094. Chest x-ray showing moderate left and small right pleural effusion. Mild opacity over the right lung field. Infiltrate and pleural effusion could be considered. Patient was started on IV Zosyn for possible aspiration pneumonia. Pulmonary and cardiology have been consulted. Initial chest x-ray had shown concerns about congestive heart failure. She was started on Lasix 40 mg IV every 12 hours. Patient still reports a poor appetite at times. Patient was able to be transferred out of the ICU to the sixth floor. Patient was treated with IV Lasix for her CHF exacerbation. Cardiology switch her over to Lasix 40 mg twice a day. Her potassium supplement will also be increased. Recommend checking BMP in 1 week. Also, infectious disease recommended ceftezole and 2 g IV every 8 hours for 4 more weeks to complete treatment for the osteomyelitis with MSSA in the left humerus. Patient completed 6 days of Zosyn for treatment of the aspiration pneumonia and UTI with Pseudomonas. Patient is been cleared by consulting physicians for discharge. She'll be discharged to [facility]. Recommend checking CBC and BMP in 1 week. Patient Condition at Discharge: Stable Plan - Discharge Summary New Discharge Prescriptions: New ceFAZolin [Kefzol] 2 gm IV Q8H #84 bag Furosemide [Lasix] 40 mg PO BID@0900,1600 tab Continue Fenofibrate [Lofibra] 160 mg PO HS Pantoprazole Sodium [Protonix] 40 mg PO DAILY Ascorbic Acid [Vitamin C] 500 mg PO HS Cetirizine HCl 10 mg PO DAILY PRN PRN Reason: Allergy Symptoms Cholecalciferol [Vitamin D3] 5,000 unit PO HS Multivitamins, Thera [Multivitamin (formulary)] 1 tab PO HS Sertraline [Zoloft] 100 mg PO HS Nitroglycerin Sl Tabs [Nitrostat] 0.4 mg SUBLINGUAL Q5M PRN PRN Reason: Chest Pain Lisinopril [Zestril] 5 mg PO DAILY #30 tab Ezetimibe [Zetia] 10 mg PO DAILY Atorvastatin [Lipitor] 40 mg PO HS tab Docusate [Colace] 100 mg PO DAILY #0 cap Isosorbide Mononitrate ER [Imdur] 30 mg PO DAILY tab Megestrol [Megace] 800 mg PO DAILY dose Polyethylene Glycol 3350 [Miralax] 17 gm PO DAILY pack Na Phos,M-B/Na Phos,Di-Ba [Fleet Adult] 133 ml RECTAL DAILY PRN PRN Reason: Constipation Bisacodyl [Dulcolax] 10 mg RECTAL DAILY PRN PRN Reason: Constipation INSULIN LISPRO (humaLOG) [humaLOG (formulary)] See Protocol SQ ACHS Magnesium Hydroxide [Milk of Magnesia] 2,400 mg PO DAILY PRN PRN Reason: Constipation Metoprolol Tartrate [Lopressor] 25 mg PO BID@0800,2100 ALPRAZolam [Xanax] 0.25 mg PO TID PRN #42 PRN Reason: Anxiety Hydrocodone/Acetaminophen [[place] 10-325 Tablet] 1 tab PO Q4H PRN #40 PRN Reason: Moderate Pain Changed Potassium Chloride ER [K-Dur 10] 20 meq PO HS #0 Discontinued Furosemide [Lasix] 20 mg PO DAILY tab ceFAZolin [Kefzol] 2,000 mg IV BID@0800,2100 Discharge Medication List Fenofibrate [Lofibra] 160 mg PO HS 02/15/15 [History] Pantoprazole Sodium [Protonix] 40 mg PO DAILY 02/15/15 [History] Ascorbic Acid [Vitamin C] 500 mg PO HS 05/03/16 [History] Cetirizine HCl 10 mg PO DAILY PRN 05/03/16 [History] Cholecalciferol [Vitamin D3] 5,000 unit PO HS 05/03/16 [History] Multivitamins, Thera [Multivitamin (formulary)] 1 tab PO HS 05/03/16 [History] Sertraline [Zoloft] 100 mg PO HS 05/03/16 [History] Nitroglycerin Sl Tabs [Nitrostat] 0.4 mg SUBLINGUAL Q5M PRN 05/30/16 [History] Lisinopril [Zestril] 5 mg PO DAILY #30 tab 06/04/16 [Rx] Ezetimibe [Zetia] 10 mg PO DAILY 08/13/16 [History] Atorvastatin [Lipitor] 40 mg PO HS tab 09/07/16 [Rx] Docusate [Colace] 100 mg PO DAILY #0 cap 09/07/16 [Rx] Isosorbide Mononitrate ER [Imdur] 30 mg PO DAILY tab 09/07/16 [Rx] Megestrol [Megace] 800 mg PO DAILY dose 09/07/16 [Rx] Polyethylene Glycol 3350 [Miralax] 17 gm PO DAILY pack 09/07/16 [Rx] Bisacodyl [Dulcolax] 10 mg RECTAL DAILY PRN 09/13/16 [History] INSULIN LISPRO (humaLOG) [humaLOG (formulary)] See Protocol SQ ACHS 09/13/16 [ History] Magnesium Hydroxide [Milk of Magnesia] 2,400 mg PO DAILY PRN 09/13/16 [History] Metoprolol Tartrate [Lopressor] 25 mg PO BID@0800,2100 09/13/16 [History] Na Phos,M-B/Na Phos,Di-Ba [Fleet Adult] 133 ml RECTAL DAILY PRN 09/13/16 [ History] ALPRAZolam [Xanax] 0.25 mg PO TID PRN #42 09/17/16 [Rx] Furosemide [Lasix] 40 mg PO BID@0900,1600 tab 09/17/16 [Rx] Hydrocodone/Acetaminophen [[place] 10-325 Tablet] 1 tab PO Q4H PRN #40 09/17/16 [ Rx] Potassium Chloride ER [K-Dur 10] 20 meq PO HS #0 09/17/16 [Rx] ceFAZolin [Kefzol] 2 gm IV Q8H #84 bag 09/17/16 [Rx] Follow up Appointment(s)/Referral(s): Franca Irving DO [Primary Care Provider] - 1 Week Taylor Mcknight MD [STAFF PHYSICIAN] - 1 Week Activity/Diet/Wound Care/Special Instructions: Diet: cardiac, diabetic, chin tuck with liquids, aspiration precautions Activity: As tolerated Check CBC and BMP in 1 week Patient to be Transferred back to [facility]. Dr. Guthrie to follow at [facility] Discharge Disposition: TRANSFER TO SNF/ECF
--- NOTE | 2016-09-17 14:40 | P.PN ---
Subjective Principal diagnosis: CHF This is an 80-year-old female who was admitted to the hospital here with symptoms of dyspnea and feeling some food stuck in her throat. Patient has a prior cardiac history significant for coronary artery bypass grafting surgery, anemia, aortic and mitral valve disease, patient had a CLARIBEL as well as a regular echo performed on her last admission which revealed a normal left ventricular systolic function with evidence of severe aortic stenosis and moderate to severe mitral regurg with a calcified aortic valve. Right-sided pulmonary hypertension with a right sided pressure of 60-70 mg of mercury. Patient at that time was evaluated by Dr. Jimenez and it was felt that when she stabilized she be reevaluated for possibly undergoing a TAVR procedure. Patient was initiated on IV Lasix , continues to diurese well overall. Creatinine today is 1.05. Patient is sitting up in the chair this morning, overall feeling better. Continues to be on IV Lasix. Her edema is significantly improved. Objective - Vital Signs Vital signs: Vital Signs Temp 98.1 F 09/17/16 00:00 Pulse 65 09/17/16 04:00 Resp 18 09/17/16 04:00 BP 149/72 09/17/16 04:00 Pulse Ox 96 09/17/16 04:00 Intake & Output 09/16/16 09/17/16 09/17/16 18:59 06:59 18:59 Intake Total 200 340 Output Total 1200 1600 Balance -1000 -1260 Intake: IV 340 Piperacillin-Tazobactam 3 100 .375 gm In Dextrose/Water 1 50ml.bag @ 12.5 mls/hr IVPB Q8HR ALBA Rx#: [id number] Sodium Chloride 0.9% 1, 240 000 ml @ 20 mls/hr IV . Q24H ALBA Rx#:[id number] Oral 200 Output: Urine 1200 1600 Uretheral (Pham) 400 Other: Voiding Method Indwelling Catheter Indwelling Catheter # Bowel Movements 1 - Exam PHYSICAL EXAMINATION: HEENT: Head is atraumatic, normocephalic. Pupils equal, round. Neck is supple. There is no elevated jugular venous pressure. HEART EXAMINATION: S1 and S2 systolic murmur and holosystolic murmur are heard. CHEST EXAMINATION: Lungs are clear to auscultation and precussion. No chest wall tenderness is noted on palpation or with deep breathing. ABDOMEN: Soft, nontender. Bowel sounds are heard. No organomegaly noted. EXTREMITIES: 2+ peripheral pulses with trace evidence of peripheral edema and no calf tenderness noted. NEUROLOGIC patient is awake, alert and oriented -3. . - Labs CBC & Chem 7: 09/17/16 06:31 09/17/16 06:31 Labs: Abnormal Lab Results - Last 24 Hours (Table) 09/16/16 09/16/16 09/17/16 Range/Units 16:50 20:57 06:31 RBC 3.74 L (3.80-5.40) m/uL Hgb 10.0 L (11.4-16.0) gm/dL Hct 33.1 L (34.0-46.0) % MCHC 30.1 L (31.0-37.0) g/dL Plt Count 532 H (150-450) k/uL Chloride (98-107) mmol/L Carbon Dioxide (22-30) mmol/L BUN (7-17) mg/dL Creatinine (0.52-1.04) mg/dL POC Glucose (mg/dL) 109 H 131 H (75-99) mg/dL Total Protein (6.3-8.2) g/dL Albumin (3.5-5.0) g/dL 09/17/16 09/17/16 Range/Units 06:31 11:57 RBC (3.80-5.40) m/uL Hgb (11.4-16.0) gm/dL Hct (34.0-46.0) % MCHC (31.0-37.0) g/dL Plt Count (150-450) k/uL Chloride 95 L (98-107) mmol/L Carbon Dioxide 35 H (22-30) mmol/L BUN 24 H (7-17) mg/dL Creatinine 1.05 H (0.52-1.04) mg/dL POC Glucose (mg/dL) 194 H (75-99) mg/dL Total Protein 5.5 L (6.3-8.2) g/dL Albumin 2.8 L (3.5-5.0) g/dL Microbiology - Last 24 Hours (Table) 09/13/16 17:34 Blood Culture - Preliminary Blood No Growth after 72 hours 09/13/16 17:35 Blood Culture - Preliminary Blood No Growth after 72 hours Assessment and Plan (1) Diastolic CHF, acute on chronic Status: Acute (2) Severe aortic stenosis Status: Acute (3) Moderate mitral regurgitation Status: Acute (4) Tricuspid regurgitation Status: Acute (5) Renal failure, chronic Status: Acute (6) Pulmonary HTN Status: Acute (7) Left humeral fracture Status: Acute (8) Diabetes Status: Acute (9) HTN (hypertension) Status: Acute (10) Hyperlipemia Status: Acute Plan: Cardiology's perspective, we'll recommend to continue diuresis with IV Lasix for another 24 hours. We will check lytes BUN and creatinine in the morning. DNP note has been reviewed, I agree with a documented findings and plan of care. Patient was seen and examined.
[2016-09-17 15:14] VITALS: BP 139/57; PULSE 66; TEMP 97.8
--- NOTE | 2016-09-17 19:53 | PN ---
DATE OF SERVICE: 09/17/2016 Reason for follow-up: MSSA left humerus osteomyelitis and pseudomonas UTI. INTERVAL HISTORY: The patient is afebrile. She has been feeling better. She was seen on round earlier this afternoon. No significant chest pain, no cough. No abdominal pain. On examination, blood pressure 139/57 with a pulse of 66, temperature 97.8. She is 96% on 5 L nasal cannula. General description is an elderly female up in the chair in no distress. RESPIRATORY SYSTEM: Unlabored breathing. Clear to auscultation anteriorly. HEART: S1, S2 regular rate and rhythm. ABDOMEN: Soft, no tenderness. LABS: Hemoglobin is 10.7, white count 8.7, BUN of 24, creatinine 1.05. DIAGNOSTIC IMPRESSION AND PLAN: 1. The patient admitted to the hospital with difficulty breathing which is likely multifactorial from underlying cardiopulmonary condition. Clinically doubt significant pneumonia. Hence, antibiotic will be directed more towards her left humerus acute osteomyelitis with Methicillin-susceptible Staph aureus bacteremia, antibiotic switched over to cefazolin 2 grams q.8 for another 3 to 4 days with outpatient follow up. 2. The patient has pseudomonas urinary tract infection, adequately treated with about 5 days of IV Zosyn. MTDD
== END 2016-09-17 15:05 | DRG 177 ==
LOC: EC 15:25 → 6ICU 16:24 → 6SEL 09-14 22:10
PROVIDERS: ADMIT Internal Medicine; ATTEND Internal Medicine
DX: J69.0 Pneumonitis due to inhalation of food and vomit (principal); I21.4 Non-ST elevation (NSTEMI) myocardial infarction; I50.33 Acute on chronic diastolic (congestive) heart failure; M86.122 Other acute osteomyelitis, left humerus; I27.2 Other secondary pulmonary hypertension; E11.22 Type 2 diabetes mellitus with diabetic chronic kidney disease; E11.69 Type 2 diabetes mellitus with other specified complication; B95.61 Methicillin susceptible Staphylococcus aureus infection as the cause of diseases classified elsewhere; R13.10 Dysphagia, unspecified; I13.0 Hypertensive heart and chronic kidney disease with heart failure and stage 1 through stage 4 chronic kidney disease, or unspecified chronic kidney disease; S42.302A Unspecified fracture of shaft of humerus, left arm, initial encounter for closed fracture; N39.0 Urinary tract infection, site not specified; I25.10 Atherosclerotic heart disease of native coronary artery without angina pectoris; I08.3 Combined rheumatic disorders of mitral, aortic and tricuspid valves; E78.5 Hyperlipidemia, unspecified; F32.9 Major depressive disorder, single episode, unspecified; G89.4 Chronic pain syndrome; K21.0 Gastro-esophageal reflux disease with esophagitis; N18.3 Chronic kidney disease, stage 3 (moderate); B96.5 Pseudomonas (aeruginosa) (mallei) (pseudomallei) as the cause of diseases classified elsewhere; Z79.899 Other long term (current) drug therapy; Z95.1 Presence of aortocoronary bypass graft; Z79.4 Long term (current) use of insulin; R63.0 Anorexia
CPT/HCPCS: 71010; 74230; 76604; 80048; 80053; 83036; 83605; 83735; 84100; 84484; 85025; 85610; 85730; 87040; 87077; 87086; 87186; 99284